=== PATIENT | female | born 1955 | race Hispanic/Latino ===

== ENCOUNTER 2016-09-10 18:47 | Inpatient (IN) | payer MEDICAID ==
[~2016-09-10] VITALS: Ht 160 cm; Wt 115.9 kg
[~2016-09-10 18:47] MED LIST: FLUO20TA28 PO; FURO-129 PO; INSU100V7 SUBQ; OMEP10CA4 PO; OXYC-474 PO; SPIR100T3 PO
[2016-09-10 19:10] VITALS: BP 169/63; PULSE 76; RESP 20; O2SAT 100
[2016-09-10 20:03] LABS: BASOPHILS % (AUTO) 0.2 % (0-3); EOSINOPHILS % (AUTO) 9.3 % (0-5); MONOCYTES % (AUTO) 7.6 % (4-12); Mean Corpuscular Hemoglobin 30.1 pg (27.0-35.0); Mean Corpuscular Volume 85.9 fL (81-100); NEUTROPHILS % (AUTO) 56.5 % (40-74); Platelet Count 62 bil/L (150-400)
[2016-09-10 20:41] LABS: TROPONIN T 0.068 ug/L (0.0-0.011)
--- NOTE | 2016-09-10 20:55 | ED.REPORT ---
HPI-Chest Pain 40 and Over Date of Service Sep 10, 2016 ED Provider: Bryce Tsai MD Pt is a 61 y/o Fijian speaking female w/ a hx of Hep C, liver cirrhosis, ID2TDM , HTN, presenting to the ED c/o gradually worsening SOB for 1 month. She was diagnosed with cirrhosis 1 year ago and her ascites is being treated with diuretics but she believes she is becoming increasingly distended despite treatment. She c/o associated diffuse abdominal pain onset this morning, intermittent chills. She denies chest pain, fever, N/V/D, confusion. She denies history of GA. She was told during her previous admit at [facility] that her ascites may have been affecting her heart and that her platelets were low. She has never had a paracentesis performed before. There is a scheduled appointment for an endoscopy later this month. Nursing Notes Stated Complaint: FEER,BODY SWOLLEN Chief Complaint: General Complaint Nursing Notes Reviewed: Yes Allergies: Coded Allergies: No Known Allergies (Verified Allergy, Unknown, 09/10/16) Scheduled Fluoxetine (Fluoxetine) 20 Mg Tablet 20 MG PO DAILY Furosemide (Lasix) 20 Mg Tablet 40 MG PO MORNING Take 2 of your 20 mg tablets every morning. Insulin Glargine (Lantus U100 Insulin Vial) 100 Unit/Ml Vial 50 UNIT SUBQ BID Omeprazole (Omeprazole) 10 Mg Capsule.dr 10 MG PO MORNING Spironolactone (Spironolactone) 100 Mg Tablet 50 MG PO DAILY Cut your 100 mg pills in half. Take just half a pill a day. Scheduled PRN Oxycodone (Roxicodone) 5 Mg Tablet 5 MG PO DAILY PRN PRN Severe pain General Time Seen by MD: 20:54 Chief Complaint Shortness of breath Hx Obtained From: Patient, Slurry Man (Granddaughter) Arrived By: Walk-in Sudden in Onset?: No Onset Occurred: More than a week ago... 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 Portal hypertension with leg edema and Ascites c. Hypervolemic hypotonic hyponatremia secondary to cirrhosis Insulin dependent type 2 diabetes Hypertension GERD Past Surgical History None reported Smoking History Never Smoker Social History Lives with family Alcohol Use: Denies alcohol use Drug Use: Denies drug use Other Social History: Good social support, Local resident Ambulatory Status Independent Review of Systems Review of Systems Note: +ascites Constitutional: Reports: Chills, Denies: Fever Respiratory: Reports: Shortness of breath Cardiovascular: Denies: Chest pain GI: Reports: Abdominal pain, Denies: Diarrhea, Nausea, Vomiting Neurologic: Denies: Confusion Complete sys rev & neg: except as marked. Physical Exam Initial Vital Signs Vital Signs (First) Date Time Temp Pulse Resp B/P Pulse Ox O2 Delivery O2 Flow Rate FiO2 09/10/16 19:10 36.6 76 20 169/63 100 Room Air Initial VS: Reviewed, Vital signs normal Head / Eyes: Atraumatic, Normocephalic, PERRL ENT: Mucous membranes moist, Conjunctiva normal, No scleral icterus Neck: Supple, Full range of motion Skin: Warm, Dry, No cyanosis Neurologic: Alert, Oriented, Nonfocal Psychiatric: Mood/affect normal, Behavior normal, Normal thought content General/Constitutional: Awake, Alert, Cooperative, Not toxic appearing Distress / Hydration: Positive: Distress mild Abdomen: Atraumatic, Soft Tenderness/Guarding/Rebound: Positive: Tender diffuse (mild, worse in RUQ) Bowel Sounds / Distention: Positive: Distention moderate Interpretation & Diagnostics Lab Results Interpretation Result Diagram: 09/11/16 0612 09/11/16 0612 Test 09/10/16 19:55 Lipase 48U/L (13-60) Hold Mcdonough Top Tube Received (Received) Lab Results Interpretation: Pancytopenia, mild kidney injury ECG Interpretation ECG Interpretation: Sinus rhythm rate 76 LAFB Time: 22:00 Interpreted by: ED physician Normal ECG Interpretation: No acute ischemic changes Re-Eval/Medical Decision Med Decision/Clinical Course 61-year-old female with a history of chronic renal failure and ascites presents with worsening abdominal distention and abdominal pain. She has been somewhat short of breath. She was found to be pancytopenic including a platelet count 62 ,000. INR was within normal limits. Her troponin was elevated without EKG changes. Her case was discussed with Dr. Dominguez and she will be admitted to the hospitalist service. She will cover her with antibiotics for SBP and consider tapping later in the day under ultrasound guidance. Serial troponins and EKGs. She was not placed on heparin due to her thrombocytopenia. Time of Eval: 21:53 Re-Evaluation/Progress Note: Pt rechecked. Condition stable. Pt informed of need for admission. Pt understands and agrees with plan for admission. All questions addressed. Consultation : Referral / Consult Name: Kenya Dominguez DO Consulted With: Hospitalist Call Returned at: 22:38 Mill Machinist: Will see patient, Agrees with eval, Agrees with plan, Accepts admit Counseled Regarding: Diagnosis, Lab results, Need for admission Discharge & Departure Primary Impression: Ascites Ascites type: other type Qualified Code: R18.8 - Other ascites Additional Impression: Elevated troponin Disposition: ADMITTED TO HOSPITAL Discharge Condition All VS Reviewed: Yes Condition: Stable Referrals: ANDREA BOYD PA-C (PCP) Scribe Attestation Portions of this note were transcribed by Emmanuel Zavala. I, Dr. Tsai personally performed the history, physical exam and medical decision-making; I reviewed and confirmed the accuracy of the information in the transcribed note. Signed by Urszula Sadler, 09/10/16 - [id number] copies to: ANDREA BOYD PA-C, Howard L MD Sep 10, 2016 20:55 EMMANUEL ZAVALA Sep 10, 2016 21:15 (0.57-1.00) Estimat Glomerular Filtration Rate 53mL/min (>59) Glucose Level 354mg/dL (60-99) Calcium Level 8.2mg/dL (8.5-10.1) Magnesium Level 2.0mg/dL (1.6-2.6) Total Bilirubin 1.5mg/dL (0.0-1.2) Aspartate Amino Transf (AST/SGOT) 59U/L (0-50) Alanine Aminotransferase (ALT/SGPT) 46U/L (0-32) Alkaline Phosphatase 298U/L (25-165) Troponin T 0.068ug/L (0.0-0.011) Total Protein 5.6g/dL (6.4-8.4) Albumin 2.6g/dL (3.4-5.0) Hold Mcdonough Top Tube Received (Received) ECG Interpretation ECG Interpretation: Sinus rhythm rate 76 LAFB Time: 22:00 Interpreted by: ED physician Normal ECG Interpretation: No acute ischemic changes Re-Eval/Medical Decision Time of Eval: 21:53 Re-Evaluation/Progress Note: Pt rechecked. Condition stable. Pt informed of need for admission. Pt understands and agrees with plan for admission. All questions addressed. Consultation : Referral / Consult Name: Kenya Dominguez DO Consulted With: Hospitalist Call Returned at: 22:38 Mill Machinist: Will see patient, Agrees with eval, Agrees with plan, Accepts admit Counseled Regarding: Diagnosis, Lab results, Need for admission Discharge & Departure Primary Impression: Ascites Ascites type: other type Qualified Code: R18.8 - Other ascites Additional Impression: Elevated troponin Disposition: ADMITTED TO HOSPITAL Discharge Condition All VS Reviewed: Yes Condition: Stable Referrals: ANDREA BOYD PA-C (PCP) Scribe Attestation Portions of this note were transcribed by Emmanuel Zavala. I, Dr. Tsai personally performed the history, physical exam and medical decision-making; I reviewed and confirmed the accuracy of the information in the transcribed note. Signed by Urszula Sadler, 09/10/16 - [id number] copies to: ANDREA BOYD PA-C, Howard L MD Sep 10, 2016 20:55 EMMANUEL ZAVALA Sep 10, 2016 21:15
[2016-09-10 21:55] VITALS: BP 155/53; PULSE 76; RESP 18; O2SAT 96
[2016-09-10] MEDS ORDERED: Polyethylene Glycol (PEG) 17 Gm Powder PO PRN (22:40)
[2016-09-10] MEDS ORDERED: Alum-Mag Hydrox-Simeth 30 mL Suspension PO PRN (22:40)
[2016-09-10] MEDS ORDERED: Ondansetron 2 mg/mL 2 mL Inj IVPUSH PRN (22:40)
[2016-09-10] MEDS ORDERED: cefTRIAXone Inj 2 GM in IV Premix 1 EACH IV ONE (23:05)
[2016-09-10 23:20] LABS: INR 1.02 ratio
[2016-09-11] VITALS (8 sets, daily range): BP systolic 148–171; BP diastolic 42–78; PULSE 73–77; RESP 17–22; O2SAT 95–99
[2016-09-11] MEDS ORDERED: HYDROmorphone 0.5 mg/0.5 mL iSecure Syringe IVPUSH PRN (00:35)
[2016-09-11] MEDS ORDERED: Heparin 5,000 Unit/mL Inj SUBQ SCH (01:00)
[2016-09-11] MEDS ORDERED: Glucose 40% Oral Gel 15 Gm Tube PO PRN (01:00)
--- NOTE | 2016-09-11 01:07 | PCM.HPMED ---
Subjective Date of Service Sep 10, 2016 Primary Provider: Admitting Physician: Kenya Dominguez DO Primary Care Physician: Ngozi Burk Pa-C Attending Physician: Kenya Dominguez DO Chief Complaint: abdominal bloating History of Present Illness: Pt is a 61 y/o Guyanese speaking female w/ a hx of Hep C and subsequent liver cirrhosis, HTN, and DM2 on insulin, presenting to the ED c/o gradually worsening SOB and increasing abdominal girth for 1 month. She was diagnosed with cirrhosis 1 year ago and her ascites is normally treated with diuretics, but in the past month she is having progressive peripheral edema and increasing abdominal girth. She also reports diffuse abdominal pain and intermittent bouts of fever/chills throughout the past month. She denies chest pain, fever, N/V/D, or hematochezia. She was told during her previous admit at [facility] that her ascites may have been affecting her heart and that her platelets were low, but has never had a paracentesis performed before. There is a scheduled appointment with her ceramic tile installer at for an endoscopy later this month. She reports she has not taken her Insulin yet today. Review of Systems: 12 point review of systems is negative except as in HPI. Allergies Coded Allergies: No Known Allergies (Verified Allergy, Unknown, 09/10/16) Home Medications Fluoxetine (Fluoxetine) 20 Mg Tablet 20 MG PO DAILY Furosemide (Lasix) 20 Mg Tablet 40 MG PO MORNING Take 2 of your 20 mg tablets every morning. Insulin Glargine (Lantus U100 Insulin Vial) 100 Unit/Ml Vial 50 UNIT SUBQ BID Omeprazole (Omeprazole) 10 Mg Capsule.dr 10 MG PO MORNING Spironolactone (Spironolactone) 100 Mg Tablet (50 MG PO DAILY) Cut your 100 mg pills in half. Take just half a pill a day. 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 Social History Hx Alcohol Use: No Hx Substance Use: No Hx Tobacco Use: No Smoking Status: Never Smoker Living Arrangement: with Family Exam Vital Signs Vital Sign - Last Date Time Temp Pulse Resp B/P Pulse Ox O2 Delivery O2 Flow Rate FiO2 09/10/16 21:55 76 18 155/53 96 Room Air 09/10/16 19:10 36.6 Exam General - Morbidly obese female lying in bed, holding her abdomen in mild distress. HEENT - Anicteric sclera, EOMI, PERRLA. Membranes pink and moist. Neck - Supple, full ROM without tenderness. JVD present. Cardiac - RRR, no m/r/g. Pulses intact. Lungs - CTAB with decreased breath sounds throughout, no w/r/r Abd - Obese, firm, distended, diffusely tender. mild guarding. No rebound noted , +BS. Organomegaly not assessed due to pain and size of abdomen. Extremities - Bilateral LE edema, no cyanosis or clubbing. Neurovascularly intact. Neuro - A&Ox3. CN 2-12 intact. Muscle strength 5/5 in all extremities, sensation intact. Psych - Appropriate mood, affect, and responses. Patient is anxious about possible fluid drainage procedure. Skin - Warm, dry. Large ecchymosis on her right dorsal forearm. Lab and Diagnostics Result Diagram: 09/10/16195409/10/161954 12-lead ECG Sinus rhythm rate 76 LAFB Assessment & Plan Ms. Cosme is a 61 y/o Guyanese speaking female with a history of Hep C, liver cirrhosis, HTN, and DM2 on insulin, presenting to the ED c/o gradually worsening SOB, intermittent fevers and chills, with increasing abdominal girth for 1 month. Her presentation is suspicious for Bacterial Peritonitis, so she is admitted for treatment. #Suspected Spontaneous Bacterial Peritonitis, POA With patient's presentation and history, SBP is very suspicious. Will continue the IV Ceftriaxone 2 grams Q24h that was began in the ED on 09/11. CT abd w/o contrast pending Consult GI in the AM #Cirrhosis with Ascites secondary to Hep C, POA Likely the source of her anemia and thrombocytopenia. Currently being followed at Her AST, ALT, Tbili, and Alk Phos are all mildly elevated, but is per her baseline and is likely due to this disease process Continue home spironolactone 50mg daily Will use IV Lasix 40 mg BID to increase diuresis in the short term. Transition to oral Lasix when appropriately dry Add Potassium supplement if K decreases. Avoid Hepatotoxic agents #Elevated Creatinine, POA Patient has had similarly elevated Cr in the past few hospital visits. Likely is CKD from Hepatorenal syndrome. Cr 1.43 on admit Avoid nephrotoxic agents. Consider nephrology consultation if worsens. #Elevated Troponin, POA Trop of 0.068 on admit, Likely due to her elevated Cr EKG showed NSR Will trend for evaluation #Type 2 Diabetes Mellitus, Insulin dependent, Uncontrolled, POA Patient has a blood sugar of 354 in the ED HgbA1c pending, last A1c in 05/08 was 8.7 Initiated Lispro high dose correctional scale with Lantus 50 units BID per home regimen #Hypertension, POA Chronic, Stable #GERD, POA Continue home omeprazole 10mg Bowel Regimen PRN Dispo: Due to patient's medical complexity and decompensation, she will require at least 2 nights for evaluation and treatment. Pain Evaluation: Adequate Pain Control VTE Prophylaxis: Sub-Q Heparin (Unfractionated) (managed per Pharmacy) Resuscitation Status: CPR: Attempt Resuscitation Attending Statement The patient was seen and examined together with house staff on 09/11/2016 and I agree with the history, exam and plan as outlined in the note above. Derrick Rios DO Sep 11, 2016 00:28 Kenya Dominguez DO Sep 11, 2016 07:04
[2016-09-11] MEDS: Furosemide 10 mg/mL 4 mL Inj IVPUSH SCH ×3 (01:45→21:40)
--- NOTE | 2016-09-11 05:25 | NUR ---
Admit Admit done in ED and patient transferred to 1030 via bed. Able to ambulate with SBA. RA w/o SOB @ rest with HOB elevated but reports SOB while laying flat or with activity. Denies CP or discomfort. Generalized edema throughout. LAC IV SL. Tolerating PO intake without difficulties. Toileting per bathroom without any noted issues. Oriented to call light use with return demonstration. Personal belongings at bedside per patient request. Report given to receiving RN.
--- NOTE | 2016-09-11 05:56 | NUR ---
Arrival on [facility] Pt arrived ob [facility] around 0315, A&O, denies any pain just pressure from the ascites. Pt reports SOB and is unable to lie flat. Pt oriented to room and amenities.
[2016-09-11 06:35] LABS: BASOPHILS % (AUTO) 0.2 % (0-3); EOSINOPHILS % (AUTO) 8.8 % (0-5); Mean Corpuscular Hemoglobin 29.7 pg (27.0-35.0); Mean Corpuscular Volume 85.7 fL (81-100); NEUTROPHILS % (AUTO) 53.3 % (40-74); Platelet Count 55 bil/L (150-400)
[2016-09-11 06:47] LABS: INR 1.06 ratio
[2016-09-11 07:17] LABS: Magnesium 1.9 mg/dL (1.6-2.6)
[2016-09-11 07:51] LABS: TROPONIN T 0.09 ug/L (0.0-0.011)
[2016-09-11] MEDS ORDERED: FUR20 PO (08:30)
[2016-09-11] MEDS: Pantoprazole 40 mg ER24 Tablet PO SCH (10:29)
[2016-09-11] MEDS: Insulin LISPRO 300 Unit/3 mL Inj SUBQ SCH ×4 (10:30→22:00)
[2016-09-11] MEDS: Insulin GLARgine 100 Unit/mL Syringe SUBQ SCH ×2 (10:30→22:07)
[2016-09-11] MEDS ORDERED: SPIR50TA2 PO (13:34)
[2016-09-11] MEDS ORDERED: FRSM80T PO (13:34)
--- NOTE | 2016-09-11 14:27 | DRSVH ---
PROCEDURE: CT ABDOMEN AND PELVIS WITHOUT CONTRAST ([id number]) INDICATIONS: abd pain, ascites TECHNIQUE: After the administration of oral contrast, 5 mm thick sections acquired from the diaphragms to the sy mphysis. 5 mm coronal and sagittal reformats were performed. For radiation dose reduction, the foll owing was used: automated exposure control, adjustment of mA and/or kV according to patient size. COMPARISON: [facility], CT, CT ABD PELVIS W CON, 10/23/2015, 23:40. FINDINGS: Image quality: Excellent. ABDOMEN: Lung bases: Mild right pleural effusion. Heart size is normal. Solid organs: Liver is cirrhotic. The spleen is enlarged. Gallbladder has been removed. Pancreas is normal in size. No adrenal nodules. Both kidneys are normal in size, without hydronephrosis or n ephrolithiasis. Peritoneum and bowel: Bowel loops demonstrate normal wall thickness and caliber. No air. Nodes and vessels: No retroperitoneal or mesenteric adenopathy by size criteria. Aorta and inferior vena cava are normal in size. Calcific splenic artery aneurysm, unchanged. Prominent portal venous collaterals. Miscellaneous: No ventral hernias. There is mild perihepatic and perisplenic fluid. PELVIS: Genitourinary: Bladder wall demonstrates mild anterior bladder wall thickening. Miscellaneous: No inguinal hernias or adenopathy. Mild dependent pelvic fluid. Bones: No suspicious bony lesions. No vertebral body compression fractures. IMPRESSION: 1. Mild right pleural effusion. 2. Cirrhosis with portal venous hypertension with varices. 3. Mild abdominal or pelvic fluid. Dictated by: Nicole Forbes M.D. on 09/11/2016 at 14:25 Approved by: Nicole Forbes M.D. on 09/11/2016 at 14:25
--- NOTE | 2016-09-11 18:48 | PCM.PNMED ---
Subjective Date of Service Sep 11, 2016 Subjective Patient was examined at bedside today. Patient denies any chest pain, shortness of breath, nausea, vomiting. Patient complains of diarrhea and abdominal pain. Exam Vital Signs Vital Sign - Last Date Time Temp Pulse Resp B/P Pulse Ox O2 Delivery O2 Flow Rate FiO2 09/11/16 16:35 157/72 09/11/16 15:51 36.7 74 17 98 Room Air Intake and Output 09/10/16 09/10/16 09/11/16 Cumulative From/Thru 15:00 23:00 07:00 09/10/16 19:10 - 09/11/16 06:58 Intake Total 200 ml 200 ml Balance 200 ml 200 ml Intake Oral 200 ml 200 ml # Voids 1 1 # Bowel Movements 0 0 Exam Physical Exam: GEN: Patient was awake, alert, responding appropriately to questions HEENT: PERRLA, EOMI, Neck soft supple, trachea midline, nomocephalic/atraumatic CV: +S1/S2, RRR, no murmurs auscultated Respiratory: CTAB, no wheezes, rales, rhonchi GI: +bowel sounds x4, firm, distended mild tenderness to palpation especially in the lower quadrants EXT: +2 pitting edema to the knees Neuro: CN II-XII grossly intact Psych: mood and affect were appropriate IVs and Medications Medications Reviewed: Medications were reviewed in detail Medications Current Medications Al Hydrox/Mg Hydrox/Simethicone 30 ml Q6H PRN PO; Start 09/10/16 at 22:40 Ondansetron HCl 4 to 8 mg Q4H PRN IVPUSH; Start 09/10/16 at 22:40 Senna 17.2 mg BID PRN PO; Start 09/10/16 at 22:40 Polyethylene Glycol 17 gm DAILY PRN PO; Start 09/10/16 at 22:40 Heparin Sodium (Porcine) 7,500 unit Q12H SUBQ Last administered on 09/11/16t 01: 45; Admin Dose 7,500 UNIT; Start 09/11/16 at 01:00; Stop 09/11/16 at 14:26; Status DC Temazepam 15 mg 15 mg HS PRN PO; Start 09/11/16 at 00:30; Stop 09/11/16 at 07: 06; Status DC Ceftriaxone Sodium/Dextrose/ Premix 50 ml @ 100 mls/hr Q24 IV; Start 09/11/16 at 23:00 Fluoxetine HCl 20 mg DAILY PO; Start 09/11/16 at 08:30 Pantoprazole 40 mg 0630 PO Last administered on 09/11/16 10:29; Admin Dose 40 MG; Start 09/11/16 at 06:30 Spironolactone 50 mg DAILY PO Last administered on 09/11/16 12:18; Admin Dose 50 MG; Start 09/11/16 at 08:30 Hydromorphone HCl 0.5 mg Q4H PRN IVPUSH; Start 09/11/16 at 00:35 Insulin Glargine 50 unit BID@08,22 SUBQ Last administered on 09/11/16 10:30; Admin Dose 50 UNIT; Start 09/11/16 at 08:00 Insulin Human Lispro Nutritional Dose to be given pr... [facility] SUBQ Last administered on 09/11/16 13:43; Admin Dose 4 UNIT; Start 09/11/16 at 08:00 Furosemide 40 mg BID IVPUSH Last administered on 09/11/16 12:18; Admin Dose 40 MG; Start 09/11/16 at 01:00 Lab and Diagnostics Result Diagram: 09/11/16 1325 09/11/16 0612 X-Rays, CTs and MRIs PROCEDURE: CT ABDOMEN AND PELVIS WITHOUT CONTRAST ([id number]) INDICATIONS: abd pain, ascites TECHNIQUE: After the administration of oral contrast, 5 mm thick sections acquired from the diaphragms to the symphysis. 5 mm coronal and sagittal reformats were performed. For radiation dose reduction, the following was used: automated exposure control, adjustment of mA and/or kV according to patient size. COMPARISON: [facility], CT, CT ABD PELVIS W CON, 10/23/2015, 23:40. FINDINGS: Image quality: Excellent. ABDOMEN: Lung bases: Mild right pleural effusion. Heart size is normal. Solid organs: Liver is cirrhotic. The spleen is enlarged. Gallbladder has been removed. Pancreas is normal in size. No adrenal nodules. Both kidneys are normal in size, without hydronephrosis or nephrolithiasis. Peritoneum and bowel: Bowel loops demonstrate normal wall thickness and caliber. No air. Nodes and vessels: No retroperitoneal or mesenteric adenopathy by size criteria. Aorta and inferior vena cava are normal in size. Calcific splenic artery aneurysm, unchanged. Prominent portal venous collaterals. Miscellaneous: No ventral hernias. There is mild perihepatic and perisplenic fluid. PELVIS: Genitourinary: Bladder wall demonstrates mild anterior bladder wall thickening. Miscellaneous: No inguinal hernias or adenopathy. Mild dependent pelvic fluid. Bones: No suspicious bony lesions. No vertebral body compression fractures. IMPRESSION: 1. Mild right pleural effusion. 2. Cirrhosis with portal venous hypertension with varices. 3. Mild abdominal or pelvic fluid. Dictated by: Nicole Forbes M.D. on 09/11/2016 at 14:25 Approved by: Nicole Forbes M.D. on 09/11/2016 at 14:25 12-lead ECG Sinus rhythm rate 76 LAFB Assessment & Plan Ms. Cosme is a 61 y/o [place] Island[place] speaking female with a history of Hep C, liver cirrhosis, HTN, and DM2 on insulin, presenting to the ED c/o gradually worsening SOB, intermittent fevers and chills, with increasing abdominal girth for 1 month. Her presentation is suspicious for Bacterial Peritonitis, so she is admitted for treatment. Suspected Spontaneous Bacterial Peritonitis, POA With patient's presentation and history, SBP is very suspicious. -- Continue the IV Ceftriaxone 2 grams Q24h that was began in the ED on 09/11. --CT abd w/o contrast: Mild right pleural effusion, Cirrhosis with portal venous hypertension with varices, Mild abdominal or pelvic fluid. --GI consulted Diarrhea -- Contact precautions -- Send out stool for C. difficile Cirrhosis with Ascites secondary to Hep C, POA Likely the source of her anemia and thrombocytopenia. Currently being followed at Her AST, ALT, Tbili, and Alk Phos are all mildly elevated, but is per her baseline and is likely due to this disease process Continue home spironolactone 50mg daily Will use IV Lasix 40 mg BID to increase diuresis in the short term. Transition to oral Lasix when appropriately dry Add Potassium supplement if K decreases. Avoid Hepatotoxic agents Elevated Creatinine, POA --Patient has had similarly elevated Cr in the past few hospital visits. Likely is CKD from Hepatorenal syndrome. --Cr 1.43 on admit, improved today 1.36 --Avoid nephrotoxic agents. Consider nephrology consultation if worsens. Elevated Troponin, POA --Trop of 0.068 on admit, Likely due to her elevated Cr --EKG showed NSR --Will trend for evaluation Type 2 Diabetes Mellitus, Insulin dependent, Uncontrolled, POA Patient has a blood sugar of 354 in the ED HgbA1c pending, last A1c in 05/08 was 8.7 Initiated Lispro high dose correctional scale with Lantus 50 units BID per home regimen Hypertension Chronic, Stable GERD Continue home omeprazole 10mg Bowel Regimen PRN Dispo: Patient states that she feels that the ascites is lessening however it still very significant. We will consider recommendations from GI. We will continue to monitor the patient's troponins and follow-up on possible C. difficile. VTE Prophylaxis: Sub-Q Heparin (Unfractionated) (managed per Pharmacy) Resuscitation Status: CPR: Attempt Resuscitation Mayra Glynn DO Sep 11, 2016 18:48
--- NOTE | 2016-09-11 20:04 | NUR ---
diarrhea Pt denies pain this shift. Encouraging pt to elevate LE on pillows to help decrease edema, also has SCDs, receiving IV lasix and po spironolactone today. Pt this afternoon tells RN that she has had 4 loose stools today, only one loose brown stool visualized by RN. Pt states she has had diarrhea for 5 days at home as well. MD notified, orders to send stool sample for r/o c.diff. Contact enteric isolation placed and hat placed in toilet, explained to pt about update of plan of care via production support analyst and did teaching with family in room to wash hands with soap and water and wear a gown until r/o for c.diff, pt and family agreeable to plan of care and verbalized understanding. Call light in reach. Bed alarm for safety. Care continues.
[2016-09-11] MEDS ORDERED: 0.9% Sodium Chloride 250 ML ONE (22:18)
[2016-09-11] MEDS ORDERED: cefTRIAXone Inj 2,000 MG in IV Premix 1 EACH IV SCH (23:00)
[2016-09-12] VITALS (9 sets, daily range): BP systolic 144–179; BP diastolic 65–79; PULSE 70–79; RESP 17–21; O2SAT 97–100
--- NOTE | 2016-09-12 03:22 | NUR ---
DIARRHEA/VOIDING: Pt. was given 40 mg of IV Lasix at HS, has been up several times tonight to void. Still having small loose stools with each void. Sent sample to lab for C-diff studies. Has generalized edema, lower extremities and both feet very puffy. Keeping both legs elevated on pillows and foot of the bed is also elevated. Pt. gets SOB on exertion, unable to lay flat in bed. RA, saturation in the high 90s. Denies any pain. Using the [facility] [place] tonight due to frequent voids and stools. A & O, vss. On going care.
[2016-09-12] MEDS: Pantoprazole 40 mg ER24 Tablet PO SCH (06:37)
[2016-09-12] MEDS: Insulin LISPRO 300 Unit/3 mL Inj SUBQ SCH ×4 (07:09→22:00)
[2016-09-12 08:04] LABS: Mean Corpuscular Hemoglobin 29.5 pg (27.0-35.0); Mean Corpuscular Volume 86.5 fL (81-100)
[2016-09-12 08:46] LABS: TROPONIN T 0.094 ug/L (0.0-0.011)
[2016-09-12] MEDS: Insulin GLARgine 100 Unit/mL Syringe SUBQ SCH ×2 (09:09→21:44)
[2016-09-12] MEDS: Furosemide 10 mg/mL 4 mL Inj IVPUSH SCH ×2 (09:09→21:26)
--- NOTE | 2016-09-12 09:27 | NUR ---
Evaluation completed. Please go to "Notes" then click on "Assessments and Notes" (bottom left corner of screen). Then select appropriate discipline tab on top of screen.
[2016-09-12] MEDS: cefTRIAXone Inj 2,000 MG in Dextrose 5% Minibag Plus 50 ML IV SCH (11:31)
--- NOTE | 2016-09-12 16:11 | PCM.PNMED ---
Subjective Date of Service Sep 12, 2016 Subjective Patient was examined at bedside today. Patient denies any chest pain, shortness of breath, nausea, vomiting, diarrhea. Patient states that her abdominal pain has improved from yesterday and denies any pain currently. Patient states that she is still having abdominal swelling and lower extremity swelling which she feels only minimally improved. Exam Vital Signs Vital Sign - Last Date Time Temp Pulse Resp B/P Pulse Ox O2 Delivery O2 Flow Rate FiO2 09/12/16 10:43 36.7 75 18 149/70 98 Room Air Intake and Output 09/11/16 09/11/16 09/12/16 Cumulative From/Thru 14:59 22:59 06:59 09/10/16 19:10 - 09/12/16 06:43 Intake Total 900 ml 660 ml 1760 ml Output Total 900 ml 900 ml Balance 900 ml -240 ml 860 ml Intake Oral 900 ml 600 ml 1700 ml IV Total 60 ml 60 ml Output Urine Total 900 ml 900 ml # Voids 3 5 9 # Bowel Movements 4 3 7 Exam Physical Exam: GEN: Patient was awake, alert, responding appropriately to questions HEENT: PERRLA, EOMI, Neck soft supple, trachea midline, nomocephalic/atraumatic CV: +S1/S2, RRR, no murmurs auscultated Respiratory: CTAB, no wheezes, rales, rhonchi GI: +bowel sounds x4, compressible, non-TTP, positive abdominal distention EXT: no c/c +2 pitting edema in the lower extremities bilaterally Neuro: CN II-XII grossly intact Psych: mood and affect were appropriate IVs and Medications Medications Reviewed: Medications were reviewed in detail Medications Current Medications Al Hydrox/Mg Hydrox/Simethicone 30 ml Q6H PRN PO; Start 09/10/16 at 22:40 Ondansetron HCl 4 to 8 mg Q4H PRN IVPUSH; Start 09/10/16 at 22:40 Senna 17.2 mg BID PRN PO; Start 09/10/16 at 22:40 Polyethylene Glycol 17 gm DAILY PRN PO; Start 09/10/16 at 22:40 Heparin Sodium (Porcine) 7,500 unit Q12H SUBQ Last administered on 09/11/16t 01: 45; Admin Dose 7,500 UNIT; Start 09/11/16 at 01:00; Stop 09/11/16 at 14:26; Status DC Temazepam 15 mg 15 mg HS PRN PO; Start 09/11/16 at 00:30; Stop 09/11/16 at 07: 06; Status DC Ceftriaxone Sodium/Dextrose/ Premix 50 ml @ 100 mls/hr Q24 IV; Start 09/11/16 at 23:00; Stop 09/11/16 at 23:02; Status DC Fluoxetine HCl 20 mg DAILY PO Last administered on 09/12/16 09:09; Admin Dose 20 MG; Start 09/11/16 at 08:30 Pantoprazole 40 mg 0630 PO Last administered on 09/12/16 06:37; Admin Dose 40 MG; Start 09/11/16 at 06:30 Spironolactone 50 mg DAILY PO Last administered on 09/12/16 09:09; Admin Dose 50 MG; Start 09/11/16 at 08:30 Hydromorphone HCl 0.5 mg Q4H PRN IVPUSH; Start 09/11/16 at 00:35 Insulin Glargine 50 unit BID@08,22 SUBQ Last administered on 09/12/16 09:09; Admin Dose 50 UNIT; Start 09/11/16 at 08:00 Insulin Human Lispro Nutritional Dose to be given pr... [facility] SUBQ Last administered on 09/12/16 12:03; Admin Dose 2 UNIT; Start 09/11/16 at 08:00 Furosemide 40 mg 40 mg BID IVPUSH Last administered on 09/12/16 09:09; Admin Dose 40 MG; Start 09/11/16 at 01:00 Ceftriaxone Sodium/Dextrose/ Water 50 ml @ 100 mls/hr Q24 IV Last administered on 09/12/16 11:31; Admin Dose 100 MLS/HR; Start 09/12/16 at 08:30 Lab and Diagnostics Result Diagram: 09/12/1640 09/12/16 0740 X-Rays, CTs and MRIs PROCEDURE: CT ABDOMEN AND PELVIS WITHOUT CONTRAST ([id number]) INDICATIONS: abd pain, ascites TECHNIQUE: After the administration of oral contrast, 5 mm thick sections acquired from the diaphragms to the symphysis. 5 mm coronal and sagittal reformats were performed. For radiation dose reduction, the following was used: automated exposure control, adjustment of mA and/or kV according to patient size. COMPARISON: [facility], CT, CT ABD PELVIS W CON, 10/23/2015, 23:40. FINDINGS: Image quality: Excellent. ABDOMEN: Lung bases: Mild right pleural effusion. Heart size is normal. Solid organs: Liver is cirrhotic. The spleen is enlarged. Gallbladder has been removed. Pancreas is normal in size. No adrenal nodules. Both kidneys are normal in size, without hydronephrosis or nephrolithiasis. Peritoneum and bowel: Bowel loops demonstrate normal wall thickness and caliber. No air. Nodes and vessels: No retroperitoneal or mesenteric adenopathy by size criteria. Aorta and inferior vena cava are normal in size. Calcific splenic artery aneurysm, unchanged. Prominent portal venous collaterals. Miscellaneous: No ventral hernias. There is mild perihepatic and perisplenic fluid. PELVIS: Genitourinary: Bladder wall demonstrates mild anterior bladder wall thickening. Miscellaneous: No inguinal hernias or adenopathy. Mild dependent pelvic fluid. Bones: No suspicious bony lesions. No vertebral body compression fractures. IMPRESSION: 1. Mild right pleural effusion. 2. Cirrhosis with portal venous hypertension with varices. 3. Mild abdominal or pelvic fluid. Dictated by: Nicole Forbes M.D. on 09/11/2016 at 14:25 Approved by: Nicole Forbes M.D. on 09/11/2016 at 14:25 12-lead ECG Sinus rhythm rate 76 LAFB Assessment & Plan Ms. Cosme is a 61 y/o Maori speaking female with a history of Hep C, liver cirrhosis, HTN, and DM2 on insulin, presenting to the ED c/o gradually worsening SOB, intermittent fevers and chills, with increasing abdominal girth for 1 month. Her presentation is suspicious for Bacterial Peritonitis, so she is admitted for treatment. Suspected Spontaneous Bacterial Peritonitis With patient's presentation and history, SBP is very suspicious. -- Continue the IV Ceftriaxone 2 grams Q24h that was began in the ED on 09/11. --CT abd w/o contrast: Mild right pleural effusion, Cirrhosis with portal venous hypertension with varices, Mild abdominal or pelvic fluid. -- Consult GI and would appreciate their recommendations Diarrhea -- Discontinue Contact precautions -- C. difficile culture negative -- Encourage high-fiber diet Cirrhosis with Ascites secondary to Hep C Likely the source of her anemia and thrombocytopenia. Currently being followed at Her AST, ALT, Tbili, and Alk Phos are all mildly elevated, but is per her baseline and is likely due to this disease process Continue home spironolactone 50mg daily --Will use IV Lasix 40 mg BID to increase diuresis in the short term. Transition to oral Lasix when appropriately dry --Add Potassium supplement if K decreases. --Avoid Hepatotoxic agents Elevated Creatinine --Patient has had similarly elevated Cr in the past few hospital visits. Likely is CKD from Hepatorenal syndrome. --Cr 1.43 on admit, improved today 1.36 --Avoid nephrotoxic agents. Consider nephrology consultation if worsens. Elevated Troponin --Trop of 0.068 on admit, Likely due to her elevated Cr, -- Subsequent troponin 0.090 on 09/11/2016 and 0.094 on 09/12/2016 most likely troponin leak --EKG on admission showed NSR --Will trend for evaluation -- We will continue to monitor on telemetry Type 2 Diabetes Mellitus, Insulin dependent, Uncontrolled, POA --Patient has a blood sugar of 354 in the ED --HgbA1c 6.4, last A1c in 05/08 was 8.7 -- continue Lispro high dose correctional scale with Lantus 50 units BID per home regimen Hypertension --Chronic, Stable GERD --Continue home omeprazole 10mg Bowel Regimen PRN Dispo: Patient states that she is feeling improved however she denies any changes in the edema. Patient does have a endoscopy scheduled on September 21 with her liquefaction supervisor. Patient does have a negative balance of -240mls for I's and O's. We will continue to use Lasix IV however will need to continue to watch her kidneys as her creatinine may be worsening secondary to Lasix usage. We will continue to monitor the patient in except any recommendations from GI. VTE Prophylaxis: Sub-Q Heparin (Unfractionated) (managed per Pharmacy) VTE Mechanical Devices: Intermittant Pneumatic CD Resuscitation Status: CPR: Attempt Resuscitation Mayra Glynn DO Sep 12, 2016 16:11
--- NOTE | 2016-09-12 18:31 | NUR ---
Ascites P: Abdomen continues to be ascitic, causing SOB, and decreased appetite. I: Lasix administered E: Improved SOB, able to lay flat and has increased activity in her room. Continues to complain of pressure and edema in upper abdomen.
[2016-09-12 20:07] LABS: APPEARANCE,URINE CLEAR (CLEAR,HAZY); COLOR,URINE YELLOW (YELLOW); OCCULT BLOOD,URINE MODERATE (NEGATIVE); UROBILINOGEN,URINE NORMAL (NORMAL)
[2016-09-13] VITALS (8 sets, daily range): BP systolic 123–148; BP diastolic 64–80; PULSE 69–75; RESP 18–21; O2SAT 97–99
--- NOTE | 2016-09-13 03:46 | NUR ---
ACTIVITY: Has been up to the bathroom mostly independently tonight. Reported one diarrhea tonight, then a while later she went back to the bathroom and had large incontinent stool pt. couldn't make it to the toilet and was feeling very embarrassed. Pt. has questions regarding her condition, asking why Am I so swollen?. My stomach is better but is still swollen. Why do I have diarrhea? When Am I going to be discharge home? Can the Doctor explain what's going on with me?. Pt. is A & O with VSS. Cont. to monitor.
[2016-09-13] MEDS: Pantoprazole 40 mg ER24 Tablet PO SCH (06:56)
[2016-09-13] MEDS: Insulin LISPRO 300 Unit/3 mL Inj SUBQ SCH ×4 (07:58→22:00)
[2016-09-13] MEDS: Insulin GLARgine 100 Unit/mL Syringe SUBQ SCH ×2 (08:05→21:33)
[2016-09-13] MEDS: cefTRIAXone Inj 2,000 MG in Dextrose 5% Minibag Plus 50 ML IV SCH (08:05)
[2016-09-13] MEDS: Furosemide 10 mg/mL 4 mL Inj IVPUSH SCH ×2 (08:06→21:31)
[2016-09-13 08:08] LABS: Mean Corpuscular Hemoglobin 29.9 pg (27.0-35.0); Mean Corpuscular Volume 86.4 fL (81-100)
--- NOTE | 2016-09-13 13:51 | PCM.PNMED ---
Subjective Date of Service Sep 13, 2016 Subjective Patient was examined at bedside today. Patient denies any chest pain, shortness of breath, nausea, vomiting, diarrhea. Patient states that her abdominal pain significantly improved. Still complains of some distention and lower extremity edema Exam Vital Signs Vital Sign - Last Date Time Temp Pulse Resp B/P Pulse Ox O2 Delivery O2 Flow Rate FiO2 09/13/16 11:02 36.8 73 21 123/64 99 Room Air Intake and Output 09/12/16 09/12/16 09/13/16 Cumulative From/Thru 15:00 23:00 07:00 09/10/16 19:10 - 09/13/16 05:00 Intake Total 1000 ml 0 ml 2760 ml Output Total 900 ml Balance 1000 ml 0 ml 1860 ml Intake Oral 1000 ml 2700 ml IV Total 0 ml 60 ml Output Urine Total 900 ml # Voids 4 13 # Bowel Movements 2 9 Exam Physical Exam: GEN: Patient was awake, alert, responding appropriately to questions HEENT: PERRLA, EOMI, Neck soft supple, trachea midline, nomocephalic/atraumatic CV: +S1/S2, RRR, no murmurs auscultated Respiratory: CTAB, no wheezes, rales, rhonchi GI: +bowel sounds x4, compressible, mild TTP in the predominantly in the lower quadrants, positive abdominal distention EXT: no c/c +2 pitting edema in the lower extremities bilaterally Neuro: CN II-XII grossly intact Psych: mood and affect were appropriate IVs and Medications Medications Reviewed: Medications were reviewed in detail Medications Current Medications Ceftriaxone Sodium/Dextrose 2000 mg/Premix 50 ml @ 100 mls/hr Q24 IV; Start at 23:00; Stop 09/11/16 at 23:02; Status DC Ceftriaxone Sodium/Dextrose/ Water 50 ml @ 100 mls/hr Q24 IV Last administered on 09/13/16t 08:05; Admin Dose 100 MLS/HR; Start 09/12/16 at 08:30 Lab and Diagnostics Result Diagram: 09/13/16 0742 09/13/16 0742 X-Rays, CTs and MRIs PROCEDURE: CT ABDOMEN AND PELVIS WITHOUT CONTRAST ([id number]) INDICATIONS: abd pain, ascites TECHNIQUE: After the administration of oral contrast, 5 mm thick sections acquired from the diaphragms to the symphysis. 5 mm coronal and sagittal reformats were performed. For radiation dose reduction, the following was used: automated exposure control, adjustment of mA and/or kV according to patient size. COMPARISON: [facility], CT, CT ABD PELVIS W CON, 10/23/2015, 23:40. FINDINGS: Image quality: Excellent. ABDOMEN: Lung bases: Mild right pleural effusion. Heart size is normal. Solid organs: Liver is cirrhotic. The spleen is enlarged. Gallbladder has been removed. Pancreas is normal in size. No adrenal nodules. Both kidneys are normal in size, without hydronephrosis or nephrolithiasis. Peritoneum and bowel: Bowel loops demonstrate normal wall thickness and caliber. No air. Nodes and vessels: No retroperitoneal or mesenteric adenopathy by size criteria. Aorta and inferior vena cava are normal in size. Calcific splenic artery aneurysm, unchanged. Prominent portal venous collaterals. Miscellaneous: No ventral hernias. There is mild perihepatic and perisplenic fluid. PELVIS: Genitourinary: Bladder wall demonstrates mild anterior bladder wall thickening. Miscellaneous: No inguinal hernias or adenopathy. Mild dependent pelvic fluid. Bones: No suspicious bony lesions. No vertebral body compression fractures. IMPRESSION: 1. Mild right pleural effusion. 2. Cirrhosis with portal venous hypertension with varices. 3. Mild abdominal or pelvic fluid. Dictated by: Nicole Forbes M.D. on 09/11/2016 at 14:25 Approved by: Nicole Forbes M.D. on 09/11/2016 at 14:25 12-lead ECG Sinus rhythm rate 76 LAFB Assessment & Plan Ms. Cosme is a 61 y/o Tongan speaking female with a history of Hep C, liver cirrhosis, HTN, and DM2 on insulin, presenting to the ED c/o gradually worsening SOB, intermittent fevers and chills, with increasing abdominal girth for 1 month. Her presentation is suspicious for Bacterial Peritonitis, so she is admitted for treatment. Suspected Spontaneous Bacterial Peritonitis With patient's presentation and history, SBP is very suspicious. -- Continue the IV Ceftriaxone 2 grams Q24h that was began in the ED on 09/11. --CT abd w/o contrast: Mild right pleural effusion, Cirrhosis with portal venous hypertension with varices, Mild abdominal or pelvic fluid. -- Consult GI and would appreciate their recommendations Diarrhea -- Discontinue Contact precautions -- C. difficile culture negative -- Encourage high-fiber diet Other sources of infection -- UA negative -- Blood cultures negative 2 days -- We will continue to monitor Cirrhosis with Ascites secondary to Hep C Likely the source of her anemia and thrombocytopenia. Currently being followed at Her AST, ALT, Tbili, and Alk Phos are all mildly elevated, but is per her baseline and is likely due to this disease process Continue home spironolactone 50mg daily --Will use IV Lasix 40 mg BID to increase diuresis in the short term. Transition to oral Lasix when appropriately dry --Add Potassium supplement if K decreases. --Avoid Hepatotoxic agents Elevated Creatinine --Patient has had similarly elevated Cr in the past few hospital visits. Likely is CKD from Hepatorenal syndrome. --Cr 1.43 on admit, improved today 1.36 --Avoid nephrotoxic agents. Consider nephrology consultation if worsens. Elevated Troponin --Trop of 0.068 on admit, Likely due to her elevated Cr, -- Subsequent troponin 0.090 on 09/11/2016 and 0.094 on 09/12/2016 most likely troponin leak --EKG on admission showed NSR -- BNP pending --Will trend for evaluation -- We will continue to monitor on telemetry Type 2 Diabetes Mellitus, Insulin dependent, Uncontrolled, POA --Patient has a blood sugar of 354 in the ED --HgbA1c 6.4, last A1c in 05/08 was 8.7 -- continue Lispro high dose correctional scale with Lantus 50 units BID per home regimen Hypertension --Chronic, Stable GERD --Continue home omeprazole 10mg Bowel Regimen PRN Disposition: After discussing with GI for further workup of the patient's abdominal pain a UA was performed as it may be possible involvement. Patient 's UA was negative. Troponins have been trended and while elevated, it seems that this is potentially a troponin leak secondary to the patient's current disease process. A BNP has been ordered and if positive will consider doing an echocardiogram and consider consulting cardiology. Most likely this episode is secondary to volume overload. The patient states that the IV doses of Lasix seems to have helped her edema significantly. If patient remains stable we will consider discharging the patient for further workup as the patient is scheduled for an upper GI endoscopy on September 21. Dispo: Patient states that she is feeling improved however she denies any changes in the edema. Patient does have a endoscopy scheduled on September 21 with her client technologies analyst. Patient does have a negative balance of -240mls for I's and O's. We will continue to use Lasix IV however will need to continue to watch her kidneys as her creatinine may be worsening secondary to Lasix usage. We will continue to monitor the patient in except any recommendations from GI. VTE Prophylaxis: Sub-Q Heparin (Unfractionated) (managed per Pharmacy) VTE Mechanical Devices: Intermittant Pneumatic CD Resuscitation Status: CPR: Attempt Resuscitation Mayra Glynn DO Sep 13, 2016 13:51
--- NOTE | 2016-09-13 16:29 | NUR ---
Social Work Note: Screen Note Data& Assessment: EMR reviewed.Patient is a 61 y/o Hebrew speaking female admitted on 09/10/2016 for Ascites and Elevated Troponin . Pt is self pay and sees Ngozi Burk PA-C for primary care needs. Pt lives in [place] and is independent at baseline. Pt is currently SBA in her room. No discharge needs identified at this time. SW to continue to follow if any needs arise. Plan: Anticipated discharge home via POV when medically ready. No discharge needs identified at this time. SW to continue to follow if any needs arise. Juju Black, BEN, ACM
--- NOTE | 2016-09-13 19:24 | NUR ---
GI P: Pt continues to have diarrhea and reports she feels like she "still needs to go" when she is laying down. Discomfort is primarily in upper abdomen. I: Dr. Vegas consulted today. EGD records obtained from . C-diff results negative. E: Will continue to monitor for signs of dehydration or electrolyte imbalances. Pt is currently comfortable and understanding of plan for tomorrow.
--- NOTE | 2016-09-13 22:42 | CONS ---
[address] [address] CONSULTATION REPORT PATIENT: NILESH SPRINGER : 1955 MR#: [id number] ADMIT: 09/10/2016 JOB ID: [id number] DATE OF SERVICE: 09/13/2016 REQUESTING PROVIDER: Mayra Glynn DO REASON FOR CONSULTATION: Lower abdominal pain. HISTORY OF PRESENT ILLNESS: This is a 61-year-old female with hepatitis C and probably nonalcoholic fatty liver disease associated cirrhosis who has been experiencing challenges with lower extremity edema going on about a year now treated with diuretic therapy. In the last month or so she has had increasing abdominal discomfort which was in essence characterized by bloating and increased girth and mostly upper abdominal discomfort. This radiates to some degree to the back and is worse with food. Her lipase on admission was normal. REVIEW OF SYSTEMS: The patient when she originally checked in the emergency department had been complaining of increasing shortness of breath and had been made aware of some unknown cardiac condition that was diagnosed down in [place]. She has positive troponins here during this admission but initial EKG findings were underwhelming. She is not complaining of any chest pain or shortness of breath at present. She apparently has had some intermittent fevers and chills. The patient does have a tendency to frequent loose bowel movements. This is in essence in response to anything that she eats. The patient was commenced on ceftriaxone at admission over concerns that she might have SBP. Remainder of her review is as per HPI. ALLERGIES: No known drug allergies. MEDICATIONS: 1. Spironolactone 50 mg per day. 2. Furosemide 80 mg per day. 3. Glargine insulin. 4. Fluoxetine. 5. Omeprazole. 6. Oxycodone. PAST MEDICAL HISTORY: Hepatitis C, cirrhosis, varices, ascites, thrombocytopenia, reflux, diabetes, hypertension, prior cholecystectomy. FAMILY HISTORY: Noncontributory. SOCIAL HISTORY: No habits at present. PHYSICAL EXAMINATION: The vital signs are stable. Temperature 36.6, pulse 69, breathing 18, blood pressure 139/73, pulse ox 99% on room air. The patient was overweight with a moderate amount of stored abdominal adipose. The skin was otherwise warm and dry. Lungs clear bilaterally. Heart regular. There was evidence of edema bilaterally in the lower extremities. The patient had a mildly distended abdomen but not classic for full or tense ascites. There was mild discomfort in the epigastric region. No guarding apparent. The patient was alert, oriented, appropriate, conversational. I had to use the Modlarblister rust eradicator for the encounter. LABORATORY DATA: Bilirubin is 0.9. Creatinine is 1.36. INR was 1.02 on admission. Platelets are low at 59, anemic. Hemoglobin 8.8, hematocrit 25.4, white count is 4.4. Negative urinalysis, no sign of infection. Sodium 139, potassium 4.4, chloride 107, bicarb 20, BUN 33, glucose 109, calcium 8.1, AST 62, ALT 43, alk phos 234, troponins were all positive, albumin is 2.4, protein is 5.0, lipase on admission was normal at 48, procalcitonin level was negative. C. diff was negative. Blood cultures negative x2 days. IMAGING: CT of the abdomen and pelvis without IV contrast was reviewed. There was a mild right pleural effusion. The patient had evidence of cirrhosis with portal hypertension and varices. She had mild abdominal or pelvic fluid. There did not appear to be anything substantial. Nothing significant enough to be able to safely get a needle on for further diagnostics. I have personally reviewed the study and could not really find the bile duct. No suggestion of any biliary distention. I did not see any pancreatic masses. The patient is status post cholecystectomy. ASSESSMENT AND RECOMMENDATIONS: This is a 61-year-old female with diabetes, obesity, hepatitis C and established decompensated cirrhosis. She has presented with increasing shortness of breath and thought that it may be ascites refractory to her diuretic therapy. However, she does not have a significant amount of ascites. She does have positive troponins and an elevated BNP. Her upper abdominal pain would normally in this scenario give me significant cause for concern, but the patient's pain seems to be worsened by oral intake which would suggest it is not cardiac in nature. I have requested records from [place] to see what diagnosis they have made from a cardiac standpoint, and I understand an echo has been ordered in light of the elevated BNP and the elevated troponins. The liver test abnormalities are likely a function of her hepatitis C. She has a normal lipase and there is no suggestion of biliary obstruction at least by way of CT. Certainly, if we do not find any answers, the patient may need to be considered for an MRCP examination. In the meantime, I would recommend she continue a 2 g sodium diet and the diuretic therapy (she is on an unusual dose at present. Typically, we like to see 40 mg of Lasix for every 100 mg of spironolactone). I have requested EGD from the [facility] from apparently six months ago. Will look at all of these records and consider her for an early repeat upper endoscopy (as was originally planned to happen next month down at the ). At present I do not see an indication for the ceftriaxone. This can be discontinued. She is on a PPI which is just fine for now. MTDD
--- NOTE | 2016-09-14 05:38 | NUR ---
DIARRHEA: pt. states has been having diarrhea tonight at least 6 times. Up independently to the bathroom. Family members in for support. A & O, vss. On going care.
[2016-09-14 05:47] VITALS: BP 113/61; PULSE 66; RESP 16; O2SAT 99
[2016-09-14] MEDS: Pantoprazole 40 mg ER24 Tablet PO SCH (06:09)
[2016-09-14 06:36] LABS: Mean Corpuscular Hemoglobin 29.2 pg (27.0-35.0); Mean Corpuscular Volume 87.2 fL (81-100)
[2016-09-14] MEDS: Insulin LISPRO 300 Unit/3 mL Inj SUBQ SCH ×4 (07:40→20:56)
[2016-09-14] MEDS: Furosemide 10 mg/mL 4 mL Inj IVPUSH SCH ×2 (08:36→20:58)
[2016-09-14] MEDS: Insulin GLARgine 100 Unit/mL Syringe SUBQ SCH ×2 (08:36→20:58)
[2016-09-14] MEDS: cefTRIAXone Inj 2,000 MG in Dextrose 5% Minibag Plus 50 ML IV SCH (08:41)
[2016-09-14 10:04] VITALS: BP 116/69; PULSE 72; RESP 18; O2SAT 98
[2016-09-14 10:26] VITALS: PULSE 62
--- NOTE | 2016-09-14 13:59 | NUR ---
NUTRITION ASSESSMENT: ASSESS: 61 YO female admitted for ascites and elevated troponin. Pt is eating 25-100% of meals with a po intake avg. of 66% x 4 days. PMHx: Hep C, liver cirrhosis, HTN, DM type 2, GERD. LABS: Reviewed. BUN 34, Cr 1.36, Glu 125, Alb 2.2. MEDS: Reviewed. Lasix, spironolactone, insulin. GI: BM x 5 (09/12) Pt also reported diarrhea over night to RN. CURRENT WT: 116.5 kg. UBW 100 kg. (pt with increasing ascites) DIET: Diabetic. PO intake 25-100%, PO avg x 4 days 66%. EST. NEEDS (BMI, Liver Disease): 7009-5189 kcals (22-25 kcals/kg UBW), 80-105 g protein (1.5-2.0 g/kg IBW) NUTRITION DIAGNOSIS: 1.) Increased nutrient needs related to increased demand for nutrients for disease process as evidenced by chronic liver cirrhosis/hep C. NUTRITION INTERVENTION: 1.) Will add ensure BID to encourage adequate kcals/protein intake. MONITOR / EVAL: PO intake, labs, nutritional status. Follow per moderate nutritional risk guidelines. Addendum: 09/14/16 at [address] Will add glucerna BID rather than ensure as pt is on a diabetic diet.
--- NOTE | 2016-09-14 14:13 | PCM.PNMED ---
Subjective Date of Service Sep 14, 2016 Subjective Patient reports feeling bloated, with some bilateral upper quadrant abdominal pain and nausea, but she reports she feels better than yesterday. She reports several bouts of diarrhea overnight. She denies fevers, chills, dyspnea, coughing, wheezing. Exam Vital Signs Vital Sign - Last Date Time Temp Pulse Resp B/P Pulse Ox O2 Delivery O2 Flow Rate FiO2 09/14/16 10:26 62 09/14/16 10:04 36.7 18 116/69 98 Room Air Intake and Output 09/13/16 09/13/16 09/14/16 Cumulative From/Thru 14:59 22:59 06:59 09/10/16 19:10 - 09/14/16 05:51 Intake Total 800 ml 0 ml 3560 ml Output Total 4 ml 904 ml Balance 796 ml 0 ml 2656 ml Intake Oral 800 ml 3500 ml IV Total 0 ml 60 ml Output Urine Total 900 ml Urine/Stool Mix 4 ml 4 ml # Voids 13 # Bowel Movements 9 Exam General: Alert, Oriented, Cooperative, No Acute Distress Head: Normocephalic, atraumatic. External ears normal. Eyes: PERRLA, EOMI. Anicteric sclerae. Mouth: Mouth Normal, Mucous Membranes Moist/[place] Chest & Lungs: Bilateral mild crackles at bases Cardiovascular: Regular Rate/Rhythm, Normal S1, Normal S2, No Murmurs/Rubs/ Gallops Abdomen: Mild tenderness LUQ/RUQ, Non-distended, Obese, No masses, Decreased bowel tones, Soft Musculoskeletal: Normal Range of Motion Extremities: Bilateral lower extremity edema Neurological: Grossly Neurologically Intact, Normal Speech Lab and Diagnostics Result Diagram: 09/14/16 0555 09/14/16 0555 X-Rays, CTs and MRIs PROCEDURE: CT ABDOMEN AND PELVIS WITHOUT CONTRAST ([id number]) INDICATIONS: abd pain, ascites TECHNIQUE: After the administration of oral contrast, 5 mm thick sections acquired from the diaphragms to the symphysis. 5 mm coronal and sagittal reformats were performed. For radiation dose reduction, the following was used: automated exposure control, adjustment of mA and/or kV according to patient size. COMPARISON: [facility], CT, CT ABD PELVIS W CON, 10/23/2015, 23:40. FINDINGS: Image quality: Excellent. ABDOMEN: Lung bases: Mild right pleural effusion. Heart size is normal. Solid organs: Liver is cirrhotic. The spleen is enlarged. Gallbladder has been removed. Pancreas is normal in size. No adrenal nodules. Both kidneys are normal in size, without hydronephrosis or nephrolithiasis. Peritoneum and bowel: Bowel loops demonstrate normal wall thickness and caliber. No air. Nodes and vessels: No retroperitoneal or mesenteric adenopathy by size criteria. Aorta and inferior vena cava are normal in size. Calcific splenic artery aneurysm, unchanged. Prominent portal venous collaterals. Miscellaneous: No ventral hernias. There is mild perihepatic and perisplenic fluid. PELVIS: Genitourinary: Bladder wall demonstrates mild anterior bladder wall thickening. Miscellaneous: No inguinal hernias or adenopathy. Mild dependent pelvic fluid. Bones: No suspicious bony lesions. No vertebral body compression fractures. IMPRESSION: 1. Mild right pleural effusion. 2. Cirrhosis with portal venous hypertension with varices. 3. Mild abdominal or pelvic fluid. Dictated by: Nicole Forbes M.D. on 09/11/2016 at 14:25 Approved by: Nicole Forbes M.D. on 09/11/2016 at 14:25 12-lead ECG Sinus rhythm rate 76 LAFB Assessment & Plan Ms. Cosme is a 61 y/o Peruvian speaking female with a history of Hep C, liver cirrhosis, HTN, and DM2 on insulin who presented with gradually worsening SOB, intermittent fevers and chills, with increasing abdominal girth for 1 month. Abdominal discomfort, acute. - Pt presented with increasing abdominal girth and upper bilateral abdominal discomfort. Improving at this time. CT abd/pelvis showed cirrhosis with portal venous hypertension with varices, with mild perihepatic and perisplenic fluid. Pt has no fever or leukocytosis, procalcitonin was low, and there is minimal to no ascites, so spontaneous bacterial peritonitis is unlikely. There was originally concern for atypical presentation for [place] with elevated troponins, but EKG was negative and troponins appear stable. Echocardiogram pending. - Echocardiogram pending - Will schedule upper and lower endoscopy tomorrow - Clear fluids today, NPO after 9 AM tomorrow. Start Golyely. - Consider MRCP if further workup is negative. - Continue Pantoprazole 40 mg daily Shortness of breath, acute. - Unlikely due to ascites as she does not have a significant amount of ascites. Given her positive troponins, elevated BNP, and upper abdominal discomfort, there may be a cardiac component to her symptoms. However her pain is worsened by oral intake, which makes this less likely. - Echocardiogram pending Diarrhea - Pt has been having multiple episodes of diarrhea daily. C. diff negative. Considering her history, the combination of portal hypertension from the cirrhosis and chronic inflammation from hepatitis C, a mesenteric vein thrombosis may be a possible cause of her diarrhea. 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 T bili was 1.5 on admission but now normalized. LFTs and alk phos are elevated chronically. - Encourage high-fiber diet - Will be proceeding with colonoscopy Cirrhosis with Ascites secondary to Hep C Likely the source of her pancytopenia. Currently being followed at [facility]. Last EGD was 12/30/15 which found mild portal gastropathy and multiple large Grade II varices in distal third of esophagus; 4 ligation bands were applied and pt was told to follow up for repeat EGD in 4 weeks. However, she has not followed up since then. Her AST, ALT, Tbili, and Alk Phos are all mildly elevated, but is her baseline, likely secondary to Hep C. - Continue diuretic therapy. Typically, we like to see 40 mg of Lasix for every 100 mg of spironolactone - Recommend she continue a 2 g sodium diet - Avoid hepatotoxic agents VTE Prophylaxis: Sub-Q Heparin (Unfractionated) (managed per Pharmacy) VTE Mechanical Devices: Intermittant Pneumatic CD Resuscitation Status: CPR: Attempt Resuscitation Attending Statement Patient seen and examined. Agree with assessment and plan as described by Dr Nevarez. Patient stable. No clear explanation for upper abd pain after eating. Has hx of varices and banding. Diarrhea continues. Prior cholectystectomy. Wonder about the possibilty of a choleretic diarrhea. EGD/ colon with anesthesia support for tomorrow afternoon. Elliott Nevarez Sep 14, 2016 14:13 Man Vegas MD Sep 14, 2016 22:08
[2016-09-14] MEDS ORDERED: PEG/Electrolytes 4,000 mL Solution PO ONE (14:15)
--- NOTE | 2016-09-14 15:21 | DRSVH ---
[facility] [address] [place] [address] Echocardiogram Report Name: NILESH SPRINGER Study Date: 09/14/2016 Height: 63 in Hospital Exam Location: [facility] Weight: 257 lb Gender: Female BSA: 2.2 m2 : 1955 Age: 61 yrs BP: 113/61 mmHg Reason For Study: Elevated Troponin and BNP Ordering Physician: Performed By: Carlota Tillman Referring Physician: Edith Burk Interpretation Summary 1. Normal left ventricular size, wall thickness and systolic function with an estimated EF of 60-65% 2. Normal right ventricular size and systolic function. The estimated RVSP is 47 mm Hg. 3. Although not all valves were optimally visualized, there is no evidence for significant valvular pathology There is no old study for comparison Procedure: A two-dimensional transthoracic echocardiogram with color flow and Doppler was performed. The study quality was technically adequate. There is no prior echocardiogram noted for this patient. The patient was in normal sinus rhythm during the exam. Left Ventricle: The left ventricle is normal in size. There is normal left ventricular wall thickness. Mildly elevated outflow tract velocities. The ejection fraction is estimated to be 60-65%. No obvious wall motion abnormalities. Assessment of diastolic parameters suggests a pseudonormalization pattern, consistent with elevated filling pressures. Right Ventricle: The right ventricle is normal in size and function. Atria: Both atria are normal in size. No obvious color doppler evidence for an ASD. Mitral Valve: The mitral valve is normal in structure and function. There is mild mitral regurgitation. Aortic Valve: The aortic valve is not well visualized. The aortic valve is grossly normal. In the views where the valve is visualized, it appears to open well. No aortic regurgitation is present. Tricuspid Valve: The tricuspid valve is not well visualized, but is grossly normal. There is mild tricuspid regurgitation. The right ventricular systolic pressure is estimated at 47 mmHg assuming a right atrial pressure of 8 mm Hg. Pulmonic Valve: The pulmonic valve is not well visualized. There is a trace or physiologic amount of pulmonic regurgitation. Great Vessels: The aortic root is normal size. The ascending aorta is normal in size. The aortic arch is normal in size. The IVC is of normal diameter and collapses less than 50% with a sniff. This suggests a right atrial pressure of 8 mm Hg. Pericardium/ Pleura There is no pericardial effusion. MMode/2D Measurements & Calculations LVIDd: 5.1 cm RA long axis LVOT diam: 2.2 cm LVIDs: 3.9 cm LA A2 area: 18.5 cm AoV Opening FS: 23.5 % LA A4 area: 22.6 cm RA area EPSS: 0.66 cm LA length (vol) Ao root diam IVSd: 0.87 cm : 17.5 cm LVPWd: 0.93 cm LA vol: 58.3 ml RA vol asc Aorta Diam LA vol index : 47.8 ml RA Ao Arch Diam (Prox : 22.2 mm2 Trans): 2.7 cm IVC diam: 2.3 cm LV bonds. diameter/BSA LV sys. diameter/BSA RVD1 (basal) (cm/m^2): 2.4 (cm/m^2): 1.8 Doppler Measurements & Calculations Ao V2 max MV E max joe MV E/A: 1.3 TR max joe : 166.5 cm/sec : 139.4 cm/sec Med Peak E' Joe : 312.8 cm/sec Ao max PG MV A max joe TR max PG : 11.1 mmHg : 105.1 cm/sec E/E' med: 18.5 : 39.1 mmHg Ao mean PG MV P1/2t: 90.4 msec Lat Peak E' Joe PA V2 max : 112.5 cm/sec LVOT Max Joe MVA(VTI): 2.7 cm2 E/E' lat: 15.6 PA mean PG : 124.8 cm/sec E/e' average: 17.0 Pulm A Revs Dur PA Accel Time ARIELLA(I,D): 2.7 cm : 0.18 sec sev ratio MV A dur: 0.14 sec MV V2 mean MV P1/2t max joe Ao V2 mean LV V1 max PG : 86.7 cm/sec : 116.3 cm/sec MV mean PG MVA(P1/2t): 2.4 cm2 Ao V2 VTI: 42.6 cm LV V1 VTI ARIELLA(V,D): 2.8 cm2 : 30.7 cm MV V2 VTI MV dec time : 0.30 sec PA V2 mean ARIELLA indexed to BSA Pulm A Revs Dur - MV A : 80.0 cm/sec (cm^2/m^2): 1.3 Dur: -0.02 msec Reading Physician:12:11 PM
[2016-09-14 15:39] VITALS: BP 152/72; PULSE 73; RESP 18; O2SAT 100
--- NOTE | 2016-09-14 19:34 | PCM.PNMED ---
Subjective Date of Service Sep 14, 2016 Subjective Patient was seen and examined today. The patient now reports that her abdominal pain is in the epigastric and upper quadrant areas. Patient states that the pain in the lower quadrants which was her main source of pain has improved significantly. The patient states that her edema seems to be improving however she states that her pain is worse with eating. Patient denies any chest pain, shortness of breath, vomiting Exam Vital Signs Vital Sign - Last Date Time Temp Pulse Resp B/P Pulse Ox O2 Delivery O2 Flow Rate FiO2 09/14/16 15:39 36.5 73 18 152/72 100 Room Air Intake and Output 09/13/16 09/13/16 09/14/16 Cumulative From/Thru 15:00 23:00 07:00 09/10/16 19:10 - 09/14/16 05:51 Intake Total 800 ml 0 ml 3560 ml Output Total 4 ml 904 ml Balance 796 ml 0 ml 2656 ml Intake Oral 800 ml 3500 ml IV Total 0 ml 60 ml Output Urine Total 900 ml Urine/Stool Mix 4 ml 4 ml # Voids 13 # Bowel Movements 9 Exam Physical Exam: GEN: Patient was awake, alert, responding appropriately to questions HEENT: PERRLA, EOMI, Neck soft supple, trachea midline, nomocephalic/atraumatic CV: +S1/S2, RRR, no murmurs auscultated Respiratory: CTAB, no wheezes, rales, rhonchi GI: +bowel sounds x4, compressible, mild TTP in the predominantly in the upper quadrants, positive abdominal distention EXT: no c/c +2 pitting edema in the lower extremities bilaterally, improving Neuro: CN II-XII grossly intact Psych: mood and affect were appropriate IVs and Medications Medications Reviewed: Medications were reviewed in detail Lab and Diagnostics Result Diagram: 09/14/1655409/14/16554 X-Rays, CTs and MRIs PROCEDURE: CT ABDOMEN AND PELVIS WITHOUT CONTRAST ([id number]) INDICATIONS: abd pain, ascites TECHNIQUE: After the administration of oral contrast, 5 mm thick sections acquired from the diaphragms to the symphysis. 5 mm coronal and sagittal reformats were performed. For radiation dose reduction, the following was used: automated exposure control, adjustment of mA and/or kV according to patient size. COMPARISON: [facility], CT, CT ABD PELVIS W CON, 10/23/2015, 23:40. FINDINGS: Image quality: Excellent. ABDOMEN: Lung bases: Mild right pleural effusion. Heart size is normal. Solid organs: Liver is cirrhotic. The spleen is enlarged. Gallbladder has been removed. Pancreas is normal in size. No adrenal nodules. Both kidneys are normal in size, without hydronephrosis or nephrolithiasis. Peritoneum and bowel: Bowel loops demonstrate normal wall thickness and caliber. No air. Nodes and vessels: No retroperitoneal or mesenteric adenopathy by size criteria. Aorta and inferior vena cava are normal in size. Calcific splenic artery aneurysm, unchanged. Prominent portal venous collaterals. Miscellaneous: No ventral hernias. There is mild perihepatic and perisplenic fluid. PELVIS: Genitourinary: Bladder wall demonstrates mild anterior bladder wall thickening. Miscellaneous: No inguinal hernias or adenopathy. Mild dependent pelvic fluid. Bones: No suspicious bony lesions. No vertebral body compression fractures. IMPRESSION: 1. Mild right pleural effusion. 2. Cirrhosis with portal venous hypertension with varices. 3. Mild abdominal or pelvic fluid. Dictated by: Nicole Forbes M.D. on 09/11/2016 at 14:25 Approved by: Nicole Forbes M.D. on 09/11/2016 at 14:25 12-lead ECG Sinus rhythm rate 76 LAFB Cardiac Echo Impressions Interpretation Summary 1. Normal left ventricular size, wall thickness and systolic function with an estimated EF of 60-65% 2. Normal right ventricular size and systolic function. The estimated RVSP is 47 mm Hg. 3. Although not all valves were optimally visualized, there is no evidence for significant valvular pathology There is no old study for comparison Procedure: A two-dimensional transthoracic echocardiogram with color flow and Doppler was performed. The study quality was technically adequate. There is no prior echocardiogram noted for this patient. The patient was in normal sinus rhythm during the exam. Left Ventricle: The left ventricle is normal in size. There is normal left ventricular wall thickness. Mildly elevated outflow tract velocities. The ejection fraction is estimated to be 60-65%. No obvious wall motion abnormalities. Assessment of diastolic parameters suggests a pseudonormalization pattern, consistent with elevated filling pressures. Right Ventricle: The right ventricle is normal in size and function. Atria: Both atria are normal in size. No obvious color doppler evidence for an ASD. Mitral Valve: The mitral valve is normal in structure and function. There is mild mitral regurgitation. Aortic Valve: The aortic valve is not well visualized. The aortic valve is grossly normal. In the views where the valve is visualized, it appears to open well. No aortic regurgitation is present. Tricuspid Valve: The tricuspid valve is not well visualized, but is grossly normal. There is mild tricuspid regurgitation. The right ventricular systolic pressure is estimated at 47 mmHg assuming a right atrial pressure of 8 mm Hg. Pulmonic Valve: The pulmonic valve is not well visualized. There is a trace or physiologic amount of pulmonic regurgitation. Great Vessels: The aortic root is normal size. The ascending aorta is normal in size. The aortic arch is normal in size. The IVC is of normal diameter and collapses less than 50% with a sniff. This suggests a right atrial pressure of 8 mm Hg. Pericardium/ Pleura There is no pericardial effusion. MMode/2D Measurements & Calculations LVIDd: 5.1 cm RA long axis LVOT diam: 2.2 cm LVIDs: 3.9 cm LA A2 area: 18.5 cm AoV Opening FS: 23.5 % LA A4 area: 22.6 cm RA area EPSS: 0.66 cm LA length (vol) Ao root diam IVSd: 0.87 cm : 17.5 cm LVPWd: 0.93 cm LA vol: 58.3 ml RA vol asc Aorta Diam LA vol index : 47.8 ml RA Ao Arch Diam (Prox : 22.2 mm2 Trans): 2.7 cm IVC diam: 2.3 cm LV bonds. diameter/BSA LV sys. diameter/BSA RVD1 (basal) (cm/m^2): 2.4 (cm/m^2): 1.8 Doppler Measurements & Calculations Ao V2 max MV E max joe MV E/A: 1.3 TR max joe : 166.5 cm/sec : 139.4 cm/sec Med Peak E' Joe : 312.8 cm/sec Ao max PG MV A max joe TR max PG : 11.1 mmHg : 105.1 cm/sec E/E' med: 18.5 : 39.1 mmHg Ao mean PG MV P1/2t: 90.4 msec Lat Peak E' Joe PA V2 max : 112.5 cm/sec LVOT Max Joe MVA(VTI): 2.7 cm2 E/E' lat: 15.6 PA mean PG : 124.8 cm/sec E/e' average: 17.0 Pulm A Revs Dur PA Accel Time ARIELLA(I,D): 2.7 cm : 0.18 sec sev ratio MV A dur: 0.14 sec MV V2 mean MV P1/2t max joe Ao V2 mean LV V1 max PG : 86.7 cm/sec : 116.3 cm/sec MV mean PG MVA(P1/2t): 2.4 cm2 Ao V2 VTI: 42.6 cm LV V1 VTI ARIELLA(V,D): 2.8 cm2 : 30.7 cm MV V2 VTI MV dec time : 0.30 sec PA V2 mean ARIELLA indexed to BSA Pulm A Revs Dur - MV A : 80.0 cm/sec (cm^2/m^2): 1.3 Dur: -0.02 msec Reading Physician:12:11 PM Assessment & Plan Ms. RatliffgaMane is a 61 y/o Thai speaking female with a history of Hep C, liver cirrhosis, HTN, and DM2 on insulin, presenting to the ED c/o gradually worsening SOB, intermittent fevers and chills, with increasing abdominal girth for 1 month. Her presentation is suspicious for Bacterial Peritonitis, so she is admitted for treatment. Suspected Spontaneous Bacterial Peritonitis With patient's presentation and history, SBP is very suspicious. -- Continue the IV Ceftriaxone 2 grams Q24h that was began in the ED on 09/11. --CT abd w/o contrast: Mild right pleural effusion, Cirrhosis with portal venous hypertension with varices, Mild abdominal or pelvic fluid. -- GI following Diarrhea -- Discontinue Contact precautions -- C. difficile culture negative -- Encourage high-fiber diet Other sources of infection -- UA negative -- Blood cultures negative 2 days -- We will continue to monitor Cirrhosis with Ascites secondary to Hep C Likely the source of her anemia and thrombocytopenia. Currently being followed at Her AST, ALT, Tbili, and Alk Phos are all mildly elevated, but is per her baseline and is likely due to this disease process Continue home spironolactone 50mg daily --Will use IV Lasix 40 mg BID to increase diuresis in the short term. Transition to oral Lasix when appropriately dry --Add Potassium supplement if K decreases. --Avoid Hepatotoxic agents Elevated Creatinine --Patient has had similarly elevated Cr in the past few hospital visits. Likely is CKD from Hepatorenal syndrome. --Cr 1.43 on admit, improved today 1.36 --Avoid nephrotoxic agents. Consider nephrology consultation if worsens. Elevated Troponin --Trop of 0.068 on admit, Likely due to her elevated Cr, -- Subsequent troponin 0.090 on 09/11/2016 and 0.094 on 09/12/2016 most likely troponin leak --EKG on admission showed NSR -- BNP pending --Will trend for evaluation -- We will continue to monitor on telemetry -- Echo shows normal EF of 60-65% no signs of valvular pathology Type 2 Diabetes Mellitus, Insulin dependent, Uncontrolled, POA --Patient has a blood sugar of 354 in the ED --HgbA1c 6.4, last A1c in 05/08 was 8.7 -- continue Lispro high dose correctional scale with Lantus 50 units BID per home regimen Hypertension --Chronic, Stable GERD --Continue home omeprazole 10mg Bowel Regimen PRN Disposition: Patient continues to have epigastric pain. GI has been consulted and are recommending a endoscopy tomorrow. The patient had an echo which did not show any valvular pathology. The patient does seem to be improving with the usage of Lasix daily IV. We will continue to monitor the patient and have further information after endoscopy. VTE Prophylaxis: Sub-Q Heparin (Unfractionated) (managed per Pharmacy) VTE Mechanical Devices: Intermittant Pneumatic CD Resuscitation Status: CPR: Attempt Resuscitation Mayra Glynn DO Sep 14, 2016 19:34
--- NOTE | 2016-09-14 19:52 | NUR ---
Abdominal distention. P: Pt had decreased diarrhea on day shift but worsening abdominal distention and discomfort. I: Plan for colonoscopy in the morning. Bulk Plant Supervisor used to explain procedure and prep. Pt understanding. E: Echo results negative this morning. Plan to move forward with colonoscopy 09/15. Colyte prep started.
[2016-09-14 20:00] VITALS: PULSE 69
[2016-09-14 21:32] VITALS: BP 164/77; PULSE 73; RESP 18; O2SAT 95
[2016-09-15] VITALS (9 sets, daily range): BP systolic 119–177; BP diastolic 57–83; PULSE 67–79; RESP 14–18; O2SAT 97–100
--- NOTE | 2016-09-15 04:20 | NUR ---
Golyte prep Pt finished 2L of Golyte prep at midnight and will start the next 2L at 0600. Pt reporting BMs are near clear in color. Pt is on clear liquids. Denies pain/nausea. Pt is SL and on RA, denies sob at rest. Pt has been up indep to BR. Family helping in room.
[2016-09-15 06:49] LABS: Mean Corpuscular Hemoglobin 29.3 pg (27.0-35.0); Mean Corpuscular Volume 86.5 fL (81-100)
[2016-09-15 07:54] LABS: TROPONIN T 0.104 ug/L (0.0-0.011)
[2016-09-15] MEDS: Insulin GLARgine 100 Unit/mL Syringe SUBQ SCH ×2 (08:00→22:56)
[2016-09-15] MEDS: Insulin LISPRO 300 Unit/3 mL Inj SUBQ SCH ×4 (08:00→22:00)
[2016-09-15] MEDS: cefTRIAXone Inj 2,000 MG in Dextrose 5% Minibag Plus 50 ML IV SCH (08:03)
[2016-09-15] MEDS: Pantoprazole 40 mg ER24 Tablet PO SCH (08:03)
[2016-09-15] MEDS: Furosemide 10 mg/mL 4 mL Inj IVPUSH SCH ×3 (08:03→22:53)
--- NOTE | 2016-09-15 08:31 | NUR ---
Blood sugar/Troponin/Elevated SBP. Blood sugar 100 this AM. Doctor at bed side. held lantus patient strict NPO at 0900AM r/t Colonoscopy. Doctor aware. Lab called r/t Troponin lab results. Doctor aware. Elevated Blood pressure and patient received Scheduled Bp medications as ordered, Doctor aware and at bed side.
[2016-09-15] MEDS ORDERED: Propofol 10,000 mCg/mL 20 mL Inj ONE (11:59)
[2016-09-15] MEDS ORDERED: Lidocaine PF 1% 30 mL Inj ONE (11:59)
--- NOTE | 2016-09-15 12:32 | NUR ---
To Endo patient left OSC [id number] to endo lab. report given to nurse. Ar sugar 108
[2016-09-15] MEDS ORDERED: Lactated Ringer's 1,000 ML IV SCH ×2 (12:46→13:00)
[2016-09-15] MEDS ORDERED: MetoCLOpramide 5 mg/mL 2 mL Inj IVPUSH PRN (12:50)
[2016-09-15] MEDS ORDERED: Ondansetron 2 mg/mL 2 mL Inj IVPUSH PRN (12:50)
--- NOTE | 2016-09-15 13:00 | PCM.HPANE ---
Patient Data Date of Service: Sep 15, 2016 Surgeon Admitting Provider:Kenya Dominguez DO Attending Provider:Kenya Dominguez DO Primary Care Physician:Ngozi Burk Pa-C Other Provider: Reason for Visit Acites, Elevated Troponin, Diarrhea, Abd Pain ACITES, ELEVATED TROPONIN Ht/WT & BMI Height (Feet): 5 Height (Inches): 3.00 Weight (Kilograms): 116.500 Body Mass Index 45.47 Allergies Coded Allergies: No Known Allergies (Verified Allergy, Unknown, 09/10/16) Past Anesthesia History Anesthesia History: Positive for:: Anesthesia Reactions (Anxious when recovered from anesthesia) Diabetes History Hx Diabetes?: Yes (On Lantus) Current Bedside Blood Glucose: 108 MRSA MRSA: No Medications Reported Medications Spironolactone 50 Mg [id number] Mg PO DAILY 09/11/16 Furosemide 80 Mg Tab80 Mg PO DAILY 09/11/16 Insulin Glargine (Lantus U100 Insulin Vial)100 Unit/Ml Vial50 Unit SUBQ BID 01/27/15 Discontinued Reported Medications Furosemide 20 Mg Tab20 Mg PO DAILY 09/11/16 Omeprazole 10 Mg Capsule.dr10 Mg PO MORNING 05/19/16 Fluoxetine 20 Mg Wkjwxs81 Mg PO DAILY 05/19/16 Oxycodone (Roxicodone)5 Mg Tablet5 Mg PO DAILY PRN Severe pain 05/19/16 Discontinued Scripts Furosemide (Lasix)20 Mg Wztfqw63 Mg PO MORNING #30 TABLET Take 2 of your 20 mg tablets every morning. Prov:Pradeep Valdes MD 05/23/16 Spironolactone 100 Mg Aotgsi29 Mg PO DAILY #30 TABLET Cut your 100 mg pills in half. Take just half a pill a day. Prov:Pradeep Valdes MD 05/23/16 History History of ENT Problems?: Yes HEENT History: Positive for:: Cataracts Denies:: Dysphagia Sinus Problem Hx of Heart Problems?: Yes Cardiovascular History: Positive for:: Edema (Always, on Lasix) Heart Murmur Hypertension Denies:: Cardiac Surgery Chest Pain Congestive Heart Failure Irregular Heartbeat Pacemaker Thrombophlebitis Hx of Respiratory Problem?: Yes Respiratory History: Positive for:: Pneumonia Denies:: Asthma COPD Chest Surgery Dyspnea Emphysema Hemoptysis Tuberculosis Hx Neurologic Problems?: Yes Neurological History: Positive for:: Dizziness Headaches Denies:: Alzheimer's Disease CVA Dementia Parkinson's Disease Seizures Hx of GI Problems?: Yes Gastrointestinal History: Positive for:: Diverticulitis Gastroesphageal Reflux Heartburn Hepatitis (Hepatitis C according to her doctor) Rectal Bleeding (07/2014) Denies:: Gastrointestinal Bleeding Hiatal Hernia Hx of Problems?: Yes Genitourinary History: Positive for:: Urinary Tract Infection (Frequent) Denies:: HX of Hemodialysis Kidney Stones HX of Peritoneal Dialysis: No Female Hx: Denies:: Currently Endometriosis Pelvic Inflammatory Problems with Breasts? Hx Musculoskeletal Problems?: Yes Musculoskeletal History: Positive for:: Back Injury Denies:: Joint Replacement Musculoskeletal Trauma Hx of Psycho/Social Problems?: Yes Psycho Social History: Positive for:: Anxiety Hx Depression Denies:: Bipolar Disorder Suicide Attempt Hx Surgeries?: Yes (Cholecystectomy) Hx Any Other Health Problems?: Yes Other History: Positive for:: Hospitalization (Pneumonia) Denies:: Cancer Thyroid Disease History Blood Transfusions: Positive for:: Accept Blood Products? Denies:: Blood Transfuse Reaction Blood Transfusions Hx Diabetes: Yes (On Lantus)Bedside Blood Glucose: 108 Hx Alcohol Use: NoHx Substance Use: No Smoking Status: Never Smoker Have You Smoked inLast 12 mo: No Stop/Bang Treated for Sleep Apnea?: No Do You Have a CPAP Machine?: No S-Snoring: Do You Snore Loudly: No T-Tired: feel tired, fatigued: Yes O-Obsered: Observed not breath: No P-Blood Pressure: treated: No B- Body Mass Index > 35 kg/m2: Yes A- Age over 50: Yes N- Neck Large Circumference: Yes G- Gender Male: No KIMBERLEE Total Score: 4 KIMBERLEE Risk Assessment: High Risk, =/>3 Yes KIMBERLEE Category 2: Yes Risk Assessment Category Category 1A: Patient has history of documented sleep apnea, and HAS NOT received any narcotic, sedative or anesthesia administration during this stay. Category 1B: Patient has history of documented sleep apnea, and HAS received any narcotic , sedative or anesthesia administration during this stay Category 2: Patient has SUSPECTED Obstructive Sleep Apnea, and HAS received any narcotic , sedative or anesthesia administration during this stay. Category 3: Patient has SUSPECTED Obstructive Sleep Apnea and HAS NOT received narcotic, sedative or anesthesia administration during this stay. Category 4: Outpatient in Procedural Areas with known sleep apnea or who screen positive for High Risk via the STOP/BANG questionnaire. Exam Exam Vital Signs Vital Signs Date Time Temp Pulse Resp B/P Pulse Ox O2 Delivery O2 Flow Rate FiO2 09/15/16 07:30 36.7 79 15 177/83 99 Room Air 09/15/16 04:55 36.7 70 16 136/68 99 Room Air General Appearance: Alert, Oriented X3, Cooperative HEENT/AIRWAY: MP 3, Neck Movement (OK), Mouth Opening (Wide, large tonue) Lungs: Clear to Auscultation, Normal Air Movement Heart: Regular Rate/Rhythm, Normal S1, Normal S2 Meds/Labs/Diagnostics Admission Meds Current Medications Polyethylene Glycol/ Electrolytes (Colyte) 4,000 ml ONCE ONCE PO Last administered on 09/14/16t 16:27; Start 09/14/16 at 14:15; Stop 09/14/16 at 14:35 ; Status DC Bedside Blood Glucose: 108 Labs Test 09/10/16 19:55 09/11/16 01:06 09/11/16 01:13 09/11/16 06:12 Lipase 48U/L (13-60) Procalcitonin < 0.05ng/mL (See Comment) Hold Mcdonough Top Tube Received (Received) Lactic Acid Level 1.1mmol/L (0.4-2.0) Hemoglobin A1c 6.4% (4.8-5.6) Neutrophils (%) (Auto) 53.3% (40-74) Lymphocytes (%) (Auto) 28.5% (14-46) Monocytes (%) (Auto) 9.0% (4-12) Eosinophils (%) (Auto) 8.8% (0-5) Basophils (%) (Auto) 0.2% (0-3) Prothrombin Time 11.4sec (8.1-12.5) Prothromb Time International Ratio 1.06ratio Magnesium Level 1.9mg/dL (1.6-2.6) Test 09/12/16 18:35 09/13/16 14:23 09/15/16 06:00 Urine Color Yellow (YELLOW) Urine Appearance Clear (CLEAR,HAZY) Urine pH 6.0 (5.0-8.0) Urine Specific Coral 1.010 (1.003-1.035) Urine Protein 30mg/dL (NEG,TRACE) Urine Glucose (UA) Negativemg/dL (NEGATIVE) Urine Ketones Negativemg/dL (NEGATIVE) Urine Occult Blood Moderate (NEGATIVE) Urine Nitrite Negative (NEGATIVE) Urine Bilirubin Negative (NEGATIVE) Urine Urobilinogen Normalmg/dL (NORMAL) Urine Leukocyte Esterase Negative (NEGATIVE) Urine RBC 0-2/hpf (0-2) Urine WBC 0-5/hpf (0-5) Urine Epithelial Cells Few/hpf (NONE-MOD) Urine Crystals None seen (NONE SEEN) Urine Bacteria Few/hpf (NONE-FEW) Urine Hyaline Casts Rare/lpf (NONE) Urine Granular Casts None seen (NONE SEEN) Urine Waxy Casts None seen (NONE SEEN) Urine Red Blood Cell Casts None seen (NONE SEEN) Urine White Blood Cell Casts None seen (NONE SEEN) Urine Mucus None seen (None Seen) Urine Trichomonas None seen (NONE SEEN) Urine Yeast None (NONE SEEN) Urinalysis Comment None Urine Culture Reflexed Not indicated Pro-B-Type Natriuretic Peptide 388.2pg/mL (0-287) White Blood Count 3.5th/mm3 (3.8-10.1) Red Blood Count 2.97mil/mm3 (3.90-5.20) Hemoglobin 8.7g/dL (12.0-15.6) Hematocrit 25.7% (35.0-46.0) Mean Corpuscular Volume 86.5fL (81-100) Mean Corpuscular Hemoglobin 29.3pg (27.0-35.0) Mean Corpuscular Hemoglobin Concent 33.9% (32.0-37.0) Red Cell Distribution Width 13.8% (12.3-15.4) Platelet Count 64bil/L (150-400) Sodium Level 139mEq/L (134-144) Potassium Level 4.4mEq/L (3.5-5.2) Chloride Level 107mEq/L (97-108) Carbon Dioxide Level 21mmol/L (18-29) Blood Urea Nitrogen 32mg/dL (8-27) Creatinine 1.24mg/dL (0.57-1.00) Estimat Glomerular Filtration Rate 63mL/min (>59) Glucose Level 107mg/dL (60-99) Calcium Level 7.9mg/dL (8.5-10.1) Total Bilirubin 0.8mg/dL (0.0-1.2) Aspartate Amino Transf (AST/SGOT) 74U/L (0-50) Alanine Aminotransferase (ALT/SGPT) 47U/L (0-32) Alkaline Phosphatase 232U/L (25-165) Troponin T 0.104ug/L (0.0-0.011) Total Protein 4.9g/dL (6.4-8.4) Albumin 2.4g/dL (3.4-5.0) Plan Impression Patient chart reviewed, patient interviewed and anesthestic plan with risks, benefits, and alternatives discussed, and informed consent obtained. NPO Status: clears > 3 hours, prep prior to that ASA Physical Status: ASA3 Severe Disease Anesthetic Plan: MAC Bene/Risks/Altern/Consents: Yes HP Complete Prior to Induction: Yes Perfecto Hendrix MD Sep 15, 2016 12:46
[2016-09-15] MEDS: Lactated Ringer's 1,000 ML IV ONE ×2 (13:10→13:54)
--- NOTE | 2016-09-15 14:07 | PCM.ANEP1 ---
Post Anesthesia Phase 1 PACU Phase 1 Assessment Date of Service: Sep 15, 2016 Vital Signs Vital Signs Date Time Temp Pulse Resp B/P Pulse Ox O2 Delivery O2 Flow Rate FiO2 09/15/16 14:01 67 125/57 100 Room Air 09/15/16 12:48 36.5 76 16 167/67 98 Room Air 09/15/16 07:30 36.7 79 15 177/83 99 Room Air Anesthetic Administered: MAC Level of Alertness: Sleepy, easy to arouse RAINEY's with Equal Strength: Yes Pain: No Nausea or Vomiting: No Oxygen Delivery: Room Air Lungs: Normal Air Movement Perfecto Hendrix MD Sep 15, 2016 14:07
--- NOTE | 2016-09-15 14:37 | NUR ---
Back from Endo patient is back from Endo 1440.bag machine helper at bed side. Report received from Endo. patient denies pain or discomfort. per bag machine helper patient states," i feel weak and want to rest." will continue to monitor.
--- NOTE | 2016-09-15 14:58 | ENDO ---
[address] [address] ENDOSCOPY PROCEDURE PATIENT: NILESH SPRINGER : 1955 MR#: [id number] ADMIT: 09/10/2016 JOB ID: [id number] DATE: 09/15/2016 PROCEDURE: Esophagogastroduodenoscopy and colonoscopy. INDICATIONS: This is a 61-year-old female with cirrhosis who is experiencing epigastric discomfort, a little better for whatever reason spontaneously today. She has also been having some diarrhea. EGD and colonoscopy are thus pursued. EQUIPMENT: GIF H 180 J and a PCF H 180 AL. SEDATION: Monitored anesthesia as provided by Perfecto Hendrix MD. COMPLICATIONS: None identified. PROCEDURE INFORMATION: After the risks and benefits were explained, written and verbal informed consent was obtained. The patient was brought into the endoscopy suite and placed into the left lateral decubitus position. Sedation was achieved as above. The scope was introduced into the mouth through the bite block and advanced to the second portion of the duodenum. The scope was slowly withdrawn to carefully examine the mucosa for any defects or lesions. Retroflexed views were accomplished in the stomach, the stomach was decompressed, and the scope removed from the patient, who tolerated the procedure well. The patient was then turned around. A digital rectal examination accomplished. Apart from some mild internal hemorrhoids, no other significant pathology was appreciated. The scope was introduced into the rectum and advanced under direct visualization to the level of the cecum, as identified by the appendiceal orifice and ileocecal valve. The scope was slowly withdrawn to carefully examine the mucosa for any defects or lesions. Multiple direct views were made through the dentate line for exclusion of pathology. The colon was decompressed and the scope removed from the patient, who tolerated the procedure well. FINDINGS: 1. Duodenum: No mucosal pathology identified from the bulb through to the second portion. 2. Stomach: The patient had a diffuse portal hypertensive gastropathy. No ulcers. No mass lesions. No outlet obstruction. Retroflexed views of the LES did not reveal any suggestion of gastric varices. 3. Esophagus: The patient had evidence of grade 2 distal esophageal varices without stigmata of any recent bleeding and no high-risk areas that suggested need for further banding. 4. Colon: The patient had no mass lesions. No significant polyps identified throughout. There were some scattered diverticula in the left colon. Interestingly the patient had an obviously edematous appearing mucosa all throughout the colon. No biopsies were acquired in that the patient's platelets were running in the low 60s. There was some scant amount of fresh blood associated with a diverticulum in the proximal left colon around 45 cm from the anal verge. ENDOSCOPIC DIAGNOSES: 1. Portal hypertensive gastropathy. 2. Grade 2 distal esophageal varices without stigmata or high risk morphology. 3. Mild colonic diverticulosis. 4. Mild hemorrhoids. 5. Diffuse colonic edema. RECOMMENDATIONS: 1. Continue 2 g sodium diet. 2. I suspect the edema in the colon to be related to underlying portal hypertension. For the diarrhea, the patient may benefit from more regular Imodium use.
--- NOTE | 2016-09-15 15:25 | PCM.ANEP2 ---
Post Anesthesia Evaluation ASA/CMS Post Anesthesia Date of Service: Sep 15, 2016 VS in Patient's Normal Range?: Yes Resp Stable; Airway Patent?: Yes CV Function & Hydration Stable: Yes Mental Status Recovered?: Yes Pain control Satisfactory?: Yes N/V Control Satisfactory?: Yes Perfecto Hendrix MD Sep 15, 2016 15:25
--- NOTE | 2016-09-15 17:56 | PCM.PNMED ---
Subjective Date of Service Sep 15, 2016 Subjective Patient was examined at bedside today. Patient denies any chest pain, shortness of breath, nausea, vomiting. Exam Vital Signs Vital Sign - Last Date Time Temp Pulse Resp B/P Pulse Ox O2 Delivery O2 Flow Rate FiO2 09/15/16 15:06 36.5 75 18 132/68 99 Room Air Intake and Output 09/14/16 09/14/16 09/15/16 Cumulative From/Thru 15:00 23:00 07:00 09/10/16 19:10 - 09/15/16 05:03 Intake Total 600 ml 668 ml 4828 ml Output Total 550 ml 300 ml 1754 ml Balance 50 ml 368 ml 3074 ml Intake Oral 600 ml 668 ml 4768 ml IV Total 60 ml Output Urine Total 550 ml 300 ml 1750 ml Urine/Stool Mix 4 ml # Voids 2 15 # Bowel Movements 1 10 Exam Physical Exam: GEN: Patient was awake, alert, responding appropriately to questions HEENT: PERRLA, EOMI, Neck soft supple, trachea midline, nomocephalic/atraumatic CV: +S1/S2, RRR, no murmurs auscultated Respiratory: CTAB, no wheezes, rales, rhonchi GI: +bowel sounds x4, soft, compressible, distended, mild tenderness to palpation EXT: no c/c +2 pitting edema improved from yesterday Neuro: CN II-XII grossly intact Psych: mood and affect were appropriate IVs and Medications Medications Reviewed: Medications were reviewed in detail Medications Current Medications Lactated Ringer's 1,000 ml @ 120 mls/hr Q8H20M IV; Start 09/15/16 at 12:46; Stop 09/15/16 at 20:45 Metoclopramide HCl 10 mg Q10MIN PRN IVPUSH; Start 09/15/16 at 12:50 Ondansetron HCl 4-8 mg IV every 4 hours ... Q4H PRN IVPUSH; Start 09/15/16 at 12:50 Lactated Ringer's 1,000 ml @ 120 mls/hr Q8H20M IV; Start 09/15/16 at 13:00; Stop 09/15/16 at 20:59 Loperamide HCl 2 mg DAILY PO Last administered on 09/15/16t 17:03; Admin Dose 2 MG; Start 09/15/16 at 14:57 Lab and Diagnostics Result Diagram: 09/15/16 0600 09/15/16 0600 X-Rays, CTs and MRIs PROCEDURE: CT ABDOMEN AND PELVIS WITHOUT CONTRAST ([id number]) INDICATIONS: abd pain, ascites TECHNIQUE: After the administration of oral contrast, 5 mm thick sections acquired from the diaphragms to the symphysis. 5 mm coronal and sagittal reformats were performed. For radiation dose reduction, the following was used: automated exposure control, adjustment of mA and/or kV according to patient size. COMPARISON: [facility], CT, CT ABD PELVIS W CON, 10/23/2015, 23:40. FINDINGS: Image quality: Excellent. ABDOMEN: Lung bases: Mild right pleural effusion. Heart size is normal. Solid organs: Liver is cirrhotic. The spleen is enlarged. Gallbladder has been removed. Pancreas is normal in size. No adrenal nodules. Both kidneys are normal in size, without hydronephrosis or nephrolithiasis. Peritoneum and bowel: Bowel loops demonstrate normal wall thickness and caliber. No air. Nodes and vessels: No retroperitoneal or mesenteric adenopathy by size criteria. Aorta and inferior vena cava are normal in size. Calcific splenic artery aneurysm, unchanged. Prominent portal venous collaterals. Miscellaneous: No ventral hernias. There is mild perihepatic and perisplenic fluid. PELVIS: Genitourinary: Bladder wall demonstrates mild anterior bladder wall thickening. Miscellaneous: No inguinal hernias or adenopathy. Mild dependent pelvic fluid. Bones: No suspicious bony lesions. No vertebral body compression fractures. IMPRESSION: 1. Mild right pleural effusion. 2. Cirrhosis with portal venous hypertension with varices. 3. Mild abdominal or pelvic fluid. Dictated by: Nicole Forbes M.D. on 09/11/2016 at 14:25 Approved by: Nicole Forbes M.D. on 09/11/2016 at 14:25 12-lead ECG Sinus rhythm rate 76 LAFB Cardiac Echo Impressions Interpretation Summary 1. Normal left ventricular size, wall thickness and systolic function with an estimated EF of 60-65% 2. Normal right ventricular size and systolic function. The estimated RVSP is 47 mm Hg. 3. Although not all valves were optimally visualized, there is no evidence for significant valvular pathology There is no old study for comparison Procedure: A two-dimensional transthoracic echocardiogram with color flow and Doppler was performed. The study quality was technically adequate. There is no prior echocardiogram noted for this patient. The patient was in normal sinus rhythm during the exam. Left Ventricle: The left ventricle is normal in size. There is normal left ventricular wall thickness. Mildly elevated outflow tract velocities. The ejection fraction is estimated to be 60-65%. No obvious wall motion abnormalities. Assessment of diastolic parameters suggests a pseudonormalization pattern, consistent with elevated filling pressures. Right Ventricle: The right ventricle is normal in size and function. Atria: Both atria are normal in size. No obvious color doppler evidence for an ASD. Mitral Valve: The mitral valve is normal in structure and function. There is mild mitral regurgitation. Aortic Valve: The aortic valve is not well visualized. The aortic valve is grossly normal. In the views where the valve is visualized, it appears to open well. No aortic regurgitation is present. Tricuspid Valve: The tricuspid valve is not well visualized, but is grossly normal. There is mild tricuspid regurgitation. The right ventricular systolic pressure is estimated at 47 mmHg assuming a right atrial pressure of 8 mm Hg. Pulmonic Valve: The pulmonic valve is not well visualized. There is a trace or physiologic amount of pulmonic regurgitation. Great Vessels: The aortic root is normal size. The ascending aorta is normal in size. The aortic arch is normal in size. The IVC is of normal diameter and collapses less than 50% with a sniff. This suggests a right atrial pressure of 8 mm Hg. Pericardium/ Pleura There is no pericardial effusion. MMode/2D Measurements & Calculations LVIDd: 5.1 cm RA long axis LVOT diam: 2.2 cm LVIDs: 3.9 cm LA A2 area: 18.5 cm AoV Opening FS: 23.5 % LA A4 area: 22.6 cm RA area EPSS: 0.66 cm LA length (vol) Ao root diam IVSd: 0.87 cm : 17.5 cm LVPWd: 0.93 cm LA vol: 58.3 ml RA vol asc Aorta Diam LA vol index : 47.8 ml RA Ao Arch Diam (Prox : 22.2 mm2 Trans): 2.7 cm IVC diam: 2.3 cm LV bonds. diameter/BSA LV sys. diameter/BSA RVD1 (basal) (cm/m^2): 2.4 (cm/m^2): 1.8 Doppler Measurements & Calculations Ao V2 max MV E max joe MV E/A: 1.3 TR max joe : 166.5 cm/sec : 139.4 cm/sec Med Peak E' Joe : 312.8 cm/sec Ao max PG MV A max joe TR max PG : 11.1 mmHg : 105.1 cm/sec E/E' med: 18.5 : 39.1 mmHg Ao mean PG MV P1/2t: 90.4 msec Lat Peak E' Joe PA V2 max : 112.5 cm/sec LVOT Max Joe MVA(VTI): 2.7 cm2 E/E' lat: 15.6 PA mean PG : 124.8 cm/sec E/e' average: 17.0 Pulm A Revs Dur PA Accel Time ARIELLA(I,D): 2.7 cm : 0.18 sec sev ratio MV A dur: 0.14 sec MV V2 mean MV P1/2t max joe Ao V2 mean LV V1 max PG : 86.7 cm/sec : 116.3 cm/sec MV mean PG MVA(P1/2t): 2.4 cm2 Ao V2 VTI: 42.6 cm LV V1 VTI ARIELLA(V,D): 2.8 cm2 : 30.7 cm MV V2 VTI MV dec time : 0.30 sec PA V2 mean ARIELLA indexed to BSA Pulm A Revs Dur - MV A : 80.0 cm/sec (cm^2/m^2): 1.3 Dur: -0.02 msec Reading Physician:12:11 PM Assessment & Plan Ms. Cosme is a 61 y/o Malay speaking female with a history of Hep C, liver cirrhosis, HTN, and DM2 on insulin, presenting to the ED c/o gradually worsening SOB, intermittent fevers and chills, with increasing abdominal girth for 1 month. Her presentation is suspicious for Bacterial Peritonitis, so she is admitted for treatment. Suspected Spontaneous Bacterial Peritonitis With patient's presentation and history, SBP is very suspicious. -- Continue the IV Ceftriaxone 2 grams Q24h that was began in the ED on 09/11. --CT abd w/o contrast: Mild right pleural effusion, Cirrhosis with portal venous hypertension with varices, Mild abdominal or pelvic fluid. -- GI following Diarrhea -- Discontinue Contact precautions -- C. difficile culture negative -- Encourage high-fiber diet Other sources of infection -- UA negative -- Blood cultures negative 2 days -- We will continue to monitor Cirrhosis with Ascites secondary to Hep C Likely the source of her anemia and thrombocytopenia. Currently being followed at Her AST, ALT, Tbili, and Alk Phos are all mildly elevated, but is per her baseline and is likely due to this disease process Continue home spironolactone 50mg daily --Will use IV Lasix 40 mg BID to increase diuresis in the short term. Transition to oral Lasix when appropriately dry --Add Potassium supplement if K decreases. --Avoid Hepatotoxic agents Elevated Creatinine --Patient has had similarly elevated Cr in the past few hospital visits. Likely is CKD from Hepatorenal syndrome. --Cr 1.43 on admit, improved today 1.36 --Avoid nephrotoxic agents. Consider nephrology consultation if worsens. Elevated Troponin --Trop of 0.068 on admit, Likely due to her elevated Cr, -- Subsequent troponin 0.090 on 09/11/2016 and 0.094 on 09/12/2016 most likely troponin leak --EKG on admission showed NSR -- BNP 388.2 --Will trend for evaluation -- We will continue to monitor on telemetry -- Echo shows normal EF of 60-65% no signs of valvular pathology Type 2 Diabetes Mellitus, Insulin dependent, Uncontrolled, POA --Patient has a blood sugar of 354 in the ED --HgbA1c 6.4, last A1c in 05/08 was 8.7 -- continue Lispro high dose correctional scale with Lantus 50 units BID per home regimen Hypertension --Chronic, Stable GERD --Continue home omeprazole 10mg Bowel Regimen PRN Disposition: The patient presented with a complaint of edema and increased swelling of the legs and abdomen. Patient does have a history of hepatitis C and is currently being followed at the [facility]. The patient was started on IV lasix and seemed to respond well to this as the patient stated that she had a decrease in her swelling and felt that the pain was subsiding from her lower extremities as well as her abdomen. GI was consulted and an endoscopy was scheduled for today results are pending. The patient had an elevated creatinine of 1.43 on admission and after treatment her creatinine started to trend down and today the creatinine is 1.24. Sources of infection were explored patient's blood cultures were negative. Patient has a history of chronic diarrhea and stool cultures were also negative for C. difficile. Upon admission the patient did have an elevated troponin which was most likely secondary to the elevated creatinine and thought that this might be a troponin leak. The patient's troponins were trended and it was noticed that she had a mild elevation in troponins from 0.06 - 0.104. An echo was performed showing no valvular abnormalities and her EF was 60-65%. At this time the patient has been clinically stable and not complaining of any chest pain. Her EKG on admission was noted to be similar to previous EKG. The patient's echo shows no wall abnormalities and it is less likely that the patient's elevated troponin is from a coronary event but most likely due to her hepatitis with ascites. At this time a stress test is not indicated however once the patient recovers she may get an outpatient stress test but can discuss this further with her primary care provider. This was discussed with from cardiology who also agrees with this plan. Patient is currently stable and may be discharged home tomorrow pending recommendations from GI.. VTE Prophylaxis: Sub-Q Heparin (Unfractionated) (managed per Pharmacy) VTE Mechanical Devices: Intermittant Pneumatic CD Resuscitation Status: CPR: Attempt Resuscitation Mayra Glynn DO Sep 15, 2016 17:56
[2016-09-16 05:14] VITALS: BP 113/70; PULSE 66; RESP 16; O2SAT 97
[2016-09-16] MEDS: Pantoprazole 40 mg ER24 Tablet PO SCH (06:12)
[2016-09-16] MEDS: Insulin LISPRO 300 Unit/3 mL Inj SUBQ SCH ×4 (08:00→21:50)
[2016-09-16 09:26] LABS: BASOPHILS % (AUTO) 0.8 % (0-3); EOSINOPHILS % (AUTO) 9.4 % (0-5); MONOCYTES % (AUTO) 7.1 % (4-12); Mean Corpuscular Hemoglobin 29.6 pg (27.0-35.0); Mean Corpuscular Volume 84.9 fL (81-100); NEUTROPHILS % (AUTO) 53.4 % (40-74); Platelet Count 68 bil/L (150-400)
[2016-09-16 09:48] LABS: Magnesium 1.7 mg/dL (1.6-2.6)
[2016-09-16] MEDS: Furosemide 10 mg/mL 4 mL Inj IVPUSH SCH ×2 (10:41→22:02)
[2016-09-16] MEDS: Insulin GLARgine 100 Unit/mL Syringe SUBQ SCH ×2 (10:42→22:02)
[2016-09-16] MEDS: cefTRIAXone Inj 2,000 MG in Dextrose 5% Minibag Plus 50 ML IV SCH (10:45)
--- NOTE | 2016-09-16 11:47 | PCM.PNMED ---
Subjective Date of Service Sep 16, 2016 Subjective Patient appears more comfortable today. She reports mild abdominal pain, improved from yesterday. No nausea, vomiting or diarrhea. Exam Vital Signs Vital Sign - Last Date Time Temp Pulse Resp B/P Pulse Ox O2 Delivery O2 Flow Rate FiO2 09/16/16 05:14 37.2 66 16 113/70 97 Room Air Intake and Output 09/15/16 09/15/16 09/16/16 Cumulative From/Thru 15:00 23:00 07:00 09/10/16 19:10 - 09/16/16 06:24 Intake Total 100 ml 1250 ml 200 ml 6378 ml Output Total 1754 ml Balance 100 ml 1250 ml 200 ml 4624 ml Intake Oral 1200 ml 200 ml 6168 ml IV Total 100 ml 50 ml 0 ml 210 ml Output Urine Total 1750 ml Urine/Stool Mix 4 ml # Voids 6 2 23 # Bowel Movements 10 Exam General: Alert, Oriented, Cooperative, No Acute Distress Head: Normocephalic, atraumatic. External ears normal. Eyes: PERRLA, EOMI. Anicteric sclerae. Mouth: Mouth Normal, Mucous Membranes Moist/[place] Chest & Lungs: Clear to auscultation bilaterally Cardiovascular: Regular Rate/Rhythm, Normal S1, Normal S2, No Murmurs/Rubs/ Gallops Abdomen: Mild tenderness right upper/lower abdomen, Non-distended, Obese, No masses, Decreased bowel tones, Soft Musculoskeletal: Normal Range of Motion Extremities: Bilateral lower extremity edema Neurological: Grossly Neurologically Intact, Normal Speech Lab and Diagnostics Result Diagram: 09/16/1691109/16/16 09 X-Rays, CTs and MRIs PROCEDURE: CT ABDOMEN AND PELVIS WITHOUT CONTRAST ([id number]) INDICATIONS: abd pain, ascites 1. Mild right pleural effusion. 2. Cirrhosis with portal venous hypertension with varices. 3. Mild abdominal or pelvic fluid. 12-lead ECG Sinus rhythm rate 76 LAFB Cardiac Echo Impressions Interpretation Summary 1. Normal left ventricular size, wall thickness and systolic function with an estimated EF of 60-65% 2. Normal right ventricular size and systolic function. The estimated RVSP is 47 mm Hg. 3. Although not all valves were optimally visualized, there is no evidence for significant valvular pathology There is no old study for comparison Assessment & Plan Ms. Cosme is a 61 y/o [place]ian speaking female with a history of Hep C, liver cirrhosis, HTN, and DM2 on insulin who presented with gradually worsening SOB, intermittent fevers and chills, with increasing abdominal girth for 1 month. Acute abdominal discomfort and diarrhea. Improving. - Pt presented with increasing abdominal girth and upper bilateral abdominal discomfort. Pt has been having multiple episodes of diarrhea daily. C. diff negative. Improving at this time. CT abd/pelvis showed cirrhosis with portal venous hypertension with varices, with mild perihepatic and perisplenic fluid. Infectious cause is unlikely. There was originally concern for atypical presentation for HI with elevated troponins, but EKG was negative and troponins appear stable. EGD showed portal hypertensive gastropathy, with grade 2 distal esophageal varices, which appear stable. Colonoscopy showed mild diverticulosis , mild hemorrhoids and diffuse colonic edema. The colonic edema is likely related to underlying portal hypertension and is likely the cause for the diarrhea and possibly the abdominal discomfort. Treatment of the diarrhea with PRN Imodium and regular fiber supplements may help her symptoms. - Continue Pantoprazole 40 mg daily - Encourage high-fiber diet - 2 tbsp ground flaxseed in 8 oz water. - She may benefit from PRN Imodium use. Cirrhosis with Ascites secondary to Hep C Likely the source of her pancytopenia. Currently being followed at [facility]. Last EGD was 12/30/15 which found mild portal gastropathy and multiple large Grade II varices in distal third of esophagus; 4 ligation bands were applied and pt was told to follow up for repeat EGD in 4 weeks. However, she has not followed up since then. Her AST, ALT, Tbili, and Alk Phos are all mildly elevated, but is her baseline, likely secondary to Hep C. - Continue diuretic therapy. Typically, we like to see 40 mg of Lasix for every 100 mg of spironolactone - Recommend she continue a 2 g sodium diet - Avoid hepatotoxic agents VTE Prophylaxis: Sub-Q Heparin (Unfractionated) (managed per Pharmacy) VTE Mechanical Devices: Intermittant Pneumatic CD Resuscitation Status: CPR: Attempt Resuscitation Attending Statement Patient seen and examined. Agree with assessment and plan as described by Dr Nevarez. Overall, improved. Had some imodium this morning. No bm today. No significant upper abdominal discomfort. Perhaps better with a little diuresis. From a GI standpoint, should be allowed d/c home with 2 gram sodium diet and current level of diuresis. I do not feel she needs another endoscopy and could probably cancel [facility] I would recommend surveillance EGD in 1 year. Elliott Nevarez Sep 16, 2016 11:47 Man [place] MD Sep 16, 2016 21:37
--- NOTE | 2016-09-16 15:39 | NUR ---
Social Work Continued Discharge Planning: SW spoke to patient and grandchildren at bedside to discuss discharge plan. Patient grandchildren verified information. Patient states plans to return home with daughter Selina, who to provide support and care. Patient [facility] Medicaid pending at this time. SW also contacted and left message for patient daughter Selina to provide AD paperwork. Per report in rounds white count increasing and labs ordered. Cardiology consulted. SW will continue to follow for further discharge needs pending clinical course. SW to follow. PLAN: Home with daughter pending clinical course. Medicaid pending. SW to follow for discharge needs/medications at discharge as patient is self pay. Alirio PALACIOS
--- NOTE | 2016-09-16 16:18 | DRSVH ---
PROCEDURE: X-RAY CHEST, TWO VIEWS ([id number]) INDICATIONS: Follow up for pleural effusion TECHNIQUE: 2 views of the chest were acquired. COMPARISON: [facility], CR, CHEST 1VW, 01/26/2015, 22:40. [facility], CR, CH EST 2VW, 01/26/2015, 20:52. FINDINGS: Surgical changes and devices: None. Lungs and pleura: No pleural effusions or pneumothorax. Lungs are edematous. Mediastinum: Mediastinal contours are normal. Heart size is mildly enlarged, globally. Bones and chest wall: No suspicious bony abnormalities. Soft tissues appear unremarkable. IMPRESSION: No pleural effusion found bilaterally. Chronic CHF pattern with global mild cardiomegaly . Dictated by: Henry Mansfield M.D. on 09/16/2016 at 16:16 Approved by: Henry Mansfield M.D. on 09/16/2016 at 16:16
[2016-09-16 16:31] VITALS: BP 142/70; PULSE 63; RESP 16; O2SAT 100
[2016-09-16 20:21] VITALS: BP 133/68; PULSE 65; RESP 16; O2SAT 99
--- NOTE | 2016-09-16 22:48 | PCM.PNMED ---
Subjective Date of Service Sep 16, 2016 Subjective The patient continues to complain of leg edema and abdominal distention. However, she admits that her abdomen is much softer than it was when she was admitted. She has no other new complaints. She was seen with her granddaughters are fluent in both Surin[place]e and Greek and acted as interpreters. Exam Vital Signs Vital Sign - Last Date Time Temp Pulse Resp B/P Pulse Ox O2 Delivery O2 Flow Rate FiO2 09/16/16 20:21 36.5 65 16 133/68 99 Room Air Intake and Output 09/15/16 09/15/16 09/16/16 Cumulative From/Thru 15:00 23:00 07:00 09/10/16 19:10 - 09/16/16 06:24 Intake Total 100 ml 1250 ml 200 ml 6378 ml Output Total 1754 ml Balance 100 ml 1250 ml 200 ml 4624 ml Intake Oral 1200 ml 200 ml 6168 ml IV Total 100 ml 50 ml 0 ml 210 ml Output Urine Total 1750 ml Urine/Stool Mix 4 ml # Voids 6 2 23 # Bowel Movements 10 Exam General: The patient is in no apparent distress HEENT: Head is atraumatic normocephalic. Eyes: Pupils are equally round and reactive to light and accommodation. Extraocular muscles are intact. Sclera are white anicteric. Subconjunctival mucosa is pink. Ears and nose are unremarkable. Oropharynx: There is no mucosal lesions, there is no thrush, there is no pharyngitis. Neck: Is supple, there are no nodes, or masses, or tenderness. Chest: Is clear to auscultation and percussion. There are no rales, rhonchi, wheezes or rubs. Heart: Rate, rhythm is regular. There is no murmur, rub or gallop. Abdomen: Good bowel sounds are present. Abdomen is soft, nontender, no organomegaly or masses were appreciated. Extremities: Are symmetrical and well perfused. There is no edema, there is no cellulitis, no rash. Neurologic: There are no focal neurological deficits. Cranial nerves II through XII are intact. There are no sensory or motor deficits. Psychiatric: Patients mood is calm and shows no sign of agitation. Genital: Deferred Rectal: Deferred Lab and Diagnostics Result Diagram: 09/16/1691109/16/16911 Microbiology Name: NILESH SPRINGER Age/Sex: 61/F Attend Dr: Kenya Dominguez Acct: [id number] Unit: [id number] Status: ADM [place] [facility] [place]09[place] Disch: Specimen: [id number] Collected: 09/12/16 Status: COMP Req#: [id number] Received: 09/12/16 Source: STOOL Sp Desc : Subm Dr: Mayra Glynn DO Ordered: C DIFF DNA PCR Comments: Collected by Nurse/Unit? Y/N Y Procedure Result Verified Site Microbiology VANDA PAINTING PCR STOOL Final 09/12/16-122 CDIF DNA BY PCR NEGATIVE REFERENCE INTERVAL NEGATIVE Name: ALONSO SPRINGERPE Age/Sex: 61/F Attend Dr: Kenya Dominguez Acct: [id number] Unit: [id number] Status: ADM IN [place] [facility] [place] Re09/10/16 Disch: Specimen: [id number] Collected: 09/14/16 Status: CATRINA Req#: [id number] Received: 09/14/16 Source: STOOL Sp Desc : Subm Dr: Mayra Glynn DO Ordered: WFOBT Comments: Collected by Nurse/Unit? Y/N Y Procedure Result Verified Site Microbiology VANDA OCCULT BLOOD IMMUNOCHEM Final 09/14/16 OCCULT BLD IMMUNOCHEMICAL NEGATIVE REFERENCE INTERVAL NEGATIVE Name: EMCHUCKBEVERLY,NILESH Age/Sex: 61/F Attend Dr: Kenya Dominguez Acct: [id number] Unit: [id number] Status: ADM IN [place] [facility] [place]-1 Re09/10/16 Disch: Specimen: [id number] Collected: 09/10/16 Status: COMP Req#: [id number] Received: 09/11/16 Source: BLOOD Sp Desc : AA Megan Dr: Bryce Tsai MD Ordered: GERARDO Comments: Collected by Nurse/Unit? Y/N N Comment: please add on Procedure Result Verified Site Microbiology VANDA CULTURE BLOOD Final 09/16/16-743 NO GROWTH AFTER 5 DAYS X-Rays, CTs and MRIs PROCEDURE: CT ABDOMEN AND PELVIS WITHOUT CONTRAST ([id number]) INDICATIONS: abd pain, ascites 1. Mild right pleural effusion. 2. Cirrhosis with portal venous hypertension with varices. 3. Mild abdominal or pelvic fluid. 12-lead ECG Sinus rhythm rate 76 LAFB Cardiac Echo Impressions Interpretation Summary 1. Normal left ventricular size, wall thickness and systolic function with an estimated EF of 60-65% 2. Normal right ventricular size and systolic function. The estimated RVSP is 47 mm Hg. 3. Although not all valves were optimally visualized, there is no evidence for significant valvular pathology There is no old study for comparison Assessment & Plan Ms. Cosme is a 61 y/o Greek speaking female with a history of Hep C, liver cirrhosis, HTN, and DM2 on insulin, presenting to the ED c/o gradually worsening SOB, intermittent fevers and chills, with increasing abdominal girth for 1 month. Her presentation is suspicious for Bacterial Peritonitis, so she is admitted for treatment. Suspected Spontaneous Bacterial Peritonitis With patient's presentation and history, SBP is very suspicious. -- Continue the IV Ceftriaxone 2 grams Q24h that was began in the ED on 09/11. --CT abd w/o contrast: Mild right pleural effusion, Cirrhosis with portal venous hypertension with varices, Mild abdominal or pelvic fluid. -- GI following Diarrhea -- Discontinue Contact precautions -- C. difficile culture negative -- Encourage high-fiber diet Other sources of infection -- UA negative -- Blood cultures negative 2 days -- We will continue to monitor Cirrhosis with Ascites secondary to Hep C --Likely the source of her anemia and thrombocytopenia. Currently being followed at --Her AST, ALT, Tbili, and Alk Phos are all mildly elevated, but is per her baseline and is likely due to this disease process --Continue home spironolactone 50mg daily --Will use IV Lasix 40 mg BID to increase diuresis in the short term. Transition to oral Lasix when appropriately dry --Add Potassium supplement if K decreases. --Avoid Hepatotoxic agents Elevated Creatinine --Patient has had similarly elevated Cr in the past few hospital visits. Likely is CKD from Hepatorenal syndrome. --Cr 1.43 on admit, improved today 1.28 --Avoid nephrotoxic agents. Consider nephrology consultation if worsens. Elevated Troponin --Trop of 0.068 on admit, Likely due to her elevated Cr, -- Subsequent troponin 0.090 on 09/11/2016 and 0.094 on 09/12/2016 most likely troponin leak --EKG on admission showed NSR -- BNP 388.2 --Will trend for evaluation -- We will continue to monitor on telemetry -- Echo shows normal EF of 60-65% no signs of valvular pathology Type 2 Diabetes Mellitus, Insulin dependent, Uncontrolled, POA --Patient has a blood sugar of 354 in the ED --HgbA1c 6.4, last A1c in 05/08 was 8.7 -- continue Lispro high dose correctional scale with Lantus 50 units BID per home regimen Hypertension --Chronic, Stable GERD --Continue home omeprazole 10mg Bowel Regimen PRN Disposition: The patient presented with a complaint of edema and increased swelling of the legs and abdomen. Patient does have a history of hepatitis C and is currently being followed at the [facility]. The patient was started on IV lasix and seemed to respond well to this as the patient stated that she had a decrease in her swelling and felt that the pain was subsiding from her lower extremities as well as her abdomen. GI was consulted and an endoscopy was performed yesterday and showed the following findings: ENDOSCOPIC DIAGNOSES: 1. Portal hypertensive gastropathy. 2. Grade 2 distal esophageal varices without stigmata or high risk morphology. 3. Mild colonic diverticulosis. 4. Mild hemorrhoids. 5. Diffuse colonic edema. The patient had an elevated creatinine of 1.43 on admission and after treatment her creatinine started to trend down and today the creatinine is 1.24. Sources of infection were explored patient's blood cultures were negative. Patient has a history of chronic diarrhea and stool cultures were also negative for C. difficile. Upon admission the patient did have an elevated troponin which was most likely secondary to the elevated creatinine and thought that this might be a troponin leak. The patient's troponins were trended and it was noticed that she had a mild elevation in troponins from 0.06 - 0.104. An echo was performed showing no valvular abnormalities and her EF was 60-65%. At this time the patient has been clinically stable and not complaining of any chest pain. Her EKG on admission was noted to be similar to previous EKG. The patient's echo shows no wall abnormalities and it is less likely that the patient's elevated troponin is from a coronary event but most likely due to her hepatitis with ascites. At this time a stress test is not indicated however once the patient recovers she may get an outpatient stress test but can discuss this further with her primary care provider. This was discussed with from cardiology who also agrees with this plan. We will continue to diurese the patient with IV Lasix and oral spironolactone as tolerated for the next 24-48 hours and thereafter continue with oral diuretics after discharge. VTE Prophylaxis: Sub-Q Heparin (Unfractionated) (managed per Pharmacy) VTE Mechanical Devices: Intermittant Pneumatic CD Resuscitation Status: CPR: Attempt Resuscitation Budd LakeLiban MD Sep 16, 2016 22:48
[2016-09-17 04:19] VITALS: BP 114/50; PULSE 69; RESP 18; O2SAT 100
[2016-09-17] MEDS: Pantoprazole 40 mg ER24 Tablet PO SCH (05:57)
[2016-09-17 07:17] LABS: BASOPHILS % (AUTO) 0.6 % (0-3); EOSINOPHILS % (AUTO) 7.8 % (0-5); MONOCYTES % (AUTO) 8.4 % (4-12); Mean Corpuscular Hemoglobin 29.6 pg (27.0-35.0); Mean Corpuscular Volume 87.6 fL (81-100); NEUTROPHILS % (AUTO) 51.9 % (40-74); Platelet Count 52 bil/L (150-400)
[2016-09-17 07:44] LABS: Magnesium 1.7 mg/dL (1.6-2.6)
[2016-09-17] MEDS: Insulin GLARgine 100 Unit/mL Syringe SUBQ SCH ×2 (08:00→21:28)
[2016-09-17] MEDS: Insulin LISPRO 300 Unit/3 mL Inj SUBQ SCH ×4 (08:00→21:24)
[2016-09-17] MEDS: Furosemide 10 mg/mL 4 mL Inj IVPUSH SCH ×2 (08:11→21:27)
[2016-09-17] MEDS: cefTRIAXone Inj 2,000 MG in Dextrose 5% Minibag Plus 50 ML IV SCH (08:12)
[2016-09-17 13:52] VITALS: BP 137/77; PULSE 63; RESP 16; O2SAT 99
--- NOTE | 2016-09-17 14:06 | NUR ---
NUTRITION FOLLOW-UP: ASSESS: 61 YO female admitted for ascites and elevated troponin. There is concern for Spontaneous Bacterial Peritonitis. GI is following. Pt is eating ~50% of her meals on Diabetic/HH diet. Her appetite is likely decreased due to ascites. Her edema is improving and her abdomen is less distended. PMHx: Hep C, liver cirrhosis, HTN, DM type 2, GERD. LABS: Reviewed. Bun 35, [place] Miller 1.41, Glu 101, Ca 7.6, AST 57, ALT 39, Alk phos 202, Alb 2.2 MEDS: Reviewed. Lasix, spironolactone, insulin. GI: BM x 1 09/14- C. Diff negative CURRENT WT: 116.6 kg, BMI 45.5kg, admit wt 116.4kg, IBW: 52.3kg, UBW 100 kg. (pt wt increasing d/t ascites) DIET: Diabetic. PO intake 50% EST. NEEDS (BMI, Liver Disease): 7743-0067 kcals (22-25 kcals/kg UBW), 80-105 g protein (1.5-2.0 g/kg IBW) NUTRITION DIAGNOSIS: 1.) Increased nutrient needs related to increased demand for nutrients for disease process as evidenced by chronic liver cirrhosis/hep C.--PERSISTS NUTRITION INTERVENTION: 1.) Continue Glucerna BID MONITOR / EVAL: PO intake, labs, nutritional status. Follow per moderate nutritional risk guidelines.
--- NOTE | 2016-09-17 16:03 | NUR ---
Shift: Pt denies pain, dyspnea, nausea or vomiting. Up ad carmen in room/abraham, no gait instability noted. Blood sugar low this AM, Dayanna bryan MD aware. Pt reports that her abd feels less tight, reports increased swelling to lower extremities. Care ongoing.
[2016-09-17 19:57] VITALS: BP 155/68; PULSE 68; RESP 16; O2SAT 100
--- NOTE | 2016-09-17 23:29 | PCM.PNMED ---
Subjective Date of Service Sep 17, 2016 Subjective The patient was seen with an general education instructor. She states that her leg edema has slightly improved and her abdomen is slightly softer. She still has a very poor appetite. She was encouraged to drink at least 3 Glucerna cans per day. She states that she will try to do this. Exam Vital Signs Vital Sign - Last Date Time Temp Pulse Resp B/P Pulse Ox O2 Delivery O2 Flow Rate FiO2 09/17/16 19:57 36.3 68 16 155/68 100 Room Air Intake and Output 09/16/16 09/16/16 09/17/16 Cumulative From/Thru 15:00 23:00 07:00 09/10/16 19:10 - 09/17/16 05:42 Intake Total 650 ml 250 ml 7278 ml Output Total 1600 ml 350 ml 3704 ml Balance -950 ml -100 ml 3574 ml Intake Oral 600 ml 250 ml 7018 ml IV Total 50 ml 260 ml Output Urine Total 1600 ml 350 ml 3700 ml Urine/Stool Mix 4 ml # Voids 23 # Bowel Movements 0 10 Exam General: The patient is in no apparent distress HEENT: Head is atraumatic normocephalic. Eyes: Pupils are equally round and reactive to light and accommodation. Extraocular muscles are intact. Sclera are white anicteric. Subconjunctival mucosa is pink. Ears and nose are unremarkable. Oropharynx: There is no mucosal lesions, there is no thrush, there is no pharyngitis. Neck: Is supple, there are no nodes, or masses, or tenderness. Chest: Is clear to auscultation and percussion. There are no rales, rhonchi, wheezes or rubs. Heart: Rate, rhythm is regular. There is no murmur, rub or gallop. Abdomen: Good bowel sounds are present. Abdomen is distended and firm. However , the abdomen is softer, nontender, no organomegaly or masses could be appreciated. Extremities: Are symmetrical and well perfused. There is no edema, there is no cellulitis, no rash. Neurologic: There are no focal neurological deficits. Cranial nerves II through XII are intact. There are no sensory or motor deficits. Psychiatric: Patients mood is calm and shows no sign of agitation. Genital: Deferred Rectal: Deferred Lab and Diagnostics Result Diagram: 09/17/16 0650 09/17/16 0650 Microbiology Name: NILESH SPRINGER Age/Sex: 61/F Attend Dr: Kenya Dominguez Acct: [id number] Unit: [id number] Status: ADM Flor Location: [facility] [place] 1030-1 Re09/10/16 Disch: Specimen: [id number] Collected: 09/12/16 Status: COMP Req#: [id number] Received: 09/12/16 Source: STOOL Sp Desc : Subm Dr: Mayra Glynn DO Ordered: C DIFF DNA PCR Comments: Collected by Nurse/Unit? Y/N Y Procedure Result Verified Site Microbiology VANDA Carbajal DIF PCR STOOL Final 09/12/16 CDIF DNA BY PCR NEGATIVE REFERENCE INTERVAL NEGATIVE Name: NILESH SPRINGER Age/Sex: 61/F Attend Dr: Kenya Dominguez Acct: [id number] Unit: [id number] Status: ADM IN Location: [facility] [place] 1030-1 Re09/10/16 Disch: Specimen: [id number] Collected: 09/14/16 Status: COMP Req#: [id number] Received: 09/14/16 Source: STOOL Sp Desc : Megan Dr: Mayra Glynn DO Ordered: WFOBT Comments: Collected by Nurse/Unit? Y/N Y Procedure Result Verified Site Microbiology VANDA OCCULT BLOOD IMMUNOCHEM Final 09/14/16 OCCULT BLD IMMUNOCHEMICAL NEGATIVE REFERENCE INTERVAL NEGATIVE Name: NILESH SPRINGER Age/Sex: 61/F Attend Dr: Kenya Dominguez Acct: [id number] Unit: [id number] Status: ADM IN Location: [facility] [place] 1030-1 Re09/10/16 Disch: Specimen: [id number] Collected: 09/10/16 Status: COMP Req#: [id number] Received: 09/11/16 Source: BLOOD Sp Desc : AA Megan Dr: Bryce Tsai MD Ordered: GERARDO Comments: Collected by Nurse/Unit? Y/N N Comment: please add on Procedure Result Verified Site Microbiology VANDA CULTURE BLOOD Final 09/16/16-743 NO GROWTH AFTER 5 DAYS X-Rays, CTs and MRIs PROCEDURE: CT ABDOMEN AND PELVIS WITHOUT CONTRAST ([id number]) INDICATIONS: abd pain, ascites 1. Mild right pleural effusion. 2. Cirrhosis with portal venous hypertension with varices. 3. Mild abdominal or pelvic fluid. 12-lead ECG Sinus rhythm rate 76 LAFB Cardiac Echo Impressions Interpretation Summary 1. Normal left ventricular size, wall thickness and systolic function with an estimated EF of 60-65% 2. Normal right ventricular size and systolic function. The estimated RVSP is 47 mm Hg. 3. Although not all valves were optimally visualized, there is no evidence for significant valvular pathology There is no old study for comparison Assessment & Plan Ms. Cosme is a 61 y/o Tanz[place] speaking female with a history of Hep C, liver cirrhosis, HTN, and DM2 on insulin, presenting to the ED c/o gradually worsening SOB, intermittent fevers and chills, with increasing abdominal girth for 1 month. Her presentation is suspicious for Bacterial Peritonitis, so she is admitted for treatment. Suspected Spontaneous Bacterial Peritonitis With patient's presentation and history, SBP is very suspicious. -- Continue the IV Ceftriaxone 2 grams Q24h that was began in the ED on 09/11. This would be day #7 --CT abd w/o contrast: Mild right pleural effusion, Cirrhosis with portal venous hypertension with varices, Mild abdominal or pelvic fluid. -- GI following Diarrhea -- Discontinue Contact precautions -- C. difficile culture negative -- Encourage high-fiber diet Other sources of infection -- UA negative -- Blood cultures negative 2 days -- We will continue to monitor Cirrhosis with Ascites secondary to Hep C --Likely the source of her anemia and thrombocytopenia. Currently being followed at --Her AST, ALT, Tbili, and Alk Phos are all mildly elevated, but is per her baseline and is likely due to this disease process --Continue home spironolactone 50mg daily --Will use IV Lasix 40 mg BID to increase diuresis in the short term. Transition to oral Lasix when appropriately dry --Add Potassium supplement if K decreases. --Avoid Hepatotoxic agents Elevated Creatinine --Patient has had similarly elevated Cr in the past few hospital visits. Likely is CKD from Hepatorenal syndrome. --Cr 1.43 on admit, improved today 1.28 --Avoid nephrotoxic agents. Consider nephrology consultation if worsens. Elevated Troponin --Trop of 0.068 on admit, Likely due to her elevated Cr, -- Subsequent troponin 0.090 on 09/11/2016 and 0.094 on 09/12/2016 most likely troponin leak --EKG on admission showed NSR -- BNP was 388.2, we will repeat in a.m. --Will trend for evaluation of anasarca -- We will continue to monitor on telemetry -- Echo shows normal EF of 60-65% no signs of valvular pathology Type 2 Diabetes Mellitus, Insulin dependent, Uncontrolled, POA --Patient has a blood sugar of 354 in the ED --HgbA1c 6.4, last A1c in 05/08 was 8.7 -- continue Lispro high dose correctional scale with Lantus 50 units BID per home regimen Hypertension --Chronic, Stable GERD --Continue home omeprazole 10mg Bowel Regimen PRN Disposition: The patient presented with a complaint of edema and increased swelling of the legs and abdomen. Patient does have a history of hepatitis C and is currently being followed at the [facility]. The patient was started on IV lasix and seemed to respond well to this as the patient stated that she had a decrease in her swelling and felt that the pain was subsiding from her lower extremities as well as her abdomen. GI was consulted and an endoscopy was performed yesterday and showed the following findings: ENDOSCOPIC DIAGNOSES: 1. Portal hypertensive gastropathy. 2. Grade 2 distal esophageal varices without stigmata or high risk morphology. 3. Mild colonic diverticulosis. 4. Mild hemorrhoids. 5. Diffuse colonic edema. The patient had an elevated creatinine of 1.43 on admission and after treatment her creatinine started to trend down and today the creatinine is 1.24. Sources of infection were explored patient's blood cultures were negative. Patient has a history of chronic diarrhea and stool cultures were also negative for C. difficile. Upon admission the patient did have an elevated troponin which was most likely secondary to the elevated creatinine and thought that this might be a troponin leak. The patient's troponins were trended and it was noticed that she had a mild elevation in troponins from 0.06 - 0.104. An echo was performed showing no valvular abnormalities and her EF was 60-65%. At this time the patient has been clinically stable and not complaining of any chest pain. Her EKG on admission was noted to be similar to previous EKG. The patient's echo shows no wall abnormalities and it is less likely that the patient's elevated troponin is from a coronary event but most likely due to her hepatitis with ascites. At this time a stress test is not indicated however once the patient recovers she may get an outpatient stress test but can discuss this further with her primary care provider. This was discussed with from cardiology who also agrees with this plan. We will continue to diurese the patient with IV Lasix and oral spironolactone as tolerated for the next 24-48 hours and thereafter continue with oral diuretics after discharge. Pain Evaluation: Adequate Pain Control VTE Prophylaxis: Sub-Q Heparin (Unfractionated) (managed per Pharmacy) VTE Mechanical Devices: Intermittant Pneumatic CD Resuscitation Status: CPR: Attempt Resuscitation Liban Panchal MD Sep 17, 2016 23:29
[2016-09-18] MEDS: Pantoprazole 40 mg ER24 Tablet PO SCH (05:13)
[2016-09-18 05:14] VITALS: BP 146/67; PULSE 65; RESP 18; O2SAT 99
--- NOTE | 2016-09-18 06:30 | NUR ---
Activity Patient up independently in room w/o issue. Gait steady. Denies lightheadedness/dizziness. No c/o pain or discomfort.
[2016-09-18 06:45] LABS: BASOPHILS % (AUTO) 0.5 % (0-3); EOSINOPHILS % (AUTO) 7.9 % (0-5); MONOCYTES % (AUTO) 6.9 % (4-12); Mean Corpuscular Hemoglobin 29.5 pg (27.0-35.0); Mean Corpuscular Volume 87.1 fL (81-100); NEUTROPHILS % (AUTO) 56.5 % (40-74); Platelet Count 67 bil/L (150-400)
[2016-09-18 07:21] LABS: Magnesium 1.7 mg/dL (1.6-2.6); Phosphorus 4.1 mg/dL (2.5-4.9)
[2016-09-18 07:49] LABS: TROPONIN T 0.114 ug/L (0.0-0.011)
[2016-09-18] MEDS: Insulin LISPRO 300 Unit/3 mL Inj SUBQ SCH ×4 (08:00→22:00)
[2016-09-18] MEDS: Furosemide 10 mg/mL 4 mL Inj IVPUSH SCH ×2 (10:21→19:55)
[2016-09-18] MEDS: cefTRIAXone Inj 2,000 MG in Dextrose 5% Minibag Plus 50 ML IV SCH (10:21)
[2016-09-18] MEDS: Insulin GLARgine 100 Unit/mL Syringe SUBQ SCH ×2 (10:37→22:35)
--- NOTE | 2016-09-18 12:56 | NUR ---
Social Work Readiness for Discharge: Plan remains as home with support and care from daughter Selina, . Patient independent with needs and ambulating in the hallways. Therapy assessed and recommending home. Patient is [facility] Medicaid pending and [facility] following. SW contacted [facility] and left voice mail message regarding possible discharge today to ensure follow up with Medicaid. SW to follow to reviewed medications at discharge. PLAN: Home with daughter and family support. [facility] Medicaid. SW to follow Alirio PALACIOS
[2016-09-18 13:41] VITALS: BP 146/76; PULSE 68; RESP 20; O2SAT 99
[2016-09-18 19:48] VITALS: BP 155/74; PULSE 68; RESP 16; O2SAT 99
--- NOTE | 2016-09-18 20:04 | NUR ---
Pain Patient complained of some back pain when ambulating but declined need for pain med. pt also slightly sob with exertion . Pt hoping to be discharged home soon. Diarrhea has resolved , lab values troponin continues to be elevated Dr is aware.
--- NOTE | 2016-09-19 | PCM.PNMED ---
Subjective Date of Service Sep 18, 2016 Subjective Patient complains of severe epigastric abdominal pain today. Otherwise she has no new complaints. Exam Vital Signs Vital Sign - Last Date Time Temp Pulse Resp B/P Pulse Ox O2 Delivery O2 Flow Rate FiO2 09/18/16 19:48 36.8 68 16 155/74 99 Room Air Intake and Output 09/17/16 09/17/16 09/18/16 Cumulative From/Thru 15:00 23:00 07:00 09/10/16 19:10 - 09/18/16 06:07 Intake Total 457 ml 337 ml 8072 ml Output Total 600 ml 400 ml 4704 ml Balance -143 ml -63 ml 3368 ml Intake Oral 457 ml 337 ml 7812 ml IV Total 260 ml Output Urine Total 600 ml 400 ml 4700 ml Urine/Stool Mix 4 ml # Voids 23 # Bowel Movements 1 0 11 Exam General: The patient is in no apparent distress HEENT: Head is atraumatic normocephalic. Eyes: Pupils are equally round and reactive to light and accommodation. Extraocular muscles are intact. Sclera are white anicteric. Subconjunctival mucosa is pink. Ears and nose are unremarkable. Oropharynx: There is no mucosal lesions, there is no thrush, there is no pharyngitis. Neck: Is supple, there are no nodes, or masses, or tenderness. Chest: Is clear to auscultation and percussion. There are no rales, rhonchi, wheezes or rubs. Heart: Rate, rhythm is regular. There is no murmur, rub or gallop. Abdomen: Good bowel sounds are present. Abdomen is distended and firm. However , the abdomen is tender in the epigastric and upper quadrant area. There is no guarding, no rebound tenderness. There is no organomegaly or masses could be appreciated. Extremities: Are symmetrical and well perfused. There is no edema, there is no cellulitis, no rash. Neurologic: There are no focal neurological deficits. Cranial nerves II through XII are intact. There are no sensory or motor deficits. Psychiatric: Patients mood is calm and shows no sign of agitation. Genital: Deferred Rectal: Deferred Lab and Diagnostics Result Diagram: 09/18/16 0610 09/18/16 0610 Microbiology Name: NILESH SPRINGER Age/Sex: 61/F Attend Dr: Kenya Dominguez Acct: [id number] Unit: [id number] Status: ADM Flor Location: [facility] [place] 1030-1 Re09/10/16 Disch: Specimen: [id number] Collected: 09/12/16 Status: COMP Req#: [id number] Received: 09/12/16 Source: STOOL Sp Desc : Subm Dr: Mayra Glynn DO Ordered: C AYO DNA PCR Comments: Collected by Nurse/Unit? Y/N Y Procedure Result Verified Site Microbiology VANDA C DIF PCR STOOL Final 09/12/16-1227 CDIF DNA BY PCR NEGATIVE REFERENCE INTERVAL NEGATIVE Name: NILESH SPRINGER Age/Sex: 61/F Attend Dr: Kenya Dominguez Acct: [id number] Unit: [id number] Status: ADM IN Location: [facility] [place] 1030-1 Re09/10/16 Disch: Specimen: [id number] Collected: 09/14/16 Status: COMP Req#: [id number] Received: 09/14/16 Source: STOOL Sp Desc : Subm Dr: Mayra Glynn DO Ordered: WFOBT Comments: Collected by Nurse/Unit? Y/N Y Procedure Result Verified Site Microbiology VANDA OCCULT BLOOD IMMUNOCHEM Final 09/14/16 OCCULT BLD IMMUNOCHEMICAL NEGATIVE REFERENCE INTERVAL NEGATIVE Name: NILESH SPRINGER Age/Sex: 61/F Attend Dr: Kenya Dominguez Acct: [id number] Unit: [id number] Status: ADM IN Location: [facility] [place] 1030-1 Re09/10/16 Disch: Specimen: [id number] Collected: 09/10/16 Status: COMP Req#: [id number] Received: 09/11/16 Source: BLOOD Sp Desc : ANTOINETTE Guzman Dr: Bryce Tsai MD Ordered: GERARDO Comments: Collected by Nurse/Unit? Y/N N Comment: please add on Procedure Result Verified Site Microbiology VANDA CULTURE BLOOD Final 09/16/16-44 NO GROWTH AFTER 5 DAYS X-Rays, CTs and MRIs PROCEDURE: CT ABDOMEN AND PELVIS WITHOUT CONTRAST ([id number]) INDICATIONS: abd pain, ascites 1. Mild right pleural effusion. 2. Cirrhosis with portal venous hypertension with varices. 3. Mild abdominal or pelvic fluid. 12-lead ECG Sinus rhythm rate 76 LAFB Cardiac Echo Impressions Interpretation Summary 1. Normal left ventricular size, wall thickness and systolic function with an estimated EF of 60-65% 2. Normal right ventricular size and systolic function. The estimated RVSP is 47 mm Hg. 3. Although not all valves were optimally visualized, there is no evidence for significant valvular pathology There is no old study for comparison Assessment & Plan Ms. Cosme is a 61 y/o Mold[place] speaking female with a history of Hep C, liver cirrhosis, HTN, and DM2 on insulin, presenting to the ED c/o gradually worsening SOB, intermittent fevers and chills, with increasing abdominal girth for 1 month. Her presentation is suspicious for Bacterial Peritonitis, so she is admitted for treatment. Suspected Spontaneous Bacterial Peritonitis With patient's presentation and history, SBP is very suspicious. -- Continue the IV Ceftriaxone 2 grams Q24h that was began in the ED on 09/11. This would be day # --CT abd w/o contrast: Mild right pleural effusion, Cirrhosis with portal venous hypertension with varices, Mild abdominal or pelvic fluid. -- GI following -- Patient has increased abdominal pain today. -Secondary to abdominal gas -Rule out secondary to peptic ulcer disease -Rule out secondary to pancreatitis -Secondary to spontaneous bacterial peritonitis resistant to Rocephin Order Gas-X and if abdominal pain persists we will check CT scan of the abdomen in a.m. We will also check serum lipase in a.m. Diarrhea -- Discontinue Contact precautions -- C. difficile culture negative -- Encourage high-fiber diet Other sources of infection -- UA negative -- Blood cultures negative 2 days -- We will continue to monitor Cirrhosis with Ascites secondary to Hep C --Likely the source of her anemia and thrombocytopenia. Currently being followed at --Her AST, ALT, Tbili, and Alk Phos are all mildly elevated, but is per her baseline and is likely due to this disease process --Continue home spironolactone 50mg daily --Will use IV Lasix 40 mg BID to increase diuresis in the short term. Transition to oral Lasix when appropriately dry --Add Potassium supplement if K decreases. --Avoid Hepatotoxic agents Elevated Creatinine --Patient has had similarly elevated Cr in the past few hospital visits. Likely is CKD from Hepatorenal syndrome. --Cr 1.43 on admit, improved today 1.28 --Avoid nephrotoxic agents. Consider nephrology consultation if worsens. Elevated Troponin --Trop of 0.068 on admit, Likely due to her elevated Cr, -- Subsequent troponin 0.090 on 09/11/2016 and 0.094 on 09/12/2016 most likely troponin leak --EKG on admission showed NSR -- BNP was 388.2, we will repeat in a.m. --Will trend for evaluation of anasarca -- We will continue to monitor on telemetry -- Echo shows normal EF of 60-65% no signs of valvular pathology Type 2 Diabetes Mellitus, Insulin dependent, Uncontrolled, POA --Patient has a blood sugar of 354 in the ED --HgbA1c 6.4, last A1c in 05/08 was 8.7 -- continue Lispro high dose correctional scale with Lantus 50 units BID per home regimen Hypertension --Chronic, Stable GERD --Continue home omeprazole 10mg Bowel Regimen PRN Disposition: The patient presented with a complaint of edema and increased swelling of the legs and abdomen. Patient does have a history of hepatitis C and is currently being followed at the [facility]. The patient was started on IV lasix and seemed to respond well to this as the patient stated that she had a decrease in her swelling and felt that the pain was subsiding from her lower extremities as well as her abdomen. GI was consulted and an endoscopy was performed yesterday and showed the following findings: ENDOSCOPIC DIAGNOSES: 1. Portal hypertensive gastropathy. 2. Grade 2 distal esophageal varices without stigmata or high risk morphology. 3. Mild colonic diverticulosis. 4. Mild hemorrhoids. 5. Diffuse colonic edema. The patient had an elevated creatinine of 1.43 on admission and after treatment her creatinine started to trend down and today the creatinine is 1.24. Sources of infection were explored patient's blood cultures were negative. Patient has a history of chronic diarrhea and stool cultures were also negative for C. difficile. Upon admission the patient did have an elevated troponin which was most likely secondary to the elevated creatinine and thought that this might be a troponin leak. The patient's troponins were trended and it was noticed that she had a mild elevation in troponins from 0.06 - 0.104. An echo was performed showing no valvular abnormalities and her EF was 60-65%. At this time the patient has been clinically stable and not complaining of any chest pain. Her EKG on admission was noted to be similar to previous EKG. The patient's echo shows no wall abnormalities and it is less likely that the patient's elevated troponin is from a coronary event but most likely due to her hepatitis with ascites. At this time a stress test is not indicated however once the patient recovers she may get an outpatient stress test but can discuss this further with her primary care provider. This was discussed with from cardiology who also agrees with this plan. We will continue to diurese the patient with IV Lasix and oral spironolactone as tolerated for the next 24-48 hours and thereafter continue with oral diuretics after discharge. Pain Evaluation: Adequate Pain Control VTE Prophylaxis: Sub-Q Heparin (Unfractionated) (managed per Pharmacy) VTE Mechanical Devices: Intermittant Pneumatic CD Resuscitation Status: CPR: Attempt Resuscitation Liban Panchal MD Sep 19, 2016 00:00
[2016-09-19 04:50] VITALS: BP 146/69; PULSE 71; RESP 16; O2SAT 98
--- NOTE | 2016-09-19 05:06 | NUR ---
pain / GI Rates abdominal pain at a 2 after simethicone given. Ambulates independently in room. Denies nausea, has rested quietly overnight.
[2016-09-19] MEDS: Pantoprazole 40 mg ER24 Tablet PO SCH (07:57)
[2016-09-19] MEDS: Insulin LISPRO 300 Unit/3 mL Inj SUBQ SCH ×4 (08:00→21:50)
[2016-09-19] MEDS: cefTRIAXone Inj 2,000 MG in Dextrose 5% Minibag Plus 50 ML IV SCH (08:24)
[2016-09-19] MEDS: Insulin GLARgine 100 Unit/mL Syringe SUBQ SCH ×2 (09:00→22:30)
[2016-09-19] MEDS: Furosemide 10 mg/mL 4 mL Inj IVPUSH SCH ×2 (09:11→20:22)
[2016-09-19 10:08] LABS: BASOPHILS % (AUTO) 0.4 % (0-3); EOSINOPHILS % (AUTO) 8.2 % (0-5); MONOCYTES % (AUTO) 7.1 % (4-12); Mean Corpuscular Hemoglobin 29.8 pg (27.0-35.0); Mean Corpuscular Volume 86.1 fL (81-100); NEUTROPHILS % (AUTO) 52.8 % (40-74); Platelet Count 77 bil/L (150-400)
[2016-09-19 10:39] LABS: Magnesium 1.8 mg/dL (1.6-2.6)
[2016-09-19 14:40] VITALS: BP 152/60; PULSE 69; RESP 16; O2SAT 99
--- NOTE | 2016-09-19 15:51 | NUR ---
Ascites / Edema / Diarrhea Pt's abdomen and lower extremities remain swollen; pt and family are concerned about this. Pt denies pain, however. Hospitalist explained to pt that the edema will not go away due to pt's liver disease. Physician suggested pt follow up with a liver specialist at . Pt's daughter stated that pt goes to a liver clinic at [facility]. Physician encouraged pt to continue attending that clinic. Pt reported having 3 or 4 loose BMs today. Hospitalist wanted pt to be checked for C. diff before she is discharged. Asked pt to left staff know when she has another BM. Specimen collection hat in place. Care continues.
[2016-09-19 21:50] VITALS: BP 135/72; PULSE 70; RESP 18; O2SAT 99
--- NOTE | 2016-09-20 00:05 | PCM.PNMED ---
Subjective Date of Service Sep 19, 2016 Subjective Patient was seen with her daughter at bedside who acted as an second cutter. Patient's abdominal pain has markedly improved, however she now complains of diarrhea. She has no other new complaints. Exam Vital Signs Vital Sign - Last Date Time Temp Pulse Resp B/P Pulse Ox O2 Delivery O2 Flow Rate FiO2 09/19/16 14:40 36.8 69 16 152/60 99 Room Air Intake and Output 09/18/16 09/18/16 09/19/16 Cumulative From/Thru 15:00 23:00 07:00 09/10/16 19:10 - 09/19/16 06:19 Intake Total 640 ml 537 ml 9249 ml Output Total 600 ml 500 ml 5804 ml Balance 40 ml 37 ml 3445 ml Intake Oral 640 ml 537 ml 8989 ml IV Total 260 ml Output Urine Total 600 ml 500 ml 5800 ml Urine/Stool Mix 4 ml # Voids 23 # Bowel Movements 0 11 Exam General: The patient is in no apparent distress HEENT: Head is atraumatic normocephalic. Eyes: Pupils are equally round and reactive to light and accommodation. Extraocular muscles are intact. Sclera are white anicteric. Subconjunctival mucosa is pink. Ears and nose are unremarkable. Oropharynx: There is no mucosal lesions, there is no thrush, there is no pharyngitis. Neck: Is supple, there are no nodes, or masses, or tenderness. Chest: Is clear to auscultation and percussion. There are no rales, rhonchi, wheezes or rubs. Heart: Rate, rhythm is regular. There is no murmur, rub or gallop. Abdomen: Good bowel sounds are present. Abdomen is distended. however, the abdomen is softer and much less tender today. Intact there is no tenderness at all on palpation today. There is no guarding, no rebound tenderness. No organomegaly or masses could be appreciated. Extremities: Are symmetrical and well perfused. There is no edema, there is no cellulitis, no rash. Neurologic: There are no focal neurological deficits. Cranial nerves II through XII are intact. There are no sensory or motor deficits. Psychiatric: Patients mood is calm and shows no sign of agitation. Genital: Deferred Rectal: Deferred Lab and Diagnostics Result Diagram: 09/19/16 0950 09/19/16 0950 Microbiology Name: NILESH SPRINGER Age/Sex: 61/F Attend Dr: Kenya Dominguez Acct: [id number] Unit: [id number] Status: ADM Flor Location: [facility] 1030-1 Re09/10/16 Disch: Specimen: [id number] Collected: 09/12/16 Status: COMP Req#: [id number] Received: 09/12/16 Source: STOOL Sp Desc : Subm Dr: Mayra Glynn DO Ordered: C AYO DNA PCR Comments: Collected by Nurse/Unit? Y/N Y Procedure Result Verified Site Microbiology VANDA Carbajal DIF PCR STOOL Final 09/12/16122 CDIF DNA BY PCR NEGATIVE REFERENCE INTERVAL NEGATIVE Name: NILESH SPRINGER Age/Sex: 61/F Attend Dr: Kenya Dominguez Acct: [id number] Unit: [id number] Status: ADM IN Location: [facility] 1030-1 Re09/10/16 Disch: Specimen: [id number] Collected: 09/14/16 Status: COMP Req#: [id number] Received: 09/14/16 Source: STOOL Sp Desc : Megan Dr: Mayra Glynn DO Ordered: WFOBT Comments: Collected by Nurse/Unit? Y/N Y Procedure Result Verified Site Microbiology VANDA OCCULT BLOOD IMMUNOCHEM Final 09/14/16 OCCULT BLD IMMUNOCHEMICAL NEGATIVE REFERENCE INTERVAL NEGATIVE Name: NILESH SPRINGER Age/Sex: 61/F Attend Dr: Kenya Dominguez Acct: [id number] Unit: [id number] Status: ADM IN Location: [facility] 1030-1 Re09/10/16 Disch: Specimen: [id number] Collected: 09/10/16 Status: COMP Req#: [id number] Received: 09/11/16 Source: BLOOD Sp Desc : AA Megan Dr: Bryce Tsai MD Ordered: GERARDO Comments: Collected by Nurse/Unit? Y/N N Comment: please add on Procedure Result Verified Site Microbiology VANDA CULTURE BLOOD Final 09/16/16-743 NO GROWTH AFTER 5 DAYS X-Rays, CTs and MRIs PROCEDURE: CT ABDOMEN AND PELVIS WITHOUT CONTRAST ([id number]) INDICATIONS: abd pain, ascites 1. Mild right pleural effusion. 2. Cirrhosis with portal venous hypertension with varices. 3. Mild abdominal or pelvic fluid. 12-lead ECG Sinus rhythm rate 76 LAFB Cardiac Echo Impressions Interpretation Summary 1. Normal left ventricular size, wall thickness and systolic function with an estimated EF of 60-65% 2. Normal right ventricular size and systolic function. The estimated RVSP is 47 mm Hg. 3. Although not all valves were optimally visualized, there is no evidence for significant valvular pathology There is no old study for comparison Assessment & Plan Ms. Cosme is a 61 y/o Tajik speaking female with a history of Hep C, liver cirrhosis, HTN, and DM2 on insulin, presenting to the ED c/o gradually worsening SOB, intermittent fevers and chills, with increasing abdominal girth for 1 month. Her presentation is suspicious for Bacterial Peritonitis, so she is admitted for treatment. Suspected Spontaneous Bacterial Peritonitis With patient's presentation and history, SBP is very suspicious. -- Continue the IV Ceftriaxone 2 grams Q24h that was began in the ED on 09/11. This would be day #9 of 10 --CT abd w/o contrast: Mild right pleural effusion, Cirrhosis with portal venous hypertension with varices, Mild abdominal or pelvic fluid. -- GI following -- Patient had increased abdominal pain which has resolved today. I suspect this was secondary to abdominal gas -Secondary to abdominal gas -Doubt secondary to peptic ulcer disease -There is no evidence that this is secondary to pancreatitis as the serum lipase was normal -Secondary to spontaneous bacterial peritonitis resistant to Rocephin, however this is unlikely as patient is completing treatment and pain has resolved on simethicone. -Continue Gas-X and if abdominal pain persists we will check CT scan of the abdomen in a.m. Diarrhea -- We will repeat stool for PCR DNA panel -- Discontinue Contact precautions -- C. difficile culture negative -- Encourage high-fiber diet Other sources of infection -- UA negative -- Blood cultures negative 2 days -- We will continue to monitor Cirrhosis with Ascites secondary to Hep C --Likely the source of her anemia and thrombocytopenia. Currently being followed at --Her AST, ALT, Tbili, and Alk Phos are all mildly elevated, but is per her baseline and is likely due to this disease process --Continue home spironolactone 50mg daily --Will use IV Lasix 40 mg BID to increase diuresis in the short term. Transition to oral Lasix when appropriately dry --Add Potassium supplement if K decreases. --Avoid Hepatotoxic agents Elevated Creatinine --Patient has had similarly elevated Cr in the past few hospital visits. Likely is CKD from Hepatorenal syndrome. --Cr 1.43 on admit, improved today 1.28 --Avoid nephrotoxic agents. Consider nephrology consultation if worsens. Elevated Troponin --Trop of 0.068 on admit, Likely due to her elevated Cr, -- Subsequent troponin 0.090 on 09/11/2016 and 0.094 on 09/12/2016 most likely troponin leak --EKG on admission showed NSR -- BNP was 388.2, we will repeat in a.m. --Will trend for evaluation of anasarca -- We will continue to monitor on telemetry -- Echo shows normal EF of 60-65% no signs of valvular pathology Type 2 Diabetes Mellitus, Insulin dependent, Uncontrolled, POA --Patient has a blood sugar of 354 in the ED --HgbA1c 6.4, last A1c in 05/08 was 8.7 -- continue Lispro high dose correctional scale with Lantus 50 units BID per home regimen Hypertension --Chronic, Stable GERD --Continue home omeprazole 10mg Bowel Regimen PRN Disposition: The patient presented with a complaint of edema and increased swelling of the legs and abdomen. Patient does have a history of hepatitis C and is currently being followed at [facility]. The patient was started on IV lasix and seemed to respond well to this as the patient stated that she had a decrease in her swelling and felt that the pain was subsiding from her lower extremities as well as her abdomen. GI was consulted and an endoscopy was performed yesterday and showed the following findings: ENDOSCOPIC DIAGNOSES: 1. Portal hypertensive gastropathy. 2. Grade 2 distal esophageal varices without stigmata or high risk morphology. 3. Mild colonic diverticulosis. 4. Mild hemorrhoids. 5. Diffuse colonic edema. The patient had an elevated creatinine of 1.43 on admission and after treatment her creatinine started to trend down and today the creatinine is 1.24. Sources of infection were explored patient's blood cultures were negative. Patient has a history of chronic diarrhea and stool cultures were also negative for C. difficile. Upon admission the patient did have an elevated troponin which was most likely secondary to the elevated creatinine and thought that this might be a troponin leak. The patient's troponins were trended and it was noticed that she had a mild elevation in troponins from 0.06 - 0.104. An echo was performed showing no valvular abnormalities and her EF was 60-65%. At this time the patient has been clinically stable and not complaining of any chest pain. Her EKG on admission was noted to be similar to previous EKG. The patient's echo shows no wall abnormalities and it is less likely that the patient's elevated troponin is from a coronary event but most likely due to her hepatitis with ascites. At this time a stress test is not indicated however once the patient recovers she may get an outpatient stress test but can discuss this further with her primary care provider. This was discussed with from cardiology who also agrees with this plan. We will continue to diurese the patient with IV Lasix and oral spironolactone as tolerated for the next 24-48 hours and thereafter continue with oral diuretics after discharge. Pain Evaluation: Adequate Pain Control VTE Prophylaxis: Sub-Q Heparin (Unfractionated) (managed per Pharmacy) VTE Mechanical Devices: Intermittant Pneumatic CD Resuscitation Status: CPR: Attempt Resuscitation AbdulkadirLiban MD Sep 20, 2016 00:05
[2016-09-20 05:30] LABS: BASOPHILS % (AUTO) 0.3 % (0-3); MONOCYTES % (AUTO) 7.6 % (4-12); Mean Corpuscular Hemoglobin 29.5 pg (27.0-35.0); Mean Corpuscular Volume 86.7 fL (81-100); NEUTROPHILS % (AUTO) 57.1 % (40-74); Platelet Count 60 bil/L (150-400)
[2016-09-20 05:53] LABS: Magnesium 1.8 mg/dL (1.6-2.6)
[2016-09-20 06:03] LABS: ERYTHROCYTE SEDIMENTATION RATE 34 mm/hr (0-40)
[2016-09-20 06:25] VITALS: BP 118/68; PULSE 70; RESP 16; O2SAT 98
--- NOTE | 2016-09-20 07:49 | NUR ---
no acute changes overnight Denies abd pain. Up independently in room.
[2016-09-20] MEDS: Insulin LISPRO 300 Unit/3 mL Inj SUBQ SCH ×2 (08:00→12:14)
[2016-09-20] MEDS ORDERED: 0.9% Sodium Chloride 250 ML ONE (08:29)
[2016-09-20] MEDS: Pantoprazole 40 mg ER24 Tablet PO SCH (08:50)
[2016-09-20] MEDS: Insulin GLARgine 100 Unit/mL Syringe SUBQ SCH (08:51)
[2016-09-20] MEDS: cefTRIAXone Inj 2,000 MG in Dextrose 5% Minibag Plus 50 ML IV SCH (08:51)
[2016-09-20] MEDS: Furosemide 10 mg/mL 4 mL Inj IVPUSH SCH (08:52)
[2016-09-20 11:56] VITALS: BP 147/73; PULSE 68; RESP 16; O2SAT 98
--- NOTE | 2016-09-20 12:45 | PCM.DIMED ---
Discharge Instructions Date of Service Sep 20, 2016 Dates of Hospitalization Sep 10, 2016 at 22:54 Diet Heart Healthy Activity No restrictions (May increase activity gradually as tolerated) Call your provider Fever or Chills, Shortness of breath, Bleeding, Chest pain, Vomitting, Excessive diarrhea, Weakness (unilateral), Other Patient Instructions Follow-up Provider: ANDREA BOYD PA-C Follow-up with PCP in: 1 week Provider: Man Vegas MD Follow-up in: 2 weeks Attending's Statement Follow up with the [facility] as previously scheduled Liban Panchal MD Sep 20, 2016 12:45
[2016-09-20] MEDS ORDERED: FLUO20CA25 PO (12:50)
--- NOTE | 2016-09-20 15:21 | NUR ---
Discharge Pt d/c'd home at approx 1515. Reviewed d/c instructions w/ patient and her family. Answered all questions. RX to be picked up at pharmacy. IV d/c'd intact. Pt denied offer of w/c to son's POV. Left w/ all belongings.
--- NOTE | 2016-09-28 13:06 | PCM.DC.MED ---
Discharge Summary Date of Service Sep 20, 2016 Dates of Hospitalization Date of Hospital Admission Sep 10, 2016 at 22:54 Date of Discharge: Sep 20, 2016 Providers: Admitting Physician: Kenya Dominguez DO Primary Care Physician: Andrea Boyd Pa-C Attending Physician: Kenya Dominguez DO Diagnosis at Time of Discharge Diagnosis at Time of Discharge End Stage Liver Disease with Anasarca Consultations Gastroenterology Procedures XRay, CTs & MRIs PROCEDURE: CT ABDOMEN AND PELVIS WITHOUT CONTRAST ([id number]) INDICATIONS: abd pain, ascites 1. Mild right pleural effusion. 2. Cirrhosis with portal venous hypertension with varices. 3. Mild abdominal or pelvic fluid. ECG 12 Lead Sinus rhythm rate 76 LAFB Cardiac Echo Impression Interpretation Summary 1. Normal left ventricular size, wall thickness and systolic function with an estimated EF of 60-65% 2. Normal right ventricular size and systolic function. The estimated RVSP is 47 mm Hg. 3. Although not all valves were optimally visualized, there is no evidence for significant valvular pathology There is no old study for comparison Brief History Pt is a 61 y/o Fijian speaking female w/ a hx of Hep C and subsequent liver cirrhosis, HTN, and DM2 on insulin, presenting to the ED c/o gradually worsening SOB and increasing abdominal girth for 1 month. She was diagnosed with cirrhosis 1 year ago and her ascites is normally treated with diuretics, but in the past month she is having progressive peripheral edema and increasing abdominal girth. She also reports diffuse abdominal pain and intermittent bouts of fever/chills throughout the past month. She denies chest pain, fever, N/V/D, or hematochezia. She was told during her previous admit at [facility] that her ascites may have been affecting her heart and that her platelets were low, but has never had a paracentesis performed before. There is a scheduled appointment with her clinical nursing professor at for an endoscopy later this month. She reports she has not taken her Insulin yet today. The patient was admitted to the hospitalist service for further evaluation and treatment. Hospital Course Ms. Cosme is a 61 y/o Fijian speaking female with a history of Hep C, liver cirrhosis, HTN, and DM2 on insulin, presenting to the ED c/o gradually worsening SOB, intermittent fevers and chills, with increasing abdominal girth for 1 month. Her presentation is suspicious for Bacterial Peritonitis, so she is admitted for treatment. Suspected Spontaneous Bacterial Peritonitis With patient's presentation and history, SBP is very suspicious. -- Continue the IV Ceftriaxone 2 grams Q24h that was began in the ED on 09/11. This would be day #9 of 10 --CT abd w/o contrast: Mild right pleural effusion, Cirrhosis with portal venous hypertension with varices, Mild abdominal or pelvic fluid. -- GI following -- Patient had increased abdominal pain which has resolved today. I suspect this was secondary to abdominal gas -Secondary to abdominal gas -Doubt secondary to peptic ulcer disease -There is no evidence that this is secondary to pancreatitis as the serum lipase was normal -Secondary to spontaneous bacterial peritonitis resistant to Rocephin, however this is unlikely as patient is completing treatment and pain has resolved on simethicone. -Continue Gas-X and if abdominal pain persists we will check CT scan of the abdomen in a.m. Diarrhea -- We will repeat stool for PCR DNA panel -- Discontinue Contact precautions -- C. difficile culture negative -- Encourage high-fiber diet Other sources of infection -- UA negative -- Blood cultures negative 2 days -- We will continue to monitor Cirrhosis with Ascites secondary to Hep C --Likely the source of her anemia and thrombocytopenia. Currently being followed at --Her AST, ALT, Tbili, and Alk Phos are all mildly elevated, but is per her baseline and is likely due to this disease process --Continue home spironolactone 50mg daily --Will use IV Lasix 40 mg BID to increase diuresis in the short term. Transition to oral Lasix when appropriately dry --Add Potassium supplement if K decreases. --Avoid Hepatotoxic agents Elevated Creatinine --Patient has had similarly elevated Cr in the past few hospital visits. Likely is CKD from Hepatorenal syndrome. --Cr 1.43 on admit, improved today 1.28 --Avoid nephrotoxic agents. Consider nephrology consultation if worsens. Elevated Troponin --Trop of 0.068 on admit, Likely due to her elevated Cr, -- Subsequent troponin 0.090 on 09/11/2016 and 0.094 on 09/12/2016 most likely troponin leak --EKG on admission showed NSR -- BNP was 388.2, we will repeat in a.m. --Will trend for evaluation of anasarca -- We will continue to monitor on telemetry -- Echo shows normal EF of 60-65% no signs of valvular pathology Type 2 Diabetes Mellitus, Insulin dependent, Uncontrolled, POA --Patient has a blood sugar of 354 in the ED --HgbA1c 6.4, last A1c in 05/08 was 8.7 -- continue Lispro high dose correctional scale with Lantus 50 units BID per home regimen Hypertension --Chronic, Stable GERD --Continue home omeprazole 10mg Bowel Regimen PRN Disposition: The patient presented with a complaint of edema and increased swelling of the legs and abdomen. Patient does have a history of hepatitis C and is currently being followed at [facility]. The patient was started on IV lasix and seemed to respond well to this as the patient stated that she had a decrease in her swelling and felt that the pain was subsiding from her lower extremities as well as her abdomen. GI was consulted and an endoscopy was performed yesterday and showed the following findings: ENDOSCOPIC DIAGNOSES: 1. Portal hypertensive gastropathy. 2. Grade 2 distal esophageal varices without stigmata or high risk morphology. 3. Mild colonic diverticulosis. 4. Mild hemorrhoids. 5. Diffuse colonic edema. The patient had an elevated creatinine of 1.43 on admission and after treatment her creatinine started to trend down and today the creatinine is 1.24. Sources of infection were explored patient's blood cultures were negative. Patient has a history of chronic diarrhea and stool cultures were also negative for C. difficile. Upon admission the patient did have an elevated troponin which was most likely secondary to the elevated creatinine and thought that this might be a troponin leak. The patient's troponins were trended and it was noticed that she had a mild elevation in troponins from 0.06 - 0.104. An echo was performed showing no valvular abnormalities and her EF was 60-65%. At this time the patient has been clinically stable and not complaining of any chest pain. Her EKG on admission was noted to be similar to previous EKG. The patient's echo shows no wall abnormalities and it is less likely that the patient's elevated troponin is from a coronary event but most likely due to her hepatitis with ascites. At this time a stress test is not indicated however once the patient recovers she may get an outpatient stress test but can discuss this further with her primary care provider. This was discussed with from cardiology who also agrees with this plan. We will continue to diurese the patient with IV Lasix and oral spironolactone as tolerated. The Lasix was changed to PO and the patient was ready to be discharged today. Exam Exam General: The patient is in no apparent distress HEENT: Head is atraumatic normocephalic. Eyes: Pupils are equally round and reactive to light and accommodation. Extraocular muscles are intact. Sclera are white anicteric. Subconjunctival mucosa is pink. Ears and nose are unremarkable. Oropharynx: There is no mucosal lesions, there is no thrush, there is no pharyngitis. Neck: Is supple, there are no nodes, or masses, or tenderness. Chest: Is clear to auscultation and percussion. There are no rales, rhonchi, wheezes or rubs. Heart: Rate, rhythm is regular. There is no murmur, rub or gallop. Abdomen: Good bowel sounds are present. Abdomen is distended. however, the abdomen is softer and much less tender today. Intact there is no tenderness at all on palpation today. There is no guarding, no rebound tenderness. No organomegaly or masses could be appreciated. Extremities: Are symmetrical and well perfused. There is no edema, there is no cellulitis, no rash. Neurologic: There are no focal neurological deficits. Cranial nerves II through XII are intact. There are no sensory or motor deficits. Psychiatric: Patients mood is calm and shows no sign of agitation. She is anxious to go home. Genital: Deferred Rectal: Deferred Test 09/10/16 19:55 09/11/16 01:06 09/11/16 01:13 09/11/16 06:12 Hold Mcdonough Top Tube Received (Received) Lactic Acid Level 1.1mmol/L (0.4-2.0) Hemoglobin A1c 6.4% (4.8-5.6) Prothrombin Time 11.4sec (8.1-12.5) Prothromb Time International Ratio 1.06ratio Test 09/12/16 18:35 09/18/16 06:10 09/19/16 09:50 09/20/16 05:12 Urine Color Yellow (YELLOW) Urine Appearance Clear (CLEAR,HAZY) Urine pH 6.0 (5.0-8.0) Urine Specific [place] 1.010 (1.003-1.035) Urine Protein 30mg/dL (NEG,TRACE) Urine Glucose (UA) Negativemg/dL (NEGATIVE) Urine Ketones Negativemg/dL (NEGATIVE) Urine Occult Blood Moderate (NEGATIVE) Urine Nitrite Negative (NEGATIVE) Urine Bilirubin Negative (NEGATIVE) Urine Urobilinogen Normalmg/dL (NORMAL) Urine Leukocyte Esterase Negative (NEGATIVE) Urine RBC 0-2/hpf (0-2) Urine WBC 0-5/hpf (0-5) Urine Epithelial Cells Few/hpf (NONE-MOD) Urine Crystals None seen (NONE SEEN) Urine Bacteria Few/hpf (NONE-FEW) Urine Hyaline Casts Rare/lpf (NONE) Urine Granular Casts None seen (NONE SEEN) Urine Waxy Casts None seen (NONE SEEN) Urine Red Blood Cell Casts None seen (NONE SEEN) Urine White Blood Cell Casts None seen (NONE SEEN) Urine Mucus None seen (None Seen) Urine Trichomonas None seen (NONE SEEN) Urine Yeast None (NONE SEEN) Urinalysis Comment None Urine Culture Reflexed Not indicated Phosphorus Level 4.1mg/dL (2.5-4.9) Pro-B-Type Natriuretic Peptide 364.8pg/mL (0-287) Procalcitonin 0.06ng/mL (See Comment) Troponin T 0.122ug/L (0.0-0.011) White Blood Count 3.8th/mm3 (3.8-10.1) Red Blood Count 2.85mil/mm3 (3.90-5.20) Hemoglobin 8.4g/dL (12.0-15.6) Hematocrit 24.7% (35.0-46.0) Mean Corpuscular Volume 86.7fL (81-100) Mean Corpuscular Hemoglobin 29.5pg (27.0-35.0) Mean Corpuscular Hemoglobin Concent 34.0% (32.0-37.0) Red Cell Distribution Width 13.6% (12.3-15.4) Platelet Count 60bil/L (150-400) Neutrophils (%) (Auto) 57.1% (40-74) Lymphocytes (%) (Auto) 27.7% (14-46) Monocytes (%) (Auto) 7.6% (4-12) Eosinophils (%) (Auto) 7.0% (0-5) Basophils (%) (Auto) 0.3% (0-3) Erythrocyte Sedimentation Rate 34mm/hr (0-40) Sodium Level 138mEq/L (134-144) Potassium Level 4.8mEq/L (3.5-5.2) Chloride Level 107mEq/L (97-108) Carbon Dioxide Level 22mmol/L (18-29) Blood Urea Nitrogen 40mg/dL (8-27) Creatinine 1.32mg/dL (0.57-1.00) Estimat Glomerular Filtration Rate 58mL/min (>59) Glucose Level 103mg/dL (60-99) Calcium Level 8.1mg/dL (8.5-10.1) Magnesium Level 1.8mg/dL (1.6-2.6) Total Bilirubin 0.7mg/dL (0.0-1.2) Aspartate Amino Transf (AST/SGOT) 52U/L (0-50) Alanine Aminotransferase (ALT/SGPT) 35U/L (0-32) Alkaline Phosphatase 208U/L (25-165) Ammonia 144ug/dL (18-53) Total Protein 4.6g/dL (6.4-8.4) Albumin 2.3g/dL (3.4-5.0) Triglycerides Level 68mg/dL (0-149) Cholesterol Level 145mg/dL (100-199) LDL Cholesterol, Calculated 79.400mg/dL (0-99) VLDL Cholesterol 13.600mg/dL HDL Cholesterol 52mg/dL (>39) Cholesterol/HDL Ratio 2.79 (0.0-4.4) Lipase 58U/L (13-60) Microbiology Results Name: NILESH SPRINGER Age/Sex: 61/F Attend Dr: Kenya Dominguez Acct: [id number] Unit: [id number] Status: ADM Flor Location: [facility] [place] 1030-1 Re09/10/16 Disch: Specimen: [id number] Collected: 09/12/16 Status: COMP Req#: [id number] Received: 09/12/16 Source: STOOL Sp Desc : Subm Dr: Mayra Glynn DO Ordered: Solomon ROLLINS DNA PCR Comments: Collected by Nurse/Unit? Y/N Y Procedure Result Verified Site Microbiology VANDA C DIF PCR STOOL Final 09/12/16 CDIF DNA BY PCR NEGATIVE REFERENCE INTERVAL NEGATIVE Name: NILESH SPRINGER Age/Sex: 61/F Attend Dr: Kenya Dominguez Acct: [id number] Unit: [id number] Status: ADM IN Location: [facility] [place] 1030-1 Re09/10/16 Disch: Specimen: [id number] Collected: 09/14/16 Status: COMP Req#: [id number] Received: 09/14/16 Source: STOOL Sp Desc : Subm Dr: Mayra Glynn DO Ordered: WFOBT Comments: Collected by Nurse/Unit? Y/N Y Procedure Result Verified Site Microbiology VANDA OCCULT BLOOD IMMUNOCHEM Final 09/14/16 OCCULT BLD IMMUNOCHEMICAL NEGATIVE REFERENCE INTERVAL NEGATIVE Name: NILESH SPRINGER Age/Sex: 61/F Attend Dr: Kenya Dominguez Acct: [id number] Unit: [id number] Status: ADM IN Location: [facility] [place] 1030-1 Re09/10/16 Disch: Specimen: [id number] Collected: 09/10/16 Status: COMP Req#: [id number] Received: 09/11/16 Source: BLOOD Sp Desc : ANTOINETTE Guzman Dr: Bryce Tsai MD Ordered: GERARDO Comments: Collected by Nurse/Unit? Y/N N Comment: please add on Procedure Result Verified Site Microbiology VANDA CULTURE BLOOD Final 09/16/16 NO GROWTH AFTER 5 DAYS Discharge Medications Discharge Medications Fluoxetine (Fluoxetine) 20 Mg Capsule 20 MG PO DAILY Prescribed by: JOHN PANCHAL MD Furosemide (Furosemide) 80 Mg Tab 80 MG PO DAILY (Reported) Insulin Glargine (Lantus U100 Insulin Vial) 100 Unit/Ml Vial 50 UNIT SUBQ BID ( Reported) Spironolactone (Spironolactone) 50 Mg Tablet 50 MG PO DAILY (Reported) Followup Plan Disposition: The patient was discharged home with her family. Discharge Diet: Heart Healthy Discharge Activity: No restrictions (May increase activity gradually as tolerated) Follow-up Provider: ANDREA BOYD PA-C Follow-up with PCP in: 1 week Provider: Man Vegas MD Follow-up in: 2 weeks Time spent The time taken to discharge this patient was over 30 minutes, over half of which was involved in counseling and coordination of care. Liban Panchal MD Sep 28, 2016 13:06
== END 2016-09-20 15:00 | disposition home or self-care (01) | DRG 372 ==
LOC: SED 18:47 → OFED 22:54 → INTOOBSV 22:54 → OBSVTOIN 22:54 → OSC 09-11
PROVIDERS: ADMIT Internal Medicine; ATTEND Internal Medicine
PROC: 0DJ68ZZ Inspection of Stomach, Via Natural or Artificial Opening Endoscopic (ICD-10-PCS; principal; 2016-09-15 12:45)
PROC: 0DJD8ZZ Inspection of Lower Intestinal Tract, Via Natural or Artificial Opening Endoscopic (ICD-10-PCS; 2016-09-15 12:45)
DX: K65.2 Spontaneous bacterial peritonitis (principal); K76.6 Portal hypertension; I85.00 Esophageal varices without bleeding; J90 Pleural effusion, not elsewhere classified; Z79.4 Long term (current) use of insulin; B18.2 Chronic viral hepatitis C; K74.60 Unspecified cirrhosis of liver; B19.20 Unspecified viral hepatitis C without hepatic coma; E11.65 Type 2 diabetes mellitus with hyperglycemia; N18.9 Chronic kidney disease, unspecified; I12.9 Hypertensive chronic kidney disease with stage 1 through stage 4 chronic kidney disease, or unspecified chronic kidney disease; K21.9 Gastro-esophageal reflux disease without esophagitis; R19.7 Diarrhea, unspecified; K76.0 Fatty (change of) liver, not elsewhere classified

== ENCOUNTER 2016-11-09 21:16 | Inpatient (IN) | payer MEDICAID ==
[~2016-11-09] VITALS: Ht 165.1 cm; Wt 110.9 kg
[~2016-11-09 21:16] MED LIST changes: +FLUO20CA25 PO; -FLUO20TA28 PO; +FRSM80T PO; -FURO-129 PO; -OMEP10CA4 PO; -OXYC-474 PO; -SPIR100T3 PO; +SPIR50TA2 PO
[2016-11-09 21:28] VITALS: BP 182/82; PULSE 74; RESP 22; O2SAT 100
--- NOTE | 2016-11-09 22:54 | ED.REPORT ---
HPI-Abd Pain F 40 and Over Date of Service Nov 09, 2016 ED Provider: Bryce Tsai MD A 61 year old female with a medical history including end stage liver disease with anasarca, hepatitis C, diabetes, and hypertension presents to the ED with worsening generalized edema onset a couple of days ago. Associated symptoms include shortness of breath, abdominal pain, reduced urination, and chills. The patient denies other symptoms. She was seen at [facility] five days ago for a scheduled paracentesis but this was deemed unnecessary at that time. The patient takes a diuretic regularly. Nursing Notes Stated Complaint: BODY SWELLING, CHEST PAIN Chief Complaint: General Complaint Nursing Notes Reviewed: Yes Allergies: Coded Allergies: No Known Allergies (Verified Allergy, Unknown, 11/09/16) Scheduled Fluoxetine (Fluoxetine) 20 Mg Capsule 20 MG PO DAILY Furosemide (Furosemide) 40 Mg Tablet 40 MG PO DAILY Insulin Glargine (Lantus U100 Insulin Vial) 100 Unit/Ml Vial 50 UNIT SUBQ BID Propranolol HCl (Propranolol HCl) 10 Mg Tablet 10 MG PO DAILY Spironolactone (Spironolactone) 50 Mg Tablet 50 MG PO DAILY Spironolactone (Spironolactone) 100 Mg Tablet 100 MG PO DAILY General Time Seen by MD: 22:33 Chief Complaint Other (Generalized edema) Hx Obtained From: Patient Arrived By: Walk-in Sudden in Onset?: No Onset Occurred: 3 days ago ("A couple") Symptom Duration: Since onset Progression since Onset: Gradually worsening Location: : Diffuse (Abdominal and chest) Quality: Painful Severity: Current: Moderate Severity: Maximum: Moderate Associated with: Reports: Chest pain, Shortness of breath, Denies: Fever Pertinent Negative: Relieved by nothing Context Related History: Reports: Abdominal surgery Recent Healthcare: Recent doctor visit Past Medical History Past Medical History Notes: Followed by liver specialist [facility]: KAYKAY Melendez PCP: Ngozi Burk, [facility] Past Medical History - Hepatitis C uncertain means of acquisition - 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 Portal hypertension with leg edema and ascites c. Hypervolemic hypotonic hyponatremia secondary to cirrhosis Insulin dependent type 2 diabetes Hypertension GERD End Stage Liver Disease with Anasarca Past Surgical History Reports: Cholecystectomy Family History Negative for heart, liver issues Smoking History Never Smoker Social History Lives with family Alcohol Use: Denies alcohol use Drug Use: Denies drug use Other Social History: Good social support, Local resident Ambulatory Status Independent Review of Systems + Generalized edema Constitutional: Reports: Chills Respiratory: Reports: Shortness of breath, Denies: Non-productive cough GI: Reports: Abdominal pain, Denies: Diarrhea, Vomiting Female: Reports: Urination decreased Complete sys rev & neg: except as marked. Physical Exam Vital Signs Vital Signs (First) Date Time Temp Pulse Resp B/P Pulse Ox O2 Delivery O2 Flow Rate FiO2 11/09/16 21:28 36.5 74 22 182/82 100 Room Air Initial VS: Reviewed Head / Eyes: Atraumatic, Normocephalic ENT: Conjunctiva normal, No scleral icterus Neck: Supple, Full range of motion Skin: Warm, Dry, No cyanosis Neurologic: Alert, Oriented, Nonfocal Psychiatric: Mood/affect normal, Behavior normal, Normal thought content General/Constitutional: Awake, Alert, No acute distress Obese Anasarca present Respiratory / Chest: Breath sounds NL, Breath sounds = bilat, No respiratory distress Cardiovascular: Regular rhythm, Heart sounds NL Heart Rate / Rhythm: Positive: Tachycardia Lower Ext Edema: Positive: Bilateral 3+, Pitting Abdomen: Soft Tenderness/Guarding/Rebound: Positive: Tender diffuse Interpretation & Diagnostics Lab Results Interpretation Result Diagram: 11/09/16 2150 11/10/16 0440 Test 11/09/16 21:50 11/09/16 22:51 11/10/16 01:21 White Blood Count 6.1th/mm3 (3.8-10.1) Red Blood Count 3.56mil/mm3 (3.90-5.20) Hemoglobin 10.4g/dL (12.0-15.6) Hematocrit 29.6% (35.0-46.0) Mean Corpuscular Volume 83.1fL (81-100) Mean Corpuscular Hemoglobin 29.2pg (27.0-35.0) Mean Corpuscular Hemoglobin Concent 35.1% (32.0-37.0) Red Cell Distribution Width 15.3% (12.3-15.4) Platelet Count 97bil/L (150-400) Neutrophils (%) (Auto) 64.9% (40-74) Lymphocytes (%) (Auto) 21.3% (14-46) Monocytes (%) (Auto) 7.7% (4-12) Eosinophils (%) (Auto) 5.6% (0-5) Basophils (%) (Auto) 0.3% (0-3) Hold Purple Top Tube Received (Received) Hold Blue Top Tube Received (Received) Lactic Acid Level 1.3mmol/L (0.4-2.0) Magnesium Level 2.2mg/dL (1.6-2.6) Lipase 54U/L (13-60) Hold [place] Top Tube Received (Received) Prothrombin Time 11.1sec (8.1-12.5) Prothromb Time International Ratio 1.04ratio Urine Color Yellow (YELLOW) Urine Appearance Clear (CLEAR,HAZY) Urine pH 6.0 (5.0-8.0) Urine Specific Mineral 1.020 (1.003-1.035) Urine Protein 100mg/dL (NEG,TRACE) Urine Glucose (UA) Negativemg/dL (NEGATIVE) Urine Ketones Negativemg/dL (NEGATIVE) Urine Occult Blood Large (NEGATIVE) Urine Nitrite Negative (NEGATIVE) Urine Bilirubin Negative (NEGATIVE) Urine Urobilinogen Normalmg/dL (NORMAL) Urine Leukocyte Esterase Negative (NEGATIVE) Urine RBC 11-50/hpf (0-2) Urine WBC 0-5/hpf (0-5) Urine Epithelial Cells Occasional/hpf (NONE-MOD) Urine Crystals None seen (NONE SEEN) Urine Bacteria Few/hpf (NONE-FEW) Urine Hyaline Casts None/lpf (NONE) Urine Granular Casts None seen (NONE SEEN) Urine Waxy Casts None seen (NONE SEEN) Urine Red Blood Cell Casts None seen (NONE SEEN) Urine White Blood Cell Casts None seen (NONE SEEN) Urine Mucus None seen (None Seen) Urine Trichomonas None seen (NONE SEEN) Urine Yeast None (NONE SEEN) Urinalysis Comment Amorphous sediment Urine Culture Reflexed Not indicated Lab Results Interpretation: Chronic anemia, hyperkalemia, chronic kidney disease, elevated ammonia, abnormal liver tests. ECG Interpretation ECG Interpretation: Sinus rhythm rate 72 Left anterior fascicular block Low voltage, precordial leads Time: 22:34 Interpreted by: ED physician X-Ray Chest Interpretation Chest Xray Interpretation: Enlarged heart Prominent vascularity View: Portable, 1 view Interpretation / Wet Read by: Wet read ED physician CT Abd / Pelvis Interpretation CONCLUSION: Advanced cirrhotic liver changes, with mild ascites, mild splenomegaly, and anasarca. Status post cholecystectomy. No small bowel obstruction. Appendix not identified. Small pleural effusions with adjacent areas of atelectasis. Transmitted to ED by Bill Boston M.D. at 11/10/2016 - 4:07:30 AM PDT Study type: Abdominal CT no contrast Interpretation / Wet Read by: Interpret - Radiologist Re-Eval/Medical Decision Med Decision/Clinical Course 61-year-old female with anasarca related to chronic liver failure and CHF. She was started on diuresis. She will be admitted for further evaluation and likely ultrasound guided paracentesis. Source of Hx: Old records Re-Evaluation/Progress : Time of Eval: 03:26 Patient Status: Condition improved, Pain improved Re-Evaluation/Progress Note: Discussed with patient x-ray and lab results, diagnosis, and plan for admit. Patient agrees with plan for care and all questions were addressed. Consultation : Referral / Consult Name: Kenya Dominguez DO Consulted With: Hospitalist Call Returned at: 03:14 [place]: Agrees with eval, Agrees with plan, Accepts admit Counseled Regarding: Diagnosis, Lab results, Need for admission Discharge & Departure Primary Impression: Anasarca Additional Impressions: Hyperkalemia Liver failure Liver failure chronicity: chronic Hepatic coma status: without hepatic coma Qualified Code: K72.10 - Chronic hepatic failure without coma Hepatic encephalopathy Disposition: ADMITTED TO HOSPITAL Discharge Condition All VS Reviewed: Yes Condition: Improved Referrals: OTHER,PHYSICIAN (PCP) Scribe Attestation Portions of this note were transcribed by Marlen Cano. I, Dr. Tsai, personally performed the history, physical exam, and medical decision-making; I reviewed and confirmed the accuracy of the information in the transcribed note. Signed by: Urszula Pandya, 11/10/2016, 04:50 Bryce Tsai MD Nov 09, 2016 22:54 MARLEN CANO Nov 09, 2016 23:03 (NONE SEEN) Urine Yeast None (NONE SEEN) Urinalysis Comment Amorphous sediment Urine Culture Reflexed Not indicated ECG Interpretation ECG Interpretation: Sinus rhythm rate 72 Left anterior fascicular block Low voltage, precordial leads Time: 22:34 Interpreted by: ED physician X-Ray Chest Interpretation Chest Xray Interpretation: Enlarged heart Prominent vascularity View: Portable, 1 view Interpretation / Wet Read by: Wet read ED physician CT Abd / Pelvis Interpretation CONCLUSION: Advanced cirrhotic liver changes, with mild ascites, mild splenomegaly, and anasarca. Status post cholecystectomy. No small bowel obstruction. Appendix not identified. Small pleural effusions with adjacent areas of atelectasis. Transmitted to ED by Bill Boston M.D. at 11/10/2016 - 4:07:30 AM PDT Study type: Abdominal CT no contrast Interpretation / Wet Read by: Interpret - Radiologist Re-Eval/Medical Decision Source of Hx: Old records Re-Evaluation/Progress : Time of Eval: 03:26 Patient Status: Condition improved, Pain improved Re-Evaluation/Progress Note: Discussed with patient x-ray and lab results, diagnosis, and plan for admit. Patient agrees with plan for care and all questions were addressed. Consultation : Referral / Consult Name: Kenya Dominguez DO Consulted With: Hospitalist Call Returned at: 03:14 [place]: Agrees with eval, Agrees with plan, Accepts admit Counseled Regarding: Diagnosis, Lab results, Need for admission Discharge & Departure Primary Impression: Anasarca Additional Impressions: Hyperkalemia Liver failure Liver failure chronicity: chronic Hepatic coma status: without hepatic coma Qualified Code: K72.10 - Chronic hepatic failure without coma Hepatic encephalopathy Disposition: ADMITTED TO HOSPITAL Discharge Condition All VS Reviewed: Yes Condition: Improved Referrals: OTHER,PHYSICIAN (PCP) Scribe Attestation Portions of this note were transcribed by Marlen Cano. I, Dr. Tsai, personally performed the history, physical exam, and medical decision-making; I reviewed and confirmed the accuracy of the information in the transcribed note. Signed by: Urszula Pandya, 11/10/2016, 04:50 Bryce Tsai MD Nov 09, 2016 22:54 MARLEN CANO Nov 09, 2016 23:03
[2016-11-09 23:26] LABS: INR 1.04 ratio
[2016-11-09 23:26] LABS: BASOPHILS % (AUTO) 0.3 % (0-3); EOSINOPHILS % (AUTO) 5.6 % (0-5); MONOCYTES % (AUTO) 7.7 % (4-12); Mean Corpuscular Hemoglobin 29.2 pg (27.0-35.0); Mean Corpuscular Volume 83.1 fL (81-100); NEUTROPHILS % (AUTO) 64.9 % (40-74); Platelet Count 97 bil/L (150-400)
[2016-11-09 23:32] LABS: Magnesium 2.2 mg/dL (1.6-2.6)
[2016-11-10] VITALS (12 sets, daily range): BP systolic 136–180; BP diastolic 60–76; PULSE 63–78; RESP 16–19; O2SAT 92–100
[2016-11-10] MEDS ORDERED: Furosemide 10 mg/mL 10 mL Inj IVPUSH ONE (00:35)
[2016-11-10 01:58] LABS: APPEARANCE,URINE CLEAR (CLEAR,HAZY); COLOR,URINE YELLOW (YELLOW); OCCULT BLOOD,URINE LARGE (NEGATIVE); UROBILINOGEN,URINE NORMAL (NORMAL)
[2016-11-10] MEDS ORDERED: Alum-Mag Hydrox-Simeth 30 mL Suspension PO PRN (03:25)
[2016-11-10] MEDS ORDERED: Polyethylene Glycol (PEG) 17 Gm Powder PO PRN (03:25)
[2016-11-10] MEDS ORDERED: Ondansetron 2 mg/mL 2 mL Inj IVPUSH PRN (03:25)
[2016-11-10] MEDS ORDERED: Furosemide 10 mg/mL 4 mL Inj IVPUSH ONE (04:20)
--- NOTE | 2016-11-10 04:26 | PCM.HPMED ---
Subjective Date of Service Nov 10, 2016 Primary Provider: Admitting Physician: Kenya Dominguez DO Primary Care Physician: Other,Physician Attending Physician: Kenya Dominguez DO Chief Complaint: Abdominal Pain History of Present Illness: Patient is a 61 y.o. Citizen Of [place] speaking only F with past medical history of end stage liver disease with anasarca taking spironolactone and lasix, Hep C, DM II insulin dependent, HTN. She present to ED with worsening generalized edema, anasarca, worsening abdominal pain over the past two days. Patient described diffuse abdominal pain worse with movement associated with reduced urination with increased urgency, shortness of breath, chest pain, fever, chills. Patient denies headache, change in vision, syncope, dysuria. Patient was seen at [facility] 5 days ago was scheduled for a paracentesis that was not determined to be necessary. In the ED patient given 80 mg lasix and had output of 550cc urine. Review of Systems: Comprehensive review of systems conducted and was negative except for the pertinent positives listed above. Allergies Coded Allergies: No Known Allergies (Verified Allergy, Unknown, 11/09/16) Home Medications Fluoxetine (Fluoxetine) 20 Mg Capsule 20 MG PO DAILY Furosemide (Furosemide) 80 Mg Tab 80 MG PO DAILY Insulin Glargine (Lantus U100 Insulin Vial) 100 Unit/Ml Vial 50 UNIT SUBQ BID Spironolactone (Spironolactone) 50 Mg Tablet 50 MG PO DAILY PMH End stage liver disease with anasarca Hepatitis C Thrombocytopenia- due to liver failure Hypervolemic hypotonic hyponatremia due to liver failure Hepatorenal syndrome Insulin dependent type II DM HTN GERD Followed by liver specialist [facility]: KAYKAY Melendez PCP: Ngozi Burk [facility] Surgical History Cholecystectomy Family History No history of Liver disease No history of CAD Social History Hx Alcohol Use: No Hx Substance Use: No Hx Tobacco Use: No Smoking Status: Never Smoker Exam Vital Signs Vital Sign - Last Date Time Temp Pulse Resp B/P Pulse Ox O2 Delivery O2 Flow Rate FiO2 11/10/16 04:16 36.9 74 18 180/76 99 Room Air Exam General: Alert, Oriented X3, Cooperative, No Acute Distress, Morbid Obesity Head: Normocephalic, atraumatic. External ears normal. Eyes: PERRLA, EOMI. Anicteric sclerae. Mouth: Mouth Normal, Mucous Membranes Dry/Healy Neck: Neck supple with full range of motion. No tenderness of spinous process Chest & Lungs: Increased AP diameter, deminished breath sounds as lung bases, poor air movement, Clear to auscultation bilaterally with no crackles, wheezes, or rhonchi. Cardiovascular: Regular Rate/Rhythm, Normal S1, Normal S2, No Murmurs/Rubs/ Gallops Abdomen: Diffusely tender, Anasarca to umbilicus, No masses, Normoactive bowel tones, Soft Musculoskeletal: Normal Range of Motion Extremities: No cyanosis/clubbing/edema bilaterally, peripheral pulses intact bilaterally Neurological: Grossly Neurologically Intact, Normal Speech, Strength Normal 4/ 4 ext, Sensation Intact, Reflexes Normal Psych: Normal mood and affect, no signs of encephalopathy Lab and Diagnostics Result Diagram: 11/09/16214911/09/162149 X-Rays, CTs and MRIs Chest x-Ray Cardiomegaly Cephalization of flow Poor inspiratory film Quality limited by body habitus 12-lead ECG Sinus rhythm rate 72 Left anterior fascicular block Low voltage, precordial leads No signs of ischemia Assessment & Plan Patient is a 61 y.o. Citizen Of [place] speaking only F with past medical history of end stage liver disease with anasarca taking spironolactone and lasix, Hep C, DM II insulin dependent, HTN. She present to ED with worsening generalized edema, anasarca, worsening abdominal pain over the past two days. Patient admitted for abdominal pain in the setting of worsening anasarca and generalized edema. In ED patient given 80 mg Lasix with 550cc urine output. 1. Abdominal Pain, acute - Due to worsening anasarca secondary to end stage liver failure and acute on chronic kidney disease - Patient discharge from hospital August 2016 for worsening edema and suspected SBP, no leukocytosis on admission, lactic acid negative - Continue aggressive diuresis - Measure abdominal pressure - Procalcitonin ordered to r/o underlying bacterial process 2. Hyperkalemia, acute - Patient has history of chronic elevation of potassium secondary to chronic kidney disease, DM II - Continue to diurese as above - Monitor BMP Q4 - Restart insulin dosing per weight 3. Endstage liver disease with Cirrhosis with Ascites secondary to Hep C -Likely the source of her anemia and thrombocytopenia. Currently being followed at recently seen for paracentesis that was not determined to be necessary - Chronic elevation in AST, ALT, Tbili, and Alk Phos, and ammonia - At admission ammonia 209, AST 84 ALT 50 Alk phos 268 -Continue home spironolactone 50mg daily -Will use one dose of IV Lasix 40 mg BID to increase diuresis in the short term. - Continue with IV Lasix 80 mg BID tomorrow and transition to oral Lasix with improvement in generalized edema and anasarca -Monitor serum potassium as above BMP Q4 -Avoid Hepatotoxic medications 4. Chest pain - Chest pain on admission, no ischemic changes on EKG, chest pain currently resolved - Trend Troponin Q6, patient has chronic elevation in troponin range .06-.12 - Repeat CMP - Repeat EKG if chest pain reoccurs 5. Hyponatremia, chronic - hypoervolemic hypotonic hyponatremia due to endstage liver disease with cirrhosis - Repeat CMP - Continue to monitor with serum potassium as above 6.Elevated Creatinine, chronic - Patient's base line Cr. 1.3-1.4 Likely is CKD from Hepatorenal syndrome. --Cr 1.26 on admission to ED - Avoid nephrotoxic agents. -Continue to monitor with serum potassium as above -Consider nephrology consultation if worsens. 7. Type II DM, uncontrolled on admission - Blood glucose on admission 250 - Dose Insulin by weight, patient's home dose Lantus 50 units BID - Give 10 units NPH now - Start HS Lantus this evening 30 units - Start high dose correctional insulin - A1C ordered Chronic Conditions Hypertension - Continue Diuresis as above GERD -Continue home omeprazole 10mg Bowel Regimen PRN CODE STATUS FULL CODE DVT prophylaxis: SQ heparin Patient is admitted under inpatient status with expected length of stay greater than 2 midnights due to severity of presenting symptoms, risk of adverse event, and complexity of treatment plan. Pain Evaluation: Adequate Pain Control VTE Prophylaxis: Sub-Q Heparin (Unfractionated) Resuscitation Status: CPR: Attempt Resuscitation Attending Statement The patient was seen and examined together with house staff on 11/10/16 and I agree with the history, exam and plan as outlined in the note above. BRENT FOY DO Nov 10, 2016 04:26 Kenya Dominguez DO Nov 28, 2016 21:51
[2016-11-10] MEDS ORDERED: Glucose 40% Oral Gel 15 Gm Tube PO PRN (05:05)
[2016-11-10] MEDS ORDERED: Insulin Human NPH 100 Unit/mL 3 mL Inj SUBQ ONE (05:05)
[2016-11-10] MEDS ORDERED: PROP10TA8 PO (05:22)
[2016-11-10] MEDS ORDERED: SPIR100T3 PO (05:22)
[2016-11-10] MEDS ORDERED: FURO40TA4 PO (05:22)
--- NOTE | 2016-11-10 05:56 | NUR ---
Admit Admitted pt from ED to [facility], room 3015. Denies chest pain, having mild sob, denies n/v. Complains of abdominal discomfort due to urge of urination. Pt has an elevated BP, Lasix 40mg administered. CCU nurse measure IAP, with a result of 14-15. MD Dr. Medrano is aware, and no further orders. Will continue to monitor.
[2016-11-10] MEDS: Insulin LISPRO 300 Unit/3 mL Inj SUBQ SCH ×4 (08:14→21:47)
[2016-11-10] MEDS ORDERED: Furosemide 10 mg/mL 10 mL Inj IVPUSH SCH (08:30)
[2016-11-10 09:09] LABS: BASOPHILS % (AUTO) 0.4 % (0-3); EOSINOPHILS % (AUTO) 5.3 % (0-5); Mean Corpuscular Hemoglobin 29.3 pg (27.0-35.0); Mean Corpuscular Volume 83.7 fL (81-100); NEUTROPHILS % (AUTO) 60.6 % (40-74); Platelet Count 82 bil/L (150-400)
--- NOTE | 2016-11-10 09:10 | DRSVH ---
PROCEDURE: X-RAY CHEST ONE VIEW ([id number]) INDICATIONS: history CHF, dyspnea TECHNIQUE: One view of the chest was acquired. COMPARISON: [facility], CR, XR CHEST 2VW, 09/16/2016, 9:26. FINDINGS: Surgical changes and devices: None. Lungs and pleura: No pleural effusions or pneumothorax. Interstitial densities present bilaterally with no significant change. Mediastinum: Mediastinal contours appear normal. Heart size is enlarged. Bones and chest wall: No suspicious bony lesions. Overlying soft tissues appear unremarkable. IMPRESSION: Cardiomegaly and mild edema similar to prior examinations which may be chronic. Correlat e clinically. Dictated by: Efren White RRA Interpreted: Henry Mansfield MD on 11/10/2016 at 9:04 Transcribed by: ERLINDA on 11/10/2016 at 9:10 Approved by: Henry Mansfield M.D. on 11/10/2016 at 17:06
--- NOTE | 2016-11-10 09:15 | DRSVH ---
PROCEDURE: CT ABDOMEN AND PELVIS WITHOUT CONTRAST ([id number]) INDICATIONS: ascites, abd pain TECHNIQUE: Noncontrast 5 mm thick sections acquired from the diaphragms to the symphysis. 5 mm coronal and sagi ttal reformats were then performed. For radiation dose reduction, the following was used: automated exposure control, adjustment of mA and/or kV according to patient size. COMPARISON: [facility], CT, CT ABD PELVIS WO CON, 09/11/2016, 9:42. FINDINGS: Image quality: Breathing motion artifact limits evaluation. ABDOMEN: Lung bases: There is a small right and a trace left pleural effusion. Solid organs: Liver is grossly normal in size. The spleen measures 13.7 cm in length. Gallbladder is surgically absent. Pancreas is normal in contours. No adrenal nodules. Kidneys are normal in size , without hydronephrosis or nephrolithiasis. Peritoneum and bowel: Unenhanced bowel loops demonstrate normal wall thickness and caliber. The appe ndix is nonvisualized. Nodes and vessels: No retroperitoneal or mesenteric adenopathy by size criteria. Aorta and inferior vena cava are normal in caliber. Mild, scattered atheromatous calcifications are present throughout the abdominal aorta. Miscellaneous: No ventral hernias. PELVIS: Genitourinary: Bladder is decompressed and a Maya catheter is present. A moderate amount of gas is present within the nondependent bladder, likely secondary to catheterization. The uterus is grossly u nremarkable. There are bilateral tubal ligation clips. Miscellaneous: No inguinal hernias or adenopathy. There is diffuse soft tissue anasarca. Bones: No suspicious bony lesions. No vertebral body compression fractures. IMPRESSION: 1. Limited study due to breathing motion artifact. 2. No acute intra-abdominal findings. Of note, the appendix is not visualized. 3. Small pleural effusions, ascites, and anasarca consistent with fluid overload. 3. Splenomegaly suggesting portal hypertension. Note: The preliminary [facility] interpretation and the final report are concordant. Dictated by: Anusha Beaulieu M.D. on 11/10/2016 at 9:07 Approved by: Anusha Beaulieu M.D. on 11/10/2016 at 9:14
[2016-11-10] MEDS ORDERED: 0.9% Sodium Chloride 100 ML ONE (09:49)
--- NOTE | 2016-11-10 14:43 | NUR ---
Social Work note - Initial assessment Shania Field is a 61 yr old who was admitted for Anasarca/hyperkalemia, Liver failure. EMR reviewed: Pt has no insurance - UTILITIES OPERATOR called and left RCA a message to explore insurance. Pt's PCP is Ngozi Hidalgo. Readmit score not available. UTILITIES OPERATOR met with pt - introduced d/c planning and explained SW role. Pt is lithuanian speaking - UTILITIES OPERATOR used senior buyer planner. Pt lives at home in [place] with her daughter. She is independent at baseline - no DME. Does not drive - family helps with transport. Pt states she is connected with [facility] clinic for her liver failure. Pt denies any needs, plans to go home at d/c with support from family. Pt does not have DPOA - UTILITIES OPERATOR provided paperwork for DPOA and pt states she will fill it out with family. UTILITIES OPERATOR will follow if needs arise. Plan: Home with family in [facility]. KETURAH Abdi
--- NOTE | 2016-11-10 18:37 | PCM.PNMED ---
Subjective Date of Service Nov 10, 2016 Subjective Patient is uncomfortable due to diffuse anasarca. She was seen with the snaker tractor driver from the hospital she was lying supine in bed with head barely elevated. Most of her discomfort was in her abdominal area. She had no nausea no vomiting no diarrhea. Exam Vital Signs Vital Sign - Last Date Time Temp Pulse Resp B/P Pulse Ox O2 Delivery O2 Flow Rate FiO2 11/10/16 17:33 36.8 77 18 175/70 97 Room Air Intake and Output 11/09/16 11/09/16 11/10/16 Cumulative From/Thru 15:00 23:00 07:00 11/09/16 21:28 - 11/10/16 05:46 Intake Total 0 ml 0 ml Output Total 950 ml 950 ml Balance -950 ml -950 ml Intake Oral 0 ml 0 ml Output Urine Total 950 ml 950 ml # Bowel Movements 0 0 Exam General: Patient is lying supine in bed with head slightly elevated she appears uncomfortable due to her anasarca. HEENT: Head is atraumatic and normocephalic. Eyes: Pupils are equally round and reactive to light and accommodation. Extraocular muscles are intact. Sclera are white, anicteric. Subconjunctival mucosa is pink. Ears and nose are unremarkable. Oropharynx: There is no mucosal lesions, there is no thrush, there is no pharyngitis. Neck: Is supple, there are no nodes, or masses or tenderness. Chest: Is clear to auscultation and percussion. There are no rales, rhonchi, wheezes or rubs. Heart: Rate, rhythm is regular. There is no murmur, rub or gallop. Abdomen: Good bowel sounds are present. Abdomen is soft, nontender, no organomegaly or masses were appreciated. Extremities: Are symmetrical and well perfused. There is no edema, there is no cellulitis, no rash. Neurologic: There are no focal neurological deficits. Cranial nerves II through XII are intact. There are no sensory or motor deficits. Psychiatric: Patients mood is calm and shows no sign of agitation. Genital: Deferred Rectal: Deferred Lab and Diagnostics Result Diagram: 11/10/16 0855 11/10/16 1557 X-Rays, CTs and MRIs PROCEDURE: X-RAY CHEST ONE VIEW ([id number]) INDICATIONS: history CHF, dyspnea TECHNIQUE: One view of the chest was acquired. COMPARISON: [facility], CR, XR CHEST 2VW, 09/16/2016, 9:26. FINDINGS: Surgical changes and devices: None. Lungs and pleura: No pleural effusions or pneumothorax. Interstitial densities present bilaterally with no significant change. Mediastinum: Mediastinal contours appear normal. Heart size is enlarged. Bones and chest wall: No suspicious bony lesions. Overlying soft tissues appear unremarkable. IMPRESSION: Cardiomegaly and mild edema similar to prior examinations which may be chronic. Correlate clinically. Dictated by: Efren White RRA Interpreted: Henry Mansfield MD on 11/10/2016 at 9: 04 Transcribed by: ERLINDA on 11/10/2016 at 9:10 Approved by: Henry Mansfield M.D. on 11/10/2016 at 17:06 12-lead ECG Sinus rhythm rate 72 Left anterior fascicular block Low voltage, precordial leads No signs of ischemia Assessment & Plan Patient is a 61 y.o. [place] Zealander speaking only female with past medical history of end stage liver disease with anasarca taking spironolactone and lasix, Hep C, DM II insulin dependent, HTN. She presented to the [facility] ED with worsening generalized edema, anasarca, worsening abdominal pain over the past two days. Patient was admitted for abdominal pain in the setting of worsening anasarca and generalized edema. In ED patient given 80 mg Lasix with 550cc urine output. 1. Abdominal Pain, acute - Due to worsening anasarca secondary to end stage liver failure and acute on chronic kidney disease - Patient was discharged from [facility] August 2016 after an admission for worsening edema and suspected SBP. There was no leukocytosis on admission, lactic acid negative. - Continue aggressive diuresis with Lasix 80 mg IV every 12 hours - Measure abdominal pressure - Procalcitonin ordered to r/o underlying bacterial process. 2. Hyperkalemia, acute improved today with aggressive diuresis - Patient has history of chronic elevation of potassium secondary to chronic kidney disease, DM II - Continue to diurese as above - Monitor BMP Q4 - Restart insulin dosing per weight 3. Endstage liver disease with Cirrhosis with Ascites secondary to Hep C -Likely the source of her anemia and thrombocytopenia. Currently being followed at recently seen for paracentesis that was not determined to be necessary. - Chronic elevation in AST, ALT, Tbili, and Alk Phos, and ammonia - At admission ammonia 209, AST 84 ALT 50 Alk phos 268 -Continue home spironolactone 50mg daily -Will use one dose of IV Lasix 40 mg BID to increase diuresis in the short term. - Continue with IV Lasix 80 mg BID tomorrow and transition to oral Lasix with improvement in generalized edema and anasarca -Monitor serum potassium as above BMP Q4 -Avoid Hepatotoxic medications 4. Chest pain - Chest pain on admission, no ischemic changes on EKG, chest pain currently resolved - Trend Troponin Q6, patient has chronic elevation in troponin range .06-.12 - Repeat CMP - Repeat EKG if chest pain reoccurs 5. Hyponatremia, chronic - hypoervolemic hypotonic hyponatremia due to endstage liver disease with cirrhosis - Repeat CMP - Continue to monitor with serum potassium as above 6.Elevated Creatinine, chronic - Patient's base line Cr. 1.3-1.4 Likely is CKD from Hepatorenal syndrome. --Cr 1.26 on admission to ED - Avoid nephrotoxic agents. -Continue to monitor with serum potassium as above -Consider nephrology consultation if worsens. 7. Type II DM, uncontrolled on admission - Blood glucose on admission 250 - Dose Insulin by weight, patient's home dose Lantus 50 units BID - Give 10 units NPH now - Start HS Lantus this evening 30 units - Start high dose correctional insulin - A1C ordered Chronic Conditions Hypertension - Continue Diuresis as above GERD -Continue home omeprazole 10mg Bowel Regimen PRN CODE STATUS FULL CODE DVT prophylaxis: SQ heparin Disposition: Patient is likely to be her several days for the management of the above acute conditions. Pain Evaluation: Adequate Pain Control GI Prophylaxis: Proton Pump Inhibitor VTE Prophylaxis: Sub-Q Heparin (Unfractionated) Resuscitation Status: CPR: Attempt Resuscitation AbdulkadirLiban MD Nov 10, 2016 18:37
[2016-11-10 19:17] LABS: APPEARANCE,URINE SLIGHTLY CLOUDY (CLEAR,HAZY); COLOR,URINE DARK YELLOW (YELLOW); OCCULT BLOOD,URINE LARGE (NEGATIVE); UROBILINOGEN,URINE 2 mg/dL (NORMAL)
[2016-11-10] MEDS ORDERED: Heparin 5,000 Unit/mL Inj SUBQ SCH (20:30)
[2016-11-10] MEDS: Furosemide 10 mg/mL 4 mL Inj IVPUSH SCH (21:41)
[2016-11-10] MEDS: Insulin GLARgine 100 Unit/mL Syringe SUBQ SCH (21:47)
[2016-11-11 00:46] VITALS: BP 167/79; PULSE 72; RESP 20; O2SAT 98
[2016-11-11 05:35] VITALS: BP 158/81; PULSE 68; RESP 18; O2SAT 99
--- NOTE | 2016-11-11 05:52 | NUR ---
Uneventful Night: Pt had an uneventful night, no c/o pain, chest pain or SOB. Pt slept most of the night, pleasant and cooperative with care. Family used as frit burner during initial assessment for basic needs.
[2016-11-11 06:36] LABS: BASOPHILS % (AUTO) 0.2 % (0-3); EOSINOPHILS % (AUTO) 5.2 % (0-5); MONOCYTES % (AUTO) 9.8 % (4-12); Mean Corpuscular Hemoglobin 28.7 pg (27.0-35.0); Mean Corpuscular Volume 85.1 fL (81-100); NEUTROPHILS % (AUTO) 59.4 % (40-74); Platelet Count 64 bil/L (150-400)
[2016-11-11 07:59] LABS: Magnesium 1.9 mg/dL (1.6-2.6); Phosphorus 4.6 mg/dL (2.5-4.9)
[2016-11-11] MEDS: Insulin LISPRO 300 Unit/3 mL Inj SUBQ SCH ×4 (08:00→20:58)
[2016-11-11 09:05] VITALS: BP 178/76; PULSE 70; RESP 20; O2SAT 96
[2016-11-11] MEDS: Pantoprazole 40 mg ER24 Tablet PO SCH (09:35)
[2016-11-11] MEDS: Furosemide 10 mg/mL 4 mL Inj IVPUSH SCH (09:35)
[2016-11-11 11:06] VITALS: PULSE 69
--- NOTE | 2016-11-11 12:35 | DRSVH ---
[facility] [address] [place] [address] Echocardiogram Report Name: NILESH SPRINGER Study Date: 11/11/2016 Height: 65 in Hospital Exam Location: [facility] Weight: 254 lb Gender: Female BSA: 2.2 m2 : 1955 Age: 61 yrs BP: 158/81 mmHg Reason For Study: Anasarca Ordering Physician: Performed By: May Vu Interpretation Summary Technically difficult study. Normal left ventricle size with ejection fraction 60-65%. No obvious focal wall motion abnormalities. Assessment of diastolic parameters suggests a pseudonormalization pattern, consistent with elevated filling pressures. Right ventricular systolic pressure is estimated to be 40 mmHg plus the clinically estimated CVP which cannot be estimated on this exam. Moderate pulmonary hypertension. Comparison is made with the echocardiogram of 09-14-16, there has been no significant change. Procedure: A two-dimensional transthoracic echocardiogram with color flow and Doppler was performed. The study quality was technically difficult. Comparison is made with the echocardiogram of 09-14-16. The patient was in normal sinus rhythm during the exam. Left Ventricle: The left ventricle is normal in size. Left ventricular wall thickness is normal. The ejection fraction is estimated to be 60-65%. There are no obvious focal wall motion abnormalities noted but poor endocardial definition reduces the sensitivity for the detection of such. Assessment of diastolic parameters suggests a pseudonormalization pattern, consistent with elevated filling pressures. Right Ventricle: The right ventricle is normal in size, thickness and function. There has been no significant change since the previous study. Atria: Both atria are normal in size. Mitral Valve: The mitral valve is normal in structure and function. There has been no significant change since the previous study. There is trace mitral regurgitation. Aortic Valve: The aortic valve opens well. There has been no significant change since the previous study. No aortic regurgitation is present. Tricuspid Valve: The tricuspid valve is normal in structure and function. There is trace tricuspid regurgitation. Right ventricular systolic pressure is estimated to be 40 mmHg plus the clinically estimated CVP which cannot be estimated on this exam. There is moderate pulmonary hypertension. Pulmonic Valve: The pulmonic valve is not well visualized. Great Vessels: The aortic root is normal size. The inferior vena cava was not visualized. Pericardium/ Pleura There is no pericardial effusion. There is no pleural effusion. MMode/2D Measurements & Calculations LVIDd: 4.7 cm LA dimension: 3.9 cm RA long axis Ao root diam LVIDs: 3.1 cm FS: 33.6 % LA A2 area: 22.6 cm RA area Aortic Jxn IVSd: 0.93 cm LA A4 area: 23.9 cm : 3.0 cm LVPWd: 1.0 cm LA length (vol): 5.5 cm : 20.8 cm LA vol: 82.9 ml RA vol: 64.2 ml LA vol index RA : 29.3 mm/ : 37.8 ml/m2 RVDd major : 5.2 cm LV bonds. diameter/BSA LV sys. diameter/BSA RVD1 (basal) RVD2 (mid) (cm/m^2): 2.2 (cm/m^2): 1.4 : 3.3 cm Doppler Measurements & Calculations Ao V2 max MV E max joe MV E/A: 1.2 TR max joe : 177.2 cm/sec : 129.0 cm/sec Med Peak E' Joe : 314.1 cm/sec Ao max PG MV A max joe TR max PG : 12.6 mmHg : 111.6 cm/sec E/E' med: 21.6 : 39.5 mmHg Ao mean PG MV P1/2t: 70.3 msec Lat Peak E' Joe : 6.6 mmHg E/E' lat: 15.9 E/e' average: 18.8 MV A dur: 0.13 sec MV dec time MV P1/2t max joe Ao V2 mean : 0.23 sec : 120.4 cm/sec MVA(P1/2t): 3.1 cm2 Ao V2 VTI: 46.1 cm Electronically signed by: Mayur Gao on Reading Physician:11/11/2016 12:34 PM
--- NOTE | 2016-11-11 13:41 | NUR ---
NUTRITION ASSESSMENT: ASSESS: 61 YO female admitted for anasarca, hyperkalemia, and ESLD. Pt is eating 0-25% of meals. PMHx: Hep C, liver cirrhosis, HTN, DM type 2, GERD, ESLD and acute on chronic kidney disease. LABS: Reviewed. BUN 38, Cr 1.52, Glu 118, Ca 8.2, AST 58, ALT 37, Alk Phos 188, ALB 2.3, Ammonia 129 (11/10) MEDS: Reviewed. Lasix, spironolactone, insulin. GI: BM x 2 (11/11) CURRENT WT: 115.3 kg. (pt with anasarca so likely not a dry weight) UBW 100 kg. DIET: Diabetic. PO intake 0-25%. EST. NEEDS (BMI, Liver Disease): 0444-4009 kcals (22-25 kcals/kg UBW), 80-120 g protein (0.8-1.2 g/kg UBW) NUTRITION DIAGNOSIS: 1.) Increased nutrient needs related to increased demand for nutrients for disease process as evidenced by chronic end stage liver disease with cirrhosis and hep C. NUTRITION INTERVENTION: 1.) Will add Glucerna BID to encourage adequate kcals/protein intake. MONITOR / EVAL: PO intake, labs, nutritional status. Follow per moderate nutritional risk guidelines.
[2016-11-11] MEDS ORDERED: Albumin 25% 25 GM in IV Premix 1 EACH IV ONE ×2 (17:20→18:45)
[2016-11-11 17:33] VITALS: BP 167/66; PULSE 70; RESP 18; O2SAT 98
--- NOTE | 2016-11-11 18:13 | NUR ---
improved pain/resp status patient reports improvement with her abdominal pain. denies pain throughout shift. reports improvement with her breathing, denies SOB at rest. up to BSC with SBA today. still has 2-3 plus pitting edema in bilateral LE. continue to monitor pain/breathing status.
--- NOTE | 2016-11-11 19:34 | CONS ---
[address] [address] CONSULTATION REPORT PATIENT: NILESH SPRINGER : 1955 MR#: [id number] ADMIT: 11/10/2016 JOB ID: [id number] DATE OF SERVICE: 11/11/2016 REQUESTING PHYSICIAN: Liban Panhcal MD REASON FOR CONSULTATION: Management of abnormal kidney function. CHIEF COMPLAINT: Abdominal pain. PRESENT ILLNESS: This is a 61-year-old, lady with significant past medical history of chronic hepatitis C infection, liver cirrhosis, type 2 diabetes, hypertension, who presented to the hospital with a complaint of worsening lower extremity swelling and abdominal girth. The patient has had chronic lower extremity swelling fluid retention for at least two years. The patient has been on Lasix and Aldactone. However, the symptoms have gotten worse over the past one week. She became more short of breath and fatigued. She reported decreased urine output. According to the patient, she is not aware of having any kidney disease. According to our record, her serum creatinine has ranged between 1.2-1.4. She does have history of longstanding type 2 diabetes and hypertension which has been diagnosed for at least 10 years also. Her initial serum creatinine was 1.26, potassium of 5.7. She received IV Lasix 80 mg twice a day. Her current BMP showed a sodium of 136, potassium of 5.0, chloride 103, bicarb of 19, BUN of 38, creatinine of 1.52. Her blood pressure has been stable throughout the hospitalization. No evidence of hypotension and, matter of fact, she has been hypertensive. She has not received any IV contrast over the past 48 hours. The patient denied history of NSAID use. The patient has no history of kidney stones or vasculitis. She has history of diabetic retinopathy. PAST MEDICAL HISTORY: 1. Chronic hepatitis C. 2. Chronic liver cirrhosis. 3. Anasarca. 4. Ascites. 5. Portal hypertension. 6. Type 2 diabetes, insulin dependent. 7. Diabetic retinopathy status post laser treatment. 8. Hypertension. 9. GERD. PAST SURGICAL HISTORY: Status post cholecystectomy. FAMILY HISTORY: No kidney disease in the family. SOCIAL HISTORY: Denies current use of alcohol, tobacco, or illicit drugs. ALLERGIES: No known drug allergies. REVIEW OF SYSTEMS: A 14-point review of systems was performed. PHYSICAL EXAM: Vitals: Temperature 36.9, pulse 70, respiratory 20, blood pressure 178/76, O2 sat 98% on room air. General appearance: Awake, alert, oriented x3. In no acute distress. Obese. HEENT: No pallor. No jaundice. No JVD. No lymphadenopathy. No thyroid enlargement. Atraumatic, moist mucous membranes. Heart: Regular rhythm. Normal S1, S2. No murmurs, rubs, or gallops. Lungs: Decreased breath sound at bases. No wheezing. No rhonchi. Abdomen: Soft. Moderate distention. Diffuse tenderness. No guarding. No rigidity. No hepatosplenomegaly. Extremities: 2+ edema on the lower extremities. LABORATORY: Sodium 136, potassium 5.0, chloride 103, bicarb 19, BUN 38, creatinine 1.52, glucose 118, calcium 8.2, phosphorus 4.6, magnesium 1.9, total bilirubin 1.8, alkaline phos 188, ProBNP 791, troponin 0.14, TSH 26.65. WBCs 5.2, hemoglobin 8.3, INR 1.04. UA specific gravity 1.015, pH 6.0, 100 protein, packed RBCs, 6-10 WBCs, urine creatinine 136, urine sodium 34. ASSESSMENT: 1. Acute kidney injury on chronic kidney disease. She came in with a serum creatinine of 1.26. Current number is 1.52. Per our record, over the past six months also her kidney function has ranged between 1.2-1.4. She does have significant past medical history of type 2 diabetes with retinopathy and hypertension. Her UA showed microscopic hematuria, pyuria and proteinuria with a urine protein and creatinine ratio of 1.4 g/g. I do not think that hepatorenal syndrome plays a major role in her kidney dysfunction at the moment. I will focus and investigate for secondary glomerulonephritis. I will send serologies including ZHENG, ANCA, complement 3, complement 4, cryoglobulin and anti-GBM, HIV and hepatitis B surface antigen. I will continue only supportive treatment for now. Will continue Lasix 80 mg q.12 h. Will add one dose of metolazone 5 mg x1 for a synergistic effect with loop diuretics. 2. Anasarca, likely multifactorial, including from liver failure, renal insufficiency, and possible diastolic heart failure. 3. Hyperkalemia with metabolic acidosis. Rule out RTA type 4. 4. Hypothyroid. 5. Chronic hepatitis C infection. 6. Liver cirrhosis. 7. Type 2 diabetes. 8. Hypertension. Thank you for the consultation. We will monitor along with you. TROYD
--- NOTE | 2016-11-11 20:24 | PCM.PNMED ---
Subjective Date of Service Nov 11, 2016 Subjective She has more comfortable today and is no longer having any pain. He still complains of significant swelling. She no longer has chest discomfort and her shortness of breath has improved. Exam Vital Signs Vital Sign - Last Date Time Temp Pulse Resp B/P Pulse Ox O2 Delivery O2 Flow Rate FiO2 11/11/16 17:33 36.7 70 18 167/66 98 Room Air Intake and Output 11/10/16 11/10/16 11/11/16 Cumulative From/Thru 15:00 23:00 07:00 11/09/16 21:28 - 11/11/16 06:38 Intake Total 472 ml 300 ml 772 ml Output Total 3050 ml 1900 ml 5900 ml Balance -2578 ml -1600 ml -5128 ml Intake Oral 472 ml 300 ml 772 ml Output Urine Total 3050 ml 1900 ml 5900 ml # Bowel Movements 2 2 4 Exam General: Patient is lying supine in bed with head elevated. She appears much more comfortable comfortable today. HEENT: Head is atraumatic and normocephalic. Eyes: Pupils are equally round and reactive to light and accommodation. Extraocular muscles are intact. Sclera are white, anicteric. Subconjunctival mucosa is pink. Ears and nose are unremarkable. Oropharynx: There is no mucosal lesions, there is no thrush, there is no pharyngitis. Neck: Is supple, there are no nodes, or masses or tenderness. Chest: Is clearer to auscultation and percussion. There are no improved rales. There are no rhonchi, wheezes or rubs. Heart: Rate, rhythm is regular. There is no murmur, rub or gallop. Abdomen: Good bowel sounds are present. Abdomen is obese, soft, nontender, no organomegaly or masses were appreciated. There is some fluid wave shift and significant amount of subcutaneous edema which has improved today. Extremities: Are symmetrical and well perfused. There is less edema, there is no cellulitis, no rash. Neurologic: There are no focal neurological deficits. Cranial nerves II through XII are intact. There are no sensory or motor deficits. Psychiatric: Patients mood is calm and shows no sign of agitation. Genital: Deferred Rectal: Deferred Lab and Diagnostics Result Diagram: 11/11/1661911/11/16619 Microbiology Name: EMCHUCKBEVERLYDAVIDNILESH Age/Sex: 61/F Attend Dr: Kenya Dominguez Acct: [id number] Unit: [id number] Status: AD[place] [facility] [place] Re11/10/16 Disch: Specimen: [id number] Collected: 11/10/16 Status: COMP Req#: [id number] Received: 11/11/16141 Source: STOOL Sp Desc : Subm Dr: Liban Panchal MD Ordered: WFOBT Comments: Collected by Nurse/Unit? Y/N Y Procedure Result Verified Site Microbiology VANDA OCCULT BLOOD IMMUNOCHEM Final 11/11/16-1431 OCCULT BLD IMMUNOCHEMICAL NEGATIVE REFERENCE INTERVAL NEGATIVE X-Rays, CTs and MRIs PROCEDURE: X-RAY CHEST ONE VIEW ([id number]) INDICATIONS: history CHF, dyspnea TECHNIQUE: One view of the chest was acquired. COMPARISON: [facility], CR, XR CHEST 2VW, 09/16/2016, 9:26. FINDINGS: Surgical changes and devices: None. Lungs and pleura: No pleural effusions or pneumothorax. Interstitial densities present bilaterally with no significant change. Mediastinum: Mediastinal contours appear normal. Heart size is enlarged. Bones and chest wall: No suspicious bony lesions. Overlying soft tissues appear unremarkable. IMPRESSION: Cardiomegaly and mild edema similar to prior examinations which may be chronic. Correlate clinically. Dictated by: Efren White RRA Interpreted: Henry Mansfield MD on 11/10/2016 at 9: 04 Transcribed by: ERLINDA on 11/10/2016 at 9:10 Approved by: Henry Mansfield M.D. on 11/10/2016 at 17:06 12-lead ECG Sinus rhythm rate 72 Left anterior fascicular block Low voltage, precordial leads No signs of ischemia Cardiac Echo Impressions Echocardiogram Report Name: NILESH SPRINGER Study Date: 11/11/2016 Height: 65 in Hospital Exam Location: [facility] Weight: 254 lb Gender: Female BSA: 2.2 m2 : 1955 Age: 61 yrs BP: 158/81 mmHg Reason For Study: Anasarca Ordering Physician: Performed By: May Vu Interpretation Summary Technically difficult study. Normal left ventricle size with ejection fraction 60-65%. No obvious focal wall motion abnormalities. Assessment of diastolic parameters suggests a pseudonormalization pattern, consistent with elevated filling pressures. Right ventricular systolic pressure is estimated to be 40 mmHg plus the clinically estimated CVP which cannot be estimated on this exam. Moderate pulmonary hypertension. Comparison is made with the echocardiogram of 09-14-16, there has been no significant change. Assessment & Plan Patient is a 61 y.o. Czech speaking only female with past medical history of end stage liver disease with anasarca taking spironolactone and lasix, Hep C, DM II insulin dependent, HTN. She presented to the [facility] ED with worsening generalized edema, anasarca, worsening abdominal pain over the past two days. Patient was admitted for abdominal pain in the setting of worsening anasarca and generalized edema. In ED patient given 80 mg Lasix with 550cc urine output. 1. Abdominal Pain, acute - Due to worsening anasarca secondary to end stage liver failure and acute on chronic kidney disease - Patient was discharged from [facility] August 2016 after an admission for worsening edema and suspected SBP. There was no leukocytosis on admission, lactic acid negative. - Continue aggressive diuresis with Lasix 80 mg IV every 12 hours - Procalcitonin ordered to r/o underlying bacterial process. 2. Hyperkalemia, acute, improving with aggressive diuresis - Patient has history of chronic elevation of potassium secondary to chronic kidney disease, DM II - Continue to diurese as above - Monitor BMP - Restart insulin dosing per weight 3. Endstage liver disease with Cirrhosis with Ascites secondary to Hep C -Likely the source of her anemia and thrombocytopenia. Currently being followed at recently seen for paracentesis that was not determined to be necessary. - Chronic elevation in AST, ALT, Tbili, and Alk Phos, and ammonia - At admission ammonia 209, AST 84 ALT 50 Alk phos 268 -Continue home spironolactone 50mg daily -Will continue IV Lasix 40 mg BID to increase diuresis in the short term. - Continue with IV Lasix 80 mg BID tomorrow and transition to oral Lasix with improvement in generalized edema and anasarca -Monitor serum potassium as above BMP Q4 -Avoid Hepatotoxic medications 4. Chest pain - Chest pain on admission, no ischemic changes on EKG, chest pain currently resolved - Trend Troponin Q6, patient has chronic elevation in troponin range .06-.12 - Repeat CMP - Repeat EKG if chest pain reoccurs 5. Hyponatremia, chronic - hypoervolemic hypotonic hyponatremia due to endstage liver disease with cirrhosis - Repeat CMP - Continue to monitor with serum potassium as above 6.Elevated Creatinine, chronic - Patient's base line Cr. 1.3-1.4 Likely is CKD from Hepatorenal syndrome. --Cr 1.26 on admission to ED - Avoid nephrotoxic agents. -Continue to monitor with serum potassium as above -Consider nephrology consultation if worsens. 7. Type II DM, uncontrolled on admission - Blood glucose on admission 250 - Dose Insulin by weight, patient's home dose Lantus 50 units BID - Give 10 units NPH now - Start HS Lantus this evening 30 units - Start high dose correctional insulin - A1C ordered Chronic Conditions Hypertension - Continue Diuresis as above GERD -Continue home omeprazole 10mg Bowel Regimen PRN CODE STATUS FULL CODE DVT prophylaxis: SQ heparin Disposition: Patient is likely to be her several days for the management of the above acute conditions. Pain Evaluation: Adequate Pain Control GI Prophylaxis: Proton Pump Inhibitor VTE Prophylaxis: Sub-Q Heparin (Unfractionated) Resuscitation Status: CPR: Attempt Resuscitation Liban Panchal MD Nov 11, 2016 20:24
[2016-11-11] MEDS ORDERED: Furosemide 10 mg/mL 10 mL Inj IVPUSH SCH (20:30)
[2016-11-11 20:44] VITALS: BP 166/73; PULSE 72; RESP 18; O2SAT 98
[2016-11-11] MEDS: Insulin GLARgine 100 Unit/mL Syringe SUBQ SCH (20:57)
[2016-11-12] VITALS (13 sets, daily range): BP systolic 128–157; BP diastolic 62–78; PULSE 54–71; RESP 16–18; O2SAT 96–99
--- NOTE | 2016-11-12 05:40 | NUR ---
Uneventful Night Pt denies any pain/N/V/fever/chills,breathing comfortably at rest, but SOB with activities. Abdomen "bloating" (but "not pain") since worse edema days ago. Obesity,decreased lung sounds, some crackles at posterior LLs. Tele: [id number] 50s,distant S1 S2. Abdomen distended, soft,mild tenderness at mid quadrant, BT slightly hypoactive. Had 4 large loose greenish-brown stool yesterday per family report, no BM overnight. Slightly jaundice at sclera. Generalized edema at lower extremities (2-3+pitting),arms trace and face. Maya put out dark tea colored urine about 1600ml. VSS. Alert and orientedx3, sleeping comfortably most of night. Frisian speaking,family help with interpreting.
[2016-11-12 06:34] LABS: BASOPHILS % (AUTO) 0 % (0-3); EOSINOPHILS % (AUTO) 4.5 % (0-5); MONOCYTES % (AUTO) 9.9 % (4-12); Mean Corpuscular Hemoglobin 29.1 pg (27.0-35.0); Mean Corpuscular Volume 86.1 fL (81-100); NEUTROPHILS % (AUTO) 59.6 % (40-74); Platelet Count 44 bil/L (150-400)
--- NOTE | 2016-11-12 06:35 | NUR ---
Maya Maya placed at ER on 11/10/2016 per documentation considering for acute measuring urine output, report will be given to day shift RN and pink communication sheet filled out to remind day hospitalist to reassess the need of Maya.
[2016-11-12 06:50] LABS: Magnesium 1.8 mg/dL (1.6-2.6)
[2016-11-12] MEDS ORDERED: Furosemide 10 mg/mL 4 mL Inj IV ONE ×2 (08:30)
[2016-11-12] MEDS ORDERED: Furosemide 10 mg/mL 4 mL Inj IVPUSH SCH (08:30)
[2016-11-12 08:59] LABS: Unsaturated Iron Binding 164.4 ug/dL
[2016-11-12] MEDS: Pantoprazole 40 mg ER24 Tablet PO SCH (09:08)
[2016-11-12] MEDS: Insulin LISPRO 300 Unit/3 mL Inj SUBQ SCH ×4 (09:10→21:48)
--- NOTE | 2016-11-12 09:23 | NUR ---
AM translation/SOB AM translation provided in person by translator and interpreter. Education provided re meds, reassurance regarding SOB. Pt informed of possibly transfusion, is willing to receive units. Pt states to be feeling better from yesterday, states she feels that it's easier to breathe. Bed in low position, upper rails up, call light in reach. Will continue to monitor.
[2016-11-12] MEDS ORDERED: Darbepoetin Alfa 60 mCg/0.3 mL Inj SUBQ ONE (11:05)
--- NOTE | 2016-11-12 11:13 | PCM.PNNEPH ---
Subjective Date of Service Nov 12, 2016 Subjective She is Kiswahili-speaking only. History obtained via cotton broker. She reported that she is breathing better but feeling anxious. Abdominal distention and lower extremity has improved. Blood-tinged urine noted today. Her blood pressure has improved with PO carvedilol. Exam Vital Signs Vital Sign - Last Date Time Temp Pulse Resp B/P Pulse Ox O2 Delivery O2 Flow Rate FiO2 11/12/16 09:21 37.2 58 16 133/68 98 Room Air Intake and Output 11/11/16 11/11/16 11/12/16 Cumulative From/Thru 15:00 23:00 07:00 11/09/16 21:28 - 11/11/16 20:40 Intake Total 1034 ml 1806 ml Output Total 1850 ml 7750 ml Balance -816 ml -5944 ml Intake Oral 950 ml 1722 ml IV Total 84 ml 84 ml Output Urine Total 1850 ml 7750 ml # Bowel Movements 2 6 Exam General appearance: Awake, alert, oriented x3. In no acute distress. Obese. HEENT: No pallor. No jaundice. No JVD. No lymphadenopathy. No thyroid enlargement. Atraumatic, moist mucous membranes. Heart: Regular rhythm. Normal S1, S2. No murmurs, rubs, or gallops. Lungs: Decreased breath sound at bases. No wheezing. No rhonchi. Abdomen: Soft. Moderate distention. no tender. No guarding. No rigidity. No hepatosplenomegaly. Extremities: 1+ edema on the lower extremities. Lab and Diagnostics Result Diagram: 11/12/1661511/12/16615 Microbiology Name: NILESH SPRINGER Age/Sex: 61/F Attend Dr: Kenya Dominguez Acct: [id number] Unit: [id number] Status: [place] [facility] [place] Re11/10/[place] Disch: Specimen: [id number] Collected: 11/10/16 Status: COMP Req#: [id number] Received: 11/11/16 Source: STOOL Sp Desc : Subm Dr: Liban Panchal MD Ordered: WFOBT Comments: Collected by Nurse/Unit? Y/N Y Procedure Result Verified Site Microbiology VANDA OCCULT BLOOD IMMUNOCHEM Final 11/11/16 OCCULT BLD IMMUNOCHEMICAL NEGATIVE REFERENCE INTERVAL NEGATIVE X-Rays, CTs and MRIs PROCEDURE: X-RAY CHEST ONE VIEW ([id number]) INDICATIONS: history CHF, dyspnea TECHNIQUE: One view of the chest was acquired. COMPARISON: [facility], CR, XR CHEST 2VW, 09/16/2016, 9:26. FINDINGS: Surgical changes and devices: None. Lungs and pleura: No pleural effusions or pneumothorax. Interstitial densities present bilaterally with no significant change. Mediastinum: Mediastinal contours appear normal. Heart size is enlarged. Bones and chest wall: No suspicious bony lesions. Overlying soft tissues appear unremarkable. IMPRESSION: Cardiomegaly and mild edema similar to prior examinations which may be chronic. Correlate clinically. Dictated by: Efren White RRA Interpreted: Henry Mansfield MD on 11/10/2016 at 9: 04 Transcribed by: ERLINDA on 11/10/2016 at 9:10 Approved by: Henry Mansfield M.D. on 11/10/2016 at 17:06 12-lead ECG Sinus rhythm rate 72 Left anterior fascicular block Low voltage, precordial leads No signs of ischemia Cardiac Echo Impressions Echocardiogram Report Name: NILESH SPRINGER Study Date: 11/11/2016 Height: 65 in Hospital Exam Location: [facility] Weight: 254 lb Gender: Female BSA: 2.2 m2 : 1955 Age: 61 yrs BP: 158/81 mmHg Reason For Study: Anasarca Ordering Physician: Performed By: May Vu Interpretation Summary Technically difficult study. Normal left ventricle size with ejection fraction 60-65%. No obvious focal wall motion abnormalities. Assessment of diastolic parameters suggests a pseudonormalization pattern, consistent with elevated filling pressures. Right ventricular systolic pressure is estimated to be 40 mmHg plus the clinically estimated CVP which cannot be estimated on this exam. Moderate pulmonary hypertension. Comparison is made with the echocardiogram of 09-14-16, there has been no significant change. Plan Impression 1. Acute kidney injury on chronic kidney disease, stage 3. - Doubt hepatorenal syndrome. - The etiology of CARITO likely due to acute tubular necrosis, also need to rule out secondary glomerulonephritis. - Etiology of chronic kidney disease likely due to diabetic nephropathy and hypertensive nephrosclerosis. - Gross hematuria noted likely due to irritation from the Maya catheter with underlying disease of thrombocytopenia. 2. Anasarca, likely multifactorial, including from liver failure, renal insufficiency,and possible diastolic heart failure. 3. Hyperkalemia with metabolic acidosis. Rule out RTA type 4. 4. Moderate pulmonary hypertension. 4. Hypothyroidism. 5. Chronic hepatitis C infection. 6. Liver cirrhosis. 7. Type 2 diabetes complicated by diabetic retinopathy. 8. Hypertension with hypertensive nephrosclerosis. 9. Worsening anemia and thrombocytopenia. Plan Agreed with the primary team to transfuse 2 units of blood. We will give patient 1 dose of Aranesp 60 g subcutaneous injection. Continue IV Lasix 80 mg twice a day. Start Synthroid 50 g by mouth daily. Continue Coreg 12.5 mg twice a day. Discontinue Maya catheter. Teresita Kamara MD Nov 12, 2016 11:13
[2016-11-12] MEDS: Nystatin 100,000 Unit/Gm 15 Gm Powder TOPICAL SCH ×3 (11:47→21:48)
--- NOTE | 2016-11-12 12:26 | NUR ---
15min post RBC start 15min after starting 1st Unit of RBC. Pt denies discomfort. States "I'm good" Will continue to monitor. Addendum: 11/12/16 at 1228 by VIANNEY BANKS RN Amended: Links added.
--- NOTE | 2016-11-12 14:22 | NUR ---
2nd Unit RBC started at 1420. VS taken just prior. 2nd Unit verified with Myles Gurrola RN. Will continue to monitor.
--- NOTE | 2016-11-12 16:28 | NUR ---
Completion of 2U PRBCs Both units completed at 1615. Pt tolerated it well. IV lasix given in between Units. VSS. Will continue to monitor.
--- NOTE | 2016-11-12 17:29 | NUR ---
José Luis/azalia Pitts. Addendum: 11/12/16 at 2221 by PATO DU RN Patient voided at 2200, 250 ml.
[2016-11-12] MEDS: Ondansetron 2 mg/mL 2 mL Inj IVPUSH PRN (18:10)
[2016-11-12] MEDS: Furosemide 10 mg/mL 4 mL Inj IVPUSH SCH (18:12)
[2016-11-12] MEDS: Insulin GLARgine 100 Unit/mL Syringe SUBQ SCH (21:48)
--- NOTE | 2016-11-12 23:36 | PCM.PNMED ---
Subjective Date of Service Nov 12, 2016 Subjective Patient is feeling a little bit better today. She is still very weak and swollen. She has no other new complaints. Patient was seen after her blood transfusion and she felt better except she still felt a little bit of dizziness. Exam Vital Signs Vital Sign - Last Date Time Temp Pulse Resp B/P Pulse Ox O2 Delivery O2 Flow Rate FiO2 11/12/16 21:43 36.6 54 16 134/64 97 Room Air Intake and Output 11/11/16 11/11/16 11/12/16 Cumulative From/Thru 15:00 23:00 07:00 11/09/16 21:28 - 11/11/16 20:40 Intake Total 1034 ml 1806 ml Output Total 1850 ml 7750 ml Balance -816 ml -5944 ml Intake Oral 950 ml 1722 ml IV Total 84 ml 84 ml Output Urine Total 1850 ml 7750 ml # Bowel Movements 2 6 Exam General: Patient is lying supine in bed with head elevated. She appears more again comfortable today. HEENT: Head is atraumatic and normocephalic. Eyes: Pupils are equally round and reactive to light and accommodation. Extraocular muscles are intact. Sclera are white, anicteric. Subconjunctival mucosa is pink. Ears and nose are unremarkable. Oropharynx: There is no mucosal lesions, there is no thrush, there is no pharyngitis. Neck: Is supple, there are no nodes, or masses or tenderness. Chest: Is clearer to auscultation and percussion. There are no improved rales. There are no rhonchi, wheezes or rubs. Heart: Rate, rhythm is regular. There is no murmur, rub or gallop. Abdomen: Good bowel sounds are present. Abdomen is obese, soft, nontender, no organomegaly or masses were appreciated. There is some fluid wave shift and significant amount of subcutaneous edema which has improved today. Extremities: Are symmetrical and well perfused. There is less edema, there is no cellulitis, no rash. Neurologic: There are no focal neurological deficits. Cranial nerves II through XII are intact. There are no sensory or motor deficits. Psychiatric: Patients mood is calm and shows no sign of agitation. Genital: Deferred Rectal: Deferred Lab and Diagnostics Result Diagram: 11/12/1661511/12/16615 Microbiology Name: EMSheldonALONSO BEVERLYPE Age/Sex: 61/F Attend Dr: Kenya Dominguez Acct: [id number] Unit: [id number] Status: ADM IN Location: [facility] [place] 3015-1 Re11/10/16 Disch: Specimen: [id number] Collected: 11/10/16 Status: COMP Req#: [id number] Received: 11/11/16 Source: STOOL Sp Desc : Subm Dr: Liban Panchal MD Ordered: WFOBT Comments: Collected by Nurse/Unit? Y/N Y Procedure Result Verified Site Microbiology VANDA OCCULT BLOOD IMMUNOCHEM Final 11/11/16-1431 OCCULT BLD IMMUNOCHEMICAL NEGATIVE REFERENCE INTERVAL NEGATIVE X-Rays, CTs and MRIs PROCEDURE: X-RAY CHEST ONE VIEW ([id number]) INDICATIONS: history CHF, dyspnea TECHNIQUE: One view of the chest was acquired. COMPARISON: [facility], CR, XR CHEST 2VW, 09/16/2016, 9:26. FINDINGS: Surgical changes and devices: None. Lungs and pleura: No pleural effusions or pneumothorax. Interstitial densities present bilaterally with no significant change. Mediastinum: Mediastinal contours appear normal. Heart size is enlarged. Bones and chest wall: No suspicious bony lesions. Overlying soft tissues appear unremarkable. IMPRESSION: Cardiomegaly and mild edema similar to prior examinations which may be chronic. Correlate clinically. Dictated by: Efren White RRA Interpreted: Henry Mansfield MD on 11/10/2016 at 9: 04 Transcribed by: ERLINDA on 11/10/2016 at 9:10 Approved by: Henry Mansfield M.D. on 11/10/2016 at 17:06 12-lead ECG Sinus rhythm rate 72 Left anterior fascicular block Low voltage, precordial leads No signs of ischemia Cardiac Echo Impressions Echocardiogram Report Name: NILESH SPRINGER Study Date: 11/11/2016 Height: 65 in Hospital Exam Location: [facility] Weight: 254 lb Gender: Female BSA: 2.2 m2 : 1955 Age: 61 yrs BP: 158/81 mmHg Reason For Study: Anasarca Ordering Physician: Performed By: May Vu Interpretation Summary Technically difficult study. Normal left ventricle size with ejection fraction 60-65%. No obvious focal wall motion abnormalities. Assessment of diastolic parameters suggests a pseudonormalization pattern, consistent with elevated filling pressures. Right ventricular systolic pressure is estimated to be 40 mmHg plus the clinically estimated CVP which cannot be estimated on this exam. Moderate pulmonary hypertension. Comparison is made with the echocardiogram of 09-14-16, there has been no significant change. Assessment & Plan Patient is a 61 y.o. Italian speaking only female with past medical history of end stage liver disease with anasarca taking spironolactone and lasix, Hep C, DM II insulin dependent, HTN. She presented to the [facility] ED with worsening generalized edema, anasarca, worsening abdominal pain over the past two days. Patient was admitted for abdominal pain in the setting of worsening anasarca and generalized edema. In ED patient given 80 mg Lasix with 550cc urine output. 1. Abdominal Pain, acute, improved - Due to worsening anasarca secondary to end stage liver failure and acute on chronic kidney disease - Patient was discharged from [facility] August 2016 after an admission for worsening edema and suspected SBP. There was no leukocytosis on admission, lactic acid negative. - Continue aggressive diuresis with Lasix 80 mg IV every 12 hours - Procalcitonin ordered to r/o underlying bacterial process. 2. Hyperkalemia, acute, improving with aggressive diuresis - Patient has history of chronic elevation of potassium secondary to chronic kidney disease, DM II - Continue to diurese as above - Monitor BMP - Restart insulin dosing per weight 3. Endstage liver disease with Cirrhosis with Ascites secondary to Hep C -Likely the source of her anemia and thrombocytopenia. Currently being followed at recently seen for paracentesis that was not determined to be necessary. - Chronic elevation in AST, ALT, Tbili, and Alk Phos, and ammonia - At admission ammonia 209, AST 84 ALT 50 Alk phos 268 -Continue home spironolactone 50mg daily -Will continue IV Lasix 40 mg BID to increase diuresis in the short term. - Continue with IV Lasix 80 mg BID tomorrow and transition to oral Lasix with improvement in generalized edema and anasarca -Monitor serum potassium as above BMP Q4 -Avoid Hepatotoxic medications 4. Chest pain - Chest pain on admission, no ischemic changes on EKG, chest pain currently resolved - Trend Troponin Q6, patient has chronic elevation in troponin range .06-.12 - Repeat CMP - Repeat EKG if chest pain reoccurs 5. Hyponatremia, chronic - hypoervolemic hypotonic hyponatremia due to endstage liver disease with cirrhosis - Repeat CMP - Continue to monitor with serum potassium as above 6.Elevated Creatinine, chronic - Patient's base line Cr. 1.3-1.4 Likely is CKD from Hepatorenal syndrome. --Cr 1.6 today - Avoid nephrotoxic agents. -Continue to monitor with serum potassium as above -Initiate doctor Camden of nephrology and her consultation and will follow her recommendations. 7. Type II DM, uncontrolled on admission - Blood glucose on admission 250 - Dose Insulin by weight, patient's home dose Lantus 50 units BID - Give 10 units NPH now - Start HS Lantus this evening 30 units - Start high dose correctional insulin - A1C ordered 8. Hypothyroidism - Agree with starting levothyroxine 50 g by mouth daily 9. Anemia likely due to chronic renal disease. - We will transfuse 2 units of packed red blood cells and give Lasix after each unit this should help with patient's anasarca and her overall condition - Aranesp ordered by Dr. Hannah Chronic Conditions Hypertension - Continue Diuresis as above GERD -Continue home omeprazole 10mg Bowel Regimen PRN CODE STATUS FULL CODE DVT prophylaxis: SQ heparin Disposition: Patient is likely to be her several days for the management of the above acute conditions. Dr. Stinson to follow in a.m. Pain Evaluation: Adequate Pain Control GI Prophylaxis: Proton Pump Inhibitor VTE Prophylaxis: Sub-Q Heparin (Unfractionated) VTE Mechanical Devices: Intermittant Pneumatic CD Resuscitation Status: CPR: Attempt Resuscitation Liban Panchal MD Nov 12, 2016 23:36
[2016-11-13] VITALS (8 sets, daily range): BP systolic 117–147; BP diastolic 57–73; PULSE 52–58; RESP 16–18; O2SAT 95–98
[2016-11-13 01:14] LABS: Vitamin D, 25-Hydroxy 14.1 ng/mL (30.0-100.0)
--- NOTE | 2016-11-13 03:56 | NUR ---
Uneventful night Patient denied pain with assessments. Reported feeling light-headed (through family's interpretation), but was steady on feet when she got up to the commode. Vital signs stable. Intentional rounding in place. Family in room overnight.
[2016-11-13 06:49] LABS: Magnesium 1.8 mg/dL (1.6-2.6)
[2016-11-13] MEDS: Furosemide 10 mg/mL 4 mL Inj IVPUSH SCH (07:55)
[2016-11-13] MEDS: Pantoprazole 40 mg ER24 Tablet PO SCH (07:59)
[2016-11-13] MEDS: Insulin LISPRO 300 Unit/3 mL Inj SUBQ SCH ×4 (08:00→20:42)
[2016-11-13] MEDS: Nystatin 100,000 Unit/Gm 15 Gm Powder TOPICAL SCH ×3 (08:00→20:42)
[2016-11-13 08:13] LABS: BASOPHILS % (AUTO) 0.2 % (0-3); EOSINOPHILS % (AUTO) 6.3 % (0-5); MONOCYTES % (AUTO) 7.3 % (4-12); Mean Corpuscular Hemoglobin 28.8 pg (27.0-35.0); Mean Corpuscular Volume 84.7 fL (81-100); NEUTROPHILS % (AUTO) 61.9 % (40-74); Platelet Count 49 bil/L (150-400)
--- NOTE | 2016-11-13 09:23 | PCM.PNMED ---
Subjective Date of Service Nov 13, 2016 Subjective - Pt seen and examined this morning. - History obtained with the help of bi consultant. - She states that she is doing better than yesterday. c/o mild abdominal pain. - She is still swollen and has generalized weakness. Exam Vital Signs Vital Sign - Last Date Time Temp Pulse Resp B/P Pulse Ox O2 Delivery O2 Flow Rate FiO2 11/13/16 08:00 36.8 52 18 117/73 98 Room Air Intake and Output 11/12/16 11/12/16 11/13/16 Cumulative From/Thru 15:00 23:00 07:00 11/09/16 21:28 - 11/13/16 06:52 Intake Total 300 ml 1004 ml 325 ml 3435 ml Output Total 1600 ml 1615 ml 200 ml 60368 ml Balance -1300 ml -611 ml 125 ml -7730 ml Intake Oral 300 ml 480 ml 325 ml 2827 ml IV Total 524 ml 608 ml Output Urine Total 1600 ml 1615 ml 200 ml 40925 ml # Bowel Movements 2 8 Exam General: Patient is lying supine in bed with head elevated. She appears more again comfortable today. HEENT: Head is atraumatic and normocephalic. Eyes: Pupils are equally round and reactive to light and accommodation. Extraocular muscles are intact. Sclera are white, anicteric. Subconjunctival mucosa is pink. Ears and nose are unremarkable. Oropharynx: There is no mucosal lesions, there is no thrush, there is no pharyngitis. Neck: Is supple, there are no nodes, or masses or tenderness. Chest: Is clearer to auscultation and percussion. There are no improved rales. There are no rhonchi, wheezes or rubs. Heart: Rate, rhythm is regular. There is no murmur, rub or gallop. Abdomen: Good bowel sounds are present. Abdomen is obese, soft, nontender, no organomegaly or masses were appreciated. There is some fluid wave shift and significant amount of subcutaneous edema which has improved today. Extremities: Are symmetrical and well perfused. + 2 pedal edema. Neurologic: There are no focal neurological deficits. Cranial nerves II through XII are intact. There are no sensory or motor deficits. Lab and Diagnostics Result Diagram: 11/13/1661111/13/16611 Microbiology Name: NILESH SPRINGER Age/Sex: 61/F Attend Dr: Kenya Dominguez Acct: [id number] Unit: [id number] Status: ADM IN Location: [facility] [place] 3015-1 Re11/10/16 Disch: Specimen: [id number] Collected: 11/10/16 Status: COMP Req#: [id number] Received: 11/11/16 Source: STOOL Sp Desc : Subm Dr: Liban Panchal MD Ordered: WFOBT Comments: Collected by Nurse/Unit? Y/N Y Procedure Result Verified Site Microbiology VANDA OCCULT BLOOD IMMUNOCHEM Final 11/11/16-1431 OCCULT BLD IMMUNOCHEMICAL NEGATIVE REFERENCE INTERVAL NEGATIVE X-Rays, CTs and MRIs PROCEDURE: X-RAY CHEST ONE VIEW ([id number]) INDICATIONS: history CHF, dyspnea TECHNIQUE: One view of the chest was acquired. COMPARISON: [facility], CR, XR CHEST 2VW, 09/16/2016, 9:26. FINDINGS: Surgical changes and devices: None. Lungs and pleura: No pleural effusions or pneumothorax. Interstitial densities present bilaterally with no significant change. Mediastinum: Mediastinal contours appear normal. Heart size is enlarged. Bones and chest wall: No suspicious bony lesions. Overlying soft tissues appear unremarkable. IMPRESSION: Cardiomegaly and mild edema similar to prior examinations which may be chronic. Correlate clinically. Dictated by: Efren White RRA Interpreted: Henry Mansfield MD on 11/10/2016 at 9: 04 Transcribed by: ERLINDA on 11/10/2016 at 9:10 Approved by: Henry Mansfield M.D. on 11/10/2016 at 17:06 12-lead ECG Sinus rhythm rate 72 Left anterior fascicular block Low voltage, precordial leads No signs of ischemia Cardiac Echo Impressions Echocardiogram Report Name: NILESH SPRINGER Study Date: 11/11/2016 Height: 65 in Hospital Exam Location: [facility] Weight: 254 lb Gender: Female BSA: 2.2 m2 : 1955 Age: 61 yrs BP: 158/81 mmHg Reason For Study: Anasarca Ordering Physician: Performed By: May Vu Interpretation Summary Technically difficult study. Normal left ventricle size with ejection fraction 60-65%. No obvious focal wall motion abnormalities. Assessment of diastolic parameters suggests a pseudonormalization pattern, consistent with elevated filling pressures. Right ventricular systolic pressure is estimated to be 40 mmHg plus the clinically estimated CVP which cannot be estimated on this exam. Moderate pulmonary hypertension. Comparison is made with the echocardiogram of 09-14-16, there has been no significant change. Assessment & Plan Patient is a 61 y.o. Guinean speaking only female with past medical history of end stage liver disease with anasarca taking spironolactone and lasix, Hep C, DM II insulin dependent, HTN. She presented to the [facility] ED with worsening generalized edema, anasarca, worsening abdominal pain over the past two days. Patient was admitted for abdominal pain in the setting of worsening anasarca and generalized edema. In ED patient given 80 mg Lasix with 550cc urine output. 1. Abdominal Pain, acute, improved - Due to worsening anasarca secondary to end stage liver failure and acute on chronic kidney disease - Patient was discharged from [facility] August 2016 after an admission for worsening edema and suspected SBP. There was no leukocytosis on admission, lactic acid negative. - Continue aggressive diuresis with Lasix 80 mg IV every 12 hours - Procalcitonin ordered to r/o underlying bacterial process. 2. Hyperkalemia, acute, improving with aggressive diuresis - K today: 4.5 - Patient has history of chronic elevation of potassium secondary to chronic kidney disease, DM II - Continue to diurese as above - Restart insulin dosing per weight 3. Endstage liver disease with Cirrhosis with Ascites secondary to Hep C - Likely the source of her anemia and thrombocytopenia. Currently being followed at recently seen for paracentesis that was not determined to be necessary. - Chronic elevation in AST, ALT, Tbili, and Alk Phos, and ammonia - At admission ammonia 209, AST 84 ALT 50 Alk phos 268 -Continue home spironolactone 50mg daily - Continue with IV Lasix 80 mg BID and decrease to 60 bid tomorrow -Monitor serum potassium as above BMP Q4 -Avoid Hepatotoxic medications 4. Chest pain - Chest pain on admission, no ischemic changes on EKG, chest pain currently resolved 5. Hyponatremia, chronic - Na is now stable - hypoervolemic hypotonic hyponatremia due to endstage liver disease with cirrhosis - Repeat CMP - Continue to monitor with serum potassium as above 6.Elevated Creatinine, chronic - Patient's base line Cr. 1.3-1.4 Likely is CKD from Hepatorenal syndrome. --Cr 1.96 today - Avoid nephrotoxic agents. -Continue to monitor with serum potassium as above -Initiate doctor Camden of nephrology and her consultation and will follow her recommendations. 7. Type II DM, uncontrolled on admission - Blood glucose on admission 250 - Dose Insulin by weight, patient's home dose Lantus 50 units BID - Give 10 units NPH now - Start HS Lantus this evening 30 units - Start high dose correctional insulin 8. Hypothyroidism - Agree with starting levothyroxine 50 g by mouth daily 9. Anemia likely due to chronic renal disease. - We will transfuse 2 units of packed red blood cells and give Lasix after each unit this should help with patient's anasarca and her overall condition - Aranesp ordered by Dr. Hannah Chronic Conditions Hypertension - Continue Diuresis as above GERD -Continue home omeprazole 10mg Bowel Regimen PRN CODE STATUS FULL CODE DVT prophylaxis: SQ heparin Disposition: Patient is likely to be her several days for the management of the above acute conditions. GI Prophylaxis: Proton Pump Inhibitor VTE Prophylaxis: Sub-Q Heparin (Unfractionated) VTE Mechanical Devices: Intermittant Pneumatic CD Resuscitation Status: CPR: Attempt Resuscitation Arash Stinson MD Nov 13, 2016 09:23
[2016-11-13] MEDS ORDERED: Albumin 25% 25 GM in IV Premix 1 EACH IV ONE (11:25)
--- NOTE | 2016-11-13 11:38 | PCM.PNNEPH ---
Subjective Date of Service Nov 13, 2016 Subjective Patient is doing about the same. Blood pressure has been stable. Serum BUN and creatinine continue to rise while being on IV loop diuretics. Exam Vital Signs Vital Sign - Last Date Time Temp Pulse Resp B/P Pulse Ox O2 Delivery O2 Flow Rate FiO2 11/13/16 09:35 36.6 52 16 122/60 95 Room Air Intake and Output 11/12/16 11/12/16 11/13/16 Cumulative From/Thru 15:00 23:00 07:00 11/09/16 21:28 - 11/13/16 06:52 Intake Total 300 ml 1004 ml 325 ml 3435 ml Output Total 1600 ml 1615 ml 200 ml 71024 ml Balance -1300 ml -611 ml 125 ml -7730 ml Intake Oral 300 ml 480 ml 325 ml 2827 ml IV Total 524 ml 608 ml Output Urine Total 1600 ml 1615 ml 200 ml 95193 ml # Bowel Movements 2 8 Exam General appearance: Awake, alert, oriented x3. In no acute distress. Obese. HEENT: No pallor. No jaundice. No JVD. No lymphadenopathy. No thyroid enlargement. Atraumatic, moist mucous membranes. Heart: Regular rhythm. Normal S1, S2. No murmurs, rubs, or gallops. Lungs: Decreased breath sound at bases. No wheezing. No rhonchi. Abdomen: Soft. Moderate distention. no tender. No guarding. No rigidity. No hepatosplenomegaly. Extremities: 1+ edema on the lower extremities. Lab and Diagnostics Result Diagram: 11/13/1661111/13/16611 Microbiology Name: NILESH SPRINGER Age/Sex: 61/F Attend Dr: Kenya Dominguez Acct: [id number] Unit: [id number] Status: ADM IN [place] [facility] [place] 3015-1 Re11/10/16 Disch: Specimen: [id number] Collected: 11/10/16 Status: COMP Req#: [id number] Received: 11/11/16 Source: STOOL Sp Desc : Subm Dr: Liban Panchal MD Ordered: WFOBT Comments: Collected by Nurse/Unit? Y/N Y Procedure Result Verified Site Microbiology VANDA OCCULT BLOOD IMMUNOCHEM Final 11/11/16-1430 OCCULT BLD IMMUNOCHEMICAL NEGATIVE REFERENCE INTERVAL NEGATIVE X-Rays, CTs and MRIs PROCEDURE: X-RAY CHEST ONE VIEW ([id number]) INDICATIONS: history CHF, dyspnea TECHNIQUE: One view of the chest was acquired. COMPARISON: [facility], CR, XR CHEST 2VW, 09/16/2016, 9:26. FINDINGS: Surgical changes and devices: None. Lungs and pleura: No pleural effusions or pneumothorax. Interstitial densities present bilaterally with no significant change. Mediastinum: Mediastinal contours appear normal. Heart size is enlarged. Bones and chest wall: No suspicious bony lesions. Overlying soft tissues appear unremarkable. IMPRESSION: Cardiomegaly and mild edema similar to prior examinations which may be chronic. Correlate clinically. Dictated by: Efren White RRA Interpreted: Henry Mansfield MD on 11/10/2016 at 9: 04 Transcribed by: ERLINDA on 11/10/2016 at 9:10 Approved by: Henry Mansfield M.D. on 11/10/2016 at 17:06 12-lead ECG Sinus rhythm rate 72 Left anterior fascicular block Low voltage, precordial leads No signs of ischemia Cardiac Echo Impressions Echocardiogram Report Name: NILESH SPRINGER Study Date: 11/11/2016 Height: 65 in Hospital Exam Location: [facility] Weight: 254 lb Gender: Female BSA: 2.2 m2 : 1955 Age: 61 yrs BP: 158/81 mmHg Reason For Study: Arielle Ordering Physician: Performed By: May Vu Interpretation Summary Technically difficult study. Normal left ventricle size with ejection fraction 60-65%. No obvious focal wall motion abnormalities. Assessment of diastolic parameters suggests a pseudonormalization pattern, consistent with elevated filling pressures. Right ventricular systolic pressure is estimated to be 40 mmHg plus the clinically estimated CVP which cannot be estimated on this exam. Moderate pulmonary hypertension. Comparison is made with the echocardiogram of 09-14-16, there has been no significant change. Plan Impression 1. Acute kidney injury on chronic kidney disease, stage 3. - Doubt hepatorenal syndrome. - Worsening kidney function with IV loop diuretics. Concerned of low effective circulating volume in the setting of increased total body water. - The etiology of CARITO likely due to acute tubular necrosis, also need to rule out secondary glomerulonephritis. - Etiology of chronic kidney disease likely due to diabetic nephropathy and hypertensive nephrosclerosis. - So far she has low complement 3 and 4 which could be due to liver cirrhosis and/or glomerulonephritis, will order CH50 to confirm. 2. Anasarca, likely multifactorial, including from liver failure, renal insufficiency,and possible diastolic heart failure. 3. Hyperkalemia with metabolic acidosis. Rule out RTA type 4. 4. Moderate pulmonary hypertension. 4. Hypothyroidism. 5. Chronic hepatitis C infection. 6. Liver cirrhosis. 7. Type 2 diabetes complicated by diabetic retinopathy. 8. Hypertension with hypertensive nephrosclerosis. 9. Worsening anemia and thrombocytopenia. Plan hold IV lasix for now. I will repeat UA and microscopic examination of urine will be performed by me. We will give her IV albumin 25% 100 ml 1. Pending serologies. CH50 ordered. Teresita Kamara MD Nov 13, 2016 11:38
[2016-11-13] MEDS ORDERED: 0.9% Sodium Chloride 100 ML ONE (12:13)
--- NOTE | 2016-11-13 13:19 | NUR ---
NUTRITION FOLLOW-UP: ASSESS: 61 YO female admitted for anasarca, hyperkalemia, ESLD, and acute on chronic stage III kidney disease. Per MD, BUN/Cr continue to rise due to pt receiving IV diuretics and wt is trending downward due to diuresis. Pt po intake is improving with pt eating 100% of breakfast today. PMHx: Hep C, liver cirrhosis, HTN, DM type 2, GERD, ESLD and acute on chronic kidney disease. LABS: Reviewed. BUN 49, Cr 1.96, Glu 226, ALT 33, Alk Phos 202, ALB 2.5. MEDS: Reviewed. Lasix, spironolactone, insulin. GI: BM x 2 (11/12) CURRENT WT: 113.1 kg. (pt with anasarca so likely not a dry weight) UBW 100 kg. DIET: Diabetic. PO intake 25-100%, improving. EST. NEEDS (BMI, Liver Disease): 5402-8970 kcals (22-25 kcals/kg UBW), 80-120 g protein (0.8-1.2 g/kg UBW) NUTRITION DIAGNOSIS: 1.) Increased nutrient needs related to increased demand for nutrients for disease process as evidenced by chronic end stage liver disease with cirrhosis and hep C--PERSISTS. NUTRITION INTERVENTION: 1.) Continue to send Glucerna BID to encourage adequate kcals/protein intake. MONITOR / EVAL: PO intake, labs, nutritional status. Follow per moderate nutritional risk guidelines.
[2016-11-13] MEDS ORDERED: Furosemide 10 mg/mL 4 mL Inj IVPUSH SCH (18:00)
--- NOTE | 2016-11-13 18:57 | NUR ---
Dizzy pt c/o dizzyness. ambulates slowly with 1PA and FWW. steady on feet. VSS. aware. IV lasix given in AM only, PM dose was d/c
[2016-11-13] MEDS: Insulin GLARgine 100 Unit/mL Syringe SUBQ SCH (20:41)
[2016-11-14] VITALS (8 sets, daily range): BP systolic 131–155; BP diastolic 55–69; PULSE 51–59; RESP 18–20; O2SAT 97–99
[2016-11-14 06:20] LABS: Magnesium 1.9 mg/dL (1.6-2.6)
[2016-11-14] MEDS: Pantoprazole 40 mg ER24 Tablet PO SCH (08:13)
[2016-11-14] MEDS: Insulin LISPRO 300 Unit/3 mL Inj SUBQ SCH ×4 (08:15→20:39)
[2016-11-14] MEDS: Nystatin 100,000 Unit/Gm 15 Gm Powder TOPICAL SCH ×3 (08:15→20:40)
[2016-11-14] MEDS ORDERED: Furosemide 10 mg/mL 4 mL Inj IVPUSH SCH (08:30)
[2016-11-14] MEDS: Ondansetron 2 mg/mL 2 mL Inj IVPUSH PRN (08:52)
--- NOTE | 2016-11-14 09:34 | PCM.PNMED ---
Subjective Date of Service Nov 14, 2016 Subjective - Pt seen and examined this morning. - She states that she is doing better than yesterday. c/o mild abdominal pain which is better than yesterday. - Denies any chest pain, shortness of breath. Exam Vital Signs Vital Sign - Last Date Time Temp Pulse Resp B/P Pulse Ox O2 Delivery O2 Flow Rate FiO2 11/14/16 05:59 51 11/14/16 05:06 37.0 20 155/64 99 Room Air Intake and Output 11/13/16 11/13/16 11/14/16 Cumulative From/Thru 15:00 23:00 07:00 11/09/16 21:28 - 11/14/16 06:05 Intake Total 109 ml 556 ml 400 ml 4500 ml Output Total 550 ml 350 ml 96700 ml Balance 109 ml 6 ml 50 ml -7565 ml Intake Oral 556 ml 400 ml 3783 ml IV Total 109 ml 717 ml Output Urine Total 550 ml 350 ml 99868 ml # Bowel Movements 0 8 Exam General: Pt is sitting in chair. Appears more comfortable than yesterday. HEENT: Head is atraumatic and normocephalic. Eyes: Pupils are equally round and reactive to light and accommodation. Extraocular muscles are intact. Sclera are white, anicteric. Subconjunctival mucosa is pink. Ears and nose are unremarkable. Oropharynx: There is no mucosal lesions, there is no thrush, there is no pharyngitis. Neck: Is supple, there are no nodes, or masses or tenderness. Chest: Is clearer to auscultation and percussion. There are no improved rales. There are no rhonchi, wheezes or rubs. Heart: Rate, rhythm is regular. There is no murmur, rub or gallop. Abdomen: Good bowel sounds are present. Abdomen is obese, soft, nontender, no organomegaly or masses were appreciated. There is some fluid wave shift and significant amount of subcutaneous edema which has improved today. Extremities: Are symmetrical and well perfused. + 2 pedal edema. Neurologic: There are no focal neurological deficits. Cranial nerves II through XII are intact. There are no sensory or motor deficits. IVs and Medications Medications Reviewed: Medications were reviewed in detail Lab and Diagnostics Result Diagram: 11/13/16 0612 11/14/16 0517 Microbiology Name: NILESH SPRINGER Age/Sex: 61/F Attend Dr: Kenya Dominguez Acct: [id number] Unit: [id number] Status: ADM IN Location: [facility] [place] 3015-1 Re11/10/16 Disch: Specimen: [id number] Collected: 11/10/16-1909 Status: COMP Req#: [id number] Received: 11/11/16141 Source: STOOL Sp Desc : Subm Dr: Liban Panchal MD Ordered: WFOBT Comments: Collected by Nurse/Unit? Y/N Y Procedure Result Verified Site Microbiology VANDA OCCULT BLOOD IMMUNOCHEM Final 11/11/16-1431 OCCULT BLD IMMUNOCHEMICAL NEGATIVE REFERENCE INTERVAL NEGATIVE X-Rays, CTs and MRIs PROCEDURE: X-RAY CHEST ONE VIEW ([id number]) INDICATIONS: history CHF, dyspnea TECHNIQUE: One view of the chest was acquired. COMPARISON: [facility], CR, XR CHEST 2VW, 09/16/2016, 9:26. FINDINGS: Surgical changes and devices: None. Lungs and pleura: No pleural effusions or pneumothorax. Interstitial densities present bilaterally with no significant change. Mediastinum: Mediastinal contours appear normal. Heart size is enlarged. Bones and chest wall: No suspicious bony lesions. Overlying soft tissues appear unremarkable. IMPRESSION: Cardiomegaly and mild edema similar to prior examinations which may be chronic. Correlate clinically. Dictated by: Efren White RRA Interpreted: Henry Mansfield MD on 11/10/2016 at 9: 04 Transcribed by: ERLINDA on 11/10/2016 at 9:10 Approved by: Henry Mansfield M.D. on 11/10/2016 at 17:06 12-lead ECG Sinus rhythm rate 72 Left anterior fascicular block Low voltage, precordial leads No signs of ischemia Cardiac Echo Impressions Echocardiogram Report Name: NILESH SPRINGER Study Date: 11/11/2016 Height: 65 in Hospital Exam Location: [facility] Weight: 254 lb Gender: Female BSA: 2.2 m2 : 1955 Age: 61 yrs BP: 158/81 mmHg Reason For Study: Anasarca Ordering Physician: Performed By: May Vu Interpretation Summary Technically difficult study. Normal left ventricle size with ejection fraction 60-65%. No obvious focal wall motion abnormalities. Assessment of diastolic parameters suggests a pseudonormalization pattern, consistent with elevated filling pressures. Right ventricular systolic pressure is estimated to be 40 mmHg plus the clinically estimated CVP which cannot be estimated on this exam. Moderate pulmonary hypertension. Comparison is made with the echocardiogram of 09-14-16, there has been no significant change. Assessment & Plan Patient is a 61 y.o. Singaporean speaking only female with past medical history of end stage liver disease with anasarca taking spironolactone and lasix, Hep C, DM II insulin dependent, HTN. She presented to the [facility] ED with worsening generalized edema, anasarca, worsening abdominal pain over the past two days. Patient was admitted for abdominal pain in the setting of worsening anasarca and generalized edema. In ED patient given 80 mg Lasix with 550cc urine output. 1. Abdominal Pain, acute, improved - Due to worsening anasarca secondary to end stage liver failure and acute on chronic kidney disease - Patient was discharged from [facility] August 2016 after an admission for worsening edema and suspected SBP. There was no leukocytosis on admission, lactic acid negative. - Lasix on hold bu Research Environmental Engineer. - Procalcitonin ordered to r/o underlying bacterial process. 2. Hyperkalemia, acute, improving with aggressive diuresis - K today: 4.5 - Patient has history of chronic elevation of potassium secondary to chronic kidney disease, DM II - Restart insulin dosing per weight 3. Endstage liver disease with Cirrhosis with Ascites secondary to Hep C - Likely the source of her anemia and thrombocytopenia. Currently being followed at recently seen for paracentesis that was not determined to be necessary. - Chronic elevation in AST, ALT, Tbili, and Alk Phos, and ammonia - At admission ammonia 209, AST 84 ALT 50 Alk phos 268 - Lasix on hold as per Research Environmental Engineer due to worsening creatinine. -Monitor serum potassium as above BMP Q4 -Avoid Hepatotoxic medications 4. Chest pain - Chest pain on admission, no ischemic changes on EKG, chest pain currently resolved 5. Hyponatremia, chronic - Na is now stable - hypoervolemic hypotonic hyponatremia due to endstage liver disease with cirrhosis - Repeat CMP - Continue to monitor with serum potassium as above 6.Elevated Creatinine, chronic - Patient's base line Cr. 1.3-1.4 Likely is CKD from Hepatorenal syndrome. -Cr trending up 2.13 <-- 1.96 - Avoid nephrotoxic agents. -Continue to monitor with serum potassium as above -Initiate doctor [place] of nephrology and her consultation and will follow her recommendations. 7. Type II DM, uncontrolled on admission - Blood glucose on admission 250 - Dose Insulin by weight, patient's home dose Lantus 50 units BID - Give 10 units NPH now - Start HS Lantus this evening 30 units - Start high dose correctional insulin 8. Hypothyroidism - Agree with starting levothyroxine 50 g by mouth daily 9. Anemia likely due to chronic renal disease. - We will transfuse 2 units of packed red blood cells and give Lasix after each unit this should help with patient's anasarca and her overall condition - Aranesp ordered by Dr. Hannah Chronic Conditions Hypertension - Continue Diuresis as above GERD -Continue home omeprazole 10mg Bowel Regimen PRN CODE STATUS FULL CODE DVT prophylaxis: SQ heparin Disposition: Patient is likely to be her several days for the management of the above acute conditions. GI Prophylaxis: Proton Pump Inhibitor VTE Prophylaxis: Sub-Q Heparin (Unfractionated) VTE Mechanical Devices: Intermittant Pneumatic CD Resuscitation Status: CPR: Attempt Resuscitation Arash Stinson MD Nov 14, 2016 09:34
--- NOTE | 2016-11-14 11:54 | NUR ---
Social Work-readiness d/c planning: Data:EMR reviewed. Pt is on day 4 of hospitalization for anasarca per H&P. Pt is not medically stable anticipate 1-2 more days. Pt resides at home with her daughter in [place] and will return there at discharge. Per RN notes, pt has been up independent in her room. Pt's family to provide transports home. No anticipated discharge needs. SW will continue to follow if needs arise. Assessment:Pt who is independent at baseline. Plan:Pt to discharge home when medically stable via POV. No anticipated discharge needs. SW will continue to follow if needs arise. SUZANNE Sofia
[2016-11-14] MEDS ORDERED: Ergocalciferol (Vit D2) 50,000 Unit Capsule PO SCH (12:50)
--- NOTE | 2016-11-14 12:58 | PCM.PNNEPH ---
Subjective Date of Service Nov 14, 2016 Subjective Patient complains of being nauseated. She has no chest pain or shortness of breath. Lower extremity swelling somewhat improved. Her serum creatinine continued to rise gradually, 2.16. Urinalysis performed by renal service to showed microscopic hematuria 30-50 RBCs , no dysmorphic RBCs identified. 5-10 WBCs, many epithelials, few bacteria, granular casts noted but rare. Exam Vital Signs Vital Sign - Last Date Time Temp Pulse Resp B/P Pulse Ox O2 Delivery O2 Flow Rate FiO2 11/14/16 09:38 37.3 54 18 142/58 97 Room Air Intake and Output 11/13/16 11/13/16 11/14/16 Cumulative From/Thru 15:00 23:00 07:00 11/09/16 21:28 - 11/14/16 06:05 Intake Total 109 ml 556 ml 400 ml 4500 ml Output Total 550 ml 350 ml 75999 ml Balance 109 ml 6 ml 50 ml -7565 ml Intake Oral 556 ml 400 ml 3783 ml IV Total 109 ml 717 ml Output Urine Total 550 ml 350 ml 26106 ml # Bowel Movements 0 8 Exam General appearance: Awake, alert, oriented x3. In no acute distress. Obese. HEENT: No pallor. No jaundice. No JVD. No lymphadenopathy. No thyroid enlargement. Atraumatic, moist mucous membranes. Heart: Regular rhythm. Normal S1, S2. No murmurs, rubs, or gallops. Lungs: Decreased breath sound at bases. No wheezing. No rhonchi. Abdomen: Soft. Moderate distention. no tender. No guarding. No rigidity. No hepatosplenomegaly. Extremities: 1+ edema on the lower extremities. Lab and Diagnostics Result Diagram: 11/13/1661111/14/16 0517 Microbiology Name: NILESH SPRINGER Age/Sex: 61/F Attend Dr: Kenya Dominguez Acct: [id number] Unit: [id number] Status: ADM IN Location: [facility] [place] 3015-1 Re11/10/16 Disch: Specimen: [id number] Collected: 11/10/16 Status: COMP Req#: [id number] Received: 11/11/16 Source: STOOL Sp Desc : Subm Dr: Liban Panchal MD Ordered: WFOBT Comments: Collected by Nurse/Unit? Y/N Y Procedure Result Verified Site Microbiology VANDA OCCULT BLOOD IMMUNOCHEM Final 11/11/16-143 OCCULT BLD IMMUNOCHEMICAL NEGATIVE REFERENCE INTERVAL NEGATIVE X-Rays, CTs and MRIs PROCEDURE: X-RAY CHEST ONE VIEW ([id number]) INDICATIONS: history CHF, dyspnea TECHNIQUE: One view of the chest was acquired. COMPARISON: [facility], CR, XR CHEST 2VW, 09/16/2016, 9:26. FINDINGS: Surgical changes and devices: None. Lungs and pleura: No pleural effusions or pneumothorax. Interstitial densities present bilaterally with no significant change. Mediastinum: Mediastinal contours appear normal. Heart size is enlarged. Bones and chest wall: No suspicious bony lesions. Overlying soft tissues appear unremarkable. IMPRESSION: Cardiomegaly and mild edema similar to prior examinations which may be chronic. Correlate clinically. Dictated by: Efren White RRA Interpreted: Henry Mansfield MD on 11/10/2016 at 9: 04 Transcribed by: ERLINDA on 11/10/2016 at 9:10 Approved by: Henry Manfsield M.D. on 11/10/2016 at 17:06 12-lead ECG Sinus rhythm rate 72 Left anterior fascicular block Low voltage, precordial leads No signs of ischemia Cardiac Echo Impressions Echocardiogram Report Name: NILESH SPRINGER Study Date: 11/11/2016 Height: 65 in Hospital Exam Location: [facility] Weight: 254 lb Gender: Female BSA: 2.2 m2 : 1955 Age: 61 yrs BP: 158/81 mmHg Reason For Study: Anasarca Ordering Physician: Performed By: May Vu Interpretation Summary Technically difficult study. Normal left ventricle size with ejection fraction 60-65%. No obvious focal wall motion abnormalities. Assessment of diastolic parameters suggests a pseudonormalization pattern, consistent with elevated filling pressures. Right ventricular systolic pressure is estimated to be 40 mmHg plus the clinically estimated CVP which cannot be estimated on this exam. Moderate pulmonary hypertension. Comparison is made with the echocardiogram of 09-14-16, there has been no significant change. Plan Impression 1. Acute kidney injury on chronic kidney disease, stage 3. - Worsening kidney function with IV loop diuretics. Concerned of low effective circulating volume in the setting of increased total body water. - Urinalysis performed by renal service to showed microscopic hematuria 30-50 RBCs, no dysmorphic RBCs identified. 5-10 WBCs, many epithelials, few bacteria, granular casts noted but rare. - The etiology of CARITO likely due to acute tubular necrosis/overdiuresis, also need to rule out secondary glomerulonephritis. - doubt HRS. - So far she has low complement 3 and 4 which could be due to liver cirrhosis and/or glomerulonephritis, CH50 level -pending. 2. Anasarca, likely multifactorial, including from liver failure, renal insufficiency,and possible diastolic heart failure. 3. Chronic kidney disease likely due to diabetic nephropathy and hypertensive nephrosclerosis. 4. Hyperkalemia with metabolic acidosis. Rule out RTA type 4. 5. Moderate pulmonary hypertension. 6. Hypothyroidism. 7. Bradycardia likely due to beta -vincent. 8. Chronic hepatitis C infection/cirrhosis. 9. Type 2 diabetes complicated by diabetic retinopathy. 10. Hypertension with hypertensive nephrosclerosis. 11. Anemia and chronic disease status post blood transfusion and Aranesp injection. 12. Thrombocytopenia. Plan: Hold IV lasix, IVF, allow her body to equilibrate. d/c coreg given bradycardia. add norvasc 5 mg daily, continue to monitor LE edema. check AM cortisol level. Pending serologies. CH50 ordered. Teresita Kamara MD Nov 14, 2016 12:58 Teresita Kamara MD Nov 14, 2016 12:58
--- NOTE | 2016-11-14 18:02 | NUR ---
Nausea/activity Pt c/o nausea earlier this shift, PRN anti-emetic given via IV with effective results. Pt has been alternating between reclining in bed and sitting in chair at bedside. Blood sugars: 157, 182, & 226. Currently resting comfortably in bed, call light in reach.
[2016-11-14] MEDS: Insulin GLARgine 100 Unit/mL Syringe SUBQ SCH (20:39)
[2016-11-15] VITALS (10 sets, daily range): BP systolic 148–182; BP diastolic 53–76; PULSE 58–75; RESP 18–20; O2SAT 96–99
[2016-11-15] MEDS: Ondansetron 2 mg/mL 2 mL Inj IVPUSH PRN (06:12)
[2016-11-15 07:33] LABS: BASOPHILS % (AUTO) 0.4 % (0-3); EOSINOPHILS % (AUTO) 6.5 % (0-5); MONOCYTES % (AUTO) 9.9 % (4-12); Mean Corpuscular Hemoglobin 29.1 pg (27.0-35.0); Mean Corpuscular Volume 83.2 fL (81-100); NEUTROPHILS % (AUTO) 61.8 % (40-74); Platelet Count 56 bil/L (150-400)
[2016-11-15 07:51] LABS: Magnesium 1.8 mg/dL (1.6-2.6)
[2016-11-15] MEDS ORDERED: Lactulose 20 Gm/30 mL 30 mL Syrup PO STA ×2 (10:17→12:11)
--- NOTE | 2016-11-15 10:21 | NUR ---
Change in mentation Pt noted to be more confused this morning. When asked questions or to lift arm/squeeze hand, pt will just look at person speaking and not respond. Family at bedside and speaking to pt and getting no response. Pt alert, making eye contact and appears to be in no distress. However, she is not talking nor following directions. on unit and in to assess pt. Ammonia level ordered stat as well as Lactulose. Discussed plan with family who verbalize understanding and agree. Addendum: 11/15/16 at 1149 by HECTOR VAZQUEZ RN Ammonia level came back at 278. cookpaged. Pt did take first dose of Lactulose PO without issue.
[2016-11-15] MEDS: Insulin LISPRO 300 Unit/3 mL Inj SUBQ SCH ×4 (10:47→22:00)
[2016-11-15] MEDS: Nystatin 100,000 Unit/Gm 15 Gm Powder TOPICAL SCH ×3 (10:48→22:20)
[2016-11-15] MEDS: Pantoprazole 40 mg ER24 Tablet PO SCH (10:48)
[2016-11-15] MEDS ORDERED: 0.9% Sodium Chloride 1,000 ML IV SCH ×2 (10:55→11:55)
--- NOTE | 2016-11-15 10:59 | PCM.PNMED ---
Subjective Date of Service Nov 15, 2016 Subjective - Pt seen and examined this morning. She is Alert, awake, but appears more confused this morning. Not following commands - Will check ammonia and start on lactulose. Exam Vital Signs Vital Sign - Last Date Time Temp Pulse Resp B/P Pulse Ox O2 Delivery O2 Flow Rate FiO2 11/15/16 10:12 37.1 61 18 169/76 98 Room Air Intake and Output 11/14/16 11/14/16 11/15/16 Cumulative From/Thru 15:00 23:00 07:00 11/09/16 21:28 - 11/15/16 06:29 Intake Total 958 ml 200 ml 5658 ml Output Total 500 ml 250 ml 31506 ml Balance 458 ml -50 ml -7157 ml Intake Oral 958 ml 200 ml 4941 ml IV Total 717 ml Output Urine Total 400 ml 250 ml 50727 ml Emesis 100 ml 100 ml # Bowel Movements 8 Exam General: She appears more confused this morning. Not following commands HEENT: Head is atraumatic and normocephalic. Eyes: Pupils are equally round and reactive to light and accommodation. Extraocular muscles are intact. Sclera are white, anicteric. Subconjunctival mucosa is pink. Ears and nose are unremarkable. Oropharynx: There is no mucosal lesions, there is no thrush, there is no pharyngitis. Neck: Is supple, there are no nodes, or masses or tenderness. Chest: Is clearer to auscultation and percussion. There are no improved rales. There are no rhonchi, wheezes or rubs. Heart: Rate, rhythm is regular. There is no murmur, rub or gallop. Abdomen: Good bowel sounds are present. Abdomen is obese, soft, nontender, no organomegaly or masses were appreciated. There is some fluid wave shift and significant amount of subcutaneous edema which has improved today. Extremities: Are symmetrical and well perfused. + 2 pedal edema. Neurologic: There are no focal neurological deficits. Cranial nerves II through XII are intact. There are no sensory or motor deficits. IVs and Medications Medications Reviewed: Medications were reviewed in detail Lab and Diagnostics Result Diagram: 11/15/1630 11/15/1630 Microbiology Name: NILESH SPRINGER Age/Sex: 61/F Attend Dr: Kenya Dominguez Acct: [id number] Unit: [id number] Status: ADM IN Location: [facility] 3015-1 Re11/10/16 Disch: Specimen: [id number] Collected: 11/10/16 Status: COMP Req#: [id number] Received: 11/11/16 Source: STOOL Sp Desc : Subm Dr: Liban Panchal MD Ordered: WFOBT Comments: Collected by Nurse/Unit? Y/N Y Procedure Result Verified Site Microbiology VANDA OCCULT BLOOD IMMUNOCHEM Final 11/11/16-1431 OCCULT BLD IMMUNOCHEMICAL NEGATIVE REFERENCE INTERVAL NEGATIVE X-Rays, CTs and MRIs PROCEDURE: X-RAY CHEST ONE VIEW ([id number]) INDICATIONS: history CHF, dyspnea TECHNIQUE: One view of the chest was acquired. COMPARISON: [facility], CR, XR CHEST 2VW, 09/16/2016, 9:26. FINDINGS: Surgical changes and devices: None. Lungs and pleura: No pleural effusions or pneumothorax. Interstitial densities present bilaterally with no significant change. Mediastinum: Mediastinal contours appear normal. Heart size is enlarged. Bones and chest wall: No suspicious bony lesions. Overlying soft tissues appear unremarkable. IMPRESSION: Cardiomegaly and mild edema similar to prior examinations which may be chronic. Correlate clinically. Dictated by: Efren White RRA Interpreted: Henry Mansfield MD on 11/10/2016 at 9: 04 Transcribed by: ERLINDA on 11/10/2016 at 9:10 Approved by: Henry Mansfield M.D. on 11/10/2016 at 17:06 12-lead ECG Sinus rhythm rate 72 Left anterior fascicular block Low voltage, precordial leads No signs of ischemia Cardiac Echo Impressions Echocardiogram Report Name: NILESH SPRINGER Study Date: 11/11/2016 Height: 65 in Hospital Exam Location: [facility] Weight: 254 lb Gender: Female BSA: 2.2 m2 : 1955 Age: 61 yrs BP: 158/81 mmHg Reason For Study: Anasarca Ordering Physician: Performed By: May Vu Interpretation Summary Technically difficult study. Normal left ventricle size with ejection fraction 60-65%. No obvious focal wall motion abnormalities. Assessment of diastolic parameters suggests a pseudonormalization pattern, consistent with elevated filling pressures. Right ventricular systolic pressure is estimated to be 40 mmHg plus the clinically estimated CVP which cannot be estimated on this exam. Moderate pulmonary hypertension. Comparison is made with the echocardiogram of 09-14-16, there has been no significant change. Assessment & Plan Patient is a 61 y.o. Montenegrin speaking only female with past medical history of end stage liver disease with anasarca taking spironolactone and lasix, Hep C, DM II insulin dependent, HTN. She presented to the [facility] ED with worsening generalized edema, anasarca, worsening abdominal pain over the past two days. Patient was admitted for abdominal pain in the setting of worsening anasarca and generalized edema. In ED patient given 80 mg Lasix with 550cc urine output. Abdominal Pain, acute, improved - Due to worsening anasarca secondary to end stage liver failure and acute on chronic kidney disease - Patient was discharged from [facility] August 2016 after an admission for worsening edema and suspected SBP. There was no leukocytosis on admission, lactic acid negative. - Lasix on hold bu Compressor Repairer. Endstage liver disease with Cirrhosis with Ascites secondary to Hep C - Likely the source of her anemia and thrombocytopenia. Currently being followed at recently seen for paracentesis that was not determined to be necessary. - Chronic elevation in AST, ALT, Tbili, and Alk Phos, and ammonia - At admission ammonia 209, AST 84 ALT 50 Alk phos 268 - Lasix on hold as per Compressor Repairer due to worsening creatinine. - Monitor serum potassium as above BMP Q4 - Avoid Hepatotoxic medications - More confused this morning. Will check ammonia and start on lactulose. Hyponatremia, chronic - Na decreased to 130 form 135 - hypoervolemic hypotonic hyponatremia due to endstage liver disease with cirrhosis Elevated Creatinine, chronic - Patient's base line Cr. 1.3-1.4 Likely is CKD from Hepatorenal syndrome. - Cr slightly down today: 2.09 <-- 2.13 - Avoid nephrotoxic agents. - Continue to monitor with serum potassium as above Type II DM, uncontrolled on admission - Blood glucose on admission 250 - Dose Insulin by weight, patient's home dose Lantus 50 units BID - Give 10 units NPH now - Start HS Lantus this evening 30 units - Start high dose correctional insulin Hypothyroidism - on levothyroxine 50 g by mouth daily Anemia likely due to chronic renal disease. - s/p 2 units of packed red blood cells - appropriate response. Chronic Conditions Hypertension - Continue Diuresis as above GERD -Continue home omeprazole 10mg Bowel Regimen PRN CODE STATUS FULL CODE DVT prophylaxis: SQ heparin Disposition: Patient is likely to be her several days for the management of the above acute conditions. GI Prophylaxis: Proton Pump Inhibitor VTE Prophylaxis: Sub-Q Heparin (Unfractionated) VTE Mechanical Devices: Intermittant Pneumatic CD Resuscitation Status: CPR: Attempt Resuscitation Arash Stinson MD Nov 15, 2016 10:59
--- NOTE | 2016-11-15 14:02 | PCM.PNNEPH ---
Subjective Date of Service Nov 15, 2016 Subjective Patient became confused this morning. Serum ammonia is 278. Lactulose was started. Serum sodium 130, serum osm 300. Carvedilol was stopped due to bradycardia. Her serum creatinine is trending. According to the family, lower extremity swelling has gone down. Exam Vital Signs Vital Sign - Last Date Time Temp Pulse Resp B/P Pulse Ox O2 Delivery O2 Flow Rate FiO2 11/15/16 10:12 37.1 61 18 169/76 98 Room Air Intake and Output 11/14/16 11/14/16 11/15/16 Cumulative From/Thru 15:00 23:00 07:00 11/09/16 21:28 - 11/15/16 06:29 Intake Total 958 ml 200 ml 5658 ml Output Total 500 ml 250 ml 49294 ml Balance 458 ml -50 ml -7157 ml Intake Oral 958 ml 200 ml 4941 ml IV Total 717 ml Output Urine Total 400 ml 250 ml 15588 ml Emesis 100 ml 100 ml # Bowel Movements 8 Exam General appearance: Awake, confused and unable to follow commands. Obese. HEENT: No pallor. No jaundice. No JVD. No lymphadenopathy. No thyroid enlargement. Atraumatic, moist mucous membranes. Heart: Regular rhythm. Normal S1, S2. No murmurs, rubs, or gallops. Lungs: Decreased breath sound at bases. No wheezing. No rhonchi. Abdomen: Soft. Moderate distention. no tender. No guarding. No rigidity. No hepatosplenomegaly. Extremities: 1+ edema on the lower extremities. Lab and Diagnostics Result Diagram: 11/15/1662911/15/16629 Microbiology Name: RACHEALNILESH Age/Sex: 61/F Attend Dr: Kenya Dominguez Acct: [id number] Unit: [id number] Status: ADM IN Location: [facility] [place] [facility] 3015-1 Re11/10/16 Disch: Specimen: [id number] Collected: 11/10/16 Status: COMP Req#: [id number] Received: 11/11/16 Source: STOOL Sp Desc : Subm Dr: Liban Panchal MD Ordered: WFOBCaridad Comments: Collected by Nurse/Unit? Y/N Y Procedure Result Verified Site Microbiology VANDA OCCULT BLOOD IMMUNOCHEM Final 11/11/16-1430 OCCULT BLD IMMUNOCHEMICAL NEGATIVE REFERENCE INTERVAL NEGATIVE X-Rays, CTs and MRIs PROCEDURE: X-RAY CHEST ONE VIEW ([id number]) INDICATIONS: history CHF, dyspnea TECHNIQUE: One view of the chest was acquired. COMPARISON: [facility], CR, XR CHEST 2VW, 09/16/2016, 9:26. FINDINGS: Surgical changes and devices: None. Lungs and pleura: No pleural effusions or pneumothorax. Interstitial densities present bilaterally with no significant change. Mediastinum: Mediastinal contours appear normal. Heart size is enlarged. Bones and chest wall: No suspicious bony lesions. Overlying soft tissues appear unremarkable. IMPRESSION: Cardiomegaly and mild edema similar to prior examinations which may be chronic. Correlate clinically. Dictated by: Efren White RRA Interpreted: Henry Mansfield MD on 11/10/2016 at 9: 04 Transcribed by: ERLINDA on 11/10/2016 at 9:10 Approved by: Henry Mansfield M.D. on 11/10/2016 at 17:06 12-lead ECG Sinus rhythm rate 72 Left anterior fascicular block Low voltage, precordial leads No signs of ischemia Cardiac Echo Impressions Echocardiogram Report Name: NILESH SPRINGER Study Date: 11/11/2016 Height: 65 in Hospital Exam Location: [facility] Weight: 254 lb Gender: Female BSA: 2.2 m2 : 1955 Age: 61 yrs BP: 158/81 mmHg [facility] Ordering Physician: Performed By: May Vu Interpretation Summary Technically difficult study. Normal left ventricle size with ejection fraction 60-65%. No obvious focal wall motion abnormalities. Assessment of diastolic parameters suggests a pseudonormalization pattern, consistent with elevated filling pressures. Right ventricular systolic pressure is estimated to be 40 mmHg plus the clinically estimated CVP which cannot be estimated on this exam. Moderate pulmonary hypertension. Comparison is made with the echocardiogram of 09-14-16, there has been no significant change. Plan Impression 1. Acute kidney injury on chronic kidney disease, stage 3. - Worsening kidney function with IV loop diuretics. Concerned of low effective circulating volume in the setting of increased total body water. - Urinalysis performed by renal service on November 14 showed microscopic hematuria 30-50 RBCs, no dysmorphic RBCs identified. 5-10 WBCs, many epithelials , few bacteria, granular casts noted but rare. - The etiology of CARITO likely due to acute tubular necrosis/overdiuresis, also need to rule out secondary glomerulonephritis. - doubt HRS. - So far she has low complement 3 and 4 which could be due to liver cirrhosis and/or glomerulonephritis, CH50 level -pending. 2. Anasarca, likely multifactorial, including from liver failure, renal insufficiency,and possible diastolic heart failure. 3. Chronic kidney disease likely due to diabetic nephropathy and hypertensive nephrosclerosis. 4. Hyperkalemia with metabolic acidosis. Rule out RTA type 4. 5. Mental status likely due to hepatic encephalopathy. 6. Moderate pulmonary hypertension. 7. Hypothyroidism. 8. Borderline low crotisol level. 9. Bradycardia likely due to beta -vincent and hypothyroidism. 10. Chronic hepatitis C infection/cirrhosis. 11. Type 2 diabetes complicated by diabetic retinopathy. 12. Hypertension with hypertensive nephrosclerosis. 13. Anemia and chronic disease status post blood transfusion and Aranesp injection. 14. Thrombocytopenia. Plan: Hold IV lasix, IVF, allow her body to equilibrate. continue norvasc 5 mg daily, continue to monitor LE edema. reccommend ACTH stim test given borderline low cortisol level. Pending serologies. CH50 pending. Teresita Kamara MD Nov 15, 2016 14:01
[2016-11-15] MEDS: Lactulose 20 Gm/30 mL 30 mL Syrup PO SCH ×2 (16:14→20:30)
--- NOTE | 2016-11-15 16:26 | NUR ---
Mentation/lactulose/BM Pt continues with confusion, pushing at staff when attempting to give cares. Pt has been taking Lactulose PO via small doses with oral syringe, however she has now began spitting and pursing lips shut while shaking head no. Family at bedside and attempting to convince pt importance on taking medications which has been unsuccessful due to confusion. One small, soft BM this shift thus far. paged re: need for NG tube to ensure Lactulose intake and possible need for restraints due to pt pulling on IV, lines, gown and pushing staff/family away. Addendum: 11/15/16 at 1638 by HECTOR VAZQUEZ RN Order rec'd to place NG tube and place restraints.
--- NOTE | 2016-11-15 18:01 | NUR ---
NG/Lactulose/conversation with family Pt unable to tolerate NG placement and family becoming increasingly uncomfortable with pt's discomfort during procedure. Attempt stopped and discussion opened with youngest son, Dillon and dtr at bedside re: pt's wishes and what the family would like to see happen. Per family, they have never "sat down and discussed it before" and state that it is time. paged due to not tolerating NG placement and order rec'd for a Lactulose enema. stated he will also order a palliative consult.
--- NOTE | 2016-11-15 18:32 | NUR ---
Lactulose Pt's family feels she is "getting better" and states that she is recognizing family members and responding meaningfully. They are requesting that Lactulose be attempted PO before enema given.
[2016-11-15] MEDS: Insulin GLARgine 100 Unit/mL Syringe SUBQ SCH (21:01)
[2016-11-15] MEDS: Lactulose 200 GM/Bottle Enema RECTAL SCH (22:17)
--- NOTE | 2016-11-15 23:34 | NUR ---
lactulose patient refused lactulose po. given enema as documented. tolerated approximately 800ml. moderate stool 45min later. changed linens, applied calmoseptine. in brief. care ongoing. family updated to cares (at bedside)
[2016-11-16] VITALS (9 sets, daily range): BP systolic 137–172; BP diastolic 65–73; PULSE 54–68; RESP 18–20; O2SAT 96–100
[2016-11-16] MEDS: Lactulose 20 Gm/30 mL 30 mL Syrup PO SCH ×6 (00:30→20:18)
[2016-11-16] MEDS: Lactulose 200 GM/Bottle Enema RECTAL SCH ×4 (04:17→20:19)
--- NOTE | 2016-11-16 04:48 | NUR ---
confusion. - enema patient did not tolerate lactulose enema. changed brief of stool, but minimal lactulose fluid retained. patient restless. wants to get oob. unable to reorient. son at bedside. bed alarm and steve alarm on.
--- NOTE | 2016-11-16 05:11 | NUR ---
discomfort patient indicates her left elbow and shoulder are sore. moving restlessly in bed. trying to get out of bed. son at bedside. patient given supportive cares. notified dr lane of above. care ongoing. Addendum: 11/16/16 at 0529 by KYLE ARTHUR RN received order for hydromorphone 1mg ivp. plan to give and evaluate. Addendum: 11/16/16 at 0545 by KYLE ARTHUR RN hydromorphone ordered IM not iv. spoke with family (son). patient is now resting comfortably. plan to hold pain medication at this time.
[2016-11-16] MEDS: HYDROmorphone 1 mg/mL Inj IM ONE ×2 (05:32→05:57)
--- NOTE | 2016-11-16 05:47 | NUR ---
iv access patient's SL iv access leaking. removed. left message with iv therapy for replacement iv. patient is a difficult iv start.
[2016-11-16] MEDS: Insulin LISPRO 300 Unit/3 mL Inj SUBQ SCH ×4 (07:34→20:14)
[2016-11-16] MEDS: Nystatin 100,000 Unit/Gm 15 Gm Powder TOPICAL SCH ×3 (08:02→20:09)
[2016-11-16] MEDS: Pantoprazole 40 mg ER24 Tablet PO SCH (08:02)
--- NOTE | 2016-11-16 09:47 | NUR ---
LOC Patient alert and oriented this morning. Patient new her name, where she was, and was unsure of date, but new it was around October or November. Patient took all medication by mouth including Lactulose. Rectal Lactulose was held do to patient being administered orally. Patient denied pain.
--- NOTE | 2016-11-16 10:36 | PCM.PNNEPH ---
Subjective Date of Service Nov 16, 2016 Subjective The patient was seen today and her chart was reviewed. She has a history of hepatitis C in acute decompensated cirrhosis with associated acute kidney injury secondary to overdiuresis. I would suspect that there may have been a component of hepatorenal syndrome along with the acute kidney injury. This morning she is more alert and oriented. She offers no new complaints and denies any chest pain, shortness of breath, cough or wheezing. His labs showed a sodium of 136, potassium 3.8, chloride 101, bicarbonate of 19, BUN and creatinine were 46 and 1.93 respectively. Her ZHENG was negative as well as for anti-GBM. ANCA is pending, however both C3 and C4 levels are low consistent with some type of active immune process. Cryoglobulins were also pending. From 321 her protein creatinine ratio was about one and I would like to recheck that today. Exam Vital Signs Vital Sign - Last Date Time Temp Pulse Resp B/P Pulse Ox O2 Delivery O2 Flow Rate FiO2 11/16/16 09:48 37.1 68 19 172/73 96 Room Air Intake and Output 11/15/16 11/15/16 11/16/16 Cumulative From/Thru 15:00 23:00 07:00 11/09/16 21:28 - 11/16/16 06:11 Intake Total 216 ml 0 ml 5874 ml Output Total 1 ml 4 ml 60159 ml Balance 215 ml -4 ml -6946 ml Intake Oral 0 ml 0 ml 4941 ml IV Total 216 ml 933 ml Output Urine Total 91566 ml Stool Total 1 ml 4 ml 5 ml Emesis 100 ml # Voids 2 2 4 # Bowel Movements 8 Exam Patient is alert and interactive today. Her sclera are pale. Neck is supple without adenopathy, thyromegaly, or venous distention. Lungs some mild bibasilar rales.. Heart is regular and rhythmical with a soft systolic murmur. Abdomen is soft with some diminished bowel sounds and evidence of free fluid wave. Otherwise the abdomen is flaccid with some hepatosplenomegaly noted. Extremities showed some mild mild to moderate pitting edema more pronounced in the distal versus proximal lower extremities. Skin turgor is good and she has numerous ecchymosis is. Lab and Diagnostics Result Diagram: 11/15/16 0630 11/16/16 0755 Microbiology Name: NILESH SPRINGER Age/Sex: 61/F Attend Dr: Kenya Dominguez Acct: [id number] Unit: [id number] Status: ADM IN Location: [facility] [place] 3015-1 Re11/10/16 Disch: Specimen: [id number] Collected: 11/10/16 Status: COMP Req#: [id number] Received: 11/11/16 Source: STOOL Sp Desc : Subm Dr: Liban Panchal MD Ordered: WFOBT Comments: Collected by Nurse/Unit? Y/N Y Procedure Result Verified Site Microbiology VANDA OCCULT BLOOD IMMUNOCHEM Final 11/11/16-1431 OCCULT BLD IMMUNOCHEMICAL NEGATIVE REFERENCE INTERVAL NEGATIVE X-Rays, CTs and MRIs PROCEDURE: X-RAY CHEST ONE VIEW ([id number]) INDICATIONS: history CHF, dyspnea TECHNIQUE: One view of the chest was acquired. COMPARISON: [facility], CR, XR CHEST 2VW, 09/16/2016, 9:26. FINDINGS: Surgical changes and devices: None. Lungs and pleura: No pleural effusions or pneumothorax. Interstitial densities present bilaterally with no significant change. Mediastinum: Mediastinal contours appear normal. Heart size is enlarged. Bones and chest wall: No suspicious bony lesions. Overlying soft tissues appear unremarkable. IMPRESSION: Cardiomegaly and mild edema similar to prior examinations which may be chronic. Correlate clinically. Dictated by: Efren White RRA Interpreted: Henry Mansfield MD on 11/10/2016 at 9: 04 Transcribed by: ERLINDA on 11/10/2016 at 9:10 Approved by: Henry Mansfield M.D. on 11/10/2016 at 17:06 12-lead ECG Sinus rhythm rate 72 Left anterior fascicular block Low voltage, precordial leads No signs of ischemia Cardiac Echo Impressions Echocardiogram Report Name: NILESH SPRINGER Study Date: 11/11/2016 Height: 65 in Hospital Exam Location: [facility] Weight: 254 lb Gender: Female BSA: 2.2 m2 : 1955 Age: 61 yrs BP: 158/81 mmHg Reason For Study: Anasarca Ordering Physician: Performed By: May Vu Interpretation Summary Technically difficult study. Normal left ventricle size with ejection fraction 60-65%. No obvious focal wall motion abnormalities. Assessment of diastolic parameters suggests a pseudonormalization pattern, consistent with elevated filling pressures. Right ventricular systolic pressure is estimated to be 40 mmHg plus the clinically estimated CVP which cannot be estimated on this exam. Moderate pulmonary hypertension. Comparison is made with the echocardiogram of 09-14-16, there has been no significant change. Plan Impression Impression #1 acute kidney injury secondary to overdiuresis #2 hepatorenal syndrome #3 proteinuria #4 hypertension with hypertensive heart disease and hypertension nephrosclerosis with diastolic dysfunction Recommendations #1 I would like to start on low-dose of spironolactone which will probably benefit both her kidneys and her heart. #2 discontinue Protonix and the face of acute kidney injury We need to continue to follow her lab. Neymar May DO Nov 16, 2016 10:36
--- NOTE | 2016-11-16 10:42 | NUR ---
Palliative Care Palliative Care received verbal order from Dr Peres 11/16/16 to assist with goals of care. Patient is a 61 year old woman with end stage live disease with cirrhosis and ascites secondary to hep c. She was admitted 11/10/16 for care of abdominal pain in the setting of worsening anasarca and generalized edema. Patient lives with her daughter in [place]. Selina Condon (daughter) [phone] Palliative Care to follow. Sheree Black
[2016-11-16 12:08] LABS: Antiproteinase 3 (PR-3) Abs <3.5 U/mL (0.0-3.5); Perinuclear (P-ANCA) <1:20 titer (Neg:<1:20)
--- NOTE | 2016-11-16 12:58 | NUR ---
Palliative care notes [facility] D/A: Met with pt, her dtr's and sister in law who is visiting from [place]. Present also was Jovita, from [employer]. Difficult to discern pt cognitive status as she appears to be following conversation but also uses her utensils in an unusual fashion that could be associated with confusion. Discuss pt liver/kidney disease and the impact of one on the other. Family listens intently and notes that this is the first time that they have heard this information. Pt lives with dtr Beth, in [place], who can be reached at [phone]. Family agrees that best contact for information or to make arrangements is pt eldest dtr Selina who can be reached at [phone]. Family is not sure that pt had DPOA paper work but not that Selina would be in charge of this or have these papers if already completed. Family notes that there are 11 siblings total, 9 live in the [place] and 2 live outside of the country. The rest of the local family very much would like to be involved in further care decisions/hear updates. Most were unable to come today due to work obligations. Family also notes that there is a 6p conference planned today with nephrology. PC offers to meet again on 11/17/16 to go over nephrology information. Family is familiar with the concept of dialysis as pt spouse had dialysis. Dr. Wild notes to family that it is becoming very difficult to balance meds/different bodily systems and indicates that these decisions/needs will become more complicated and difficult as pt illness progresses. Pt seen by Sofia MCCRACKEN at [facility]. She is reachable at [phone], ext [phone], which gets you directly to pt nurse. Pt evidently does not have Hep C. Discuss pt insurance and note that [place] [facility] [place] awaiting approval of Medicaid application. Past notes indicate that that pt is only eligible for [facility]. It may also be possible, according to notes, that pt does not read or write in [place] or [place]. Explained to family that PC would be able to meet with them again on 11/17/16. Gave PC business cards and flyer. Dtr's intend to discuss with rest of sibs and come up with a potential meeting time. Asked them to please attempt to call this worker with meeting time by 1600 today so as to be able to put in request for manager environmental health and safety services. Family would like to meet in conference room. Pt states she is sad and says it is because of how she has felt recently and her current functional status. P: Palliative care to follow. Tracey REBOLLAR, [facility]
--- NOTE | 2016-11-16 13:55 | PCM.CONPAL ---
Date of Service Nov 16, 2016 Date of Hospital Admission: Nov 10, 2016 at 03:35 Date of Palliative Consult: Nov 16, 2016 Requesting Provider: Juan Peres Reason Palliative Care Consult: Goals of Care Discussion Hospital Unit @time of consult: Medical/Pediatric Care Palliative Care Recommendation 61-year-old female with history of cirrhosis (MELD 17, Child Nguyen B) secondary to MOSHER (NOT hepatitis C as is documented elsewhere) followed closely at [facility], admitted here with progressive abdominal discomfort, weakness and anasarca, complicated by acute renal injury associated with diuresis as well as hepatic encephalopathy. Palliative medicine consulted to assist patient and family in determination of goals of care. Per my conversation with her elastic yarn twister on 11/16/16 patient is NOT a candidate for transplant (copies of recent [facility] records are now appended to her paper chart). Patient's elastic yarn twister: Sofia MCCRACKEN/Ph.D. [facility] [address] [place] [address] option 8 (for her nurse Gisela) Summary of palliative recommendations: -Symptom management (Pain/other)- reasonably comfortable at this time with good symptom control on current prn medications per her hospitalist team. -DPOA/Advanced Directives/POLST- per family members, daughter Beth is POA but oldest daughter Selina (with whom the patient lives) is the best contact/has the most information. Apparently, no prior advanced directive or POLST completed. Palliative team plans on additional meetings with family members in the coming days to further explore goals of care, treatment wishes, etc. -Family/emotional support- excellent family support from multiple family members , though language and financial barriers pose problems. 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 Chronic Conditions Hypertension GERD Problems: End of Life Preferences Full code Goals of Care Patient states that she wants to get better, and family supports this, but some lack of understanding of her actual prognosis and options Disposition Probably home with family Resuscitation Status Resuscitation Status: CPR: Attempt Resuscitation POLST Updates/Changes Previous POLST?: No . Advanced Care Planning Address: Durable Power of Jet Dyeing Machine Tender Pain: Mild Symptom management: Nausea, Dyspnea, Pain, Delirium Pt History History of Present Illness Per admission H&P: Patient is a 61 y.o. Nauruan speaking only F with past medical history of end stage liver disease with anasarca taking spironolactone and lasix, Hep C, DM II insulin dependent, HTN. She present to ED with worsening generalized edema, anasarca, worsening abdominal pain over the past two days. Patient described diffuse abdominal pain worse with movement associated with reduced urination with increased urgency, shortness of breath, chest pain, fever, chills. Patient denies headache, change in vision, syncope, dysuria. Patient was seen at [facility] 5 days ago was scheduled for a paracentesis that was not determined to be necessary. In the ED patient given 80 mg lasix and had output of 550cc urine. With diuresis following admission, patient developed acute renal injury with rising creatinine. Diuresis was discontinued and renal functions have been improving. She has had worsening encephalopathy, responsive to lactulose. Nephrology has been consulted, and today I obtained records from [facility] regarding her care there and spoke with her elastic yarn twister (Dr. Sofia Melendez) at length (after the initial meeting with the patient and family). Contrary to documentation here, patient does NOT have a history of hepatitis C and her liver failure is presumed secondary to MOSHER (no other etiology evident following extensive evaluation at [facility]). Patient is followed closely at the [facility] Clinic at [facility] with her next scheduled appointment on 2016. Dr. Melendez noted that patient has chronically decompensated liver disease and struggles with recurrent ascites/edema. She is NOT a transplant candidate. Despite efforts by the [facility] staff to support the patient and her family, there are concerns that she often does not take her medications properly, does not follow appropriate low-sodium diet, etc. Dr. Melendez also noted that the patient chronically complains of dyspnea and for this reason is in the process of being set up for a pulmonary consultation at [facility]. Arranged for meeting with human factors engineer and I was accompanied by palliative GENERAL INTERNAL MEDICINE DOCTOR Ms. Montenegro. We spoke with the patient and 4 family members including daughters, niece and sister. Reviewed her history with family as well as events during this hospitalization. Answered questions they had. Inquired as to her documentation for things such as RUSSEL, advanced directives, etc. Ultimately, agreed to return tomorrow for further discussions with family once I had an opportunity to review her status with her subspecialists and gather further information. 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 Varying levels of understanding regarding her underlying diagnosis of liver disease and prognosis. Reportedly, different family members have different feelings regarding how aggressive her care should be. The family notes that they are meeting this evening with 1st grade teacher for further discussion Social Support: Good support from family members in the area Family expressed interest in possible assistance at home with her ongoing care, but lack of insurance/financial issues are a significant problem Living Situation: As above Palliative Performance Scale PPS Patient Status: Baseline PPS Ambulation: Mainly Sit/Lie PPS Activity: Unable to do most activity PPS Self-Care: Considerable assistance required PPS Intake: Normal or reduced PPS Conscious Level: Full or confusion Performance Scale: 50% POLST at Time of Admission Previous POLST?: No Allergy Allergies Reviewed: Yes Medications Current Medications: Current Medications Amlodipine Besylate 5 mg 5 mg DAILY PO Last administered on 11/16/16 08:02; Admin Dose 5 MG; Start 11/15/16 at 08:30 Sodium Chloride 1,000 ml @ 100 mls/hr Q10H IV; Start 11/15/16 at 10:55; Stop at 10:55; Status DC Sodium Chloride 1,000 ml @ 75 mls/hr [id number] IV Last administered on 11/15/16 12:20; Admin Dose 75 MLS/HR; Start 11/15/16 at 11:55; Stop 11/15/16 at 13:27; Status DC Lactulose 20 gm Q4 PO Last administered on 11/16/16 12:32; Admin Dose 20 GM; Start 11/15/16 at 16:30 Lactulose 200 gm Q6 RECTAL Last administered on 11/16/16 04:17; Admin Dose 200 GM; Start 11/15/16 at 20:30 Spironolactone 25 mg HS PO; Start 11/16/16 at 21:00 Scheduled Fluoxetine (Fluoxetine) 20 Mg Capsule 20 MG PO DAILY Furosemide (Furosemide) 40 Mg Tablet 40 MG PO DAILY Insulin Glargine (Lantus U100 Insulin Vial) 100 Unit/Ml Vial 50 UNIT SUBQ BID Propranolol HCl (Propranolol HCl) 10 Mg Tablet 10 MG PO DAILY Spironolactone (Spironolactone) 50 Mg Tablet 50 MG PO DAILY Spironolactone (Spironolactone) 100 Mg Tablet 100 MG PO DAILY Objective Findings Exam Vital Sign - Last Date Time Temp Pulse Resp B/P Pulse Ox O2 Delivery O2 Flow Rate FiO2 11/16/16 09:48 37.1 68 19 172/73 96 Room Air Intake and Output 11/15/16 11/15/16 11/16/16 Cumulative From/Thru 15:00 23:00 07:00 11/09/16 21:28 - 11/16/16 06:11 Intake Total 216 ml 0 ml 5874 ml Output Total 1 ml 4 ml 50228 ml Balance 215 ml -4 ml -6946 ml Intake Oral 0 ml 0 ml 4941 ml IV Total 216 ml 933 ml Output Urine Total 24683 ml Stool Total 1 ml 4 ml 5 ml Emesis 100 ml # Voids 2 2 4 # Bowel Movements 8 Objective Heavy set female sitting up in chair. At times appeared to be cognitively clear and following/participating in conversations but at other times seemed to be confused. Vital signs noted. Skin is warm and dry. Head and neck exam without acute focal findings. Lungs were clear to auscultation throughout. Heart sounds very distant and regular. Abdomen is obese, soft, without tenderness or peritoneal signs. Lower extremities with tense edema at the ankles. Neurologic nonfocal. Lab/Diagnostics Lab and Imaging results reviewed in detail in EMR. Also reviewed in detail transfer records from [facility] (now appended to her paper chart) Time spent Total time 110 minutes; >50% face to face with patient and family, providing counselling regarding plans and recommendations, and in care coordination with her medical teams, including telephone consultation with her elastic yarn twister in [place]. Overview both total time, 10 minutes counseling for advanced care planning with the patient and her family, clarifying RUSSEL issues, history of advanced directive documentation, etc. Escobar Wild MD Nov 16, 2016 13:55 Escobar Wild MD Nov 16, 2016 13:55
--- NOTE | 2016-11-16 16:31 | PCM.PNMED ---
Subjective Date of Service Nov 16, 2016 Subjective denies any new issues/complaints. does report some ongoing mid-epigastric pain Exam Vital Signs Vital Sign - Last Date Time Temp Pulse Resp B/P Pulse Ox O2 Delivery O2 Flow Rate FiO2 11/16/16 14:02 36.8 60 18 147/69 98 Room Air Intake and Output 11/15/16 11/15/16 11/16/16 Cumulative From/Thru 15:00 23:00 07:00 11/09/16 21:28 - 11/16/16 06:11 Intake Total 216 ml 0 ml 5874 ml Output Total 1 ml 4 ml 36559 ml Balance 215 ml -4 ml -6946 ml Intake Oral 0 ml 0 ml 4941 ml IV Total 216 ml 933 ml Output Urine Total 57326 ml Stool Total 1 ml 4 ml 5 ml Emesis 100 ml # Voids 2 2 4 # Bowel Movements 8 General: Alert, Cooperative, No Acute Distress Head: Normal Eyes: PERRLA, Scleral Anicteric Mouth: Mucous Membr Moist/[place] Neck: Supple Chest & Lungs: Chest Wall Normal, Clear to auscultation & percussion Cardiovascular: Regular Rate/Rhythm Abdomen: Non-tender, Distended (mild), Normoactive bowel tones, Soft Extremities: Edema (2+ pitting edema in LE bilat) Neurological: Grossly Neurologically Intact, Normal Speech IVs and Medications Medications Reviewed: Medications were reviewed in detail Lab and Diagnostics Result Diagram: 11/15/16 0630 11/16/16 0755 Microbiology Name: NILESH SPRINGER Age/Sex: 61/F Attend Dr: Kenya Dominguez Acct: [id number] Unit: [id number] Status: ADM IN Location: [facility] [place] 3015-1 Re11/10/16 Disch: Specimen: [id number] Collected: 11/10/16 Status: COMP Req#: [id number] Received: 11/11/16 Source: STOOL Sp Desc : Subm Dr: Liban Panchal MD Ordered: WFOBT Comments: Collected by Nurse/Unit? Y/N Y Procedure Result Verified Site Microbiology VANDA OCCULT BLOOD IMMUNOCHEM Final 11/11/16-1430 OCCULT BLD IMMUNOCHEMICAL NEGATIVE REFERENCE INTERVAL NEGATIVE X-Rays, CTs and MRIs PROCEDURE: X-RAY CHEST ONE VIEW ([id number]) INDICATIONS: history CHF, dyspnea TECHNIQUE: One view of the chest was acquired. COMPARISON: [facility], CR, XR CHEST 2VW, 09/16/2016, 9:26. FINDINGS: Surgical changes and devices: None. Lungs and pleura: No pleural effusions or pneumothorax. Interstitial densities present bilaterally with no significant change. Mediastinum: Mediastinal contours appear normal. Heart size is enlarged. Bones and chest wall: No suspicious bony lesions. Overlying soft tissues appear unremarkable. IMPRESSION: Cardiomegaly and mild edema similar to prior examinations which may be chronic. Correlate clinically. Dictated by: Efren White RRA Interpreted: Henry Mansfield MD on 11/10/2016 at 9: 04 Transcribed by: ERLINDA on 11/10/2016 at 9:10 Approved by: Henry Mansfield M.D. on 11/10/2016 at 17:06 12-lead ECG Sinus rhythm rate 72 Left anterior fascicular block Low voltage, precordial leads No signs of ischemia Cardiac Echo Impressions Echocardiogram Report Name: NILESH SPRINGER Study Date: 11/11/2016 Height: 65 in Hospital Exam Location: [facility] Weight: 254 lb Gender: Female BSA: 2.2 m2 : 1955 Age: 61 yrs BP: 158/81 mmHg Reason For Study: Anasarca Ordering Physician: Performed By: May Vu Interpretation Summary Technically difficult study. Normal left ventricle size with ejection fraction 60-65%. No obvious focal wall motion abnormalities. Assessment of diastolic parameters suggests a pseudonormalization pattern, consistent with elevated filling pressures. Right ventricular systolic pressure is estimated to be 40 mmHg plus the clinically estimated CVP which cannot be estimated on this exam. Moderate pulmonary hypertension. Comparison is made with the echocardiogram of 09-14-16, there has been no significant change. Assessment & Plan 61 y.o. Occitan speaking only female with past medical history of end stage liver disease with anasarca, Hep C, DM II insulin dependent, HTN. She presented to the [facility] ED with worsening generalized edema, anasarca, worsening abdominal pain over two days. Patient was admitted for abdominal pain in the setting of worsening anasarca and generalized edema. # Acute abdominal Pain, present on admission. improved - Due to worsening anasarca secondary to end stage liver failure and acute on chronic kidney disease - further diuresis per nephrology - consider GI consult in am if abdominal persist # Endstage liver disease with Cirrhosis with Ascites secondary to Hep C - Likely the source of her anemia and thrombocytopenia. Currently being followed at recently seen for paracentesis that was not determined to be necessary. - Chronic elevation in AST, ALT, Tbili, and Alk Phos, and ammonia - At admission ammonia 209 - Lasix on hold as per Nephrology - Avoid Hepatotoxic medications # Acute on chronic hepatic encephalopathy. present on admission. improving - c/w Lactulose. # Acute kidney injury secondary to overdiuresis and hepatorenal syndrome. present on admission. ongoing - appreciate nephrology consult. will f/u w/ recs - low-dose spironolactone per nephrology - f/u BMP # Acute Hyponatremia, poa. Resolved - f/u # Type II DM - c/w Lantus - c/w ISS - f/u # Hypothyroidism - on levothyroxine 50 g by mouth daily # Anemia likely due to chronic renal disease. - s/p 2 units of packed red blood cells - appropriate response. - f/u # Hypertension, chronic. poorly controlled - Continue Diuresis as above # Goals of care - appreciate palliative care consult. will f/u w/ recs Dispo: 2-4 days GI Prophylaxis: Proton Pump Inhibitor VTE Prophylaxis: Sub-Q Heparin (Unfractionated) VTE Mechanical Devices: Intermittant Pneumatic CD Resuscitation Status: CPR: Attempt Resuscitation Time spent 35 min Juan Peres Nov 16, 2016 16:31 Juan Peres Nov 16, 2016 16:31 VTE Mechanical Devices: Intermittant Pneumatic CD Resuscitation Status: CPR: Attempt Resuscitation Juan Peres Nov 16, 2016 16:31 Juan Peres Nov 16, 2016 16:31 Juan Peres Nov 16, 2016 16:31
[2016-11-16] MEDS: Insulin GLARgine 100 Unit/mL Syringe SUBQ SCH (20:14)
[2016-11-17] VITALS (8 sets, daily range): BP systolic 116–132; BP diastolic 52–78; PULSE 56–65; RESP 18–24; O2SAT 95–100
[2016-11-17] MEDS: Lactulose 20 Gm/30 mL 30 mL Syrup PO SCH ×7 (00:30→23:56)
[2016-11-17] MEDS: Lactulose 200 GM/Bottle Enema RECTAL SCH ×5 (02:30→23:56)
--- NOTE | 2016-11-17 05:08 | NUR ---
Refused Lactulose/Uneventful Night: Pt had an uneventful night, no c/o pain, chest pain or SOB. Pt refused lactulose while sleeping but states she will take it in the am with morning medications. Pt slept most of the night, family at bedside, pleasant and cooperative with care. Pt's family translating basic needs at bedside.
[2016-11-17 06:14] LABS: Mean Corpuscular Hemoglobin 29.2 pg (27.0-35.0); Mean Corpuscular Volume 85.4 fL (81-100)
[2016-11-17] MEDS: Insulin LISPRO 300 Unit/3 mL Inj SUBQ SCH ×4 (08:00→21:18)
[2016-11-17] MEDS: Nystatin 100,000 Unit/Gm 15 Gm Powder TOPICAL SCH ×3 (08:10→21:10)
--- NOTE | 2016-11-17 08:52 | NUR ---
Palliative Care note FCTM D/A: Message received this am from over night RN. She indicated that the meeting that the family had believed was scheduled for 6 pm for 11/17/16 and with nephrology, did not occur and family was disappointed. They also thought it may have been a meeting with PC. PC had explained in meeting with family earlier on 11/16/16 that PC had not scheduled such a meeting with family. Request was received to call family members Dillon at [phone] and Navin at [phone] to schedule a meeting time for today. Call to both Dillon and Navin and have scheduled a meeting for 1:00 today. Call to Video Game Script Writer services and discuss with Gail who is able to arrange for 1:00 volcanology teacher. Have left msg for [facility] PUBLIC SERVICE ADMINISTRATOR, discussed with bedside DONOR RELATIONS COORDINATOR and also alerted Dr. Wild. P: Palliative to follow as needed. Tracey REBOLLAR, [facility]
--- NOTE | 2016-11-17 09:05 | NUR ---
Social Work-readiness d/c planning: Data:EMR reviewed. Pt is on day 7 of hospitalization for anasarca per H&P. Pt is not medically stable anticipate 1-2 more days. Pt resides at home with her daughter in [place] and will return there at discharge. Per RN notes, pt has been up independent in her room. Pt's family to provide transports home. Palliative care involved and has arranged for another family team meeting today with family at 1300. No anticipated discharge needs. SW will continue to follow if needs arise. Assessment:Pt who is independent at baseline. Plan:Pt to discharge home when medically stable via POV. No anticipated discharge needs. SW will continue to follow if needs arise. SUZANNE Sofia
[2016-11-17] MEDS ORDERED: Albumin 25% 25 GM in IV Premix 1 EACH IV ONE (09:35)
--- NOTE | 2016-11-17 09:35 | PCM.PNNEPH ---
Subjective Date of Service Nov 17, 2016 Subjective Patient's renal function remains about the same. Her abdominal girth appears to be increasing and is 9/10. It is larger than it was yesterday. She denies any pain or shortness of breath. Last 24 hours she has had for 10 AM and 500 out over 200 mL was ALREADY in the first 8 hours of today. Her blood pressure is good. There is no ammonia level for today however her sodium is 137, potassium 3.6, chloride 104, bicarbonate 19, BUN and creatinine 46 and 2.0 with an albumin of 2.4. Exam Vital Signs Vital Sign - Last Date Time Temp Pulse Resp B/P Pulse Ox O2 Delivery O2 Flow Rate FiO2 11/17/16 08:49 37.1 57 24 125/56 95 Room Air Intake and Output 11/16/16 11/16/16 11/17/16 Cumulative From/Thru 15:00 23:00 07:00 11/09/16 21:28 - 11/17/16 06:07 Intake Total 410 ml 1 ml 6285 ml Output Total 503 ml 201 ml 82356 ml Balance -93 ml -200 ml -7239 ml Intake Oral 400 ml 1 ml 5342 ml IV Total 10 ml 943 ml Output Urine Total 500 ml 200 ml 99514 ml Stool Total 5 ml Emesis 100 ml Estimated Blood Loss 3 ml 1 ml 4 ml # Voids 1 5 # Bowel Movements 8 Exam HEENT examination is remarkable for some mild periorbital edema and sclera. Neck is supple without adenopathy thyromegaly or jugular venous distention. Lungs are clear to auscultation. Breath sounds are somewhat diminished. Heart is regular with a cold with a soft systolic murmur. Abdomen is distended with fluid wave noted. The abdomen is nontender. There is no evidence of hepatosplenomegaly and the liver is pulsatile. Extremities showed some mild pitting edema limited to the distal lower extremities. Lab and Diagnostics Result Diagram: 11/17/16 0555 11/17/16 0555 Microbiology Name: NILESH SPRINGER Age/Sex: 61/F Attend Dr: Kenya Dominguez Acct: [id number] Unit: [id number] Status: ADM IN Location: [facility] [place] 3015-1 Re11/10/16 Disch: Specimen: [id number] Collected: 11/10/16 Status: COMP Req#: [id number] Received: 11/11/16 Source: STOOL Sp Desc : Subm Dr: Liban Panchal MD Ordered: WFOBT Comments: Collected by Nurse/Unit? Y/N Y Procedure Result Verified Site Microbiology VANDA OCCULT BLOOD IMMUNOCHEM Final 11/11/16 OCCULT BLD IMMUNOCHEMICAL NEGATIVE REFERENCE INTERVAL NEGATIVE X-Rays, CTs and MRIs PROCEDURE: X-RAY CHEST ONE VIEW ([id number]) INDICATIONS: history CHF, dyspnea TECHNIQUE: One view of the chest was acquired. COMPARISON: [facility], CR, XR CHEST 2VW, 09/16/2016, 9:26. FINDINGS: Surgical changes and devices: None. Lungs and pleura: No pleural effusions or pneumothorax. Interstitial densities present bilaterally with no significant change. Mediastinum: Mediastinal contours appear normal. Heart size is enlarged. Bones and chest wall: No suspicious bony lesions. Overlying soft tissues appear unremarkable. IMPRESSION: Cardiomegaly and mild edema similar to prior examinations which may be chronic. Correlate clinically. Dictated by: Efren White RRA Interpreted: Henry Mansfield MD on 11/10/2016 at 9: 04 Transcribed by: ERLINDA on 11/10/2016 at 9:10 Approved by: Henry Mansfield M.D. on 11/10/2016 at 17:06 12-lead ECG Sinus rhythm rate 72 Left anterior fascicular block Low voltage, precordial leads No signs of ischemia Cardiac Echo Impressions Echocardiogram Report Name: NILESH SPRINGER Study Date: 11/11/2016 Height: 65 in Hospital Exam Location: [facility] Weight: 254 lb Gender: Female BSA: 2.2 m2 : 1955 Age: 61 yrs BP: 158/81 mmHg Reason For Study: Anasarca Ordering Physician: Performed By: May Vu Interpretation Summary Technically difficult study. Normal left ventricle size with ejection fraction 60-65%. No obvious focal wall motion abnormalities. Assessment of diastolic parameters suggests a pseudonormalization pattern, consistent with elevated filling pressures. Right ventricular systolic pressure is estimated to be 40 mmHg plus the clinically estimated CVP which cannot be estimated on this exam. Moderate pulmonary hypertension. Comparison is made with the echocardiogram of 09-14-16, there has been no significant change. Plan Impression Impression #1 decompensated cirrhosis with increasing ascites number #2 acute kidney injury secondary to #1 with hepatorenal syndrome #3 hypertension with hypertensive heart disease and hypertensive nephrosclerosis number for hepatitis C by history Recommendations #1 I will schedule a large volume paracentesis for today. Prior to this we will check PT and PTT prior to the procedure. Following the procedure I would like to give her 25 g of albumin and I would like to send the ascitic fluid for cell count, differential, and culture. Neymar May DO Nov 17, 2016 09:35
[2016-11-17 11:02] LABS: INR 1.18 ratio
--- NOTE | 2016-11-17 15:04 | PCM.PALLBR ---
Palliative Care Recommendation 61-year-old female with history of cirrhosis (MELD 17, Child Nguyen B) secondary to MOSHER (NOT hepatitis C as is documented elsewhere) followed closely at [facility], admitted here with progressive abdominal discomfort, weakness and anasarca, complicated by acute renal injury associated with diuresis as well as hepatic encephalopathy. Palliative medicine consulted to assist patient and family in determination of goals of care. Extended family conference on 11/17- see below for details. Per my conversation with her ambulatory care nurse on 11/16/16 patient is NOT a candidate for transplant (copies of recent [facility] records are now appended to her paper chart). Patient's ambulatory care nurse: Sofia MCCRACKEN/Ph.D. [facility] [address] [place] [address] option 8 (for her nurse Gisela) Summary of palliative recommendations: -Symptom management (Pain/other)- reasonably comfortable at this time with good symptom control on current prn medications per her hospitalist team. -DPOA/Advanced Directives/POLST- per family members, daughter Beth is POA but oldest daughter Selina (with whom the patient lives) is the best contact/has the most information. Apparently, no prior advanced directive or POLST completed. At this time, patient and her family remained committed to ongoing aggressive care and she remains full code. -Family/emotional support- excellent family support from multiple family members , though language and financial barriers pose problems. 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 Chronic Conditions Hypertension GERD Problems: End of Life Preferences Full code Goals of Care Patient states that she wants to get better, and family supports this. As a consequence of our lengthy meeting today, family members are focused on supporting patient compliance, but also recognize that ultimately the patient has to decide whether she wants to cooperate or not. Disposition Probably home with family Resuscitation Status Resuscitation Status: CPR: Attempt Resuscitation POLST Updates/Changes Previous POLST?: No . Pain: None Total time 95 minutes; >50% face to face with patient and family, providing counselling regarding plans and recommendations, and in care coordination with her medical teams. Open above total time, 75 minutes counseling for advanced care planning with the patient's family Palliative Brief Note Date of Service Nov 17, 2016 . Returned to reevaluate patient. Prior to visiting, reviewed her updated records in the EMR in detail. Also spoke with her hospitalist and with her bedside nurse, as well as her manager pe. Met separately with multiple family members, accompanied by palliative TOWER OPERATOR Ms. Montenegro. Patient's oldest daughter Selina as well as 3 other daughters and 2 sons present. Talked with the family for greater than 75 minutes, reviewing the patient's admission, course of care, history of liver disease, my review of her situation with her [facility] liver specialist, etc. Family members had multiple questions about her medical conditions, her treatment, her prognosis, home management issues, etc. but by the end of our conference expressed satisfaction and gratitude with the time taken and the much improved understanding they had of the patient's status. In particular, we talked about the intractable nature of her underlying liver disease and the necessity of the patient taking her medications as directed, adhering to her low sodium diet, following up appropriately with her liver specialist, and otherwise adhering as closely as possible to her medical treatment program. Talked with the family about her overall prognosis and potential longevity based on her MELD and Child Nguyen scores, though emphasized that there could be no guarantees and that all she or they could do to give her the best chance of survival would be to adhere to her program. They did inquire about transplant and I advised him that, per her liver specialist, she is not a transplant candidate, and they accepted this. Family members admitted that the patient frequently is resistant/noncompliant and I gently advised them that sometimes one cannot make people do what they do not want to do, and that they may need to begin to accept that. Escobar Wild MD Nov 17, 2016 15:04
--- NOTE | 2016-11-17 15:28 | NUR ---
Palliative care note [facility] D/A: Met with Selina BethDillon and three other children of pt. Present were Elba, teacher dramatics services, Dr. Wild and this worker. Long discussion with many question related to pt current medical status, what can be done to impact or improve her medical condition (medication adherence and diet) and some thoughts on prognosis. Explored current plan to investigate need for paracentesis. Family notes that pt has difficulties in taking her meds as written and following her low salt diet. Family expresses a desire to be more involved and stringent about pt being medication and diet compliant. Dtr Selina can be reached at [phone]. She asks about pt Medicaid application and this worker notes that it is currently in process. Case discussed with carlos Francis. Phone call to [employer] at [phone] and have left message regarding status of application. Note that application was started in Aug. Selina notes that she has not been asked to supply Medicaid with financial information for pt application. P: Palliative care to follow. SUZANNE Khoury.
--- NOTE | 2016-11-17 15:53 | NUR ---
Daily update Patient alert and oriented X3 today. Patient abdomen is quite large and has ordered US guided paracentesis. Patient remains 1 person assist with FWW to bathroom. Patient has been compliant with all ordered medications today including oral Lactulose. Rectal Lactulose was held due to patient taking medication orally. Patient denied pain. Family had a successful meeting with palliative care team. Awaiting US guided paracentesis at this point.
--- NOTE | 2016-11-17 16:09 | PCM.PNMED ---
Subjective Date of Service Nov 17, 2016 Subjective denies any new issues/complaints. does report some ongoing mid-epigastric pain Exam Vital Signs Vital Sign - Last Date Time Temp Pulse Resp B/P Pulse Ox O2 Delivery O2 Flow Rate FiO2 11/17/16 12:51 36.6 62 20 126/68 98 Room Air Intake and Output 11/16/16 11/16/16 11/17/16 Cumulative From/Thru 15:00 23:00 07:00 11/09/16 21:28 - 11/17/16 06:07 Intake Total 410 ml 1 ml 6285 ml Output Total 503 ml 201 ml 28600 ml Balance -93 ml -200 ml -7239 ml Intake Oral 400 ml 1 ml 5342 ml IV Total 10 ml 943 ml Output Urine Total 500 ml 200 ml 88882 ml Stool Total 5 ml Emesis 100 ml Estimated Blood Loss 3 ml 1 ml 4 ml # Voids 1 5 # Bowel Movements 8 Exam General: Alert, Cooperative, No Acute Distress Head: Normal Eyes: PERRLA, Scleral Anicteric Mouth: Mucous Membr Moist/[place] Neck: Supple Chest & Lungs: Chest Wall Normal, Clear to auscultation bilat Cardiovascular: Regular Rate/Rhythm Abdomen: Non-tender, Distended (mild), Normoactive bowel tones, Soft Extremities: Edema (2+ pitting edema in LE bilat) Neurological: Grossly Neurologically Intact, Normal Speech IVs and Medications Medications Reviewed: Medications were reviewed in detail Lab and Diagnostics Result Diagram: 11/17/16 0555 11/17/16 0555 Microbiology Name: NILESH SPRINGER Age/Sex: 61/F Attend Dr: Kenya Dominguez Acct: [id number] Unit: [id number] Status: ADM IN Location: [facility] [place] 3015-1 Re11/10/16 Disch: Specimen: [id number] Collected: 11/10/16 Status: COMP Req#: [id number] Received: 11/11/16 Source: STOOL Sp Desc : Subm Dr: Liban Panchal MD Ordered: WFOBT Comments: Collected by Nurse/Unit? Y/N Y Procedure Result Verified Site Microbiology VANDA OCCULT BLOOD IMMUNOCHEM Final 11/11/16 OCCULT BLD IMMUNOCHEMICAL NEGATIVE REFERENCE INTERVAL NEGATIVE X-Rays, CTs and MRIs PROCEDURE: X-RAY CHEST ONE VIEW ([id number]) INDICATIONS: history CHF, dyspnea TECHNIQUE: One view of the chest was acquired. COMPARISON: [facility], CR, XR CHEST 2VW, 09/16/2016, 9:26. FINDINGS: Surgical changes and devices: None. Lungs and pleura: No pleural effusions or pneumothorax. Interstitial densities present bilaterally with no significant change. Mediastinum: Mediastinal contours appear normal. Heart size is enlarged. Bones and chest wall: No suspicious bony lesions. Overlying soft tissues appear unremarkable. IMPRESSION: Cardiomegaly and mild edema similar to prior examinations which may be chronic. Correlate clinically. Dictated by: Efren White RRA Interpreted: Henry Mansfield MD on 11/10/2016 at 9: 04 Transcribed by: ERLINDA on 11/10/2016 at 9:10 Approved by: Henry Mansfield M.D. on 11/10/2016 at 17:06 12-lead ECG Sinus rhythm rate 72 Left anterior fascicular block Low voltage, precordial leads No signs of ischemia Cardiac Echo Impressions Echocardiogram Report Name: NILESH SPRINGER Study Date: 11/11/2016 Height: 65 in Hospital Exam Location: [facility] Weight: 254 lb Gender: Female BSA: 2.2 m2 : 1955 Age: 61 yrs BP: 158/81 mmHg [facility] Ordering Physician: Performed By: May Vu Interpretation Summary Technically difficult study. Normal left ventricle size with ejection fraction 60-65%. No obvious focal wall motion abnormalities. Assessment of diastolic parameters suggests a pseudonormalization pattern, consistent with elevated filling pressures. Right ventricular systolic pressure is estimated to be 40 mmHg plus the clinically estimated CVP which cannot be estimated on this exam. Moderate pulmonary hypertension. Comparison is made with the echocardiogram of 09-14-16, there has been no significant change. Assessment & Plan 61 y.o. Vietnamese speaking only female with past medical history of end stage liver disease with anasarca, Hep C, DM II insulin dependent, HTN. She presented to the [facility] ED with worsening generalized edema, anasarca, worsening abdominal pain over two days. Patient was admitted for abdominal pain in the setting of worsening anasarca and generalized edema. # Acute abdominal Pain, present on admission. 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 - Lasix on hold as per Nephrology - Avoid Hepatotoxic medications # Acute on chronic hepatic encephalopathy. present on admission. improving - c/w Lactulose. # Acute kidney injury secondary to overdiuresis and hepatorenal syndrome. present on admission. ongoing - appreciate nephrology consult. will f/u w/ recs - low-dose spironolactone per nephrology - f/u BMP # Acute Hyponatremia, poa. Resolved - f/u # Type II DM - c/w Lantus - c/w ISS - f/u # Hypothyroidism - on levothyroxine 50 g by mouth daily # Anemia likely due to chronic renal disease. - s/p 2 units of packed red blood cells - appropriate response. - f/u # Hypertension, chronic. poorly controlled - Continue Diuresis as above # Goals of care - appreciate palliative care consult. will f/u w/ recs Patient's missing persons investigator: Sofia MCCRACKEN/Ph.D. [facility] [address] [place] [address] option 8 (for her nurse Gisela) Dispo: 2-4 days GI Prophylaxis: Proton Pump Inhibitor VTE Prophylaxis: Sub-Q Heparin (Unfractionated) VTE Mechanical Devices: Intermittant Pneumatic CD Resuscitation Status: CPR: Attempt Resuscitation Juan Peres Nov 17, 2016 16:09
--- NOTE | 2016-11-17 19:26 | NUR ---
Call to Ultrasound This Rn called ultrasound to inquire about paracentesis order from this morning that had not been done yet. No reply. Will call back later. Per day shift report, prior RN had called several times as well with no reply.
[2016-11-17] MEDS: Insulin GLARgine 100 Unit/mL Syringe SUBQ SCH (21:18)
[2016-11-18] VITALS (7 sets, daily range): BP systolic 123–151; BP diastolic 56–74; PULSE 59–72; RESP 18–20; O2SAT 98–99
[2016-11-18 02:08] LABS: Thyroxine (T4) 3.6 ug/dL (4.5-12.0)
[2016-11-18] MEDS: Lactulose 20 Gm/30 mL 30 mL Syrup PO SCH ×6 (04:30→23:44)
[2016-11-18 07:32] LABS: Magnesium 2.2 mg/dL (1.6-2.6)
[2016-11-18] MEDS: Lactulose 200 GM/Bottle Enema RECTAL SCH ×4 (08:30→23:44)
[2016-11-18] MEDS: Insulin LISPRO 300 Unit/3 mL Inj SUBQ SCH ×4 (09:11→20:42)
[2016-11-18] MEDS: Nystatin 100,000 Unit/Gm 15 Gm Powder TOPICAL SCH ×3 (09:12→20:41)
[2016-11-18] MEDS: 0.9% Sodium Chloride 1,000 ML IV SCH ×2 (10:35→16:50)
--- NOTE | 2016-11-18 10:38 | PCM.PNNEPH ---
Subjective Date of Service Nov 18, 2016 Subjective Patient's renal function remains stable with a creatinine of 1.8. I ordered ultrasound and possible paracentesis there was minimal fluid noted in her abdomen. It is of note is her TSH is markedly elevated at 29.5. She denies any chest pain, shortness of breath, cough, wheezing, nausea or vomiting. This morning her sodium is 136, potassium 3.9, chloride 103, bicarbonate 17, BUN and creatinine 48 and 1.8 respectively. Albumin is 2.5 and TSH is 29.5 as noted above. Exam Vital Signs Vital Sign - Last Date Time Temp Pulse Resp B/P Pulse Ox O2 Delivery O2 Flow Rate FiO2 11/18/16 10:11 59 11/18/16 09:18 36.7 20 151/74 99 Room Air Intake and Output 11/17/16 11/17/16 11/18/16 Cumulative From/Thru 15:00 23:00 07:00 11/09/16 21:28 - 11/18/16 06:08 Intake Total 719 ml 100 ml 7104 ml Output Total 200 ml 225 ml 07880 ml Balance 519 ml -125 ml -6845 ml Intake Oral 709 ml 100 ml 6151 ml IV Total 10 ml 953 ml Output Urine Total 200 ml 225 ml 66662 ml Stool Total 5 ml Emesis 100 ml Estimated Blood Loss 4 ml # Voids 1 6 # Bowel Movements 2 2 12 Exam Neck is supple without adenopathy, thyromegaly, or evidence of venous distention. Lungs are clear but somewhat diminished bilaterally. Heart is regular soft systolic murmur. Abdomen is pendulous and some hepatomegaly is noted. Extremities shows generalized mild to moderate pitting lower extremity edema and both proximal distal lower leg bilaterally. Lab and Diagnostics Result Diagram: 11/17/16 0555 11/18/16 0640 Microbiology Name: NILESH SPRINGER Age/Sex: 61/F Attend Dr: Kenya Dominguez Acct: [id number] Unit: [id number] Status: ADM IN Location: [facility] [place] 3015-1 Re11/10/16 Disch: Specimen: [id number] Collected: 11/10/16 Status: COMP Req#: [id number] Received: 11/11/16 Source: STOOL Sp Desc : Subm Dr: Liban Panchal MD Ordered: WFOBT Comments: Collected by Nurse/Unit? Y/N Y Procedure Result Verified Site Microbiology VANDA OCCULT BLOOD IMMUNOCHEM Final 11/11/16 OCCULT BLD IMMUNOCHEMICAL NEGATIVE REFERENCE INTERVAL NEGATIVE X-Rays, CTs and MRIs PROCEDURE: X-RAY CHEST ONE VIEW ([id number]) INDICATIONS: history CHF, dyspnea TECHNIQUE: One view of the chest was acquired. COMPARISON: [facility], CR, XR CHEST 2VW, 09/16/2016, 9:26. FINDINGS: Surgical changes and devices: None. Lungs and pleura: No pleural effusions or pneumothorax. Interstitial densities present bilaterally with no significant change. Mediastinum: Mediastinal contours appear normal. Heart size is enlarged. Bones and chest wall: No suspicious bony lesions. Overlying soft tissues appear unremarkable. IMPRESSION: Cardiomegaly and mild edema similar to prior examinations which may be chronic. Correlate clinically. Dictated by: Efren White RR Interpreted: Henry Mansfield MD on 11/10/2016 at 9: 04 Transcribed by: ERLINDA on 11/10/2016 at 9:10 Approved by: Henry Mansfield M.D. on 11/10/2016 at 17:06 12-lead ECG Sinus rhythm rate 72 Left anterior fascicular block Low voltage, precordial leads No signs of ischemia Cardiac Echo Impressions Echocardiogram Report Name: NILESH SPRINGER Study Date: 11/11/2016 Height: 65 in Hospital Exam Location: [facility] Weight: 254 lb Gender: Female BSA: 2.2 m2 : 1955 Age: 61 yrs BP: 158/81 mmHg Reason For Study: Anasarca Ordering Physician: Performed By: May Vu Interpretation Summary Technically difficult study. Normal left ventricle size with ejection fraction 60-65%. No obvious focal wall motion abnormalities. Assessment of diastolic parameters suggests a pseudonormalization pattern, consistent with elevated filling pressures. Right ventricular systolic pressure is estimated to be 40 mmHg plus the clinically estimated CVP which cannot be estimated on this exam. Moderate pulmonary hypertension. Comparison is made with the echocardiogram of 09-14-16, there has been no significant change. Plan Impression Impression #1 acute kidney injury #2 Presley cirrhosis not hepatitis C #3 hepatorenal syndrome Recommendations #1 I would like to cautiously restart her loop diuretics. Typically continue her on the spironolactone. Neymar May DO Nov 18, 2016 10:38
[2016-11-18] MEDS: Ondansetron 2 mg/mL 2 mL Inj IVPUSH PRN ×2 (10:50)
--- NOTE | 2016-11-18 11:22 | NUR ---
Palliative Care Mailed Dr Wild's 11/17/16 note to pt's electrical tests supervisor per Dr Wild's request. Sofia MCCRACKEN/Ph.D. [facility] [address] [place] [address] option 8 (for her nurse Gisela) Sheree Black
--- NOTE | 2016-11-18 13:51 | DRSVH ---
PROCEDURE: US ABDOMEN, LIMITED ([id number]) INDICATIONS: Increasing ascites TECHNIQUE: Real-time focused scanning was performed of the abdomen, with image documentation. COMPARISON: None. FINDINGS: Trace free fluid within the right upper quadrant otherwise no ascites. IMPRESSION: Trace ascites. Dictated by: Efren MAGAÑA Interpreted: Frida Vega MD on 11/18/2016 at 13:50 Transcribed by: EDDIE on 11/18/2016 at 13:51 Approved by: Frida Vega M.D. on 11/18/2016 at 17:45
--- NOTE | 2016-11-18 14:30 | PCM.PNMED ---
Subjective Date of Service Nov 18, 2016 Subjective denies any new issues/complaints. does report some nausea Exam Vital Signs Vital Sign - Last Date Time Temp Pulse Resp B/P Pulse Ox O2 Delivery O2 Flow Rate FiO2 11/18/16 13:42 36.7 68 19 134/71 98 Room Air Intake and Output 11/17/16 11/17/16 11/18/16 Cumulative From/Thru 15:00 23:00 07:00 11/09/16 21:28 - 11/18/16 06:08 Intake Total 719 ml 100 ml 7104 ml Output Total 200 ml 225 ml 30630 ml Balance 519 ml -125 ml -6845 ml Intake Oral 709 ml 100 ml 6151 ml IV Total 10 ml 953 ml Output Urine Total 200 ml 225 ml 05485 ml Stool Total 5 ml Emesis 100 ml Estimated Blood Loss 4 ml # Voids 1 6 # Bowel Movements 2 2 12 Exam General: Alert, Cooperative, No Acute Distress Head: Normal Eyes: PERRLA, Scleral Anicteric Mouth: Mucous Membr Moist/[place] Neck: Supple Chest & Lungs: Chest Wall Normal, Clear to auscultation bilat Cardiovascular: Regular Rate/Rhythm Abdomen: Non-tender, Distended (mild), Normoactive bowel tones, Soft Extremities: Edema (1+ pitting edema in LE bilat) Neurological: Grossly Neurologically Intact, Normal Speech IVs and Medications Medications Reviewed: Medications were reviewed in detail Lab and Diagnostics Result Diagram: 11/17/16 0555 11/18/16 0640 Microbiology Name: NILESH SPRINGER Age/Sex: 61/F Attend Dr: Kenya Dominguez Acct: [id number] Unit: [id number] Status: ADM IN [place] [facility] [place]015-1 Re11/10/16 Disch: Specimen: [id number] Collected: 11/10/16 Status: COMP Req#: [id number] Received: 11/11/16 Source: STOOL Sp Desc : Subm Dr: Liban Panchal MD Ordered: WFOBT Comments: Collected by Nurse/Unit? Y/N Y Procedure Result Verified Site Microbiology VANDA OCCULT BLOOD IMMUNOCHEM Final 11/11/16 OCCULT BLD IMMUNOCHEMICAL NEGATIVE REFERENCE INTERVAL NEGATIVE X-Rays, CTs and MRIs PROCEDURE: X-RAY CHEST ONE VIEW ([id number]) INDICATIONS: history CHF, dyspnea TECHNIQUE: One view of the chest was acquired. COMPARISON: [facility], CR, XR CHEST 2VW, 09/16/2016, 9:26. FINDINGS: Surgical changes and devices: None. Lungs and pleura: No pleural effusions or pneumothorax. Interstitial densities present bilaterally with no significant change. Mediastinum: Mediastinal contours appear normal. Heart size is enlarged. Bones and chest wall: No suspicious bony lesions. Overlying soft tissues appear unremarkable. IMPRESSION: Cardiomegaly and mild edema similar to prior examinations which may be chronic. Correlate clinically. Dictated by: Efren White RRA Interpreted: Henry Mansfield MD on 11/10/2016 at 9: 04 Transcribed by: ERLINDA on 11/10/2016 at 9:10 Approved by: Henry Mansfield M.D. on 11/10/2016 at 17:06 12-lead ECG Sinus rhythm rate 72 Left anterior fascicular block Low voltage, precordial leads No signs of ischemia Cardiac Echo Impressions Echocardiogram Report Name: NILESH SPRINGER Study Date: 11/11/2016 Height: 65 in Hospital Exam [facility]: [facility] Weight: 254 lb Gender: Female BSA: 2.2 m2 : 1955 Age: 61 yrs BP: 158/81 mmHg Reason For Study: Anasarca Ordering Physician: Performed By: May Vu Interpretation Summary Technically difficult study. Normal left ventricle size with ejection fraction 60-65%. No obvious focal wall motion abnormalities. Assessment of diastolic parameters suggests a pseudonormalization pattern, consistent with elevated filling pressures. Right ventricular systolic pressure is estimated to be 40 mmHg plus the clinically estimated CVP which cannot be estimated on this exam. Moderate pulmonary hypertension. Comparison is made with the echocardiogram of 09-14-16, there has been no significant change. Assessment & Plan 61 y.o. Nauruan speaking only female with past medical history of end stage liver disease with anasarca, Hep C, DM II insulin dependent, HTN. She presented to the [facility] ED with worsening generalized edema, anasarca, worsening abdominal pain over two days. Patient was admitted for abdominal pain in the setting of worsening anasarca and generalized edema. # Acute abdominal Pain, present on admission. 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 - Avoid Hepatotoxic medications - diuresis and management as noted above # Acute on chronic hepatic encephalopathy. present on admission. resolved - c/w Lactulose. # Acute kidney injury secondary to overdiuresis and hepatorenal syndrome. present on admission. ongoing - appreciate nephrology consult. will f/u w/ recs - diuresis including spironolactone per nephrology - f/u BMP # Acute Hyponatremia, poa. Resolved - f/u # Type II DM - c/w Lantus - c/w ISS - f/u # Hypothyroidism - on levothyroxine 50 g by mouth daily # Anemia likely due to chronic renal disease. - s/p 2 units of packed red blood cells - appropriate response. - f/u # Hypertension, chronic. poorly controlled - Continue Diuresis as above # Goals of care - appreciate palliative care consult. will f/u w/ recs Patient's fly raiser lockstitch: Sofia MCCRACKEN/Ph.D. [facility] [address] [place] [address] option 8 (for her nurse Gisela) Dispo: 2-3 days GI Prophylaxis: Proton Pump Inhibitor VTE Prophylaxis: Sub-Q Heparin (Unfractionated) VTE Mechanical Devices: Intermittant Pneumatic CD Resuscitation Status: CPR: Attempt Resuscitation Time spent 35 min Juan Peres Nov 18, 2016 14:30
--- NOTE | 2016-11-18 15:21 | PCM.PALLBR ---
Palliative Care Recommendation 61-year-old female with history of cirrhosis (MELD 17, Child Nguyen B) secondary to MOSHER (NOT hepatitis C as is documented elsewhere) followed closely at [facility], admitted here with progressive abdominal discomfort, weakness and anasarca, complicated by acute renal injury associated with diuresis as well as hepatic encephalopathy. Palliative medicine consulted to assist patient and family in determination of goals of care. Extended family conference on 11/17- see below for details. Noncompliance with medications, etc. continues to be an issue. Per my conversation with her machine maintenance technician on 11/16/16 patient is NOT a candidate for transplant (copies of recent [facility] records are now appended to her paper chart). Patient's machine maintenance technician: Sofia MCCRACKEN/Ph.D. [facility] [address] [place] [address] option 8 (for her nurse Gisela) Summary of palliative recommendations: -Symptom management (Pain/other)- reasonably comfortable at this time with good symptom control on current prn medications per her hospitalist team. Strongly encouraged her and her family to see to it that she takes all medications as directed all the time- that she cannot pick and choose medicines on a daily basis depending on how she feels at any given moment. -DPOA/Advanced Directives/POLST- per family members, daughter Beth is POA but oldest daughter Selina (with whom the patient lives) is the best contact/has the most information. Apparently, no prior advanced directive or POLST completed. At this time, patient and her family remained committed to ongoing aggressive care and she remains full code. Reviewed and confirmed again on 11/18 , this time with daughter Hellen as the primary spokesperson -Family/emotional support- excellent family support from multiple family members , though language and financial barriers pose problems. 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 Chronic Conditions Hypertension GERD Problems: End of Life Preferences Full code Goals of Care Patient states that she wants to get better, and family supports this. As a consequence of our lengthy meetings on 11/17 and 11/18, family members are focused on supporting patient compliance, but also recognize that ultimately the patient has to decide whether she wants to cooperate or not. Disposition Probably home with family Resuscitation Status Resuscitation Status: CPR: Attempt Resuscitation POLST Updates/Changes Previous POLST?: No . Pain: None Symptom management: Nausea Total time 40 minutes; >50% face to face with patient and family, providing counselling regarding plans and recommendations, and in care coordination with her medical teams. Palliative Brief Note Date of Service Nov 18, 2016 . Returned to reevaluate patient. Prior to visiting, reviewed the records in the EMR in detail and spoke with her nurse. Was accompanied by patient access coordinator to assist in conversation with patient and her family. Actually, today, a different subset of the family was present, 7 relatives including one of her daughters, several granddaughters, a brother and his family who just arrived from [place]. Patient was sitting up in chair and is awake and alert and without evidence of obvious encephalopathy, this in spite of an ammonia level today of 200. (Note that she skipped multiple doses of her lactulose yesterday and earlier today, despite our lengthy conversations yesterday with her family members about the importance of compliance.) Her physical exam remained stable. Abdomen is obese but without obvious ascites. Ultrasound confirmed this- there is insufficient fluid to attempt paracentesis. Escobar Wild MD Nov 18, 2016 15:21
--- NOTE | 2016-11-18 15:24 | NUR ---
NUTRITION FOLLOW-UP: ASSESS: 61 YO female admitted for anasarca, hyperkalemia, ESLD, and acute on chronic stage III kidney disease. Pt is currently NPO for possible paracentesis today. PO intake continues to be inadequate with pt only eating 0-50% of meals x 8 days. Noted elevated ammonia today. Palliative care following. Pt with history of diet and medication non-compliance per notes. PMHx: Hep C, MOSHER liver cirrhosis, HTN, DM type 2, GERD, ESLD and acute on chronic kidney disease. LABS: Reviewed. BUN 48, Cr 1.81, Glu 169, Ca 8.2, AST 51, ALT 38, Alk phos 177, Ammonia 224, Alb 2.5. MEDS: Reviewed. Lasix, spironolactone, insulin, Lactulose. GI: BM x 2 (11/18) CURRENT WT: 110.3 kg. (pt with anasarca so likely not a dry weight) UBW 100 kg. DIET: Diabetic, 2 g NA, Glucerna at 05/24. PO intake 0-50%. EST. NEEDS (BMI, Liver Disease): 9015-2470 kcals (22-25 kcals/kg UBW), 80-120 g protein (0.8-1.2 g/kg UBW) NUTRITION DIAGNOSIS: 1.) Increased nutrient needs related to increased demand for nutrients for disease process as evidenced by chronic end stage liver disease with cirrhosis and hep C--PERSISTS. 2.) Inadequate oral intake likely related to fluctuating mental status as evidenced by po intake of 0-50% of meals x 8 days. NUTRITION INTERVENTION: 1.) Continue to send Glucerna BID to encourage adequate kcals/protein intake. MONITOR / EVAL: PO intake, labs, nutritional status, POC. Follow per high nutritional risk guidelines.
--- NOTE | 2016-11-18 18:19 | NUR ---
Activity/mentation/lactulose Pt has been alternating between laying in bed, sitting up EOB and sitting in chair at bedside. Denies any dizziness with position change. Pt has remained A&O thi shift, family feels she is behaving per baseline. She has been compliant with taking PO Lactulose all shift. Abd u/s done this morning which revealed minimal fluid in abdomen so paracentesis cancelled per smoking pipe liner. Blood sugars 130-160's this shift. Currently sitting up in chair at bedside, visiting with family. Call light in reach.
[2016-11-18] MEDS: Insulin GLARgine 100 Unit/mL Syringe SUBQ SCH (20:36)
[2016-11-19] VITALS (8 sets, daily range): BP systolic 110–151; BP diastolic 52–71; PULSE 51–67; RESP 16–20; O2SAT 98–100
[2016-11-19] MEDS: Lactulose 20 Gm/30 mL 30 mL Syrup PO SCH ×5 (04:33→20:47)
--- NOTE | 2016-11-19 07:05 | NUR ---
Incontinence Pt was incontinent of diarrhea this evening shortly after receiving lactulose. Pt was able to ambulate to with FWW and chilo care was provided.
--- NOTE | 2016-11-19 08:25 | PCM.PALLBR ---
Palliative Care Recommendation 61-year-old female with history of cirrhosis (MELD 17, Child Nguyen B) secondary to MOSHER (NOT hepatitis C as is documented elsewhere) followed closely at [facility], admitted here with progressive abdominal discomfort, weakness and anasarca, complicated by acute renal injury associated with diuresis as well as hepatic encephalopathy. Palliative medicine consulted to assist patient and family in determination of goals of care. 11/19: Dr. Lainez met with patient and daughter Jina to reinforce need for ongoing lactulose despite its unpleasant side effects. Also gave a trial dose of tramadol for pain from skin tears. Dr. Wild conducted an extended family conference on 11/17- see below for details. Noncompliance with medications, etc. continues to be an issue. Per Dr. Wild's conversation with her narrow fabric calenderer on 11/16/16, patient is NOT a candidate for transplant (copies of recent [facility] records are now appended to her paper chart). Patient's narrow fabric calenderer: Sofia MCCRACKEN/Ph.D. [facility] [address] [place] [address] option 8 (for her nurse Gisela) Summary of palliative recommendations: -Symptom management (Pain/other)- reasonably comfortable at this time with good symptom control on current prn medications per her hospitalist team. Strongly encouraged her and her family to see to it that she takes all medications as directed all the time- that she cannot pick and choose medicines on a daily basis depending on how she feels at any given moment. -DPOA/Advanced Directives/POLST- per family members, daughter Beth is POA but oldest daughter Selina (with whom the patient lives) is the best contact/has the most information. Apparently, no prior advanced directive or POLST completed. At this time, patient and her family remained committed to ongoing aggressive care and she remains full code. Reviewed and confirmed again on 11/18 , this time with daughter Hellen as the primary spokesperson -Family/emotional support- excellent family support from multiple family members , though language and financial barriers pose problems. 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 Chronic Conditions Hypertension GERD Problems: End of Life Preferences Full code Goals of Care Patient states that she wants to get better, and family supports this. As a consequence of our lengthy meetings on 11/17 and 11/18, family members are focused on supporting patient compliance, but also recognize that ultimately the patient has to decide whether she wants to cooperate or not. Disposition Probably home with family Resuscitation Status Resuscitation Status: CPR: Attempt Resuscitation POLST Updates/Changes Previous POLST?: No Total time 35 minutes; >50% face to face with patient and/or family, providing counselling regarding plans and recommendations, and in care coordination with his/her medical teams. Palliative Brief Note Date of Service Nov 19, 2016 . Patient Identification: Patient is a 61 y.o. HF, Cook Islander speaking only, with past medical history of end stage liver disease with anasarca taking spironolactone and lasix, DM II insulin dependent, HTN. She present to ED with worsening generalized edema, anasarca, worsening abdominal pain over the past two days. Patient described diffuse abdominal pain worse with movement associated with reduced urination with increased urgency, shortness of breath, chest pain, fever, chills. Patient was seen at [facility] 5 days ago for a scheduled paracentesis that was not determined to be necessary. In the ED patient given 80 mg lasix and had output of 550cc urine. Hospital Course: With diuresis following admission, patient developed acute renal injury with rising creatinine. Diuresis was discontinued and renal functions have been improving. She has had worsening encephalopathy, responsive to lactulose. Nephrology has been consulted, and Dr. Wild obtained records from [facility] regarding her care there and spoke extensively with her narrow fabric calenderer, Dr. Sofia Melendez. Contrary to documentation here, patient does NOT have a history of hepatitis C and her liver failure is presumed secondary to MOSHER (no other etiology evident following extensive evaluation at [facility]). Patient is followed closely at the [facility] Clinic at [facility] with her next scheduled appointment on 2016. Dr. Melendez noted that patient has chronically decompensated liver disease and struggles with recurrent ascites/edema. She is NOT a transplant candidate. Despite efforts by the [facility] staff to support the patient and her family, there are concerns that she often does not take her medications properly, does not follow appropriate low-sodium diet, etc. Dr. Melendez also noted that the patient chronically complains of dyspnea and is being set up for a pulmonary consultation at [facility]. 11/18, yesterday, pt compliant with taking all lactulose and was clearing up mentally per her family, at her baseline. She had an U/S and there was insufficient fluid in abdomen, so paracentesis was canceled. On evening shift she had copious amounts diarrhea. Dr. Lainez rounding on pt today. Prior to visiting, reviewed the records in the EMR in detail and spoke with her nurse. Subjective: Mrs. To was sitting up in a chair for part of the lunch time period, and just helped back to bed by her daughter Jina. Dr. Lainez enters with switch inspector Elisa. Mrs. Bhakta says that she has some pain from a scrape on her left posterior thigh, which Dr. Lainez inspects. It appears to be a skin tear and Dr. Lainez notified pt's RN to cover it with a dressing. She also offered pain medicine as Mrs. Bhakta states her left posterior elbow is tender from a scratch (covered by bandaid). Mrs. Bhakta accepts but doesn't want an opiate like morphine. We settle on a trial dose of tramadol. She complains about the diarrhea from the lactulose and Dr. Lainez reinforces counseling about how the lactulose helps preserve her mental status. Objective: She is alert, makes good eye contact. Able to speak and think clearly. HEENT: no abnormalities Heart: S1,S2, rrr Lungs: clear Abdomen: distended, nontender, no fluid wave Ext: left posterior thigh with skin tear, erythema at separation of skin, no active bleeding, no raised areas around the scratch Lef posterior elbow dressed with bandaid is tender to touch No edema Sherri Lainez MD Nov 19, 2016 08:25
[2016-11-19] MEDS: Insulin LISPRO 300 Unit/3 mL Inj SUBQ SCH ×4 (09:44→20:48)
[2016-11-19] MEDS: Lactulose 200 GM/Bottle Enema RECTAL SCH ×3 (09:45→20:30)
[2016-11-19] MEDS: Nystatin 100,000 Unit/Gm 15 Gm Powder TOPICAL SCH ×3 (09:45→20:47)
--- NOTE | 2016-11-19 13:21 | PCM.PNMED ---
Subjective Date of Service Nov 19, 2016 Subjective denies any new issues/complaints. does report some dizziness Exam Vital Signs Vital Sign - Last Date Time Temp Pulse Resp B/P Pulse Ox O2 Delivery O2 Flow Rate FiO2 11/19/16 12:57 36.7 67 20 145/67 100 Room Air Intake and Output 11/18/16 11/18/16 11/19/16 Cumulative From/Thru 15:00 23:00 07:00 11/09/16 21:28 - 11/19/16 06:58 Intake Total 400 ml 250 ml 7754 ml Output Total 1 ml 94288 ml Balance 400 ml 249 ml -6196 ml Intake Oral 400 ml 250 ml 6801 ml IV Total 953 ml Output Urine Total 55256 ml Stool Total 1 ml 6 ml Emesis 100 ml Estimated Blood Loss 4 ml # Voids 3 1 10 # Bowel Movements 3 15 Exam General: Alert, Cooperative, No Acute Distress Head: Normal Eyes: PERRLA, Scleral Anicteric Mouth: Mucous Membr Moist/Latta Neck: Supple Chest & Lungs: Chest Wall Normal, Clear to auscultation bilat Cardiovascular: Regular Rate/Rhythm Abdomen: Non-tender, Distended (mild), Normoactive bowel tones, Soft Extremities: Edema (1+ pitting edema in LE bilat) Neurological: Grossly Neurologically Intact, Normal Speech IVs and Medications Medications Reviewed: Medications were reviewed in detail Lab and Diagnostics Result Diagram: 11/17/16 0555 11/19/16 0600 Microbiology Name: NILSEH SPRINGER Age/Sex: 61/F Attend Dr: Kenya Dominguez Acct: [id number] Unit: [id number] Status: ADM IN Location: [facility] [place] 3015-1 Re11/10/16 Disch: Specimen: [id number] Collected: 11/10/16 Status: CATRINA Req#: [id number] Received: 11/11/16 Source: STOOL Sp Desc : Subm Dr: Liban Panchal MD Ordered: WFOBT Comments: Collected by Nurse/Unit? Y/N Y Procedure Result Verified Site Microbiology VANDA OCCULT BLOOD IMMUNOCHEM Final 11/11/16-6543 OCCULT BLD IMMUNOCHEMICAL NEGATIVE REFERENCE INTERVAL NEGATIVE X-Rays, CTs and MRIs Date of Service: 11/09/16 7963 PROCEDURE: X-RAY CHEST ONE VIEW ([id number]) IMPRESSION: Cardiomegaly and mild edema similar to prior examinations which may be chronic. Correlate clinically. Dictated by: Efren LEMAA Interpreted: Henry Mansfield MD on 11/10/2016 at 9: 04 Transcribed by: ERLINDA on 11/10/2016 at 9:10 Approved by: Henry Mansfield M.D. on 11/10/2016 at 17:06 Date of Service: 11/10/16 0336 PROCEDURE: CT ABDOMEN AND PELVIS WITHOUT CONTRAST ([id number]) IMPRESSION: 1. Limited study due to breathing motion artifact. 2. No acute intra-abdominal findings. Of note, the appendix is not visualized. 3. Small pleural effusions, ascites, and anasarca consistent with fluid overload. 3. Splenomegaly suggesting portal hypertension. Note: [facility] and the final report are concordant. Dictated by: Anusha Beaulieu M.D. on 11/10/2016 at 9:07 Approved by: Anusha Beaulieu M.D. on 11/10/2016 at 9:14 Cardiac Echo Impressions Date of Service: 11/11/16 0500 Echocardiogram Report Interpretation Summary Technically difficult study. Normal left ventricle size with ejection fraction 60-65%. No obvious focal wall motion abnormalities. Assessment of diastolic parameters suggests a pseudonormalization pattern, consistent with elevated filling pressures. Right ventricular systolic pressure is estimated to be 40 mmHg plus the clinically estimated CVP which cannot be estimated on this exam. Moderate pulmonary hypertension. Comparison is made with the echocardiogram of 09-14-16, there has been no significant change. Electronically signed by: Mayur Gao on Reading Physician:11/11/2016 12:34 PM Additional Diagnostics Date of Service: 11/18/16 1185 PROCEDURE: US ABDOMEN, LIMITED ([id number]) IMPRESSION: Trace ascites. Dictated by: Efren White RRA Interpreted: Frida Vega MD on 11/18/2016 at 13:50 Transcribed by: EDDIE on 11/18/2016 at 13:51 Approved by: Frida Vega M.D. on 11/18/2016 at 17:45 Assessment & Plan 61 y.o. Persian speaking only female with past medical history of end stage liver disease with anasarca, Hep C, DM II insulin dependent, HTN. She presented to the [facility] ED with worsening generalized edema, anasarca, worsening abdominal pain over two days. Patient was admitted for abdominal pain in the setting of worsening anasarca and generalized edema. # Acute abdominal Pain, present on admission. 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 - Avoid Hepatotoxic medications - diuresis and management as noted above # Acute on chronic hepatic encephalopathy. present on admission. resolved - c/w Lactulose. # Acute kidney injury secondary to overdiuresis and hepatorenal syndrome. present on admission. improving - appreciate nephrology consult. will f/u w/ recs - diuresis including spironolactone per nephrology - f/u BMP # Acute Hyponatremia, poa. Resolved - f/u # Type II DM - c/w Lantus - c/w ISS - f/u # Hypothyroidism - on levothyroxine 50 g by mouth daily # Anemia likely due to chronic renal disease. - s/p 2 units of packed red blood cells - appropriate response. - f/u # Hypertension, chronic. poorly controlled - Continue Diuresis as above # Goals of care - appreciate palliative care consult. will f/u w/ recs Patient's photogrammetric engineer: Sofia MCCRACKEN/Ph.D. [facility] [address] [place] [address] option 8 (for her nurse Gisela) Dispo: 1-2 days pending nephrology clearance GI Prophylaxis: Proton Pump Inhibitor VTE Prophylaxis: Sub-Q Heparin (Unfractionated) VTE Mechanical Devices: Intermittant Pneumatic CD Resuscitation Status: CPR: Attempt Resuscitation Time spent 30 min Juan Peres Nov 19, 2016 13:20
--- NOTE | 2016-11-19 14:31 | NUR ---
Skin tear Pt reported a skin tear to L buttock, approx 2 inches by 0.5cm. She is unsure how skin tear happened. Area cleansed and drsg applied.
--- NOTE | 2016-11-19 18:18 | NUR ---
Activity/lactulose Pt tolerating activity well, amb to BR and sitting up in chair frequently. Denies any dizziness with position change. Pt has remained A&O this shift with no indicators of confusion. She has been compliant with taking PO Lactulose all shift without issue. Currently sitting up in chair at bedside, visiting with family. Call light remains in reach.
[2016-11-19] MEDS: Insulin GLARgine 100 Unit/mL Syringe SUBQ SCH (20:47)
[2016-11-20 00:41] VITALS: BP 124/65; PULSE 61; RESP 18; O2SAT 99
[2016-11-20] MEDS: Lactulose 200 GM/Bottle Enema RECTAL SCH ×3 (01:09→14:30)
[2016-11-20] MEDS: Lactulose 20 Gm/30 mL 30 mL Syrup PO SCH ×4 (01:12→13:24)
[2016-11-20 04:11] VITALS: BP 146/49; PULSE 66; RESP 18; O2SAT 97
[2016-11-20 04:58] VITALS: PULSE 62
--- NOTE | 2016-11-20 07:10 | NUR ---
Bed mobility Pt has been up to BR several times this shift and has been turning side to side independently all night.
[2016-11-20 08:00] VITALS: PULSE 67
[2016-11-20] MEDS: Insulin LISPRO 300 Unit/3 mL Inj SUBQ SCH ×2 (08:00→11:39)
[2016-11-20] MEDS: Nystatin 100,000 Unit/Gm 15 Gm Powder TOPICAL SCH ×2 (08:52→14:30)
[2016-11-20 09:53] VITALS: BP 143/60; PULSE 69; RESP 18; O2SAT 98
--- NOTE | 2016-11-20 13:21 | PCM.PALLBR ---
Palliative Care Recommendation 61-year-old female with history of cirrhosis (MELD 17, Child Nguyen B) secondary to MOSHER (NOT hepatitis C as is documented elsewhere) followed closely at [facility], admitted here with progressive abdominal discomfort, weakness and anasarca, complicated by acute renal injury associated with diuresis as well as hepatic encephalopathy. 11/20: Palliative medicine consulted to assist patient and family in determination of goals of care: pt seen by Dr. Wild and Dr. Lainez (11/16-11/20) and family clearly wants to continue with FULL CODE after lengthy discussions ( with police inspector). Pt has begun complying with use of lactulose as inpatient, which helps her mental status considerably. The Palliative Care Team will sign off today as pt and family goals are united and clear. Thank you for consult. 11/19: Dr. Lainez met with patient and daughter Jina to reinforce need for ongoing lactulose despite its unpleasant side effects. Also gave a trial dose of tramadol for pain from skin tears. Dr. Wild conducted an extended family conference on 11/17- see below for details. Noncompliance with medications, etc. continues to be an issue. Per Dr. Wild's conversation with her assistant portfolio manager on 11/16/16, patient is NOT a candidate for transplant (copies of recent [facility] records are now appended to her paper chart). Patient's assistant portfolio manager: Sofia MCCRACKEN/Ph.D. [facility] [address] [place] [address] option 8 (for her nurse Gisela) Summary of palliative recommendations: -Symptom management (Pain/other)- reasonably comfortable at this time with good symptom control on current prn medications per her hospitalist team. Strongly encouraged her and her family to see to it that she takes all medications as directed all the time- that she cannot pick and choose medicines on a daily basis depending on how she feels at any given moment. -DPOA/Advanced Directives/POLST- per family members, daughter Beth is POA but oldest daughter Selina (with whom the patient lives) is the best contact/has the most information. Apparently, no prior advanced directive or POLST completed. At this time, patient and her family remained committed to ongoing aggressive care and she remains full code. Reviewed and confirmed again on 11/18 , this time with daughter Hellen as the primary spokesperson -Family/emotional support- excellent family support from multiple family members , though language and financial barriers pose problems. Problems: End of Life Preferences Full code Goals of Care Patient states that she wants to get better, and family supports this. As a consequence of our lengthy meetings on 11/17 and 11/18, family members are focused on supporting patient compliance, but also recognize that ultimately the patient has to decide whether she wants to cooperate or not. Disposition Probably home with family Resuscitation Status Resuscitation Status: CPR: Attempt Resuscitation POLST Updates/Changes Previous POLST?: No Total time 15 minutes; >50% face to face with patient and/or family, providing counselling regarding plans and recommendations, and in care coordination with his/her medical teams. Palliative Brief Note Date of Service Nov 20, 2016 . Patient Identification: Patient is a 61 y.o. HF, Portuguese speaking only, with past medical history of end stage liver disease with anasarca taking spironolactone and lasix, DM II insulin dependent, HTN. She present to ED with worsening generalized edema, anasarca, worsening abdominal pain over the past two days. Patient described diffuse abdominal pain worse with movement associated with reduced urination with increased urgency, shortness of breath, chest pain, fever, chills. Patient was seen at [facility] 5 days ago for a scheduled paracentesis that was not determined to be necessary. In the ED patient given 80 mg lasix and had output of 550cc urine. Hospital Course: With diuresis following admission, patient developed acute renal injury with rising creatinine. Diuresis was discontinued and renal functions have been improving. She has had worsening encephalopathy, responsive to lactulose. Nephrology has been consulted, and Dr. Wild obtained records from [facility] regarding her care there and spoke extensively with her assistant portfolio manager, Dr. Sofia Melendez. Contrary to documentation here, patient does NOT have a history of hepatitis C and her liver failure is presumed secondary to MOSHER (no other etiology evident following extensive evaluation at [facility]). Patient is followed closely at the Liver Clinic at [facility] with her next scheduled appointment on 2016. Dr. Melendez noted that patient has chronically decompensated liver disease and struggles with recurrent ascites/edema. She is NOT a transplant candidate. Despite efforts by the [facility] staff to support the patient and her family, there are concerns that she often does not take her medications properly, does not follow appropriate low-sodium diet, etc. Dr. Melendez also noted that the patient chronically complains of dyspnea and is being set up for a pulmonary consultation at [facility]. Patient has be staying awake and alert with no further signs of confusion and has been taking her po lactulose as ordered. Sherri Lainez MD Nov 20, 2016 13:21
[2016-11-20 13:51] VITALS: BP 146/69; PULSE 69; RESP 16; O2SAT 100
[2016-11-20] MEDS ORDERED: AMLO5TAB2 PO (14:35)
[2016-11-20] MEDS ORDERED: LACT10SO60 PO (14:35)
[2016-11-20] MEDS ORDERED: SPIR25TA PO (14:35)
[2016-11-20] MEDS ORDERED: TORS20TA PO (14:35)
[2016-11-20] MEDS ORDERED: LEVO50TA6 PO (14:35)
--- NOTE | 2016-11-20 14:41 | PCM.DIMED ---
Discharge Instructions Date of Service Nov 20, 2016 Dates of Hospitalization Nov 10, 2016 at 03:35 Discharge Diagnosis Discharge Diagnosis # Acute abdominal Pain, present on admission. improved - Due to worsening anasarca secondary to end stage liver failure and acute on chronic kidney disease # Endstage liver disease with Cirrhosis - secondary to MOSHER - followed at [facility] # Acute on chronic hepatic encephalopathy. present on admission. resolved # Acute kidney injury secondary to over diuresis and hepato-renal syndrome. present on admission. improved # Acute Hyponatremia, present on admission. Resolved # Type II Diabetes # Hypothyroidism # Anemia likely due to chronic renal disease. - post 2 units of packed red blood cell transfusion # Hypertension, chronic. Diet Low fat, Low Sodium, Heart Healthy, Diabetic Activity No restrictions Call your provider Fever or Chills, Shortness of breath, Bleeding, Chest pain, Vomitting Patient Instructions Seek immediate medical attention if any new or worsening signs or symptoms occur. Follow-up plan 1. Followup with primary care provider in 3-7 days 2. Followup with nephrology (Dr. May) on Wednesday11/25/16 at 10:[address] [id number] 3. Followup with your pipe roller in 1-2 weeks as previously scheduled. Sofia MCCRACKEN/Ph.D. [facility] [address] [place] [address] option 8 (for her nurse Gisela) Follow-up Provider: Neymar May Masoud Nov 20, 2016 14:41
--- NOTE | 2016-11-20 15:08 | NUR ---
Case Management: Called [facility] to ask about the best way this patient can fill her prescriptions since all she has is AEM. Left VM with request to cb at phone # provided. CPerryRNCCM
--- NOTE | 2016-11-20 15:57 | NUR ---
Social Work: Discharge Data: Pt is on day 10 of hospitalization. EMR reviewed. D/C orders are in. requested BLANKET MAKER talk with pt regarding cost of home prescriptions. UR RN looked into cost of medications, all of her medications total cost less than $40. BLANKET MAKER notified pt and family with merry go round attendant of this. No further d/c planning needs at this time. BLANKET MAKER will continue to follow if needs arise. Assessment: Pt with caregiving at baseline. Plan: Pt will d/c home via POV with family. No further d/c planning needs at this time. BLANKET MAKER will continue to follow if needs arise. SUZANNE Bartlett
--- NOTE | 2016-11-20 16:26 | PCM.DC.MED ---
Discharge Summary Date of Service Nov 20, 2016 Dates of Hospitalization Date of Hospital Admission Nov 10, 2016 at 03:35 Date of Discharge: Nov 20, 2016 Providers: Admitting Physician: Kenya Dominguez DO Primary Care Physician: Other,Physician Attending Physician: Kenya Dominguez DO Diagnosis at Time of Discharge Diagnosis at Time of Discharge # Acute abdominal Pain, present on admission. improved - Due to worsening anasarca secondary to end stage liver failure and acute on chronic kidney disease # Endstage liver disease with Cirrhosis - secondary to MOSHER - followed at [facility] # Acute on chronic hepatic encephalopathy. present on admission. resolved # Acute kidney injury secondary to over diuresis and hepato-renal syndrome. present on admission. improved # Acute Hyponatremia, present on admission. Resolved # Type II Diabetes # Hypothyroidism # Anemia likely due to chronic renal disease. - post 2 units of packed red blood cell transfusion # Hypertension, chronic. Consultations 1. Nephrology Procedures XRay, CTs & MRIs Date of Service: 11/09/16 5566 PROCEDURE: X-RAY CHEST ONE VIEW ([id number]) IMPRESSION: Cardiomegaly and mild edema similar to prior examinations which may be chronic. Correlate clinically. Dictated by: Efren White [facility] Interpreted: Henry Mansfield MD on 11/10/2016 at 9: 04 Transcribed by: ERLINDA on 11/10/2016 at 9:10 Approved by: Henry Mansfield M.D. on 11/10/2016 at 17:06 Date of Service: 11/10/16 0336 PROCEDURE: CT ABDOMEN AND PELVIS WITHOUT CONTRAST ([id number]) IMPRESSION: 1. Limited study due to breathing motion artifact. 2. No acute intra-abdominal findings. Of note, the appendix is not visualized. 3. Small pleural effusions, ascites, and anasarca consistent with fluid overload. 3. Splenomegaly suggesting portal hypertension. Note: The preliminary [facility] interpretation and the final report are concordant. Dictated by: Anusha Beaulieu M.D. on 11/10/2016 at 9:07 Approved by: Anusha Beaulieu M.D. on 11/10/2016 at 9:14 Cardiac Echo Impression Date of Service: 11/11/16 0500 Echocardiogram Report Interpretation Summary Technically difficult study. Normal left ventricle size with ejection fraction 60-65%. No obvious focal wall motion abnormalities. Assessment of diastolic parameters suggests a pseudonormalization pattern, consistent with elevated filling pressures. Right ventricular systolic pressure is estimated to be 40 mmHg plus the clinically estimated CVP which cannot be estimated on this exam. Moderate pulmonary hypertension. Comparison is made with the echocardiogram of 09-14-16, there has been no significant change. Electronically signed by: Mayur Gao on Reading Physician:11/11/2016 12:34 PM Other Diagnostics Date of Service: 11/18/16 0928 PROCEDURE: US ABDOMEN, LIMITED ([id number]) IMPRESSION: Trace ascites. Dictated by: Efren White [facility] Interpreted: Frida Vega MD on 11/18/2016 at 13:50 Transcribed by: EDDIE on 11/18/2016 at 13:51 Approved by: Frida Vega M.D. on 11/18/2016 at 17:45 Brief History Per admission H&P: Patient is a 61 y.o. Cook Islander speaking only F with past medical history of end stage liver disease with anasarca taking spironolactone and lasix, Hep C, DM II insulin dependent, HTN. She present to ED with worsening generalized edema, anasarca, worsening abdominal pain over the past two days. Patient described diffuse abdominal pain worse with movement associated with reduced urination with increased urgency, shortness of breath, chest pain, fever, chills. Patient denies headache, change in vision, syncope, dysuria. Patient was seen at [facility] 5 days ago was scheduled for a paracentesis that was not determined to be necessary. In the ED patient given 80 mg lasix and had output of 550cc urine. Hospital Course # Acute abdominal Pain, present on admission. Resolved - Due to worsening anasarca secondary to end stage liver failure and acute on chronic kidney disease - further diuresis per nephrology # Endstage liver disease with Cirrhosis with Ascites - secondary to MOSHER (NOT hepatitis C as is documented elsewhere) - followed at [facility] - Per palliative care "conversation with her milking system installer on 11/16/16 patient is NOT a candidate for transplant (copies of recent [facility] records are now appended to her paper chart)". - Avoid Hepatotoxic medications - diuresis and management as noted above # Acute on chronic hepatic encephalopathy. present on admission. resolved - c/w Lactulose. # Acute kidney injury secondary to overdiuresis and hepatorenal syndrome. present on admission. improving - appreciate nephrology consult. will f/u w/ recs - diuresis including spironolactone per nephrology - f/u as outpatient # Acute Hyponatremia, poa. Resolved - f/u # Type II DM - c/w Lantus - c/w ISS - f/u # Hypothyroidism. newly diagnosed during this hospital - started on levothyroxine 50 g by mouth daily - further f/u by PCP as outpatient # Anemia likely due to chronic renal disease. - s/p 2 units of packed red blood cells - appropriate response. - f/u # Hypertension, chronic. by day of d/c lungs CTA bilat. abdomen soft, nt, nd, +bs Exam Vital Signs (Last) Date Time Temp Pulse Resp B/P Pulse Ox O2 Delivery O2 Flow Rate FiO2 11/20/16 13:51 36.8 69 16 146/69 100 Room Air Test 11/09/16 21:50 11/10/16 01:21 11/10/16 04:40 11/10/16 18:52 Hold Purple Top Tube Received (Received) Hold Blue Top Tube Received (Received) Hemoglobin A1c 5.4% (4.8-5.6) Hold [place] Top Tube Received (Received) Urine Random Creatinine 136mg/dL (15-278) Urine Random Total Protein 195mg/dL (0-15) Urine Random Sodium 34mEq/L Total Creatine Kinase 873U/L (21-215) Hold [place] Top Tube Received (Received) Urine Color Dark yellow (YELLOW) Urine Appearance Slightly cloudy Urine pH 6.0 (5.0-8.0) Urine Specific [place] 1.015 (1.003-1.035) Urine Protein 100mg/dL (NEG,TRACE) Urine Glucose (UA) Negativemg/dL (NEGATIVE) Urine Ketones Negativemg/dL (NEGATIVE) Urine Occult Blood Large (NEGATIVE) Urine Nitrite Negative (NEGATIVE) Urine Bilirubin Negative (NEGATIVE) Urine Urobilinogen 2mg/dL (NORMAL) Urine Leukocyte Esterase Moderate (NEGATIVE) Urine RBC Packed/hpf (0-2) Urine WBC 6-10/hpf (0-5) Urine Epithelial Cells Occasional/hpf (NONE-MOD) Urine Crystals None seen (NONE SEEN) Urine Bacteria Few/hpf (NONE-FEW) Urine Hyaline Casts None/lpf (NONE) Urine Granular Casts None seen (NONE SEEN) Urine Waxy Casts None seen (NONE SEEN) Urine Red Blood Cell Casts None seen (NONE SEEN) Urine White Blood Cell Casts None seen (NONE SEEN) Urine Mucus None seen (None Seen) Urine Trichomonas None seen (NONE SEEN) Urine Yeast None (NONE SEEN) Urinalysis Comment None Urine Culture Reflexed Indicated Test 11/10/16 20:28 11/11/16 06:20 11/11/16 12:10 11/12/16 06:16 Troponin T 0.144ug/L (0.0-0.011) Lactic Acid Level 1.0mmol/L (0.4-2.0) Pro-B-Type Natriuretic Peptide 791.5pg/mL (0-287) Lipase 70U/L (13-60) Procalcitonin 0.18ng/mL (0.00-0.08) Hold Urine Received (Received) Reticulocyte Count,Calculated 5.7% (0.6-2.6) Iron Level 57ug/dL (35-150) Total Iron Binding Capacity 221ug/dL (250-450) Percent Iron Saturation 26%sat (15-50) Unsaturated Iron Binding 164.4ug/dL Erythropoietin 43.9mIU/mL (2.6-18.5) Ferritin 137ng/mL (13-150) Myeloperoxidase <9.0U/mL (0.0-9.0) Vitamin B12 Level 934pg/mL (211-946) Vitamin D 25-Hydroxy 14.1ng/mL (30.0-100.0) Folate 17.4ng/mL (>3.0) Cryoglobulin Comment (None detected) Anti-Nuclear Antibody Screen Negative (Negative) Cytoplasmic ANCA (c-ANCA) Antibody <1:20titer (Neg:<1:20) Proteinase 3 (PR3) Antibodies <3.5U/mL (0.0-3.5) Atypical p-ANCA <1:20titer (Neg:<1:20) Perinuclear ANCA (p-ANCA) Antibody <1:20titer (Neg:<1:20) Anti-Glomerular Basement Memb Ab 3units (0-20) Complement C3 65mg/dL (82-167) Complement C4 12mg/dL (14-44) Hepatitis B Surface Antigen Negative (Negative) HIV (1&2) Ag and Ab, 4th Generation Non reactive (Non Reactive) Test 11/13/16 06:12 11/14/16 05:17 11/15/16 06:30 11/17/16 05:55 Total Complement (CH50) 48U/mL (42-60) Cortisol 6.5ug/dL (.) Neutrophils (%) (Auto) 61.8% (40-74) Lymphocytes (%) (Auto) 20.3% (14-46) Monocytes (%) (Auto) 9.9% (4-12) Eosinophils (%) (Auto) 6.5% (0-5) Basophils (%) (Auto) 0.4% (0-3) Osmolality 300 (275-300) White Blood Count 5.9th/mm3 (3.8-10.1) Red Blood Count 3.49mil/mm3 (3.90-5.20) Hemoglobin 10.2g/dL (12.0-15.6) Hematocrit 29.8% (35.0-46.0) Mean Corpuscular Volume 85.4fL (81-100) Mean Corpuscular Hemoglobin 29.2pg (27.0-35.0) Mean Corpuscular Hemoglobin Concent 34.2% (32.0-37.0) Red Cell Distribution Width 15.6% (12.3-15.4) Platelet Count 57bil/L (150-400) Phosphorus Level 4.0mg/dL (2.5-4.9) Thyroid Stimulating Hormone (TSH) 29.550uIU/mL (0.450-4.500) Free Thyroxine Index 1.0 (1.2-4.9) Thyroxine (T4) 3.6ug/dL (4.5-12.0) Triiodothyronine (T3) Uptake 29% (24-39) Test 11/17/16 10:05 11/18/16 06:40 11/19/16 06:00 11/20/16 11:50 Prothrombin Time 12.7sec (8.1-12.5) Prothromb Time International Ratio 1.18ratio Activated Partial Thromboplast Time 28.8sec (22.8-33.0) Magnesium Level 2.2mg/dL (1.6-2.6) Total Bilirubin 1.7mg/dL (0.0-1.2) Aspartate Amino Transf (AST/SGOT) 50U/L (0-50) Alanine Aminotransferase (ALT/SGPT) 37U/L (0-32) Alkaline Phosphatase 153U/L (25-165) Total Protein 4.9g/dL (6.4-8.4) Albumin 2.4g/dL (3.4-5.0) Sodium Level 132mEq/L (134-144) Potassium Level 4.2mEq/L (3.5-5.2) Chloride Level 98mEq/L (97-108) Carbon Dioxide Level 18mmol/L (18-29) Blood Urea Nitrogen 42mg/dL (8-27) Creatinine 1.69mg/dL (0.57-1.00) Estimat Glomerular Filtration Rate 44mL/min (>59) Glucose Level 251mg/dL (60-99) Calcium Level 9.0mg/dL (8.5-10.1) Ammonia 148ug/dL (18-53) Microbiology Results Name: NILESH SPRINGER Age/Sex: 61/F Attend Dr: Kenya Dominguez Acct: [id number] Unit: [id number] Status: ADM IN Location: [facility] 3015-1 Re11/10/16 Disch: Specimen: [id number] Collected: 11/10/16 Status: COMP Req#: [id number] Received: 11/11/16 Source: STOOL Sp Desc : Subm Dr: Liban Panchal MD Ordered: WFOBT Comments: Collected by Nurse/Unit? Y/N Y Procedure Result Verified Site Microbiology VANDA OCCULT BLOOD IMMUNOCHEM Final 11/11/16-143 OCCULT BLD IMMUNOCHEMICAL NEGATIVE REFERENCE INTERVAL NEGATIVE Discharge Medications Discharge Medications Amlodipine (Amlodipine) 5 Mg Tablet 5 MG PO DAILY Prescribed by: JUAN BARNTLEY MD Fluoxetine (Fluoxetine) 20 Mg Capsule 20 MG PO DAILY Prescribed by: JOHN PANCHAL MD Insulin Glargine (Lantus U100 Insulin Vial) 100 Unit/Ml Vial 50 UNIT SUBQ BID ( Reported) Lactulose (Lactulose) 20 Gm/30 Ml Solution 20 GM PO DIRECTED take 2-6 times daily with goal of 2-3 bowel movements per day. Prescribed by: JUAN BRANTLEY MD Levothyroxine (Levothyroxine) 50 Mcg Tablet 50 MCG PO DAILY Prescribed by: JUAN BRANTLEY MD Spironolactone (Aldactone) 25 Mg Tablet 25 MG PO HS Prescribed by: JUAN BRANTLEY MD Torsemide (Demadex) 20 Mg Tablet 20 MG PO DAILY Prescribed by: JUAN BRANTLEY MD Followup Plan Disposition: Home Follow-up plan 1. Followup with primary care provider in 3-7 days 2. Followup with nephrology (Dr. May) on Wednesday11/25/16 at 10:[address] [id number] 3. Followup with your wood preparation supervisor in 1-2 weeks as previously scheduled. Sofia MCCRACKEN/Ph.D. [facility] [address] [place] [address] option 8 (for her nurse Gisela) Discharge Diet: Low fat, Low Sodium, Heart Healthy, Diabetic Discharge Activity: No restrictions Patient Instructions Seek immediate medical attention if any new or worsening signs or symptoms occur. Follow-up Provider: Neymar May DO Time spent 40 min copies to: Neymar May DO Juan Brantley Nov 20, 2016 16:26
--- NOTE | 2016-11-20 17:34 | NUR ---
Discharge Pt discharged with family to home via private vehicle. Pt verbalized understanding of discharge and new Rx via death surveys coder. Pt alert and oriented, IV catheter removed intact. Pt left via wheelchair with personal belongings.
== END 2016-11-20 16:30 | disposition home or self-care (01) | DRG 441 ==
LOC: SED 21:16 → MPC 11-10 03:35
PROVIDERS: ADMIT Internal Medicine; ATTEND Internal Medicine
PROC: 30233N1 Transfusion of Nonautologous Red Blood Cells into Peripheral Vein, Percutaneous Approach (ICD-10-PCS; principal; 2016-11-12)
DX: K72.90 Hepatic failure, unspecified without coma (principal); N17.0 Acute kidney failure with tubular necrosis; E87.2 Acidosis; R18.8 Other ascites; E87.1 Hypo-osmolality and hyponatremia; E11.65 Type 2 diabetes mellitus with hyperglycemia; E11.21 Type 2 diabetes mellitus with diabetic nephropathy; E87.5 Hyperkalemia; R07.9 Chest pain, unspecified; Z79.4 Long term (current) use of insulin; I12.9 Hypertensive chronic kidney disease with stage 1 through stage 4 chronic kidney disease, or unspecified chronic kidney disease; N18.9 Chronic kidney disease, unspecified; K21.9 Gastro-esophageal reflux disease without esophagitis; E03.9 Hypothyroidism, unspecified; K74.69 Other cirrhosis of liver; I27.2 Other secondary pulmonary hypertension; E11.319 Type 2 diabetes mellitus with unspecified diabetic retinopathy without macular edema; D69.6 Thrombocytopenia, unspecified; R10.9 Unspecified abdominal pain

== ENCOUNTER 2017-01-31 10:42 | Emergency (ER) | payer SELFPAY ==
[~2017-01-31] VITALS: Ht 165.1 cm; Wt 100.0 kg
[~2017-01-31 10:42] MED LIST changes: +AMLO5TAB2 PO; -FRSM80T PO; +LACT10SO60 PO; +LEVO50TA6 PO; +SPIR25TA PO; -SPIR50TA2 PO; +TORS20TA PO
[2017-01-31 10:50] VITALS: BP 130/67; PULSE 75; RESP 20; O2SAT 100
--- NOTE | 2017-01-31 11:13 | ED.REPORT ---
HPI-Extremity Problem Upper Date of Service Jan 31, 2017 ED Provider: April Guzman History of Present Illness: 62-year-old [place] Citizen-speaking female here for left shoulder and rib pain. She fell on Wednesday, January 25. She tripped over a garden hose. Landed on her lateral left shoulder and her left ribs. She has had decreased range of motion and pain in these areas since then. Denies numbness and tingling. No previous injuries. She is having pain with taking a deep breath. She has many chronic abdominal issues including ascites and hepatitis. She saw her specialist in [place] on week ago. All is stable and there is no new issues with her chronic issues. She is here today for left shoulder and left rib pain. She has also had diarrhea for 15 days goes 6 or 7 times a day. She has seen her doctor for this and is being treated for this in the outpatient setting. Nursing Notes Stated Complaint: FELL AND IN PAIN Chief Complaint: General Complaint Nursing Notes Reviewed: Yes Allergies: Coded Allergies: No Known Allergies (Verified Allergy, Unknown, 11/09/16) Scheduled Amlodipine (Amlodipine) 5 Mg Tablet 5 MG PO DAILY Fluoxetine (Fluoxetine) 20 Mg Capsule 20 MG PO DAILY Insulin Glargine (Lantus U100 Insulin Vial) 100 Unit/Ml Vial 50 UNIT SUBQ BID Lactulose (Lactulose) 20 Gm/30 Ml Solution 20 GM PO DIRECTED take 2-6 times daily with goal of 2-3 bowel movements per day. Levothyroxine (Levothyroxine) 50 Mcg Tablet 50 MCG PO DAILY Spironolactone (Aldactone) 25 Mg Tablet 25 MG PO HS Torsemide (Demadex) 20 Mg Tablet 20 MG PO DAILY Scheduled PRN Oxycodone (Roxicodone) 5 Mg Tablet 5 MG PO Q6H PRN PRN For Pain General Time Seen by MD: 11:05 Chief Complaint Shoulder injury left rib injury L Hx Obtained From: Patient, Other family... (Granddaughter) Arrived By: Walk-in Onset Occurred: 6 days ago Symptom Duration: Since onset Caused by: Fall on ground Location: : Shoulder left Quality: Painful Severity: Current: Moderate Severity: Maximum: Moderate Additional Notes: rib pain Pertinent Negative: Pt denies other symptoms Exacerbated by: Range of motion Recent Healthcare: Recent hospitalization Similar Sx Previous: No Past Medical History Past Medical History Notes: Followed by liver specialist Vandana: KAYKAY Melendez PCP: Andrea Boyd, [facility] Past Medical History - Hepatitis C uncertain means of acquisition - 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 Portal hypertension with leg edema and ascites c. Hypervolemic hypotonic hyponatremia secondary to cirrhosis Insulin dependent type 2 diabetes Hypertension GERD End Stage Liver Disease with Anasarca Past Surgical History Reports: Cholecystectomy Family History Negative for heart, liver issues Smoking History Never Smoker Social History Lives with family Alcohol Use: Denies alcohol use Drug Use: Denies drug use Other Social History: Good social support, Local resident Ambulatory Status Independent Review of Systems Basic Review of Systems Respiratory: No shortness of breath, No cough, No wheeze Constitutional: Denies: Chills, Fatigue, Fever Musculoskeletal: Reports: Extremity pain, Extremity swelling (LE edema, chronic ), Joint pain Complete sys rev & neg: except as marked. Cardiovascular: Reports: Chest pain (L rib/lateral/anterior) GI: Reports: Abdominal pain (chronic), Diarrhea (15 days), Nausea Physical Exam Initial Vital Signs Vital Signs (First) Date Time Temp Pulse Resp B/P Pulse Ox O2 Delivery O2 Flow Rate FiO2 01/31/17 10:50 36.0 75 20 130/67 100 Initial VS: Reviewed, Vital signs normal General/Constitutional: Well-developed, Well-nourished Head / Eyes: Atraumatic, Normocephalic, PERRL ENT: Mucous membranes moist, Conjunctiva normal, No scleral icterus Respiratory: Breath sounds normal, Clear to auscultation, No respiratory distress Cardiovascular: Regular rate & rhythm, Heart sounds normal, Intact distal pulses Abdomen / GI: Soft, Non-tender, No guarding, No rebound, No distention Skin: Warm, Dry, No cyanosis Neurologic: Alert, Oriented, Nonfocal Psychiatric: Mood/affect normal, Behavior normal, Normal thought content General/Constitutional: Awake, Alert, Well appearing Neck: Supple, Full range of motion, No swelling, Non-tender Respiratory / Chest: Breath sounds NL, Breath sounds = bilat, No respiratory distress, No rales, No rhonchi, No wheezing Chest Wall / Ribs: Positive: Chest tender lateral L, Chest tender lower L, Chest tender upper L, Rib tender nondeformed L Cardiovascular: Heart rate NL, Regular rhythm, Heart sounds NL, Peripheral circulation NL Left Shoulder: Positive: ROM reduced, Tenderness present... (Moderate) Restricted range of motion in all directions related to pain. No clavicular tenderness. Point of most tenderness is superior and anterior shoulder. No pain or abnormalities distal to the elbow. Minor tenderness to the humeru. Radial pulse present. CMS intact distally. Patient has 3+ pitting edema bilateral lower extremities family says this is chronic. Abdomen is soft and round and mildly tender throughout the entire abdomen. Family states she has chronic abdominal pain and there is no new pain or abdominal symptoms that she has not been seen and worked up for Interpretation & Diagnostics Interpretation & Diagnostics: PROCEDURE: X-RAY LEFT SHOULDER, MINIMUM TWO VIEWS ([id number]) INDICATIONS: fell onto shoulder/pain TECHNIQUE: 3 views of the shoulder were acquired. COMPARISON: None. FINDINGS: Bones: No fractures or dislocations. No suspicious bony lesions. Visualized ribs appear intact. Soft tissues: No suspicious soft tissue calcifications. IMPRESSION: 1. No fracture or dislocation. The X-Ray Chest Interpretation Chest Xray Interpretation: IMPRESSION: 1. Suggestion of a minimally displaced fracture of the left 9th rib. 2. Small right pleural effusion. 3. Mild pulmonary edema and cardiomegaly suggesting congestive heart failure. Re-Eval/Medical Decision Med Decision/Clinical Course Past patient and family multiple times if she was having any issues with breathing or shortness of breath and denies this every time I ask her. The swelling in her lower extremities is the same as it always is this is not new for her. She denies any new abdominal symptoms either. Her chest x-ray does show a right pleural effusion this was also seen on her CT at the end of October. Also shows pulmonary edema. She does have a history of CHF. And as I said she is having no dyspnea. There is a possible ninth rib fracture on the left side however most of her pain is more lateral fifth and sixth ribs. Discussed x-ray results with family. She does not know if she takes for pain usually there is nothing on her medication reconciliation. Will do oxycodone per her past medical history. We will give her a sling for her left arm pain and discussed rib support Discharge & Departure Shift Change Sign-Out Imaging Studies: Imaging discussed Procedures: Results discussed Response to Therapy: Improved Impression: Primary Impression: Sprain of shoulder, left Encounter type: initial encounter Shoulder sprain type: unspecified sprain Qualified Code: S43.402A - Unspecified sprain of left shoulder joint, initial encounter Additional Impressions: Acute costochondritis Edema Edema type: unspecified Qualified Code: R60.9 - Edema, unspecified CHF (congestive heart failure) Congestive heart failure type: unspecified congestive heart failure type Congestive heart failure chronicity: chronic Qualified Code: I50.9 - Heart failure, unspecified Pleural effusion Disposition: Home Patient Instructions: Costochondritis (ED) Referrals: OTHER,PHYSICIAN (PCP) ANDREA BOYD PA-C EDSupervising Provider for APC: Alfa De Santiago MD, Linnea K ARNP Jan 31, 2017 11:13
--- NOTE | 2017-01-31 11:43 | DRSVH ---
PROCEDURE: X-RAY LEFT RIBS INCLUDEING PA CHEST, MINUMUM THREE VIEWS ([id number]) INDICATIONS: fell onto shoulder/pain TECHNIQUE: 2 views of the left ribs were acquired, along with a single view chest. COMPARISON: [facility], CR, XR CHEST 1VW, 11/10/2016, 0:15. FINDINGS: Surgical changes and devices: None. Bones and chest wall: There is mild cortical irregularity along the costochondral junction of the lef t 9th rib which may represent a minimally displaced fracture. No suspicious bony lesions. Overlying soft tissues appear unremarkable. Lungs and pleura: There is a new small right pleural effusion with associated linear opacities likely representing compressive atelectasis. There are increased reticular interstitial opacities bilatera lly consistent with mild pulmonary edema. No evidence of pneumothorax. No definite left effusion. Mediastinum: Mediastinal contours appear unchanged. Heart size is enlarged. IMPRESSION: 1. Suggestion of a minimally displaced fracture of the left 9th rib. 2. Small right pleural effusion. 3. Mild pulmonary edema and cardiomegaly suggesting congestive heart failure. Dictated by: Kumar Xie M.D. on 01/31/2017 at 11:33 Approved by: Kumar Xie M.D. on 01/31/2017 at 11:36
--- NOTE | 2017-01-31 11:44 | DRSVH ---
PROCEDURE: X-RAY LEFT SHOULDER, MINIMUM TWO VIEWS ([id number]) INDICATIONS: fell onto shoulder/pain TECHNIQUE: 3 views of the shoulder were acquired. COMPARISON: None. FINDINGS: Bones: No fractures or dislocations. No suspicious bony lesions. Visualized ribs appear intact. Soft tissues: No suspicious soft tissue calcifications. IMPRESSION: 1. No fracture or dislocation. The Dictated by: Kumar Xie M.D. on 01/31/2017 at 11:36 Approved by: Kumar Xie M.D. on 01/31/2017 at 11:36
[2017-01-31] MEDS ORDERED: OXYC-474 PO (12:51)
[2017-02-14] MEDS ORDERED: SPIR100T3 PO (09:25)
[2017-02-14] MEDS ORDERED: LEVO50TA6 PO ×2 (09:25→11:05)
[2017-02-14] MEDS ORDERED: FRSM80T PO (09:25)
[2017-02-14] MEDS ORDERED: INSU100I13 SUBQ (11:08)
[2017-02-17] MEDS ORDERED: TRAM-14 PO (07:35)
[2017-02-17] MEDS ORDERED: AMLO2.5T PO (09:13)
== END 2017-01-31 13:47 | disposition home or self-care (01) ==
LOC: SED 10:42
DX: S43.402A Unspecified sprain of left shoulder joint, initial encounter (principal); M94.0 Chondrocostal junction syndrome [Tietze]; E11.9 Type 2 diabetes mellitus without complications; I12.0 Hypertensive chronic kidney disease with stage 5 chronic kidney disease or end stage renal disease; N18.6 End stage renal disease; K21.9 Gastro-esophageal reflux disease without esophagitis; I50.9 Heart failure, unspecified; J90 Pleural effusion, not elsewhere classified; K70.31 Alcoholic cirrhosis of liver with ascites; Z79.1 Long term (current) use of non-steroidal anti-inflammatories (NSAID); W01.0XXA Fall on same level from slipping, tripping and stumbling without subsequent striking against object, initial encounter; Y93.89 Activity, other specified; Y99.8 Other external cause status; Y92.9 Unspecified place or not applicable; R60.9 Edema, unspecified; Z79.4 Long term (current) use of insulin

== ENCOUNTER 2017-03-11 05:44 | Inpatient (IN) | payer SELFPAY ==
[2017-03-11] VITALS (8 sets, daily range): BP systolic 122–168; BP diastolic 44–94; PULSE 79–110; RESP 22–36; O2SAT 99–100
[~2017-03-11] VITALS: Ht 152.4 cm; Wt 98.2 kg
[~2017-03-11 05:44] MED LIST changes: +AMLO2.5T PO; -AMLO5TAB2 PO; +FRSM80T PO; +INSU100I13 SUBQ; -INSU100V7 SUBQ; +SPIR100T3 PO; -SPIR25TA PO; +TRAM-14 PO
--- NOTE | 2017-03-11 06:20 | ED.REPORT ---
HPI-Altered Mental Status Date of Service Mar 11, 2017 ED Provider: Nasir Clay MD Patient is a 62 year old female with a hx of liver cirrhosis, DM, and HTN who presents to the ED in the care of family complaining of progressively increasing confusion onset yesterday morning. Associated symptoms include multiple episodes of coffee colored emesis and a productive cough with brown sputum. Per family, she is not experiencing hematemesis, focal weakness, visual changes, or any other symptoms. She was admitted to the hospital about a month ago for hepatic encephalopathy. Nursing Notes Stated Complaint: VOMITING Chief Complaint: Neuro Symptoms/ Deficits Nursing Notes Reviewed: Yes Allergies: Coded Allergies: No Known Allergies (Verified Allergy, Unknown, 03/11/17) Scheduled Amlodipine (Amlodipine) 2.5 Mg Tablet 2.5 MG PO DAILY Fluoxetine (Fluoxetine) 20 Mg Capsule 20 MG PO DAILY Furosemide (Furosemide) 80 Mg Tab 80 MG PO DAILY Insulin Glargine (Lantus U100 Solostar Insulin Pen) 100 Unit/1 Ml Insuln.pen 50 UNIT SUBQ DAILY Lactulose (Lactulose) 20 Gm/30 Ml Solution 20 GM PO DIRECTED take 2-6 times daily with goal of 2-3 bowel movements per day. Levothyroxine (Levothyroxine) 50 Mcg Tablet 50 MCG PO DAILY Spironolactone (Spironolactone) 100 Mg Tablet 100 MG PO DAILY Torsemide (Demadex) 20 Mg Tablet 20 MG PO DAILY Scheduled PRN Tramadol (Ultram) 50 Mg Tablet 50 MG PO Q12H PRN PRN For Mild Pain General Time Seen by MD: 06:06 Chief Complaint Confused Hx Obtained From: Other family... Arrived By: Walk-in Sudden in Onset?: No Onset Occurred: Yesterday Symptom Duration: Since onset Risk Factors )( IC Bleed Risk Strat Age (<1 yr or >60 yrs)No Blood thinners RF Statements: Risk factors reviewed )( SAH Risk Stratification HypertensionNo Anticoagulation therapy, No Coagulopathy, No Polycystic kidney disease, No Prior SAH RF Statements: Risk factors reviewed Past Medical History Past Medical History Notes: Followed by liver specialist Vandana: KAYKAY Melendez PCP: Ngozi Burk, [facility] Past Medical History - Hepatitis C uncertain means of acquisition - 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 Portal hypertension with leg edema and ascites c. Hypervolemic hypotonic hyponatremia secondary to cirrhosis Insulin dependent type 2 diabetes Hypertension GERD End Stage Liver Disease with Anasarca Reports: Depression Past Surgical History Reports: Cholecystectomy Family History Negative for heart, liver issues Smoking History Never Smoker Social History Lives with family Alcohol Use: Denies alcohol use Drug Use: Denies drug use Other Social History: Good social support, Local resident Ambulatory Status Independent Review of Systems Respiratory: Reports: Prod cough, brown GI: Reports: Vomiting, Denies: Hematemesis Neurologic: Denies: Focal weakness, Vision change, Weakness Psychiatric: Reports: Confusion Complete sys rev & neg: except as marked. Physical Exam Initial Vital Signs Vital Signs (First) Date Time Temp Pulse Resp B/P Pulse Ox O2 Delivery O2 Flow Rate FiO2 03/11/17 06:07 36.6 79 22 145/94 99 Room Air Initial VS: Reviewed, Vital signs abnormal Skin: Warm, Dry Alertness: Positive: Sleeping but arousable Head / Eyes: Atraumatic, Normocephalic Neck: Supple, Full range of motion Respiratory / Chest: Breath sounds NL, Breath sounds = bilat, No respiratory distress Cardiovascular: Heart rate NL, Regular rhythm, Heart sounds NL, No gallop, No murmurs, No rubs Neurologic: Speech NL Oriented to self Abdomen: Atraumatic, Soft, Non-tender Positive fluid wave Rectum / Perineum: No gross blood guaiac negative Interpretation & Diagnostics Lab Results Interpretation Result Diagram: 03/11/17 0620 03/11/17 0620 Test 03/11/17 06:20 03/11/17 08:01 White Blood Count 8.1th/mm3 (3.8-10.1) Red Blood Count 3.18mil/mm3 (3.90-5.20) Hemoglobin 9.5g/dL (12.0-15.6) Hematocrit 26.2% (35.0-46.0) Mean Corpuscular Volume 82.4fL (81-100) Mean Corpuscular Hemoglobin 29.9pg (27.0-35.0) Mean Corpuscular Hemoglobin Concent 36.3% (32.0-37.0) Red Cell Distribution Width 13.1% (12.3-15.4) Platelet Count 89bil/L (150-400) Neutrophils (%) (Auto) 80.8% (40-74) Lymphocytes (%) (Auto) 15.6% (14-46) Monocytes (%) (Auto) 3.2% (4-12) Eosinophils (%) (Auto) 0.1% (0-5) Basophils (%) (Auto) 0.1% (0-3) Sodium Level 128mEq/L (134-144) Potassium Level 6.3mEq/L (3.5-5.2) Chloride Level 94mEq/L (97-108) Carbon Dioxide Level 11mmol/L (18-29) Blood Urea Nitrogen 102mg/dL (8-27) Creatinine 5.40mg/dL (0.57-1.00) Estimat Glomerular Filtration Rate 11mL/min (>59) Glucose Level 182mg/dL (60-99) Lactic Acid Level 2.4mmol/L (0.4-2.0) Calcium Level 8.9mg/dL (8.5-10.1) Magnesium Level 2.6mg/dL (1.6-2.6) Total Bilirubin 2.4mg/dL (0.0-1.2) Aspartate Amino Transf (AST/SGOT) 41U/L (0-50) Alanine Aminotransferase (ALT/SGPT) 33U/L (0-32) Alkaline Phosphatase 275U/L (25-165) Ammonia 307ug/dL (18-53) Troponin T 0.161ug/L (0.0-0.011) Total Protein 6.4g/dL (6.4-8.4) Albumin 2.7g/dL (3.4-5.0) Lipase 190U/L (13-60) Thyroid Stimulating Hormone (TSH) 9.750uIU/mL (0.450-4.500) Hold Mcdonough Top Tube Received (Received) Urine Color Dark yellow (YELLOW) Urine Appearance Hazy (CLEAR,HAZY) Urine pH 5.0 (5.0-8.0) Urine Specific Boles 1.016 (1.003-1.035) Urine Protein 100mg/dL (NEG,TRACE) Urine Glucose (UA) Negativemg/dL (NEGATIVE) Urine Ketones Negativemg/dL (NEGATIVE) Urine Occult Blood Large (NEGATIVE) Urine Nitrite Negative (NEGATIVE) Urine Bilirubin Negative (NEGATIVE) Urine Urobilinogen Normalmg/dL (NORMAL) Urine Leukocyte Esterase Negative (NEGATIVE) Urine RBC 11-50/hpf (0-2) Urine WBC 0-5/hpf (0-5) Urine Epithelial Cells Occasional/hpf (NONE-MOD) Urine Crystals Oxalic acid crystals (NONE Urine Bacteria Few/hpf (NONE-FEW) Urine Hyaline Casts Occasional/lpf (NONE) Urine Granular Casts None seen (NONE SEEN) Urine Waxy Casts None seen (NONE SEEN) Urine Red Blood Cell Casts Rare (NONE SEEN) Urine White Blood Cell Casts None seen (NONE SEEN) Urine Mucus None seen (None Seen) Urine Trichomonas None seen (NONE SEEN) Urine Yeast None (NONE SEEN) Urinalysis Comment None Urine Culture Reflexed Not indicated X-Ray Chest Interpretation Chest Xray Interpretation: IMPRESSION: Bibasilar atelectasis. Recommend an upright PA and lateral chest radiograph performed in the radiology when the patient is able. Dictated by: Boris Ferrer M.D. on 03/11/2017 at 7:45 Approved by: Boris Ferrer M.D. on 03/11/2017 at 7:47 ED MD read: Left perihilar infiltrates vs edema View: Portable, 1 view Interpretation / Wet Read by: Interpret - ED physician, Interpret - Radiologist Re-Eval/Medical Decision Med Decision/Clinical Course 62-year-old female history of cirrhosis, Presley, insulin-dependent diabetes, recent admission for hepatic encephalopathy several weeks ago presenting with altered mental status times one day. Patient also with some nausea and vomiting yesterday per family. On arrival she is somnolent but arousable. Her vital signs are stable. Her blood pressures were borderline low with maps in the high 60s. Portable chest x-ray is clear repeat two-view chest x-ray is pending. Urine dip is negative for infection formal urinalysis pending. Her labs show a creatinine of 5 BUN of 100 comparison to creatinine of 1.3 3 weeks ago. Her lactate is 2.6. Troponins are 0.1. Her white blood cell count is normal. Potassium is 6.3. Patient discussed with nephrology who will see the patient emergently. Probable dialysis. Renal ultrasound no hydronephrosis. CT head and CT abdomen are pending as patient could not lay still. Patient will be admitted to ICU for altered mental status, acute renal failure, lactic acidosis, hyperkalemia, elevated troponins, hepatic encephalopathy. Altered mental status likely due to hepatic encephalopathy as well as acute renal failure. Possible hepatorenal syndrome. Admitted to hospitalist. Re-Evaluation/Progress : Time of Eval: 07:30 Re-Evaluation/Progress Note: Rechecked patient. Discussed lab results with patient and family. Dicussed plan for admission. Patient and family understand and agree with plan. All questions addressed at this time. Consultation #1: Referral / Consult Name: Teresita Kamara MD Consulted With: Nephrology Call Returned at: 08:09 Safekeeping Clerk: Will see patient, Agrees with eval, Agrees with plan Note: Discussed pt's case. Will see pt. Consultation #2: Referral / Consult Name: Enio Murphy MD Consulted With: Hospitalist Call Returned at: 08:44 Safekeeping Clerk: Will see patient, Agrees with eval, Agrees with plan, Accepts admit Note: Discussed pt's case. Accepts admit. No abx at this time. Counseled Regarding: Diagnosis, Lab results, Need for admission Patient Discharge & Departure Departure Notes 62-year-old female history of cirrhosis, Presley, IDDM Impression: Primary Impression: Altered mental status Altered mental status type: unspecified Qualified Code: R41.82 - Altered mental status, unspecified Additional Impressions: Hepatorenal failure Hepatic encephalopathy Hyperkalemia Lactic acidosis Elevated troponin Disposition: ADMITTED TO HOSPITAL Discharge Condition All VS Reviewed: Yes Condition: Stable [facility] Except Billable Proc Time Spent: 30-74 minutes Services Performed: Patient management by me, Time spent at bedside, Reviewing test results, Reviewing imaging, Discussing patient care, Documentation in record, Time with fam/surrogate Scribe Attestation Portions of this note were transcribed by Keon Díaz. I, Dr. Clay personally performed the history, physical exam and medical decision-making; I reviewed and confirmed the accuracy of the information in the transcribed note. Signed by: Urszula Peacock, 03/11/17 at 0853. copies to: [facility] Carrie QUESADA Ben M MD Mar 11, 2017 06:20 KEON DÍAZ Mar 11, 2017 06:28
[2017-03-11] MEDS ORDERED: 0.9% Sodium Chloride 500 ML IV ONE ×2 (06:29→10:10)
[2017-03-11] MEDS ORDERED: Ondansetron 2 mg/mL 2 mL Inj IVPUSH PRN ×4 (06:30→15:00)
[2017-03-11] MEDS ORDERED: Rocuronium 10 mg/mL 5 mL Inj ONE (06:33)
[2017-03-11] MEDS ORDERED: Etomidate 2 mg/mL 20 mL Inj IV ONE (06:33)
[2017-03-11 07:04] LABS: Magnesium 2.6 mg/dL (1.6-2.6)
[2017-03-11 07:12] LABS: BASOPHILS % (AUTO) 0.1 % (0-3); EOSINOPHILS % (AUTO) 0.1 % (0-5); MONOCYTES % (AUTO) 3.2 % (4-12); Mean Corpuscular Hemoglobin 29.9 pg (27.0-35.0); Mean Corpuscular Volume 82.4 fL (81-100); NEUTROPHILS % (AUTO) 80.8 % (40-74); Platelet Count 89 bil/L (150-400)
--- NOTE | 2017-03-11 07:49 | DRSVH ---
PROCEDURE: X-RAY CHEST ONE VIEW, PORTABLE ([id number]) INDICATIONS: altered mental status TECHNIQUE: One view of the chest was acquired. COMPARISON: [facility], CR, XR CHEST 1VW (PORTABLE), 02/14/2017, 15:56. FINDINGS: Surgical changes and devices: Right upper quadrant surgical clips. Lungs and pleura: No pleural effusions or pneumothorax. Basilar atelectasis. Mediastinum: Prominent cardiomediastinal silhouette. Bones and chest wall: No suspicious bony lesions. Overlying soft tissues appear unremarkable. IMPRESSION: Bibasilar atelectasis. Recommend an upright PA and lateral chest radiograph performed in the radiology when the patient is able. Dictated by: Boris Ferrer M.D. on 03/11/2017 at 7:45 Approved by: Boris Ferrer M.D. on 03/11/2017 at 7:47
[2017-03-11] MEDS ORDERED: Lactulose 20 Gm/30 mL 30 mL Syrup PO ONE (08:15)
[2017-03-11] MEDS ORDERED: Alum-Mag Hydrox-Simeth 30 mL Suspension PO PRN ×2 (08:50→14:25)
[2017-03-11 08:51] LABS: APPEARANCE,URINE HAZY (CLEAR,HAZY); COLOR,URINE DARK YELLOW (YELLOW); OCCULT BLOOD,URINE LARGE (NEGATIVE); UROBILINOGEN,URINE NORMAL (NORMAL)
[2017-03-11] MEDS ORDERED: Insulin Human REGular-Omnicell 100 Unit/mL IV ONE (08:55)
[2017-03-11] MEDS ORDERED: [UNRECOGNIZED DRUG - OTHER] IV ONE (08:55)
[2017-03-11] MEDS ORDERED: Albuterol 2.5 mg/3 mL Inhalation Solution NEB ONE ×3 (08:55→19:00)
--- NOTE | 2017-03-11 08:55 | DRSVH ---
PROCEDURE: US RENAL SONOGRAM INDICATIONS: acute renal failure TECHNIQUE: Real-time scanning was performed of the kidneys and bladder, with image documentation. COMPARISON: [facility], US, [facility], 11/18/2016, 8:40. FINDINGS: Kidneys: Kidneys are normal in size. Right kidney measures 11.9 cm long; left kidney measures 11.2 cm long. Right renal cortical thickness is 1.8 cm; left renal cortical thickness is 1.5 cm. Renal c ortical echotexture is normal. No hydronephrosis or nephrolithiasis. No suspicious solid mass lesio ns. Bladder: The bladder could not be effectively imaged due to the patient's general medical condition. Miscellaneous: No free pelvic fluid. IMPRESSION: No hydronephrosis or large renal masses. The bladder could not be effectively imaged due to the patient's general medical condition. Dictated by: Boris Ferrer M.D. on 03/11/2017 at 8:51 Approved by: Boris Ferrer M.D. on 03/11/2017 at 8:53
[2017-03-11] MEDS ORDERED: Dextrose 10% 250 ML IV ONE (09:50)
[2017-03-11] MEDS: Lactulose 200 GM/Bottle Enema RECTAL SCH ×4 (10:35→22:35)
[2017-03-11] MEDS: 0.9% Sodium Chloride 1,000 ML IV SCH (12:20)
--- NOTE | 2017-03-11 12:33 | CONS ---
[address] [address] CONSULTATION REPORT PATIENT: NILESH SPRINGER : 1955 MR#: [id number] ADMIT: 03/11/2017 JOB ID: [id number] DATE OF SERVICE: 03/11/2017 NEPHROLOGY CONSULTATION: REQUESTING PHYSICIAN: Paramjit Parks MD REASON FOR CONSULTATION: Management of acute kidney injury and hyperkalemia. CHIEF COMPLAINT: Altered mental status. HISTORY OF PRESENT ILLNESS: This is a 62-year-old lady with significant past medical history of chronic liver cirrhosis secondary to MSOHER, history of hepatic encephalopathy, hypertension, type 2 diabetes, chronic kidney disease stage 3, who presented to the hospital due to altered mental status. The patient now is very obtunded. She is not able to provide us any medical history. Her family is at the bedside. They are Syriac-speaking only. I have my medical student help us translate. According to the family the patient has stopped taking lactulose for several days. They reported that she does not like to have watery diarrhea. When she goes out running errands. The family stated that she became confused and obtunded one day prior to the admission. She also experienced nausea and vomiting. She had multiple episodes of coffee ground emesis. Therefore, they brought her to the hospital for further investigation. The patient was admitted in January 2017 due to hepatic encephalopathy. Her initial blood work showed the ammonia level of 307. Initial BUN and creatinine were 102 and 5.4, respectively. Sodium was 128 and potassium was 6.3. Of note, the patient has been taking three diuretics including furosemide, spironolactone, and torsemide. PAST MEDICAL HISTORY: 1. Chronic liver cirrhosis secondary to nonalcoholic steatohepatitis. 2. Hepatic encephalopathy. 3. Type 2 diabetes. 4. Chronic kidney disease stage 3. 5. Hypertension. 6. Portal hypertension. 7. GERD. 8. Chronic thrombocytopenia. PAST SURGICAL HISTORY: Status post cholecystectomy. FAMILY HISTORY: No kidney disease in the family. SOCIAL HISTORY: Denies current use of alcohol, tobacco, or illicit drugs. ALLERGIES: No known drug allergies. REVIEW OF SYSTEMS: Unable to obtain due to mentation. HOME MEDICATIONS: Amlodipine, fluoxetine, furosemide, Lantus, lactulose, levothyroxine, spironolactone, torsemide, and tramadol. PHYSICAL EXAMINATION: Temperature 36.6, pulse 98, respiratory 25, blood pressure 145/81, O2 sat 99% on room air. General appearance: Obtunded, moaning in pain. Localized pain. Unresponsive to verbal stimuli. HEENT: Atraumatic. Moist mucous membranes. PERRLA. Mild pallor and icteric sclerae. No JVD. No lymphadenopathy. No thyroid enlargement. Heart: Regular rhythm. Normal S1, S2. Soft systolic murmur noted. Lungs: Clear to auscultation bilaterally. No wheezing. No rhonchi. No accessory muscle use. Abdomen: Soft, obese. Active bowel sounds. No fluid shift or fluid thrill. Extremities: Trace edema on the lower extremities. LABORATORY: WBC 8.1, hemoglobin 9.5, platelets 89, sodium 128, potassium 6.3, chloride 94, bicarb 11, BUN 102, creatinine 5.4, glucose 182. Lactic acid 2.4. Total bilirubin 2.4, AST 41, ALT 33, alkaline phos 275. Ammonia 307. Troponin 0.161. Albumin 2.7. Lipase 190. IMAGING: Kidney sonogram: No hydronephrosis or large renal masses. Unable to evaluate the bladder. Chest x-ray: Bibasilar atelectasis. ASSESSMENT: 1. Acute kidney injury on chronic kidney disease. The patient has been taking three diuretics according to the family. She has not had any good appetite over the past 1-2 days. Kidney sonogram does not show any obstruction and there was no free pelvic fluid identified. The etiology of acute kidney injury at this point I think is related to over-diuresis. I will go ahead and give the patient normal saline bolus 500 mL x1 and run at 100 mL/hour. Repeat her BMP afterwards. If worsens will consider renal replacement therapy. 2. Hyperkalemia secondary to medication, intravascular volume depletion, and metabolic acidosis. Will try medical management for now and repeat potassium level afterwards. 3. Anion gap metabolic acidosis. Likely due to lactic acidosis and uremia. 4. Lactic acidosis. Could be related to liver cirrhosis. 5. Elevation of serum troponin in the setting of acute kidney injury. 6. Elevation of lipase in the setting of acute kidney injury. 7. Hyponatremia. 8. Hepatic encephalopathy. PLAN: 1. We will start off with medical management for now. Will give patient normal saline bolus and continue drip at 100 mL/hour. 2. Discontinue all diuretics. 3. Start medical management for the hyperkalemia. 4. Repeat BMP within 2-3 hours after the treatment. 5. Check serum osmo and urine osmo. 6. Check TSH. Thank you for allowing me to participate in the care of your patient.
[2017-03-11] MEDS ORDERED: Polyethylene Glycol (PEG) 17 Gm Powder PO PRN (14:25)
--- NOTE | 2017-03-11 14:43 | ABG ---
DateTimeAnalyzed 14:32:05 -_ pH ____7.378 - 7.350 7.450 pCO2 ___19.1__ -mmHg 35.0 45.0 pO2 ___94.6__ -mmHg 70.0 100 HCO3- ___11.3__ -mmol/L 22.0 26.0 ABE __-12.8__ -mmol/L -2.0 2.0 tHb ____9.0__ -g/dL 12.0 18.0 O2Hb ___97.0__ -% 95.0 COHb ____1.7__ -% 1.5 MetHb ____0.0__ -% 0.4 1.5 sO2 ___98.7__ -% FIO2 ___21.0__ -% Drawn By RC - Date/Time Notified____ 14:42:00 -_ Notified By RC - Notified Whom ___DR. MCCART - K+ ____5.4__ -mmol/L tO2 ___12.4__ -Vol% Enio test _Positive -
[2017-03-11 15:27] LABS: INR 1.05 ratio
[2017-03-11] MEDS ORDERED: Sodium Bicarb (50 mEq) 8.4% 1 mEq/mL 50 mL Syringe IVPUSH ONE (15:50)
[2017-03-11 16:03] LABS: Magnesium 2.5 mg/dL (1.6-2.6); Phosphorus 6.9 mg/dL (2.5-4.9)
--- NOTE | 2017-03-11 16:20 | NUR ---
Admit Pt arrived to CCU room #2016 from ED. Pt Swiss speaking only with 2 daughters who speak some Syriac. Forming Tube Selector at bedside. Pt very confused and not following commands. Placed vieyra catheter, dark andressa urine output. NPO. Second peripheral IV placed. Fluids pushed. Lactulose enema given with extra large output. MRSA swab sent. RR increased to 30-37 with apparent respiratory distress. ABG's ordered ph=7.3. 50ml Bicarb push given. Hemodialysis catheter placement and emergent dialysis ordered. Consent signed with family, RN, and MD.
--- NOTE | 2017-03-11 17:46 | CONS ---
[address] [address] CONSULTATION REPORT PATIENT: NILESH SPRINGER : 1955 MR#: [id number] ADMIT: 03/11/2017 JOB ID: [id number] DATE OF SERVICE: 03/11/2017 PULMONARY CRITICAL CARE CONSULTATION NOTE: The patient is a 62-year-old woman seen in consultation at the request of Dr. Parks for acute renal failure and severe metabolic acidosis in the setting of known cirrhosis due to MOSHER. The patient was seen and evaluated with resident physician, Dr. Reagan. Please refer to his separate detailed note for additional information. The following is a brief attending note. HISTORY OF PRESENT ILLNESS: A 62-year-old woman who has known cirrhosis due to MOSHER with portal hypertension, type 2 diabetes and chronic kidney disease. She started having nausea and vomiting yesterday, according to her daughter, but continued taking her diuretics despite that. She was brought into the emergency department for continued nausea, vomiting, dyspnea today and found to have severe kidney injury with creatinine up to greater than 5 and potassium greater than 6. Her baseline creatinine is 1.3. She was quickly moved to the ICU where she is currently. She is currently unable to provide me any history, moaning, in distress with dyspnea trying to compensate for her respiratory acidosis, although hemodynamically stable. She is in the process of having a dialysis catheter placed at this time. Past medical history, social history, family history, and review of systems are per Dr. Reagan's separate detailed note. Please refer to that. Of note, she does have: 1. Diabetes. 2. 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 3. Chronic kidney disease with baseline creatinine 1.3. She is Slovak-speaking and her children are with her at the bedside. PHYSICAL EXAMINATION: Vital signs reviewed. She is febrile to 38.2, pulse 107, respirations 36, BP 156/48, and sats 100% on room air. General: She is a short, morbidly obese woman who is in distress breathing fast. Chest: Clear to auscultation bilaterally. Heart: Regular rate, rhythm. Abdomen nontender. Extremities: No cyanosis, clubbing, but she does have edema. LABORATORIES: Reviewed. Notable for a stable hemoglobin 9.5, sodium 129, potassium 6.2, bicarb of 11, BUN of 107 and creatinine of 5.5. She also has some elevated liver enzymes and lipase. Chest x-ray is relatively clear with minimal basilar atelectasis. ASSESSMENT AND RECOMMENDATIONS: 1. Acute renal failure. 2. Severe hyperkalemia. 3. Severe metabolic acidosis with adequate respiratory compensation. 4. Respiratory distress due to compensation for metabolic acidosis. 5. Morbid obesity. 6. Nonalcoholic steatohepatitis (MOSHER) with cirrhosis and portal hypertension. RECOMMENDATIONS: This complex 62-year-old woman is here with acute renal failure most likely due to dehydration in combination with diuretic use in the setting of nausea and vomiting. She has multiple indications for emergent dialysis including hyperkalemia and metabolic acidosis, but seems to be compensating very well for it at this time on her own. I think it would be a bad idea to electively intubate her, in fact, we should be working on her metabolic acidosis. Dr. Hannah is placing a femoral dialysis catheter for emergent dialysis and I think this will be the best step for her. If necessary, we could use BiPAP to help her respirations, but at the moment, she does not appear to need it and is doing well on her own. She needs scheduled lactulose at least three times a day and we should not hold this. There is no indication for antibiotics or other acute issues at this time. She does meet indication for DVT prophylaxis but not GI prophylaxis. There appears to be no evidence of GI bleeding at this time. She is a FULL CODE. I spoke with her children at the bedside and updated them. TIME: Critical care time is 60 minutes. JEMIMA
--- NOTE | 2017-03-11 18:04 | PCM.CHPMED ---
Subjective Date of Service: Mar 11, 2017 Primary Physician: Admitting Physician: Enio Murphy MD Primary Care Physician: [facility] Carrie Sanchez Attending Physician: Eino Murphy MD Chief Complaint: Chief Complaint: Pulmonary critical care consultation Wesley Jimenezh (Papi) PGY3 and Attending Dr. Spence Patient is a 62-year-old speaking only female with medical history significant for liver cirrhosis secondary to Presley with portal hypertension and recurrent hepatic encephalopathy with most recent admission on 02/14/2017. History of Present Illness: On this admission, patient presented with nausea and vomiting started yesterday per family that later progressed to alter mental status significantly decrease, thus brought to the ED for further evaluation. Patient has not taken lactulose for the past 3-5days per family. At baseline, patient mentating well, able to "Facebook". Per OCT, Pt on 3 diuretics, spironolactone, furosemide, and torsemide. Patient is further lived at home alone, although medication is managed by one of her daughters. They report adherence to all medication except lactulose. Review of Systems: A comprehensive review of systems was conducted with the patient and found to be negative except as above in the History of Present Illness. PMH Past Medical History Liver cirrhosis secondary to PRESLEY, no history of hepatitis C - Portal hypertensive gastropathy - Grade 2 distal esophageal varices Heart primary with preserved ejection fraction grade 1. Pulmonary hypertension- right ventricular pressure 40 mmHg 11/11/2016 Subacute hypothyroidism Hypertension with hypertensive heart Depression Diabetes type II Chronic kidney disease baseline creatinine 1.3 GERD Bedside Blood Glucose: 190 Surgical History Cholecystectomy Home Medications Amlodipine 2.5 mg daily Fluoxetine 20 mg daily Furosemide 80 mg daily Insulin Lantus 50 units daily Lactulose 20 gm titrated to 3 bowel movements daily Levothyroxine 50 MCG daily Spironolactone 100 mg qd Torsemide 20 mg qd Tramadol 50 mg every 12 hours when necessary Allergies: Coded Allergies: No Known Allergies (Verified Allergy, Unknown, 03/11/17) Family History Family History No family history of liver disease or coronary disease Social History Hx Alcohol Use: NoHx Substance Use: NoHx Tobacco Use: No Smoking Status: Never Smoker Exam Vital Signs Vital Sign - Last Date Time Temp Pulse Resp B/P Pulse Ox O2 Delivery O2 Flow Rate FiO2 03/11/17 16:25 38.2 107 36 156/48 100 CONT NEB Intake and Output 03/10/17 03/10/17 03/11/17 Cumulative From/Thru 15:00 23:00 07:00 03/11/17 06:07 - 03/11/17 06:28 Intake Total 1000 ml 1000 ml Balance 1000 ml 1000 ml Intake IV Total 1000 ml 1000 ml Additional Information: General: Mentally altered, mild respiratory distress HEENT: Normocephalic, atraumatic. PERRLA, sclera icteric Neck: No JVD, No bruits. No lymphadenopathy or thyromegaly. Cardiovascular: Tachycardic regular rhythm, no appreciable murmur rub or gallop Pulmonary: b/l air sound with no crackles, wheezes, or rhonchi. Abdomen: +Bowel sound, Soft, nontender, nondistended. No signs of ascites Extremities: No clubbing or cyanosis, no lymphedema, moderate 2+ pitting edema Skin: Normal temperature, turgor, and texture; no rash. No visualized skin ulcer. Neurological: Mentally altered, moaning, moving equally on all 4 extremities Lab and Diagnostics Result Diagram: 03/11/17 0620 03/11/17 1407 Assessment & Plan Assessment Patient is a 62-year-old female with medical history significant for diabetes type II, CKD, liver cirrhosis with portal hypertension on 3 diuretics, had significant nausea, vomiting, and altered mentation admitted to the ICU for acute kidney injury with emergent dialysis given hyperkalemia. Problem list # Anion gap metabolic acidosis # Encephalopathy secondary to metabolic and hepatic # Acute on chronic kidney injury secondary to over diurese # Hyperkalemia # Liver cirrhosis 2nd to PRESLEY Uncertain the source of nausea vomiting, possible gastritis, gastroparesis, versus hepatic encephalopathy; got dehydrated while taking 3 diuretics thus, developed a CARITO with anion gap metabolic acidosis. Alter mentation may be secondary to electrolyte abnormalities, hyperuricemia or alternatively hepatic related- hyperammonemia causing encephalopathy. Anion gap metabolic acidosis - 2nd to uremia with respiratory compensation - Should RR decrease, consider BIPAP Encephalopathy - Multifactorial causes: electrolyte abnormality, hyperuricemia, liver cirrhosis - Emergent dialysis. - [employer] Systems Engineer Teresita Vásquez has been consulted and following patient - Lactulose Q4H, will need to change to oral lactulose once she can safely take PO meds - CT-Head to r/o intracranial pathologies Acute on chronic kidney injury - Secondary to overdiuresis on top of dehydration from vomiting and poor by mouth intake - Emergent dialysis per nephrology Teresita Barker - Monitor urine output, limit nephrotoxic medication Hyperkalemia - Secondary to CARITO-metabolic acidosis - No EKG changes - Albuterol, insulin, glucose, Kayexalate has been given - Emergent dialysis as above Liver cirrhosis - With secondary splenic sequestration, thrombocytopenia, portal hypertension , esophageal varices - holding off home Lasix, spironolactone, and torsemide till renal function improves - Monitor for any signs of bleeding DVT prophylaxis: heparin subq GI prophylaxis: not indicated at this time Code Status: FULL CODE per family Total critical care time 1hr Addendum Acute on chronic kidney injury - Secondary to overdiuresis on top of dehydration from vomiting and poor by mouth intake - Emergent dialysis per nephrology Teresita Barker - Monitor urine output, limit nephrotoxic medication - Unsuccessful placement of HD catheter for dialysis, unable to withdraw right femoral guidewire due to a kink caused by significant agitation - Pt intubated, sedated, and will be taken to research laboratory technician for IJ HD catheter placement under fluoroscopy and also removal of guidewire. Bacteremia - 3/4 positive streptococcal on Gram stain - Unknown source at this time - Sputum culture ordered - Place patient on Rocephin. - Will likely need ID Dr. Arnett consultation in the a.m. Problems: Attending Statement I have seen and examined this patient with the resident physician. Vital signs , labs, imaging have been reviewed. I agree with the assessment and plan above. Please refer to my separately dictated progress note for any modifications to above. Araseli Spence M.D. Pulmonary and Critical Care medicine Pager [phone] Wesley Reagan DO Mar 11, 2017 18:04 Araseli Spence MD Mar 12, 2017 16:12
[2017-03-11] MEDS ORDERED: fentaNYL-PF 50 mCg/mL 2 mL Inj IVPUSH ONE ×2 (18:20→18:25)
--- NOTE | 2017-03-11 18:55 | PCM.HPMED ---
Subjective Date of Service Mar 11, 2017 Primary Provider: Admitting Physician: Enio Murphy MD Primary Care Physician: [facility] Carrie Sanchez Attending Physician: Enio Murphy MD Chief Complaint: Altered mental status History of Present Illness: Ms. Shania To is a 62 year old primary mongolian speaking lady, here due to hepatic encephalopathy, non alcoholic steatohepatits, acute renal failure, and Insulin dependent Diabetes mellitus here today for 1 day history of decreased mental status reported by family members, namely daughters that she lives with. Family reports 2 days prior to admission she had nausea, vomiting, decreased appetite, and had stopped taking home meds (lactulose). The vomit was described as coffee colored and watery. They also report a productive cough with small amounts of brown sputum. They also note decreased stools from baseline. They denied fever, syncope, Headache, shortness of breath, abdominal pain, diarrhea, dysuria. She has a long history of hepatic encephalopathy. In the ED her vitals 36.8, HR 66, RR 18, BP 135/59, 96% RA. In the ED the patient received Rectal Lactulose and NS IV fluids. Review of Systems: A comprehensive review of systems was conducted with the patient and found to be negative except as above in the History of Present Illness. Allergies Coded Allergies: No Known Allergies (Verified Allergy, Unknown, 03/11/17) Home Medications Amlodipine (Amlodipine) 2.5 Mg Tablet 2.5 MG PO DAILY Fluoxetine (Fluoxetine) 20 Mg Capsule 20 MG PO DAILY Furosemide (Furosemide) 80 Mg Tab 80 MG PO DAILY Insulin Glargine (Lantus U100 Solostar Insulin Pen) 100 Unit/1 Ml Insuln.pen 50 UNIT SUBQ DAILY Lactulose (Lactulose) 20 Gm/30 Ml Solution 20 GM PO DIRECTED take 2-6 times daily with goal of 2-3 bowel movements per day. Levothyroxine (Levothyroxine) 50 Mcg Tablet 50 MCG PO DAILY Spironolactone (Spironolactone) 100 Mg Tablet 100 MG PO DAILY Torsemide (Demadex) 20 Mg Tablet 20 MG PO DAILY PMH Hepatitis C uncertain means of acquisition 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 Portal hypertension with leg edema and ascites c. Hypervolemic hypotonic hyponatremia secondary to cirrhosis Insulin dependent type 2 diabetes Hypertension GERD End Stage Liver Disease with Anasarca Reports: Depression Surgical History Cholecystectomy Family History Family unable to reports. Social History Hx Alcohol Use: No Hx Substance Use: No Hx Tobacco Use: No Smoking Status: Never Smoker Living Arrangement: with Family (With Daughter. ) Exam Vital Signs Vital Sign - Last Date Time Temp Pulse Resp B/P Pulse Ox O2 Delivery O2 Flow Rate FiO2 03/11/17 16:25 38.2 107 36 156/48 100 CONT NEB Intake and Output 03/10/17 03/10/17 03/11/17 Cumulative From/Thru 15:00 23:00 07:00 03/11/17 06:07 - 03/11/17 06:28 Intake Total 1000 ml 1000 ml Balance 1000 ml 1000 ml Intake IV Total 1000 ml 1000 ml Exam General: Decreased level of consciousness, moans and responds to questions. Obese. HEENT: Normocephalic, atraumatic. External ears without defect. Pupils equal, round, and reactive to light and accommodation. Anicteric sclerae, moist conjunctivae, and no lid lag. Oropharynx free of erythema and cobble stoning with moist mucosa. Neck: Supple with full range of motion. No jugular venous distension. No bruits. No lymphadenopathy or thyromegaly. Cardiovascular: Tachycardic rate and rhythm with no murmurs, rubs, or gallops appreciated Pulmonary: Clear to auscultation bilaterally with no crackles, with minor diffuse wheezes, or rhonchi. Tachypnic Normal respiratory effort with no use of accessory muscles. Abdomen: Bowel tones present. Soft, Obese, scattered bruising, Possibly tender to palpation diffusely , nondistended. No hepatosplenomegaly or masses appreciated. Extremities: No clubbing, cyanosis, Moderate pitting edema to the knees, no lymphadenopathy appreciated. Skin: Normal temperature, turgor, scattered bruising, fragile with new skin tares and texture; no rash, ulcers, or subcutaneous nodules appreciated. Neurological: Unable to fully appreciate due to altered mental status. Psychiatric: Unable to fully appreciate due to altered mental status. Lab and Diagnostics Result Diagram: 03/11/17 0620 03/11/17 1407 Cardiac Echo Impressions Echocardiogram Interpretation Summary Borderline concentric left ventricular hypertrophy with ejection fraction 60- 65%. Grade I diastolic dysfunction. No valvular abnormality. Comparison is made with the echocardiogram of 11/11/2016, there has been no significant change. Additional Diagnostics: AGB DateTimeAnalyzed 14:32:05 -_ pH ____7.378 - 7.350 7.450 pCO2 ___19.1__ -mmHg 35.0 45.0 pO2 ___94.6__ -mmHg 70.0 100 HCO3- ___11.3__ -mmol/L 22.0 26.0 Assessment & Plan Ms. Shania To is a 62 year old lady here due to hepatic encephalopathy, non alcoholic steatoHepatits, Acute renal failure, and Insulin dependent Diabetes mellitus requiring emergent hemo-dialysis and lactulose treatments. Acute Renal Failure, Present on admission. Active. - Initially thought to be 2nd to pre-renal azotemia. - Creatinine 5.4, baseline 1.3. BUN 102. - Monitor I/O, Amya in place. - IV fluids given NS @ 100 ml/hr. - Nephrology consulted, recommendations appreciated. - Hemo-dialysis cath placed in IJ by Dr. Kamara, and Dr. Mendoza. - Plan for Hemo-dialysis. Severe Sepsis, not present on admission. Active. - Temp 38.2, HR 107, RR 36. Cre 5.4. - Blood cx x2 pending. - UA wnl, aside from RBC 11-50. Hepatic Encephalopathy, Present on admission. Active. - 2nd to endstage liver cirrhosis/MOSHER. - History of Grade 2 esophageal varicies (August), Portal htn gastropathy. - Hep B pending. - Ammonia 307 initially. - Lactulose at 200 mg rectally Q4H with rectal ballon 30-[address] mins. FMS tube in place. Acute Hyperkalemia, Present on admission. Active. - 2nd to renal failure. - K+ - 6.3 - EKG reviewed, with no T wave abnormalities. NSR. - 10 mg Nebulized Albuterol, insulin and glucose given. Mixed Anion Gap Metabolic Acidosis and alkalosis and Respiratory Alkalosis. Present on admission. Active. - AG - 22, Delta AG 10, Delta Bicarb 13. calculated PaCO2 24. - Fluids given, HD planned. No Bicarb ggt available, Na-Acetate contraindicated , Bicarb IV push 50 mEq given. - ABG as above. - Lactic acid 2.4, repeat pending. Grade 1 Diastolic Heart failure, chronic. Present on admission. Active. - With pulmonary hypertension. - ECHO February 16 as above. Insulin Using Diabetes Mellitus, Present on admission. Active. - Continue home Lantus 50 U daily. - Heart healthy/Carb consistent diet. - High dose correctional scale. - Glu 244. - HA1c pending. Acute on Chronic Normocytic Anemia, Present on admission. Active. - Hgb 9.5, many past values of between 9-10. - Monitor. Chronic Thrombocytopenia. Present on admission. Active. - Likely Splenic sequestration. - Monitor. Demand Ischemia, with elevated Troponins. Chronic, present on admission. Active. - Elevated tropes - 0.166, with Q6 H trend. No EKG changes. - Previous tropoinins elevated. - Stress test 02/16/17 showed no ischemia. Morbid Obesity. - BMI 41.1 Hypertension, chronic. - Continue home meds when appropriate. Subclinical Hypothyroidism,acute on chronic. - Continue home Synthroid. Will give IV tomorrow if cant tolerate PO. Acetaminophen for mild pain when necessary. Bowel regimen Senna and MiraLAX scheduled and PRN. Zofran when necessary for nausea and vomiting. SubQ heparin held for now. SCDs in place. High-risk medications: - Disposition: Likely here for > 2 midnights. Dependent upon mental status and renal function. Will be discharged to likely home when medically stable. Pain Evaluation: Adequate Pain Control Resuscitation Status: CPR: Attempt Resuscitation Attending Statement The patient was seen and examined together with Dr. Jason on 03/11/2017 and I agree with the history, exam and plan as outlined in the note above. . LORAINE JASON DO Mar 11, 2017 17:48 Paramjit Parks MD Mar 13, 2017 17:31
[2017-03-11] MEDS ORDERED: Calcium GLUCO 10% (Gm) Inj 1 GM in 0.9% Sodium Chloride 50 ML IV ONE (19:00)
--- NOTE | 2017-03-11 19:07 | PCM.PROC ---
Procedure Note Date of Service: Mar 11, 2017 Pre Procedure Diagnosis: CARITO, metabolic acidosis Procedure: Nontunneled catheter placement Indication for Procedure: CARITO, metabolic acidosis, hyperkalemia Procedure Details: Consent: Detailed explanation of the procedure, treatment options, risks including but not limited to infection and bleeding, and benefits were explained to family. A written informed consent was obtained. Technique: A time out was preformed identifying the correct procedure, the correct location with the nursing staff. The right groin was prepped with 2% chlorhexidine and draped with a full length sterile sheet in the usual fashion. 1% lidocaine was administered subcutaneously for local anesthesia. The right femoral vein was accessed under ultrasound guidance with an 18 gauge thin wall needle. Multiple attempts without success. Procedure aborted. EBL: 5 mL. No immediate complication. Will contact club attendant to assist us with catheter placement. Teresita Kamara MD Mar 11, 2017 19:07
--- NOTE | 2017-03-11 19:19 | ABG ---
DateTimeAnalyzed 19:12:34 -_ pH ____7.392 - 7.350 7.450 pCO2 ___17.3__ -mmHg 35.0 45.0 pO2 162 -mmHg 69.0 116 HCO3- ___10.5__ -mmol/L 22.0 26.0 ABE __-13.4__ -mmol/L tHb ____7.8__ -g/dL O2Hb ___99.1__ -% COHb ____1.5__ -% 1.5 MetHb ____0.0__ -% FIO2 ___21.0__ -% Drawn By md - Date/Time Notified____ 19:19:00 -_ Liter_Flow ____6.00_ -L/min Oxygen Device 1 __CANNULA - Notified By MD - Notified Whom RN J.HERLICKSON - K+ ____4.9__ -mmol/L Enio test N/A -
--- NOTE | 2017-03-11 19:38 | OP ---
[address] [address] OPERATIVE REPORT PATIENT: NILESH SPRINGER : 1955 MR#: [id number] ADMIT: 03/11/2017 JOB ID: [id number] DATE OF SURGERY: 03/11/2017 SURGEON: Mayur Mendoza MD PREOPERATIVE DIAGNOSIS(ES): Acute renal failure. POSTOPERATIVE DIAGNOSIS(ES): Acute renal failure. PROCEDURE: Unsuccessful attempt at dialysis catheter placement. METHOD: The right side of the neck area was initially prepped and draped under standard sterile technique. Ultrasound was used to identify the right internal jugular. However the patient did not cooperate; she kept moving her head. The right IJ approach was then abandoned. The right groin was then prepped and draped under standard sterile technique. Lidocaine 1% local anesthesia was used to infiltrate the skin. An 18-gauge needle was used to obtain venous access under ultrasound guidance. After the wire was in place, a dilator was advanced. However the patient bent her knee and caused the wire to kink. I could not advance the dilator and attempt to withdraw the wire was unsuccessful. The procedure was terminated. The patient will be brought to the woodworking shop laborer for dialysis catheter placement under fluoroscopy. JEMIMA
[2017-03-11] MEDS ORDERED: Propofol 10,000 mCg/mL 100 mL Inj ONE (19:42)
[2017-03-11] MEDS ORDERED: cefTRIAXone 2,000 mg/D5W 50 mL IV Minibag Plus IV SCH ×2 (19:54)
--- NOTE | 2017-03-11 20:24 | DRSVH ---
PROCEDURE: X-RAY CHEST ONE VIEW, PORTABLE ([id number]) INDICATIONS: POST INTUBATION, ET placement TECHNIQUE: One view of the chest was acquired. COMPARISON: [facility], CR, XR CHEST 1VW (PORTABLE), 03/11/2017, 6:58. FINDINGS: Surgical changes and devices: Interval intubation with ET tube tip presumably the silvano. Lungs and pleura: Elevation of left hemidiaphragm with left basilar atelectasis. Right lung is clear . Mediastinum: Mediastinal contours appear normal. Heart size is normal. Bones and chest wall: No suspicious bony lesions. Overlying soft tissues appear unremarkable. IMPRESSION: Interval intubation. Left hemidiaphragm elevation with left basilar atelectasis. Dictated by: Boris Ferrer M.D. on 03/11/2017 at 20:21 Approved by: Boris Ferrer M.D. on 03/11/2017 at 20:22
[2017-03-11] MEDS ORDERED: Heparin 10,000 Unit/1,000 mL NS Premix IV ONE (20:33)
[2017-03-11] MEDS ORDERED: Heparin 1,000 Unit/mL 10 mL Inj ONE ×2 (20:34→21:16)
[2017-03-11] MEDS: fentaNYL 2,500 mCg/250 mL 2,500 MCG in IV Premix 1 EACH IV SCH (20:36)
--- NOTE | 2017-03-11 21:47 | OP ---
[address] [address] OPERATIVE REPORT PATIENT: NILESH SPRINGER : 1955 MR#: [id number] ADMIT: 03/11/2017 JOB ID: [id number] DATE OF SURGERY: 03/11/2017 SURGEON: Mayur Mendoza MD PREOPERATIVE DIAGNOSIS(ES): Acute renal failure. POSTOPERATIVE DIAGNOSIS(ES): Acute renal failure. PROCEDURE: 1. Central venous access from the right IJ approach under ultrasound guidance. 2. Temporary dialysis catheter placement. 3. Femoral venous wire removal under fluoroscopy. COMPLICATIONS: None. DESCRIPTION OF PROCEDURE: The right side of her neck was prepped and draped under standard sterile technique. Central venous access was obtained from the right IJ approach under ultrasound guidance by using micropuncture needle. Dilator was performed to create a skin tract. A 13.5 Maori temporary dialysis catheter was then placed under fluoroscopy with the tip of the catheter at the junction of the superior vena cava and right atrium. This was secured in situ. The attention was then turned to the femoral wire. It was removed under fluoroscopy. The patient was then transferred to intensive care unit in stable condition. JEMIMA
--- NOTE | 2017-03-11 21:53 | PROCED ---
[address] [address] PROCEDURE NOTE PATIENT: NILESH SPRINGER : 1955 MR#: [id number] ADMIT: 03/11/2017 JOB ID: [id number] DATE OF SERVICE: PREOPERATIVE DIAGNOSIS(ES): POSTOPERATIVE DIAGNOSIS(ES): SURGEON: Mike Reagan MD INTUBATION NOTE: I was asked by the hospitalist to come place an invasive airway in this patient who Is suffering from respiratory distress. After review of the patient's history and pertinent labs, the decision was made to intubate. Consent was unable to be obtained as the patient was obtunded. After sufficient preoxygenation, induction was achieved in rapid sequence using 10 mg of etomidate, followed by 50 mg of rocuronium in the right upper extremity peripheral IV. However, this did not seem to achieve any affect. i believe that this IV was infiltrated. Thus, after rechecking her vitals and pre-oxygenating, another 10 mg of etomidate and 50 mg of rocuronium was given in another peripheral IV. This had its intended effect. After several seconds, the patient was relaxed. A GlideScope #3 was used to visualize the glottic opening, after which a 7.5-[place] Citizen high-low cuffed endotracheal tube was passed under visualization. Qualitative end title CO2 was confirmed. Breath sounds were a little weaker on the left side. The tube was pulled back about 21 cm at the lips. Chest x-ray is pending to confirm tube position. The patient's vital signs remained stable after the procedure.
--- NOTE | 2017-03-11 22:17 | ABG ---
DateTimeAnalyzed 22:09:28 -_ pH ____7.305 - 7.350 7.450 pCO2 ___25.7__ -mmHg 35.0 45.0 pO2 167 -mmHg 69.0 116 HCO3- ___12.8__ -mmol/L 22.0 26.0 ABE __-12.5__ -mmol/L tHb ____7.9__ -g/dL O2Hb ___99.0__ -% COHb ____1.3__ -% 1.5 MetHb ____0.1__ -% FIO2 ___21.0__ -% PEEP ____5.0__ -cmH2O Set_RR 26 -b/min Vt __400.0__ -L Drawn By MD - Date/Time Notified____ 22:17:00 -_ Spontaneous_RR 26 -b/min Oxygen Device 1 VENTILATOR - Notified By MD - Notified Whom RN J.HERLICKSON - K+ ____4.5__ -mmol/L Enio test N/A -
[2017-03-12] VITALS (21 sets, daily range): BP systolic 86–162; BP diastolic 36–67; PULSE 63–81; RESP 16–27; O2SAT 96–100
[2017-03-12] MEDS: 0.9% Sodium Chloride 1,000 ML IV SCH ×3 (00:08→18:44)
[2017-03-12] MEDS: fentaNYL 2,500 mCg/250 mL 2,500 MCG in IV Premix 1 EACH IV SCH ×2 (00:08→23:25)
[2017-03-12] MEDS: Propofol Inj 1,000,000 MCG in IV Premix 1 EACH IV SCH ×3 (00:09→23:29)
[2017-03-12] MEDS: Heparin 5,000 Unit/mL Inj SUBQ SCH ×4 (00:09→21:06)
--- NOTE | 2017-03-12 00:15 | NUR ---
Dialysis note: S/P catheter placement 2 hours tx 1500 ml net UF Right IJ catheter, dsg changed, sutures intact Hepatitis serologies drawn Pls see DTR for VS details Qb 250 w/ cath limbs reversed A-V V-A due to poor cath function Heparin prime given On vent @ 60% FiO2 w/ sat 100% Tolerated tx, cont'd on sedation Catheter flushed, heparin dwelled and secured Stable condition at end of tx Report given to Efren YORK
[2017-03-12] MEDS ORDERED: Heparin 5,000 Unit/mL Inj SUBQ SCH (00:30)
[2017-03-12] MEDS ORDERED: Vancomycin Inj 1,000 MG in IV Premix 1 EACH IV PRN (01:00)
[2017-03-12] MEDS ORDERED: LORazepam 100 mg/100 mL NS 100 MG in IV Premix 100 EACH IV SCH (02:32)
[2017-03-12] MEDS ORDERED: LORazepam Inj 100 MG in 0.9% Sodium Chloride 50 ML IV PRN (02:48)
[2017-03-12 02:51] LABS: EOSINOPHILS % (AUTO) 0 % (0-5); Mean Corpuscular Hemoglobin 29.7 pg (27.0-35.0); Mean Corpuscular Volume 85.4 fL (81-100); Platelet Count 59 bil/L (150-400)
[2017-03-12 02:59] LABS: Magnesium 2.1 mg/dL (1.6-2.6)
[2017-03-12 03:24] LABS: Phosphorus 7.2 mg/dL (2.5-4.9)
[2017-03-12 03:25] LABS: BASOPHILS % (AUTO) 0 % (0-3); MONOCYTES % (AUTO) 6 % (4-12); NEUTROPHILS % (AUTO) 78 % (40-74)
--- NOTE | 2017-03-12 03:40 | ABG ---
DateTimeAnalyzed 03:32:12 -_ pH ____7.398 - 7.350 7.450 pCO2 ___25.0__ -mmHg 35.0 45.0 pO2 136 -mmHg 69.0 116 HCO3- ___15.4__ -mmol/L 22.0 26.0 ABE ___-8.9__ -mmol/L tHb ____6.8__ -g/dL O2Hb ___98.7__ -% COHb ____1.3__ -% 1.5 MetHb ____0.2__ -% FIO2 ___21.0__ -% PEEP ____5.0__ -cmH2O Set_RR 22 -b/min Vt __400.0__ -L Drawn By MD - Date/Time Notified____ 03:39:00 -_ Spontaneous_RR 27 -b/min Oxygen Device 1 VENTILATOR - Notified By MD - Notified Whom DR HAUSANDERS - K+ ____4.4__ -mmol/L Enio test N/A -
[2017-03-12 04:47] LABS: BASOPHILS % (AUTO) 0.1 % (0-3); EOSINOPHILS % (AUTO) 0 % (0-5); MONOCYTES % (AUTO) 3.7 % (4-12); Mean Corpuscular Hemoglobin 29.3 pg (27.0-35.0); Mean Corpuscular Volume 85.2 fL (81-100); NEUTROPHILS % (AUTO) 91.7 % (40-74); Platelet Count 60 bil/L (150-400)
[2017-03-12 05:10] LABS: INR 1.24 ratio
--- NOTE | 2017-03-12 05:11 | PCM.CONPHA ---
Subjective Date of Service: Mar 12, 2017 Requesting Provider: Harvey Haider DO Altered mental status History of Present Illness a/ - 62 y/o female patient brought by her family for concerning of altered mental status. In ED, patient found to be in severe acidosis and acute renal failure required emergent dialysis. Ceftriaxone iv was given and to be continued - WBC: 8.1. Blood cultures showed positive for Gram positive cocci, MRSA ( PCR) is still pending. Afebrile at admission. Patient developed a temp of 38.2C after and was under acute respiratory distress which required to be intubated. Vancomycin initiated for empirical coverage of suspected bacteremia - Wt: 95.5kg, ht: 152.4cm, BMI: 41.1 kg/m2, SCr: 5.4mg/dL (baseline of 1.3) , estimated clearance~ 11ml/min - Nephrology follows and ID consult requested in am. Patient is planned to receive dialysis again on 03/12. IVF@100mg/hr p/ - Give Vancomycin 2G iv once after dialysis (20mg/kg) Floor pharmacist will follow up with am labs and determine random Vancomycin trough as well as next Vancomycin doses Thank you for consulting clinical pharmacy in the care of this patient Eugenia James Mar 12, 2017 05:11 03/12/17 03:46 84 133/50 100 40 03/12/17 00:19 82 118/49 100 40 03/12/17 00:00 36.8 78 26 86/49 100 Mechanical Ventilator 40 03/11/17 22:00 88 03/11/17 20:00 110 26 165/51 100 Mechanical Ventilator 03/11/17 19:54 111 168/60 100 60 03/11/17 16:25 38.2 107 36 156/48 100 CONT NEB 03/11/17 14:01 99 36 100 CONT NEB 03/11/17 09:07 36.6 98 25 145/81 99 Room Air 03/11/17 08:10 98 25 145/81 99 Room Air 03/11/17 06:07 36.6 79 22 145/94 99 Room Air Intake and Output 03/09/17 03/10/17 03/11/17 23:59 23:59 23:59 Intake Total 1850 ml Output Total 1800 ml Balance 50 ml Weight (Kilograms): 95.450 Height (Feet): 5 Height (Inches): 0.00 Test 03/11/17 06:20 03/11/17 08:01 03/11/17 14:07 03/11/17 15:04 Osmolality 311 (275-300) Thyroid Stimulating Hormone (TSH) 9.750uIU/mL (0.450-4.500) Hold Mcdonough Top Tube Received (Received) Urine Color Dark yellow (YELLOW) Urine Appearance Hazy (CLEAR,HAZY) Urine pH 5.0 (5.0-8.0) Urine Specific [place] 1.016 (1.003-1.035) Urine Protein 100mg/dL (NEG,TRACE) Urine Glucose (UA) Negativemg/dL (NEGATIVE) Urine Ketones Negativemg/dL (NEGATIVE) Urine Occult Blood Large (NEGATIVE) Urine Nitrite Negative (NEGATIVE) Urine Bilirubin Negative (NEGATIVE) Urine Urobilinogen Normalmg/dL (NORMAL) Urine Leukocyte Esterase Negative (NEGATIVE) Urine RBC 11-50/hpf (0-2) Urine WBC 0-5/hpf (0-5) Urine Epithelial Cells Occasional/hpf (NONE-MOD) Urine Crystals Oxalic acid crystals (NONE Urine Bacteria Few/hpf (NONE-FEW) Urine Hyaline Casts Occasional/lpf (NONE) Urine Granular Casts None seen (NONE SEEN) Urine Waxy Casts None seen (NONE SEEN) Urine Red Blood Cell Casts Rare (NONE SEEN) Urine White Blood Cell Casts None seen (NONE SEEN) Urine Mucus None seen (None Seen) Urine Trichomonas None seen (NONE SEEN) Urine Yeast None (NONE SEEN) Urinalysis Comment None Urine Culture Reflexed Not indicated Free Thyroxine 1.30ng/dL (0.82-1.77) Prothrombin Time 11.3sec (8.1-12.5) Prothromb Time International Ratio 1.05ratio Ammonia 149ug/dL (18-53) Test 03/11/17 17:50 03/11/17 19:20 03/11/17 22:28 03/12/17 02:05 Lactic Acid Level 5.9mmol/L (0.4-2.0) Troponin T 0.193ug/L (0.0-0.011) White Blood Count 19.1th/mm3 (3.8-10.1) Red Blood Count 2.46mil/mm3 (3.90-5.20) Hemoglobin 7.3g/dL (12.0-15.6) Hematocrit 21.0% (35.0-46.0) Mean Corpuscular Volume 85.4fL (81-100) Mean Corpuscular Hemoglobin 29.7pg (27.0-35.0) Mean Corpuscular Hemoglobin Concent 34.8% (32.0-37.0) Red Cell Distribution Width 13.5% (12.3-15.4) Platelet Count 59bil/L (150-400) Neutrophils (%) (Auto) 78% (40-74) Lymphocytes (%) (Auto) 3% (14-46) Monocytes (%) (Auto) 6% (4-12) Eosinophils (%) (Auto) 0% (0-5) Basophils (%) (Auto) 0% (0-3) Band Neutrophils % 13% (1-5) Hematology Comments Left shift 2+ Sodium Level 136mEq/L (134-144) Potassium Level 4.5mEq/L (3.5-5.2) Chloride Level 100mEq/L (97-108) Carbon Dioxide Level 13mmol/L (18-29) Blood Urea Nitrogen 73mg/dL (8-27) Creatinine 4.84mg/dL (0.57-1.00) Estimat Glomerular Filtration Rate 13mL/min (>59) Glucose Level 263mg/dL (60-99) Calcium Level 8.1mg/dL (8.5-10.1) Phosphorus Level 7.2mg/dL (2.5-4.9) Magnesium Level 2.1mg/dL (1.6-2.6) Total Bilirubin 1.7mg/dL (0.0-1.2) Aspartate Amino Transf (AST/SGOT) 39U/L (0-50) Alanine Aminotransferase (ALT/SGPT) 26U/L (0-32) Alkaline Phosphatase 180U/L (25-165) Total Protein 4.8g/dL (6.4-8.4) Albumin 2.3g/dL (3.4-5.0) Lipase 139U/L (13-60) Procalcitonin 13.83ng/mL (0.00-0.08) Eugenia Herbert Mar 12, 2017 05:11
[2017-03-12 05:18] LABS: D-Dimer 5.38 mg/L FEU (<0.50)
--- NOTE | 2017-03-12 05:29 | NUR ---
Vent, Sedation, Criticals Vs as noted. HD cath placed by Dr. Pederson in laborer [place]. Tolerated well. Continues ventilated with sats 100%. Vent settings adjusted per Dr Haider. Propofol gtt adjusted to RASS -2 and to keep SBP 100-110. Fentanyl gtt 75mcg/h. Pt arouses to open eyes to stim but does not follow commands or interact. Critical microbiology results taken by Dr Haider. Maya cath in place with total 75ml brown andressa uop through the night. Incontinent of stool x2 tonight. H/h results reported. Pt type and crossed.
[2017-03-12] MEDS ORDERED: 0.9% Sodium Chloride 250 ML IV PRN ×2 (05:30→13:15)
--- NOTE | 2017-03-12 06:23 | NUR ---
D/c ativan gtt Ativan gtt ordered and received from pharmacy. Never started and returned to director pharmacy services. Propofol gtt continues.
--- NOTE | 2017-03-12 07:43 | DRSVH ---
PROCEDURE: CT BRAIN WITHOUT CONTRAST ([id number]) INDICATIONS: altered mental status TECHNIQUE: Noncontrast 4.5 mm thick angled axial sections acquired from the foramen magnum to the vertex, with c oronal reformats. COMPARISON: [facility], CT, CT CHEST ABD PELVIS WO CON, 03/12/2017, 0:58. [facility], CT, BRAIN W/O CONTRAST, 02/02/2011, 19:32. FINDINGS: Image quality: Excellent. CSF spaces: Basal cisterns are patent. No extra-axial fluid collections. The ventricles are symmet nigel in size and shape. Brain: No intracranial bleeds or masses. There is mild cerebral volume loss for age, with resultant ventricular and sulcal prominence. There are mild periventricular and deep white matter chronic sma ll vessel ischemic changes. There is intracranial internal carotid artery atherosclerosis. Skull and face: Calvarium and visualized facial bones appear intact, without suspicious lesions. Sinuses: Visualized sinuses and mastoids are clear. There is an orotracheal tube. IMPRESSION: 1. No acute intracranial abnormalities. 2. Cerebral volume loss and chronic microvascular ischemic changes. No significant discrepancy with the night monitor radiology preliminary report. Dictated by: Frida Vega M.D. on 03/12/2017 at 7:39 Approved by: Frida Vega M.D. on 03/12/2017 at 7:41
[2017-03-12] MEDS ORDERED: Albumin 25% 25 GM in IV Premix 1 EACH IV ONE (07:50)
[2017-03-12] MEDS: Lactulose 20 Gm/30 mL 30 mL Syrup TUBE SCH ×2 (08:02→16:46)
--- NOTE | 2017-03-12 08:19 | DRSVH ---
PROCEDURE: X-RAY CHEST ONE VIEW, PORTABLE ([id number]) INDICATIONS: ET positioning TECHNIQUE: One view of the chest was acquired. COMPARISON: 03/11/2017 FINDINGS: Surgical changes and devices: Right IJ dialysis catheter with tip over the mid SVC. Endotracheal tube with tip well above the silvano. Nasogastric tube with tip looped in the stomach. Surgical clips righ t upper quadrant. Lungs and pleura: No pleural effusions or pneumothorax. Bilateral vascular congestion with mild pulm onary edema. Mediastinum: Mediastinal contours appear normal. Heart size is larger, possible pericardial effusio n.. Bones and chest wall: No suspicious bony lesions. Overlying soft tissues appear unremarkable. IMPRESSION: 1. Pulmonary vascular congestion may reflect fluid overload but etiology is indeterminate. 2. Increased heart size could reflect pericardial effusion. 3. Support tubes in position. Dictated by: Petros Wiley M.D. on 03/12/2017 at 8:15 Approved by: Petros Wiley M.D. on 03/12/2017 at 8:17
[2017-03-12] MEDS ORDERED: Vancomycin Dose per Pharmacist XX SCH (08:30)
[2017-03-12] MEDS ORDERED: Chlorhexidine 0.12% 15 mL Oral Solution MT SCH (08:30)
[2017-03-12] MEDS ORDERED: Famotidine Inj 20 MG in IV Premix 1 EACH IV SCH (08:30)
[2017-03-12] MEDS: Chlorhexidine 0.12% 15 mL Oral Solution MT SCH ×4 (08:31→19:45)
[2017-03-12] MEDS ORDERED: 0.9% Sodium Chloride 1,000 ML IV ONE (08:50)
--- NOTE | 2017-03-12 09:07 | DRSVH ---
PROCEDURE: CT CHEST, ABDOMEN AND PELVIS WITHOUT CONTRAST ([id number]) INDICATIONS: bacteremia without a source TECHNIQUE: After the administration of oral contrast, 5 mm thick sections acquired from the lung apices to the s ymphysis pubis. 5 mm thick coronal and sagittal reformats acquired, with additional 7 mm coronal MIP reformats through the lungs. For radiation dose reduction, the following was used: automated expos ure control, adjustment of mA and/or kV according to patient size. COMPARISON: [facility], CT, CT ABD PELVIS W CON, 10/23/2015, 23:40. [facility], CT, CT ABD PELVIS WO CON, 11/10/2016, 3:54. [facility], CR, XR CHEST 1VW (PORTABLE), 03/12/2017, 5:15. FINDINGS: Image quality: Excellent. CHEST: Endotracheal tube and nasogastric tube are noted. Lungs and pleura: Bibasilar infiltrates and consolidations consistent with pneumonia. There is trace left pleural effusion and small right effusion. No pneumothorax. Central and peripheral airways are patent are normal in caliber. Mediastinum: Heart size is normal. There is pericardial effusion. No mediastinal adenopathy by CT s ize criteria. Thoracic aorta and central pulmonary arteries are normal in size. Esophagus is normal in caliber. No hiatal hernia. Chest wall: No axillary or supraclavicular adenopathy by size criteria. Thyroid gland is normal. ABDOMEN: Solid organs: Liver demonstrates nodular contour suggesting cirrhosis. Liver is normal in size. Spl een is enlarged measuring 16.8 cm in length. Gallbladder is surgically absent. Pancreas is normal in contours. No adrenal nodules. Both kidneys are normal in size, without hydronephrosis or nephrolit hiasis. Peritoneum and bowel: Small and large bowel loops are normal in caliber and wall thickness. There i s a small amount of free fluid. No free air. Nodes and vessels: No retroperitoneal or mesenteric adenopathy by size criteria. Aorta and inferior vena cava are normal in size. Large venous collaterals are noted in upper abdomen consistent with p ortal hypertension. Miscellaneous: No ventral hernias. Body wall edema. PELVIS: Genitourinary: Bladder is contracted with a Maya catheter. Miscellaneous: No inguinal hernias or adenopathy. Bones: No suspicious bony lesions. No vertebral body compression fractures. IMPRESSION: 1. Bilateral lower lobe infiltrates and consolidations consistent with pneumonia. 2. Cirrhotic liver. 3. Splenomegaly and large venous collaterals in upper abdomen consistent with portal hypertension. 4. A small amount of ascites. No significant discrepancy with the overnight cashier radiology preliminary report. Dictated by: Frida Vega M.D. on 03/12/2017 at 8:54 Approved by: Frida Vega M.D. on 03/12/2017 at 9:05
[2017-03-12] MEDS: Norepineph 8,000 mCg/250 mL NS 8,000 MCG in IV Premix 1 EACH IV SCH (09:22)
--- NOTE | 2017-03-12 09:24 | NUR ---
Hypotension/Dialysis Hypotensive this am, MAPs 50s; 250cc NS bolus given, slight improvement. Receiving albumin now. Dialysis started at 0900, pt MAP 40s-50s. 1L NS bolus infusing, MAPs remain 40s-50s. ICU team aware, ordered to start Norepi. MAP currently 57, titrating NE. Addendum: 03/12/17 at 1240 by GABBY LAWTON RN GI Incont large liquid brown stool. FMS placed.
[2017-03-12] MEDS ORDERED: Sodium Chloride LOK Flush 10 mL Syringe IVFLUSH PRN ×3 (09:30→17:30)
--- NOTE | 2017-03-12 09:50 | NUR ---
NUTRITION ASSESSMENT: ASSESS:62 YO female admitted to CCU with hepatic encephalopathy, non alcoholic steatohepatitis, severe sepsis and acute renal failure following her discontinuation of lactulose for 3 - 5 days prior to admission. She required intubation and initiation of dialysis. This morning, her blood pressure dropped, she became hypotensive, requiring Norepi to be initiated. Code status: full. PMHx:Hepatitis C of unknown etiology, cirrhosis of the liver with ascites due to Hepatitis C, thrombocytopenia secondary to splenic sequestration, portal HTN with leg edema and ascites, hypervolemic hypotonic hyponatremia secondary to cirrhosis, type II diabetes ID, GERD, end-stage liver disease with anasarca, depression, cholecystectomy. DIET:NPO. LABS: Reviewed. CO2 14, BUN 76, Cr 5.13, Glu 324, A1c 5.9, Lactic Acid 6.4, Ca 7.9, Total Bili 1.4, ALT 164, Lactate Dehydrogenase 384, PAB 11, Procalcitonin 13.83. MEDICATIONS: Reviewed. Lactulose, albumin, norepi, fentanyl. Propofol rate currently 9 mL/hr, providing 238 lipid kcal. NUTRITION FOCUSED PHYSICAL ASSESSMENT: GI symptoms / stool: Incontinent of stool.Jorge: 10. Skin Integrity: Wound consult initiated related to Jorge 10; evaluation pending. ANTHROPOMETRICS: Current Wt: 95.45 kgBMI: 41.0 kg/m2. IBW: 45.5 kgAdj. BW (55.26 kg. ESTIMATED NEEDS (CLASS III OBESITY, RENAL DIALYSIS, ES LIVER DISEASE): Calories: 1364 - 1591 kcal (30 - 35 kcal / kg IBW) Protein: 82 - 91 g protein 1.8 - 2.0 g / kg IBW) Fluid: Managed by nephrology. NUTRITION DIAGNOSIS: 1)Increased nutrient needs related to increased demand for nutrients, as evidenced by requirement for renal dialysis, end-stage liver disease. 2)Inadequate oral intake related to inability to consume sufficient energy, as evidenced by NPO / vent status. INTERVENTION: 1) Once patient is more stable, recommend initiate enteral feeding; unsigned orders in chart for provider authorization. Recommendation: initiate Nepro at 10 mL/hr x 12 hr. Once tolerance established, recommend advance 5 ml every 4 hr. to goal rate 40 mL/hr x 22 hr. Flush dose 40 mL H2O every 4 hr; additional free water per nephrology. Enteral feeding at goal will provide 1584 kcal (1822 with propofol), 71 g protein, sufficient to meet > 100% kcal / 84% protein needs. 2) Once it is determined that patient will continue to require vs. discontinue dialysis, enteral formula recommendation and additional protein recommendation will be reassessed. MONITOR/EVALUATE: NPO status, enteral feeding start / advance / tolerance, labs, GI/nutrition status. Follow up per high nutrition risk guidelines.
[2017-03-12] MEDS: Penicillin G K Inj 3,000,000 UNITS in IV Premix 1 EACH IV SCH ×2 (11:24→16:30)
--- NOTE | 2017-03-12 11:48 | PROG NOTE ---
[address] [address] PROGRESS NOTE PATIENT: NILESH SPRINGER : 1955 MR#: [id number] ADMIT: 03/11/2017 JOB ID: [id number] DATE: 03/12/2017 PULMONARY CRITICAL CARE PROGRESS NOTE: The patient is a 62-year-old woman with nonalcoholic steatohepatitis associated cirrhosis admitted with acute on chronic renal failure requiring emergent hemodialysis, and respiratory failure. INTERVAL HISTORY: Blood cultures 11/24 from yesterday started growing group B streptococcus within 12 hours. She had difficulty with placement of right femoral dialysis line yesterday and eventually needed to be intubated for having the line placed in her right IJ instead in the director labor standards. She also has had a kinked guidewire stuck in her right femoral vein which had to be removed in the director labor standards. All of this was uneventfully done in the director labor standards. REVIEW OF SYSTEMS: Could not be obtained. PHYSICAL EXAMINATION: Vital signs reviewed. T-max 36.9, pulse 78, respirations 22, BP 114/41, sats 99% on 30% FiO2. General: Obese woman lying in bed. She is agitated and trying to move. Chest clear to auscultation. Tries to open her eyes and follow commands. LABORATORIES: Reviewed. WBC is 15.6, hemoglobin down to 6.7 from 9.5 yesterday, platelets 16. Chemistry reviewed. Potassium is down to 5, bicarb 14, BUN 76, creatinine 5.1, lactate 6.4. Chest x-ray reviewed. Shows low lung volumes with basilar atelectasis and pulmonary edema. Arterial blood gas this morning shows pH 7.398, pCO2 of 25, pO2 of 136, bicarb of 15.4. ASSESSMENT: 1. Acute hypoxic respiratory failure-intubated March 11. 2. Acute on chronic kidney injury. Initiated on hemodialysis March 11, 2017. 3. Severe hyperkalemia-improved. 4. Severe metabolic acidosis-improving. 5. Streptococcus agalactiae bacteremia. 6. Severe anemia-likely due to acute blood loss. Unclear source. 7. Nonalcoholic steatohepatitis (MOSHER) associated cirrhosis. 8. Septic shock. RECOMMENDATIONS: This 62-year-old woman with MOSHER cirrhosis is presenting with acute renal failure in the setting of Strep agalactiae bacteremia. She also has acute anemia that appears to be due to blood loss but we see no active visible signs of bleeding. With regards to the bacteremia, Infectious Disease is consulting. She is on ceftriaxone and they are planning on switching to penicillin, which is supposedly a better agent for this specific organism. Repeat blood cultures are pending and transthoracic echo is pending to rule out endocarditis. With regards to source, that is not yet clear,m although potential sources include skin, pneumonia, etc. With regards to the anemia, again we see no obvious signs of ongoing bleeding. NG output does not look bloody. I wonder about the possibility of a hematoma in the femoral area as a result of multiple line attempts that were performed yesterday. She is getting a transfusion right now so we will recheck the hemoglobin and follow it. If it continues to drop, then I would get imaging such as an ultrasound of the right groin area to further evaluate and also consider an NG lavage. We are giving her PPI b.i.d. but no octreotide since there is no evidence of GI bleed. With regards to the kidney issues, she is getting dialysis again today and had dialysis last night. The hyperkalemia has improved, but the metabolic acidosis persists, so I am hoping this will improve as well with this next round of dialysis. She is currently hypotensive and is getting a second liter of normal saline fluid bolus. We added norepinephrine but my goal is to wean this off with IV fluids. We had an arterial line placed in order to get a better measure of her blood pressure and this shows a better blood pressure than we had initially thought. I am hoping we can avoid placement of a another IJ line or a PICC line in this situation. She is on appropriate DVT prophylaxis. With regard to GI, she is on PPI b.i.d. in the event that this is GI bleed. She is getting lactulose for hepatic encephalopathy. She is a FULL CODE. TIME: Critical care time is 60 minutes.
--- NOTE | 2017-03-12 12:02 | PCM.PNNEPH ---
Subjective Date of Service Mar 12, 2017 Subjective s/p right IJ HD cath placement last night. First HD initiated last night. s/p intubation Hypotensive episode this morning, NS bolus, IV alb and levophed started. Currently on 2nd session of HD Blood culture (+) Strep Agalactiae. Exam Vital Signs Vital Sign - Last Date Time Temp Pulse Resp B/P Pulse Ox O2 Delivery O2 Flow Rate FiO2 03/12/17 11:27 36.8 78 25 138/47 99 Mechanical Ventilator 30 Intake and Output 03/11/17 03/11/17 03/12/17 Cumulative From/Thru 15:00 23:00 07:00 03/11/17 06:07 - 03/12/17 06:00 Intake Total 850 ml 2479 ml 4329 ml Output Total 200 ml 1600 ml 75 ml 1875 ml Balance -200 ml -750 ml 2404 ml 2454 ml Intake IV Total 850 ml 2479 ml 4329 ml Output Urine Total 200 ml 100 ml 75 ml 375 ml Ultrafiltrate 1500 ml 1500 ml # Bowel Movements 2 2 Exam General appearance: Sedated and intubated. HEENT: Atraumatic. Moist mucous membranes. PERRLA. Mild pallor and icteric sclerae. No JVD. No lymphadenopathy. No thyroid enlargement. Heart: Regular rhythm. Normal S1, S2. Soft systolic murmur noted. Lungs: Clear to auscultation bilaterally. No wheezing. No rhonchi. No accessory muscle use. Abdomen: Soft, obese. Active bowel sounds. No fluid shift or fluid thrill. Extremities: Trace edema on the lower extremities. Lab and Diagnostics Result Diagram: 03/12/17 04303/12/17 0430 Cardiac Echo Impressions Echocardiogram Interpretation Summary Borderline concentric left ventricular hypertrophy with ejection fraction 60- 65%. Grade I diastolic dysfunction. No valvular abnormality. Comparison is made with the echocardiogram of 11/11/2016, there has been no significant change. Additional Diagnostics AGB DateTimeAnalyzed 14:32:05 -_ pH ____7.378 - 7.350 7.450 pCO2 ___19.1__ -mmHg 35.0 45.0 pO2 ___94.6__ -mmHg 70.0 100 HCO3- ___11.3__ -mmol/L 22.0 26.0 Plan Impression 1. Acute kidney injury on chronic kidney disease secondary to ATN in the setting of sepsis. Requiring HD. First HD on 03/11. HD: 3 hr, UF as tolerated, DFR 600, BFR 300 2K, 35HCO3, revaclear, right IJ. 2. Hyperkalemia, resolved. 3. Anion gap metabolic acidosis. improving. 4. Lactic acidosis. 5. Strep agalactiae bacteremia. 6. AMS secondary to hepatic encephalopathy and sepsis. 7. 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 PLAN: 1. Continue daily HD. 2. No objection to place PICC line if indicated at this time. Teresita Kamara MD Mar 12, 2017 12:02
--- NOTE | 2017-03-12 12:06 | CONS ---
[address] [address] CONSULTATION REPORT PATIENT: NILESH SPRINGER : 1955 MR#: [id number] ADMIT: 03/11/2017 JOB ID: [id number] DATE OF SERVICE: 03/12/2017 INFECTIOUS DISEASE CONSULTATION: I would like to thank Dr. Haider for this timely consult. I also thank Dr. Spence, who also consulted us regarding this case. REASON FOR CONSULT: High-grade group B strep bacteremia in a patient with underlying diabetes and chronic liver disease. HISTORY OF PRESENT ILLNESS: The patient is an unfortunate 62-year-old woman with multiple overlapping severe medical problems. Her most severe problem is MOSHER with cirrhosis and episodes of hepatic encephalopathy. She is also known to be diabetic and in the past has had episodes of renal insufficiency. Her relevant history this time begins about three days ago when for unclear reasons she stopped taking her baseline lactulose, which is intended as a prophylactic agent for hepatic encephalopathy. She subsequently developed changes in mental status, nausea, vomiting, coffee-grounds emesis, and some dark-colored sputum. There was no report of fevers or chills but she was brought to the emergency department because of these mental status changes where she decompensated and eventually required intubation last night during her ED visit. At about that same time fevers were detected and blood cultures were most appropriately obtained. The patient was found to be in renal failure with extreme elevation of the potassium and after great difficulty a dialysis catheter was inserted to initiate emergency dialysis. I was called around midnight regarding antibiotic choice in this patient as she was clearly becoming septic with hypotension and obviously very diminished urine output. The initial antibiotic choices included vancomycin and ceftriaxone. Subsequently this morning we have report of positive blood cultures for streptococcal organisms which by latex are group B strep. ID consultation is requested regarding appropriate antibiotic management. This morning the patient is lightly sedated and restrained in the ICU. She is currently quite agitated, but when asked in Samoan she does occasionally shake or nod her head appropriately, but it is clear that the primary thing she has experienced at this point is terror actually over being intubated and restrained in the ICU. No additional useful history can be obtained from her but in talking to the family there is no report of fevers, chills significant difficulty breathing, or any other focal complaint prior to admission other than the mental status changes and cough, with nausea and vomiting. PAST MEDICAL HISTORY: 1. Cirrhosis of the liver with ascites. Whether this is due to MOSHER or hepatitis C is unclear. Some notes in the chart indicate hepatitis C, but in reviewing our serologies during her past multiple admissions it does not appear hep C has been checked, so were uncertain as to the nature of the cirrhosis. a. Portal hypertension with peripheral edema and ascites. b. Hepatic encephalopathy. c. Chronic thrombocytopenia. 2. Insulin-dependent diabetes mellitus. 3. Hypertension. 4. GERD. 5. Depression. 6. Status post cholecystectomy. 7. Hypothyroidism. 8. Chronic anemia. SOCIAL HISTORY: It is reported the patient neither smokes nor drinks. She lives with family in the local area. FAMILY HISTORY: Cannot be assessed from this intubated and somewhat sedated but agitated woman. REVIEW OF SYSTEMS: Cannot be done given the fact she is intubated, agitated, and sedated at the same time. PHYSICAL EXAMINATION: Reveals a woman who is a thrashing about. Because of her labile and rather low blood pressure there are concerns about giving her too much sedation which has led to this agitated and intubated situation. The patient's eyes are open. She does respond to voice. When called in Samoan she diverts her gaze to the questioner and sometimes will nod appropriately but mainly is just struggling. The head is without trauma. The neck is completely supple. There is no obvious cervical or supraclavicular adenopathy. No jugular venous distention is noted. The patient's lungs are essentially clear anteriorly and posteriorly, as when she sits up one can listen to her fairly well. Cardiac tones regular rate and rhythm without notable murmur. The abdomen is obese, but soft and without obvious splenomegaly nor ascites. Within the inguinal folds there is chronic inflammation in a pattern that one would expect for intertriginous yeast infection in a somewhat obese patient. She does have a Maya catheter with very minimal urine output. The extremities are notable for 2+ edema which extends basically all the way up to the waist in a pattern consistent with anasarca. There is no skin rash or skin breakdown anywhere to suggest a primary source of her infection. She does not have evidence of synovitis. Neurologic exam cannot be done but we do observe her moving all four extremities as she struggles to try and sit up or move in bed against the restraints. A sensory exam cannot be done. LABORATORIES: Include white count 8000 yesterday in the ER, which rapidly jumped to 19,000 this morning. There is a significant left shift, 13% bands. Platelet count is 60,000, which is near her baseline looking back over the past couple of years. Creatinine is 5.13. Note that when she was here in October her creatinine was around 2. When she was here in January, it was about 1.5, so today's level of 5.13 is a significant decrement. BUN 76. LFTs basically normal. Total bilirubin 1.4 but ALT, AST, and alk phos are normal. Lactate was 2.4 when she hit the ER yesterday morning, by yesterday evening it was 6, and now 6.4. Procalcitonin is 14. Yesterday evening in the ER it was 4 and now 14. Bicarbonate is currently 13, and was as low yesterday as 11. Urinalysis without white cells. A hep C antibody is pending. Oddly, despite multiple admissions and questions about hep C sero status, there is not a hep C noted in the computer, at least within the [employer] computer system. Micro studies include the positive blood cultures for group B strep. Those were done at 6 a.m. yesterday morning and were positive within less than 12 hours, which is extraordinary. MRSA screen was done and negative. Sputum shows moderate polys without predominant organism. In looking at the prior cultures, the patient has not had any significant bacteremias documented during the past two years at this institution. IMAGING: Includes a chest x-ray, which we reviewed with the pulmonary attending during ICU rounds this morning. It shows some increased pulmonary vascular congestion consistent with fluid overload and cardiomegaly, but no infiltrate. IMPRESSION: This is an unfortunate woman with underlying end-stage liver disease and some mild to moderate chronic renal insufficiency and underlying diabetes. She presents with mental status changes and the development of high fevers and flagrant septic shock with renal failure. She has group B strep in her blood and it is notable these blood cultures turned positive in just about 11 hours in all four bottles, which suggests an overwhelming group B streptococcal bacteremia. Group B strep bacteremia is unexplained in about 1/3 of cases, but when a focal site is identified it typically is one of several possibilities including meningitis, endocarditis, pneumonia, skin or soft tissue infections, and urinary tract infection. So far we see no evidence here for meningitis in this woman with a supple neck. Likewise she has a normal urinalysis, no evidence of skin and soft tissue infection, and a normal chest x-ray. Her cardiac exam does not disclose any new murmurs, and in fact no murmurs at all, so this may board turner to be a primary group B strep bacteremia of unknown source. The optimal drug for group B strep remains penicillin in high doses. Ceftriaxone or vancomycin could be used if there was a reason not to give penicillin. There is some in vitro evidence that aminoglycosides when added to beta lactams produce superior killing of group B strep, which is not as susceptible the penicillin as is its cousin group A strep. That said, I am reluctant to add gentamicin in this patient who is already teetering on the edge of hepatorenal syndrome. At this point she is not receiving pressors even though her blood pressure is at 120/40 or so. RECOMMENDATIONS: 1. Will go ahead stop the ceftriaxone. 2. Will initiate therapy with penicillin at a renally adjusted dose of about two million q.6 h. hours and will be discussing this dosing with the ICU pharmacist. 3. This patient will require obviously extremely close followup. 4. A transthoracic echo should be obtained. If there are concerns about any findings on the transthoracic echo, then I would proceed with a transesophageal echo. 5. Additional blood cultures should be obtained on a daily basis until they are consistently negative in this patient who is quite immunosuppressed. 6. Note that I will be off work for the next nine days and on vacation. I can be reached about this or any other patient by telephone or text message if need be, and I will be returning to work on March 22. Thank you very much.
--- NOTE | 2017-03-12 12:21 | PCM.PNMED ---
Subjective Date of Service Mar 12, 2017 Subjective Patient is a 62-year-old female with a medical history significant for liver cirrhosis and diabetes type II recently stopped taking her lactulose reportedly complains of nausea and vomiting in addition to coughing 2 days prior admitted for altered mental status a Chiari, hyperkalemia requiring emergent dialysis. Due to increased agitation, and the need for line placement, patient was intubated overnight. Patient remains in ICU for vent management, severe sepsis, acute kidney injury needing dialysis. Overnight, patient satting well at 100%, with an FiO2 of 21%, PEEP of 5, respiratory rate 22, tidal volume 400. Hemodynamically however, patient MAP's 57-63, not on pressor. Patient urine output remains scant. Patient did had 1.5 L ultrafiltrate removed yesterday however. Lactic acid is 6.4. Electrolytes normalize, sodium 134, potassium 5, chloride 99, bicarbonate 14, BP 176, creatinine 5.13, glucose 324. Liver enzymes bilirubin 1.4 with AST a LT 40/25, alkaline phosphatase 164, lipase 139 down from 190 yesterday.Pt afebrile overnight. However WBC 15.6 with blood culture 4/4 positive for strep Agalactaie. Night ICU team place patient on in addition to ceftriaxone and vancomycin. Hemoglobin 6.7 this a.m. thus patient was given 1 unit of PRBC. Fibrinogen 197, no schistocytes found. Platelets abnormally low at 60. This is chronic however. Exam Vital Signs Vital Sign - Last Date Time Temp Pulse Resp B/P Pulse Ox O2 Delivery O2 Flow Rate FiO2 03/12/17 11:27 36.8 78 25 138/47 99 Mechanical Ventilator 30 Intake and Output 03/11/17 03/11/17 03/12/17 Cumulative From/Thru 15:00 23:00 07:00 03/11/17 06:07 - 03/12/17 06:00 Intake Total 850 ml 2479 ml 4329 ml Output Total 200 ml 1600 ml 75 ml 1875 ml Balance -200 ml -750 ml 2404 ml 2454 ml Intake IV Total 850 ml 2479 ml 4329 ml Output Urine Total 200 ml 100 ml 75 ml 375 ml Ultrafiltrate 1500 ml 1500 ml # Bowel Movements 2 2 Exam General: Some agitation otherwise sedated and intubated HEENT: Normocephalic, atraumatic. PERRLA, sclera icteric, no neck stiffness noted Neck: No JVD, No bruits. No lymphadenopathy or thyromegaly. Right IJ HD catheter in place, nonerythematous Cardiovascular: Tachycardic regular rhythm, no appreciable murmur rub or gallop Pulmonary: b/l air sound is breath, no crackles or wheezes Abdomen: +Bowel sound, Soft, nontender, nondistended. No signs of ascites, fecal management system in place : Maya catheter in place Extremities: No clubbing or cyanosis, no lymphedema, moderate 2+ pitting edema, Skin: Normal temperature, turgor, and texture; no rash. No visualized skin ulcer. 2 peripheral IV access, left arterial line in place Neurological: Mentally altered, moaning, moving equally on all 4 extremities Lab and Diagnostics Result Diagram: 03/12/1742903/12/17429 Cardiac Echo Impressions Echocardiogram Interpretation Summary Borderline concentric left ventricular hypertrophy with ejection fraction 60- 65%. Grade I diastolic dysfunction. No valvular abnormality. Comparison is made with the echocardiogram of 11/11/2016, there has been no significant change. Additional Diagnostics AGB DateTimeAnalyzed 14:32:05 -_ pH ____7.378 - 7.350 7.450 pCO2 ___19.1__ -mmHg 35.0 45.0 pO2 ___94.6__ -mmHg 70.0 100 HCO3- ___11.3__ -mmol/L 22.0 26.0 Assessment & Plan Patient is a 62-year-old female with medical history significant for diabetes type II, CKD, liver cirrhosis with portal hypertension on 3 diuretics, had significant nausea, vomiting, and altered mentation admitted to the ICU for acute kidney injury with emergent dialysis given hyperkalemia, now also found severe sepsis. Problem list # Severe sepsis # Pneumonia # Encephalopathy # Acute kidney injury # Ventilatory dependent respiratory failure Patient is a medically complex. Probable inciting event likely noncompliant to medication, lactulose, thus causing nausea vomiting, and confusion exacerbated by the use of multiple diuretics, causing acute kidney injury, hyperkalemia. Uncertain about group B strep bacteremia, most likely source pneumonia given the CT scan demonstrating bibasilar infiltrate. Daughters did report the patient was coughing 2 days prior to admission. Also unknown, cause for significant normocytic anemia, initial hemoglobin 9.5 dropped to 6.7 on day 2. She could have been a GI bleed, possible bleeding into her right thigh due to multiple attempts and placing hemodialysis catheter. Current plans are to dialyze her all the while treating the severe sepsis, pneumonia. Severe sepsis - Positive for serous criteria, source likely pneumonia, and multiple end organ damage - Maintain map above 65 with fluid boluses. - Okay to place PICC line for pressor support should patient need it per discussion with nephrology - Sitter norepinephrine should map below 65 Encephalopathy - Multifactorial causes: electrolyte abnormality, hyperuricemia, liver cirrhosis, sepsis - CT head unremarkable - Treat the underlying causes Pneumonia - 4/4 positive group B strep, CT lung suggestive of bibasilar pneumonia - Antibiotic: Penicillin G per infectious disease Dr. Arnett, Rocephin and vancomycin discontinued Ventilatory dependent respiratory failure - Patient initially intubated for emergent line placement, patient with significant agitation - Current ventilation setting FiO2 21%, PEEP 5, RR 22, tidal volume 400. - Titrate respiratory rate to compensate for metabolic acidosis - Sedated on propofol and fentanyl - Daily ABG and chest x-ray Acute on chronic kidney injury - Secondary to overdiuresis on top of dehydration from vomiting and poor by mouth intake - Emergent dialysis per nephrology Teresita Barker - Monitor urine output, limit nephrotoxic medication Liver cirrhosis - With secondary splenic sequestration, thrombocytopenia, portal hypertension , esophageal varices - holding off home Lasix, spironolactone, and torsemide till renal function improves - Lactulose 20 mg every 8 hours, fecal management system in place Normocytic anemia - Receive 1 unit PRBC - Cause uncertain at this time, perhaps a GI bleed, right femoral bleeding - Fibrinogen 197, no schistocytes seen on smear review. - NG suctioning unremarkable for any blood, stool guaiacs test ordered - Repeat H&H. - Consider ultrasound of right lower leg DVT prophylaxis: heparin subq GI prophylaxis: not indicated at this time Code Status: FULL CODE per family Total critical care time 1hr Resuscitation Status: CPR: Attempt Resuscitation Attending Statement I have seen and examined this patient with the resident physician. Vital signs , labs, imaging have been reviewed. I agree with the assessment and plan above. Please refer to my separately dictated progress note for any modifications to above. Araseli Spence M.D. Pulmonary and Critical Care medicine Pager [phone] Wesley Reagan DO Mar 12, 2017 12:21 Araseli Spence MD Mar 12, 2017 16:16
[2017-03-12] MEDS ORDERED: Glucose 40% Oral Gel 15 Gm Tube PO PRN (12:25)
--- NOTE | 2017-03-12 12:45 | NUR ---
Dialysis note: 3 1/2 hours tx Zero net UF Right IJ catheter, dsg dry and intact Pls see DTR for VS details, hypotensive at start of tx, started on Norepi gtt but stopped it the last hr of tx Albumin IV and NS bolus given by primary RN beginning of tx Qb 300 w/ cath limbs reversed A-V V-A due to poor cath function Heparin prime given On vent @ 30% FiO2 w/ sat 90-100% Tolerated the rest of the tx, cont'd on sedation Catheter flushed, heparin dwelled and secured Stable condition at end of tx Report given to Margarita YORK
--- NOTE | 2017-03-12 14:24 | NUR ---
Inpatient Wound Nurse Patient seen by CWON RN for PU Protocol Prevention. Three <1 cm crusted areas noted inside lower lip, appear as dried blood, no new oozing or bleeding and these do not correspond with ET tube placement. No open areas found in skin folds. Clear adhesive dressing in R groin CDI. L heel mildly boggy, blanchable, pink, and warm, WNL of adjacent skin temp and color. Heels repositioned and floated on pillow. Patient tolerates lateral roll poorly, and so, was not rolled for posterior visual observation. Patient's primary RN reported no open areas observed at previous turning.
--- NOTE | 2017-03-12 15:25 | NUR ---
H&H Hgb/Hct 6.8/18.6, 1unit PRBCs administered per Dr. Spence's orders. Continue to trend H&H. Addendum: 03/12/17 at 1826 by GABBY LAWTON RN Post transfusion Hgb/hct 7.7/22. BPs soft, MAP <65. Per Dr. Spence, 1L NS bolus administered, and 1 unit PRBCs to be administered still. AJ doss PIV no longer working, IV therapist d/c'd it. Sedation running in hand IV. PICC RN in to place PICC line, once sufficient IV access established blood transfusion can be started, as well as other routine IV medications. MAPs remain high 50s to low 60s, pt may require restarting norepinephrine.
--- NOTE | 2017-03-12 16:09 | NUR ---
Social Work: Multidisciplinary Rounds Pt discussed in am rounds; pt currently in CCU. Pt has screened in for assessment however LEAD JAVA DEVELOPER ARCHITECT cannot see pt and family today due to high census. LEAD JAVA DEVELOPER ARCHITECT will continue to follow and meet with pt to complete assessment prior to d/c. SUZANNE Dexter
--- NOTE | 2017-03-12 17:01 | DRSVH ---
[facility] [address] [place] [address] Echocardiogram Report Name: NILESH SPRINGER Study Date: 03/12/2017 Height: 60 in Hospital Exam Location: [facility] Weight: 21 0 lb Gender: Female BSA: 1.9 m2 : 1955 Age: 62 yrs BP: 111/44 mmHg Reason For Study: Endocarditis Ordering Physician: HOSPITALIST [facility] Performed By: Carlota Tillman Referring Physician: [facility] Interpretation Summary Left ventricular wall thickness is borderline increased. The ejection fraction is estimated to be 60-65%. Left ventricular wall motion is normal. The right ventricle is normal in size and function. Right ventricular systolic pressure is estimated to be 30 mmHg plus the clinically estimated CVP which cannot be estimated on this exam. The left atrial size is normal. Right atrial size is normal. There is no significant valvular heart disease. No overt evidence for endocarditis. The aortic root is normal size. No significant changes since prior study on 02/16/2017. Procedure: A two-dimensional transthoracic echocardiogram with color flow and Doppler was performed. The study quality was technically adequate. Comparison is made with the echocardiogram of 02/16/2017 and 11/11/2016. The patient was in normal sinus rhythm during the exam. Left Ventricle: Left ventricular wall thickness is borderline increased. The left ventricle is normal in size. The ejection fraction is estimated to be 60-65%. Left ventricular wall motion is normal. Spectral Doppler of the mitral inflow yields an E/A ratio that is between 0.8 and 1.5. The E/E' ratio is mildly increased, suggesting possible increased filling pressures. Right Ventricle: The right ventricle is normal in size and function. Atria: The left atrial size is normal. Right atrial size is normal. Mitral Valve: The mitral valve is normal in structure and function. There is no vegetation seen on the mitral valve. There is trace mitral regurgitation. Aortic Valve: The aortic valve is not well visualized. The aortic valve is grossly normal. There is no aortic valvular vegetation. No aortic regurgitation is present. Tricuspid Valve: The tricuspid valve is normal in structure and function. There is no tricuspid valve vegetation. There is mild tricuspid regurgitation. Right ventricular systolic pressure is estimated to be 30 mmHg plus the clinically estimated CVP which cannot be estimated on this exam. Pulmonic Valve: The pulmonic valve is not well seen, but is grossly normal. There is no vegetation on the pulmonic valve. There is a trace or physiologic amount of pulmonic regurgitation. There is no significant valvular heart disease. Great Vessels: The aortic root is normal size. The IVC has a measurement of 27 mm. Inspiratory collapse cannot be assessed because of mechanical ventilation, thus CVP cannot be estimated.. Pericardium/ Pleura There is no pericardial effusion. MMode/2D Measurements & Calculations LVIDd: 5.5 cm RA long axis Ao root diam LVIDs: 3.7 cm LA A4 area: 22.2 cm FS: 32.0 % LA length (vol): 5.9 cm RA area Aortic Jxn IVSd: 0.91 cm IVC diam: 2.7 cm : 2.7 cm LVPWd: 1.0 cm : 17.3 cm RA vol: 50.0 ml RA : 26.2 mm2 LV bonds. diameter/BSA LV sys. diameter/BSA RVD1 (basal) (cm/m^2): 2.9 (cm/m^2): 2.0 Doppler Measurements & Calculations Ao V2 max MV E max joe MV E/A: 0.92 TR max joe : 185.3 cm/sec : 112.8 cm/sec Med Peak E' Joe : 274.8 cm/sec Ao max PG MV A max joe TR max PG : 13.7 mmHg : 123.1 cm/sec E/E' med: 17.1 : 30.2 mmHg Ao mean PG MV P1/2t: 80.6 msec Lat Peak E' Joe PA V2 max : 92.6 cm/sec LVOT Max Joe E/E' lat: 13.9 PA mean PG : 120.3 cm/sec E/e' average: 15.5 sev ratio PA Accel Time : 0.14 sec MV V2 mean MV P1/2t max joe Ao V2 mean LV V1 max PG : 78.1 cm/sec : 132.9 cm/sec MV mean PG MVA(P1/2t): 2.7 cm2 Ao V2 VTI: 50.8 cm LV V1 VTI : 31.9 cm MV V2 VTI: 37.3 cm MV dec time : 0.27 sec PA V2 mean : 61.3 cm/sec Reading Physician:PM
[2017-03-12] MEDS: Insulin LISPRO 300 Unit/3 mL Inj SUBQ SCH ×2 (17:30→21:16)
--- NOTE | 2017-03-12 17:30 | PCM.PROC ---
Procedure Note Date of Service: Mar 12, 2017 Pre Procedure Diagnosis: Severe sepsis Post Procedure Diagnosis: Severe sepsis Procedure: Left arterial line under ultrasound guidance Provider and Tank Builder Helper: IV therapy Indication for Procedure: Hemodynamic monitoring Procedural Analgesia: 1% lidocaine Procedure Details: A time-out was completed verifying correct patient, procedure, site, positioning. Allens test was performed to ensure adequate perfusion. The patients <LEFT> wrist was prepped and draped in sterile fashion. 1% Lidocaine was used to anesthetize the area. Ultrasound was used to identify the radial artery. A 18G Arrow arterial line was introduced into the <LEFT RADIAL ARTERY> . The catheter was threaded over the guide wire and the needle was removed with appropriate pulsatile blood return. The catheter was then sutured in place to the skin and a sterile dressing applied. Perfusion to the extremity distal to the point of catheter insertion was checked and found to be adequate. < Attending Dr. Spence> was present for the entire procedure. Estimated blood loss: Scant, Less than 1 mL Post Procedure Plan: Keep dressing dry Daily monitor and dressing changes as needed for infection Wesley Reagan DO Mar 12, 2017 17:30
--- NOTE | 2017-03-12 17:56 | ABG ---
DateTimeAnalyzed 17:48:43 -_ pH ____7.531 - 7.350 7.450 pCO2 ___30.3__ -mmHg 35.0 45.0 pO2 ___64.2__ -mmHg 69.0 116 HCO3- ___25.4__ -mmol/L 22.0 26.0 ABE ____2.3__ -mmol/L tHb ____8.0__ -g/dL O2Hb ___93.6__ -% COHb ____2.0__ -% 1.5 MetHb ____0.1__ -% sO2 ___95.6__ -% FIO2 ___21.0__ -% Drawn By BTl - Date/Time Notified____ 17:56:00 -_ Notified By btl - Notified Whom ___Dr. McCart - K+ ____3.7__ -mmol/L tO2 ___10.6__ -Vol% Enio test N/A -
--- NOTE | 2017-03-12 18:50 | DRSVH ---
PROCEDURE: X-RAY PICC LINE PLACEMENT BY NURSE ([id number]) INDICATIONS: medicine access COMPARISON: None. FINDINGS: PICC was placed by the intravenous therapy team from the right side. Fluoroscopic spot fi lm demonstrates tip of PICC in the atriocaval junction. IMPRESSION: Tip of PICC lies within the atriocaval junction. Dictated by: Faith Bojorquez MD, PhD on 03/12/2017 at 18:47 Approved by: Faith Bojorquez MD, PhD on 03/12/2017 at 18:48
--- NOTE | 2017-03-12 19:34 | PCM.PNMED ---
Subjective Date of Service Mar 12, 2017 Subjective Overnight Events: Right femoral dialysis line placement was attempted, which resulted in a kinked guidewire stuck in right femoral vein, which was successfully removed in the track repair laborer. She did require intubation overnight. Hospital day 2, patient is intubated and sedated. She has equal breath sounds bilaterally and having good stool output. Urine output has been minimal. Exam Vital Signs Vital Sign - Last Date Time Temp Pulse Resp B/P Pulse Ox O2 Delivery O2 Flow Rate FiO2 03/12/17 06:12 36.8 77 22 113/41 03/12/17 04:00 100 Mechanical Ventilator 30 Intake and Output 03/11/17 03/11/17 03/12/17 Cumulative From/Thru 15:00 23:00 07:00 03/11/17 06:07 - 03/12/17 06:00 Intake Total 850 ml 2479 ml 4329 ml Output Total 200 ml 1600 ml 75 ml 1875 ml Balance -200 ml -750 ml 2404 ml 2454 ml Intake IV Total 850 ml 2479 ml 4329 ml Output Urine Total 200 ml 100 ml 75 ml 375 ml Ultrafiltrate 1500 ml 1500 ml # Bowel Movements 2 2 Exam General: Patient intubated and sedated. HEENT: Normocephalic, atraumatic. Pupils equal, round, and reactive to light and accommodation. Anicteric sclerae. Cardiovascular: Tachycardic rate and rhythm with no murmurs, rubs, or gallops appreciated Pulmonary: Intubated, equal air sounds bilaterally. Abdomen: Bowel tones present. Soft, Obese, scattered bruising, nondistended. Extremities: No clubbing, cyanosis, Moderate pitting edema to the knees, no lymphadenopathy appreciated. Skin: Normal temperature, turgor, scattered bruising, fragile with new skin tares and texture; no rash, ulcers, or subcutaneous nodules appreciated. Neurological: Unable to assess as patient intubated and sedated Psychiatric: Unable to assess as patient intubated and sedated Lab and Diagnostics Item Value Date Time Lactic Acid Level 1.8 mmol/L 03/12/17 1755 Lactic Acid Level 6.4 mmol/L *H 03/12/17 0430 Lactate Dehydrogenase 384 U/L H 03/12/17 0430 Prealbumin 11 mg/dL L 03/12/17 0430 Procalcitonin 4.04 ng/mL H 03/11/17 1920 Procalcitonin 13.83 ng/mL H 03/12/17 0205 Lipase 139 U/L H 03/12/17 0205 Result Diagram: 03/12/17 0430 03/12/17 0430 Microbiology Item Value Date Time Adenovirus DNA (PCR) - Final Complete 03/12/17 1234 Nasopharangeal Not Detected Blood Culture Received 03/12/17 0848 Blood Aerobic And Anaerobic Bottle Pending Sputum Quality Screen - Final Resulted 03/11/17 2010 Trachea MRSA (PCR) - Final Complete 03/11/17 1600 Nose Blood Culture - Preliminary Resulted 03/11/17 0703 Blood Aerobic And Anaerobic Bottle Strep Agalactiae - (Group B) Streptococcus pneumoniae Ag Screen - Final Complete 03/11/17 0620 Urine,Random Blood Culture - Preliminary Resulted 03/11/17 0620 Blood Aerobic And Anaerobic Bottle Strep Agalactiae - (Group B) X-Rays, CTs and MRIs PROCEDURE: X-RAY PICC LINE PLACEMENT BY NURSE ([id number]) IMPRESSION: Tip of PICC lies within the atriocaval junction. PROCEDURE: X-RAY CHEST ONE VIEW, PORTABLE ([id number]) IMPRESSION: 1. Pulmonary vascular congestion may reflect fluid overload but etiology is indeterminate. 2. Increased heart size could reflect pericardial effusion. 3. Support tubes in position. PROCEDURE: CT CHEST, ABDOMEN AND PELVIS WITHOUT CONTRAST ([id number]) IMPRESSION: 1. Bilateral lower lobe infiltrates and consolidations consistent with pneumonia. 2. Cirrhotic liver. 3. Splenomegaly and large venous collaterals in upper abdomen consistent with portal hypertension. 4. A small amount of ascites. PROCEDURE: X-RAY CHEST ONE VIEW, PORTABLE ([id number]) IMPRESSION: Interval intubation. Left hemidiaphragm elevation with left basilar atelectasis. Cardiac Echo Impressions 03/12/17 Left ventricular wall thickness is borderline increased. The ejection fraction is estimated to be 60-65%. Left ventricular wall motion is normal. The right ventricle is normal in size and function. Right ventricular systolic pressure is estimated to be 30 mmHg plus the clinically estimated CVP which cannot be estimated on this exam. The left atrial size is normal. Right atrial size is normal. There is no significant valvular heart disease. No overt evidence for endocarditis. The aortic root is normal size. No significant changes since prior study on 02/16/2017. Echocardiogram Interpretation Summary Borderline concentric left ventricular hypertrophy with ejection fraction 60- 65%. Grade I diastolic dysfunction. No valvular abnormality. Comparison is made with the echocardiogram of 11/11/2016, there has been no significant change. Additional Diagnostics AGB 14:32:05 pH_7.378 pCO2_19.1 pO2_94.6 HCO3_11.3 Assessment & Plan Ms. Shania To is a 62 year old lady here due to hepatic encephalopathy, non alcoholic steatoHepatits, Acute renal failure, and Insulin dependent Diabetes mellitus requiring emergent hemo-dialysis and lactulose treatments. Ventilator Dependent Respiratory Failure, not present on admission, active Patient required intubation for urgent line placement for dialysis. - Management per ICU team - Sedated on propofol and fentanyl - Daily ABG and chest x-ray Severe Sepsis, not present on admission. Active. - Likely secondary to bacteremia - Temp 38.2, HR 107, RR 36. Cre 5.4. - Blood cultures x4: Strep agalactiae - 2 L bolus of fluids given - PICC in place in case of need for pressors. Bacteremia, present on admission, active 11/24 positive blood cultures for Strep agalactiae - ID consulted and will see patient - Switched from Ceftriaxone to Penicillin 03/12/17 per ID recommendation Hepatic Encephalopathy, Present on admission. Active. - Secondary to endstage liver cirrhosis/MOSHER. - History of Grade 2 esophageal varicies (August), Portal htn gastropathy. - Hep B pending. - Ammonia 307 initially. - Lactulose at 200 mg rectally Q4H with rectal balloon 30-[address] mins. [address] tube in place. Acute on Chronic Normocytic Anemia, Present on admission. Active. - Hgb 9.5 on admission down to 6.8. Source of blood loss currently unknown. - LDH is elevated, Haptoglobin pending. - 3 units PRBC given Acute Renal Failure, Present on admission. Improved - Initially thought to be 2nd to pre-renal azotemia. - Creatinine 5.4, baseline 1.3. BUN 102. - Monitor I/O, Maya in place. - IV fluids given NS @ 250 ml/hr. - Nephrology consulted, recommendations appreciated. - Hemodialysis done 03/11/17 Acute Hyperkalemia, Present on admission. Resolved - Secondary to renal failure. EKG reviewed, with no T wave abnormalities. NSR. - Hemodilaysis done 03/11/17 Mixed Anion Gap Metabolic Acidosis and alkalosis and Respiratory Alkalosis. Present on admission. Active. - AG - 22, Delta AG 10, Delta Bicarb 13. calculated PaCO2 24. - Fluids given, HD planned. No Bicarb ggt available, Na-Acetate contraindicated , Bicarb IV push 50 mEq given. - ABG as above. Repeat today - Repeat lactic acid Grade 1 Diastolic Heart failure, chronic. Present on admission. Active. - With pulmonary hypertension. - Echo 03/12/17 and February 16 as above. Insulin Using Diabetes Mellitus, Present on admission. Active. - Continue home Lantus 50 U daily. - Heart healthy/Carb consistent diet. - High dose correctional scale. - Glu 244. - HA1c pending. Chronic Thrombocytopenia. Present on admission. Active. - Likely Splenic sequestration. - Monitor. Demand Ischemia, with elevated Troponins. Chronic, present on admission. Active. - Elevated tropes - 0.166, with Q6 H trend. No EKG changes. - Previous tropoinins elevated. - Stress test 02/16/17 showed no ischemia. - Repeat Echocardiogram, results as above Morbid Obesity. - BMI 41.1 Hypertension, chronic. - Continue home meds when appropriate. Subclinical Hypothyroidism,acute on chronic. - Continue home Synthroid. Will give IV tomorrow if cant tolerate PO. Acetaminophen for mild pain when necessary. Bowel regimen Senna and MiraLAX scheduled and PRN. Zofran when necessary for nausea and vomiting. SubQ heparin held for now. SCDs in place. Disposition: Likely here for > 2 midnights. Dependent upon mental status and renal function. Will be discharged to likely home when medically stable. Resuscitation Status: CPR: Attempt Resuscitation Attending Statement The patient was seen and examined together with Dr. Wright on 03/12/2017 and I agree with the history, exam and plan as outlined in the note above. . Speedy Wright DO Mar 12, 2017 06:53 Paramjit Parks MD Mar 13, 2017 17:38
[2017-03-12] MEDS: Pantoprazole 4 mg/mL 10 mL Inj IVPUSH SCH (19:45)
[2017-03-12] MEDS ORDERED: cefTRIAXone 2,000 mg/D5W 50 mL IV Minibag Plus IV SCH ×2 (21:00)
--- NOTE | 2017-03-12 21:30 | ABG ---
DateTimeAnalyzed 21:21:00 -_ pH ____7.442 - 7.350 7.450 pCO2 ___35.2__ -mmHg 35.0 45.0 pO2 ___62.6__ -mmHg 69.0 116 HCO3- ___23.6__ -mmol/L 22.0 26.0 ABE ____0.2__ -mmol/L -2.0 2.0 tHb ____8.8__ -g/dL O2Hb ___90.3__ -% COHb ____2.2__ -% MetHb ____0.4__ -% sO2 ___92.7__ -% FIO2 ___21.0__ -% PEEP ____5.0__ -cmH2O Set_RR ___16.0__ -b/min Vt __400.0__ -L Drawn By TLA - Date/Time Notified____ 21:28:00 -_ Spontaneous_RR ___16.0__ -b/min Oxygen Device 1 VENTILATOR - Notified By TLA - Notified Whom Efren Hurleckson-RN -__ B 761 -mmHg tO2 ___11.2__ -Vol% Enio test N/A -
[2017-03-13] VITALS (14 sets, daily range): BP systolic 108–150; BP diastolic 42–86; PULSE 62–88; RESP 16; O2SAT 96–99
[2017-03-13] MEDS: Penicillin G K Inj 3,000,000 UNITS in IV Premix 1 EACH IV SCH ×3 (00:36→16:48)
[2017-03-13] MEDS: Chlorhexidine 0.12% 15 mL Oral Solution MT SCH ×6 (00:36→19:50)
[2017-03-13] MEDS: Lactulose 20 Gm/30 mL 30 mL Syrup TUBE SCH ×3 (03:00→16:48)
[2017-03-13 04:48] LABS: BASOPHILS % (AUTO) 0.2 % (0-3); EOSINOPHILS % (AUTO) 1.3 % (0-5); MONOCYTES % (AUTO) 8.6 % (4-12); Mean Corpuscular Hemoglobin 29.7 pg (27.0-35.0); NEUTROPHILS % (AUTO) 79.4 % (40-74); Platelet Count 47 bil/L (150-400)
[2017-03-13] MEDS: 0.9% Sodium Chloride 1,000 ML IV SCH ×2 (05:00→13:14)
[2017-03-13 05:18] LABS: Magnesium 1.6 mg/dL (1.6-2.6); Phosphorus 3.9 mg/dL (2.5-4.9)
--- NOTE | 2017-03-13 05:29 | ABG ---
DateTimeAnalyzed 05:22:11 -_ pH ____7.445 - 7.350 7.450 pCO2 ___35.5__ -mmHg 35.0 45.0 pO2 ___86.5__ -mmHg 69.0 116 HCO3- ___24.4__ -mmol/L 22.0 26.0 ABE ____0.3__ -mmol/L tHb ____9.5__ -g/dL O2Hb ___96.5__ -% COHb ____1.9__ -% 1.5 MetHb ____0.1__ -% sO2 ___98.4__ -% FIO2 ___21.0__ -% PEEP ____5.0__ -cmH2O Set_RR 16 -b/min Vt __400.0__ -L Drawn By MD - Date/Time Notified____ 05:29:00 -_ Spontaneous_RR 16 -b/min Oxygen Device 1 VENTILATOR - Notified By MD - Notified Whom RN J.HERLICKSON - K+ ____3.8__ -mmol/L tO2 ___12.9__ -Vol% Enio test N/A -
--- NOTE | 2017-03-13 06:26 | NUR ---
Vent, sedation, hypotension Vs as noted. Continues ventilated with sats high 90s on 40% fio2. Suctioning moderate pink brown secretions per ETT. Propofol 15mcg/kg/min and Fentany 125mcg/h effective for sedation. Transfused one unit RBCs. Tolerated well. MAP dropped to 50s after RBCs. Levophed gtt started at 0.04mcg/kg/min with improvement.
[2017-03-13] MEDS: Propofol Inj 1,000,000 MCG in IV Premix 1 EACH IV SCH ×2 (07:45→18:03)
[2017-03-13] MEDS: Heparin 5,000 Unit/mL Inj SUBQ SCH ×2 (07:50→19:50)
[2017-03-13] MEDS: Insulin LISPRO 300 Unit/3 mL Inj SUBQ SCH ×4 (08:00→22:00)
[2017-03-13] MEDS: Pantoprazole 4 mg/mL 10 mL Inj IVPUSH SCH ×2 (08:25→17:27)
[2017-03-13] MEDS: Norepineph 8,000 mCg/250 mL NS 8,000 MCG in IV Premix 1 EACH IV SCH (08:25)
--- NOTE | 2017-03-13 09:22 | ABG ---
DateTimeAnalyzed 09:13:54 -_ pH ____7.420 - 7.350 7.450 pCO2 ___39.0__ -mmHg 35.0 45.0 pO2 ___75.6__ -mmHg 69.0 116 HCO3- ___25.3__ -mmol/L 22.0 26.0 ABE ____0.8__ -mmol/L tHb ____9.1__ -g/dL O2Hb ___94.4__ -% COHb ____2.0__ -% 1.5 MetHb ____0.0__ -% sO2 ___96.4__ -% FIO2 ___30.0__ -% PEEP ___10.0__ -cmH2O Set_RR 16 -b/min Vt __400.0__ -L Drawn By as - Date/Time Notified____ 09:21:00 -_ Spontaneous_RR 16 -b/min Oxygen Device 1 VENTILATOR - Notified By ams - Notified Whom dr parimi - K+ ____3.6__ -mmol/L tO2 ___12.2__ -Vol% Enio test N/A -
--- NOTE | 2017-03-13 11:32 | PROG NOTE ---
[address] [address] PROGRESS NOTE PATIENT: NILESH SPRINGER : 1955 MR#: [id number] ADMIT: 03/11/2017 JOB ID: [id number] DATE: 03/13/2017 PULMONARY CRITICAL CARE PROGRESS NOTE: The patient is a 62-year-old woman with non alcoholic steatohepatitis associated cirrhosis presenting with strep agalactiae bacteremia and acute renal failure with septic shock. INTERVAL HISTORY: She had a PICC line placed yesterday evening and has been getting norepinephrine through that. This has been tapered down and is almost completely off currently. She was just started on dialysis again this morning. She continues to make almost no urine-80 cc yesterday. REVIEW OF SYSTEMS: Could not be obtained. PHYSICAL EXAMINATION: Vital signs reviewed. T-max 37, pulse 84, respirations 16, BP 112/47, sats 99% on 30% FiO2 and 10 cm of PEEP. General: Intubated, sedated, tries to open her eyes to voice but is not following commands for me. Chest: Clear to auscultation. Abdomen nontender. LABORATORIES: Reviewed. Hemoglobin stable at 9.3 today up from 6.8 yesterday. Platelets 47. Chemistry also reviewed. Creatinine 3.4, BUN 40 and electrolytes that are normal. Procalcitonin this morning is up to 27 from 13 yesterday. Cultures: Initial blood cultures from day one growing strep agalactiae in all bottles. Subsequent blood cultures, sputum cultures are negative to date at 24 hours. Chest x-ray done this morning reviewed. Shows low lung volumes and increased patchy bilateral infiltrates compared to yesterday which could be pulmonary edema. ASSESSMENT AND RECOMMENDATIONS: 1. Septic shock. 2. Strep agalactiae bacteremia. 3. Acute renal failure. Initiated on hemodialysis March 11. 4. MOSHER associated cirrhosis. 5. Severe anemia-source unclear, resolved. No obvious evidence of blood loss. This 62-year-old woman with known non alcoholic steatohepatitis associated alcoholic cirrhosis and chronic kidney disease is presenting with strep agalactiae bacteremia with septic shock, acute renal failure. We had problems with severe anemia yesterday that was unexplained and I wonder if this is related to the line placement attempts the day prior. So far, there is no evidence of ongoing bleeding either from GI source and no evidence of a hematoma on the CT of the chest, abdomen and pelvis that was done the other day. I also see no evidence of DIC or hemolysis based on labs done yesterday. At this point, plan is to continue antibiotics per Dr. Arnett-she is currently on penicillin alone. She was on low-dose norepinephrine which has been weaned off this morning. She is getting dialysis this morning and nephrology is following. She is getting PPI b.i.d. as well as subcu heparin. She is a FULL CODE. Her daughter was updated at the bedside with an foam charger. CRITICAL CARE TIME: 45 minutes.
--- NOTE | 2017-03-13 12:42 | DRSVH ---
PROCEDURE: X-RAY CHEST ONE VIEW, PORTABLE ([id number]) INDICATIONS: pneumonia, ET positioning TECHNIQUE: One view of the chest was acquired. COMPARISON: [facility], CR, XR CHEST 1VW (PORTABLE), 03/12/2017, 5:15. FINDINGS: Surgical changes and devices: Endotracheal tube, right IJ and central line and nasogastric tube are i n expected position. Lungs and pleura: Bilateral patchy airspace opacities are increased. No pleural effusions or pneumot horax. Lungs are clear. Mediastinum: Mediastinal contours appear normal. Heart size is normal. Bones and chest wall: No suspicious bony lesions. Overlying soft tissues appear unremarkable. IMPRESSION: Appropriate position of endotracheal tube. Persistent bilateral pneumonia. Dictated by: Frida Vega M.D. on 03/13/2017 at 12:39 Approved by: Frida Vega M.D. on 03/13/2017 at 12:40
--- NOTE | 2017-03-13 12:45 | NUR ---
Dialysis note: 3 1/2 hours tx 1000 ml net UF Right IJ catheter, dsg dry and intact Pls see DTR for VS details, on Levophed gtt but stopped after the first hr of tx Qb 300 w/ cath limbs reversed A-V V-A due to poor cath function Heparin prime given On vent @ 30% FiO2 w/ sat in the 90's Tolerated tx, cont'd on IV sedation Catheter flushed, heparin dwelled and secured Stable condition at end of tx Report given to Cynthia YORK
[2017-03-13 13:28] LABS: OSMOLALITY, URINE 321 mOs/kH2O (250-1200)
--- NOTE | 2017-03-13 13:55 | PCM.PNNEPH ---
Subjective Date of Service Mar 13, 2017 Subjective off vasopressors. remains anuric, UOP < 100 ml/ 24 hr. had 3rd session of HD this morning without complications. UF 1 L. Exam Vital Signs Vital Sign - Last Date Time Temp Pulse Resp B/P Pulse Ox O2 Delivery O2 Flow Rate FiO2 03/13/17 11:55 62 150/86 99 30 03/13/17 08:28 37.0 16 Mechanical Ventilator Intake and Output 03/12/17 03/12/17 03/13/17 Cumulative From/Thru 15:00 23:00 07:00 03/11/17 06:07 - 03/13/17 06:00 Intake Total 721 ml 3895 ml 1447 ml 94360 ml Output Total 0 ml 85 ml 50 ml 2010 ml Balance 721 ml 3810 ml 1397 ml 8382 ml Intake IV Total 110 ml 3545 ml 1447 ml 9431 ml Packed Cells 611 ml 350 ml 961 ml Output Urine Total 10 ml 0 ml 385 ml Stool Total 75 ml 0 ml 75 ml Gastric Drainage Total 50 ml 50 ml Ultrafiltrate 0 ml 1500 ml # Bowel Movements 2 Exam General appearance: Sedated and intubated. HEENT: Atraumatic. Moist mucous membranes. PERRLA. Mild pallor and icteric sclerae. No JVD. Heart: Regular rhythm. Normal S1, S2. Soft systolic murmur noted. Lungs: Clear to auscultation bilaterally. No wheezing. No rhonchi. No accessory muscle use. Abdomen: Soft, obese. decreased BS. No fluid shift or fluid thrill. Extremities: 2+ edema on the lower extremities. Lab and Diagnostics Result Diagram: 03/13/17 0430 03/13/17 0430 Microbiology Item Value Date Time Adenovirus DNA (PCR) - Final Complete 03/12/17 1234 Nasopharangeal Not Detected Blood Culture Received 03/12/17 0848 Blood Aerobic And Anaerobic Bottle Pending Sputum Quality Screen - Final Resulted 03/11/17 2010 Trachea MRSA (PCR) - Final Complete 03/11/17 1600 Nose Blood Culture - Preliminary Resulted 03/11/17 0703 Blood Aerobic And Anaerobic Bottle Strep Agalactiae - (Group B) Streptococcus pneumoniae Ag Screen - Final Complete 03/11/17 0620 Urine,Random Blood Culture - Preliminary Resulted 03/11/17 0620 Blood Aerobic And Anaerobic Bottle Strep Agalactiae - (Group B) X-Rays, CTs and MRIs PROCEDURE: X-RAY PICC LINE PLACEMENT BY NURSE ([id number]) IMPRESSION: Tip of PICC lies within the atriocaval junction. PROCEDURE: X-RAY CHEST ONE VIEW, PORTABLE ([id number]) IMPRESSION: 1. Pulmonary vascular congestion may reflect fluid overload but etiology is indeterminate. 2. Increased heart size could reflect pericardial effusion. 3. Support tubes in position. PROCEDURE: CT CHEST, ABDOMEN AND PELVIS WITHOUT CONTRAST ([id number]) IMPRESSION: 1. Bilateral lower lobe infiltrates and consolidations consistent with pneumonia. 2. Cirrhotic liver. 3. Splenomegaly and large venous collaterals in upper abdomen consistent with portal hypertension. 4. A small amount of ascites. PROCEDURE: X-RAY CHEST ONE VIEW, PORTABLE ([id number]) IMPRESSION: Interval intubation. Left hemidiaphragm elevation with left basilar atelectasis. Cardiac Echo Impressions 03/12/17 Left ventricular wall thickness is borderline increased. The ejection fraction is estimated to be 60-65%. Left ventricular wall motion is normal. The right ventricle is normal in size and function. Right ventricular systolic pressure is estimated to be 30 mmHg plus the clinically estimated CVP which cannot be estimated on this exam. The left atrial size is normal. Right atrial size is normal. There is no significant valvular heart disease. No overt evidence for endocarditis. The aortic root is normal size. No significant changes since prior study on 02/16/2017. Echocardiogram Interpretation Summary Borderline concentric left ventricular hypertrophy with ejection fraction 60- 65%. Grade I diastolic dysfunction. No valvular abnormality. Comparison is made with the echocardiogram of 11/11/2016, there has been no significant change. Additional Diagnostics AGB 14:32:05 pH_7.378 pCO2_19.1 pO2_94.6 HCO3_11.3 Plan Impression 1. Acute kidney injury on chronic kidney disease secondary to ATN in the setting of sepsis. Requiring HD. First HD on 03/11. 2. Hyperkalemia. Resolved. 3. Anion gap metabolic acidosis. Resolved. 4. Strep agalactiae bacteremia. 5. AMS secondary to hepatic encephalopathy and sepsis. 6. 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 PLAN: Next HD in am for 3.5 hr, UF 2-3L as tolerated. Continue IV abx per ID. Teresita Kamara MD Mar 13, 2017 13:55
[2017-03-13] MEDS: fentaNYL 2,500 mCg/250 mL 2,500 MCG in IV Premix 1 EACH IV SCH (17:28)
--- NOTE | 2017-03-13 18:26 | NUR ---
BP Dialysis today from 0975-0307. BP maintained stable on low dose levophed. Put on hold at 1000 and has tolerated well since. Vent 30% . 20cc urine output. Urine sent. Receiving Lactulose, 50ml dark brown/black stool. Opened eyes to family today and shook her head yes.
--- NOTE | 2017-03-13 22:01 | PCM.PNMED ---
Subjective Date of Service Mar 13, 2017 Subjective Overnight Events: One unit PRBC transfused overnight, MAP of 50, levophed drip started Hospital day 3, patient is intubated and sedated. She is moving to touch. Exam Vital Signs Vital Sign - Last Date Time Temp Pulse Resp B/P Pulse Ox O2 Delivery O2 Flow Rate FiO2 03/13/17 05:17 89 122/54 97 40 03/13/17 04:00 37.0 16 03/13/17 00:00 Mechanical Ventilator Intake and Output 03/12/17 03/12/17 03/13/17 Cumulative From/Thru 15:00 23:00 07:00 03/11/17 06:07 - 03/13/17 06:00 Intake Total 721 ml 3895 ml 1447 ml 44598 ml Output Total 0 ml 85 ml 50 ml 2010 ml Balance 721 ml 3810 ml 1397 ml 8382 ml Intake IV Total 110 ml 3545 ml 1447 ml 9431 ml Packed Cells 611 ml 350 ml 961 ml Output Urine Total 10 ml 0 ml 385 ml Stool Total 75 ml 0 ml 75 ml Gastric Drainage Total 50 ml 50 ml Ultrafiltrate 0 ml 1500 ml # Bowel Movements 2 Exam General: Patient intubated and sedated. HEENT: Normocephalic, atraumatic. Pupils equal, round, and reactive to light and accommodation. Anicteric sclerae. Cardiovascular: Tachycardic rate and rhythm with no murmurs, rubs, or gallops appreciated Pulmonary: Intubated, equal air sounds bilaterally. Abdomen: Bowel tones present. Soft, Obese, scattered bruising, nondistended. Extremities: No clubbing, cyanosis, Moderate pitting edema to the knees, no lymphadenopathy appreciated. Skin: Normal temperature, turgor, scattered bruising, fragile with new skin tares and texture; no rash, ulcers, or subcutaneous nodules appreciated. Neurological: Unable to assess as patient intubated and sedated Psychiatric: Unable to assess as patient intubated and sedated Lab and Diagnostics Item Value Date Time Hemoglobin 9.3 g/dL L 03/13/17 043 Hematocrit 26.6 % L 03/13/17 0430 White Blood Count 11.5 th/mm3 H 03/13/17 0430 Red Blood Count 3.13 mil/mm3 L 03/13/17 0430 White Blood Count 15.6 th/mm3 H 03/12/17 0430 Platelet Count 47 cristiane/L L 03/13/17 0430 Platelet Count 59 cristiane/L L 03/12/17 0205 Platelet Count 60 cristiane/L L 03/12/17 0430 Hepatitis B Surface Antigen Negative 03/11/178 Hepatitis B Core Total Antibody Negative 03/11/178 Hepatitis B Surface Antibody Non reactive 03/11/178 Hepatitis C Antibody <0.1 s/co ratio 03/11/17 2228 Urine Legionella pneumophilia Ag Negative 03/11/17 0620 Haptoglobin < 10 mg/dL L 03/11/178 Result Diagram: 03/13/17 0430 03/13/17 043 Microbiology Item Value Date Time Adenovirus DNA (PCR) - Final Complete 03/12/17 1234 Nasopharangeal Not Detected Blood Culture Received 03/12/17 0848 Blood Aerobic And Anaerobic Bottle Pending Sputum Quality Screen - Final Resulted 03/11/17 2010 Trachea MRSA (PCR) - Final Complete 03/11/17 1600 Nose Blood Culture - Preliminary Resulted 03/11/17 0703 Blood Aerobic And Anaerobic Bottle Strep Agalactiae - (Group B) Streptococcus pneumoniae Ag Screen - Final Complete 03/11/17 0620 Urine,Random Blood Culture - Preliminary Resulted 03/11/17 0620 Blood Aerobic And Anaerobic Bottle Strep Agalactiae - (Group B) X-Rays, CTs and MRIs PROCEDURE: X-RAY PICC LINE PLACEMENT BY NURSE ([id number]) IMPRESSION: Tip of PICC lies within the atriocaval junction. PROCEDURE: X-RAY CHEST ONE VIEW, PORTABLE ([id number]) IMPRESSION: 1. Pulmonary vascular congestion may reflect fluid overload but etiology is indeterminate. 2. Increased heart size could reflect pericardial effusion. 3. Support tubes in position. PROCEDURE: CT CHEST, ABDOMEN AND PELVIS WITHOUT CONTRAST ([id number]) IMPRESSION: 1. Bilateral lower lobe infiltrates and consolidations consistent with pneumonia. 2. Cirrhotic liver. 3. Splenomegaly and large venous collaterals in upper abdomen consistent with portal hypertension. 4. A small amount of ascites. PROCEDURE: X-RAY CHEST ONE VIEW, PORTABLE ([id number]) IMPRESSION: Interval intubation. Left hemidiaphragm elevation with left basilar atelectasis. Cardiac Echo Impressions 03/12/17 Left ventricular wall thickness is borderline increased. The ejection fraction is estimated to be 60-65%. Left ventricular wall motion is normal. The right ventricle is normal in size and function. Right ventricular systolic pressure is estimated to be 30 mmHg plus the clinically estimated CVP which cannot be estimated on this exam. The left atrial size is normal. Right atrial size is normal. There is no significant valvular heart disease. No overt evidence for endocarditis. The aortic root is normal size. No significant changes since prior study on 02/16/2017. Echocardiogram Interpretation Summary Borderline concentric left ventricular hypertrophy with ejection fraction 60- 65%. Grade I diastolic dysfunction. No valvular abnormality. Comparison is made with the echocardiogram of 11/11/2016, there has been no significant change. Additional Diagnostics DateTimeAnalyzed 05:22:11 -_ pH ____7.445 - 7.350 7.450 pCO2 ___35.5__ -mmHg 35.0 45.0 pO2 ___86.5__ -mmHg 69.0 116 HCO3- ___24.4__ -mmol/L 22.0 26.0 FIO2 ___21.0__ -% PEEP ____5.0__ -cmH2O AGB 14:32:05 pH_7.378 pCO2_19.1 pO2_94.6 HCO3_11.3 Assessment & Plan Ms. Shania To is a 62 year old lady here due to hepatic encephalopathy, non alcoholic steatoHepatits, Acute renal failure, and Insulin dependent Diabetes mellitus requiring emergent hemo-dialysis and lactulose treatments. Ventilator Dependent Respiratory Failure, not present on admission, active Patient required intubation for urgent line placement for dialysis. - Management per ICU team - Sedated on propofol and fentanyl - Daily ABG and chest x-ray Severe Sepsis, not present on admission. Improved. Met SIRS criteria with; Tachycardia, tachypnea and Fever. Lactic acid elevated. - Likely secondary to bacteremia - Temp 38.2, HR 107, RR 36. Cr 5.4. - Blood cultures x4: Strep agalactiae - PICC in place in case of need for pressors. Levophed drip as needed. Bacteremia, present on admission, active 11/24 positive blood cultures for Strep agalactiae. - ID consulted and will see patient - Switched from Ceftriaxone to Penicillin 03/12/17 per ID recommendation Hepatic Encephalopathy, Present on admission. Active. - Secondary to endstage liver cirrhosis/MOSHER. - History of Grade 2 esophageal varicies (August), Portal htn gastropathy. - Hep B negative. - Ammonia 307 initially. - Lactulose at 200 mg rectally Q4H with rectal balloon 30-60 mins. FMS tube in place. Acute on Chronic Normocytic Anemia, Present on admission. Active. - Hgb 9.5 went down to 6.8. Required 3 units PRBC with improvement to 9.2. Source of blood loss currently unknown. - LDH is elevated, Haptoglobin decreased. - Continue to monitor Acute Renal Failure, Present on admission. Improved - Initially thought to be 2nd to pre-renal azotemia. - Creatinine 5.4, baseline 1.3. BUN 102. - Monitor I/O, Maya in place. - IV fluids given NS @ 250 ml/hr. - Nephrology consulted, recommendations appreciated. - Hemodialysis done daily since 03/11/17 Acute Hyperkalemia, Present on admission. Resolved - Secondary to renal failure. EKG reviewed, with no T wave abnormalities. NSR. - Hemodilaysis done daily since 03/11/17 Mixed Anion Gap Metabolic Acidosis and alkalosis and Respiratory Alkalosis. Present on admission. Resolved - AG - 22, Delta AG 10, Delta Bicarb 13. calculated PaCO2 24. - ABG as above. Repeat today Grade 1 Diastolic Heart failure, chronic. Present on admission. Active. - With pulmonary hypertension. - Echo 03/12/17 and February 16 as above. Insulin Using Diabetes Mellitus, Present on admission. Active. HgA1C 5.9 - Start home Lantus 50 U daily when extubated and tolerating PO intake - High dose correctional scale. Chronic Thrombocytopenia. Present on admission. Active. - Likely Splenic sequestration. - Monitor. Demand Ischemia, with elevated Troponins. Chronic, present on admission. Active. - Elevated tropes - 0.166, with Q6 H trend. No EKG changes. - Previous tropoinins elevated. - Stress test 02/16/17 showed no ischemia. - Repeat Echocardiogram, results as above Morbid Obesity. - BMI 41.1 Hypertension, chronic. - Continue home meds when appropriate. Subclinical Hypothyroidism,acute on chronic. - Continue home Synthroid. Acetaminophen for mild pain when necessary. Bowel regimen Senna and MiraLAX scheduled and PRN. Zofran when necessary for nausea and vomiting. SubQ heparin held for now. SCDs in place. Disposition: Likely here for > 2 midnights. Dependent upon mental status and renal function. Will be discharged to likely home when medically stable. Resuscitation Status: CPR: Attempt Resuscitation Attending Statement The patient was seen and examined together with Dr. Wright on 03/13/2017 and I agree with the history, exam and plan as outlined in the note above. . Speedy Wright DO Mar 13, 2017 06:53 Paramjit Parks MD Mar 14, 2017 07:55
[2017-03-14] VITALS (10 sets, daily range): BP systolic 109–144; BP diastolic 42–53; PULSE 60–74; RESP 12–16; O2SAT 95–99
[2017-03-14] MEDS: Lactulose 20 Gm/30 mL 30 mL Syrup TUBE SCH ×3 (00:30→16:34)
[2017-03-14] MEDS: Chlorhexidine 0.12% 15 mL Oral Solution MT SCH ×6 (00:44→20:10)
[2017-03-14] MEDS: Penicillin G K Inj 3,000,000 UNITS in IV Premix 1 EACH IV SCH ×3 (00:47→16:40)
[2017-03-14] MEDS: 0.9% Sodium Chloride 1,000 ML IV SCH ×2 (00:54→08:04)
--- NOTE | 2017-03-14 04:46 | ABG ---
DateTimeAnalyzed 04:41:00 -_ pH ____7.418 - 7.350 7.450 pCO2 ___37.4__ -mmHg 35.0 45.0 pO2 ___67.5__ -mmHg 69.0 116 HCO3- ___23.7__ -mmol/L 22.0 26.0 ABE ___-0.1__ -mmol/L -2.0 2.0 tHb ____9.6__ -g/dL O2Hb ___90.8__ -% COHb ____2.2__ -% MetHb ____0.8__ -% sO2 ___93.6__ -% FIO2 ___21.0__ -% PEEP ___10.0__ -cmH2O Set_RR ___16.0__ -b/min Vt __400.0__ -L Drawn By MD - Date/Time Notified____ 04:46:00 -_ Spontaneous_RR ___16.0__ -b/min Oxygen Device 1 VENTILATOR - Notified By MD - Notified Whom RN J.HERLICKSON - B 759 -mmHg tO2 ___12.4__ -Vol% Enio test N/A -
[2017-03-14] MEDS: Propofol Inj 1,000,000 MCG in IV Premix 1 EACH IV SCH (04:54)
[2017-03-14 05:03] LABS: BASOPHILS % (AUTO) 0.1 % (0-3); EOSINOPHILS % (AUTO) 1.8 % (0-5); MONOCYTES % (AUTO) 7.4 % (4-12); Mean Corpuscular Hemoglobin 29.2 pg (27.0-35.0); Mean Corpuscular Volume 86.2 fL (81-100); NEUTROPHILS % (AUTO) 76.8 % (40-74); Platelet Count 46 bil/L (150-400)
--- NOTE | 2017-03-14 05:04 | NUR ---
Vent, Sedation Vs as noted. Continues ventilated with sats high 90s on now 40% fio2. Suctioning small amounts pete colored sputum per ett. Sedation of Propofol 15mcg and Fentanyl 125mcg/h unchanged. Pt arouses easily to nod appropriately to family. Tele sinus rhythm 60s. Afebrile. Maya cath in place with minimal brown cloudy uop. FMS in place with thin yellow/brown stool that occasionally leaks around tube. Left radial Esther in place with normal wave forms. Right PICC in secure. Right IJ HD cath in place and secure.
[2017-03-14 05:28] LABS: Magnesium 1.5 mg/dL (1.6-2.6); Phosphorus 3.4 mg/dL (2.5-4.9)
--- NOTE | 2017-03-14 07:56 | DRSVH ---
PROCEDURE: X-RAY CHEST ONE VIEW, PORTABLE ([id number]) INDICATIONS: pneumonia, ET positioning TECHNIQUE: One view of the chest was acquired. COMPARISON: None. FINDINGS: Surgical changes and devices: Tubes and catheters are in stable and expected positions. Lungs and pleura: No pleural effusions or pneumothorax. Mild patchy bilateral perihilar and basilar opacities present, which is decreased. Mediastinum: Mediastinal contours appear normal. Heart size is normal. Bones and chest wall: No suspicious bony lesions. Overlying soft tissues appear unremarkable. IMPRESSION: Resolving multifocal pneumonia. Dictated by: Idris Reynaga M.D. on 03/14/2017 at 7:54 Approved by: Idris Reynaga M.D. on 03/14/2017 at 7:54
[2017-03-14] MEDS: Insulin LISPRO 300 Unit/3 mL Inj SUBQ SCH ×4 (08:00→20:56)
[2017-03-14] MEDS: Pantoprazole 4 mg/mL 10 mL Inj IVPUSH SCH ×2 (08:03→16:40)
[2017-03-14] MEDS: Norepineph 8,000 mCg/250 mL NS 8,000 MCG in IV Premix 1 EACH IV SCH (08:04)
[2017-03-14] MEDS: Heparin 5,000 Unit/mL Inj SUBQ SCH (08:04)
--- NOTE | 2017-03-14 11:41 | PROG NOTE ---
[address] [address] PROGRESS NOTE PATIENT: NILESH SPRINGER : 1955 MR#: [id number] ADMIT: 03/11/2017 JOB ID: [id number] DATE: 03/14/2017 PULMONARY CRITICAL CARE PROGRESS NOTE: IDENTIFICATION: The patient is a 62-year-old woman with MOSHER cirrhosis admitted with strep agalactiae bacteremia and acute renal failure with septic shock. INTERVAL HISTORY: She has been off pressors since yesterday morning. She is getting dialysis right now, tolerating it well hemodynamically. She is on minimal ventilator settings. REVIEW OF SYSTEMS: Could not be obtained since the patient is intubated and sedated. PHYSICAL EXAMINATION: Vital signs reviewed. Afebrile. Pulse 63, respirations 16, BP 109/42, sats 98% on 30% FiO2. General intubated, sedated. Does open her eyes and move how occasionally. Chest clear to auscultation. She does have diffuse anasarca. LABORATORIES: Reviewed. Notable for stable hemoglobin at 9.1, platelets are still low at 46. Chemistry reviewed. Electrolytes are within normal limits. Arterial blood gas from this morning shows pH of 7.41, pCO2 of 37, pO2 of 67, and bicarb of 23. ASSESSMENT AND RECOMMENDATIONS: 1. Septic shock-improved, off pressors. 2. Strep agalactiae bacteremia. 3. Acute on chronic renal failure-on dialysis on hemodialysis since March 12. 4. Severe anemia-likely blood loss, resolved. 5. Nonalcoholic steatohepatitis associated cirrhosis. 6. Acute hypoxic respiratory failure on mechanical ventilation since March 12. A 62-year-old woman with nonalcoholic steatohepatitis cirrhosis presenting with septic shock, Strep agalactiae bacteremia, and acute renal failure. She is off pressors since yesterday morning and has been getting daily dialysis since the evening of March 12. With regards to respiratory status, she is "quite stable on minimal ventilator settings." We put her on a pressure support trial today, and she is doing extremely well. I would like to continue this for another hour and then get a blood gas. If all of this is good, I think we should go ahead and extubate her. From a renal standpoint, she remains anuric, requiring dialysis. From an ID standpoint, she is getting penicillin for Strep agalactiae which cleared after the initial blood cultures. Procalcitonin today is down to 23 from 27, so I think we should continue to follow this. We do not have an obvious clear source, but it could be skin, lungs et cetera. ID has been following. Her hemoglobin has been stable even though we do not have a clear source identified for the bleeding. This happened the morning after her multiple attempts at line placement so I wonder if there was some blood loss associated with this. There is no evidence of GI bleed and she had an abdominal CT that showed no bleeding intra-abdominally either. I hope to extubate her today. She is on DVT prophylaxis, but with her the platelet count less than 50 I think this should be stopped. She is also on GI prophylaxis with pantoprazole. She is a FULL CODE. Family is not at the bedside currently, and I will update them prior to extubation. TIME: Critical care time is 60 minutes.
--- NOTE | 2017-03-14 11:49 | ABG ---
DateTimeAnalyzed 11:42:06 -_ pH ____7.458 - 7.350 7.450 pCO2 ___40.3__ -mmHg 35.0 45.0 pO2 104 -mmHg 69.0 116 HCO3- ___28.5__ -mmol/L 22.0 26.0 ABE ____4.3__ -mmol/L tHb ___10.7__ -g/dL O2Hb ___97.3__ -% COHb ____1.8__ -% 1.5 MetHb ____0.2__ -% sO2 ___99.2__ -% FIO2 ___30.0__ -% Pressure_Support ____5.0__ -cmH2O PEEP ____5.0__ -cmH2O Drawn By as - Date/Time Notified____ 11:49:00 -_ Spontaneous_RR 11 -b/min Oxygen Device 1 VENTILATOR - Notified By ams - Notified Whom dr parimi - K+ ____3.3__ -mmol/L tO2 ___14.8__ -Vol% Enio test N/A -
--- NOTE | 2017-03-14 12:15 | NUR ---
Dialysis note: 3 1/2 hours tx 3000 ml net UF Right IJ catheter, dsg changed, no s/s of infection noted Pls see DTR for VS details Qb 300 w/ cath limbs reversed A-V V-A due to poor cath function Heparin prime given On vent @ 30% FiO2 w/ sat in the high 90's to 100% Tolerated tx, cont'd on IV sedation Catheter flushed, heparin dwelled and secured Stable condition at end of tx Report given to Nini YORK
--- NOTE | 2017-03-14 12:58 | PCM.PNNEPH ---
Subjective Date of Service Mar 14, 2017 Subjective Improving. On CPAP mode. HD this morning,UF 3L. no complications. Exam Vital Signs Vital Sign - Last Date Time Temp Pulse Resp B/P Pulse Ox O2 Delivery O2 Flow Rate FiO2 03/14/17 12:00 36.8 72 144/53 99 30 03/14/17 08:00 Ventilator 03/14/17 04:00 16 Intake and Output 03/13/17 03/13/17 03/14/17 Cumulative From/Thru 15:00 23:00 07:00 03/11/17 06:07 - 03/14/17 06:08 Intake Total 1311 ml 981 ml 71351 ml Output Total 1000 ml 270 ml 320 ml 3600 ml Balance -1000 ml 1041 ml 661 ml 9084 ml Intake IV Total 1311 ml 981 ml 55557 ml Packed Cells 961 ml Output Urine Total 20 ml 20 ml 425 ml Stool Total 50 ml 100 ml 225 ml Gastric Drainage Total 200 ml 200 ml 450 ml Ultrafiltrate 1000 ml 2500 ml # Bowel Movements 2 Exam General appearance: Intubated on CPAP mode, responsive to painful stimuli. HEENT: Atraumatic. Moist mucous membranes. PERRLA. Mild pallor and icteric sclerae. No JVD. Heart: Regular rhythm. Normal S1, S2. Soft systolic murmur noted. Lungs: Clear to auscultation bilaterally. No wheezing. No rhonchi. Abdomen: Soft, obese. decreased BS. No fluid shift or fluid thrill. Extremities: 2+ edema on the lower extremities. Lab and Diagnostics Result Diagram: 03/14/17 0445 03/14/17 0445 Microbiology Item Value Date Time Adenovirus DNA (PCR) - Final Complete 03/12/17 1234 Nasopharangeal Not Detected Blood Culture Received 03/12/17 0848 Blood Aerobic And Anaerobic Bottle Pending Sputum Quality Screen - Final Resulted 03/11/17 2010 Trachea MRSA (PCR) - Final Complete 03/11/17 1600 Nose Blood Culture - Preliminary Resulted 03/11/17 0703 Blood Aerobic And Anaerobic Bottle Strep Agalactiae - (Group B) Streptococcus pneumoniae Ag Screen - Final Complete 03/11/17 0620 Urine,Random Blood Culture - Preliminary Resulted 03/11/17 0620 Blood Aerobic And Anaerobic Bottle Strep Agalactiae - (Group B) X-Rays, CTs and MRIs PROCEDURE: X-RAY PICC LINE PLACEMENT BY NURSE ([id number]) IMPRESSION: Tip of PICC lies within the atriocaval junction. PROCEDURE: X-RAY CHEST ONE VIEW, PORTABLE ([id number]) IMPRESSION: 1. Pulmonary vascular congestion may reflect fluid overload but etiology is indeterminate. 2. Increased heart size could reflect pericardial effusion. 3. Support tubes in position. PROCEDURE: CT CHEST, ABDOMEN AND PELVIS WITHOUT CONTRAST ([id number]) IMPRESSION: 1. Bilateral lower lobe infiltrates and consolidations consistent with pneumonia. 2. Cirrhotic liver. 3. Splenomegaly and large venous collaterals in upper abdomen consistent with portal hypertension. 4. A small amount of ascites. PROCEDURE: X-RAY CHEST ONE VIEW, PORTABLE ([id number]) IMPRESSION: Interval intubation. Left hemidiaphragm elevation with left basilar atelectasis. Cardiac Echo Impressions 03/12/17 Left ventricular wall thickness is borderline increased. The ejection fraction is estimated to be 60-65%. Left ventricular wall motion is normal. The right ventricle is normal in size and function. Right ventricular systolic pressure is estimated to be 30 mmHg plus the clinically estimated CVP which cannot be estimated on this exam. The left atrial size is normal. Right atrial size is normal. There is no significant valvular heart disease. No overt evidence for endocarditis. The aortic root is normal size. No significant changes since prior study on 02/16/2017. Echocardiogram Interpretation Summary Borderline concentric left ventricular hypertrophy with ejection fraction 60- 65%. Grade I diastolic dysfunction. No valvular abnormality. Comparison is made with the echocardiogram of 11/11/2016, there has been no significant change. Additional Diagnostics DateTimeAnalyzed 05:22:11 -_ pH ____7.445 - 7.350 7.450 pCO2 ___35.5__ -mmHg 35.0 45.0 pO2 ___86.5__ -mmHg 69.0 116 HCO3- ___24.4__ -mmol/L 22.0 26.0 FIO2 ___21.0__ -% PEEP ____5.0__ -cmH2O AGB 14:32:05 pH_7.378 pCO2_19.1 pO2_94.6 HCO3_11.3 Plan Impression 1. Acute kidney injury on chronic kidney disease secondary to ATN in the setting of sepsis. Requiring daily HD since 03/11. 2. Hyperkalemia. Resolved. 3. Anion gap metabolic acidosis. Resolved. 4. Strep agalactiae bacteremia. 5. AMS secondary to hepatic encephalopathy and sepsis. 6. 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 7. Acute respiratory failure due to sepsis. PLAN: Next HD in am, 3.5 hr, UF 1-2L. Weaning protocol. Continue IV abx. Renally dose medications. Avoid nephrotoxins. Teresita Kamara MD Mar 14, 2017 12:58
--- NOTE | 2017-03-14 17:51 | PCM.PNMED ---
Subjective Date of Service Mar 14, 2017 Subjective Overnight Events. No acute events overnight. Patient is resting in bed tolerating spontaneous breathing trial. She is currently sedated with decreasing Fentanyl. Due to her current altered mental status the patient was unable to report current conditions. Exam Vital Signs Vital Sign - Last Date Time Temp Pulse Resp B/P Pulse Ox O2 Delivery O2 Flow Rate FiO2 03/14/17 07:13 61 111/45 97 30 03/14/17 04:00 36.8 16 Mechanical Ventilator Intake and Output 03/13/17 03/13/17 03/14/17 Cumulative From/Thru 15:00 23:00 07:00 03/11/17 06:07 - 03/14/17 06:08 Intake Total 1311 ml 981 ml 46409 ml Output Total 1000 ml 270 ml 320 ml 3600 ml Balance -1000 ml 1041 ml 661 ml 9084 ml Intake IV Total 1311 ml 981 ml 77422 ml Packed Cells 961 ml Output Urine Total 20 ml 20 ml 425 ml Stool Total 50 ml 100 ml 225 ml Gastric Drainage Total 200 ml 200 ml 450 ml Ultrafiltrate 1000 ml 2500 ml # Bowel Movements 2 Exam General: Patient intubated and sedated. HEENT: Normocephalic, atraumatic. Pupils equal, round, and reactive to light and accommodation. Anicteric sclerae. Cardiovascular: Tachycardic rate and rhythm with no murmurs, rubs, or gallops appreciated Pulmonary: Intubated, equal air sounds bilaterally. Abdomen: Bowel tones present. Soft, Obese, scattered bruising, nondistended. Extremities: No clubbing, cyanosis, Moderate pitting edema to the knees, no lymphadenopathy appreciated. Skin: Normal temperature, turgor, scattered bruising, fragile with new skin tares and texture; no rash, ulcers, or subcutaneous nodules appreciated. Neurological: Unable to assess as patient intubated and sedated Psychiatric: Unable to assess as patient intubated and sedated IVs and Medications Medications Reviewed: Medications were reviewed in detail Lab and Diagnostics Result Diagram: 03/14/17 0445 03/14/17 0445 Microbiology Item Value Date Time Adenovirus DNA (PCR) - Final Complete 03/12/17 1234 Nasopharangeal Not Detected Blood Culture Received 03/12/17 0848 Blood Aerobic And Anaerobic Bottle Pending Sputum Quality Screen - Final Resulted 03/11/172009 Trachea MRSA (PCR) - Final Complete 03/11/17 1600 Nose Blood Culture - Preliminary Resulted 03/11/17 0703 Blood Aerobic And Anaerobic Bottle Strep Agalactiae - (Group B) Streptococcus pneumoniae Ag Screen - Final Complete 03/11/17 0620 Urine,Random Blood Culture - Preliminary Resulted 03/11/17 0620 Blood Aerobic And Anaerobic Bottle Strep Agalactiae - (Group B) X-Rays, CTs and MRIs PROCEDURE: X-RAY PICC LINE PLACEMENT BY NURSE ([id number]) IMPRESSION: Tip of PICC lies within the atriocaval junction. PROCEDURE: X-RAY CHEST ONE VIEW, PORTABLE ([id number]) IMPRESSION: 1. Pulmonary vascular congestion may reflect fluid overload but etiology is indeterminate. 2. Increased heart size could reflect pericardial effusion. 3. Support tubes in position. PROCEDURE: CT CHEST, ABDOMEN AND PELVIS WITHOUT CONTRAST ([id number]) IMPRESSION: 1. Bilateral lower lobe infiltrates and consolidations consistent with pneumonia. 2. Cirrhotic liver. 3. Splenomegaly and large venous collaterals in upper abdomen consistent with portal hypertension. 4. A small amount of ascites. PROCEDURE: X-RAY CHEST ONE VIEW, PORTABLE ([id number]) IMPRESSION: Interval intubation. Left hemidiaphragm elevation with left basilar atelectasis. Cardiac Echo Impressions 03/12/17 Left ventricular wall thickness is borderline increased. The ejection fraction is estimated to be 60-65%. Left ventricular wall motion is normal. The right ventricle is normal in size and function. Right ventricular systolic pressure is estimated to be 30 mmHg plus the clinically estimated CVP which cannot be estimated on this exam. The left atrial size is normal. Right atrial size is normal. There is no significant valvular heart disease. No overt evidence for endocarditis. The aortic root is normal size. No significant changes since prior study on 02/16/2017. Echocardiogram Interpretation Summary Borderline concentric left ventricular hypertrophy with ejection fraction 60- 65%. Grade I diastolic dysfunction. No valvular abnormality. Comparison is made with the echocardiogram of 11/11/2016, there has been no significant change. Additional Diagnostics DateTimeAnalyzed 05:22:11 -_ pH ____7.445 - 7.350 7.450 pCO2 ___35.5__ -mmHg 35.0 45.0 pO2 ___86.5__ -mmHg 69.0 116 HCO3- ___24.4__ -mmol/L 22.0 26.0 FIO2 ___21.0__ -% PEEP ____5.0__ -cmH2O AGB 14:32:05 pH_7.378 pCO2_19.1 pO2_94.6 HCO3_11.3 Assessment & Plan Ms. Shania To is a 62 year old lady here due to hepatic encephalopathy, non alcoholic steatoHepatits, Acute renal failure, and Insulin dependent Diabetes mellitus requiring emergent hemo-dialysis and lactulose treatments. She is extubated and tolerating RA and no current sedation medications. Encephalopathy, Present on admission. Active. - Initially Secondary to endstage liver cirrhosis/MOSHER and high ammonia levels. - History of Grade 2 esophageal varicies (August), Portal htn gastropathy. - Ammonia 307 initially. Currently 40. - Lactulose at 200 mg rectally Q4H with rectal balloon 30-60 mins. [address] tube in place. Severe Sepsis, not present on admission. Improved. Met SIRS criteria with; Tachycardia, tachypnea and Fever. Lactic acid elevated. - Likely secondary to bacteremia - Temp 38.2, HR 107, RR 36. Cr 5.4. - Blood cultures x4: Strep agalactiae - PICC in place in case of need for pressors. Levophed drip as needed. Bacteremia, present on admission, Active 4/4 positive blood cultures for Strep agalactiae. - Switched from Ceftriaxone to Penicillin 03/12/17 per ID recommendation. - ID consulted and will see patient, Melquiades out of town till early march. Ventilator Dependent Respiratory Failure, not present on admission, Resolved. Patient required intubation for urgent line placement for dialysis. - Management per ICU team - Sedated on propofol and fentanyl - Daily ABG and chest x-ray Acute on Chronic Normocytic Anemia, Present on admission. Active. - Hgb 9.5 went down to 6.8. Required 3 units PRBC with improvement to 9.2. Source of blood loss currently unknown. - LDH is elevated, Haptoglobin decreased. - Continue to monitor Acute Renal Failure, Present on admission. Improved - Initially thought to be 2nd to pre-renal azotemia. - Creatinine 5.4, baseline 1.3. BUN 102. - Monitor I/O, Maya in place. - IV fluids given NS @ 250 ml/hr. - Nephrology consulted, recommendations appreciated. - Hemodialysis done daily since 03/11/17 Acute Hyperkalemia, Present on admission. Resolved - Secondary to renal failure. EKG reviewed, with no T wave abnormalities. NSR. - Hemodilaysis done daily since 03/11/17 Mixed Anion Gap Metabolic Acidosis and alkalosis and Respiratory Alkalosis. Present on admission. Resolved - AG - 22, Delta AG 10, Delta Bicarb 13. calculated PaCO2 24. - ABG as above. Repeat today Grade 1 Diastolic Heart failure, chronic. Present on admission. Active. - With pulmonary hypertension. - Echo 03/12/17 and February 16 as above. Insulin Using Diabetes Mellitus, Present on admission. Active. HgA1C 5.9 - Start home Lantus 50 U daily when extubated and tolerating PO intake - High dose correctional scale. Chronic Thrombocytopenia. Present on admission. Active. - Likely Splenic sequestration. - Monitor. Demand Ischemia, with elevated Troponins. Chronic, present on admission. Active. - Elevated tropes - 0.166, with Q6 H trend. No EKG changes. - Previous tropoinins elevated. - Stress test 02/16/17 showed no ischemia. - Repeat Echocardiogram, results as above Morbid Obesity. - BMI 41.1 Hypertension, chronic. - Continue home meds when appropriate. Subclinical Hypothyroidism,acute on chronic. - Continue home Synthroid. Acetaminophen for mild pain when necessary. Bowel regimen Senna and MiraLAX scheduled and PRN. Zofran when necessary for nausea and vomiting. SubQ heparin held for now. SCDs in place. Disposition: Likely here for > 2 midnights. Dependent upon mental status and renal function. Will be discharged to likely home when medically stable. Pain Evaluation: Adequate Pain Control Resuscitation Status: CPR: Attempt Resuscitation Attending Statement The patient was seen and examined together with Dr. Jason on 03/14/2017 and I agree with the history, exam and plan as outlined in the note above. . LORAINE JASON DO Mar 14, 2017 07:23 Paramjit Parks MD Mar 16, 2017 10:14
--- NOTE | 2017-03-14 17:56 | NUR ---
Extubation/mentation/respiratory Pt tolerated SBT well and was able to maintain good volumes and RR. Sedation was turned off 30 minutes prior to extubation (see CCU flow sheet for titration) and pt was extubated at 1245. Pt sats in mid to high 90s on 3L NC, RR 11-15. Pt can nod yes or no answers and briefly opens eyes, but does not squeeze hands or follow many commands. Checked ammonia level and monitoring vitals and LOC. Giving lactulose through FMS and clamping for 1 hour post dosing. Q2h turns and oral care continues, using yankaur. Pt's family at bedside.
[2017-03-14] MEDS: fentaNYL 2,500 mCg/250 mL 2,500 MCG in IV Premix 1 EACH IV SCH (20:36)
--- NOTE | 2017-03-14 20:38 | ABG ---
DateTimeAnalyzed 20:30:00 -_ pH ____7.381 - 7.350 7.450 pCO2 ___42.1__ -mmHg 35.0 45.0 pO2 ___95.6__ -mmHg 69.0 116 HCO3- ___24.4__ -mmol/L 22.0 26.0 ABE ___-0.2__ -mmol/L -2.0 2.0 tHb ___10.2__ -g/dL O2Hb ___94.5__ -% COHb ____2.5__ -% MetHb ____0.0__ -% sO2 ___96.9__ -% FIO2 ___28.0__ -% Drawn By TLA - Date/Time Notified____ 20:38:00 -_ Liter_Flow ____2.0__ -L/min Oxygen Device 1 __CANNULA - Notified By TLA - Notified Whom _Maria RN - B 758 -mmHg tO2 ___13.7__ -Vol% Enio test N/A -
[2017-03-15] VITALS (7 sets, daily range): BP systolic 104–123; BP diastolic 38–48; PULSE 65–80; RESP 8–16; O2SAT 96–99
[2017-03-15] MEDS: Penicillin G K Inj 3,000,000 UNITS in IV Premix 1 EACH IV SCH ×3 (00:18→16:54)
[2017-03-15] MEDS: Lactulose 20 Gm/30 mL 30 mL Syrup TUBE SCH ×3 (00:19→16:54)
[2017-03-15] MEDS ORDERED: Mag Sulf 2 Gm/50mL IV Premix(Mag < 1.6 & Creat > 2) IV ONE (01:20)
[2017-03-15 04:07] LABS: BASOPHILS % (AUTO) 0.1 % (0-3); EOSINOPHILS % (AUTO) 0.6 % (0-5); MONOCYTES % (AUTO) 8.5 % (4-12); Mean Corpuscular Hemoglobin 29.5 pg (27.0-35.0); NEUTROPHILS % (AUTO) 80.1 % (40-74); Platelet Count 49 bil/L (150-400)
[2017-03-15 04:29] LABS: Magnesium 2.1 mg/dL (1.6-2.6)
--- NOTE | 2017-03-15 05:23 | NUR ---
neuro pt very sleepy, pt opens eyes to stimulation but does no track, pt resists turning, ls- decreased t/o, shallow respirations, hob up, resp rate=9-12, sats upper 90's on two liters o2 per nc, good oral care done, abg's done due to decreased loc and shallow resp effort and rate, abg's wnl, resident aware of pt's decreased loc and abg results, no new orders, bg=79 and 89 also, mg rider given per resident order, minimal andressa uop per f/c, liquid brown stool per fms, right ij dialysis cath intact, right picc line intact left radial a line intact, see ccu flow sheet,
[2017-03-15] MEDS: Insulin LISPRO 300 Unit/3 mL Inj SUBQ SCH ×4 (08:00→22:00)
[2017-03-15] MEDS: Pantoprazole 4 mg/mL 10 mL Inj IVPUSH SCH ×2 (08:25→16:54)
[2017-03-15] MEDS: Norepineph 8,000 mCg/250 mL NS 8,000 MCG in IV Premix 1 EACH IV SCH ×2 (08:53→18:08)
--- NOTE | 2017-03-15 10:17 | NUR ---
NUTRITION FOLLOW UP: ASSESS: 62 YO F admitted to CCU with hepatic encephalopathy, non alcoholic steatohepatitis, severe sepsis and acute renal failure. She required intubation and initiation of daily dialysis. Pt extubated 03/14. Pt remains NPO X 4 days = inadequate nutrition. PMHx: Hepatitis C, Liver cirrhosis, thrombocytopenia secondary to splenic sequestration, portal HTN, leg edema, ascites, hypervolemic hypotonic hyponatremia,, type 2 diabetes ID, GERD, depression, cholecystectomy. DIET: NPO X 4 days. LABS: Reviewed. Cr 3.37, Ca 7.9, T.bili 2.1, Alk Phos 188, Alb 2.0, PAB 7 MEDICATIONS: Reviewed. Lactulose, Propofol. GI: 2 BM 03/11. SKIN: Wound consult initiated related to Jorge 10; evaluation pending. ANTHROPOMETRICS: Current Wt: 102.3 kg, BMI: 44.0 kg/m2. IBW: 45.5 kg, Adj. BW 59.7 kg. ESTIMATED NEEDS (BMI, RENAL DIALYSIS, ES LIVER DISEASE): Calories: 5672-1178 kcal (30-35 kcal/kg Adj. BW) Protein: 89-107 g/day (1.5-1.8 g/kg Adj. BW) NUTRITION DIAGNOSIS: 1) Increased nutrient needs related to increased demand for nutrients, as evidenced by requirement for renal dialysis, end-stage liver disease.---PERSISTS. 2) Inadequate oral intake related to inability to consume sufficient energy, as evidenced by NPO status.---PERSISTS. INTERVENTION: 1) As pt is extubated, recommend speech therapy evaluation and timely advancement of diet. 2) If diet unable to advance, recommend nutrition support. Recommend initiating enteral nutrition of Nepro starting at 10 ml/hr, once tolerance established, advance 10 ml q 4 hr to goal rate of 50 ml/hr. At goal TF would provide 1980 kcal, 89 g protein; meeting 100% of calorie/protein needs. MONITOR/EVALUATE: NPO status, nutrition support, POC, labs, GI/nutrition status. Follow per high nutrition risk guidelines.
--- NOTE | 2017-03-15 11:36 | PCM.PNNEPH ---
Subjective Date of Service Mar 15, 2017 Subjective s/p extubation. nonverbal. not following commands. HD yesterday, 3L UF. remains anuric. Exam Vital Signs Vital Sign - Last Date Time Temp Pulse Resp B/P Pulse Ox O2 Delivery O2 Flow Rate FiO2 03/15/17 08:30 36.6 65 8 114/42 99 Nasal Cannula 2.00 03/14/17 12:00 30 Intake and Output 03/14/17 03/14/17 03/15/17 Cumulative From/Thru 15:00 23:00 07:00 03/11/17 06:07 - 03/15/17 06:24 Intake Total 323 ml 261 ml 88635 ml Output Total 3000 ml 130 ml 130 ml 6860 ml Balance -3000 ml 193 ml 131 ml 6408 ml Intake Oral 0 ml 0 ml IV Total 323 ml 261 ml 09107 ml Packed Cells 961 ml Output Urine Total 30 ml 30 ml 485 ml Stool Total 100 ml 100 ml 425 ml Gastric Drainage Total 450 ml Ultrafiltrate 3000 ml 5500 ml # Bowel Movements 2 Exam General appearance: nonverbal, responsive to verbal and painful stimuli. not following command. HEENT: Atraumatic. Moist mucous membranes. PERRLA. Mild pallor, No JVD. right IJ HD cath placement. Heart: Regular rhythm. Normal S1, S2. Soft systolic murmur noted. Lungs: decreased BS at bases, No wheezing. No rhonchi. Abdomen: Soft, obese. decreased BS. No fluid shift or fluid thrill. Extremities: 2+ edema on the lower extremities. Ecchymosis noted on UE. Lab and Diagnostics Result Diagram: 03/15/17 0340 03/15/17 0340 Microbiology Item Value Date Time Adenovirus DNA (PCR) - Final Complete 03/12/17 1234 Nasopharangeal Not Detected Blood Culture Received 03/12/17 0848 Blood Aerobic And Anaerobic Bottle Pending Sputum Quality Screen - Final Resulted 03/11/17 2010 Trachea MRSA (PCR) - Final Complete 03/11/17 1600 Nose Blood Culture - Preliminary Resulted 03/11/17 0703 Blood Aerobic And Anaerobic Bottle Strep Agalactiae - (Group B) Streptococcus pneumoniae Ag Screen - Final Complete 03/11/17 0620 Urine,Random Blood Culture - Preliminary Resulted 03/11/17 0620 Blood Aerobic And Anaerobic Bottle Strep Agalactiae - (Group B) X-Rays, CTs and MRIs PROCEDURE: X-RAY PICC LINE PLACEMENT BY NURSE ([id number]) IMPRESSION: Tip of PICC lies within the atriocaval junction. PROCEDURE: X-RAY CHEST ONE VIEW, PORTABLE ([id number]) IMPRESSION: 1. Pulmonary vascular congestion may reflect fluid overload but etiology is indeterminate. 2. Increased heart size could reflect pericardial effusion. 3. Support tubes in position. PROCEDURE: CT CHEST, ABDOMEN AND PELVIS WITHOUT CONTRAST ([id number]) IMPRESSION: 1. Bilateral lower lobe infiltrates and consolidations consistent with pneumonia. 2. Cirrhotic liver. 3. Splenomegaly and large venous collaterals in upper abdomen consistent with portal hypertension. 4. A small amount of ascites. PROCEDURE: X-RAY CHEST ONE VIEW, PORTABLE ([id number]) IMPRESSION: Interval intubation. Left hemidiaphragm elevation with left basilar atelectasis. Cardiac Echo Impressions 03/12/17 Left ventricular wall thickness is borderline increased. The ejection fraction is estimated to be 60-65%. Left ventricular wall motion is normal. The right ventricle is normal in size and function. Right ventricular systolic pressure is estimated to be 30 mmHg plus the clinically estimated CVP which cannot be estimated on this exam. The left atrial size is normal. Right atrial size is normal. There is no significant valvular heart disease. No overt evidence for endocarditis. The aortic root is normal size. No significant changes since prior study on 02/16/2017. Echocardiogram Interpretation Summary Borderline concentric left ventricular hypertrophy with ejection fraction 60- 65%. Grade I diastolic dysfunction. No valvular abnormality. Comparison is made with the echocardiogram of 11/11/2016, there has been no significant change. Additional Diagnostics DateTimeAnalyzed 05:22:11 -_ pH ____7.445 - 7.350 7.450 pCO2 ___35.5__ -mmHg 35.0 45.0 pO2 ___86.5__ -mmHg 69.0 116 HCO3- ___24.4__ -mmol/L 22.0 26.0 FIO2 ___21.0__ -% PEEP ____5.0__ -cmH2O AGB 14:32:05 pH_7.378 pCO2_19.1 pO2_94.6 HCO3_11.3 Plan Impression 1. Acute kidney injury on chronic kidney disease secondary to ATN in the setting of sepsis. Requiring daily HD since 03/11. 2. Hyperkalemia. Resolved. 3. Anion gap metabolic acidosis. Resolved. 4. Strep agalactiae bacteremia. 5. AMS secondary to hepatic encephalopathy and sepsis. 6. 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 7. Acute respiratory failure due to sepsis. PLAN: HD again today 3.5 hr, UF as tolerated. Continue IV abx. Renally dose medications. Avoid nephrotoxins. Teresita Kamara MD Mar 15, 2017 11:36
--- NOTE | 2017-03-15 11:51 | NUR ---
Social Work Note: Brief Note/Multidisciplinary Rounds Data& Assessment: Pt was discussed in AM rounds today, per MD pt remains medically complex and remains on the vent with daily dialysis. Shania To is a 62 year old female admitted on 03/11/2017 for AMS and ARF. Pt remains in CCU on the vent. Pt lives in with her daughter at home. Pt does not qualify for health insurance. No MD orders at this time. SW to continue to follow for discharge planning needs and MD orders. SW to follow up with pt family regarding initial assessment. Plan: Pt remains on the vent. SW to continue to follow for discharge planning needs and MD orders. SW to follow up with pt family regarding initial assessment. SUZANNE Garcaí
--- NOTE | 2017-03-15 14:41 | PROG NOTE ---
[address] [address] PROGRESS NOTE PATIENT: NILESH SPRINGER : 1955 MR#: [id number] ADMIT: 03/11/2017 JOB ID: [id number] DATE: 03/15/2017 PROBLEM LIST: 1. 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 2. Acute renal failure. 3. Bacteremia with Strep agalactiae. 4. Hepatic encephalopathy. 5. Hypoxemic respiratory failure, improved. SUBJECTIVE: None. The patient is minimally responsive. Opens her eyes to verbal stimuli, though does not make any cognitive contact. OBJECTIVE: Temperature 36.6. Pulse 65, respiratory rate 18-11, blood pressure 114/42, O2 sat on 2 L is 99%. General appearance: No acute distress. Eyes: Conjunctivae are pink. No scleral icterus. Pupils about 2 mm and seemingly reactive. Nose and throat could not be examined. Chest: Fair breath sounds bilaterally. Lung perales are clear. No use of accessory muscles. Heart: Regular rhythm. Heart tones normal. Abdomen is soft. Nondistended. Possibly some very mild tenderness in the right upper quadrant with possibly liver edge felt about 2 cm below the right costal margin. Spleen not palpable. Few bowel tones. Extremities: 2 to 3+ pretibial edema. LABORATORY DATA: Shows a white count of 13,600, slowly increasing, with 80 polymorphonuclears, no bands, 10 lymphocytes. Hemoglobin stable at 9.8. Platelet count 49,000 and stable. Sodium 144, potassium 4.2, chloride 106, CO2 is 23. BUN 24 and stable. Creatinine 3.37 and unchanged. Calcium 7.9 with albumin of 2. Magnesium 2.1. Total bilirubin 2.1, slowly decreasing. AST normal at 42. ALT normal at 24. Alkaline phos mildly elevated at 188, upper limits of normal being 165. Ammonia level is 40. Arterial blood gases last evening on 2 L of oxygen showed pO2 95, pCO2 42, pH is 7.38. ASSESSMENT: Hypoxemic respiratory failure. Significantly improved. Mild A-a O2 gradient. Ventilation, in spite of her stuporous state, is adequate with normal CO2, bicarbonate and pH in spite of the renal failure. Plan is to repeat dialysis again today. Hopefully, to take off some more fluid. Hopefully this might result in some improvement in her mental status. Currently, receiving lactulose for her hepatic encephalopathy. Had been receiving propofol and fentanyl up until yesterday for control of agitation on the ventilator. Hopefully, that will too improve with time and dialysis. For the moment, seems to be protecting her airway but that remains to be seen how things proceed. The markedly abnormal renal function in the face of the hepatic dysfunction is certainly ominous. The hope would be that her renal function soon improves. PLAN: 1. Continue supplemental oxygen. Do not see a need for assisted ventilation at this point. 2. Dialysis today. Time spent in critical care, 35 minutes.
--- NOTE | 2017-03-15 17:11 | NUR ---
Dialysis note: 3.5hr tx completed via R temporary catheter. Catheter ports reversed d/t inadequate arterial flow, BFR at 350. BVP 70.7, Net fl removed 1600ml. Art line in place with pressures stable at 100-110 during tx. Catheter dresg CD&I, no signs of infection
--- NOTE | 2017-03-15 17:21 | NUR ---
P: Altered Mental Status I: Pt opens her eyes but doesn't really track. Unable to follow commands. NS TKO. HD done without difficulty. NPO. Maya patent but putting out no urine. family at bedside and updated by Dr. Glynn and . Turned Q 2 hours. FMS draining liquid brown stool, Oral care done Q 4 hours but does not open her mouth. Blood sugars has not needed coverage. NSR. Afebrile. E: Stable S: No restraints needed. Pt is not pulling at lines or trying to get up out of bed. Frequent rounding.
[2017-03-15] MEDS: Propofol Inj 1,000,000 MCG in IV Premix 1 EACH IV SCH (19:10)
[2017-03-15] MEDS: fentaNYL 2,500 mCg/250 mL 2,500 MCG in IV Premix 1 EACH IV SCH (19:10)
--- NOTE | 2017-03-15 19:52 | PCM.PNMED ---
Subjective Date of Service Mar 15, 2017 Subjective Assessment: Patient extubated yesterday and appears to be breathing well on her own. She remains mildly responsive to external stimuli however is unable to obey commands at this time. Events Overnight: No acute events overnight. ROS: Due to comatose nature of this patient a review of systems was unable to be obtained. Exam Vital Signs Vital Sign - Last Date Time Temp Pulse Resp B/P Pulse Ox O2 Delivery O2 Flow Rate FiO2 03/15/17 16:30 36.6 74 16 111/40 96 Nasal Cannula 2.00 03/14/17 12:00 30 Intake and Output 03/14/17 03/14/17 03/15/17 Cumulative From/Thru 15:00 23:00 07:00 03/11/17 06:07 - 03/15/17 06:24 Intake Total 323 ml 261 ml 40353 ml Output Total 3000 ml 130 ml 130 ml 6860 ml Balance -3000 ml 193 ml 131 ml 6408 ml Intake Oral 0 ml 0 ml IV Total 323 ml 261 ml 80855 ml Packed Cells 961 ml Output Urine Total 30 ml 30 ml 485 ml Stool Total 100 ml 100 ml 425 ml Gastric Drainage Total 450 ml Ultrafiltrate 3000 ml 5500 ml # Bowel Movements 2 Exam General: Patient obtunded, mildly responsive to verbal stimuli HEENT: Normocephalic, atraumatic. Pupils equal, round, and minimally reactive to light and accommodation. Anicteric sclerae. Cardiovascular: Tachycardic rate and rhythm with minor systolic murmur, no rubs , or gallops appreciated Pulmonary: Clear to auscultation bilaterally, equal air sounds bilaterally. Abdomen: Bowel tones present. Soft, Obese, scattered bruising, nondistended. Extremities: No clubbing, cyanosis, severe pitting edema of the arms and legs, no lymphadenopathy appreciated. Skin: Normal temperature, turgor, scattered bruising, no rash, ulcers, or subcutaneous nodules appreciated. Neurological: Difficult to assess as patient is obtunded Psychiatric: Unable to assess as patient is obtunded IVs and Medications IV Fluids 250 mL norepinephrine 50 mls penicillin Medications Reviewed: Medications were reviewed in detail Medications Lactulose Pantoprazole Lab and Diagnostics Item Value Date Time Red Blood Count 3.32 mil/mm3 L 03/15/17 0340 Mean Corpuscular Volume 88.0 fL 03/15/17 0340 Mean Corpuscular Hemoglobin 29.5 pg 03/15/17 0340 Mean Corpuscular Hemoglobin Concent 33.6 % 03/15/17 0340 Red Cell Distribution Width 15.4 % 03/15/17 0340 Neutrophils (%) (Auto) 80.1 % H 03/15/17 034 Lymphocytes (%) (Auto) 10.1 % L 03/15/17 0340 Result Diagram: 03/15/17 03403/15/17 034 Microbiology Item Value Date Time Adenovirus DNA (PCR) - Final Complete 03/12/17 1234 Nasopharangeal Not Detected Blood Culture Received 03/12/17 0848 Blood Aerobic And Anaerobic Bottle Pending Sputum Quality Screen - Final Resulted 03/11/17 2010 Trachea MRSA (PCR) - Final Complete 03/11/17 1600 Nose Blood Culture - Preliminary Resulted 03/11/17 0703 Blood Aerobic And Anaerobic Bottle Strep Agalactiae - (Group B) Streptococcus pneumoniae Ag Screen - Final Complete 03/11/17 0620 Urine,Random Blood Culture - Preliminary Resulted 03/11/17 0620 Blood Aerobic And Anaerobic Bottle Strep Agalactiae - (Group B) X-Rays, CTs and MRIs PROCEDURE: X-RAY PICC LINE PLACEMENT BY NURSE ([id number]) IMPRESSION: Tip of PICC lies within the atriocaval junction. PROCEDURE: X-RAY CHEST ONE VIEW, PORTABLE ([id number]) IMPRESSION: 1. Pulmonary vascular congestion may reflect fluid overload but etiology is indeterminate. 2. Increased heart size could reflect pericardial effusion. 3. Support tubes in position. PROCEDURE: CT CHEST, ABDOMEN AND PELVIS WITHOUT CONTRAST ([id number]) IMPRESSION: 1. Bilateral lower lobe infiltrates and consolidations consistent with pneumonia. 2. Cirrhotic liver. 3. Splenomegaly and large venous collaterals in upper abdomen consistent with portal hypertension. 4. A small amount of ascites. PROCEDURE: X-RAY CHEST ONE VIEW, PORTABLE ([id number]) IMPRESSION: Interval intubation. Left hemidiaphragm elevation with left basilar atelectasis. Cardiac Echo Impressions 03/12/17 Left ventricular wall thickness is borderline increased. The ejection fraction is estimated to be 60-65%. Left ventricular wall motion is normal. The right ventricle is normal in size and function. Right ventricular systolic pressure is estimated to be 30 mmHg plus the clinically estimated CVP which cannot be estimated on this exam. The left atrial size is normal. Right atrial size is normal. There is no significant valvular heart disease. No overt evidence for endocarditis. The aortic root is normal size. No significant changes since prior study on 02/16/2017. Echocardiogram Interpretation Summary Borderline concentric left ventricular hypertrophy with ejection fraction 60- 65%. Grade I diastolic dysfunction. No valvular abnormality. Comparison is made with the echocardiogram of 11/11/2016, there has been no significant change. Additional Diagnostics DateTimeAnalyzed 05:22:11 -_ pH ____7.445 - 7.350 7.450 pCO2 ___35.5__ -mmHg 35.0 45.0 pO2 ___86.5__ -mmHg 69.0 116 HCO3- ___24.4__ -mmol/L 22.0 26.0 FIO2 ___21.0__ -% PEEP ____5.0__ -cmH2O AGB 14:32:05 pH_7.378 pCO2_19.1 pO2_94.6 HCO3_11.3 Assessment & Plan Ms. Shania To is a 62 year old lady here due to hepatic encephalopathy, non alcoholic steatoHepatits, Acute renal failure, and Insulin dependent Diabetes mellitus requiring emergent hemo-dialysis and lactulose treatments. She is extubated and tolerating RA and no current sedation medications. Encephalopathy, Present on admission. Active. - Initially Secondary to endstage liver cirrhosis/MOSHER and high ammonia levels. - History of Grade 2 esophageal varicies (August), Portal htn gastropathy. - Ammonia 307 initially. Currently 40. - Lactulose at 200 mg rectally Q4H with rectal balloon 30-[address] mins[address] tube in place. - Ongoing sedation likely due to decreased renal clearance. Patient was dialyzed yesterday and will continue dialysis daily until she regains consciousness. Severe Sepsis, not present on admission. Improved. Met SIRS criteria with; Tachycardia, tachypnea and Fever. Lactic acid initially elevated but has now returned to normal levels. - Likely secondary to bacteremia currently being treated with penicillin. - Initial Temp 38.2, HR 107, RR 36. Cr 5.4. - Vitals now within normal limits. - Blood cultures x4: Strep agalactiae - PICC in place in case of need for pressors. Levophed drip as needed. Bacteremia, present on admission, Active / positive blood cultures for Strep agalactiae. - Switched from Ceftriaxone to Penicillin 03/12/17 per ID recommendation. - ID consulted and will see patientMelquiades out of town till early march. Ventilator Dependent Respiratory Failure, not present on admission, Resolved. - Patient required intubation for urgent line placement for dialysis. - Previously Sedated on propofol and fentanyl, this was DC yesterday the patient remains obtunded - Extubated on 03/14 and breathing well on room air. - Daily ABG and chest x-ray Acute on Chronic Normocytic Anemia, Present on admission. Active. - Hgb 9.5 initially, went down to 6.8, Required 3 units PRBC with improvement to 9.2. Today blood counts remain stable. Source of blood loss currently unknown. - LDH is elevated, Haptoglobin decreased. - Continue to monitor Acute Renal Failure, Present on admission. Improved - Initially thought to be 2nd to pre-renal azotemia. - Creatinine 5.4, baseline 1.3. BUN 102. - Monitor I/O, Maya in place. - IV fluids given NS @ 250 ml/hr. - Nephrology consulted, recommendations appreciated. - Hemodialysis done daily since 03/11/17 Acute Hyperkalemia, Present on admission. Resolved - Secondary to renal failure. EKG reviewed, with no T wave abnormalities. NSR. - Hemodilaysis done daily since 03/11/17 Mixed Anion Gap Metabolic Acidosis and alkalosis and Respiratory Alkalosis. Present on admission. Resolved - AG - 22, Delta AG 10, Delta Bicarb 13. calculated PaCO2 24. - ABG as above. Repeat today Grade 1 Diastolic Heart failure, chronic. Present on admission. Active. - With pulmonary hypertension. - Echo 03/12/17 and 02/16 as above. Insulin Using Diabetes Mellitus, Present on admission. Active. HgA1C 5.9 - Start home Lantus 50 U daily when awake and tolerating PO intake - High dose correctional scale. Chronic Thrombocytopenia. Present on admission. Active. - Likely Splenic sequestration. - Monitor. Demand Ischemia, with elevated Troponins. Chronic, present on admission. Active. - Elevated tropes - 0.166, with Q6 H trend. No EKG changes. - Previous tropoinins elevated. - Stress test 02/16/17 showed no ischemia. - Echocardiogram repeat on 03/12 shows "Left ventricular wall thickness is borderline increased. The ejection fraction is estimated to be 60-65%. No significant changes since prior study on 02/16/2017." Morbid Obesity. - BMI 41.1 Hypertension, chronic. - Continue home meds when appropriate. Subclinical Hypothyroidism,acute on chronic. - Continue home Synthroid. Acetaminophen for mild pain when necessary. Bowel regimen Senna and MiraLAX scheduled and PRN. Zofran when necessary for nausea and vomiting. SubQ heparin held for now. SCDs in place. Disposition: The patient seems to be progressing daily. We'll continue to monitor the patient and treat accordingly. At this time the patient is very tenuous and will need close monitoring for her many organ system issues stemming from her hepatorenal syndrome. VTE Mechanical Devices: Intermittant Pneumatic CD Resuscitation Status: CPR: Attempt Resuscitation Attending Statement The patient was seen and examined together with Dr. Winchester on 03/15/17 and I have added additional information to the note above. Sigifredo Winchester DO Mar 15, 2017 19:52 Mayra Glynn DO Mar 19, 2017 18:05
[2017-03-16] VITALS (7 sets, daily range): BP systolic 107–132; BP diastolic 34–48; PULSE 70–77; RESP 15–22; O2SAT 95–98
[2017-03-16] MEDS: Lactulose 20 Gm/30 mL 30 mL Syrup TUBE SCH ×3 (00:30→16:29)
[2017-03-16] MEDS: Penicillin G K Inj 3,000,000 UNITS in IV Premix 1 EACH IV SCH ×3 (00:38→16:29)
--- NOTE | 2017-03-16 02:56 | NUR ---
P) Altered LOC Pt. opens eyes spontaneously but does not appear to track, stares at ceiling, does not follow any commands but moves her arm and legs and when turned stated "Oh m God", at another point I asked her if she new where she was, she said "hay" or "yes" but did not answer any other questions, considering deliberate non-cooperation. Cardiac rhythm sinus with an IVCD, able to wean off the norepi so far, low grade temp. tonight, T-max 37.2c orally. Lungs with breath sounds decreased in bases, R more decreased than L, blood sugars WNL, no insulin coverage needed as yet. Of note, the 4th toe on her R foot appears dusky, dorsalis pedis pulses palpable but faint, pitting pedal edema. Pt. has so far put out 5ml of cloudy, brown, urine. I) Meds per 's orders, cont. close monitoring, turning q2h and floating heels. I) Resting quietly with eyes closed between care.
[2017-03-16] MEDS: Sodium Chloride LOK Flush 10 mL Syringe IVFLUSH PRN (04:15)
[2017-03-16 04:54] LABS: BASOPHILS % (AUTO) 0.1 % (0-3); EOSINOPHILS % (AUTO) 1.5 % (0-5); MONOCYTES % (AUTO) 8.7 % (4-12); Mean Corpuscular Hemoglobin 29.6 pg (27.0-35.0); Mean Corpuscular Volume 89.4 fL (81-100); Platelet Count 51 bil/L (150-400)
[2017-03-16] MEDS: Insulin LISPRO 300 Unit/3 mL Inj SUBQ SCH ×4 (08:00→21:59)
[2017-03-16] MEDS: Pantoprazole 4 mg/mL 10 mL Inj IVPUSH SCH ×2 (08:01→16:28)
--- NOTE | 2017-03-16 10:12 | PCM.PNMED ---
Subjective Date of Service Mar 16, 2017 Subjective Assessment: Patient was obtunded today, however more lucid than yesterday. Not yet following commands. Events Overnight: No acute events overnight. ROS: Due to the patient being obtunded a review of systems was unable to be obtained. Exam Vital Signs Vital Sign - Last Date Time Temp Pulse Resp B/P Pulse Ox O2 Delivery O2 Flow Rate FiO2 03/16/17 04:00 37.1 71 15 107/44 95 Nasal Cannula 2.00 03/14/17 12:00 30 Intake and Output 03/15/17 03/15/17 03/16/17 Cumulative From/Thru 15:00 23:00 07:00 03/11/17 06:07 - 03/16/17 06:24 Intake Total 156 ml 252 ml 60881 ml Output Total 1600 ml 216 ml 8676 ml Balance -1444 ml 36 ml 5000 ml Intake Oral 0 ml IV Total 156 ml 252 ml 01453 ml Packed Cells 961 ml Output Urine Total 0 ml 10 ml 495 ml Stool Total 206 ml 631 ml Gastric Drainage Total 450 ml Ultrafiltrate 1600 ml 7100 ml # Bowel Movements 2 Exam General: Minor attempts at verbal medication, responsive to verbal and painful stimuli. not following commands. No acute distress HEENT: Atraumatic. Moist mucous membranes. PERRLA. Anicteric sclerae, moist conjunctivae. Mild pallor, No JVD. right IJ HD cath placement. Heart: Regular rhythm. Normal S1, S2. systolic murmur appreciated. Lungs: Clear to auscultation bilaterally with no crackles, wheezes, or rhonchi. Normal respiratory effort with no use of accessory muscles. Abdomen: Soft, obese. No fluid shift or fluid thrill. Extremities: Moderate edema on the upper and lower extremities. Ecchymosis noted on right upper extremity Psych: Patient's mood and affect are somnolent IVs and Medications IV Fluids 40 mL normal saline IV flush 50 mL penicillin every 8 Medications Reviewed: Medications were reviewed in detail Medications Penicillin IV Lab and Diagnostics Result Diagram: 03/16/17 0415 03/15/17 0340 Microbiology Item Value Date Time Adenovirus DNA (PCR) - Final Complete 03/12/17 1234 Nasopharangeal Not Detected Blood Culture Received 03/12/17 0848 Blood Aerobic And Anaerobic Bottle Pending Sputum Quality Screen - Final Resulted 7/20/17 2010 Trachea MRSA (PCR) - Final Complete 03/11/17 1600 Nose Blood Culture - Preliminary Resulted 03/11/17 0703 Blood Aerobic And Anaerobic Bottle Strep Agalactiae - (Group B) Streptococcus pneumoniae Ag Screen - Final Complete 03/11/17 0620 Urine,Random Blood Culture - Preliminary Resulted 03/11/17 0620 Blood Aerobic And Anaerobic Bottle Strep Agalactiae - (Group B) X-Rays, CTs and MRIs PROCEDURE: X-RAY PICC LINE PLACEMENT BY NURSE ([id number]) IMPRESSION: Tip of PICC lies within the atriocaval junction. PROCEDURE: X-RAY CHEST ONE VIEW, PORTABLE ([id number]) IMPRESSION: 1. Pulmonary vascular congestion may reflect fluid overload but etiology is indeterminate. 2. Increased heart size could reflect pericardial effusion. 3. Support tubes in position. PROCEDURE: CT CHEST, ABDOMEN AND PELVIS WITHOUT CONTRAST ([id number]) IMPRESSION: 1. Bilateral lower lobe infiltrates and consolidations consistent with pneumonia. 2. Cirrhotic liver. 3. Splenomegaly and large venous collaterals in upper abdomen consistent with portal hypertension. 4. A small amount of ascites. PROCEDURE: X-RAY CHEST ONE VIEW, PORTABLE ([id number]) IMPRESSION: Interval intubation. Left hemidiaphragm elevation with left basilar atelectasis. . Cardiac Echo Impressions Echocardiogram 03/12/17 Left ventricular wall thickness is borderline increased. The ejection fraction is estimated to be 60-65%. Left ventricular wall motion is normal. The right ventricle is normal in size and function. Right ventricular systolic pressure is estimated to be 30 mmHg plus the clinically estimated CVP which cannot be estimated on this exam. The left atrial size is normal. Right atrial size is normal. There is no significant valvular heart disease. No overt evidence for endocarditis. The aortic root is normal size. No significant changes since prior study on 02/16/2017. Echocardiogram 02/16/2017 Borderline concentric left ventricular hypertrophy with ejection fraction 60- 65%. Grade I diastolic dysfunction. No valvular abnormality. Comparison is made with the echocardiogram of 11/11/2016, there has been no significant change. . Additional Diagnostics DateTimeAnalyzed 05:22:11 -_ pH ____7.445 - 7.350 7.450 pCO2 ___35.5__ -mmHg 35.0 45.0 pO2 ___86.5__ -mmHg 69.0 116 HCO3- ___24.4__ -mmol/L 22.0 26.0 FIO2 ___21.0__ -% PEEP ____5.0__ -cmH2O AGB 14:32:05 pH_7.378 pCO2_19.1 pO2_94.6 HCO3_11.3 Assessment & Plan Ms. Shania To is a 62 year old lady here due to hepatic encephalopathy, non alcoholic steatoHepatits, Acute renal failure, and Insulin dependent Diabetes mellitus requiring emergent hemo-dialysis and lactulose treatments. She is extubated and tolerating RA and no current sedation medications. Encephalopathy, Present on admission. Active. - Initially Secondary to endstage liver cirrhosis/MOSHER and high ammonia levels. - History of Grade 2 esophageal varicies (August), Portal htn gastropathy. - Ammonia 307 initially. Currently 40. - Lactulose at 200 mg rectally Q4H with rectal balloon 30-[address] mins. [address] tube in place. - Ongoing sedation likely due to decreased renal clearance of propofol and fentanyl. Patient was dialyzed yesterday and will continue dialysis daily until she regains consciousness. Severe Sepsis, not present on admission. Improved. Met SIRS criteria with; Tachycardia, tachypnea and Fever. Lactic acid initially elevated but has now returned to normal levels. - Likely secondary to bacteremia currently being treated with penicillin. - Initial Temp 38.2, HR 107, RR 36. Cr 5.4. - Vitals now within normal limits. - Blood cultures x4: Strep agalactiae - PICC placed in case of need for pressors. Levophed not likely needed as patient will be downgraded to medical floor. Bacteremia, present on admission, Active 11/24 positive blood cultures for Strep agalactiae. - Switched from Ceftriaxone to Penicillin 03/12/17 per ID recommendation. - ID consulted and was following, Melquiades out of town till early march. Ventilator Dependent Respiratory Failure, not present on admission, Resolved. - Patient required intubation for urgent line placement for dialysis. - Previously Sedated on propofol and fentanyl, this was DC on 03/14 the patient has remained partially obtunded since that time. Acute on Chronic Normocytic Anemia, Present on admission. Active. - Hgb 9.5 initially, went down to 6.8, Required 3 units PRBC with improvement to 9.2. Today blood counts remain stable. Source of blood loss currently unknown. - LDH elevated, Haptoglobin decreased. - Continue to monitor and transfuse as needed Acute Renal Failure, Present on admission. Improved - Initially thought to be 2nd to pre-renal azotemia. - Creatinine initially 5.4, today 3.4, baseline 1.3. BUN initially 102, today 24 - Monitor I/O, Maya in place. - Discontinued IV fluids given NS @ 250 ml/hr. - Nephrology consulted, and following - Continue hemodialysis done daily since 03/11/17 Acute Hyperkalemia, Present on admission. Resolved - Secondary to renal failure. EKG reviewed, with no T wave abnormalities. NSR. - Continue hemodilaysis done daily since 03/11/17 Mixed Anion Gap Metabolic Acidosis and alkalosis and Respiratory Alkalosis. Present on admission. Resolved - AG - 22, Delta AG 10, Delta Bicarb 13. calculated PaCO2 24. - ABG as above. no need for repeat ABGs. Grade 1 Diastolic Heart failure, chronic. Present on admission. Active. - With pulmonary hypertension. - Echo 03/12/17 and 02/16 as above. Insulin Using Diabetes Mellitus, Present on admission. Active. HgA1C 5.9 - Decrease home Lantus dose from 50 U daily to 10 units daily. Will take once patient is tolerating by mouth nutrition - Medium dose correctional scale (patient currently only on TPN) Chronic Thrombocytopenia. Present on admission. Active. - Platelet counts remain stable. - Likely Splenic sequestration. - Monitor. Demand Ischemia, with elevated Troponins. Chronic, present on admission. Active. - Elevated tropes - 0.166, with Q6 H trend. No EKG changes. - Previous tropoinins elevated. - Stress test 02/16/17 showed no ischemia. - Echocardiogram repeat on 03/12 shows "Left ventricular wall thickness is borderline increased. The ejection fraction is estimated to be 60-65%. No significant changes since prior study on 02/16/2017." Morbid Obesity. - BMI 41.1 Severe protein nutrition, present on admission, active. - Patient has received nothing by mouth for 5 days - Prealbumin 7 - Patient started on tube feeds today - Continue to monitor nutritional status. - Consider swallow eval the patient is able to follow commands appropriately. Hypertension, chronic. - Continue home meds when appropriate. Subclinical Hypothyroidism,acute on chronic. - Continue home Synthroid. Acetaminophen for mild pain when necessary. Bowel regimen Senna and MiraLAX scheduled and PRN. Zofran when necessary for nausea and vomiting. SubQ heparin held for now. SCDs in place. Disposition: Discharge dependent upon mental status and renal function. 03/16 patient downgraded to medical floor since she is now breathing appropriately and is responding to external stimuli. Will be discharged likely to home when medically stable. VTE Mechanical Devices: Intermittant Pneumatic CD Resuscitation Status: CPR: Attempt Resuscitation Attending Statement The patient was seen and examined together with Dr. Winchester on 03/16/17 and I have added additional information to the note above. Sigifredo Winchester DO Mar 16, 2017 10:12 Mayra Glynn DO Mar 18, 2017 13:03
--- NOTE | 2017-03-16 10:17 | NUR ---
NUTRITION FOLLOW UP: ASSESS: 62 YO F admitted to CCU with hepatic encephalopathy, non alcoholic steatohepatitis, severe sepsis and acute renal failure. She required intubation and initiation of daily dialysis. Pt extubated 03/14 but continues to be somnolent and unable to safely tolerate PO intake. Pt remains NPO X 5 days = inadequate nutrition. Received verbal order during CCU rounds to start TF. Of note, pts wt today is documented as 37.1kg. Per RN, this is wrong and current wt is 104.9kg. PMHx: Hepatitis C, Liver cirrhosis, thrombocytopenia secondary to splenic sequestration, portal HTN, leg edema, ascites, hypervolemic hypotonic hyponatremia, type 2 diabetes ID, GERD, depression, cholecystectomy. DIET: NPO X 5 days. LABS: Reviewed. (03/15) Cr 3.37, Ca 7.9, T.bili 2.1, Alk Phos 188, Alb 2.0, PAB 7 MEDICATIONS: Reviewed. Lactulose GI: 100ml stool output 03/15 via FMS SKIN: No PU per WC ANTHROPOMETRICS: Current Wt: 104.9 kg, BMI: 45.2kg/m2. IBW: 45.5 kg, Adj. BW 59.7 kg. ESTIMATED NEEDS (BMI, RENAL DIALYSIS, ES LIVER DISEASE): Calories: 7532-8122 kcal (30-35 kcal/kg Adj. BW) Protein: 90-110 g/day (1.5-1.8 g/kg Adj. BW) NUTRITION DIAGNOSIS: 1) Increased nutrient needs related to increased demand for nutrients, as evidenced by requirement for renal dialysis, end-stage liver disease.---PERSISTS. 2) Inadequate oral intake related to inability to consume sufficient energy, as evidenced by NPO status.---PERSISTS. INTERVENTION: 1) As pt is extubated, recommend speech therapy evaluation and timely advancement of diet once pt is appropriate. 2) Recommend start enteral nutrition of Nepro starting at 10 ml/hr, once tolerance established, advance 10 ml q 4 hr to goal rate of 52 ml/hr. At goal TF would provide 2060 kcal, 92 g protein; meeting 100% of calorie/protein needs. MONITOR/EVALUATE: NPO status, TF start/clifton, POC, labs, GI/nutrition status. Follow per high nutrition risk guidelines.
--- NOTE | 2017-03-16 13:15 | NUR ---
Dialysis note: 3 1/2 hours tx 3000 ml net UF Right IJ catheter, dsg dry and intact Pls see DTR for VS details Qb 300-400 w/ cath limbs reversed A-V V-A due to freq high art pressure alarms Heparin prime given O2 @ 2L via NC on w/ sat in the 90's Tolerated tx, slept at intervals Catheter flushed, heparin dwelled and secured Stable condition at end of tx Report given to Helen YORK
--- NOTE | 2017-03-16 13:55 | NUR ---
Social Work Note: Initial Assessment/Multidisciplinary Rounds Data& Assessment: EMR reviewed. Pt was discussed in AM rounds today, Per MD Pt was recently extubated and no longer requires the vent. Pt currently receiving daily dialysis. SW met with pt and pt family at bedside with the assistance of the virtual stick interceptor, SW role explained and discharge planning checklist provided. Shania To is a 62 year old female admitted on 03/11/2017 for AMS and ARF. Pt required intubation. Pt lives in [place] with her daughter and is normally independent at baseline with ADL"s with no need for DME. Pt does not have HH or SNF hx. Pt does not have LTC insurance or VA benefits. Pt is not eligible for insurance coverage. SW provided pt family with a financial analysis advisor application. Pt family denies any needs at this time. SW to continue to follow for pt needs, MD orders and capacity for self care. Pt remains medically complex per MD and pt potential discharge needs are unclear at this time. Pt prognosis is evolving. Plan: Pt who is not medically ready for discharge at this time. SW to continue to follow for pt needs, MD orders and pt medical progression. Pt family denies any needs at this time. SW to continue to follow. SUAZNNE García Addendum: 03/16/17 at 1404 by NADIR BEST Amended: Links added.
--- NOTE | 2017-03-16 14:14 | PCM.PNNEPH ---
Subjective Date of Service Mar 16, 2017 Subjective Status post extubation 2 days. Patient remains mostly nonverbal though she is able to follow commands such as opening her mouth and stick out her tongue. She was also track with her eyes. At time of interview receiving hemodialysis, 1.6 L ultrafiltrate yesterday. Remains anuric. Exam Vital Signs Vital Sign - Last Date Time Temp Pulse Resp B/P Pulse Ox O2 Delivery O2 Flow Rate FiO2 03/16/17 12:30 36.6 70 18 122/34 96 Nasal Cannula 2.00 03/14/17 12:00 30 Intake and Output 03/15/17 03/15/17 03/16/17 Cumulative From/Thru 15:00 23:00 07:00 03/11/17 06:07 - 03/16/17 06:24 Intake Total 156 ml 252 ml 24209 ml Output Total 1600 ml 216 ml 8676 ml Balance -1444 ml 36 ml 5000 ml Intake Oral 0 ml IV Total 156 ml 252 ml 05987 ml Packed Cells 961 ml Output Urine Total 0 ml 10 ml 495 ml Stool Total 206 ml 631 ml Gastric Drainage Total 450 ml Ultrafiltrate 1600 ml 7100 ml # Bowel Movements 2 Exam General: Responsive to verbal stimuli, able to follow commands. HEENT: Normocephalic, atraumatic. Pupils equal, round, and reactive to light and accommodation. moist mucosa. Cardiovascular: Regular rate and rhythm with soft systolic murmur heard best at left second intercostal/sternal border Pulmonary: Inspiratory and auditory wheezes, decreased breath sounds and decreased air movement. Normal respiratory effort with no use of accessory muscles. Abdomen: Obese Soft, nontender, nondistended. No fluid wave appreciated no bowel sounds appreciated. Extremities: Bilateral lower extremity edema to upper leg. Upper extremity ecchymosis. Skin: Normal temperature, turgor, and texture, Lab and Diagnostics Result Diagram: 03/16/17 0415 03/15/17 0340 Microbiology Item Value Date Time Adenovirus DNA (PCR) - Final Complete 03/12/17 1234 Nasopharangeal Not Detected Blood Culture Received 03/12/17 0848 Blood Aerobic And Anaerobic Bottle Pending Sputum Quality Screen - Final Resulted 03/11/17 2010 Trachea MRSA (PCR) - Final Complete 03/11/17 1600 Nose Blood Culture - Preliminary Resulted 03/11/17 0703 Blood Aerobic And Anaerobic Bottle Strep Agalactiae - (Group B) Streptococcus pneumoniae Ag Screen - Final Complete 03/11/17 0620 Urine,Random Blood Culture - Preliminary Resulted 03/11/17 0620 Blood Aerobic And Anaerobic Bottle Strep Agalactiae - (Group B) X-Rays, CTs and MRIs PROCEDURE: X-RAY PICC LINE PLACEMENT BY NURSE ([id number]) IMPRESSION: Tip of PICC lies within the atriocaval junction. PROCEDURE: X-RAY CHEST ONE VIEW, PORTABLE ([id number]) IMPRESSION: 1. Pulmonary vascular congestion may reflect fluid overload but etiology is indeterminate. 2. Increased heart size could reflect pericardial effusion. 3. Support tubes in position. PROCEDURE: CT CHEST, ABDOMEN AND PELVIS WITHOUT CONTRAST ([id number]) IMPRESSION: 1. Bilateral lower lobe infiltrates and consolidations consistent with pneumonia. 2. Cirrhotic liver. 3. Splenomegaly and large venous collaterals in upper abdomen consistent with portal hypertension. 4. A small amount of ascites. PROCEDURE: X-RAY CHEST ONE VIEW, PORTABLE ([id number]) IMPRESSION: Interval intubation. Left hemidiaphragm elevation with left basilar atelectasis. X-RAY CHEST ONE VIEW, PORTABLE ([id number]) IMPRESSION: Resolving multifocal pneumonia. Cardiac Echo Impressions 03/12/17 Left ventricular wall thickness is borderline increased. The ejection fraction is estimated to be 60-65%. Left ventricular wall motion is normal. The right ventricle is normal in size and function. Right ventricular systolic pressure is estimated to be 30 mmHg plus the clinically estimated CVP which cannot be estimated on this exam. The left atrial size is normal. Right atrial size is normal. There is no significant valvular heart disease. No overt evidence for endocarditis. The aortic root is normal size. No significant changes since prior study on 02/16/2017. Echocardiogram Interpretation Summary Borderline concentric left ventricular hypertrophy with ejection fraction 60- 65%. Grade I diastolic dysfunction. No valvular abnormality. Comparison is made with the echocardiogram of 11/11/2016, there has been no significant change. Additional Diagnostics DateTimeAnalyzed 05:22:11 -_ pH ____7.445 - 7.350 7.450 pCO2 ___35.5__ -mmHg 35.0 45.0 pO2 ___86.5__ -mmHg 69.0 116 HCO3- ___24.4__ -mmol/L 22.0 26.0 FIO2 ___21.0__ -% PEEP ____5.0__ -cmH2O AGB 14:32:05 pH_7.378 pCO2_19.1 pO2_94.6 HCO3_11.3 Plan Impression 1. Acute kidney injury on chronic kidney disease secondary to ATN in the setting of sepsis. Requiring daily HD since 03/11. 2. Hyperkalemia. Resolved. 3. Anion gap metabolic acidosis. Resolved. 4. Strep agalactiae bacteremia. 5. AMS secondary to hepatic encephalopathy and sepsis. 6. 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 7. Acute respiratory failure due to sepsis. Plan: HD again today 3.5 hr, UF as tolerated. Continue IV abx. Renally dose medications. Avoid nephrotoxins. GAMALIEL OLIVA DO Mar 16, 2017 14:14
--- NOTE | 2017-03-16 17:03 | NUR ---
Evaluation completed. Please go to "Notes" then click on "Assessments and Notes" (bottom left corner of screen). Then select appropriate discipline tab on top of screen.
--- NOTE | 2017-03-16 18:27 | NUR ---
P: Alteration in neuro status I: Pt is more awake and conversing with staff and family. Swallow done and pt was unable to cooperate at the time. Doctor notified and NGT placement attempted by nurse and MD without success. pt has some bloody drainage that she is able to spit out. Pt is in a chair position to assist with secretions. lactulose enema held until pt is able to lay down. O2 4L/NC with sats stable. Pt had HD today and they took of 3Liters. Pt status changed to PCU status. Will dc arterial line soon.Maya patent but had no urine output. Rt PICC patent. Left arterial line patent. FMS minimal output especially with a lactulose supply. Family at bedside and updated on pt's condition and plan of care with dining room coordinator present. E: Stable S: Frequent rounding. Family at bedside.
[2017-03-17] VITALS (9 sets, daily range): BP systolic 108–136; BP diastolic 32–80; PULSE 73–81; RESP 18–25; O2SAT 92–98
[2017-03-17] MEDS: Penicillin G K Inj 3,000,000 UNITS in IV Premix 1 EACH IV SCH ×2 (00:03→09:08)
[2017-03-17] MEDS: Lactulose 20 Gm/30 mL 30 mL Syrup TUBE SCH ×3 (00:26→16:30)
[2017-03-17 05:07] LABS: BASOPHILS % (AUTO) 0.2 % (0-3); EOSINOPHILS % (AUTO) 0.9 % (0-5); MONOCYTES % (AUTO) 7.5 % (4-12); Mean Corpuscular Hemoglobin 29.5 pg (27.0-35.0); Mean Corpuscular Volume 90.3 fL (81-100); NEUTROPHILS % (AUTO) 82.4 % (40-74); Platelet Count 46 bil/L (150-400)
--- NOTE | 2017-03-17 05:10 | NUR ---
oral care pt with a weak cough, oral suction and care down often this shift, two times a large clot was removed from pts mouth, pt on 5L NC, pt opens eyes ot name and able to follow some commands, when family is here pt more apt to follow commands, vieyra with less then 30cc output and FMS with minimal output even with lactulose given, tele SR,
[2017-03-17 05:31] LABS: Magnesium 1.8 mg/dL (1.6-2.6); Phosphorus 4.4 mg/dL (2.5-4.9)
--- NOTE | 2017-03-17 06:30 | NUR ---
oxygen pt coughing up another large blood clot, pts SpO2 low 90 on NC changed to an oxy mask at 10L SpO2 mid 90s. Addendum: 03/17/17 at 0646 by HARRY GARCIA RN pt continuing to desat increased oxygen to 13L oxymask called he said he would consult with the day
[2017-03-17] MEDS: Pantoprazole 4 mg/mL 10 mL Inj IVPUSH SCH ×2 (08:59→16:14)
[2017-03-17] MEDS: Insulin LISPRO 300 Unit/3 mL Inj SUBQ SCH ×2 (09:01→12:58)
[2017-03-17] MEDS: Norepineph 8,000 mCg/250 mL NS 8,000 MCG in IV Premix 1 EACH IV SCH (09:11)
--- NOTE | 2017-03-17 09:19 | DRSVH ---
PROCEDURE: X-RAY CHEST ONE VIEW, PORTABLE ([id number]) INDICATIONS: Possible aspiration TECHNIQUE: One view of the chest was acquired. COMPARISON: [facility], CR, XR PICC LINE PLACE BY NURSE, 03/12/2017, 17:13. [facility], CR, XR CHEST 1VW (PORTABLE), 03/14/2017, 4:57. FINDINGS: Surgical changes and devices: Stable positioning of right IJ CVL. Right PICC present tube tip projec ana over the lower SVC. Cholecystectomy clips. Lungs and pleura: Diffuse, widespread bilateral pulmonary interstitial and air space opacities are p resent increased from prior examination. No pneumothorax. Mediastinum: Mediastinal contours appear normal. Heart size is normal. Bones and chest wall: No suspicious bony lesions. Overlying soft tissues appear unremarkable. IMPRESSION: 1. Interval increase in diffuse bilateral widespread pulmonary opacities consistent with pulmonary ed katharina versus diffuse bilateral pneumonia and/or aspiration. Correlate clinically. Dictated by: Efren White RRA Interpreted: Henry Mansfield MD on 03/17/2017 at 9:12 Approved by: Henry Mansfield M.D. on 03/17/2017 at 9:16
--- NOTE | 2017-03-17 10:16 | NUR ---
NUTRITION FOLLOW UP: ASSESS: 62 YO F admitted to CCU with hepatic encephalopathy, non alcoholic steatohepatitis, severe sepsis and acute renal failure. She required intubation and initiation of daily dialysis. Pt extubated 03/14 but continues to be somnolent and unable to safely tolerate PO intake per ST. Pt remains NPO X 6 days = inadequate nutrition. NGT was unable to be placed 03/16 for TF so pt had PICC placed and TPN is to start. Of note, pts alk phos is elevated prior to TPN start, related to liver disease. PMHx: Hepatitis C, Liver cirrhosis, thrombocytopenia secondary to splenic sequestration, portal HTN, leg edema, ascites, hypervolemic hypotonic hyponatremia, type 2 diabetes ID, GERD, depression, cholecystectomy. DIET: NPO X 6 days. LABS: Reviewed. Na 146, chief console operator 3.01, Glu 140, Ca 8.2, T.bili 1.7, alk phos 185, Alb 2.0 MEDICATIONS: Reviewed. Lactulose GI: 206ml stool output 03/17 via FMS SKIN: No PU per WC ANTHROPOMETRICS: Current Wt: 100.1 kg, BMI: 43.1kg/m2. Admit wt 103kg IBW: 45.5 kg, Adj. BW 59.7 kg. ESTIMATED NEEDS (BMI, RENAL DIALYSIS, ES LIVER DISEASE): Calories: 3116-8876 kcal (30-35 kcal/kg Adj. BW) Protein: 90-110 g/day (1.5-1.8 g/kg Adj. BW) Fluids: ~1500-2000ml/day or per nephrology NUTRITION DIAGNOSIS: 1) Increased nutrient needs related to increased demand for nutrients, as evidenced by requirement for renal dialysis, end-stage liver disease.---PERSISTS. 2) Inadequate oral intake related to inability to consume sufficient energy, as evidenced by NPO status.---PERSISTS. INTERVENTION: 1) Diet advance per ST when appropriate 2) As NGT was unable to be placed, TPN is to start. Recommend start at 155g Dex, 60g AA and 25g lipids to provide 1017kcal and 60g pro (~50% estimated needs) 3) If TPN tolerated and pt continues to have minimal PO intake, recommend advance TPN to goal of 310g Dex, 110g AA and 45g lipids to provide 1945kcal and 110g pro (100% estimated needs) 4) Will adjust TPN daily based on labs and if pt is able to tolerate PO intake. MONITOR/EVALUATE: NPO status, wt, TPN start/clifton, POC, labs, GI/nutrition status. Follow per high nutrition risk guidelines.
[2017-03-17] MEDS ORDERED: TPN Per Pharmacist XX ONE (10:35)
--- NOTE | 2017-03-17 12:12 | PCM.PNMED ---
Subjective Date of Service Mar 17, 2017 Subjective Assessment: Patient is awake, with alertness waxes and wanes. She was able to express that she has pain, but could not point to one specific location. Events Overnight: Overnight she began coughing up blood clots as a result of the attempted placement of the NG tube. This morning she appears stable and has continued to cough, however she has not been coughing up blood. ROS: Complains of shortness of breath, chest pain, diffuse body pain. Denies fever/chills, nausea, abdominal pain. Exam Vital Signs Vital Sign - Last Date Time Temp Pulse Resp B/P Pulse Ox O2 Delivery O2 Flow Rate FiO2 03/17/17 08:57 76 03/17/17 08:19 24 113/32 94 OxyMask 13.00 03/17/17 03:20 37.3 03/14/17 12:00 30 Intake and Output 03/16/17 03/16/17 03/17/17 Cumulative From/Thru 15:00 23:00 07:00 03/11/17 06:07 - 03/17/17 06:13 Intake Total 187 ml 166 ml 82270 ml Output Total 3000 ml 130 ml 65551 ml Balance -3000 ml 187 ml 36 ml 2223 ml Intake Oral 0 ml IV Total 187 ml 166 ml 05109 ml Packed Cells 961 ml Output Urine Total 30 ml 525 ml Stool Total 100 ml 731 ml Gastric Drainage Total 450 ml Ultrafiltrate 3000 ml 07138 ml # Bowel Movements 2 Exam General: Patient arousable with verbal stimuli, alertness waxes and wanes, able to answer questions and follow some commands. no acute distress. HEENT: Normocephalic, atraumatic. Pupils equal, round, and minimally reactive to light and accommodation. Anicteric sclerae. right IJ HD cath placement. Cardiovascular: Tachycardic rate and rhythm with mild systolic murmur, no rubs, or gallops appreciated Pulmonary: Clear to auscultation bilaterally, equal air sounds bilaterally. Abdomen: Bowel tones present. Soft, Obese, scattered bruising, nondistended. Extremities: No clubbing, cyanosis, +3 non pitting edema of the arms and +3 pitting edema of the legs, no lymphadenopathy appreciated. Skin: Normal temperature, turgor, scattered bruising, no rash, ulcers, or subcutaneous nodules appreciated. Neurological: Difficult to assess due to waxing and waning alertness, however, cranial nerves appear grossly intact. Psychiatric: Appears to be in good spirits especially when family is in the room. IVs and Medications IV Fluids Norepinephrine 250 mL Penicillin 50 mL Medications Reviewed: Medications were reviewed in detail Lab and Diagnostics Result Diagram: 03/17/17 0500 03/17/17 0500 Microbiology Item Value Date Time Adenovirus DNA (PCR) - Final Complete 03/12/17 1234 Nasopharangeal Not Detected Blood Culture Received 03/12/17 0848 Blood Aerobic And Anaerobic Bottle Pending Sputum Quality Screen - Final Resulted 03/11/17 2010 Trachea MRSA (PCR) - Final Complete 03/11/17 1600 Nose Blood Culture - Preliminary Resulted 03/11/17 0703 Blood Aerobic And Anaerobic Bottle Strep Agalactiae - (Group B) Streptococcus pneumoniae Ag Screen - Final Complete 03/11/17 0620 Urine,Random Blood Culture - Preliminary Resulted 03/11/17 0620 Blood Aerobic And Anaerobic Bottle Strep Agalactiae - (Group B) X-Rays, CTs and MRIs PROCEDURE: X-RAY PICC LINE PLACEMENT BY NURSE ([id number]) IMPRESSION: Tip of PICC lies within the atriocaval junction. PROCEDURE: X-RAY CHEST ONE VIEW, PORTABLE ([id number]) IMPRESSION: 1. Pulmonary vascular congestion may reflect fluid overload but etiology is indeterminate. 2. Increased heart size could reflect pericardial effusion. 3. Support tubes in position. PROCEDURE: CT CHEST, ABDOMEN AND PELVIS WITHOUT CONTRAST ([id number]) IMPRESSION: 1. Bilateral lower lobe infiltrates and consolidations consistent with pneumonia. 2. Cirrhotic liver. 3. Splenomegaly and large venous collaterals in upper abdomen consistent with portal hypertension. 4. A small amount of ascites. PROCEDURE: X-RAY CHEST ONE VIEW, PORTABLE ([id number]) IMPRESSION: Interval intubation. Left hemidiaphragm elevation with left basilar atelectasis. . Cardiac Echo Impressions Echocardiogram 03/12/17 Left ventricular wall thickness is borderline increased. The ejection fraction is estimated to be 60-65%. Left ventricular wall motion is normal. The right ventricle is normal in size and function. Right ventricular systolic pressure is estimated to be 30 mmHg plus the clinically estimated CVP which cannot be estimated on this exam. The left atrial size is normal. Right atrial size is normal. There is no significant valvular heart disease. No overt evidence for endocarditis. The aortic root is normal size. No significant changes since prior study on 02/16/2017. Echocardiogram 02/16/2017 Borderline concentric left ventricular hypertrophy with ejection fraction 60- 65%. Grade I diastolic dysfunction. No valvular abnormality. Comparison is made with the echocardiogram of 11/11/2016, there has been no significant change. . Additional Diagnostics DateTimeAnalyzed 05:22:11 -_ pH ____7.445 - 7.350 7.450 pCO2 ___35.5__ -mmHg 35.0 45.0 pO2 ___86.5__ -mmHg 69.0 116 HCO3- ___24.4__ -mmol/L 22.0 26.0 FIO2 ___21.0__ -% PEEP ____5.0__ -cmH2O AGB 14:32:05 pH_7.378 pCO2_19.1 pO2_94.6 HCO3_11.3 Assessment & Plan Ms. Shania To is a 62 year old lady here due to hepatic encephalopathy, non alcoholic steatoHepatits, Acute renal failure, and Insulin dependent Diabetes mellitus requiring emergent hemo-dialysis and lactulose treatments. She is extubated and tolerating RA and no current sedation medications. Encephalopathy, Present on admission. Active. - Initially Secondary to endstage liver cirrhosis/MOSHER and high ammonia levels. - History of Grade 2 esophageal varicies (August), Portal htn gastropathy. - Ammonia 307 initially. Repeat ammonia today 38. - Lactulose at 200 mg rectally Q4H with rectal balloon 30-[address] mins. [address] tube in place. - Ongoing sedation likely due to decreased renal clearance of propofol and fentanyl. Patient will continue dialysis daily until fluid status improves. Severe Sepsis, not present on admission. Improved. Met SIRS criteria with; Tachycardia, tachypnea and Fever. Lactic acid initially elevated but has now returned to normal levels. - Likely secondary to bacteremia currently being treated with penicillin. - Initial Temp 38.2, HR 107, RR 36. Cr 5.4. - Vitals now within normal limits. - Blood cultures x4: Strep agalactiae - PICC placed in case of need for pressors. Levophed not likely needed as patient will be downgraded to medical floor. - Repeat blood cultures 2 pending. Post ventilatory respiratory distress, not present on admission, active. - After trial of NG tube placement for enteric feeding, patient began coughing up blood and continued to do so overnight. - Since that time her O2 requirements increased steadily. She is currently on 15 L of oxygen through rebreather mask. - Chest x-ray was obtained 03/17 to rule out pulmonary edema, and/or aspiration pneumonia. X-ray shows "Interval increase in diffuse bilateral widespread pulmonary opacities consistent with pulmonary edema versus diffuse bilateral pneumonia and/or aspiration." - Patient continues to have nonproductive cough, however, no other signs of infection at this time. - If white count begins to climb or patient develops fever/chills consider IV antibiotics with coverage for aspiration at that time. Bacteremia, present on admission, Active 4/4 positive blood cultures for Strep agalactiae. - Switched from Ceftriaxone to Penicillin 03/12/17 per ID recommendation. - ID consulted and will see patientMelquiades out of town till early march. Ventilator Dependent Respiratory Failure, not present on admission, Resolved. - Patient required intubation for urgent line placement for dialysis. - Previously Sedated on propofol and fentanyl, this was DC on 03/14 the patient has remained partially obtunded since that time. Acute on Chronic Normocytic Anemia, Present on admission. Active. - Hgb 9.5 initially, went down to 6.8, Required 3 units PRBC with improvement to 9.2. Today blood counts remain stable at 9.4 despite apparent blood loss from attempted NG tube placement. Other sources of blood loss currently unknown. - LDH is elevated, Haptoglobin decreased. - Continue to monitor Acute Renal Failure, Present on admission. Improved - Initially thought to be 2nd to pre-renal azotemia. - Creatinine initially 5.4, today 3.0, baseline 1.3. BUN initially 102, today 27 - Monitor I/O, Maya in place. - Initially given IV fluids NS @ 250 ml/hr. - Nephrology consulted, recommendations appreciated. - Hemodialysis daily since 03/11/17, continue until fluid status improves. Acute Hyperkalemia, Present on admission. Resolved - Secondary to renal failure. EKG reviewed, with no T wave abnormalities. NSR. - Hemodialysis daily since 03/11/17, continue until fluid status improves. Mixed Anion Gap Metabolic Acidosis and alkalosis and Respiratory Alkalosis. Present on admission. Resolved - AG - 22, Delta AG 10, Delta Bicarb 13. calculated PaCO2 24. - ABG as above. no need for repeat ABGs. Grade 1 Diastolic Heart failure, chronic. Present on admission. Active. - With pulmonary hypertension. - Echo 03/12/17 and 02/16 as above. Insulin Using Diabetes Mellitus, Present on admission. Active. HgA1C 5.9 - Start home Lantus 50 U daily when awake and tolerating PO intake - High dose correctional scale. Chronic Thrombocytopenia. Present on admission. Active. - Platelet counts remain stable. - Likely Splenic sequestration. - Monitor. Demand Ischemia, with elevated Troponins. Chronic, present on admission. Active. - Elevated tropes - 0.166, with Q6 H trend. No EKG changes. - Previous tropoinins elevated. - Stress test 02/16/17 showed no ischemia. - Echocardiogram repeat on 03/12 shows "Left ventricular wall thickness is borderline increased. The ejection fraction is estimated to be 60-65%. No significant changes since prior study on 02/16/2017." Morbid Obesity. - BMI 41.1 Severe protein nutrition, present on admission, active. - Patient has received nothing by mouth for 5 days - Prealbumin 7 - Attempted NG tube placement for feedings yesterday evening, however this was unsuccessful. - TPN will be initiated this evening after dialysis. - Continue to monitor nutritional status. - Consider swallow eval after dialysis this evening, or when the patient is responding more or becomes more lucid. Hypertension, chronic. - Continue home meds when appropriate. Subclinical Hypothyroidism,acute on chronic. - Continue home Synthroid when appropriate. Acetaminophen for mild pain when necessary. Bowel regimen Senna and MiraLAX scheduled and PRN. Zofran when necessary for nausea and vomiting. SubQ heparin held for now. SCDs in place. Disposition: Dependent upon mental status and renal function. 03/16 patient downgraded to medical floor since she is now breathing appropriately and is responding to external stimuli. Will be discharged to likely home when medically stable. VTE Mechanical Devices: Intermittant Pneumatic CD Resuscitation Status: CPR: Attempt Resuscitation Attending Statement The patient was seen and examined together with Dr. Winchester on 03/17/17 and I have added additional information to the note above. Sigifredo Winchester DO Mar 17, 2017 11:54 Mayra Glynn DO Mar 20, 2017 13:40
--- NOTE | 2017-03-17 12:48 | PCM.PHAPRO ---
Progress Altered mental status Assessment & Plan 62 year female with hepatic encephalopathy non alcoholic steatohepatits chronic anemia Acute renal failure requiring daily hemodialysis IDDM Recently extubated to room air Bacteremia with Strep agalactiae Obesity with BMI 41.1 Severe protein nutrition, present on admission, active. I. Volume/HD Off pressors, volume status fluctuation with HD II. Chem Mild hypernatremia p/ Reduced Na in mix III. Glucose IDDM by history, monitor and cover with Regular Insulin IV. Macronutrients Cautious introduction of lipids (MOSHER) and consideration of permissive underfeeding approach. PARENTERAL NUTRITION ORDERS 1 17-Mar-17 Standard Hang Time: 2100 Substrates Total kcal: 767 AMINO ACIDS 60 g DEXTROSE 155 g Total Volume (mL): 1000 LIPIDS g Sterile Water for Injection mL To Infuse Over (hrs): 24 Total Volume 1000 mL At at a rate of (mL/hr): 42 Additives Sodium Chloride 20 mEq "typical" daily requirements Sodium Acetate 10 mEq Sodium 50-120mEq Potassium Chloride 30 mEq Potassium 60-120mEq Potassium Phosphate 5 mEq Phosphate 20-40mEq Calcium Gluconate 9 mEq Magnesium 8-32mEq Magnesium Sulfate 4 mEq Calcium 9-22mEq Acetate* 80-120mEq Chloride* 80-120mEq Regular Insulin units *Depending on acid-base status Famotidine mg Multivitamins 1 std dose Insulin Regimen Trace Elements 1 std dose none Thiamine 100 mg Regular Low Intensity Subcut Folic Acid 1 mg Regular Medium Intensity Subcut Ascorbic Acid 500 mg Regular High Intensity Subcut Regular Insulin Infusion Other: Special Instructions: To be infused via central line only. For delay or inturruption of TPN contact the pharmacist for alternative replacement solution. Signature Date: NILESH SPRINGER 2015 Chao Blanchard S Pharm D Mar 17, 2017 12:48
--- NOTE | 2017-03-17 14:14 | ABG ---
DateTimeAnalyzed 14:06:15 -_ pH ____7.488 - 7.350 7.450 pCO2 ___34.3__ -mmHg 35.0 45.0 pO2 143 -mmHg 69.0 116 HCO3- ___26.1__ -mmol/L 22.0 26.0 ABE ____2.4__ -mmol/L tHb ____9.0__ -g/dL O2Hb ___98.7__ -% COHb ____2.6__ -% 1.5 MetHb ____0.0__ -% FIO2 __100.0__ -% Drawn By as - Date/Time Notified____ 14:14:00 -_ Liter_Flow ___15.00_ -L/min Oxygen Device 1 NON RE-[place]TE - Notified By ams - Notified Whom lawrence kinoshita, RN - K+ ____4.5__ -mmol/L Enio test _Positive -
[2017-03-17] MEDS ORDERED: Piperacillin-Tazo 3.375 Gm Inj 3.375 GM in Dextrose 5% Minibag Plus 50 ML IV SCH (14:45)
--- NOTE | 2017-03-17 15:53 | PCM.PNNEPH ---
Subjective Date of Service Mar 17, 2017 Subjective Overnight: Patient developed hemoptysis most likely secondary to trauma from NG tube placement. O2 saturation levels fell requiring oxygen mask. Status post extubation 3 days. Patient able to answer one-word sentences and follows simple commands. She is able to relate that she is in the hospital though will not/cannot answer which hospital. 30 mL urine output over 24 hour period. Ht received yesterday with 3 L removed Exam Vital Signs Vital Sign - Last Date Time Temp Pulse Resp B/P Pulse Ox O2 Delivery O2 Flow Rate FiO2 03/17/17 12:59 36.9 80 20 128/45 93 OxyMask 14.00 03/14/17 12:00 30 Intake and Output 03/16/17 03/16/17 03/17/17 Cumulative From/Thru 15:00 23:00 07:00 03/11/17 06:07 - 03/17/17 06:13 Intake Total 187 ml 166 ml 49853 ml Output Total 3000 ml 130 ml 55766 ml Balance -3000 ml 187 ml 36 ml 2223 ml Intake Oral 0 ml IV Total 187 ml 166 ml 48923 ml Packed Cells 961 ml Output Urine Total 30 ml 525 ml Stool Total 100 ml 731 ml Gastric Drainage Total 450 ml Ultrafiltrate 3000 ml 76397 ml # Bowel Movements 2 Exam General: Responsive to verbal stimuli, able to follow commands and answer machines appropriately in 1-2 word sentences. HEENT: Normocephalic, atraumatic. Pupils equal, round, and reactive to light and accommodation. moist mucosa, oximeter in place Cardiovascular: Regular rate and rhythm with soft systolic murmur heard best at left second intercostal/sternal border Pulmonary: Inspiratory and auditory wheezes, decreased breath sounds and decreased air movement. Normal respiratory effort with no use of accessory muscles. Abdomen: Obese Soft, nontender, nondistended. No fluid wave appreciated no bowel sounds appreciated. Extremities: Bilateral lower extremity edema to upper leg. Upper extremity ecchymosis. Skin: Normal temperature, turgor, and texture, IVs and Medications Medications Reviewed: Medications were reviewed in detail Lab and Diagnostics Result Diagram: 03/17/17 0500 03/17/17 0500 Microbiology Item Value Date Time Adenovirus DNA (PCR) - Final Complete 03/12/17 1234 Nasopharangeal Not Detected Blood Culture Received 03/12/17 0848 Blood Aerobic And Anaerobic Bottle Pending Sputum Quality Screen - Final Resulted 03/11/172009 Trachea MRSA (PCR) - Final Complete 03/11/17 1600 Nose Blood Culture - Preliminary Resulted 03/11/17 0703 Blood Aerobic And Anaerobic Bottle Strep Agalactiae - (Group B) Streptococcus pneumoniae Ag Screen - Final Complete 03/11/17 0620 Urine,Random Blood Culture - Preliminary Resulted 03/11/17 0620 Blood Aerobic And Anaerobic Bottle Strep Agalactiae - (Group B) X-Rays, CTs and MRIs PROCEDURE: X-RAY PICC LINE PLACEMENT BY NURSE ([id number]) IMPRESSION: Tip of PICC lies within the atriocaval junction. PROCEDURE: X-RAY CHEST ONE VIEW, PORTABLE ([id number]) IMPRESSION: 1. Pulmonary vascular congestion may reflect fluid overload but etiology is indeterminate. 2. Increased heart size could reflect pericardial effusion. 3. Support tubes in position. PROCEDURE: CT CHEST, ABDOMEN AND PELVIS WITHOUT CONTRAST ([id number]) IMPRESSION: 1. Bilateral lower lobe infiltrates and consolidations consistent with pneumonia. 2. Cirrhotic liver. 3. Splenomegaly and large venous collaterals in upper abdomen consistent with portal hypertension. 4. A small amount of ascites. PROCEDURE: X-RAY CHEST ONE VIEW, PORTABLE ([id number]) IMPRESSION: Interval intubation. Left hemidiaphragm elevation with left basilar atelectasis. X-RAY CHEST ONE VIEW, PORTABLE IMPRESSION: 1. Interval increase in diffuse bilateral widespread pulmonary opacities consistent with pulmonary edema versus diffuse bilateral pneumonia and/or aspiration. Correlate clinically. Dictated by: Efren White RRNabeel Interpreted: Henry Mansfield MD on 03/17/2017 at 9 :12 . Cardiac Echo Impressions Echocardiogram 03/12/17 Left ventricular wall thickness is borderline increased. The ejection fraction is estimated to be 60-65%. Left ventricular wall motion is normal. The right ventricle is normal in size and function. Right ventricular systolic pressure is estimated to be 30 mmHg plus the clinically estimated CVP which cannot be estimated on this exam. The left atrial size is normal. Right atrial size is normal. There is no significant valvular heart disease. No overt evidence for endocarditis. The aortic root is normal size. No significant changes since prior study on 02/16/2017. Echocardiogram 02/16/2017 Borderline concentric left ventricular hypertrophy with ejection fraction 60- 65%. Grade I diastolic dysfunction. No valvular abnormality. Comparison is made with the echocardiogram of 11/11/2016, there has been no significant change. . Additional Diagnostics DateTimeAnalyzed 05:22:11 -_ pH ____7.445 - 7.350 7.450 pCO2 ___35.5__ -mmHg 35.0 45.0 pO2 ___86.5__ -mmHg 69.0 116 HCO3- ___24.4__ -mmol/L 22.0 26.0 FIO2 ___21.0__ -% PEEP ____5.0__ -cmH2O AGB 14:32:05 pH_7.378 pCO2_19.1 pO2_94.6 HCO3_11.3 Plan Impression Impression 1. Acute kidney injury on chronic kidney disease secondary to ATN in the setting of sepsis. Requiring daily HD since 03/11. 2. Hyperkalemia. Resolved. 3. Anion gap metabolic acidosis. Resolved. 4. Strep agalactiae bacteremia. 5. AMS secondary to hepatic encephalopathy and sepsis. 6. 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 7. Acute respiratory failure due to sepsis. Plan: Plan: Continue with HD TPN placement, reassess volume status 03/18/2017 Continue IV abx. Renally dose medications. Avoid nephrotoxins. GAMALIEL OLIVA DO Mar 17, 2017 15:53
--- NOTE | 2017-03-17 17:01 | NUR ---
Respiratory pt drowsy and unable to hold attention. pt on oxymask at 13-15L, sating low 90s with dips in to 80s. o2 pleth good. family at bedside, able to get patient to reponse and then falls back to sleep. Medical team informed of situation. ABG drawn, good results. Pt mask changed to NRB at 15L. oxygen probe changed to forehead for increased accuracy. Saturation throughout afternoon improved to 95-97%. pt appeared to resting better. will continue to monitor.
[2017-03-17] MEDS ORDERED: Lactulose 200 GM/Bottle Enema RECTAL ONE (18:40)
[2017-03-18] VITALS (15 sets, daily range): BP systolic 82–152; BP diastolic 38–48; PULSE 65–80; RESP 15–36; O2SAT 90–100
[2017-03-18] MEDS: Lactulose 20 Gm/30 mL 30 mL Syrup TUBE SCH ×3 (00:30→14:58)
[2017-03-18] MEDS: Piperacillin-Tazo 3.375 Gm Inj 3.375 GM in Dextrose 5% Minibag Plus 50 ML IV SCH ×3 (00:55→19:59)
[2017-03-18] MEDS: Insulin Human REGular 300 Unit/3 mL Inj SUBQ SCH ×4 (02:30→20:06)
--- NOTE | 2017-03-18 03:25 | NUR ---
Respiratory/BiPAP During evening assessment and med pass patient noted to be having difficulty maintaining adequate SpO2 despite being on 15L O2 via a non-rebreather mask. Patient's SpO2 84-89% with occasional peaks to 91-92%. Adjusted oxygen equipment and oximetry sensor with no change in readings. Discussed with RT; recommend BiPAP. Page to Dr. House with nursing concerns and RT recommendation. Patient placed on BiPAP at 60% FiO2, with SpO2 improved to 97-98%. Patient making frequent attempts to remove the BiPAP mask. Over the course of the night patient's SpO2 continues to drop despite BiPAP; FiO2 currently at 80%, SpO2 94%. Frequent safety checks.
[2017-03-18 04:24] LABS: BASOPHILS % (AUTO) 0.1 % (0-3); EOSINOPHILS % (AUTO) 0.3 % (0-5); MONOCYTES % (AUTO) 3.6 % (4-12); Mean Corpuscular Hemoglobin 29.3 pg (27.0-35.0); Mean Corpuscular Volume 90.2 fL (81-100); NEUTROPHILS % (AUTO) 89.6 % (40-74); Platelet Count 51 bil/L (150-400)
[2017-03-18 04:51] LABS: Magnesium 2.1 mg/dL (1.6-2.6); Phosphorus 4.9 mg/dL (2.5-4.9)
--- NOTE | 2017-03-18 07:01 | ABG ---
DateTimeAnalyzed 06:55:00 -_ pH ____7.418 - 7.350 7.450 pCO2 ___39.6__ -mmHg 35.0 45.0 pO2 ___52.8__ -mmHg 69.0 116 HCO3- ___25.1__ -mmol/L 22.0 26.0 ABE ____1.1__ -mmol/L -2.0 2.0 tHb ____9.1__ -g/dL O2Hb ___84.6__ -% COHb ____2.1__ -% MetHb ____0.5__ -% sO2 ___86.9__ -% FIO2 __100.0__ -% CPAP ___15.0__ -cmH2O PEEP ____8.0__ -cmH2O Drawn By as - Date/Time Notified____ 07:01:00 -_ Spontaneous_RR ___30.0__ -b/min Oxygen Device 1 ____BIPAP - Notified By ams - Notified Whom _dr field - B 761 -mmHg tO2 ___10.9__ -Vol% Enio test _Positive -
[2017-03-18] MEDS ORDERED: Insulin GLARgine 100 Unit/mL Syringe SUBQ ONE (07:35)
[2017-03-18] MEDS: Pantoprazole 4 mg/mL 10 mL Inj IVPUSH SCH ×2 (08:14→15:50)
[2017-03-18] MEDS ORDERED: Total Parenteral Nutrition 1 BAG IV SCH (08:30)
[2017-03-18] MEDS ORDERED: Propofol 10,000 mCg/mL 100 mL Inj ONE (08:32)
--- NOTE | 2017-03-18 08:41 | DRSVH ---
PROCEDURE: X-RAY CHEST ONE VIEW, PORTABLE ([id number]) INDICATIONS: post intubation TECHNIQUE: One view of the chest was acquired. COMPARISON: [facility], CR, XR CHEST 1VW (PORTABLE), 03/14/2017, 4:57. [facility], CR, XR CHEST 1VW (PORTABLE), 03/17/2017, 7:48. FINDINGS: Surgical changes and devices: There is a new endotracheal tube with the tip approximately 2.7 cm from the silvano. A right internal jugular catheter is present with the tip projecting over the superior vena cava. Lungs and pleura: No definite pleural effusions or pneumothorax. There are confluent diffuse bilate ral airspace opacities which appear progressively increased compared to the prior studies. Mediastinum: Mediastinal contours appear unchanged. Heart size is mildly enlarged. Bones and chest wall: No suspicious bony lesions. Overlying soft tissues appear unremarkable. IMPRESSION: 1. Endotracheal tube tip approximately 2.7 cm from the silvano. Recommend withdrawal by approximately 1 cm. 2. Progressive increase in confluent diffuse bilateral airspace opacities. Findings may reflect inc reased pulmonary edema/ARDS, pneumonia, or hemorrhage. Dictated by: Kumar Xie M.D. on 03/18/2017 at 8:35 Approved by: Kumar Xie M.D. on 03/18/2017 at 8:40
--- NOTE | 2017-03-18 08:47 | PROCED ---
[address] [address] PROCEDURE NOTE PATIENT: NILESH SPRINGER : 1955 MR#: [id number] ADMIT: 03/11/2017 JOB ID: [id number] INTUBATION PROCEDURE NOTE: DATE OF SERVICE: 03/18/2017 PREOPERATIVE DIAGNOSIS(ES): Respiratory Failure POSTOPERATIVE DIAGNOSIS(ES): Respiratory Failure SURGEON: Slava Scales MD I was asked by Dr. Han to intubate the patient. Upon entering the room she is somnolent. Oxygen saturations on BiPAP at 100% oxygen were between 88 and 89%. Recent arterial blood gas demonstrated a PO2 of 53 decreased over the last couple of days. The patient was given 10 mg of etomidate, 50 mg of rocuronium. The BiPAP machine was not sufficient to ventilate the patient as her sats fell to 76% in seconds. The BiPAP was removed. The patient was manually ventilated with an Ambu bag and an oral airway increasing her sats to the original 88%. The patient was intubated with a #3 Glidescope and a 7.5 endotracheal tube. Although the intubation took less than 10 seconds, the patient's oxygen saturation fell to 72%. CO2 was confirmed. The patient's oxygen saturation was quickly brought back up to 88% and chest x-ray was ordered, and she was placed on the ventilator. [facility] CENTERJos[facility] Luis
[2017-03-18] MEDS ORDERED: fentaNYL 2,500 mCg/250 mL Premix IV ONE (09:43)
--- NOTE | 2017-03-18 10:48 | NUR ---
NUTRITION FOLLOW UP: ASSESS: 62 YO F admitted to CCU with hepatic encephalopathy, non alcoholic steatohepatitis, severe sepsis and acute renal failure. She required intubation and initiation of daily dialysis. Pt extubated 03/14 but required re-intubation 03/18. Pt remains NPO. NGT was unable to be placed 03/16 for TF so pt had PICC placed and TPN was started 03/17. TPN provides a total of 1000ml [id number]. Pt is have dialysis today. Palliative care is following. PMHx: Hepatitis C, Liver cirrhosis, thrombocytopenia secondary to splenic sequestration, portal HTN, leg edema, ascites, hypervolemic hypotonic hyponatremia, type 2 diabetes ID, GERD, depression, cholecystectomy. DIET: NPO X 7 days. LABS: Reviewed. 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 Lactulose, fentanyl GI: 100ml stool output 03/17 via FMS SKIN: No PU per WC ANTHROPOMETRICS: Current Wt: 101.1 kg, BMI: 43.5kg/m2. Admit wt 103kg IBW: 45.5 kg, Adj. BW 59.7 kg. ESTIMATED NEEDS (BMI, RENAL DIALYSIS, ES LIVER DISEASE,VENT): Calories: 2735-4357 kcal (30-35 kcal/kg Adj. BW) Protein: 90-110 g/day (1.5-1.8 g/kg Adj. BW) Fluids: ~1500-2000ml/day or per nephrology NUTRITION DIAGNOSIS: 1) Increased nutrient needs related to increased demand for nutrients, as evidenced by requirement for renal dialysis, end-stage liver disease.---PERSISTS. 2) Inadequate oral intake related to inability to consume sufficient energy, as evidenced by NPO status.---PERSISTS. INTERVENTION: 1) Will slightly adjust TPN today. Will keep Lipids low due to pt's history of liver disease. Recommend 145g Dex, 70g AA and 10g lipids to provide 873kcal and 70g pro (45% kcal and 63% pro needs) Will monitor labs closely, possible need to decrease lipids 2) Will monitor for possible propofol start as pt is currently intubated. If propofol is started, recommend remove lipids from TPN. MONITOR/EVALUATE: NPO status, wt, TPN [place], POC, labs, GI/nutrition status. Follow per high nutrition risk guidelines.
--- NOTE | 2017-03-18 11:23 | ABG ---
DateTimeAnalyzed 11:14:21 -_ pH ____7.440 - 7.350 7.450 pCO2 ___40.2__ -mmHg 35.0 45.0 pO2 ___87.0__ -mmHg 69.0 116 HCO3- ___27.3__ -mmol/L 22.0 26.0 ABE ____2.9__ -mmol/L tHb ____8.6__ -g/dL O2Hb ___98.0__ -% COHb ____2.4__ -% 1.5 MetHb ____0.0__ -% sO2 ___98.9__ -% FIO2 ___80.0__ -% PEEP ___10.0__ -cmH2O Set_RR 15 -b/min Vt __400.0__ -L Drawn By as - Date/Time Notified____ 11:22:00 -_ Spontaneous_RR 15 -b/min Oxygen Device 1 VENTILATOR - Notified By ams - Notified Whom dr kendregan - K+ ____4.4__ -mmol/L tO2 ___11.8__ -Vol% OrderingPhysicianInitials bak - Enio test _Positive -
[2017-03-18] MEDS ORDERED: Norepinephrine 8,000 mCg/250 mL NS Premix IV ONE (14:19)
[2017-03-18] MEDS ORDERED: Albumin 25% 50 ML IV ONE ×2 (14:24→14:41)
[2017-03-18] MEDS ORDERED: Albumin 25% 100 ML IV ONE (14:42)
--- NOTE | 2017-03-18 14:54 | PCM.PNNEPH ---
GAMALIEL HERNANDEZ DO 03/18/17 1454: Subjective Date of Service Mar 18, 2017 Subjective Overnight: Oxygen saturation levels continued to drop despite high flow O2 NRB at 15 L. Patient placed on BiPAP with initial improvement and then a continuation in decrease in oxygenation. Patient required intubation early this morning. Today: Patient intubated with minimal sedation requiring no blood pressure support. Patient did not receive hemodialysis yesterday, creatinine spike to 5 from 3. White count improved calcitonin now trending up. Ammonia remained stable. Exam Vital Signs Vital Sign - Last Date Time Temp Pulse Resp B/P Pulse Ox O2 Delivery O2 Flow Rate FiO2 03/18/17 14:22 62 82/41 99 100 03/18/17 12:00 36.9 16 Mechanical Ventilator 03/17/17 20:26 15.00 Intake and Output 03/17/17 03/17/17 03/18/17 Cumulative From/Thru 15:00 23:00 07:00 03/11/17 06:07 - 03/18/17 06:42 Intake Total 139 ml 200 ml 71222 ml Output Total 10 ml 0 ml 18901 ml Balance 129 ml 200 ml 2552 ml Intake Oral 0 ml 0 ml 0 ml IV Total 139 ml 163 ml 52260 ml TPN/PPN 37 ml 37 ml Packed Cells 961 ml Output Urine Total 10 ml 0 ml 535 ml Stool Total 731 ml Gastric Drainage Total 450 ml Ultrafiltrate 90297 ml # Bowel Movements 2 Exam General:NIntubated with minimal sedation. Intermittently responsive to verbal stimuli, responsive to painful stimuli HEENT: Normocephalic, atraumatic. ET tube in place Neck: No jugular venous distension. Cardiovascular: Regular rate and rhythm soft systolic murmur heard best at left second intercostal/sternal border, difficult to appreciate secondary to ambient noise Pulmonary: Good air movement with inspiratory and auditory wheezes, difficult to appreciate secondary to ventilator noise Abdomen: Palpation 4 quadrants no rigidity Extremities: Lower extremity edema to pretibial area, upper extremity ecchymosis Skin: Normal temperature, turgor, and texture IVs and Medications Medications Reviewed: Medications were reviewed in detail Lab and Diagnostics Result Diagram: 03/18/17 7780 03/18/17 0410 Microbiology Item Value Date Time Adenovirus DNA (PCR) - Final Complete 03/12/17 1234 Nasopharangeal Not Detected Blood Culture Received 03/12/17 0848 Blood Aerobic And Anaerobic Bottle Pending Sputum Quality Screen - Final Resulted 03/11/17 2010 Trachea MRSA (PCR) - Final Complete 03/11/17 1600 Nose Blood Culture - Preliminary Resulted 03/11/17 0703 Blood Aerobic And Anaerobic Bottle Strep Agalactiae - (Group B) Streptococcus pneumoniae Ag Screen - Final Complete 03/11/17 0620 Urine,Random Blood Culture - Preliminary Resulted 03/11/17 0620 Blood Aerobic And Anaerobic Bottle Strep Agalactiae - (Group B) X-Rays, CTs and MRIs PROCEDURE: X-RAY PICC LINE PLACEMENT BY NURSE ([id number]) IMPRESSION: Tip of PICC lies within the atriocaval junction. PROCEDURE: X-RAY CHEST ONE VIEW, PORTABLE ([id number]) IMPRESSION: 1. Pulmonary vascular congestion may reflect fluid overload but etiology is indeterminate. 2. Increased heart size could reflect pericardial effusion. 3. Support tubes in position. PROCEDURE: CT CHEST, ABDOMEN AND PELVIS WITHOUT CONTRAST ([id number]) IMPRESSION: 1. Bilateral lower lobe infiltrates and consolidations consistent with pneumonia. 2. Cirrhotic liver. 3. Splenomegaly and large venous collaterals in upper abdomen consistent with portal hypertension. 4. A small amount of ascites. PROCEDURE: X-RAY CHEST ONE VIEW, PORTABLE ([id number]) IMPRESSION: Interval intubation. Left hemidiaphragm elevation with left basilar atelectasis. X-RAY CHEST ONE VIEW, PORTABLE IMPRESSION: 1. Interval increase in diffuse bilateral widespread pulmonary opacities consistent with pulmonary edema versus diffuse bilateral pneumonia and/or aspiration. Correlate clinically. Dictated by: Efren White RRA Interpreted: Henry Mansfield MD on 03/17/2017 at 9 :12 . X-RAY CHEST ONE VIEW, PORTABLE IMPRESSION: 1. Endotracheal tube tip approximately 2.7 cm from the silvano. Recommend withdrawal by approximately 1 cm. 2. Progressive increase in confluent diffuse bilateral airspace opacities. Findings may reflect increased pulmonary edema/ARDS, pneumonia, or hemorrhage. Dictated by: Kumar Xie M.D. on 03/18/2017 at 8:35 Cardiac Echo Impressions Echocardiogram 03/12/17 Left ventricular wall thickness is borderline increased. The ejection fraction is estimated to be 60-65%. Left ventricular wall motion is normal. The right ventricle is normal in size and function. Right ventricular systolic pressure is estimated to be 30 mmHg plus the clinically estimated CVP which cannot be estimated on this exam. The left atrial size is normal. Right atrial size is normal. There is no significant valvular heart disease. No overt evidence for endocarditis. The aortic root is normal size. No significant changes since prior study on 02/16/2017. Echocardiogram 02/16/2017 Borderline concentric left ventricular hypertrophy with ejection fraction 60- 65%. Grade I diastolic dysfunction. No valvular abnormality. Comparison is made with the echocardiogram of 11/11/2016, there has been no significant change. . Additional Diagnostics DateTimeAnalyzed 05:22:11 -_ pH ____7.445 - 7.350 7.450 pCO2 ___35.5__ -mmHg 35.0 45.0 pO2 ___86.5__ -mmHg 69.0 116 HCO3- ___24.4__ -mmol/L 22.0 26.0 FIO2 ___21.0__ -% PEEP ____5.0__ -cmH2O AGB 14:32:05 pH_7.378 pCO2_19.1 pO2_94.6 HCO3_11.3 Plan Impression 1. Acute kidney injury on chronic kidney disease secondary to ATN in the setting of sepsis. Requiring daily HD since 03/11, dialysis not received 2016 2. Acute hypoxic respiratory failure, most likely secondary to hemorrhage and aspiration, ongoing 3. Hyperkalemia. Resolved. 4. Anion gap metabolic acidosis. Resolved. 5. Strep agalactiae bacteremia, improving 6. AMS secondary to hepatic encephalopathy and sepsis. 7. 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 Plan: Continue with HD, 3L to be taken off today 03/18/2017 Continue IV abx, broaden coverage for aspiration pneumonia Renally dose medications. Avoid nephrotoxins Teresita Kamara MD 03/18/17 1754: Exam Lab and Diagnostics Result Diagram: 03/18/1740903/18/17409 Plan Impression Patient was seen and examined. Agreed with Dr. Hernandez' assessment and plan. Plan to continue daily HD. Will reassess volume status on the daily basis. Joe Hannah MD. GAMALIEL HERNANDEZ DO Mar 18, 2017 14:54 Teresita Kamara MD Mar 18, 2017 17:54
[2017-03-18] MEDS: fentaNYL 2,500 mCg/250 mL 2,500 MCG in IV Premix 1 EACH IV SCH (14:57)
--- NOTE | 2017-03-18 14:57 | DRSVH ---
PROCEDURE: X-RAY CHEST ONE VIEW, PORTABLE ([id number]) INDICATIONS: SHORTNESS OF BREATH TECHNIQUE: One view of the chest was acquired. COMPARISON: [facility], CR, XR CHEST 1VW (PORTABLE), 03/17/2017, 7:48. [facility], CR, XR CHEST 1VW (PORTABLE), 03/18/2017, 8:12. FINDINGS: Surgical changes and devices: Endotracheal tube is unchanged in position with the tip approximately 2 .5 cm from the silvano. Right upper extremity PICC line is demonstrated with the tip at the cavoatria l junction. There is a right internal jugular catheter with the tip in the superior vena cava again noted Lungs and pleura: No definite pneumothorax or pleural effusions. There are progressively increased diffuse confluent airspace opacities bilaterally. There are areas of developing consolidation in the left lung base. Mediastinum: Mediastinal contours appear unchanged. Heart size is enlarged. Bones and chest wall: No suspicious bony lesions. Overlying soft tissues appear unremarkable. IMPRESSION: 1. Endotracheal tube tip approximately 2.5 cm from the silvano. Recommend withdrawal by approximatel y 1 cm. 2. Progressive increase in diffuse bilateral airspace opacities likely representing pulmonary edema/ ARDS or pneumonia. Dictated by: Kumar Xie M.D. on 03/18/2017 at 14:50 Approved by: Kumar Xie M.D. on 03/18/2017 at 14:56
--- NOTE | 2017-03-18 15:44 | NUR ---
spiritual care: nurse referral emotional support to large family as they gather and in pairs, visit room, coping, grieving in waiting area.
--- NOTE | 2017-03-18 16:06 | CONS ---
[address] [address] CONSULTATION REPORT PATIENT: NILESH SPRINGER : 1955 MR#: [id number] ADMIT: 03/11/2017 JOB ID: [id number] DATE OF SERVICE: 03/18/2017 EMERGENT PULMONARY CONSULTATION: REASON FOR CONSULTATION: Hypoxemic respiratory failure. HISTORY OF PRESENT ILLNESS: A 62-year-old female admitted March 11, 2017 for cirrhosis due to MOSHER, acute renal failure, and severe metabolic acidosis. She was eventually intubated, requiring intubation and mechanical ventilation for procedures and dialysis, and extubated 4 days ago. She did well for the ensuing 2 days; however, yesterday noted to be a bit more lethargic. Today is minimally responsive. O2 saturations on BPAP 88-89. If the mask is removed for even the shortest period of time O2 saturation drops to 83%, sometimes on one occasion 78%. Given her very fragile status, anesthesia was called regarding intubation given that her O2 desaturations have been rapid, with marked deterioration. Intubation was accomplished with only a few seconds to place the tube, but O2 sats dropped to 78% in spite of excellent management of the airway. Blood pressure at that time was 140/42, O2 sat running about 99, initially 90 immediately after intubation but slowly increasing. FiO2 on 100% PEEP of 10. Respiratory rate was 36 prior to intubation and 16 after intubation. Pulse 70-86. Temperature 37.1. Urine output 10 mL. PHYSICAL EXAMINATION: Head: Normocephalic. Eyes: Conjunctivae pink almost to the point of slight erythema. No scleral icterus. Pupils about 3 mm. Nose and throat could not be examined. Chest: Fair breath sounds bilaterally. Coarse crackles throughout both lung perales, maybe more so on the left than the right. Heart: Regular rhythm. Heart tones seem normal. Abdomen: Soft, quiet. Extremities: Anasarca. Skin: No breakdown. After intubation, mouth suctioned of some bloody secretions with few clots. Post-intubation chest x-ray shows diffuse alveolar type infiltrate throughout both lung perales. Endotracheal tube is in good position 2-3 cm above the main silvano. LABORATORY DATA: Showed a white count of 15,200, hemoglobin 9.3, platelet count 51,000. Sodium 144, potassium 4.5, chloride 104, CO2 of 25, BUN 50, creatinine 4.97. Calcium 8.3 with an albumin of 2. Phosphorous 4.9, magnesium 2.1, total bilirubin 2, AST 67, ALT 22, alkaline phosphatase 203. Ammonia level yesterday was 38, down from a peak of 307 on admission. ASSESSMENT: 1. Respiratory failure: Pulmonary edema pattern. Looks alveolar. May be due to total body fluid overload, aspiration of bloody secretions, or sepsis. She has had a wide pulse pressure her entire hospitalization. Has been on antibiotics for a Strep agalactiae bacteremia. Dialysis is planned today. 2. Renal failure: The patient is receiving daily dialysis. Nephrology opinion is that the patient will require lifelong dialysis. 3. Cirrhosis secondary to nonalcoholic steatohepatitis (MOSHER): The patient has hepatic encephalopathy. Has apparently had episodes of variceal bleeding in the past. Came in with encephalopathy due to not taking her lactulose, possibly other etiologies including her bacteremia. In any case, the question is what can be done for the liver and what is the prognosis. The patient is now reintubated after 4 days, the whole time being in the ICU related to fluid problems that emanate from both her hepatic and renal failure. The patient remained stable on the current vent settings; however, just as dialysis was started this afternoon I was called emergently because of O2 saturation of 83 with a blood pressure of 76/34. She was fighting the ventilator. Multiple changes made and started on IMV as in the past she has wanted large tidal volumes. Seemed to do a little better with that. In addition she was given 50 g of albumin and started on a norepi infusion currently running at 0.07 mcg/kg per minute with improvement in her blood pressure to about 126/45. Dialysis was resumed. After about an hour we have 531 mL of fluid removed. Flow volume loop showed that there was significant patient:ventilator dyssynchrony. At times not receiving her volume due to stiffness of the lung, probably due to active exhalation. Other times large lung volumes. At other times some collapse of the airway as the patient was probably breathing in as the ventilator was pushing air in. With vent changes, mode changed to SMV with pressure support of 15, FiO2 of 100%, O2 sat slowly jessica from 83% to 99%-100%. During this time dialysis was withheld. As we stabilized the patient, dialysis was resumed. Apparently the patient puts out no urine and without the dialysis we would not be able to remove any fluid from her already oversaturated lungs. PLAN: 1. Norepinephrine infusion. 2. Albumin IV. Received 50 g. 3. Vent change to start SIMV, PEEP of 10, tidal volume of 600, rate of 15, pressure support of 15. 4. Continue fentanyl. 5. May have to institute paralysis, which would entail using propofol or benzodiazepines. Would prefer to avoid this, especially given her hepatorenal failure. Seems to be settling down somewhat. Will see how we do. TIME: Time spent so far was 80 minutes this morning and 75 minutes this afternoon.
--- NOTE | 2017-03-18 17:23 | PCM.PNMED ---
Subjective Date of Service Mar 18, 2017 Subjective Assessment: Patient intubated this morning, somnolent but responding to verbal stimuli, unable to follow commands appropriately. Events Overnight: Overnight patient continued to desaturate even on 15 L of oxygen. An ABG was run which showed her PO2 at 143 and showed minimal evidence of respiratory alkalosis. She was subsequently placed on BiPAP which was run at 100%. Even with this intervention she continued to desaturate. An ABG was run this morning which showed her PO2 at 52. Due to her rapid desaturation off BiPAP Dr. Chandra notified the anesthesiologist distribution collection operator who came to perform intubation. Intubation was successful, and the patient was stabilized at that point. Family was notified of her change in status and a meeting was called to discuss treatment going forward. As patient was receiving dialysis later this evening she began to desaturate further requiring propofol and increased fentanyl due to increased ventilator dyssynchrony. Blood pressure came unstable at this point and nicardipine is given to further stabilize the patient. ROS: Due to the patient being intubated, a review of systems was unable to be obtained. Exam Vital Signs Vital Sign - Last Date Time Temp Pulse Resp B/P Pulse Ox O2 Delivery O2 Flow Rate FiO2 03/18/17 14:40 66 101/38 95 100 03/18/17 14:00 37.0 18 03/18/17 12:00 Mechanical Ventilator 03/17/17 20:26 15.00 Intake and Output 03/17/17 03/17/17 03/18/17 Cumulative From/Thru 15:00 23:00 07:00 03/11/17 06:07 - 03/18/17 06:42 Intake Total 139 ml 200 ml 55507 ml Output Total 10 ml 0 ml 76265 ml Balance 129 ml 200 ml 2552 ml Intake Oral 0 ml 0 ml 0 ml IV Total 139 ml 163 ml 59781 ml TPN/PPN 37 ml 37 ml Packed Cells 961 ml Output Urine Total 10 ml 0 ml 535 ml Stool Total 731 ml Gastric Drainage Total 450 ml Ultrafiltrate 26625 ml # Bowel Movements 2 Exam General: Patient is somnolent, however, arousable with verbal stimuli, alertness waxes and wanes, unable follow commands. HEENT: Normocephalic, atraumatic. Pupils equal, round, and minimally reactive to light and accommodation. Anicteric sclerae. right IJ HD cath placement. Cardiovascular: Tachycardic rate and rhythm with minor systolic murmur, no rubs , or gallops appreciated Pulmonary: Clear to auscultation bilaterally, equal air sounds bilaterally. Abdomen: Bowel tones present. Soft, Obese, scattered bruising, nondistended. Extremities: No clubbing, cyanosis, severe pitting edema of the arms and legs, no lymphadenopathy appreciated. Skin: Normal temperature, turgor, scattered bruising of the upper arms, no ulcers, or subcutaneous nodules appreciated. Neurological: Unable to assess due to somnolence status Psychiatric: Unable to assess due to intubation status IVs and Medications IV Fluids 350 mL NS delivered IV medication Medications Reviewed: Medications were reviewed in detail Medications High-risk medications include: Fentanyl Nicardipine gtt Lab and Diagnostics Item Value Date Time Lymphocytes (%) (Auto) 11.0 % L 03/16/17414 Neutrophils (%) (Auto) 78.0 % H 03/16/17 041 Red Cell Distribution Width 15.6 % H 03/16/17 041 Mean Corpuscular Volume 89.4 fL 03/16/17 041 Mean Corpuscular Hemoglobin 29.6 pg 03/16/17414 Mean Corpuscular Hemoglobin Concent 33.1 % 03/16/17 041 Procalcitonin 13.59 ng/mL H 03/16/17 0415 Prealbumin 7 mg/dL L 03/15/17 0340 Albumin 2.0 g/dL L 03/15/17 0340 Total Protein 4.4 g/dL L 03/15/17 0340 Alkaline Phosphatase 188 U/L H 03/15/17 0340 Alanine Aminotransferase (ALT/SGPT) 24 U/L 03/15/17 0340 Aspartate Amino Transf (AST/SGOT) 42 U/L 03/15/17 0340 Total Bilirubin 2.1 mg/dL H 03/15/17 0340 Magnesium Level 2.1 mg/dL 03/15/17 0340 Calcium Level 7.9 mg/dL L 03/15/17 0340 Estimat Glomerular Filtration Rate 20 mL/min 03/15/17 0340 Result Diagram: 03/18/17 0410 03/18/17 041 Microbiology Item Value Date Time Adenovirus DNA (PCR) - Final Complete 03/12/17 1234 Nasopharangeal Not Detected Blood Culture Received 03/12/17 0848 Blood Aerobic And Anaerobic Bottle Pending Sputum Quality Screen - Final Resulted 03/11/17 2010 Trachea MRSA (PCR) - Final Complete 03/11/17 1600 Nose Blood Culture - Preliminary Resulted 03/11/17 0703 Blood Aerobic And Anaerobic Bottle Strep Agalactiae - (Group B) Streptococcus pneumoniae Ag Screen - Final Complete 03/11/17 0620 Urine,Random Blood Culture - Preliminary Resulted 03/11/17 0620 Blood Aerobic And Anaerobic Bottle Strep Agalactiae - (Group B) X-Rays, CTs and MRIs PROCEDURE: X-RAY PICC LINE PLACEMENT BY NURSE ([id number]) IMPRESSION: Tip of PICC lies within the atriocaval junction. PROCEDURE: X-RAY CHEST ONE VIEW, PORTABLE ([id number]) IMPRESSION: 1. Pulmonary vascular congestion may reflect fluid overload but etiology is indeterminate. 2. Increased heart size could reflect pericardial effusion. 3. Support tubes in position. PROCEDURE: CT CHEST, ABDOMEN AND PELVIS WITHOUT CONTRAST ([id number]) IMPRESSION: 1. Bilateral lower lobe infiltrates and consolidations consistent with pneumonia. 2. Cirrhotic liver. 3. Splenomegaly and large venous collaterals in upper abdomen consistent with portal hypertension. 4. A small amount of ascites. PROCEDURE: X-RAY CHEST ONE VIEW, PORTABLE ([id number]) IMPRESSION: Interval intubation. Left hemidiaphragm elevation with left basilar atelectasis. X-RAY CHEST ONE VIEW, PORTABLE IMPRESSION: 1. Interval increase in diffuse bilateral widespread pulmonary opacities consistent with pulmonary edema versus diffuse bilateral pneumonia and/or aspiration. Correlate clinically. Dictated by: Efren White [facility] Interpreted: Henry Mansfield MD on 03/17/2017 at 9 :12 . X-RAY CHEST ONE VIEW, PORTABLE IMPRESSION: 1. Endotracheal tube tip approximately 2.7 cm from the silvano. Recommend withdrawal by approximately 1 cm. 2. Progressive increase in confluent diffuse bilateral airspace opacities. Findings may reflect increased pulmonary edema/ARDS, pneumonia, or hemorrhage. Dictated by: Kumar Xie M.D. on 03/18/2017 at 8:35 Cardiac Echo Impressions Echocardiogram 03/12/17 Left ventricular wall thickness is borderline increased. The ejection fraction is estimated to be 60-65%. Left ventricular wall motion is normal. The right ventricle is normal in size and function. Right ventricular systolic pressure is estimated to be 30 mmHg plus the clinically estimated CVP which cannot be estimated on this exam. The left atrial size is normal. Right atrial size is normal. There is no significant valvular heart disease. No overt evidence for endocarditis. The aortic root is normal size. No significant changes since prior study on 02/16/2017. Echocardiogram 02/16/2017 Borderline concentric left ventricular hypertrophy with ejection fraction 60- 65%. Grade I diastolic dysfunction. No valvular abnormality. Comparison is made with the echocardiogram of 11/11/2016, there has been no significant change. . Additional Diagnostics DateTimeAnalyzed 05:22:11 -_ pH ____7.445 - 7.350 7.450 pCO2 ___35.5__ -mmHg 35.0 45.0 pO2 ___86.5__ -mmHg 69.0 116 HCO3- ___24.4__ -mmol/L 22.0 26.0 FIO2 ___21.0__ -% PEEP ____5.0__ -cmH2O AGB 14:32:05 pH_7.378 pCO2_19.1 pO2_94.6 HCO3_11.3 Assessment & Plan Ms. Shania To is a 62 year old lady here due to hepatic encephalopathy, non alcoholic steatoHepatits, Acute renal failure, and Insulin dependent Diabetes mellitus requiring emergent hemo-dialysis and lactulose treatments. Encephalopathy, Present on admission. Active. - Initially Secondary to endstage liver cirrhosis/MOSHER and high ammonia levels. - History of Grade 2 esophageal varicies (August), Portal htn gastropathy. - Ammonia 307 initially. Currently 45. - Lactulose at 200 mg rectally Q4H with rectal balloon 30-[address] mins. [address] tube in place. - Ongoing sedation likely due to decreased renal clearance of propofol and fentanyl. - Patient has been receiving daily dialysis and should continue dialysis until her fluid status improves. Severe Sepsis, not present on admission. Improved. Initially Met SIRS criteria with; Tachycardia, tachypnea and Fever. Lactic acid initially elevated returned to normal levels. - Likely secondary to bacteremia currently being treated with IV Zosyn. - Initial Temp 38.2, HR 107, RR 36. Cr 5.4. - Vitals now within normal limits. - 03/11 Blood cultures x4: Positive for Strep agalactiae, 03/12 cultures 4: No growth, 03/17 blood cultures 2 no growth, 03/18 blood cultures 4: Pending. - 03/11 MRSA PCR negative, 03/18 MRSA PCR pending - PICC placed for nicardipine use Bacteremia, present on admission, Active / positive blood cultures for Strep agalactiae. - Switched from Ceftriaxone to Penicillin 03/12/17 per ID recommendation. - 03/17 switched from penicillin to Zosyn for broader coverage of possible aspiration pneumonia. - ID consulted and was following, Melquiades out of town till early march. - White count increased 03/18 at 15.2, no fevers, tachycardia, patient on vent lactic acid rechecked (pending) Ventilator Dependent Respiratory Failure, not present on admission, worsening - 03/11 patient required intubation for urgent line placement for dialysis Sedated on propofol and fentanyl, this was DC on 03/14 the patient has remained partially obtunded since that time. - 03/18 patient was found to be in acute respiratory distress as noted by ABG with PO2 of 52, she was subsequently reintubated at that time. Fentanyl and propofol were again required to control the patient's breathing on the vent. - We will defer to ICU team for ventilator management. Acute on Chronic Normocytic Anemia, Present on admission. Improving - Hgb 9.5 initially, went down to 6.8, Required 3 units PRBC with improvement to 9.2. blood counts continued to slowly trend down. Source of blood loss currently unknown. - If Hgb less than 8.0 consider transfusion PRBC at that time. - Continue to monitor and transfuse as needed Acute Renal Failure, Present on admission. Worsening - Initially thought to be 2nd to pre-renal azotemia. - Creatinine initially 5.4, today 5, baseline 1.3. BUN initially 102, today 50 - Monitor I/O, Maya in place. - Nephrology consulted, and following - Hemodialysis done daily since 03/11/17 - Patient did not receive hemodialysis on 03/17, patient received emergent dialysis in the morning of 03/18 Acute Hyperkalemia, Present on admission. Resolved - Secondary to renal failure. EKG reviewed, with no T wave abnormalities. NSR. - Hemodilaysis done daily since 03/11/17 - Patient did not receive hemodialysis on 03/17, no major changes and potassium noted. Mixed Anion Gap Metabolic Acidosis and alkalosis and Respiratory Alkalosis. Present on admission. Active - ABGs as above. - Will provide mechanical ventilation as required - We will defer to ICU team for ventilator management. Grade 1 Diastolic Heart failure, chronic. Present on admission. Active. - With pulmonary hypertension. - Echo 03/12/17 and 02/16 as above. Insulin Using Diabetes Mellitus, Present on admission. Active. HgA1C 5.9 - Home Lantus dose 10 units daily. - Medium dose correctional scale insulin as patient is currently only on TPN Chronic Thrombocytopenia. Present on admission. Active. - Platelet counts remain stable. - Likely Splenic sequestration. - Monitor. Demand Ischemia, with elevated Troponins. Chronic, present on admission. Active. - Elevated tropes - 0.166, with Q6 H trend. No EKG changes. - Previous tropoinins elevated. - Stress test 02/16/17 showed no ischemia. - Echocardiogram repeat on 03/12 shows "Left ventricular wall thickness is borderline increased. The ejection fraction is estimated to be 60-65%. No significant changes since prior study on 02/16/2017." Morbid Obesity. - BMI 41.1 Severe protein nutrition, present on admission, active. - Patient has received nothing by mouth for 6 days - TPN initiated 03/17 - Continue to monitor nutritional status. Hypertension, chronic. - Continue home meds when appropriate. Subclinical Hypothyroidism,acute on chronic. - Continue home Synthroid. Bowel regimen Senna and MiraLAX scheduled and PRN. Zofran when necessary for nausea and vomiting. SubQ heparin held for now. SCDs in place. Disposition: Discharge dependent upon mental status and renal function. Patient required repeat intubation today prognosis guarded. Dated disposition uncertain. Possibility of expiration in the hospital is likely at this point. Extensive discussion was held with the patient's family (her 11 children) as to the grave prognosis of the patient. At this time the family still wants all measures done for her however some of the family members are grasping that this is most likely end-of-life for the patient. The family will continue to discuss the patient's prognosis and what more should be done for her or if she should have a compassionate extubation and switch to comfort care. We will continue to discuss with the patient's family and update them as necessary however at this time the patient is going into multisystem organ failure. VTE Mechanical Devices: Intermittant Pneumatic CD Resuscitation Status: CPR: Attempt Resuscitation Attending Statement The patient was seen and examined together with Dr. Chaudhry on 03/18/17 and I have added additional information to the note above. Sigifredo Winchester DO Mar 18, 2017 17:23 Mayra Glynn DO Mar 19, 2017 13:24
--- NOTE | 2017-03-18 18:00 | NUR ---
Dialysis note: 3 1/2 hours tx 3000 ml net UF Right IJ catheter, dsg dry and intact Heparin prime given Qb 300-400 w/ cath limbs reversed A-V V-A due to freq high art pressure alarms On vent @ 80% FiO2 w/ sat in the 90's Pt restless at start of tx, on Fentanyl gtt and bolus given by primary RN Pls see DTR for VS details Pt became hypotensive shortly after start of tx, desat in the 80's, RT increased FiO2 to 100% Dr Han came at bedside Norepi gtt started; Albumin 25% 50 Gm IV total given by primary RN BP improved (120-150's over 40's HR 60-70's) and able to resume fluid removal O2 sat improved in the 90's, vent decreased to 90% FiO2 Dr Hannah updated on pt's condition and above interventions Family took turns visiting pt in groups 2 hrs into tx, pt still restless and waking up, cont'd on Fentanyl gtt, PRN Ativan 0.5 mg IV given by primary RN Pt tolerated the rest of the tx w/ no problems Catheter flushed, heparin dwelled and secured Stable condition at end of tx Report given to Elisa YORK
--- NOTE | 2017-03-18 18:32 | NUR ---
Intubated this morning for desats, failing bipap support. Intermittent restlessness treated with Fentanyl bolus'/gtt, Ativan in small doses. Large supportive family at bedside, family/MD meeting today. Levophed started during hemodialysis for BP support, with good effect; 3L fluid taken off, now titrating to lower dose as able. Appears comfortable and in no distress, open eyes occasionally and trying to sit up. Continued scant UOP via vieyra. Sinus rhythm on tele. Afebrile.
--- NOTE | 2017-03-18 18:43 | PCM.ADCARE ---
Sigifredo Winchester DO 03/18/17 1843: Advance Care Planning Note Purpose of Encounter: The purpose of this encounter was to determine the CODE STATUS of the patient in question, Shania To. Parties in Attendance: 11 children of the patient, Dr. Glynn, Dr. Winchester Decisional Capacity: The patient is currently on the ventilator, unable to communicate and does not have decisional capacity at this point. Goals of Care Determinations: Family is adamant that they would like everything done for the patient that is possible at this point. Plan: All medical interventions deemed necessary for patients survival will be attempted at this time. CODE STATUS: Full code Time Spent Adv.Care Plannin hour spent communicating with, an consoling family members. Mayra Glynn DO 03/18/17 2003: Advance Care Planning Note Goals of Care Determinations: However, some of the family members understand that this is most likely end of life for the patient. At this time the older siblings are the ones that make the decision in regards to code status. At this time the patient seems to have multisystem organ failure secondary to her hepatorenal syndrome. We will continue to implement all life sustaining measures at this time as per family wishes. Adv. Care Plan Documenation: 60 minutes spent in advance care planing with the family The patient was seen and examined together with Dr. Winchester on 03/18/17 and I have added additional information to the note above. Sigifredo Winchester DO Mar 18, 2017 18:43 Mayra Glynn DO Mar 18, 2017 20:03
[2017-03-18] MEDS ORDERED: LORazepam 0.5 mg Tablet PO PRN (19:55)
[2017-03-18] MEDS ORDERED: LORazepam 100 mg/100 mL NS 100 MG in IV Premix 1 EACH IV PRN (20:00)
[2017-03-18] MEDS: Chlorhexidine 0.12% 15 mL Oral Solution MT SCH (20:03)
[2017-03-18] MEDS: Insulin GLARgine 100 Unit/mL Syringe SUBQ SCH (20:07)
[2017-03-18] MEDS: Total Parenteral Nutrition 1 BAG IV SCH (20:10)
[2017-03-18] MEDS: Sodium Chloride LOK Flush 10 mL Syringe IVFLUSH PRN (22:39)
[2017-03-19] VITALS (15 sets, daily range): BP systolic 92–149; BP diastolic 37–62; PULSE 60–80; RESP 15–21; O2SAT 70–100
[2017-03-19] MEDS: Lactulose 20 Gm/30 mL 30 mL Syrup TUBE SCH ×4 (00:12→23:53)
[2017-03-19] MEDS: Chlorhexidine 0.12% 15 mL Oral Solution MT SCH ×7 (00:12→23:50)
--- NOTE | 2017-03-19 01:22 | NUR ---
P) Sedation/fever/respiratory Pt. still fighting vent after 1mg. ativan with Ppeak of 33-34 and Pplat of 30, gave 1mg IV ativan without any improvement, multiple family members here to visit pt. attempted to limit family in room to 3 at a time with minimal success. Febrile tonight, T-max so far 37.6c orally. Lungs with coarse, decreased breath sounds bilat, L>R. I) Started ativan gtt. will titrate down as able, meds per 's orders, turning q2h and floating heels, FMS and vieyra in place. E) Currently resting quietly with eyes closed.
[2017-03-19] MEDS: Insulin Human REGular 300 Unit/3 mL Inj SUBQ SCH ×4 (02:34→20:53)
[2017-03-19 04:24] LABS: BASOPHILS % (AUTO) 0.2 % (0-3); EOSINOPHILS % (AUTO) 1.6 % (0-5); MONOCYTES % (AUTO) 1.9 % (4-12); Mean Corpuscular Hemoglobin 29.5 pg (27.0-35.0); Platelet Count 46 bil/L (150-400)
--- NOTE | 2017-03-19 04:57 | ABG ---
DateTimeAnalyzed 04:48:00 -_ pH ____7.408 - 7.350 7.450 pCO2 ___44.7__ -mmHg 35.0 45.0 pO2 ___60.7__ -mmHg 69.0 116 HCO3- ___27.7__ -mmol/L 22.0 26.0 ABE ____3.2__ -mmol/L -2.0 2.0 tHb ____8.4__ -g/dL O2Hb ___89.1__ -% COHb ____1.9__ -% MetHb ____0.7__ -% sO2 ___91.5__ -% FIO2 ___90.0__ -% PEEP ___10.0__ -cmH2O Set_RR ___15.0__ -b/min Vt __450.0__ -L Drawn By TLA - Date/Time Notified____ 04:56:00 -_ Spontaneous_RR ___15.0__ -b/min Oxygen Device 1 VENTILATOR - Notified By TLA - Notified Whom Bettina, RN - B 760 -mmHg tO2 ___10.6__ -Vol% Enio test _Positive -
[2017-03-19 05:09] LABS: Magnesium 1.7 mg/dL (1.6-2.6); Phosphorus 2.2 mg/dL (2.5-4.9)
--- NOTE | 2017-03-19 05:25 | NUR ---
P) Respiratory Pt. SPO2 drops into the low 80's with turning and sitting up for x-ray, takes 1-2 minutes to recover, pO2 60.7 this am. I) Vent turned up to 100%, does not tolerate continuous rotation. E) Suctioning with any movement, phlegm clear to brownish red.
[2017-03-19] MEDS ORDERED: Furosemide 10 mg/mL 4 mL Inj IVPUSH ONE (07:10)
[2017-03-19] MEDS: Piperacillin-Tazo 3.375 Gm Inj 3.375 GM in Dextrose 5% Minibag Plus 50 ML IV SCH ×2 (08:10→20:48)
[2017-03-19] MEDS: Pantoprazole 4 mg/mL 10 mL Inj IVPUSH SCH ×2 (08:10→17:18)
[2017-03-19] MEDS: Cisatracurium Inj 200,000 MCG in 0.9% Sodium Chloride-Pha MIX 100 ML IV SCH ×2 (09:34→20:54)
[2017-03-19] MEDS: fentaNYL 2,500 mCg/250 mL 2,500 MCG in IV Premix 1 EACH IV SCH (09:51)
[2017-03-19] MEDS ORDERED: Levothyroxine 100 mCg/5 mL Inj IV ONE (10:50)
--- NOTE | 2017-03-19 12:13 | PCM.PNNEPH ---
Subjective Date of Service Mar 19, 2017 Subjective The patient is unchanged. She remains sedated on a ventilator with normal urine output. Blood pressures been fair. This morning her hemoglobin is 8.1, sodium is 145, potassium 3.9, chloride of 106, bicarbonate 24, BUN and creatinine were 34 and 3.36. Morning phosphorus is 2.2 respectively. Exam Vital Signs Vital Sign - Last Date Time Temp Pulse Resp B/P Pulse Ox O2 Delivery O2 Flow Rate FiO2 03/19/17 10:02 77 149/43 93 100 03/19/17 08:00 37.1 16 Mechanical Ventilator 03/17/17 20:26 15.00 Intake and Output 03/18/17 03/18/17 03/19/17 Cumulative From/Thru 15:00 23:00 07:00 03/11/17 06:07 - 03/19/17 06:27 Intake Total 876 ml 950 ml 23835 ml Output Total 3000 ml 15 ml 16 ml 73615 ml Balance -3000 ml 861 ml 934 ml 1347 ml Intake Oral 0 ml 0 ml IV Total 446 ml 395 ml 22609 ml TPN/PPN 430 ml 555 ml 1022 ml Packed Cells 961 ml Output Urine Total 15 ml 15 ml 565 ml Stool Total 1 ml 732 ml Gastric Drainage Total 450 ml Ultrafiltrate 3000 ml 60913 ml # Bowel Movements 0 2 Exam Patient's sclera are pale. Patient is unresponsive in part due to sedation. Lungs showed scattered rhonchi. Her weight is somewhat tachycardic. Abdomen was soft with diminished bowel sounds. There was no tenderness rebound guarding masses or hepatosplenomegaly. Extremities show any evidence of any clubbing cyanosis or edema. Skin turgor is good. Lab and Diagnostics Result Diagram: 03/19/17 0415 03/19/17 0415 Microbiology Item Value Date Time Adenovirus DNA (PCR) - Final Complete 03/12/17 1234 Nasopharangeal Not Detected Blood Culture Received 03/12/17 0848 Blood Aerobic And Anaerobic Bottle Pending Sputum Quality Screen - Final Resulted 03/11/17 2010 Trachea MRSA (PCR) - Final Complete 03/11/17 1600 Nose Blood Culture - Preliminary Resulted 03/11/17 0703 Blood Aerobic And Anaerobic Bottle Strep Agalactiae - (Group B) Streptococcus pneumoniae Ag Screen - Final Complete 03/11/17 0620 Urine,Random Blood Culture - Preliminary Resulted 03/11/17 0620 Blood Aerobic And Anaerobic Bottle Strep Agalactiae - (Group B) X-Rays, CTs and MRIs PROCEDURE: X-RAY PICC LINE PLACEMENT BY NURSE ([id number]) IMPRESSION: Tip of PICC lies within the atriocaval junction. PROCEDURE: X-RAY CHEST ONE VIEW, PORTABLE ([id number]) IMPRESSION: 1. Pulmonary vascular congestion may reflect fluid overload but etiology is indeterminate. 2. Increased heart size could reflect pericardial effusion. 3. Support tubes in position. PROCEDURE: CT CHEST, ABDOMEN AND PELVIS WITHOUT CONTRAST ([id number]) IMPRESSION: 1. Bilateral lower lobe infiltrates and consolidations consistent with pneumonia. 2. Cirrhotic liver. 3. Splenomegaly and large venous collaterals in upper abdomen consistent with portal hypertension. 4. A small amount of ascites. PROCEDURE: X-RAY CHEST ONE VIEW, PORTABLE ([id number]) IMPRESSION: Interval intubation. Left hemidiaphragm elevation with left basilar atelectasis. X-RAY CHEST ONE VIEW, PORTABLE IMPRESSION: 1. Interval increase in diffuse bilateral widespread pulmonary opacities consistent with pulmonary edema versus diffuse bilateral pneumonia and/or aspiration. Correlate clinically. Dictated by: Efren White RRA Interpreted: Henry Mansfield MD on 03/17/2017 at 9 :12 . X-RAY CHEST ONE VIEW, PORTABLE IMPRESSION: 1. Endotracheal tube tip approximately 2.7 cm from the silvano. Recommend withdrawal by approximately 1 cm. 2. Progressive increase in confluent diffuse bilateral airspace opacities. Findings may reflect increased pulmonary edema/ARDS, pneumonia, or hemorrhage. Dictated by: Kumar Xie M.D. on 03/18/2017 at 8:35 Cardiac Echo Impressions Echocardiogram 03/12/17 Left ventricular wall thickness is borderline increased. The ejection fraction is estimated to be 60-65%. Left ventricular wall motion is normal. The right ventricle is normal in size and function. Right ventricular systolic pressure is estimated to be 30 mmHg plus the clinically estimated CVP which cannot be estimated on this exam. The left atrial size is normal. Right atrial size is normal. There is no significant valvular heart disease. No overt evidence for endocarditis. The aortic root is normal size. No significant changes since prior study on 02/16/2017. Echocardiogram 02/16/2017 Borderline concentric left ventricular hypertrophy with ejection fraction 60- 65%. Grade I diastolic dysfunction. No valvular abnormality. Comparison is made with the echocardiogram of 11/11/2016, there has been no significant change. . Additional Diagnostics DateTimeAnalyzed 05:22:11 -_ pH ____7.445 - 7.350 7.450 pCO2 ___35.5__ -mmHg 35.0 45.0 pO2 ___86.5__ -mmHg 69.0 116 HCO3- ___24.4__ -mmol/L 22.0 26.0 FIO2 ___21.0__ -% PEEP ____5.0__ -cmH2O AGB 14:32:05 pH_7.378 pCO2_19.1 pO2_94.6 HCO3_11.3 Plan Impression Impression #1 acute tubular necrosis secondary to sepsis #2 hepatorenal syndrome #3 hypophosphatemia. Recommendations #1 patient to be dialyzed today for 3-1/2 hours on a standard dialyzer, 3 potassium bath, 400 blood flow and excellent dialysate flow and will take 2-3 L of fluid off. I would also like to supplement 20 mmol of sodium phosphate IV. The prognosis is quite poor. Neymar May DO Mar 19, 2017 12:13
[2017-03-19] MEDS ORDERED: Sodium Phosphate Inj 20 MEQ in Dextrose 5% 250 ML IV ONE (12:15)
--- NOTE | 2017-03-19 12:30 | PROG NOTE ---
[address] [address] PROGRESS NOTE PATIENT: NILESH SPRINGER : 1955 MR#: [id number] ADMIT: 03/11/2017 JOB ID: [id number] DATE: 03/19/2017 PULMONARY CRITICAL CARE FOLLOWUP NOTE: PROBLEMS: 1. Pulmonary edema. 2. Acute hypoxemic respiratory failure. 3. 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 4. Hepatorenal syndrome. 5. Anasarca. 6. Streptococcus agalactiae bacteremia. 7. Thrombocytopenia. 8. Anemia. 9. Lactic acidosis. 10. Hypoalbuminemia. 11. Encephalopathy, hepatic, probable multifactorial. 12. Diabetes mellitus. 13. Called emergently this morning regarding desaturation. OBJECTIVE: Temperature 37.4. Pulse 77. Respiratory rate 20 with ventilator set at 16. Blood pressure 112/37. O2 sat on an FiO2 of 100%, PEEP of 10, is 90%. I and O shows 1 L in, 3 L taken in ultrafiltrate after dialysis yesterday. Sedated, on ventilator. However, some patient/ventilator dyssynchrony. Eyes: Conjunctivae are pink. Chest: Fair breath sounds bilaterally. Bronchovesicular sounds in the anterior lung perales. Somewhat bronchial quality to the breath sounds in the left lower dependent lung field. Heart: Regular rhythm. Heart tones normal. Abdomen: Soft. Quiet. Extremities: Anasarca. Chest x-ray shows diffuse ill-defined pulmonary opacities with air bronchograms in the retrocardiac area and left upper lung field as well as the right mid lung field. Arterial blood gases on an FiO2 of 100%, PEEP of 10, tidal volume of 450, rate of 15 showed a pO2 of 60, pCO2 of 44, pH of 7.40. LABORATORY VALUES: Showed a white count of 19,100 up from 15,200 yesterday, with 91 polymorphonuclears, no bands, 4 lymphocytes, 1 monocyte. Hemoglobin 8.1, down from 9.3 yesterday. Platelet count 46,000, relatively stable. Sodium 145, potassium 3.9, chloride 106, CO2 is 26, BUN 34. Creatinine 3.8, down from 4.97 yesterday prior to dialysis. Glucose 252. Lactic acid 2.6. Calcium 8.2, with an albumin of 2.4. Phosphorus mildly low at 2.2, lower limits of normal being 2.5 mg/dL. Magnesium normal at 1.7. Total bilirubin moderately elevated 2.7. AST mildly elevated 55. ALT normal at 16. Alkaline phos mildly elevated at 174. During the evaluation it was noted that the patient had some thoracoabdominal discoordination with active inspiratory and expiratory abdominal movements. Seemed to settle down with a bit more Ativan. Sats were running about 90-91 and given a pO2 of 60 and questionable hemodynamics, we decided to leave her at that level. The plan was to call Renal about possibly doing dialysis early this morning. Given Lasix 80 mg IV push on the off chance we could encourage some urine output. Totally ineffective. Spoke to the family at length regarding the situation regarding her lungs as well as other comorbidities. It was apparent on rounds that the family misunderstood our discussion. Had a per diem interpreter to re-explain the situation. Went over the details of her lung, brain, kidney, and liver issues. Tried to explain as carefully as I could exactly what was going on. The per diem interpreter believes the family understood what I was trying to say. However, the patient's daughter, who is the primary decision maker, was unfortunately not available. Called back about 90 minutes later because of worsening saturations. O2 sat now down to 84%. PEEP was raised to 12. It was also noted she was quite dyssynchronous with the ventilator. Yesterday we had placed her on SIMV with a rate of 15. The patient was breathing maybe 17. Her rate had increased to 22 but her own breaths were rather ineffective. Switched over to PRVC. Continued to fight the ventilator. At this point blood pressure was 149/43, pulse remained at about 77. Patient minimally responsive. Chest had bronchovesicular breath sounds. Rather clear in the anterior lung perales. Diminished at the left base in a dependent area. Multiple ventilator changes made with increasing volumes, increasing rate, increasing flows, without much effect. Switched over to pressure control mode with pressure control 19, PEEP 12. Resulted in tidal volumes in the mid 500s. Respiratory rate settled at around 16. O2 sats slowly jessica to 92 and on one occasion 94%. Discussed situation with the family through a per diem interpreter, explaining that the lungs were doing worse. Again rediscussed the lungs in the light of her multiple comorbidities. Explained that we were changing the breathing machine settings in order to help with her oxygenation and breathing status. The per diem interpreter indicated that he thought they understood our conversation. PLAN: pressure control ventilation with pressure of 19, PEEP of 12 resulting in tidal volume in the low 500s. FiO2 was left at 100%. Discussed with primary team possible recrudescence of her sepsis. Discussed Zosyn-resistant bacterial infection as well as the possibility of a fungal infection given that she is getting TPN. Discussed definitive prognostic delineation regarding her cirrhosis. Renal has opined that she will probably need lifelong dialysis. Pulmonary status deteriorating, possibly related to fluid overload, hypoalbuminemia, as well as possible sepsis. TIME: Time spent so far in critical care 2 hours, with 1 hour spent early in the morning and 1 hour spent later in the morning.
--- NOTE | 2017-03-19 13:17 | PCM.PHAPRO ---
Progress Altered mental status TPN #3 62 year female with hepatic encephalopathy non alcoholic steato-hepatits (MOSHER) chronic anemia Acute renal failure requiring daily hemodialysis IDDM Recently extubated to room air Bacteremia with Strep agalactiae Obesity with BMI 41.1 Severe protein nutrition, present on admission, active. I. Volume/HD Off pressors, volume status fluctuation with HD II. Chem Mild hypernatremia p/ Reduced Na in mix III. Glucose IDDM by history, monitor and cover with Regular Insulin IV. Macronutrients Cautious introduction of lipids (MOSHER) and consideration of permissive underfeeding approach. PARENTERAL NUTRITION ORDERS 3 19-Mar-17 Standard Hang Time: 2100 Substrates Total kcal: 873 AMINO ACIDS 70 g DEXTROSE 145 g Total Volume (mL): 1000 LIPIDS 10 g Sterile Water for Injection mL To Infuse Over (hrs): 24 Total Volume 1000 mL At at a rate of (mL/hr): 42 Additives Sodium Chloride 20 mEq "typical" daily requirements Sodium Acetate 10 mEq Sodium 50-120mEq Potassium Chloride 30 mEq Potassium 60-120mEq Potassium Phosphate 10 mEq Phosphate 20-40mEq Calcium Gluconate 9 mEq Magnesium 8-32mEq Magnesium Sulfate 4 mEq Calcium 9-22mEq Acetate* 80-120mEq Chloride* 80-120mEq Regular Insulin units *Depending on acid-base status Famotidine mg Multivitamins 1 std dose Insulin Regimen Trace Elements 1 std dose none Thiamine 100 mg Regular Low Intensity Subcut Folic Acid 1 mg Regular Medium Intensity Subcut Ascorbic Acid mg Regular High Intensity Subcut Regular Insulin Infusion Other: Special Instructions: To be infused via central line only. For delay or inturruption of TPN contact the pharmacist for alternative replacement solution. Chao Blanchard Pharm D Mar 19, 2017 13:17
--- NOTE | 2017-03-19 14:38 | DRSVH ---
PROCEDURE: X-RAY CHEST ONE VIEW, PORTABLE ([id number]) INDICATIONS: respiratory distress TECHNIQUE: One view of the chest was acquired. COMPARISON: [facility], CR, XR CHEST 1VW (PORTABLE), 03/18/2017, 14:23. FINDINGS: Surgical changes and devices: ETT tip projected 3.5 cm above the silvano. Right PICC present tip proj ected over the lower SVC. Right IJ double lumen dialysis catheter again noted tip projecting over th e mid superior vena cava. Cholecystectomy clips. Lungs and pleura: Diffuse, widespread bilateral pulmonary interstitial and air space opacities are p resent Mediastinum: Mediastinal contours appear normal. Heart size is normal. Bones and chest wall: No suspicious bony lesions. Overlying soft tissues appear unremarkable. IMPRESSION: No significant change in pulmonary edema and/or diffuse bilateral pneumonia. ARDS cannot be excluded. Dictated by: Efren White [facility] Interpreted: Henry Mansfield MD on 03/19/2017 at 9:54 Approved by: Henry Mansfield M.D. on 03/19/2017 at 14:34
--- NOTE | 2017-03-19 17:08 | PCM.PNMED ---
Subjective Date of Service Mar 19, 2017 Subjective Assessment: Patient comatose and intubated. Family in the room, again discussed with the family her continual tenuous status. They are beginning to understand the gravity of the situation. Events Overnight: Patient continues to desat despite oxygen at 100% ROS: Due to the patient being comatose and intubated, a review of systems was unable to be obtained. Exam Vital Signs Vital Sign - Last Date Time Temp Pulse Resp B/P Pulse Ox O2 Delivery O2 Flow Rate FiO2 03/19/17 14:52 113/43 98 100 03/19/17 14:02 80 03/19/17 12:00 37.1 21 Mechanical Ventilator 03/17/17 20:26 15.00 Intake and Output 03/18/17 03/18/17 03/19/17 Cumulative From/Thru 15:00 23:00 07:00 03/11/17 06:07 - 03/19/17 06:27 Intake Total 876 ml 950 ml 96538 ml Output Total 3000 ml 15 ml 16 ml 98181 ml Balance -3000 ml 861 ml 934 ml 1347 ml Intake Oral 0 ml 0 ml IV Total 446 ml 395 ml 91004 ml TPN/PPN 430 ml 555 ml 1022 ml Packed Cells 961 ml Output Urine Total 15 ml 15 ml 565 ml Stool Total 1 ml 732 ml Gastric Drainage Total 450 ml Ultrafiltrate 3000 ml 21635 ml # Bowel Movements 0 2 Exam General: Patient is currently intubated, comatose. HEENT: Normocephalic, atraumatic. Pupils equal, round, and minimally reactive to light and accommodation. Anicteric sclerae. right IJ HD cath placement. Cardiovascular: Normal rate and rhythm with II/ systolic murmur, no rubs, or gallops appreciated Pulmonary: Coarse sounds made by the vent. Coarse rhonchi appreciated diffusely. Equal air sounds bilaterally. Abdomen: Bowel tones present. Soft, Obese, scattered bruising, nondistended. Extremities: No clubbing, cyanosis, +3 non pitting edema of the arms and +3 pitting edema of the legs, no lymphadenopathy appreciated. Skin: Normal temperature, turgor, scattered bruising of the upper arms, no ulcers, or subcutaneous nodules appreciated. Neurological: Unable to assess due to intubation status Psychiatric: Unable to assess due to intubation status IVs and Medications IV Fluids 600 mL normal saline delivered with IV medications. Medications Reviewed: Medications were reviewed in detail Medications High-risk medications include: Fentanyl Lab and Diagnostics Result Diagram: 03/19/17 0415 03/19/17 0415 Microbiology Item Value Date Time Adenovirus DNA (PCR) - Final Complete 03/12/17 1234 Nasopharangeal Not Detected Blood Culture Received 03/12/17 0848 Blood Aerobic And Anaerobic Bottle Pending Sputum Quality Screen - Final Resulted 03/11/17 2010 Trachea MRSA (PCR) - Final Complete 03/11/17 1600 Nose Blood Culture - Preliminary Resulted 03/11/17 0703 Blood Aerobic And Anaerobic Bottle Strep Agalactiae - (Group B) Streptococcus pneumoniae Ag Screen - Final Complete 03/11/17 0620 Urine,Random Blood Culture - Preliminary Resulted 03/11/17 0620 Blood Aerobic And Anaerobic Bottle Strep Agalactiae - (Group B) X-Rays, CTs and MRIs X-RAY CHEST ONE VIEW, PORTABLE IMPRESSION: Bibasilar atelectasis. Recommend an upright PA and lateral chest radiograph performed in the radiology when the patient is able. Dictated by: Boris Ferrer M.D. on 03/11/2017 at 7:45 Approved by: Boris Ferrer M.D. on 03/11/2017 at 7:47 CT BRAIN WITHOUT CONTRAST IMPRESSION: 1. No acute intracranial abnormalities. 2. Cerebral volume loss and chronic microvascular ischemic changes. No significant discrepancy with the casino shift manager radiology preliminary report. Dictated by: Frida Vega M.D. on 03/12/2017 at 7:39 Approved by: Frida Vega M.D. on 03/12/2017 at 7:41 X-RAY CHEST ONE VIEW, PORTABLE IMPRESSION: Interval intubation. Left hemidiaphragm elevation with left basilar atelectasis. Dictated by: Boris Ferrer M.D. on 03/11/2017 at 20:21 Approved by: Boris Ferrer M.D. on 03/11/2017 at 20:22 CT CHEST, ABDOMEN AND PELVIS WITHOUT CONTRAST IMPRESSION: 1. Bilateral lower lobe infiltrates and consolidations consistent with pneumonia. 2. Cirrhotic liver. 3. Splenomegaly and large venous collaterals in upper abdomen consistent with portal hypertension. 4. A small amount of ascites. Dictated by: Frida Vega M.D. on 03/12/2017 at 8:54 Approved by: Frida Vega M.D. on 03/12/2017 at 9:05 X-RAY CHEST ONE VIEW, PORTABLE IMPRESSION: 1. Pulmonary vascular congestion may reflect fluid overload but etiology is indeterminate. 2. Increased heart size could reflect pericardial effusion. 3. Support tubes in position. Dictated by: Petros Wiley M.D. on 03/12/2017 at 8:15 Approved by: Petros Wiley M.D. on 03/12/2017 at 8:17 X-RAY PICC LINE PLACEMENT BY NURSE IMPRESSION: Tip of PICC lies within the atriocaval junction. Dictated by: Faith Bojorquez MD, PhD on 03/12/2017 at 18:47 Approved by: Faith Bojorquez MD, PhD on 03/12/2017 at 18:48 X-RAY CHEST ONE VIEW, PORTABLE. IMPRESSION: Appropriate position of endotracheal tube. Persistent bilateral pneumonia. Dictated by: Frida Vega M.D. on 03/13/2017 at 12:39 Approved by: Frida Vega M.D. on 03/13/2017 at 12:40 X-RAY CHEST ONE VIEW, PORTABLE IMPRESSION: Resolving multifocal pneumonia. Dictated by: Idris Reynaga M.D. on 03/14/2017 at 7:54 Approved by: Idris Reynaga M.D. on 03/14/2017 at 7:54 X-RAY CHEST ONE VIEW, PORTABLE IMPRESSION: 1. Interval increase in diffuse bilateral widespread pulmonary opacities consistent with pulmonary edema versus diffuse bilateral pneumonia and/or aspiration. Correlate clinically. Dictated by: Efren White [facility] Interpreted: Henry Mansfield MD on 03/17/2017 at 9: 12 Approved by: Henry Mansfield M.D. on 03/17/2017 at 9:16 X-RAY CHEST ONE VIEW, PORTABLE IMPRESSION: 1. Endotracheal tube tip approximately 2.7 cm from the silvano. Recommend withdrawal by approximately 1 cm. 2. Progressive increase in confluent diffuse bilateral airspace opacities. Findings may reflect increased pulmonary edema/ARDS, pneumonia, or hemorrhage. Dictated by: Kumar Xie M.D. on 03/18/2017 at 8:35 X-RAY CHEST ONE VIEW, PORTABLE. IMPRESSION: 1. Endotracheal tube tip approximately 2.5 cm from the silvano. Recommend withdrawal by approximately 1 cm. 2. Progressive increase in diffuse bilateral airspace opacities likely representing pulmonary edema/ARDS or pneumonia. Dictated by: Kumar Xie M.D. on 03/18/2017 at 14:50 Approved by: Kumar Xie M.D. on 03/18/2017 at 14:56 X-RAY CHEST ONE VIEW, PORTABLE IMPRESSION: No significant change in pulmonary edema and/or diffuse bilateral pneumonia. ARDS cannot be excluded. Dictated by: Efren White [facility] Interpreted: Henry Mansfield MD on 03/19/2017 at 9: 54 Approved by: Henry Mansfield M.D. on 03/19/2017 at 14:34 . Cardiac Echo Impressions Echocardiogram 03/12/17 Left ventricular wall thickness is borderline increased. The ejection fraction is estimated to be 60-65%. Left ventricular wall motion is normal. The right ventricle is normal in size and function. Right ventricular systolic pressure is estimated to be 30 mmHg plus the clinically estimated CVP which cannot be estimated on this exam. The left atrial size is normal. Right atrial size is normal. There is no significant valvular heart disease. No overt evidence for endocarditis. The aortic root is normal size. No significant changes since prior study on 02/16/2017. Echocardiogram 02/16/2017 Borderline concentric left ventricular hypertrophy with ejection fraction 60- 65%. Grade I diastolic dysfunction. No valvular abnormality. Comparison is made with the echocardiogram of 11/11/2016, there has been no significant change. . Additional Diagnostics US RENAL SONOGRAM IMPRESSION: No hydronephrosis or large renal masses. The bladder could not be effectively imaged due to the patient's general medical condition. Dictated by: Boris Ferrer M.D. on 03/11/2017 at 8:51 Approved by: Boris Ferrer M.D. on 03/11/2017 at 8:53 AGB 14:32:05 pH_7.378 pCO2_19.1 pO2_94.6 HCO3_11.3 ABG 05:22:11 pH 7.445 pCO2 35.5 pO2 86.5 HCO3 24.4 FIO2 21.0 PEEP 5.0 [facility] 04:41:00 pH 7.418 pCO2 37.4 pO2 67.5 HCO3 23.7 FIO2 21.0 PEEP 10.0 [facility] 14:06:15 pH 7.488 pCO2 34.3 pO2 143 HCO3 26.1 FIO2 100.0 [facility] 06:55:00 pH 7.418 pCO2 39.6 pO2 52.8 HCO3 25.1 FIO2 100.0 CPAP 15.0 PEEP 8.0 [facility] 11:14:21 pH 7.440 pCO2 40.2 pO2 87.0 HCO3 27.3 FIO2 80.0 PEEP 10.0 [facility] 04:48:00 pH 7.408 pCO2 44.7 pO2 60.7 HCO3 27.7 FIO2 90.0 PEEP 10.0 Assessment & Plan Ms. Shania Cavazosgado is a 62 year old lady here due to hepatic encephalopathy, non alcoholic steatoHepatits, Acute renal failure, and Insulin dependent Diabetes mellitus requiring emergent hemo-dialysis and lactulose treatments. Encephalopathy, Present on admission. Active. - Initially Secondary to endstage liver cirrhosis/MOSHER and high ammonia levels. - History of Grade 2 esophageal varicies (August), Portal htn gastropathy. - Ammonia 307 initially. Currently 45. - Lactulose at 200 mg rectally Q4H with rectal balloon 30-[address] mins. [address] tube in place. - Patient has been receiving daily dialysis and should continue dialysis until her fluid status improves. Severe Sepsis, not present on admission. Improved. Initially Met SIRS criteria with; Tachycardia, tachypnea and Fever. Lactic acid initially elevated returned to normal levels. - Likely secondary to bacteremia initially treated with penicillin, currently being treated with IV Zosyn. - White count continues to climb 03/19, 19.1. Up from 11.1 on 03/17 - No fevers, - 03/11 Blood cultures x4: Positive for Strep agalactiae, 03/12 cultures 4: No growth, 03/17 blood cultures 2 no growth, 03/18 blood cultures 4: No growth after 24 hours - 03/11 MRSA PCR negative, 03/18 MRSA PCR negative - PICC placed for nicardipine use, blood pressures low but has been maintained stable with use of nicardipine Bacteremia, present on admission, Active Initially 11/24 positive blood cultures for Strep agalactiae. - Switched from Ceftriaxone to Penicillin 03/12/17 per ID recommendation. - 03/17 switched from penicillin to Zosyn for broader coverage of possible aspiration pneumonia - White count increased 03/19 at 19.1, no fevers, tachycardia, patient on vent lactic acid 2.6 03/19 Ventilator Dependent Respiratory Failure, not present on admission, worsening - 03/11 patient required intubation for urgent line placement for dialysis Sedated on propofol and fentanyl, this was DC on 03/14 the patient has remained partially obtunded since that time. - 03/18 patient was found to be in acute respiratory distress as noted by ABG with PO2 of 52, she was subsequently reintubated at that time. Fentanyl and Ativan were required to control the patient's breathing on the vent. - Will defer to ICU team for ventilator management. Acute on Chronic Normocytic Anemia, Present on admission. Improving - Hgb 9.5 initially, went down to 6.8, Required 3 units PRBC with improvement to 9.2. blood counts continue to slowly trend down. Source of blood loss currently unknown. - If Hgb less than 8.0 consider transfusion PRBC at that time. - Continue to monitor and transfuse as needed Acute Renal Failure, Present on admission. Worsening - Initially thought to be 2nd to pre-renal azotemia. - Creatinine initially 5.4, today 3.86, baseline 1.3. BUN initially 102, today 34 - Monitor I/O, Maya in place. - Nephrology consulted, and following - Hemodialysis done daily since 03/11/17 - Patient did not receive hemodialysis on 03/17, patient has received daily dialysis since that time. Acute Hyperkalemia, Present on admission. Resolved - Secondary to renal failure. EKG reviewed, with no T wave abnormalities. NSR. - Hemodilaysis done daily since 03/11/17 - Patient did not receive hemodialysis on 03/17, no major changes in potassium noted. Mixed Anion Gap Metabolic Acidosis and alkalosis and Respiratory Alkalosis. Present on admission. Active - ABGs as above. - Will provide mechanical ventilation as required - We will defer to ICU team for ventilator management. Grade 1 Diastolic Heart failure, chronic. Present on admission. Active. - With pulmonary hypertension. - Echo 03/12/17 and 02/16 as above. Insulin Using Diabetes Mellitus, Present on admission. Active. HgA1C 5.9 - Home Lantus dose 10 units daily. - Medium dose correctional scale insulin as patient is currently only on TPN Chronic Thrombocytopenia. Present on admission. Active. - Platelet counts remain stable. - Likely Splenic sequestration. - Monitor Demand Ischemia, with elevated Troponins. Chronic, present on admission. Active. - Elevated tropes - 0.166, with Q6 H trend. No EKG changes. - Previous tropoinins elevated. - Stress test 02/16/17 showed no ischemia. - Echocardiogram repeat on 03/12 shows "Left ventricular wall thickness is borderline increased. The ejection fraction is estimated to be 60-65%. No significant changes since prior study on 02/16/2017." Morbid Obesity. - BMI 41.1 Severe protein nutrition, present on admission, active. - Patient has received nothing by mouth for 6 days - TPN initiated 03/17 - Continue to monitor nutritional status. Hypertension, chronic. - Continue home meds when appropriate. Subclinical Hypothyroidism,acute on chronic. - Continue home Synthroid. Bowel regimen Senna and MiraLAX scheduled and PRN. Zofran when necessary for nausea and vomiting. SubQ heparin held for now. SCDs in place. Disposition: Patient required repeat intubation today prognosis guarded with possibility of expiration in the hospital is likely at this point. More discussion was held with the family today about the patient's prognosis some of the children are accepting the fact that the patient is declining and one daughter (Sophia) stated that their mother would not want to live on machines and sustained in this manner and that the best thing would be to extubate the patient. She stated that she will continue to talk with the family and let us know if they are all in agreement with a compassionate extubation. The patient is steadily declining and could possibly make that decision for us. We will continue to discuss with the family for further treatment plans and goals of care. VTE Mechanical Devices: Intermittant Pneumatic CD Resuscitation Status: CPR: Attempt Resuscitation Time spent 90 minutes Attending Statement The patient was seen and examined together with Dr. Winchester 03/19/2017 on (date) and I have added additional information to the note above. Sigifredo Winchester DO Mar 19, 2017 17:08 Mayra Glynn DO Mar 20, 2017 14:57
--- NOTE | 2017-03-19 17:50 | NUR ---
Dialysis note: 3 1/2 hours tx 3000 ml net UF Right IJ catheter, dsg dry and intact Pls see DTR for VS details, cont'd on Norepi gtt Qb 400 w/ cath limbs reversed A-V V-A due to poor cath function Heparin prime given On vent @ 100% FiO2 w/ sat in the 90's to 100% Tolerated tx, cont'd on IV sedation (Fentanyl and Ativan) Catheter flushed, heparin dwelled and secured Stable condition at end of tx Report given to Cheryl YORK
--- NOTE | 2017-03-19 17:54 | NUR ---
Oxygenation... Pt was very unstable ventilation jenkisn this am with persistent Spo2 drops into the 80's and occasionally 70's. MD was at the bedside frequently with vent adjustments made. Have been unable to turn pt or do any CLRT as movement caused pt to desat quickly. Dr Glynn spoke with family at the bedside and updated the severity of her illness. They have made the decision to continue the level of care she is receiving and to continue dialysis. They have met with the tours hostess and have been grieving at the bedside. Restraints removed as pt is not showing attempts to pull tubes and has family at the bedside continuously. Did [place] dialysis well and this afternoon SPo2 has improved to 100% and pt has been able to have FI02 weaned down to 85%.
[2017-03-19] MEDS: TPN Per Pharmacist XX SCH (18:44)
[2017-03-19] MEDS: Total Parenteral Nutrition 1 BAG IV SCH (20:49)
[2017-03-19] MEDS: Insulin GLARgine 100 Unit/mL Syringe SUBQ SCH (20:52)
[2017-03-19] MEDS ORDERED: Norepinephrine 8,000 mCg/250 mL NS Premix IV ONE (23:56)
[2017-03-20] VITALS (13 sets, daily range): BP systolic 105–149; BP diastolic 36–52; PULSE 76–89; RESP 18–19; O2SAT 86–100
--- NOTE | 2017-03-20 00:24 | NUR ---
P) Respiratory/cardiac Pt.'s breath sounds continue coarse with scattered rales, more air moving on R than L. bronchospastic cough productive of clear wilder to reddish phlegm. SPO2 drops into the 80's with turning, cont. rotation or range of motion,pt. appears to have no reserve. Cardiac rhythm still sinus with an IVCD and no ectopy but requiring increasing amounts of norepinephrine to maintain MAP above 60. Low grade temp again tonight, T-max 37.1c orally. I) Meds per 's orders, cont. to monitor, turning gently q2h, floating heels. E) LOTS of family in and out, updating as appropriate.
[2017-03-20] MEDS: Insulin Human REGular 300 Unit/3 mL Inj SUBQ SCH ×4 (02:25→20:21)
[2017-03-20] MEDS: Chlorhexidine 0.12% 15 mL Oral Solution MT SCH ×6 (04:05→23:58)
--- NOTE | 2017-03-20 04:31 | ABG ---
DateTimeAnalyzed 04:25:00 -_ pH ____7.379 - 7.350 7.450 pCO2 ___47.7__ -mmHg 35.0 45.0 pO2 ___67.1__ -mmHg 69.0 116 HCO3- ___27.5__ -mmol/L 22.0 26.0 ABE ____2.5__ -mmol/L -2.0 2.0 tHb ____8.8__ -g/dL O2Hb ___90.0__ -% COHb ____2.5__ -% MetHb ____0.7__ -% sO2 ___93.0__ -% FIO2 ___80.0__ -% PEEP ___15.0__ -cmH2O Vt __360.0__ -L Drawn By AF - Date/Time Notified____ 04:31:00 -_ Spontaneous_RR ___18.0__ -b/min Oxygen Device 1 VENTILATOR - Notified By AF - B 760 -mmHg tO2 ___11.2__ -Vol% Enio test _Positive -
[2017-03-20 05:21] LABS: BASOPHILS % (AUTO) 0.1 % (0-3); EOSINOPHILS % (AUTO) 3.4 % (0-5); MONOCYTES % (AUTO) 2.7 % (4-12); Mean Corpuscular Hemoglobin 29.7 pg (27.0-35.0); Mean Corpuscular Volume 91.9 fL (81-100); NEUTROPHILS % (AUTO) 87.7 % (40-74); Platelet Count 54 bil/L (150-400)
--- NOTE | 2017-03-20 05:30 | NUR ---
P) Fever Pt. febrile again tonight, T-max 377.8c orally. I) Passive cooling measures. E) Resting quietly.
[2017-03-20 05:52] LABS: Magnesium 1.6 mg/dL (1.6-2.6); Phosphorus 2.1 mg/dL (2.5-4.9)
[2017-03-20] MEDS: Cisatracurium Inj 200,000 MCG in 0.9% Sodium Chloride-Pha MIX 100 ML IV SCH ×2 (08:28→19:00)
[2017-03-20] MEDS: Pantoprazole 4 mg/mL 10 mL Inj IVPUSH SCH ×2 (08:35→18:06)
[2017-03-20] MEDS: Levothyroxine 100 mCg/5 mL Inj IV SCH (08:36)
[2017-03-20] MEDS: Piperacillin-Tazo 3.375 Gm Inj 3.375 GM in Dextrose 5% Minibag Plus 50 ML IV SCH ×2 (08:36→20:14)
[2017-03-20] MEDS: Lactulose 20 Gm/30 mL 30 mL Syrup TUBE SCH ×3 (08:40→23:57)
[2017-03-20] MEDS: TPN Per Pharmacist XX SCH (08:40)
--- NOTE | 2017-03-20 08:53 | DRSVH ---
PROCEDURE: X-RAY CHEST ONE VIEW, PORTABLE ([id number]) INDICATIONS: respiratory distress TECHNIQUE: One view of the chest was acquired. COMPARISON: [facility], CR, XR CHEST 1VW (PORTABLE), 03/19/2017, 5:04. FINDINGS: Surgical changes and devices: Unchanged endotracheal tube and large bore right-sided central venous c atheter with the tip projecting in the upper SVC. There is a right PICC line which is also unchanged Lungs and pleura: No definite pleural effusion or pneumothorax. There are widespread groundglass and patchy consolidated opacities which are minimally improved since yesterday Mediastinum: Mediastinal contours appear normal. Heart size is normal. Bones and chest wall: No suspicious bony lesions. Overlying soft tissues appear unremarkable. IMPRESSION: Overall, minimally improved aeration of lungs bilaterally since yesterday. Stable support equipment Dictated by: Ross Keating M.D. on 03/20/2017 at 8:46 Approved by: Ross Keating M.D. on 03/20/2017 at 8:50
--- NOTE | 2017-03-20 09:52 | CONS ---
[address] [address] CONSULTATION REPORT PATIENT: NILESH SPRINGER : 1955 MR#: [id number] ADMIT: 03/11/2017 JOB ID: [id number] DATE OF SERVICE: 03/20/2017 GASTROENTEROLOGY CONSULTATION: REASON FOR CONSULTATION: Altered mental status, renal syndrome cirrhosis. HISTORY OF PRESENT ILLNESS: This is a unfortunate 62-year-old female with a history of cirrhosis presented from [facility] with a MELD score of 23 on March 12, 2017 by labs complicated with acute renal failure and respiratory failure, currently intubated admitted for altered mental status and encephalopathy. The patient was admitted on March 11, 2017 in which the patient was found to have altered mental status. The patient is only Sami-speaking. The patient could not speak during this interview given intubated and alter ms and in which most of the history has come from the family members. The patient also has a history status post cholecystectomy, portal hypertension, chronic thrombocytopenia, chronic kidney disease stage 3, and diabetes type 2 and hepatic encephalopathy. During this hospital stay, the patient had an ammonia of 307 upon admission in which her BUN was 102 and creatinine 5.4. The patient was also found to be hyponatremia 128 sodium and potassium 6.3. The patient was placed on hemodialysis. The patient was also found to have blood work which showed bacteremia on March 11, 2017 showing blood cultures positive for strep agalactia. The patient also required intubation on March 11, 2017 at that point in time. It is unknown whether the patient had an EGD or colonoscopy in the past and family history is unknown whether there is inflammatory bowel disease, colon cancer or IBD. The patient presents for further evaluation. PAST MEDICAL HISTORY: As stated above. PAST SURGERIES: As stated above. CURRENT MEDICATIONS: Showin. Insulin. 2. Synthroid. 3. TPN. 4. Lorazepam as needed. 5. Fentanyl drip. 6. Zosyn. 7. Pantoprazole 40 IV b.i.d. 8. Lactulose 20 g rectal 2 q.8. 9. Senna, MiraLAX and Zofran as needed. ALLERGIES: No known drug allergies. SOCIAL HISTORY/FAMILY HISTORY: Is unobtainable. REVIEW OF SYSTEMS: Unobtainable. PHYSICAL EXAMINATION: Vital signs upon presentation: Temperature is 37.8, pulse of 90, blood pressure of 121/44, respiratory rate 18, satting 97%. Currently on mechanical ventilation, intubated, FiO2 to 80%. Generally obtunded, intubated, in no acute distress. Head: No scars. Eyes: Bilateral scleral icterus. Throat: Supple. Lungs: Crackles bilaterally. Abdomen: Soft, nondistended, nontender. Normoactive bowel sounds. Extremities: Anasarca. LABORATORIES: Labs show a sodium 143, potassium 4.0, chloride 105, bicarbonate 32, creatinine 3.7, glucose 236, lactic acid 2.6 calcium 8.1, phosphorus 2.1, magnesium 1.6. Total bili 3.6, AST 47, ALT 16, alk phos 194. Total protein 5.0. Albumin 2.2. TSH 4.2, free T4 0.63. IMAGING: CT chest, abdomen and pelvis performed on March 11, 2017 showed bilateral lobe infiltrates of the lung with consolidation consistent with pneumonia, cirrhosis of the liver, splenomegaly with large venous collaterals with portal hypertension, small amount of ascites. ASSESSMENT AND PLAN: This is a unfortunate 62-year-old Sami-speaking only female currently intubated with a history of cirrhosis presumed due to MOSHER, MELD score of 23 as of March 12, 2017, complicated with portal hypertensive, splenomegaly, currently with history of status post cholecystectomy, diabetes type 2, chronic kidney disease stage 3, now currently on hemodialysis from hepatorenal syndrome, admitted with altered mental status, when she was found to have bacteremia, pneumonia, renal failure on hemodialysis and hepatic encephalopathy. I have had a long discussion with three of the family members in which one was able to speak Armenian. I have informed them of the poor prognosis of the patient at this point in time. I have also recommended that the family members get together and talk to each other in terms of goals of care for this patient. I think a palliative care consultation would be worthwhile for this patient given the multiorgan failure of this patient currently in the ICU setting. In regard to GI, I agree with lactulose rectally at this point in time. xifaxan 550mg po would be part of the standard of care for hepatic encephalopathy in addition to lactulose for this hospitalized pt if the patient was able to take this by mouth. RECOMMENDATIONS: 1. Highly recommend palliative care consultation. Prognosis is poor given the multi organ failure of this patient. 2. Continue lactulose per rectal 20 g pr q.8- goal of 3bm/day. 3. Serial CMPs, PT and INR 4. I have encouraged the patient's family to discuss goals of care given the poor prognosis of this patient. Will continue to follow. MTDD
[2017-03-20] MEDS: fentaNYL 2,500 mCg/250 mL 2,500 MCG in IV Premix 1 EACH IV SCH (10:37)
--- NOTE | 2017-03-20 10:47 | NUR ---
NUTRITION FOLLOW UP: ASSESS: 62 YO F admitted to CCU with hepatic encephalopathy, non alcoholic steatohepatitis, severe sepsis and acute renal failure. She required intubation and initiation of daily dialysis. Pt extubated 03/14 but required re-intubation 03/18. Pt remains NPO. NGT was unable to be placed 03/16 for enteral feeding; PICC was placed to initiate TPN 03/17, which continues to provide suboptimal macronutrient content due to multi-system organ failure. There have been multiple discussions with the many family members involved in the patient's care; apparently some of them are coming to fiber [facility] with the terminal diagnosis; however, code status remains full at this time. PMHx: Hepatitis C, Liver cirrhosis, thrombocytopenia secondary to splenic sequestration, portal HTN, leg edema, ascites, hypervolemic hypotonic hyponatremia, type 2 diabetes ID, GERD, depression, cholecystectomy. DIET: NPO X 9 days. TPN: Continuing to recommend minimal lipids due to pt hx liver disease, as well as reduced dextrose and protein related to multisystem organ failure. Formulation follows: 145 g Dex, 70 g AA and 10g lipids to provide 873 kcal and 70 g pro (45% kcal and 63% pro needs) Will monitor labs closely, possible need to decrease lipids LABS: Reviewed. BUN 32, Cr 3.27, Glu 236, Ca 8.1, Phos 2.1, Total Bili 3.6, Alk Phos 194, Alb 2.2. MEDICATIONS: Reviewed. Rectal lactulose, fentanyl, ativan, norepi, insulin, nimbex. GI: 70 ml stool output today via FMS. SKIN: No pressure injuries reported. ANTHROPOMETRICS: Current Wt: 95.0 kg, BMI: 40.0 kg/m2. Admit wt 103kg IBW: 45.5 kg, Adj. BW 59.7 kg. ESTIMATED NEEDS (BMI, RENAL DIALYSIS, ES LIVER DISEASE,VENT): Calories: 7053-0172 kcal (30-35 kcal/kg Adj. BW) Protein: 90-110 g/day (1.5-1.8 g/kg Adj. BW) Fluids: ~1500-2000ml/day or per nephrology NUTRITION DIAGNOSIS: 1) Increased nutrient needs related to increased demand for nutrients, as evidenced by requirement for renal dialysis, end-stage liver disease - PERSISTS. 2) Inadequate oral intake related to inability to consume sufficient energy, as evidenced by NPO status - PERSISTS. INTERVENTION: 1) Will continue same TPN over weekend. MONITOR/EVALUATE: NPO status, wt, TPN [place], POC, labs, GI/nutrition status. Follow per high nutrition risk guidelines.
--- NOTE | 2017-03-20 10:57 | PCM.PNNEPH ---
Subjective Date of Service Mar 20, 2017 Subjective Follow-up patient's condition is quite poor. She remains dependent on a ventilator with 80% oxygen and 18 of PEEP. Her blood pressure has remained low and requiring increasing doses of norepinephrine. Last 24-hour shoe; 15 mL of urine out. White count remains elevated at 23.2 and her hemoglobin is 8.6. Morning labs showed a sodium of 143, potassium 4.0, chloride 105, bicarbonate 26 , BUN and creatinine were 32 and 3.27 with an albumin of 2.2. Her morning chest x-ray continues to demonstrate extensive pulmonary edema and blanching of the costophrenic angles. Exam Vital Signs Vital Sign - Last Date Time Temp Pulse Resp B/P Pulse Ox O2 Delivery O2 Flow Rate FiO2 03/20/17 08:15 90 121/44 97 80 03/20/17 04:00 37.8 18 Mechanical Ventilator 03/17/17 20:26 15.00 Intake and Output 03/19/17 03/19/17 03/20/17 Cumulative From/Thru 15:00 23:00 07:00 03/11/17 06:07 - 03/20/17 05:50 Intake Total 619 ml 904 ml 54532 ml Output Total 3000 ml 50 ml 80 ml 35336 ml Balance -3000 ml 569 ml 824 ml -260 ml Intake Oral 0 ml IV Total 527 ml 405 ml 47048 ml TPN/PPN 92 ml 499 ml 1613 ml Packed Cells 961 ml Output Urine Total 0 ml 10 ml 575 ml Stool Total 70 ml 802 ml Urine/Stool Mix 50 ml 50 ml Gastric Drainage Total 450 ml Ultrafiltrate 3000 ml 46195 ml # Bowel Movements 2 Exam Patient is sedated and on a ventilator. Lungs showed a few scattered rhonchi and diffuse soft rales. Heart is tachycardic. Abdomen is soft with minimal bowel sounds. There is no tenderness rebound guarding masses or hepatosplenomegaly. Extremities do not show any evidence of any clubbing cyanosis or some generalized edema throughout her body. Lab and Diagnostics Result Diagram: 03/20/1715 03/20/1715 Microbiology Item Value Date Time Adenovirus DNA (PCR) - Final Complete 03/12/17 1234 Nasopharangeal Not Detected Blood Culture Received 03/12/17 0848 Blood Aerobic And Anaerobic Bottle Pending Sputum Quality Screen - Final Resulted 7/20/17 2010 Trachea MRSA (PCR) - Final Complete 03/11/17 1600 Nose Blood Culture - Preliminary Resulted 03/11/17 0703 Blood Aerobic And Anaerobic Bottle Strep Agalactiae - (Group B) Streptococcus pneumoniae Ag Screen - Final Complete 03/11/17 0620 Urine,Random Blood Culture - Preliminary Resulted 03/11/17 0620 Blood Aerobic And Anaerobic Bottle Strep Agalactiae - (Group B) X-Rays, CTs and MRIs X-RAY CHEST ONE VIEW, PORTABLE IMPRESSION: Bibasilar atelectasis. Recommend an upright PA and lateral chest radiograph performed in the radiology when the patient is able. Dictated by: Boris Ferrer M.D. on 03/11/2017 at 7:45 Approved by: Boris Ferrer M.D. on 03/11/2017 at 7:47 CT BRAIN WITHOUT CONTRAST IMPRESSION: 1. No acute intracranial abnormalities. 2. Cerebral volume loss and chronic microvascular ischemic changes. No significant discrepancy with the rn shift mgr radiology preliminary report. Dictated by: Frida Vega M.D. on 03/12/2017 at 7:39 Approved by: Frida Vega M.D. on 03/12/2017 at 7:41 X-RAY CHEST ONE VIEW, PORTABLE IMPRESSION: Interval intubation. Left hemidiaphragm elevation with left basilar atelectasis. Dictated by: Boris Ferrer M.D. on 03/11/2017 at 20:21 Approved by: Boris Ferrer M.D. on 03/11/2017 at 20:22 CT CHEST, ABDOMEN AND PELVIS WITHOUT CONTRAST IMPRESSION: 1. Bilateral lower lobe infiltrates and consolidations consistent with pneumonia. 2. Cirrhotic liver. 3. Splenomegaly and large venous collaterals in upper abdomen consistent with portal hypertension. 4. A small amount of ascites. Dictated by: Frida Vega M.D. on 03/12/2017 at 8:54 Approved by: Frida Vega M.D. on 03/12/2017 at 9:05 X-RAY CHEST ONE VIEW, PORTABLE IMPRESSION: 1. Pulmonary vascular congestion may reflect fluid overload but etiology is indeterminate. 2. Increased heart size could reflect pericardial effusion. 3. Support tubes in position. Dictated by: Petros Wiley M.D. on 03/12/2017 at 8:15 Approved by: Petros Wiley M.D. on 03/12/2017 at 8:17 X-RAY PICC LINE PLACEMENT BY NURSE IMPRESSION: Tip of PICC lies within the atriocaval junction. Dictated by: Faith Bojorquez MD, PhD on 03/12/2017 at 18:47 Approved by: Faith Bojorquez MD, PhD on 03/12/2017 at 18:48 X-RAY CHEST ONE VIEW, PORTABLE. IMPRESSION: Appropriate position of endotracheal tube. Persistent bilateral pneumonia. Dictated by: Frida Vega M.D. on 03/13/2017 at 12:39 Approved by: Frida Vega M.D. on 03/13/2017 at 12:40 X-RAY CHEST ONE VIEW, PORTABLE IMPRESSION: Resolving multifocal pneumonia. Dictated by: Idris Reynaga M.D. on 03/14/2017 at 7:54 Approved by: Idris Reynaga M.D. on 03/14/2017 at 7:54 X-RAY CHEST ONE VIEW, PORTABLE IMPRESSION: 1. Interval increase in diffuse bilateral widespread pulmonary opacities consistent with pulmonary edema versus diffuse bilateral pneumonia and/or aspiration. Correlate clinically. Dictated by: Efren White RRA Interpreted: Henry Mansfield MD on 03/17/2017 at 9: 12 Approved by: Henry Mansfield M.D. on 03/17/2017 at 9:16 X-RAY CHEST ONE VIEW, PORTABLE IMPRESSION: 1. Endotracheal tube tip approximately 2.7 cm from the silvano. Recommend withdrawal by approximately 1 cm. 2. Progressive increase in confluent diffuse bilateral airspace opacities. Findings may reflect increased pulmonary edema/ARDS, pneumonia, or hemorrhage. Dictated by: Kumar Xie M.D. on 03/18/2017 at 8:35 X-RAY CHEST ONE VIEW, PORTABLE. IMPRESSION: 1. Endotracheal tube tip approximately 2.5 cm from the silvano. Recommend withdrawal by approximately 1 cm. 2. Progressive increase in diffuse bilateral airspace opacities likely representing pulmonary edema/ARDS or pneumonia. Dictated by: Kumar Xie M.D. on 03/18/2017 at 14:50 Approved by: Kumar Xie M.D. on 03/18/2017 at 14:56 X-RAY CHEST ONE VIEW, PORTABLE IMPRESSION: No significant change in pulmonary edema and/or diffuse bilateral pneumonia. ARDS cannot be excluded. Dictated by: Efren White [facility] Interpreted: Henry Mansfield MD on 03/19/2017 at 9: 54 Approved by: Henry Mansfield M.D. on 03/19/2017 at 14:34 . Cardiac Echo Impressions Echocardiogram 03/12/17 Left ventricular wall thickness is borderline increased. The ejection fraction is estimated to be 60-65%. Left ventricular wall motion is normal. The right ventricle is normal in size and function. Right ventricular systolic pressure is estimated to be 30 mmHg plus the clinically estimated CVP which cannot be estimated on this exam. The left atrial size is normal. Right atrial size is normal. There is no significant valvular heart disease. No overt evidence for endocarditis. The aortic root is normal size. No significant changes since prior study on 02/16/2017. Echocardiogram 02/16/2017 Borderline concentric left ventricular hypertrophy with ejection fraction 60- 65%. Grade I diastolic dysfunction. No valvular abnormality. Comparison is made with the echocardiogram of 11/11/2016, there has been no significant change. . Additional Diagnostics US RENAL SONOGRAM IMPRESSION: No hydronephrosis or large renal masses. The bladder could not be effectively imaged due to the patient's general medical condition. Dictated by: Boris Ferrer M.D. on 03/11/2017 at 8:51 Approved by: Boris Ferrer M.D. on 03/11/2017 at 8:53 [facility] 14:32:05 pH_7.378 pCO2_19.1 pO2_94.6 HCO3_11.3 [facility] 05:22:11 pH 7.445 pCO2 35.5 pO2 86.5 HCO3 24.4 FIO2 21.0 PEEP 5.0 [facility] 04:41:00 pH 7.418 pCO2 37.4 pO2 67.5 HCO3 23.7 FIO2 21.0 PEEP 10.0 [facility] 14:06:15 pH 7.488 pCO2 34.3 pO2 143 HCO3 26.1 FIO2 100.0 [facility] 06:55:00 pH 7.418 pCO2 39.6 pO2 52.8 HCO3 25.1 FIO2 100.0 CPAP 15.0 PEEP 8.0 AB 11:14:21 pH 7.440 pCO2 40.2 pO2 87.0 HCO3 27.3 FIO2 80.0 PEEP 10.0 ABG 04:48:00 pH 7.408 pCO2 44.7 pO2 60.7 HCO3 27.7 FIO2 90.0 PEEP 10.0 Plan Impression Impression #1 acute tubular necrosis #2 hepatorenal syndrome #3 sepsis Recommendations #1 the patient dialyzed today for 3-1/2 hours on a standard dialyzer, 3 potassium bath, and also help to 200 in our, 400 blood flow 600 dialysate flow, I will also give 25 g of albumin at the start of the treatment and after 1 hour we will try to take 2-3 L as tolerated. Prognosis is quite pleased. I have discussed this with the family once again. Neymar May DO Mar 20, 2017 10:57
--- NOTE | 2017-03-20 11:38 | NUR ---
Skin/Turning.. Have been unable to do consistent turning in the past due to instability of ventilation and desats that would occur with any movement of the pt. This am had stable Spo2 so attempt made to turn to the left for skin check. Noted to have 1 inch area on lower R buttock of shear. Mipelex applied to area and to the sacrum prophylactically. Pt had desats to 88% but recovered once she was left alone. Has had improved B/P, levophed weaned. Family at the bedside and updated.
--- NOTE | 2017-03-20 15:42 | PROG NOTE ---
[address] [address] PROGRESS NOTE PATIENT: NILESH SPRINGER : 1955 MR#: [id number] ADMIT: 03/11/2017 JOB ID: [id number] FOLLOWUP VENTILATOR MANAGEMENT NOTE: DATE: 03/20/2017 PROBLEM LIST: 1. Pulmonary edema with hypoxemic hypercarbic respiratory failure. 2. 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 3. Acute renal failure, probable hepatorenal syndrome. 4. Streptococcus agalactiae bacteremia. 5. Hepatic encephalopathy. SUBJECTIVE: None. OBJECTIVE: Temperature 36.9 with a T-max of 37.8, pulse 90, respiratory rate 18, blood pressure 115/36, O2 sat on FiO2 of 80%, PEEP of 15 is 96% to 99%. I and O shows 1.5 L in, 15 mL of urine out with dialysis removing 3 liters of ultrafiltrate. General appearance: Sedated on the ventilator. Chest fairly good breath sounds bilaterally. Scattered crackles in the anterior lung perales with delivered tidal volume of mid 400s, peak inspiratory pressure is 32, plateau was about 27. PEEP is set at 15, measured at 15. Heart: Regular rhythm. Heart tones seem normal. Arterial blood gases on FiO2 of 80%, PEEP of 15. Pressure control of 19 shows a pO2 of 67, pCO2 47, pH 7.37 (the patient's ventilator mode is pressure control with a pressure of 19, PEEP of 15, FiO2 of 0.8, respiratory rate of 18, delivering tidal volume in the mid 400s.) ASSESSMENT: Some improvement in respiratory status. Greatly heartening, as for the past two days it has been constant deterioration. This is our first day of any improvement. Hopefully, will portend continued respiratory advance. PLAN: Continue current vent settings.
[2017-03-20] MEDS ORDERED: Albumin 25% 100 ML IV ONE (16:15)
[2017-03-20] MEDS ORDERED: Norepinephrine 8,000 mCg/250 mL NS Premix IV ONE (20:05)
--- NOTE | 2017-03-20 20:12 | PCM.PNMED ---
Subjective Date of Service Mar 20, 2017 Subjective Assessment: Patient comatose on ventilator. Discussed with family new findings , which were not many. Family continues to endorse doing everything for the patient at this time. Events Overnight: No acute events overnight. ROS: Due to the patient being comatose, a review of systems was unable to be obtained. Exam Vital Signs Vital Sign - Last Date Time Temp Pulse Resp B/P Pulse Ox O2 Delivery O2 Flow Rate FiO2 03/20/17 19:37 Ventilator 03/20/17 19:32 80 03/20/17 19:32 36.7 18 134/47 99 90 03/17/17 20:26 15.00 Intake and Output 03/19/17 03/19/17 03/20/17 Cumulative From/Thru 15:00 23:00 07:00 03/11/17 06:07 - 03/20/17 05:50 Intake Total 619 ml 904 ml 34690 ml Output Total 3000 ml 50 ml 80 ml 43059 ml Balance -3000 ml 569 ml 824 ml -260 ml Intake Oral 0 ml IV Total 527 ml 405 ml 64275 ml TPN/PPN 92 ml 499 ml 1613 ml Packed Cells 961 ml Output Urine Total 0 ml 10 ml 575 ml Stool Total 70 ml 802 ml Urine/Stool Mix 50 ml 50 ml Gastric Drainage Total 450 ml Ultrafiltrate 3000 ml 54296 ml # Bowel Movements 2 Exam General: Patient is currently intubated, comatose. HEENT: Normocephalic, atraumatic. Pupils equal, round, and minimally reactive to light and accommodation. Anicteric sclerae. right IJ HD cath placement. Cardiovascular: Normal rate and rhythm with II/ systolic murmur, no rubs, or gallops appreciated Pulmonary: Coarse sounds made by the vent. Coarse rhonchi appreciated diffusely. Equal air sounds bilaterally. Abdomen: Bowel tones present. Soft, Obese, scattered bruising, nondistended. Extremities: No clubbing, cyanosis, +3 non pitting edema of the arms and +3 pitting edema of the legs, no lymphadenopathy appreciated. Skin: Normal temperature, turgor, scattered bruising of the upper arms, no ulcers, or subcutaneous nodules appreciated. Neurological: Unable to assess due to intubation status Psychiatric: Unable to assess due to intubation status IVs and Medications IV Fluids 50 mL IV saline TPN 42 mL/hour Lab and Diagnostics Result Diagram: 7/29/17 0515 03/20/17 0515 Microbiology Item Value Date Time Adenovirus DNA (PCR) - Final Complete 03/12/17 1234 Nasopharangeal Not Detected Blood Culture Received 03/12/17 0848 Blood Aerobic And Anaerobic Bottle Pending Sputum Quality Screen - Final Resulted 03/11/17 2010 Trachea MRSA (PCR) - Final Complete 03/11/17 1600 Nose Blood Culture - Preliminary Resulted 03/11/17 0703 Blood Aerobic And Anaerobic Bottle Strep Agalactiae - (Group B) Streptococcus pneumoniae Ag Screen - Final Complete 03/11/17 0620 Urine,Random Blood Culture - Preliminary Resulted 03/11/17 0620 Blood Aerobic And Anaerobic Bottle Strep Agalactiae - (Group B) X-Rays, CTs and MRIs X-RAY CHEST ONE VIEW, PORTABLE IMPRESSION: Bibasilar atelectasis. Recommend an upright PA and lateral chest radiograph performed in the radiology when the patient is able. Dictated by: Boris Ferrer M.D. on 03/11/2017 at 7:45 Approved by: Boris Ferrer M.D. on 03/11/2017 at 7:47 CT BRAIN WITHOUT CONTRAST IMPRESSION: 1. No acute intracranial abnormalities. 2. Cerebral volume loss and chronic microvascular ischemic changes. 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 Dictated by: Frida Vega M.D. on 03/12/2017 at 7:39 Approved by: Frida Vega M.D. on 03/12/2017 at 7:41 X-RAY CHEST ONE VIEW, PORTABLE IMPRESSION: Interval intubation. Left hemidiaphragm elevation with left basilar atelectasis. Dictated by: Boris Ferrer M.D. on 03/11/2017 at 20:21 Approved by: Boris Ferrer M.D. on 03/11/2017 at 20:22 CT CHEST, ABDOMEN AND PELVIS WITHOUT CONTRAST IMPRESSION: 1. Bilateral lower lobe infiltrates and consolidations consistent with pneumonia. 2. Cirrhotic liver. 3. Splenomegaly and large venous collaterals in upper abdomen consistent with portal hypertension. 4. A small amount of ascites. Dictated by: Frida Vega M.D. on 03/12/2017 at 8:54 Approved by: Frida Vega M.D. on 03/12/2017 at 9:05 X-RAY CHEST ONE VIEW, PORTABLE IMPRESSION: 1. Pulmonary vascular congestion may reflect fluid overload but etiology is indeterminate. 2. Increased heart size could reflect pericardial effusion. 3. Support tubes in position. Dictated by: Petros Wiley M.D. on 03/12/2017 at 8:15 Approved by: Petros Wiley M.D. on 03/12/2017 at 8:17 X-RAY PICC LINE PLACEMENT BY NURSE IMPRESSION: Tip of PICC lies within the atriocaval junction. Dictated by: Faith Bojorquez MD, PhD on 03/12/2017 at 18:47 Approved by: Faith Bojorquez MD, PhD on 03/12/2017 at 18:48 X-RAY CHEST ONE VIEW, PORTABLE. IMPRESSION: Appropriate position of endotracheal tube. Persistent bilateral pneumonia. Dictated by: Frida Vega M.D. on 03/13/2017 at 12:39 Approved by: Frida Vega M.D. on 03/13/2017 at 12:40 X-RAY CHEST ONE VIEW, PORTABLE IMPRESSION: Resolving multifocal pneumonia. Dictated by: Idris Reynaga M.D. on 03/14/2017 at 7:54 Approved by: Idris Reynaga M.D. on 03/14/2017 at 7:54 X-RAY CHEST ONE VIEW, PORTABLE IMPRESSION: 1. Interval increase in diffuse bilateral widespread pulmonary opacities consistent with pulmonary edema versus diffuse bilateral pneumonia and/or aspiration. Correlate clinically. Dictated by: Efren White [facility] Interpreted: Henry Mansfield MD on 03/17/2017 at 9: 12 Approved by: Henry Mansfield M.D. on 03/17/2017 at 9:16 X-RAY CHEST ONE VIEW, PORTABLE IMPRESSION: 1. Endotracheal tube tip approximately 2.7 cm from the silvano. Recommend withdrawal by approximately 1 cm. 2. Progressive increase in confluent diffuse bilateral airspace opacities. Findings may reflect increased pulmonary edema/ARDS, pneumonia, or hemorrhage. Dictated by: Kumar Xie M.D. on 03/18/2017 at 8:35 X-RAY CHEST ONE VIEW, PORTABLE. IMPRESSION: 1. Endotracheal tube tip approximately 2.5 cm from the silvano. Recommend withdrawal by approximately 1 cm. 2. Progressive increase in diffuse bilateral airspace opacities likely representing pulmonary edema/ARDS or pneumonia. Dictated by: Kumar Xie M.D. on 03/18/2017 at 14:50 Approved by: Kumar Xie M.D. on 03/18/2017 at 14:56 X-RAY CHEST ONE VIEW, PORTABLE IMPRESSION: No significant change in pulmonary edema and/or diffuse bilateral pneumonia. ARDS cannot be excluded. Dictated by: Efren White [facility] Interpreted: Henry Mansfield MD on 03/19/2017 at 9: 54 Approved by: Henry Mansfield M.D. on 03/19/2017 at 14:34 . Cardiac Echo Impressions Echocardiogram 03/12/17 Left ventricular wall thickness is borderline increased. The ejection fraction is estimated to be 60-65%. Left ventricular wall motion is normal. The right ventricle is normal in size and function. Right ventricular systolic pressure is estimated to be 30 mmHg plus the clinically estimated CVP which cannot be estimated on this exam. The left atrial size is normal. Right atrial size is normal. There is no significant valvular heart disease. No overt evidence for endocarditis. The aortic root is normal size. No significant changes since prior study on 02/16/2017. Echocardiogram 02/16/2017 Borderline concentric left ventricular hypertrophy with ejection fraction 60- 65%. Grade I diastolic dysfunction. No valvular abnormality. Comparison is made with the echocardiogram of 11/11/2016, there has been no significant change. . Additional Diagnostics US RENAL SONOGRAM IMPRESSION: No hydronephrosis or large renal masses. The bladder could not be effectively imaged due to the patient's general medical condition. Dictated by: Boris Ferrer M.D. on 03/11/2017 at 8:51 Approved by: Boris Ferrer M.D. on 03/11/2017 at 8:53 [facility] 14:32:05 pH_7.378 pCO2_19.1 pO2_94.6 HCO3_11.3 AB 05:22:11 pH 7.445 pCO2 35.5 pO2 86.5 HCO3 24.4 FIO2 21.0 PEEP 5.0 AB 04:41:00 pH 7.418 pCO2 37.4 pO2 67.5 HCO3 23.7 FIO2 21.0 PEEP 10.0 [facility] 14:06:15 pH 7.488 pCO2 34.3 pO2 143 HCO3 26.1 FIO2 100.0 [facility] 06:55:00 pH 7.418 pCO2 39.6 pO2 52.8 HCO3 25.1 FIO2 100.0 CPAP 15.0 PEEP 8.0 [facility] 11:14:21 pH 7.440 pCO2 40.2 pO2 87.0 HCO3 27.3 FIO2 80.0 PEEP 10.0 [facility] 04:48:00 pH 7.408 pCO2 44.7 pO2 60.7 HCO3 27.7 FIO2 90.0 PEEP 10.0 Assessment & Plan Ms. Shania To is a 62 year old lady here due to hepatic encephalopathy, non alcoholic steatoHepatits, Acute renal failure, and Insulin dependent Diabetes mellitus requiring emergent hemo-dialysis and lactulose treatments. Encephalopathy, Present on admission. Active. - Initially Secondary to endstage liver cirrhosis/MOSHER and high ammonia levels. - History of Grade 2 esophageal varicies (August), Portal htn gastropathy. - Ammonia 307 initially. Last checked 45. - Lactulose at 200 mg rectally Q4H with rectal balloon 30-60 mins. [address]MS tube in place. - Patient has been receiving daily dialysis and should continue dialysis until her fluid status improves. Severe Sepsis, not present on admission. Improved. Initially Met SIRS criteria with; Tachycardia, tachypnea and Fever. Lactic acid initially elevated returned to normal levels. - Likely secondary to bacteremia initially treated with penicillin, currently being treated with IV Zosyn. - White count continues to climb 03/20, 23.2. Up from 11.1 on 03/17 - No fevers, - 03/11 Blood cultures x4: Positive for Strep agalactiae, 03/12 cultures 4: No growth, 03/17 blood cultures 2 no growth, 03/18 blood cultures 4: No growth - 03/11 MRSA PCR negative, 03/18 MRSA PCR negative - PICC placed for nicardipine use, blood pressures low but has been maintained stable with use of nicardipine Bacteremia, present on admission, Active Initially 4/ positive blood cultures for Strep agalactiae. - 03/12 Switched from Ceftriaxone to Penicillin per ID recommendation. - 03/17 switched from penicillin to Zosyn for broader coverage of possible aspiration pneumonia - White count continues to increase, no fevers, tachycardia, patient on vent, lactic acid 2.6 03/19 Ventilator Dependent Respiratory Failure, not present on admission, worsening - 03/11 patient required intubation for urgent line placement for dialysis Sedated on propofol and fentanyl, this was DC on 03/14 the patient has remained partially obtunded since that time. - 03/18 patient was found to be in acute respiratory distress as noted by ABG with PO2 of 52, she was subsequently reintubated at that time. Fentanyl and Ativan were required to control the patient's breathing on the vent. - Will defer to ICU team for ventilator management. Acute on Chronic Normocytic Anemia, Present on admission. Improving - Hgb 9.5 initially, went down to 6.8, Required 3 units PRBC with improvement to 9.2. blood counts continue to slowly trend down. Source of blood loss currently unknown. - If Hgb less than 8.0 consider transfusion PRBC at that time. - Continue to monitor and transfuse as needed Acute Renal Failure, Present on admission. Worsening - Initially thought to be 2nd to pre-renal azotemia. - Creatinine initially 5.4, today 3.86, baseline 1.3. BUN initially 102, today 34 - Monitor I/O, Maya in place. - Nephrology consulted, and following - Hemodialysis done daily since 03/11/17 - Patient did not receive hemodialysis on 03/17, patient has received daily dialysis since that time. Acute Hyperkalemia, Present on admission. Resolved - Secondary to renal failure. EKG reviewed, with no T wave abnormalities. NSR. - Hemodilaysis done daily since 03/11/17 - Patient did not receive hemodialysis on 03/17, no major changes in potassium noted. Mixed Anion Gap Metabolic Acidosis and alkalosis and Respiratory Alkalosis. Present on admission. Active - ABGs as above. - Will provide mechanical ventilation as required - We will defer to ICU team for ventilator management. Grade 1 Diastolic Heart failure, chronic. Present on admission. Active. - With pulmonary hypertension. - Echo 03/12/17 and 02/16 as above. Insulin Using Diabetes Mellitus, Present on admission. Active. HgA1C 5.9 - Increase home Lantus dose from 10 units to 30 units QHS. - Medium dose correctional scale insulin as patient is currently only on TPN Chronic Thrombocytopenia. Present on admission. Active. - Platelet counts remain stable. - Likely Splenic sequestration. - Monitor Demand Ischemia, with elevated Troponins. Chronic, present on admission. Active. - Elevated tropes - 0.166, with Q6 H trend. No EKG changes. - Previous tropoinins elevated. - Stress test 02/16/17 showed no ischemia. - Echocardiogram repeat on 03/12 shows "Left ventricular wall thickness is borderline increased. The ejection fraction is estimated to be 60-65%. No significant changes since prior study on 02/16/2017." Morbid Obesity. - BMI 41.1 Severe protein nutrition, present on admission, active. - Patient has received nothing by mouth for 6 days - TPN initiated 03/17 - Continue to monitor nutritional status. Hypertension, chronic. - Continue home meds when appropriate. Subclinical Hypothyroidism,acute on chronic. - Continue home Synthroid. Bowel regimen Senna and MiraLAX scheduled and PRN. Zofran when necessary for nausea and vomiting. SubQ heparin held for now. SCDs in place. Disposition: As patient required repeat intubation, prognosis guarded. Possibility of expiration in the hospital is likely at this point. More discussion was held with the family today about the patient's prognosis some of the children are accepting the fact that the patient is declining and one daughter (Sophia) stated that their mother would not want to live on machines and sustained in this manner and that the best thing would be to extubate the patient. She stated that she will continue to talk with the family and let us know if they are all in agreement with a compassionate extubation. The patient is steadily declining and could possibly make that decision for us. We will continue to discuss with the family for further treatment plans and goals of care. VTE Mechanical Devices: Intermittant Pneumatic CD Resuscitation Status: CPR: Attempt Resuscitation Attending Statement The patient was seen and examined together with Dr. Winchester on 03/20/17 and I have added additional information to the note above. Sigifredo Winchester DO Mar 20, 2017 20:12 Mayra Glynn DO Mar 21, 2017 11:17
[2017-03-20] MEDS: Total Parenteral Nutrition 1 BAG IV SCH (20:14)
[2017-03-20] MEDS: Insulin GLARgine 100 Unit/mL Syringe SUBQ SCH (20:21)
--- NOTE | 2017-03-20 20:46 | NUR ---
Hemodialysis note: 3.5 hr tx completed, 2.5kg fluid removed. BP dropped at beginning of tx, Norepi rate increased and BP stabilized for rest of tx. SBP 130-140. BVP 71.2, BFR 350 with catheter ports reversed. Catheter dresg changed, exit site and surrounding area cleaned using chloraprep and alcohol. No S/S infection or bleeding. Dialyzer clear post RB.
[2017-03-20] MEDS: Norepineph 8,000 mCg/250 mL NS 8,000 MCG in IV Premix 1 EACH IV SCH (20:55)
[2017-03-21] VITALS (12 sets, daily range): BP systolic 113–149; BP diastolic 35–45; PULSE 81–87; RESP 18–20; O2SAT 93–99
[2017-03-21] MEDS: Insulin Human REGular 300 Unit/3 mL Inj SUBQ SCH ×4 (03:05→20:56)
[2017-03-21] MEDS: Chlorhexidine 0.12% 15 mL Oral Solution MT SCH ×5 (03:05→20:21)
--- NOTE | 2017-03-21 04:15 | NUR ---
Respiratory/hypotension. Pt on PCV mode on vent support, @start of shift fio2 0.90 down to 0.80, sp02 mid 90's @rest, with turns/activity briefly desats to 86% Remain on levo gtt for hypotension, slowly tapered gtt to 0.09 mcg/kg/min to keep map>60, anuric.
[2017-03-21 05:41] LABS: BASOPHILS % (AUTO) 0.2 % (0-3); EOSINOPHILS % (AUTO) 3.5 % (0-5); MONOCYTES % (AUTO) 4.2 % (4-12); Mean Corpuscular Hemoglobin 29.9 pg (27.0-35.0); Mean Corpuscular Volume 92.9 fL (81-100); NEUTROPHILS % (AUTO) 86.6 % (40-74); Platelet Count 48 bil/L (150-400)
[2017-03-21 06:21] LABS: Magnesium 1.4 mg/dL (1.6-2.6); Phosphorus 1.9 mg/dL (2.5-4.9)
[2017-03-21] MEDS: Cisatracurium Inj 200,000 MCG in 0.9% Sodium Chloride-Pha MIX 100 ML IV SCH ×2 (07:22→18:49)
[2017-03-21] MEDS ORDERED: Potassium Phos (mEq) Inj 20 MEQ in Dextrose 5% 250 ML IV ONE (08:00)
[2017-03-21] MEDS: Piperacillin-Tazo 3.375 Gm Inj 3.375 GM in Dextrose 5% Minibag Plus 50 ML IV SCH ×2 (08:24→20:21)
[2017-03-21] MEDS: Pantoprazole 4 mg/mL 10 mL Inj IVPUSH SCH ×2 (08:24→17:45)
[2017-03-21] MEDS: Levothyroxine 100 mCg/5 mL Inj IV SCH (08:24)
[2017-03-21] MEDS: Lactulose 20 Gm/30 mL 30 mL Syrup TUBE SCH ×2 (08:25→17:45)
--- NOTE | 2017-03-21 08:54 | DRSVH ---
PROCEDURE: X-RAY CHEST ONE VIEW, PORTABLE ([id number]) INDICATIONS: 62 year-old female with respiratory distress. TECHNIQUE: One view of the chest was acquired. COMPARISON: [facility], CR, XR CHEST 1VW (PORTABLE), 03/20/2017, 3:29. [facility], CR, XR CHEST 1VW (PORTABLE), 03/19/2017, 5:04. [facility], CR, XR CHEST 1VW (CHARLIE BLE), 03/18/2017, 14:23. FINDINGS: Surgical changes and devices: Endotracheal tube and right internal jugular central venous catheter re main in expected positions, as well as right PICC. Patient is status post cholecystectomy. Lungs and pleura: No pleural effusions or pneumothorax. Widespread bilateral airspace opacities have increased in density, with internal air bronchograms. Mediastinum: Mediastinal contours appear normal. Heart size is normal. Bones and chest wall: No suspicious bony lesions. Overlying soft tissues appear unremarkable. IMPRESSION: Interval increased degree of diffuse pulmonary edema. Dictated by: Juan Carlos Fernandez M.D. on 03/21/2017 at 8:50 Approved by: Juan Carlos Fernandez M.D. on 03/21/2017 at 8:51
--- NOTE | 2017-03-21 09:47 | PCM.PNSURG ---
Subjective Date of Service: Mar 21, 2017 Date of Service: Mar 21, 2017 Visit Information: Subjective: intubated Postop General: No Complaints Objective Vital Sign- Last 8 Hours Date Time Temp Pulse Resp B/P Pulse Ox O2 Delivery O2 Flow Rate FiO2 03/21/17 08:19 Ventilator 03/21/17 08:00 36.8 82 20 126/35 99 Mechanical Ventilator 90 03/21/17 07:55 78 126/35 95 80 03/21/17 04:45 82 132/45 95 80 03/21/17 04:01 83 03/21/17 04:01 37.2 82 18 113/37 96 Mechanical Ventilator 80 Intake and Output- Last 8 Hour 03/21/17 Cumulative From/Thru 07:00 03/11/17 06:07 - 03/21/17 05:38 Intake Total 831 ml 98953 ml Output Total 80 ml 80718 ml Balance 751 ml -2207 ml Intake Oral 0 ml 0 ml IV Total 353 ml 85110 ml TPN/PPN 478 ml 2091 ml Packed Cells 961 ml Output Urine Total 0 ml 575 ml Stool Total 80 ml 982 ml Urine/Stool Mix 0 ml 50 ml Gastric Drainage Total 450 ml Ultrafiltrate 59233 ml # Bowel Movements 2 General: No Acute Distress Neck: Supple Lungs: Crackles Heart: Exam Unremarkable Abdomen: Benign, Soft, Non-tender, Non-distended, Normoactive bowel tones Extremities: Distal Pulses Palpable Result Diagram: 03/21/17 0535 03/21/17 0535 Assessment & Plan Impression This is a unfortunate 62-year-old Slovenian-speaking only female currently intubated with a history of cirrhosis presumed due to MOSHER, MELD score of 23 as of March 12, 2017, complicated with portal hypertensive, splenomegaly, currently with history of status post cholecystectomy, diabetestype 2, chronic kidney disease stage 3, now currently on hemodialysis from hepatorenal syndrome, admitted with altered mental status, when she was found to have bacteremia, pneumonia, renal failure on hemodialysis and hepatic encephalopathy. I have had a long discussion on 03/20 with three of the family members in which one was able to speak Kinyarwanda. I have informed them of the poor prognosis of the patient at this point in time. I have also recommended that the family members get together and talk to each other in terms of goals of care for this patient. I think a palliative care/ethics consultation would be worthwhile for this patient given the multiorgan failure of this patient currently in the ICU setting. In regard to GI, I agree with lactulose rectally at this point in time given cirrhosis and HE. xifaxan 550mg po would be part of the standard of care for hepatic encephalopathy in addition to lactulose for this hospitalized pt if the patient was able to take this by mouth. ct chest/abdomen/pelvis no contrast 03/11/2017- IMPRESSION: 1. Bilateral lower lobe infiltrates and consolidations consistent with pneumonia. 2. Cirrhotic liver. 3. Splenomegaly and large venous collaterals in upper abdomen consistent with portal hypertension. 4. A small amount of ascites. RECOMMENDATIONS: 1. Recommend palliative care/ethics consultation. 2. Continue lactulose per rectal 20 g pr q.8- goal of 3bm/day. 3. Serial CMPs, PT and INR daily Will continue to follow. Problems: Resuscitation Status: CPR: Attempt Resuscitation Escobar Alcocer MD Mar 21, 2017 09:47
[2017-03-21] MEDS: fentaNYL 2,500 mCg/250 mL 2,500 MCG in IV Premix 1 EACH IV SCH (11:10)
--- NOTE | 2017-03-21 11:10 | PCM.PNNEPH ---
Subjective Date of Service Mar 21, 2017 Subjective The patient's condition is unchanged. She remains ventilatory dependent on high flow and high pressure oxygen. She was made 10 also urine in the last 24 hours. Blood pressure is somewhat better. This morning the sodium is 140, potassium 4.3, chloride 101, bicarbonate 24, BUN and creatinine were 30 and 2.53. Chest x-ray shows some slight improvement. Exam Vital Signs Vital Sign - Last Date Time Temp Pulse Resp B/P Pulse Ox O2 Delivery O2 Flow Rate FiO2 03/21/17 08:19 Ventilator 03/21/17 08:00 36.8 82 20 126/35 99 90 03/17/17 20:26 15.00 Intake and Output 03/20/17 03/20/17 03/21/17 Cumulative From/Thru 15:00 23:00 07:00 03/11/17 06:07 - 03/21/17 05:38 Intake Total 402 ml 831 ml 53005 ml Output Total 3100 ml 80 ml 68201 ml Balance -2698 ml 751 ml -2207 ml Intake Oral 0 ml 0 ml IV Total 402 ml 353 ml 64465 ml TPN/PPN 478 ml 2091 ml Packed Cells 961 ml Output Urine Total 0 ml 0 ml 575 ml Stool Total 100 ml 80 ml 982 ml Urine/Stool Mix 0 ml 50 ml Gastric Drainage Total 450 ml Ultrafiltrate 3000 ml 82981 ml # Bowel Movements 2 Exam Patient is sedated and on a ventilator. Lungs show diffuse scattered rhonchi. Sounds are diminished. Heart was tachycardic. Abdomen shows minimal to no oral sounds. There is no tenderness, rebound, guarding, masses, or hepatosplenomegaly. Extremities do not show any evidence of any clubbing, cyanosis, or edema. Lab and Diagnostics Result Diagram: 03/21/17 0535 03/21/17 0535 Microbiology Item Value Date Time Adenovirus DNA (PCR) - Final Complete 03/12/17 1234 Nasopharangeal Not Detected Blood Culture Received 03/12/17 0848 Blood Aerobic And Anaerobic Bottle Pending Sputum Quality Screen - Final Resulted 03/11/17 2010 Trachea MRSA (PCR) - Final Complete 03/11/17 1600 Nose Blood Culture - Preliminary Resulted 03/11/17 0703 Blood Aerobic And Anaerobic Bottle Strep Agalactiae - (Group B) Streptococcus pneumoniae Ag Screen - Final Complete 03/11/17 0620 Urine,Random Blood Culture - Preliminary Resulted 03/11/17 0620 Blood Aerobic And Anaerobic Bottle Strep Agalactiae - (Group B) X-Rays, CTs and MRIs X-RAY CHEST ONE VIEW, PORTABLE IMPRESSION: Bibasilar atelectasis. Recommend an upright PA and lateral chest radiograph performed in the radiology when the patient is able. Dictated by: Boris Ferrer M.D. on 03/11/2017 at 7:45 Approved by: Boris Ferrer M.D. on 03/11/2017 at 7:47 CT BRAIN WITHOUT CONTRAST IMPRESSION: 1. No acute intracranial abnormalities. 2. Cerebral volume loss and chronic microvascular ischemic changes. No significant discrepancy with the night coordinator radiology preliminary report. Dictated by: Frida Vega M.D. on 03/12/2017 at 7:39 Approved by: Frida Vega M.D. on 03/12/2017 at 7:41 X-RAY CHEST ONE VIEW, PORTABLE IMPRESSION: Interval intubation. Left hemidiaphragm elevation with left basilar atelectasis. Dictated by: Boris Ferrer M.D. on 03/11/2017 at 20:21 Approved by: Boris Ferrer M.D. on 03/11/2017 at 20:22 CT CHEST, ABDOMEN AND PELVIS WITHOUT CONTRAST IMPRESSION: 1. Bilateral lower lobe infiltrates and consolidations consistent with pneumonia. 2. Cirrhotic liver. 3. Splenomegaly and large venous collaterals in upper abdomen consistent with portal hypertension. 4. A small amount of ascites. Dictated by: Frida Vega M.D. on 03/12/2017 at 8:54 Approved by: Frida Vega M.D. on 03/12/2017 at 9:05 X-RAY CHEST ONE VIEW, PORTABLE IMPRESSION: 1. Pulmonary vascular congestion may reflect fluid overload but etiology is indeterminate. 2. Increased heart size could reflect pericardial effusion. 3. Support tubes in position. Dictated by: Petros Wiley M.D. on 03/12/2017 at 8:15 Approved by: Petros Wiley M.D. on 03/12/2017 at 8:17 X-RAY PICC LINE PLACEMENT BY NURSE IMPRESSION: Tip of PICC lies within the atriocaval junction. Dictated by: Faith Bojorquez MD, PhD on 03/12/2017 at 18:47 Approved by: Faith Bojorquez MD, PhD on 03/12/2017 at 18:48 X-RAY CHEST ONE VIEW, PORTABLE. IMPRESSION: Appropriate position of endotracheal tube. Persistent bilateral pneumonia. Dictated by: Frida Vega M.D. on 03/13/2017 at 12:39 Approved by: Frida Vega M.D. on 03/13/2017 at 12:40 X-RAY CHEST ONE VIEW, PORTABLE IMPRESSION: Resolving multifocal pneumonia. Dictated by: Idris Reynaga M.D. on 03/14/2017 at 7:54 Approved by: Idris Reynaga M.D. on 03/14/2017 at 7:54 X-RAY CHEST ONE VIEW, PORTABLE IMPRESSION: 1. Interval increase in diffuse bilateral widespread pulmonary opacities consistent with pulmonary edema versus diffuse bilateral pneumonia and/or aspiration. Correlate clinically. Dictated by: Efren MAGAÑA Interpreted: Henry Mansfield MD on 03/17/2017 at 9: 12 Approved by: Henry Mansfield M.D. on 03/17/2017 at 9:16 X-RAY CHEST ONE VIEW, PORTABLE IMPRESSION: 1. Endotracheal tube tip approximately 2.7 cm from the silvano. Recommend withdrawal by approximately 1 cm. 2. Progressive increase in confluent diffuse bilateral airspace opacities. Findings may reflect increased pulmonary edema/ARDS, pneumonia, or hemorrhage. Dictated by: Kumar Xie M.D. on 03/18/2017 at 8:35 X-RAY CHEST ONE VIEW, PORTABLE. IMPRESSION: 1. Endotracheal tube tip approximately 2.5 cm from the silvano. Recommend withdrawal by approximately 1 cm. 2. Progressive increase in diffuse bilateral airspace opacities likely representing pulmonary edema/ARDS or pneumonia. Dictated by: Kumar Xie M.D. on 03/18/2017 at 14:50 Approved by: Kumar Xie M.D. on 03/18/2017 at 14:56 X-RAY CHEST ONE VIEW, PORTABLE IMPRESSION: No significant change in pulmonary edema and/or diffuse bilateral pneumonia. ARDS cannot be excluded. Dictated by: Efren MAGAÑA Interpreted: Henry Mansfield MD on 03/19/2017 at 9: 54 Approved by: Henry Mansfield M.D. on 03/19/2017 at 14:34 . Cardiac Echo Impressions Echocardiogram 03/12/17 Left ventricular wall thickness is borderline increased. The ejection fraction is estimated to be 60-65%. Left ventricular wall motion is normal. The right ventricle is normal in size and function. Right ventricular systolic pressure is estimated to be 30 mmHg plus the clinically estimated CVP which cannot be estimated on this exam. The left atrial size is normal. Right atrial size is normal. There is no significant valvular heart disease. No overt evidence for endocarditis. The aortic root is normal size. No significant changes since prior study on 02/16/2017. Echocardiogram 02/16/2017 Borderline concentric left ventricular hypertrophy with ejection fraction 60- 65%. Grade I diastolic dysfunction. No valvular abnormality. Comparison is made with the echocardiogram of 11/11/2016, there has been no significant change. . Additional Diagnostics US RENAL SONOGRAM IMPRESSION: No hydronephrosis or large renal masses. The bladder could not be effectively imaged due to the patient's general medical condition. Dictated by: Boris Ferrer M.D. on 03/11/2017 at 8:51 Approved by: Boris Ferrer M.D. on 03/11/2017 at 8:53 [facility] 14:32:05 pH_7.378 pCO2_19.1 pO2_94.6 HCO3_11.3 [facility] 05:22:11 pH 7.445 pCO2 35.5 pO2 86.5 HCO3 24.4 FIO2 21.0 PEEP 5.0 [facility] 04:41:00 pH 7.418 pCO2 37.4 pO2 67.5 HCO3 23.7 FIO2 21.0 PEEP 10.0 [facility] 14:06:15 pH 7.488 pCO2 34.3 pO2 143 HCO3 26.1 FIO2 100.0 [facility] 06:55:00 pH 7.418 pCO2 39.6 pO2 52.8 HCO3 25.1 FIO2 100.0 CPAP 15.0 PEEP 8.0 [facility] 11:14:21 pH 7.440 pCO2 40.2 pO2 87.0 HCO3 27.3 FIO2 80.0 PEEP 10.0 [facility] 04:48:00 pH 7.408 pCO2 44.7 pO2 60.7 HCO3 27.7 FIO2 90.0 PEEP 10.0 Plan Impression Impression #1 acute tubular necrosis #2 sepsis #3 hepatorenal syndrome Recommendations #1 on dialysis for today and most likely have her scheduled tomorrow. Once again her prognosis is quite poor. I have discussed this with the family. Neymar May DO Mar 21, 2017 11:10
--- NOTE | 2017-03-21 12:04 | PCM.PNMED ---
Subjective Date of Service Mar 21, 2017 Subjective Patient remains intubated and sedated, unable to participate in interaction in any meaningful way. One of patient's children at the bedside, the grim nature of the patient's prognosis was explained, the daughter relates that some of her 11 children understand this and wish to proceed to comfort care, however the eldest daughter Selina who is primary decision maker has been hitherto steadfast in her desire for aggressive continued care. Palliative care meeting is tentatively set for tomorrow to discuss goals of care. Overnight sedation and intensity of respiratory support were attempted to be weaned without success as patient desaturated. Comprehensive ROS cannot be obtained in this intubated and sedated patient. Exam Vital Signs Vital Sign - Last Date Time Temp Pulse Resp B/P Pulse Ox O2 Delivery O2 Flow Rate FiO2 03/21/17 08:19 Ventilator 03/21/17 08:00 36.8 82 20 126/35 99 90 03/17/17 20:26 15.00 Intake and Output 03/20/17 03/20/17 03/21/17 Cumulative From/Thru 15:00 23:00 07:00 03/11/17 06:07 - 03/21/17 05:38 Intake Total 402 ml 831 ml 68410 ml Output Total 3100 ml 80 ml 27651 ml Balance -2698 ml 751 ml -2207 ml Intake Oral 0 ml 0 ml IV Total 402 ml 353 ml 23948 ml TPN/PPN 478 ml 2091 ml Packed Cells 961 ml Output Urine Total 0 ml 0 ml 575 ml Stool Total 100 ml 80 ml 982 ml Urine/Stool Mix 0 ml 50 ml Gastric Drainage Total 450 ml Ultrafiltrate 3000 ml 45758 ml # Bowel Movements 2 Exam Gen: Intubated and sedated chronically ill appearing elderly woman Neck: supple, no JVD, no lymphadenopathy, IJ line in place HEENT: pupils minimally reactive to light, does not motion track, no scleral icterus CV: RRR, 2/6 systolic murmur, no rubs or gallops Resp: Diffuse expiratory wheezing, ventilator breath sounds, no rales or rhonchi Abd: soft, no organomegaly, hypoactive bowel sounds Extr: Diffuse ecchymosis, mild edema in all four extremities significantly improved, no cyanosis or clubbing Neuro: Difficult to assess in intubated sedated patient, no discernible response to external stimuli, does grimace with oral care IVs and Medications IV Fluids 600 ml NS delivered with IV meds Medications Reviewed: Medications were reviewed in detail Lab and Diagnostics Item Value Date Time Red Blood Count 2.54 mil/mm3 L 03/21/17534 Mean Corpuscular Volume 92.9 fL 03/21/17534 Mean Corpuscular Hemoglobin 29.9 pg 03/21/17534 Mean Corpuscular Hemoglobin Concent 32.2 % 03/21/17534 Red Cell Distribution Width 17.4 % H 03/21/17 05 Neutrophils (%) (Auto) 86.6 % H 03/21/17534 Lymphocytes (%) (Auto) 5.1 % L 03/21/17534 Monocytes (%) (Auto) 4.2 % 03/21/17534 Eosinophils (%) (Auto) 3.5 % 03/21/17534 Basophils (%) (Auto) 0.2 % 03/21/17534 Estimat Glomerular Filtration Rate 27 mL/min 03/21/1735 Lactic Acid Level 2.4 mmol/L H 03/21/1735 Calcium Level 8.2 mg/dL L 03/21/17534 Phosphorus Level 1.9 mg/dL L 03/21/17534 Magnesium Level 1.4 mg/dL L 03/21/1735 Total Bilirubin 5.7 mg/dL H 03/21/17 0535 Aspartate Amino Transf (AST/SGOT) 44 U/L 03/21/17534 Alanine Aminotransferase (ALT/SGPT) 14 U/L 03/21/17534 Alkaline Phosphatase 176 U/L H 03/21/17 0535 Total Protein 5.0 g/dL L 03/21/17 0535 Albumin 2.6 g/dL L 03/21/17 05 Prealbumin 4 mg/dL L 03/21/17534 Procalcitonin 17.05 ng/mL H 03/21/17 05 Result Diagram: 03/21/1753403/21/17534 Microbiology Item Value Date Time Adenovirus DNA (PCR) - Final Complete 03/12/17 1234 Nasopharangeal Not Detected Blood Culture Received 03/12/17 0848 Blood Aerobic And Anaerobic Bottle Pending Sputum Quality Screen - Final Resulted 7/20/17 2010 Trachea MRSA (PCR) - Final Complete 03/11/17 1600 Nose Blood Culture - Preliminary Resulted 03/11/17 0703 Blood Aerobic And Anaerobic Bottle Strep Agalactiae - (Group B) Streptococcus pneumoniae Ag Screen - Final Complete 03/11/17 0620 Urine,Random Blood Culture - Preliminary Resulted 03/11/17 0620 Blood Aerobic And Anaerobic Bottle Strep Agalactiae - (Group B) X-Rays, CTs and MRIs X-RAY CHEST ONE VIEW, PORTABLE IMPRESSION: Bibasilar atelectasis. Recommend an upright PA and lateral chest radiograph performed in the radiology when the patient is able. Dictated by: Boris Ferrer M.D. on 03/11/2017 at 7:45 Approved by: Boris Ferrer M.D. on 03/11/2017 at 7:47 CT BRAIN WITHOUT CONTRAST IMPRESSION: 1. No acute intracranial abnormalities. 2. Cerebral volume loss and chronic microvascular ischemic changes. No significant discrepancy with the manager night radiology preliminary report. Dictated by: Frida Vega M.D. on 03/12/2017 at 7:39 Approved by: Frida Vega M.D. on 03/12/2017 at 7:41 CT CHEST, ABDOMEN AND PELVIS WITHOUT CONTRAST IMPRESSION: 1. Bilateral lower lobe infiltrates and consolidations consistent with pneumonia. 2. Cirrhotic liver. 3. Splenomegaly and large venous collaterals in upper abdomen consistent with portal hypertension. 4. A small amount of ascites. Dictated by: Frida Vega M.D. on 03/12/2017 at 8:54 Approved by: Frida Vega M.D. on 03/12/2017 at 9:05 X-RAY PICC LINE PLACEMENT BY NURSE IMPRESSION: Tip of PICC lies within the atriocaval junction. Dictated by: Faith Bojorquez MD, PhD on 03/12/2017 at 18:47 Approved by: Faith Bojorquez MD, PhD on 03/12/2017 at 18:48 X-RAY CHEST ONE VIEW, PORTABLE. IMPRESSION: 1. Endotracheal tube tip approximately 2.5 cm from the silvano. Recommend withdrawal by approximately 1 cm. 2. Progressive increase in diffuse bilateral airspace opacities likely representing pulmonary edema/ARDS or pneumonia. Dictated by: Kumar Xie M.D. on 03/18/2017 at 14:50 Approved by: Kumar Xie M.D. on 03/18/2017 at 14:56 X-RAY CHEST ONE VIEW, PORTABLE IMPRESSION: No significant change in pulmonary edema and/or diffuse bilateral pneumonia. ARDS cannot be excluded. Dictated by: Efren White [facility] Interpreted: Henry Mansfield MD on 03/19/2017 at 9: 54 Approved by: Henry Mansfield M.D. on 03/19/2017 at 14:34 . Cardiac Echo Impressions Echocardiogram 03/12/17 Left ventricular wall thickness is borderline increased. The ejection fraction is estimated to be 60-65%. Left ventricular wall motion is normal. The right ventricle is normal in size and function. Right ventricular systolic pressure is estimated to be 30 mmHg plus the clinically estimated CVP which cannot be estimated on this exam. The left atrial size is normal. Right atrial size is normal. There is no significant valvular heart disease. No overt evidence for endocarditis. The aortic root is normal size. No significant changes since prior study on 02/16/2017. Echocardiogram 02/16/2017 Borderline concentric left ventricular hypertrophy with ejection fraction 60- 65%. Grade I diastolic dysfunction. No valvular abnormality. Comparison is made with the echocardiogram of 11/11/2016, there has been no significant change. . Additional Diagnostics US RENAL SONOGRAM IMPRESSION: No hydronephrosis or large renal masses. The bladder could not be effectively imaged due to the patient's general medical condition. Dictated by: Boris Ferrer M.D. on 03/11/2017 at 8:51 Approved by: Boris Ferrer M.D. on 03/11/2017 at 8:53 . Assessment & Plan Ms. Shania To is a 62 year old lady here due to hepatic encephalopathy, non alcoholic steatoHepatits, Acute renal failure, and Insulin dependent Diabetes mellitus requiring emergent hemo-dialysis and lactulose treatments. Patient in multi-organ system failure with grim prognosis, will attempt to have a discussion with family in conjunction with palliative care in regards to goals of care. Encephalopathy, Present on admission. Active. - Initially Secondary to endstage liver cirrhosis/MOSHER and high ammonia levels. - History of Grade 2 esophageal varicies (August), Portal htn gastropathy. - Ammonia 307 initially. since trending to normal - Lactulose at 200 mg rectally Q4H with rectal balloon 30-[address] mins. [address]MS tube in place. - Patient has been receiving daily dialysis and should continue dialysis until her fluid status improves. Severe Sepsis, not present on admission. Improved. Initially Met SIRS criteria with; Tachycardia, tachypnea and Fever. Lactic acid initially elevated returned to normal levels. - Likely secondary to bacteremia initially treated with penicillin, currently being treated with IV Zosyn. - No fevers, - 03/11 Blood cultures x4: Positive for Strep agalactiae, 03/12 cultures 4: No growth, 03/17 blood cultures 2 no growth, 03/18 blood cultures 4: No growth - 03/11 MRSA PCR negative, 03/18 MRSA PCR negative - PICC placed for nicardipine use, blood pressures low but has been maintained stable with use of nicardipine Bacteremia, present on admission, Active Initially 11/24 positive blood cultures for Strep agalactiae. - 03/12 Switched from Ceftriaxone to Penicillin per ID recommendation. - 03/17 switched from penicillin to Zosyn for broader coverage of possible aspiration pneumonia - no fevers, tachycardia, patient on vent Ventilator Dependent Respiratory Failure, not present on admission, worsening - 03/11 patient required intubation for urgent line placement for dialysis Sedated on propofol and fentanyl, this was DC on 03/14 the patient has remained partially obtunded since that time. - 03/18 patient was found to be in acute respiratory distress as noted by ABG with PO2 of 52, she was subsequently reintubated at that time. Fentanyl and Ativan were required to control the patient's breathing on the vent. - Will defer to ICU team for ventilator management. Acute on Chronic Normocytic Anemia, Present on admission. Improving - Hgb 9.5 initially, went down to 6.8, Required 3 units PRBC with improvement to 9.2. blood counts continue to slowly trend down. Source of blood loss currently unknown. - If Hgb less than 8.0 consider transfusion PRBC at that time. - Continue to monitor and transfuse as needed Acute Renal Failure, Present on admission. Active - Initially thought to be 2nd to pre-renal azotemia. - Creatinine initially 5.4, today 3.86, baseline 1.3. BUN initially 102 - Monitor I/O, Maya in place. - Nephrology consulted, and following - Hemodialysis done daily since 03/11/17 - Patient did not receive hemodialysis on 03/17, patient has received daily dialysis since that time. Acute Hyperkalemia, Present on admission. Resolved - Secondary to renal failure. EKG reviewed, with no T wave abnormalities. NSR. - Hemodilaysis done daily since 03/11/17 - Patient did not receive hemodialysis on 03/17, no major changes in potassium noted. Mixed Anion Gap Metabolic Acidosis and alkalosis and Respiratory Alkalosis. Present on admission. Active - ABGs daily until respiratory status improves - Will provide mechanical ventilation as required - We will defer to ICU team for ventilator management. Grade 1 Diastolic Heart failure, chronic. Present on admission. Active. - With pulmonary hypertension. - Echo 03/12/17 and 02/16 as above. Insulin Using Diabetes Mellitus, Present on admission. Active. HgA1C 5.9 - Increase home Lantus dose from 10 units to 30 units QHS. - Medium dose correctional scale insulin as patient is currently only on TPN Chronic Thrombocytopenia. Present on admission. Active. - Platelet counts remain stable. - Likely Splenic sequestration. - Monitor Elevated Troponin of uncertain significance. Chronic, present on admission. Stable - Elevated tropes - 0.166, with Q6 H trend. No EKG changes. - Previous tropoinins elevated. - Stress test 02/16/17 showed no ischemia. - Echocardiogram repeat on 03/12 shows "Left ventricular wall thickness is borderline increased. The ejection fraction is estimated to be 60-65%. No significant changes since prior study on 02/16/2017." Morbid Obesity. - BMI 41.1 Severe protein nutrition, present on admission, active. - Patient has received nothing by mouth for 6 days - TPN initiated 03/17 - Continue to monitor nutritional status. Hypertension, chronic. - Continue home meds when appropriate. Subclinical Hypothyroidism,acute on chronic. - Continue home Synthroid. Bowel regimen Senna and MiraLAX scheduled and PRN. Zofran when necessary for nausea and vomiting. SubQ heparin held for now due to hepatic coagulopathy. SCDs in place. Disposition: As patient required repeat intubation, prognosis guarded. Possibility of expiration in the hospital is likely at this point. Discussion with family about the patient's imminent demise and the possibility of compassionate extubation will likely take place tomorrow in conjunction with palliative care. Pain Evaluation: Adequate Pain Control VTE Mechanical Devices: Intermittant Pneumatic CD Resuscitation Status: CPR: Attempt Resuscitation Attending Statement The patient was seen and examined together with Dr. Ferguson on 03/21/17 and I agree with the history, exam and plan as outlined in the note above. Escobar Ferguson DO Mar 21, 2017 12:04 Mayra Glynn DO Mar 21, 2017 17:24 Escobar Ferguson DO Mar 21, 2017 12:04 Chronic Thrombocytopenia. Present on admission. Active. - Platelet counts remain stable. - Likely Splenic sequestration. - Monitor Demand Ischemia, with elevated Troponins. Chronic, present on admission. Active. - Elevated tropes - 0.166, with Q6 H trend. No EKG changes. - Previous tropoinins elevated. - Stress test 02/16/17 showed no ischemia. - Echocardiogram repeat on 03/12 shows "Left ventricular wall thickness is borderline increased. The ejection fraction is estimated to be 60-65%. No significant changes since prior study on 02/16/2017." Morbid Obesity. - BMI 41.1 Severe protein nutrition, present on admission, active. - Patient has received nothing by mouth for 6 days - TPN initiated 03/17 - Continue to monitor nutritional status. Hypertension, chronic. - Continue home meds when appropriate. Subclinical Hypothyroidism,acute on chronic. - Continue home Synthroid. Bowel regimen Senna and MiraLAX scheduled and PRN. Zofran when necessary for nausea and vomiting. SubQ heparin held for now. SCDs in place. Disposition: As patient required repeat intubation, prognosis guarded. Possibility of expiration in the hospital is likely at this point. More discussion was held with the family today about the patient's prognosis some of the children are accepting the fact that the patient is declining and one daughter (Sophia) stated that their mother would not want to live on machines and sustained in this manner and that the best thing would be to extubate the patient. She stated that she will continue to talk with the family and let us know if they are all in agreement with a compassionate extubation. The patient is steadily declining and could possibly make that decision for us. We will continue to discuss with the family for further treatment plans and goals of care. VTE Mechanical Devices: Intermittant Pneumatic CD Resuscitation Status: CPR: Attempt Resuscitation Escobar Ferguson DO Mar 21, 2017 12:04
--- NOTE | 2017-03-21 14:14 | PROG NOTE ---
[address] [address] PROGRESS NOTE PATIENT: NILESH SPRINGER : 1955 MR#: [id number] ADMIT: 03/11/2017 JOB ID: [id number] DATE: 03/21/2017 FOLLOWUP VENTILATOR MANAGEMENT NOTE: PROBLEM LIST: 1. Acute hypoxemic hypercarbic respiratory failure. 2. Cirrhosis. 3. Hepatorenal syndrome. 4. Morbid obesity. 5. Streptococcus agalactiae bacteremia. SUBJECTIVE: None. OBJECTIVE: Temperature 37.1. Pulse 78-82, respiratory rate 20 with ventilator set at 18, blood pressure 140/43, O2 sat on FiO2 of 80%, PEEP of 15 is 98%. General appearance: Sedated on the ventilator. Chest: Fairly good breath sounds bilaterally. Clear anteriorly. Heart: Regular rhythm. Heart tones normal. Abdomen soft. Quiet. Extremities: 3+ pretibial edema. LABORATORY: Shows a white count of 15,400 with moderate neutrophilia. Hemoglobin 7.6, down from 8.8 yesterday. Platelet count 48,000 and unchanged. Sodium 140, potassium 4.3, chloride 101, CO2 is 24. BUN 30 and stable. Creatinine 2.53, down from 3.27 yesterday. Lactic acid mildly elevated, 2.4. Calcium 8.2. Albumin 2.6. Blood cultures of March 18, 2017, showed no growth at 48 hours. Current ventilator settings on pressure control of 19, FiO2 of 0.8, PEEP of 15, respiratory rate set at 18 with the breathing 19-20. Peak inspiratory pressure 32. The patient receiving breaths in the mid 400s with pressure control 19. Loops look relatively normal. ASSESSMENT: Oxygenation is holding its own. Was doing a bit better but then with interventions O2 sat transiently decreased. Back rising, initially requiring an increase in the FiO2 to 0.9, now back down to her usual value of 0.8. Chest x-ray shows some increased pulmonary parenchymal markings when compared to yesterday's film but overall improved since past three or four days. ASSESSMENT: Acute hypoxemic hypercarbic respiratory failure. Doing reasonably well given the severity of her condition. Unclear whether dialysis is to be given today. Family thinks it is not. In any case, we are doing acceptable with the ventilatory status without any worsening of her condition over the past 24 hours. PLAN: 1. Continue current regimen. 2. Venous gases in a.m.
--- NOTE | 2017-03-21 15:49 | PCM.CONPHA ---
Subjective Altered mental status Objective Vital Signs Date Time Temp Pulse Resp B/P Pulse Ox O2 Delivery O2 Flow Rate FiO2 03/21/17 15:22 Ventilator 03/21/17 12:24 37.1 82 140/43 98 Mechanical Ventilator 80 03/21/17 12:01 Ventilator 03/21/17 12:00 78 136/40 97 80 03/21/17 08:19 Ventilator 03/21/17 08:00 36.8 82 20 126/35 99 Mechanical Ventilator 90 03/21/17 07:55 78 126/35 95 80 03/21/17 04:45 82 132/45 95 80 03/21/17 04:01 83 03/21/17 04:01 37.2 82 18 113/37 96 Mechanical Ventilator 80 03/21/17 00:00 36.9 85 18 149/43 95 Mechanical Ventilator 80 03/21/17 00:00 85 03/20/17 23:52 86 143/43 95 80 03/20/17 20:29 84 138/42 100 80 03/20/17 19:37 Ventilator 03/20/17 19:32 80 03/20/17 19:32 36.7 80 18 134/47 99 Mechanical Ventilator 90 03/20/17 18:00 86 90 03/20/17 16:00 37.0 80 18 105/52 96 Mechanical Ventilator 90 03/20/17 16:00 81 106/39 99 75 03/20/17 16:00 Ventilator 03/20/17 16:00 80 Intake and Output 03/19/17 03/20/17 03/21/17 00:00 00:00 00:00 Intake Total 1076 ml 1569 ml 1306 ml Output Total 3015 ml 3066 ml 3180 ml Balance -1939 ml -1497 ml -1874 ml Weight (Kilograms): 93.600 Test 03/11/17 06:20 03/11/17 08:01 03/11/17 17:50 03/11/17 19:20 Hemoglobin A1c 5.9% (4.8-5.6) Osmolality 311 (275-300) Urine Legionella pneumophilia Ag Negative (Negative) Urine Color Dark yellow (YELLOW) Urine Appearance Hazy (CLEAR,HAZY) Urine pH 5.0 (5.0-8.0) Urine Specific [place] 1.016 (1.003-1.035) Urine Protein 100mg/dL (NEG,TRACE) Urine Glucose (UA) Negativemg/dL (NEGATIVE) Urine Ketones Negativemg/dL (NEGATIVE) Urine Occult Blood Large (NEGATIVE) Urine Nitrite Negative (NEGATIVE) Urine Bilirubin Negative (NEGATIVE) Urine Urobilinogen Normalmg/dL (NORMAL) Urine Leukocyte Esterase Negative (NEGATIVE) Urine RBC 11-50/hpf (0-2) Urine WBC 0-5/hpf (0-5) Urine Epithelial Cells Occasional/hpf (NONE-MOD) Urine Crystals Oxalic acid crystals (NONE Urine Bacteria Few/hpf (NONE-FEW) Urine Hyaline Casts Occasional/lpf (NONE) Urine Granular Casts None seen (NONE SEEN) Urine Waxy Casts None seen (NONE SEEN) Urine Red Blood Cell Casts Rare (NONE SEEN) Urine White Blood Cell Casts None seen (NONE SEEN) Urine Mucus None seen (None Seen) Urine Trichomonas None seen (NONE SEEN) Urine Yeast None (NONE SEEN) Urinalysis Comment None Urine Culture Reflexed Not indicated Ethylene Glycol None detectedmg/dL Troponin T 0.193ug/L (0.0-0.011) Test 03/11/17 22:28 03/12/17 02:05 03/12/17 04:30 03/13/17 12:07 Haptoglobin < 10mg/dL (34-200) Hepatitis B Surface Antigen Negative (Negative) Hepatitis B Surface Antibody Non reactive (.) Hepatitis B Core Total Antibody Negative (Negative) Hepatitis C Antibody <0.1s/co ratio (0.0-0.9) Band Neutrophils % 13% (1-5) Lipase 139U/L (13-60) Cortisol 33.1ug/dL (.) Hematology Comments Prothrombin Time 13.3sec (8.1-12.5) Prothromb Time International Ratio 1.24ratio Activated Partial Thromboplast Time 45.3sec (22.8-33.0) Fibrinogen 197mg/dL (157-380) D-Dimer 5.38mg/L FEU (<0.50) Lactate Dehydrogenase 384U/L (100-190) Urine Osmolality 321mOs/kH2O (250-1200) Urine Random Creatinine 136mg/dL (15-278) Urine Random Sodium 23mEq/L Urine Urea Nitrogen 96mg/dL (Not Estab.) Test 03/14/17 04:45 03/17/17 10:07 03/18/17 10:20 03/19/17 04:15 Cholesterol Level 106mg/dL (100-199) LDL Cholesterol, Calculated 62.000mg/dL (0-99) VLDL Cholesterol 32.000mg/dL HDL Cholesterol 12mg/dL (>39) Cholesterol/HDL Ratio 8.83 (0.0-4.4) Hold Mcdonough Top Tube Received (Received) Ammonia 45ug/dL (18-53) Thyroid Stimulating Hormone (TSH) 4.280uIU/mL (0.450-4.500) Free Thyroxine 0.63ng/dL (0.82-1.77) Test 03/20/17 05:15 03/21/17 05:35 Triglycerides Level 109mg/dL (0-149) White Blood Count 15.4th/mm3 (3.8-10.1) Red Blood Count 2.54mil/mm3 (3.90-5.20) Hemoglobin 7.6g/dL (12.0-15.6) Hematocrit 23.6% (35.0-46.0) Mean Corpuscular Volume 92.9fL (81-100) Mean Corpuscular Hemoglobin 29.9pg (27.0-35.0) Mean Corpuscular Hemoglobin Concent 32.2% (32.0-37.0) Red Cell Distribution Width 17.4% (12.3-15.4) Platelet Count 48bil/L (150-400) Neutrophils (%) (Auto) 86.6% (40-74) Lymphocytes (%) (Auto) 5.1% (14-46) Monocytes (%) (Auto) 4.2% (4-12) Eosinophils (%) (Auto) 3.5% (0-5) Basophils (%) (Auto) 0.2% (0-3) Sodium Level 140mEq/L (134-144) Potassium Level 4.3mEq/L (3.5-5.2) Chloride Level 101mEq/L (97-108) Carbon Dioxide Level 24mmol/L (18-29) Blood Urea Nitrogen 30mg/dL (8-27) Creatinine 2.53mg/dL (0.57-1.00) Estimat Glomerular Filtration Rate 27mL/min (>59) Glucose Level 229mg/dL (60-99) Lactic Acid Level 2.4mmol/L (0.4-2.0) Calcium Level 8.2mg/dL (8.5-10.1) Phosphorus Level 1.9mg/dL (2.5-4.9) Magnesium Level 1.4mg/dL (1.6-2.6) Total Bilirubin 5.7mg/dL (0.0-1.2) Aspartate Amino Transf (AST/SGOT) 44U/L (0-50) Alanine Aminotransferase (ALT/SGPT) 14U/L (0-32) Alkaline Phosphatase 176U/L (25-165) Total Protein 5.0g/dL (6.4-8.4) Albumin 2.6g/dL (3.4-5.0) Prealbumin 4mg/dL (20-40) Procalcitonin 17.05ng/mL (0.00-0.08) Assessment/Plan Assessment/Plan PARENTERAL NUTRITION ORDERS 01 19- Standard Hang Time: 2100 Substrates Total kcal: 873 AMINO ACIDS 70 g DEXTROSE 145 g Total Volume (mL): 1000 LIPIDS 10 g Sterile Water for Injection mL To Infuse Over (hrs): 24 Total Volume 1000 mL At at a rate of (mL/hr): 42 Additives Sodium Chloride 20 mEq "typical" daily requirements Sodium Acetate 10 mEq Sodium 50-120mEq Potassium Chloride 30 mEq Potassium 60-120mEq Potassium Phosphate 25 mEq Phosphate 20-40mEq Calcium Gluconate 4 mEq Magnesium 8-32mEq Magnesium Sulfate 8 mEq Calcium 9-22mEq Acetate* 80-120mEq Chloride* 80-120mEq Regular Insulin units *Depending on acid-base status Famotidine mg Multivitamins 1 std dose Insulin Regimen Trace Elements 1 std dose none Thiamine 100 mg Regular Low Intensity Subcut Folic Acid 1 mg Regular Medium Intensity Subcut Ascorbic Acid mg Regular High Intensity Subcut Regular Insulin Infusion Other: Special Instructions: To be infused via central line only. For delay or inturruption of TPN contact the pharmacist for alternative replacement solution. Signature Date: NILESH SPRINGER [address] [facility] Albert Richards Pharm.D Mar 21, 2017 15:49
--- NOTE | 2017-03-21 18:30 | NUR ---
Respiratory/sedation/metabolic Continues on pressure control with 80% fi02 and 15 of PEEP. Small to moderate amounts of thick pete secretions with ET suction. Sp02 maintained in low 90s throughout shift. Fentanyl and ativan sedation continued. RASS -2. SR per playground monitor. MAP > 60. Norepi infusing at 0.125mcg/kg/min. Afebrile. Blood glucose elevated, > 200s. TPN infusing as ordered. Will continue to monitor.
[2017-03-21] MEDS: TPN Per Pharmacist XX SCH (20:20)
[2017-03-21] MEDS: Norepineph 8,000 mCg/250 mL NS 8,000 MCG in IV Premix 1 EACH IV SCH (20:21)
[2017-03-21] MEDS: Total Parenteral Nutrition 1 BAG IV SCH (20:21)
[2017-03-21] MEDS: Insulin GLARgine 100 Unit/mL Syringe SUBQ SCH (20:36)
[2017-03-22] VITALS (12 sets, daily range): BP systolic 99–148; BP diastolic 36–47; PULSE 83–91; RESP 18–26; O2SAT 90–98
[2017-03-22] MEDS: Lactulose 20 Gm/30 mL 30 mL Syrup TUBE SCH ×2 (00:34→08:46)
[2017-03-22] MEDS: Chlorhexidine 0.12% 15 mL Oral Solution MT SCH ×6 (00:34→20:16)
[2017-03-22] MEDS: Insulin Human REGular 300 Unit/3 mL Inj SUBQ SCH ×2 (02:37→08:47)
[2017-03-22] MEDS: Cisatracurium Inj 200,000 MCG in 0.9% Sodium Chloride-Pha MIX 100 ML IV SCH (04:12)
--- NOTE | 2017-03-22 04:38 | ABG ---
DateTimeAnalyzed 04:31:00 -_ pH ____7.307 - pCO2 ___49.5__ -mmHg pO2 ___43.4__ -mmHg HCO3- ___24.0__ -mmol/L ABE ___-1.7__ -mmol/L tHb ____7.8__ -g/dL O2Hb ___72.4__ -% COHb ____2.6__ -% MetHb ____0.9__ -% sO2 ___75.0__ -% FIO2 ___80.0__ -% PEEP ___15.0__ -cmH2O Vt __360.0__ -L Drawn By RN - Oxygen Device 2 19 PRESSURE CONTROL - Date/Time Notified____ 04:37:00 -_ Spontaneous_RR ___18.0__ -b/min Oxygen Device 1 VENTILATOR - Notified By BLF - Notified Whom KYLE PRASAD RN - B 764 -mmHg tO2 ____8.0__ -Vol% OrderingPhysicianInitials bak - Enio test N/A -
[2017-03-22 04:48] LABS: BASOPHILS % (AUTO) 0.2 % (0-3); EOSINOPHILS % (AUTO) 4.3 % (0-5); Mean Corpuscular Hemoglobin 30.1 pg (27.0-35.0); Mean Corpuscular Volume 92.2 fL (81-100); NEUTROPHILS % (AUTO) 78.8 % (40-74); Platelet Count 77 bil/L (150-400)
[2017-03-22 05:02] LABS: INR 1.24 ratio
[2017-03-22 05:19] LABS: Magnesium 1.6 mg/dL (1.6-2.6); Phosphorus 2.9 mg/dL (2.5-4.9)
--- NOTE | 2017-03-22 06:20 | NUR ---
Respiratory Pt remain on vent support, settings unchanged through the night, sp02 93-95%, unable to wean off levophed gtt, map hovering from 55-65, anuric, RASS -2 to -3 to ativan and fentanyl gtt sedation, remain off restraints.
[2017-03-22] MEDS ORDERED: Micafungin Inj 150 MG in 0.9% Sodium Chloride 100 ML IV SCH (08:30)
[2017-03-22] MEDS ORDERED: Micafungin Inj 150 MG in Dextrose 5% 100 ML IV SCH (08:32)
[2017-03-22] MEDS: Pantoprazole 4 mg/mL 10 mL Inj IVPUSH SCH (08:43)
[2017-03-22] MEDS: Piperacillin-Tazo 3.375 Gm Inj 3.375 GM in Dextrose 5% Minibag Plus 50 ML IV SCH (08:46)
[2017-03-22] MEDS: Levothyroxine 100 mCg/5 mL Inj IV SCH (08:46)
[2017-03-22] MEDS: TPN Per Pharmacist XX SCH (08:47)
--- NOTE | 2017-03-22 08:58 | PCM.PNSURG ---
Subjective Date of Service: Mar 22, 2017 Date of Service: Mar 22, 2017 Visit Information: Reason for Visit Ams,Arf Surgery/Surgery Date Post-Op Day # Date of Admission: Mar 11, 2017 at 08:52 Hospital Day # Subjective: Patient intubated and sedated. Plan for discussion with the family, primary team , and palliative care about goals of care and possibility of transitioning to comfort care. Objective Vital Sign- Last 8 Hours Date Time Temp Pulse Resp B/P Pulse Ox O2 Delivery O2 Flow Rate FiO2 03/22/17 04:11 87 03/22/17 04:11 37.2 85 21 107/39 96 Mechanical Ventilator 80 03/22/17 03:53 86 99/44 95 80 Intake and Output- Last 8 Hour 03/22/17 Cumulative From/Thru 07:00 03/11/17 06:07 - 03/22/17 06:16 Intake Total 840 ml 89367 ml Output Total 105 ml 39552 ml Balance 735 ml -461 ml Intake Oral 0 ml IV Total 370 ml 56562 ml TPN/PPN 470 ml 3114 ml Packed Cells 961 ml Output Urine Total 5 ml 580 ml Stool Total 100 ml 1232 ml Urine/Stool Mix 50 ml Gastric Drainage Total 450 ml Ultrafiltrate 60105 ml # Bowel Movements 2 General: Other (Intubated and sedated) Neck: Other (IJ in place) Lungs: Wheezes, Other (Intubated) Heart: Regular Rate/Rhythm, Murmur (2/6 systolic) Abdomen: Soft, Other (hypoactive bowel sounds) Extremities: Distal Pulses Palpable, Warm, Edema Localized Neuro: Other (Intubated and sedated) Result Diagram: 03/22/17 0430 03/22/17 0430 Assessment & Plan Impression This is a unfortunate 62-year-old Italian-speaking only female currently intubated with a history of cirrhosis presumed due to MOSHER, MELD score of 23 as of March 12, 2017, complicated with portal hypertensive, splenomegaly, currently with history of status post cholecystectomy, diabetestype 2, chronic kidney disease stage 3, now currently on hemodialysis from hepatorenal syndrome, admitted with altered mental status, when she was found to have bacteremia, pneumonia, renal failure on hemodialysis and hepatic encephalopathy. I have had a long discussion on 03/20 with three of the family members in which one was able to speak Bahamian. I have informed them of the poor prognosis of the patient at this point in time. I have also recommended that the family members get together and talk to each other in terms of goals of care for this patient. I think a palliative care/ethics consultation would be worthwhile for this patient given the multiorgan failure of this patient currently in the ICU setting. In regard to GI, I agree with lactulose rectally at this point in time given cirrhosis and HE. xifaxan 550mg po would be part of the standard of care for hepatic encephalopathy in addition to lactulose for this hospitalized pt if the patient was able to take this by mouth. CT chest/abdomen/pelvis no contrast 03/11/2017- IMPRESSION: 1. Bilateral lower lobe infiltrates and consolidations consistent with pneumonia. 2. Cirrhotic liver. 3. Splenomegaly and large venous collaterals in upper abdomen consistent with portal hypertension. 4. A small amount of ascites. RECOMMENDATIONS: 1. Recommend palliative care/ethics consultation. 2. Continue lactulose per rectal 20 g pr q.8- goal of 3bm/day. 3. Serial CMPs, PT and INR daily Will continue to follow. Problems: Resuscitation Status: CPR: Attempt Resuscitation SHANTA GARAY DO Mar 22, 2017 08:58
--- NOTE | 2017-03-22 09:03 | PROG NOTE ---
[address] [address] PROGRESS NOTE PATIENT: NILESH SPRINGER : 1955 MR#: [id number] ADMIT: 03/11/2017 JOB ID: [id number] DATE: 03/22/2017 REASON FOR FOLLOWUP: Streptococcal septic shock with underlying hepatic failure and now renal failure. INTERVAL HISTORY: I saw this patient nine days ago just as I was preparing to leave on vacation and I am returning today. At the time I initially saw the patient, she was critically ill with underlying baseline hepatic failure and superimposed renal failure as well as streptococcal septic shock and ventilator dependent respiratory failure. We had switched the patient to penicillin on that date as the optimal agent for her beta strep. Subsequent to that time the patient improved somewhat and was extubated only to decline once again and require re-intubation. She is currently critically ill and I have discussed this case in detail with the team including the primary team caring for the patient as well as the nursing staff and respiratory therapy at the bedside. Note that the patient has been switched from penicillin to Zosyn because of concerns about possible nosocomial aspiration pneumonia, and she is requiring high inspired oxygen concentrations today as well as norepinephrine to maintain her blood pressure. Her urine output remains dismal and she is dialysis dependent as well as ventilator dependent this morning. PHYSICAL EXAMINATION: Reveals a critically ill woman lying supine in her ICU bed. She is febrile as her temperature at midnight was 37.9 and she is both in hepatic and renal failure and both of these tend to suppress temperature. Her pulse is currently in the 80s, blood pressure 107/39. She is on 80% FiO2 and 15 of PEEP saturating 96%. Her eyes are deeply jaundiced. Nose appears normal. Oral endotracheal tube, orogastric tube in good position. She has a right neck dialysis catheter in place as well as a right upper extremity PICC line. She does not have any NG tube. Her neck is reasonably supple without obvious adenopathy. Her lungs are notable for coarse sounds at both bases with rales and rhonchi. Cardiac tones regular rate and rhythm without a significant murmur, though it is difficult to hear with the patient on the ventilator. Abdomen is soft and nontender with minimal if any ascites today. Maya catheter is present. There is very little clear yellow urine output. The patient's extremities are surprising well perfused despite her norepinephrine at 0.12 mics per kg and no obvious cellulitis or drug rash is noted. LABORATORIES: Include white count which has trended up and down throughout her hospital stay starting off at about 19,000 nine days ago. It is now 14,000, but it has been bouncing around since that time. It did normalize on the during her third hospital day and since then has been persistently elevated. The diff though was 78% segs and not especially left shifted. Her creatinine is 4.33. She has been receiving off and on dialysis throughout her hospital stay. Her liver function tests last done yesterday bilirubin 5.7, alk phos 176, AST and ALT appear normal. Procalcitonin came in at around 14. It has gone as high as 27 and today is 20 so really no clear trend at all with procalcitonin throughout this long hospital stay. No recent urinalysis has been done, the last one 10 days ago did not have pyuria. Hep C has come back negative. Comprehensive review of the micro shows that the initial blood cultures grew group B strep which was exquisitely sensitive to penicillin. She has now received a full 10 days of therapy for that organism. All followup blood cultures as well as a MRSA screen have been negative. No recent sputum sample has been sent. I reviewed today's chest x-ray and compared to prior it shows bilateral hazy infiltrates that would be consistent with fluid overload or CHF. The possibility of a superimposed pneumonia obviously cannot be excluded. IMPRESSION: This unfortunate woman suffers from what would appear to be an impossible collection of problems. She has underlying liver disease with an end-stage liver disease on the basis of nonalcoholic steatohepatitis to that septic shock has been added which started off as a group B strep septic shock, as well as renal failure which continues to require dialysis. Despite the fact the patient has had 10 days of appropriate aggressive care she is no better and arguably worse than when she came. The source of her continued leukocytosis and low-grade fevers and elevated procalcitonin remains unclear to me. We are dressing both her underlying group B strep bacteremia of course with the Zosyn as well as possibility of aspiration pneumonia. At this point, I think a full workup to determine the cause of her fevers is indicated as well as empiric initiation of antifungal therapy in this woman who is now receiving TPN as well as vasopressor agents and has numerous lines in place. RECOMMENDATIONS: 1. Additional diagnostics will include fungal blood cultures x2 with one drawn through the PICC line, stool for C. diff, urinalysis with reflex culture, lipase, and sputum Gram stain and culture via the endotracheal tube. 2. Will continue with Zosyn for the time being and as work horse antibiotic as I am not sure that we have any reason to definitively switch. 3. We will add to this micafungin. Note that micafungin ostially requires an even higher dose in the presence of cirrhosis so we will use 150 once a day to start today. 4. This case discussed in great detail with the team.
--- NOTE | 2017-03-22 09:56 | PCM.CONPAL ---
Date of Service Mar 22, 2017 Date of Hospital Admission: Mar 11, 2017 at 08:52 Date of Palliative Consult: Mar 22, 2017 Requesting Provider: Harvey Haider DO Reason Palliative Care Consult: Goals of Care Discussion Reason for Consultation Palliative Care received verbal order from Dr Ferguson 03/22/17 to assist with goals of care. Patient admitted 03/11/17. Palliative Care has seen patient during previous admissions. Selina Condon (daughter) [phone] Hospital Unit @time of consult: Critical Care (room 2016) Palliative Care Recommendation Summary of palliative recommendations: -Symptom management (Pain/other)- per Hospitalist medical team and the pulmonary mine analyst. -DPOA/Advanced Directives/POLST- per family members, daughter Beth is POA but oldest daughter Selina (with whom the patient lives) is the best contact/has the most information. Apparently, no prior advanced directive or POLST completed. The patient herself is unable to participate in interaction in any meaningful way. The Hospitalist Attending (Luis) Team reports that one of the patient's daughters says one adult child reports that some of the patient's 11 children understand Mrs. To's poor prognosis and wish to proceed to comfort care, however the eldest daughter Selina, who is recognized by the family as the primary decision maker, has been steadfast in her desire for ongoing aggressive care. Attending Team and Palliative Care will meet with family today at 2pm to discuss goals of care. Prognosis: Mrs. To had been followed closely at [facility], and from prior conversations (my partner Dr. Wild on 11/16/16 ) with Mrs. Field's trim die maker, the patient is NOT a transplant candidate. Dr. Lainez spoke to KAYKAY Melendez today before the family meeting, and she reviewed the case with me. -Family/emotional support- excellent family support from multiple family members , though language and financial barriers pose problems. Family Meeting: held today with Dr. Mendez (who is fluent in Persian), Dr. Ferguson (who speaks Persian), and Dr. Lainez. Family members present were all adult children of Mrs. To. They were Karen, Perla, Beth, Trino, Latasha, Selina (the oldest), Li, Dillon and Jina. 1. Dr. Mendez and Marty explained that the patient's situation has deteriorated and neither her liver nor kidneys were working and this leads to fluid overload that causes her body to have edema and ascites. When she is dialysed the fluid is removed and filtered, but her blood pressure drops. BP meds to support her blood pressure in turn, hurt her kidneys and liver. It is a vicious cycle and the doctors can not do anything to break the cycle. In addition, her infection has not improved and she may now have a fungal infection. 2. Dr. Lainez reported to family that all the specialists have put in their written notes that they have done everything medically possible and mother is not improving despite their best efforts. Dr. Lainez also told family that she spoke to KAYKAY Melendez today before the family meeting, and KAYKAY Melendez said she feels there is nothing more that [facility] could recommend to help the patient and agrees that Mrs. To's prognosis is poor, given the current situation, her infection and ongoing, persistent organ failure. 3. Family's questions were answered and then they spent some time alone together to try to decide whether they could agree to stop life support. After a time, the family decided that they could not come to a consensus so they would individually vote and the majority of children's opinion, they would all agree to honor. The majority opinion was to go forward with a compassionate extubation. 4. Family is now in the process of saying good-byes and calling in 2 uncles who are en route. Dr. Lainez coordinated plan with CHELA Campos and the respiratory therapist. Dr. Lainez wrote orders to continue fentanyl infusion, titrating up for comfort and increase ativan to 2mg/hr. She wrote for extubation when family has informed RN that they are ready. We anticipate that pt may within hours of extubation. Patient's trim die maker: Sofia MCCRACKEN/Ph.D. [facility] [address] [place] [address] option 8 (for her nurse Gisela) Problems: Resuscitation Status Resuscitation Status: CPR: Attempt Resuscitation . Advanced Care Planning Address: Code status change, Comfort care Pain: Moderate Symptom management: Dyspnea (intubated, order changed to extubation for comfort ) Pt History History of Present Illness This is a unfortunate 62-year-old Persian-speaking only female currently intubated with a history of cirrhosis presumed due to MOSHER, MELD score of 23 as of March 12, 2017, complicated with portal hypertensive, splenomegaly, currently with history of status post cholecystectomy, diabetes type 2, chronic kidney disease stage 3, now currently on hemodialysis from hepatorenal syndrome, admitted with altered mental status after a day of nausea and vomiting at home. On admission on 03/11, she was found to have bacteremia, pneumonia, renal failure on hemodialysis and hepatic encephalopathy. Hospital Course: Pt has received 12 days of critical care in CCU to treat her underlying hepatorenal failure as well as streptococcal septicemia. She has been ventilatory dependent throughout her hospitalization with a brief period of extubation after which she had to be re-intubated. She needs norepinephrine to sustain her hypotensive blood pressure. She has very poor urine output and is dialysis dependent. She continues to have low grade fevers,an elevated procalcitonin and white count. She will get cultured again today and started on IV micafungin to cover for possible fungemia. Her prognosis is poor given the multi organ failure of this patient and Doctors Lalo (nephrology), Melquiades (ID), Len (Surgery), and Leodan (GI) have stated this in their most recent progress notes and have told members of the family this as individual specialists. Past Medical History Significant PMH Noted: 61-year-old female with history of cirrhosis with ascites secondary to MOSHER (NOT hepatitis C as is documented elsewhere) a. 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 Portal hypertension with leg edema and ascites c. Hypervolemic hypotonic hyponatremia secondary to cirrhosis Insulin dependent type 2 diabetes Hypertension GERD End Stage Liver Disease with Anasarca Depression Surgical History Cholecystectomy Family History no liver disease of other family members Social History At baseline, patient mentating well, able to "Facebook". Patient is further lived at home alone, nonsmoker, nondrinker, her medication is managed by one of her daughters. They report adherence to all medication except lactulose, which she didn't take for 3 days prior to admission. Medications Current Medications: Current Medications Insulin Glargine 30 unit 30 unit HS SUBQ Last administered on 7/30/17at 20:36; Admin Dose 30 UNIT; Start 03/20/17 at 21:00 Norepinephrine 8000 mcg/Premix 250 ml @ 8.94 mls/hr Q24H IV Last administered on 03/21/17 20:21; Admin Dose 12.5 MLS/HR; Start 03/20/17 at 20:55 Micafungin Sodium 150 mg/Sodium Chloride 107.5 ml @ 107.5 mls/ hr Q24 IV; Start 03/22/17 at 08:30; Stop 03/22/17 at 08:34; Status DC Micafungin Sodium/ Dextrose/Water 107.5 ml @ 107.5 mls/ hr Q24 IV; Start at 08:32 Scheduled Amlodipine (Amlodipine) 2.5 Mg Tablet 2.5 MG PO DAILY Fluoxetine (Fluoxetine) 20 Mg Capsule 20 MG PO DAILY Furosemide (Furosemide) 80 Mg Tab 80 MG PO DAILY Insulin Glargine (Lantus U100 Solostar Insulin Pen) 100 Unit/1 Ml Insuln.pen 50 UNIT SUBQ DAILY Lactulose (Lactulose) 20 Gm/30 Ml Solution 20 GM PO DIRECTED take 2-6 times daily with goal of 2-3 bowel movements per day. Levothyroxine (Levothyroxine) 50 Mcg Tablet 50 MCG PO DAILY Spironolactone (Spironolactone) 100 Mg Tablet 100 MG PO DAILY Torsemide (Demadex) 20 Mg Tablet 20 MG PO DAILY Scheduled PRN Tramadol (Ultram) 50 Mg Tablet 50 MG PO Q12H PRN PRN For Mild Pain Objective Findings Exam Vital Sign - Last Date Time Temp Pulse Resp B/P Pulse Ox O2 Delivery O2 Flow Rate FiO2 03/22/17 07:30 85 125/40 92 80 03/22/17 04:11 37.2 21 Mechanical Ventilator 03/17/17 20:26 15.00 Intake and Output 03/21/17 03/21/17 03/22/17 Cumulative From/Thru 15:00 23:00 07:00 03/11/17 06:07 - 03/22/17 06:16 Intake Total 1161 ml 840 ml 94246 ml Output Total 150 ml 105 ml 71303 ml Balance 1011 ml 735 ml -461 ml Intake Oral 0 ml IV Total 608 ml 370 ml 57050 ml TPN/PPN 553 ml 470 ml 3114 ml Packed Cells 961 ml Output Urine Total 5 ml 580 ml Stool Total 150 ml 100 ml 1232 ml Urine/Stool Mix 50 ml Gastric Drainage Total 450 ml Ultrafiltrate 55224 ml # Bowel Movements 2 Objective General: sedated, vented HEENT: Her eyes are deeply jaundiced. Nose appears normal. Oral endotracheal tube, orogastric tube in good position. Neck: +right neck dialysis catheter in place. RUE PICC line. Neck supple. Card: S1,S2, soft systolic murmur. rrr. Resp: Coarse breath sounds at bases with +rales/+rhonchi. She is on 80% FiO2 and 15 of PEEP saturating 96%. Abd: soft, nontender, obese. : +vieyra, scant clear yellow urine. Ext: 2+ edema Skin: no rashes. Lab/Diagnostics Result Diagram: 03/22/17 0430 Time spent Total time 70 minutes; >50% face to face with patient and/or family, providing counselling regarding plans and recommendations, and in care coordination with his/her medical teams. I also spent an additional 60 minutes counseling for advanced care planning with the patient/the patients family/the surrogate decision maker. Sherri Lainez MD Mar 22, 2017 09:56
--- NOTE | 2017-03-22 10:47 | PCM.PNNEPH ---
Subjective Date of Service Mar 22, 2017 Subjective Overall the patient's condition is unchanged. She still is requiring 80% of oxygen and 15 of PEEP for her oxygenation. There were no further urine output being made and her lab has been reviewed. Exam Vital Signs Vital Sign - Last Date Time Temp Pulse Resp B/P Pulse Ox O2 Delivery O2 Flow Rate FiO2 03/22/17 07:30 85 125/40 92 80 03/22/17 04:11 37.2 21 Mechanical Ventilator 03/17/17 20:26 15.00 Intake and Output 03/21/17 03/21/17 03/22/17 Cumulative From/Thru 15:00 23:00 07:00 03/11/17 06:07 - 03/22/17 06:16 Intake Total 1161 ml 840 ml 10233 ml Output Total 150 ml 105 ml 36324 ml Balance 1011 ml 735 ml -461 ml Intake Oral 0 ml IV Total 608 ml 370 ml 82999 ml TPN/PPN 553 ml 470 ml 3114 ml Packed Cells 961 ml Output Urine Total 5 ml 580 ml Stool Total 150 ml 100 ml 1232 ml Urine/Stool Mix 50 ml Gastric Drainage Total 450 ml Ultrafiltrate 61853 ml # Bowel Movements 2 Exam Patient is sedated and on a ventilator. Lungs showed scattered rhonchi in all lung perales. Heart is tachycardic. Abdomen is soft with minimal bowel sounds. There is no tenderness rebound guarding masses or hepatosplenomegaly. Extremities do not show any evidence of any clubbing, cyanosis, or edema. Skin turgor is good. Lab and Diagnostics Result Diagram: 03/22/17 0430 03/22/17 0430 Microbiology Item Value Date Time Adenovirus DNA (PCR) - Final Complete 03/12/17 1234 Nasopharangeal Not Detected Blood Culture Received 03/12/17 0848 Blood Aerobic And Anaerobic Bottle Pending Sputum Quality Screen - Final Resulted 03/11/17 2010 Trachea MRSA (PCR) - Final Complete 03/11/17 1600 Nose Blood Culture - Preliminary Resulted 03/11/17 0703 Blood Aerobic And Anaerobic Bottle Strep Agalactiae - (Group B) Streptococcus pneumoniae Ag Screen - Final Complete 03/11/17 0620 Urine,Random Blood Culture - Preliminary Resulted 03/11/17 0620 Blood Aerobic And Anaerobic Bottle Strep Agalactiae - (Group B) X-Rays, CTs and MRIs X-RAY CHEST ONE VIEW, PORTABLE IMPRESSION: Bibasilar atelectasis. Recommend an upright PA and lateral chest radiograph performed in the radiology when the patient is able. Dictated by: Boris Ferrer M.D. on 03/11/2017 at 7:45 Approved by: Boris Ferrer M.D. on 03/11/2017 at 7:47 CT BRAIN WITHOUT CONTRAST IMPRESSION: 1. No acute intracranial abnormalities. 2. Cerebral volume loss and chronic microvascular ischemic changes. No significant discrepancy with the slot shift supervisor radiology preliminary report. Dictated by: Frida Vega M.D. on 03/12/2017 at 7:39 Approved by: Frida Vega M.D. on 03/12/2017 at 7:41 CT CHEST, ABDOMEN AND PELVIS WITHOUT CONTRAST IMPRESSION: 1. Bilateral lower lobe infiltrates and consolidations consistent with pneumonia. 2. Cirrhotic liver. 3. Splenomegaly and large venous collaterals in upper abdomen consistent with portal hypertension. 4. A small amount of ascites. Dictated by: Frida Vega M.D. on 03/12/2017 at 8:54 Approved by: Frida Vega M.D. on 03/12/2017 at 9:05 X-RAY PICC LINE PLACEMENT BY NURSE IMPRESSION: Tip of PICC lies within the atriocaval junction. Dictated by: Faith Bojorquez MD, PhD on 03/12/2017 at 18:47 Approved by: Faith Bojorquez MD, PhD on 03/12/2017 at 18:48 X-RAY CHEST ONE VIEW, PORTABLE. IMPRESSION: 1. Endotracheal tube tip approximately 2.5 cm from the silvano. Recommend withdrawal by approximately 1 cm. 2. Progressive increase in diffuse bilateral airspace opacities likely representing pulmonary edema/ARDS or pneumonia. Dictated by: Kumar Xie M.D. on 03/18/2017 at 14:50 Approved by: Kumar Xie M.D. on 03/18/2017 at 14:56 X-RAY CHEST ONE VIEW, PORTABLE IMPRESSION: No significant change in pulmonary edema and/or diffuse bilateral pneumonia. ARDS cannot be excluded. Dictated by: Efren White RRA Interpreted: Henry Mansfield MD on 03/19/2017 at 9: 54 Approved by: Henry Mansfield M.D. on 03/19/2017 at 14:34 . Cardiac Echo Impressions Echocardiogram 03/12/17 Left ventricular wall thickness is borderline increased. The ejection fraction is estimated to be 60-65%. Left ventricular wall motion is normal. The right ventricle is normal in size and function. Right ventricular systolic pressure is estimated to be 30 mmHg plus the clinically estimated CVP which cannot be estimated on this exam. The left atrial size is normal. Right atrial size is normal. There is no significant valvular heart disease. No overt evidence for endocarditis. The aortic root is normal size. No significant changes since prior study on 02/16/2017. Echocardiogram 02/16/2017 Borderline concentric left ventricular hypertrophy with ejection fraction 60- 65%. Grade I diastolic dysfunction. No valvular abnormality. Comparison is made with the echocardiogram of 11/11/2016, there has been no significant change. . Additional Diagnostics US RENAL SONOGRAM IMPRESSION: No hydronephrosis or large renal masses. The bladder could not be effectively imaged due to the patient's general medical condition. Dictated by: Boris Ferrer M.D. on 03/11/2017 at 8:51 Approved by: Boris Ferrer M.D. on 03/11/2017 at 8:53 . Plan Impression Impression #1 acute tubular necrosis #2 sepsis #3 hepatorenal syndrome Recommendations #1 patient to be dialyzed today for 3-1/2 hours on a standard dialyzer, 2 potassium bath, 400 blood flow, 600 dialysate flow, thousand of heparin and 400, and will take 2 L of fluid off. Neymar May DO Mar 22, 2017 10:47
--- NOTE | 2017-03-22 10:57 | NUR ---
Palliative Care Palliative Care received verbal order from Dr Ferguson 03/22/17 to assist with goals of care. Patient admitted 03/11/17. Palliative Care has seen patient during previous admissions. Selina Condon (daughter) [phone] Palliative Care to follow. Sheree Black
--- NOTE | 2017-03-22 11:02 | NUR ---
Palliative care note D/A: New referral received for PC to assist with goals of care. This worker asked to arrange for FCTM with project design engineer. Phone call to Gail at [facility], do not have an hour opening until 03/23 at 1300. Arrange for this time for FCTM with Dr. Lainez. Phone call to [facility] phone service and place call to pt dtr Selina at [phone]. [facility] Diane leaves msg indicating above meeting time and asking for pt three dtr's and any other important family members to attend. Informed by Dr. Lainez that she has been informed that medical team will be meeting with family today between 2-[address] Mendez will be interpreting. Dr. Lainez indicates no further need for FCTM for tomorrow and to cancel arrangements. Phone call to Gail at [facility] and 1300 time on 03/23/17 is cancelled. Phone call to [facility] phone line and speak to Eduardo. Phone call to Selina who does answer phone at this time. She is aware of planned meeting for this afternoon and is informed of cancellation for tomorrow's 1300 mtg. Note also that pt has a medical care provider who see's her for her liver disease. [phone]. This information is provided to Dr. Lainez. Pt has been seen in past by PC. Dr. Wild sent his notes to Sofia MCCRACKEN and discussed with her. Pt has three daughters. Eldest dtr Selina was elected to be family contact in October 2016. Pt lives with dtr Beth at [phone]. Other family members noted in past notes include Dillon at [phone] and Navin at [phone]. P: Palliative care to follow. Tracey REBOLLAR, [facility]
--- NOTE | 2017-03-22 11:12 | DRSVH ---
PROCEDURE: X-RAY CHEST ONE VIEW, PORTABLE ([id number]) INDICATIONS: fu aspiration TECHNIQUE: One view of the chest was acquired. COMPARISON: [facility], CR, XR CHEST 1VW (PORTABLE), 03/21/2017, 3:41. FINDINGS: Surgical changes and devices: ETT tip projected 3.5 cm above the silvano. Right PICC tube tip project ed over the lower SVC and right IJ CVL projected over the mid upper SVC. Cholecystectomy clips. Lungs and pleura: Diffuse, widespread bilateral pulmonary interstitial and air space opacities are p resent increased from prior examination. No pneumothorax. Mediastinum: Mediastinal contours appear normal. Heart size is normal. Bones and chest wall: No suspicious bony lesions. Overlying soft tissues appear unremarkable. IMPRESSION: 1. Support lines and tubes as above. Increasing pulmonary opacity suspicious for florid pulmonary edema, ARDS, or infection. Dictated by: Efren LEMAA Interpreted: Anusha Beaulieu MD on 03/22/2017 at 9:37 Approved by: Anusha Beaulieu M.D. on 03/22/2017 at 11:10
--- NOTE | 2017-03-22 11:18 | NUR ---
NUTRITION FOLLOW UP: ASSESS: 62 YO F admitted to CCU with hepatic encephalopathy, non alcoholic steatohepatitis, severe sepsis and acute renal failure. She required intubation and initiation of dialysis. Pt extubated 03/14 but required re-intubation 03/18. Pt remains NPO. NGT was unable to be placed 03/16 for enteral feeding; PICC was placed to initiate TPN 03/17, which continues to provide suboptimal macronutrient content. Palliative consult planned today, possible plan for comfort care. PMHx: Hepatitis C, Liver cirrhosis, thrombocytopenia secondary to splenic sequestration, portal HTN, leg edema, ascites, hypervolemic hypotonic hyponatremia, type 2 diabetes ID, GERD, depression, cholecystectomy. DIET: NPO X 11 days. TPN: 145 g Dex, 70 g AA and 10g lipids to provide 873 kcal and 70 g pro (45% kcal and 63% pro needs). LABS: Reviewed. BUN 55, CR 4.33, Glu 225, Ca 8.4, (03/21): Alb 2.6, PAB 4. MEDICATIONS: Reviewed. Insulin, Pressor, Fentanyl, Lactulose. GI: Stool via FMS. SKIN: No pressure injuries reported. ANTHROPOMETRICS: Current Wt: 96.4 kg, BMI: 41.5 kg/m2. Admit wt 103 kg IBW: 45.5 kg, Adj. BW 59.7 kg. ESTIMATED NEEDS (BMI, RENAL DIALYSIS, ES LIVER DISEASE,VENT): Calories: 7908-2800 kcal/day (30-35 kcal/kg Adj. BW) Protein: 90-110 g/day (1.5-1.8 g/kg Adj. BW) Fluids: ~6287-3652 ml/day or per nephrology NUTRITION DIAGNOSIS: 1) Increased nutrient needs related to increased demand for nutrients, as evidenced by requirement for renal dialysis, end-stage liver disease - PERSISTS. 2) Inadequate oral intake related to inability to consume sufficient energy, as evidenced by NPO status - PERSISTS. INTERVENTION: 1) Pending plan of care discussion, continue current TPN. 2) If family continues to desire full, aggressive care strongly recommend increasing TPN to better meet pt's estimated needs. Cirrhosis is not necessarily a reason to keep TPN at a suboptimal level. Per ASPEN, fat requirement for individual's with cirrhosis should be 30-40% of nonprotein calories. Alk Phos appear to be elevated but it appears to not be related to TPN infusion. If having issues with liver labs, consider cyclic lipids rather than severely reducing lipids and limiting calories. To prevent parenteral nutrition associated liver complications, ASPEN recommend keeping IVFE to less than 1 g/kg/day or decreasing dextrose. Protein also does not need to be limited as pt has ESRD on hemodialysis. 3) If pt's family desires continued care, recommend advancing TPN to 200 g dextrose, 90 g AA, 25 g lipids to provide 1290 kcal, 90 g protein; meeting 71% calorie and 100% protein needs. 4) Recommend slow advancement of TPN to goal of 310 g Dex, 110 g AA and 45 g lipids to provide 1945 kcal and 110 g protein to meet 100% estimated needs. MONITOR/EVALUATE: NPO status, wt, TPN tolerance/advance, POC, labs, GI/nutrition status. Follow per high nutrition risk guidelines.
[2017-03-22] MEDS: fentaNYL 2,500 mCg/250 mL 2,500 MCG in IV Premix 1 EACH IV SCH (12:21)
--- NOTE | 2017-03-22 12:53 | PCM.PHAPRO ---
Progress Altered mental status tpn#6 Fluids/HD Chem Glucose Macro Misc PARENTERAL NUTRITION ORDERS 6 22-Mar-17 Standard Hang Time: 2100 Substrates Total kcal: 873 AMINO ACIDS 70 g DEXTROSE 145 g Total Volume (mL): 1000 LIPIDS 10 g Sterile Water for Injection mL To Infuse Over (hrs): 24 Total Volume 1000 mL At at a rate of (mL/hr): 42 Additives Sodium Chloride 20 mEq "typical" daily requirements Sodium Acetate 10 mEq Sodium 50-120mEq Potassium Chloride 30 mEq Potassium 60-120mEq Potassium Phosphate 20 mEq Phosphate 20-40mEq Calcium Gluconate 4 mEq Magnesium 8-32mEq Magnesium Sulfate 8 mEq Calcium 9-22mEq Acetate* 80-120mEq Chloride* 80-120mEq Regular Insulin units *Depending on acid-base status Famotidine mg Multivitamins 1 std dose Insulin Regimen Trace Elements 1 std dose none Thiamine 100 mg Regular Low Intensity Subcut Folic Acid 1 mg Regular Medium Intensity Subcut Ascorbic Acid mg Regular High Intensity Subcut Regular Insulin Infusion Other: Special Instructions: Chao Blanchard Pharm D Mar 22, 2017 12:52
--- NOTE | 2017-03-22 14:14 | NUR ---
spiritual care: palliative care Visited with large number of extended family at the bedside today. They expressed their grief and the trouble they are having coming to a consensus as a family for the future care of the patient. It seems that some of the family would like to end care and allow the pt to peacefully pass away while others in the family would like to continue aggressive care. There are 11 children with countless in-laws, grandchildren and great-grandchildren. I listened to the family talk about their sadness and hope that they could reach a consensus and then prayed with pt at their request. Spiritual care will continue to follow as needed.
[2017-03-22] MEDS ORDERED: fentaNYL 2,500 mCg/250 mL 2,500 MCG in IV Premix 1 EACH IV SCH (15:19)
[2017-03-22] MEDS ORDERED: fentaNYL-PF 50 mCg/mL 2 mL Inj IVPUSH PRN (15:20)
[2017-03-22] MEDS ORDERED: LORazepam 100 mg/100 mL NS 100 MG in IV Premix 1 EACH IV SCH (15:20)
--- NOTE | 2017-03-22 15:45 | NUR ---
Dialysis note: 1 1/2 hours tx 1000 ml net UF Right IJ catheter, dsg dry and intact Pls see DTR for VS details, cont'd on Norepi gtt Qb 400-450 w/ cath limbs reversed A-V V-A due to poor cath function Heparin given On vent @ 90-100% FiO2 w/ sat in the 80-90's Cont'd on IV sedation After 1 1/2 hrs tx, dialysis stopped per Palliative MD; Dr May notified Catheter flushed, heparin dwelled and secured Report given to Elisa YORK
--- NOTE | 2017-03-22 16:44 | NUR ---
Social Work Note: Continued Discharge Planning Data& Assessment: Pt was discussed in multidisciplinary rounds today, per MD pt prognosis is poor and pt remains on the vent. Per MD pt family meeting is taking place this afternoon to discuss prognosis and plan of care. No MD orders identified at this time. SW to continue to follow. Plan: Pt remains on the vent. SW to continue to follow for prognosis and plan of care. SW to continue to follow. SUZANNE García
--- NOTE | 2017-03-22 17:18 | NUR ---
Increasing 02 needs, Fi02 to 100% on vent support, maintaining sats 86-92%. Appears comfortable and in no distress, occasionally attempting to open eyes. No movement of extremities noted. No UOP, FMS draining Lactulose, no stool. Abd soft. Suctioning mod-large amounts thick, wilder ETT secretions. Multiple family members at bedside throughout the day, meeting with Palliative medicine team and MDs this afternoon. Hemodialysis stopped this afternoon when family made the decision to move toward extubation/comfort care. DNR status noted. Multiple visitors at this time, will move forward withdrawing vent support when family is ready.
--- NOTE | 2017-03-22 17:24 | PCM.PNMED ---
Subjective Date of Service Mar 22, 2017 Subjective 62 yo morbidly obese woman admitted 9 days ago with sepsis and acute on chronic renal, respiratory and hepatic failures. She remains dialysis and ventilator dependent. Following a meeting with family members, Palliative care and the primary team, it was decided that ongoing aggressive care, as she has received, would not be appropriate or in her best interests. The family has requested that ventilation and other life prolonging measures cease once family members have been given an opportunity to visit [place] this afternoon. It appears that orders for transition to comfort care have been written by the Palliative team. As [facility] was involved in only vent management, we will sign off this case but remain available if we can help in any way. Exam Vital Signs Vital Sign - Last Date Time Temp Pulse Resp B/P Pulse Ox O2 Delivery O2 Flow Rate FiO2 03/22/17 16:00 90 26 143/44 98 100 03/22/17 12:00 37.3 03/22/17 08:00 Mechanical Ventilator 03/17/17 20:26 15.00 Intake and Output 03/21/17 03/21/17 03/22/17 Cumulative From/Thru 15:00 23:00 07:00 03/11/17 06:07 - 03/22/17 06:16 Intake Total 1161 ml 840 ml 12782 ml Output Total 150 ml 105 ml 62792 ml Balance 1011 ml 735 ml -461 ml Intake Oral 0 ml IV Total 608 ml 370 ml 66225 ml TPN/PPN 553 ml 470 ml 3114 ml Packed Cells 961 ml Output Urine Total 5 ml 580 ml Stool Total 150 ml 100 ml 1232 ml Urine/Stool Mix 50 ml Gastric Drainage Total 450 ml Ultrafiltrate 10685 ml # Bowel Movements 2 Lab and Diagnostics Result Diagram: 03/22/17 0430 03/22/17 0430 Microbiology Item Value Date Time Adenovirus DNA (PCR) - Final Complete 03/12/17 1234 Nasopharangeal Not Detected Blood Culture Received 03/12/17 0848 Blood Aerobic And Anaerobic Bottle Pending Sputum Quality Screen - Final Resulted 03/11/17 2010 Trachea MRSA (PCR) - Final Complete 03/11/17 1600 Nose Blood Culture - Preliminary Resulted 03/11/17 0703 Blood Aerobic And Anaerobic Bottle Strep Agalactiae - (Group B) Streptococcus pneumoniae Ag Screen - Final Complete 03/11/17 0620 Urine,Random Blood Culture - Preliminary Resulted 03/11/17 0620 Blood Aerobic And Anaerobic Bottle Strep Agalactiae - (Group B) X-Rays, CTs and MRIs X-RAY CHEST ONE VIEW, PORTABLE IMPRESSION: Bibasilar atelectasis. Recommend an upright PA and lateral chest radiograph performed in the radiology when the patient is able. Dictated by: Boris Ferrer M.D. on 03/11/2017 at 7:45 Approved by: Boris Ferrer M.D. on 03/11/2017 at 7:47 CT BRAIN WITHOUT CONTRAST IMPRESSION: 1. No acute intracranial abnormalities. 2. Cerebral volume loss and chronic microvascular ischemic changes. No significant discrepancy with the rn shift mgr radiology preliminary report. Dictated by: Frida Vega M.D. on 03/12/2017 at 7:39 Approved by: Frida Vega M.D. on 03/12/2017 at 7:41 CT CHEST, ABDOMEN AND PELVIS WITHOUT CONTRAST IMPRESSION: 1. Bilateral lower lobe infiltrates and consolidations consistent with pneumonia. 2. Cirrhotic liver. 3. Splenomegaly and large venous collaterals in upper abdomen consistent with portal hypertension. 4. A small amount of ascites. Dictated by: Frida Vega M.D. on 03/12/2017 at 8:54 Approved by: Frida Vega M.D. on 03/12/2017 at 9:05 X-RAY PICC LINE PLACEMENT BY NURSE IMPRESSION: Tip of PICC lies within the atriocaval junction. Dictated by: Faith Bojorquez MD, PhD on 03/12/2017 at 18:47 Approved by: Faith Bojorquez MD, PhD on 03/12/2017 at 18:48 X-RAY CHEST ONE VIEW, PORTABLE. IMPRESSION: 1. Endotracheal tube tip approximately 2.5 cm from the silvano. Recommend withdrawal by approximately 1 cm. 2. Progressive increase in diffuse bilateral airspace opacities likely representing pulmonary edema/ARDS or pneumonia. Dictated by: Kumar Xie M.D. on 03/18/2017 at 14:50 Approved by: Kumar Xie M.D. on 03/18/2017 at 14:56 X-RAY CHEST ONE VIEW, PORTABLE IMPRESSION: No significant change in pulmonary edema and/or diffuse bilateral pneumonia. ARDS cannot be excluded. Dictated by: Efren White [facility] Interpreted: Henry Mansfield MD on 03/19/2017 at 9: 54 Approved by: Henry Mansfield M.D. on 03/19/2017 at 14:34 . Cardiac Echo Impressions Echocardiogram 03/12/17 Left ventricular wall thickness is borderline increased. The ejection fraction is estimated to be 60-65%. Left ventricular wall motion is normal. The right ventricle is normal in size and function. Right ventricular systolic pressure is estimated to be 30 mmHg plus the clinically estimated CVP which cannot be estimated on this exam. The left atrial size is normal. Right atrial size is normal. There is no significant valvular heart disease. No overt evidence for endocarditis. The aortic root is normal size. No significant changes since prior study on 02/16/2017. Echocardiogram 02/16/2017 Borderline concentric left ventricular hypertrophy with ejection fraction 60- 65%. Grade I diastolic dysfunction. No valvular abnormality. Comparison is made with the echocardiogram of 11/11/2016, there has been no significant change. . Additional Diagnostics US RENAL SONOGRAM IMPRESSION: No hydronephrosis or large renal masses. The bladder could not be effectively imaged due to the patient's general medical condition. Dictated by: Boris Ferrer M.D. on 03/11/2017 at 8:51 Approved by: Boris Ferrer M.D. on 03/11/2017 at 8:53 . Assessment & Plan Ms. Shania To is a 62 year old lady here due to hepatic encephalopathy, non alcoholic steatoHepatits, Acute renal failure, and Insulin dependent Diabetes mellitus requiring emergent hemo-dialysis and lactulose treatments. Patient in multi-organ system failure with grim prognosis, will attempt to have a discussion with family in conjunction with palliative care in regards to goals of care. Encephalopathy, Present on admission. Active. - Initially Secondary to endstage liver cirrhosis/MOSHER and high ammonia levels. - History of Grade 2 esophageal varicies (August), Portal htn gastropathy. - Ammonia 307 initially. since trending to normal - Lactulose at 200 mg rectally Q4H with rectal balloon 30-60 mins. FMS tube in place. - Patient has been receiving daily dialysis and should continue dialysis until her fluid status improves. Severe Sepsis, not present on admission. Improved. Initially Met SIRS criteria with; Tachycardia, tachypnea and Fever. Lactic acid initially elevated returned to normal levels. - Likely secondary to bacteremia initially treated with penicillin, currently being treated with IV Zosyn. - No fevers, - 03/11 Blood cultures x4: Positive for Strep agalactiae, 03/12 cultures 4: No growth, 03/17 blood cultures 2 no growth, 03/18 blood cultures 4: No growth - 03/11 MRSA PCR negative, 03/18 MRSA PCR negative - PICC placed for nicardipine use, blood pressures low but has been maintained stable with use of nicardipine Bacteremia, present on admission, Active Initially 11/24 positive blood cultures for Strep agalactiae. - 03/12 Switched from Ceftriaxone to Penicillin per ID recommendation. - 03/17 switched from penicillin to Zosyn for broader coverage of possible aspiration pneumonia - no fevers, tachycardia, patient on vent Ventilator Dependent Respiratory Failure, not present on admission, worsening - 03/11 patient required intubation for urgent line placement for dialysis Sedated on propofol and fentanyl, this was DC on 03/14 the patient has remained partially obtunded since that time. - 03/18 patient was found to be in acute respiratory distress as noted by ABG with PO2 of 52, she was subsequently reintubated at that time. Fentanyl and Ativan were required to control the patient's breathing on the vent. - Will defer to ICU team for ventilator management. Acute on Chronic Normocytic Anemia, Present on admission. Improving - Hgb 9.5 initially, went down to 6.8, Required 3 units PRBC with improvement to 9.2. blood counts continue to slowly trend down. Source of blood loss currently unknown. - If Hgb less than 8.0 consider transfusion PRBC at that time. - Continue to monitor and transfuse as needed Acute Renal Failure, Present on admission. Active - Initially thought to be 2nd to pre-renal azotemia. - Creatinine initially 5.4, today 3.86, baseline 1.3. BUN initially 102 - Monitor I/O, Maya in place. - Nephrology consulted, and following - Hemodialysis done daily since 03/11/17 - Patient did not receive hemodialysis on 03/17, patient has received daily dialysis since that time. Acute Hyperkalemia, Present on admission. Resolved - Secondary to renal failure. EKG reviewed, with no T wave abnormalities. NSR. - Hemodilaysis done daily since 03/11/17 - Patient did not receive hemodialysis on 03/17, no major changes in potassium noted. Mixed Anion Gap Metabolic Acidosis and alkalosis and Respiratory Alkalosis. Present on admission. Active - ABGs daily until respiratory status improves - Will provide mechanical ventilation as required - We will defer to ICU team for ventilator management. Grade 1 Diastolic Heart failure, chronic. Present on admission. Active. - With pulmonary hypertension. - Echo 03/12/17 and 02/16 as above. Insulin Using Diabetes Mellitus, Present on admission. Active. HgA1C 5.9 - Increase home Lantus dose from 10 units to 30 units QHS. - Medium dose correctional scale insulin as patient is currently only on TPN Chronic Thrombocytopenia. Present on admission. Active. - Platelet counts remain stable. - Likely Splenic sequestration. - Monitor Elevated Troponin of uncertain significance. Chronic, present on admission. Stable - Elevated tropes - 0.166, with Q6 H trend. No EKG changes. - Previous tropoinins elevated. - Stress test 02/16/17 showed no ischemia. - Echocardiogram repeat on 03/12 shows "Left ventricular wall thickness is borderline increased. The ejection fraction is estimated to be 60-65%. No significant changes since prior study on 02/16/2017." Morbid Obesity. - BMI 41.1 Severe protein nutrition, present on admission, active. - Patient has received nothing by mouth for 6 days - TPN initiated 03/17 - Continue to monitor nutritional status. Hypertension, chronic. - Continue home meds when appropriate. Subclinical Hypothyroidism,acute on chronic. - Continue home Synthroid. Bowel regimen Senna and MiraLAX scheduled and PRN. Zofran when necessary for nausea and vomiting. SubQ heparin held for now due to hepatic coagulopathy. SCDs in place. Disposition: As patient required repeat intubation, prognosis guarded. Possibility of expiration in the hospital is likely at this point. Discussion with family about the patient's imminent demise and the possibility of compassionate extubation will likely take place tomorrow in conjunction with palliative care. VTE Mechanical Devices: Intermittant Pneumatic CD Resuscitation Status: CPR: Attempt Resuscitation Nacho Loyd MD Mar 22, 2017 17:23
[2017-03-22] MEDS ORDERED: Norepinephrine 8,000 mCg/250 mL NS Premix IV ONE (20:03)
[2017-03-22] MEDS ORDERED: TPN Per Pharmacist XX ONE (20:10)
[2017-03-22] MEDS ORDERED: Norepineph 8,000 mCg/250 mL NS 8,000 MCG in IV Premix 1 EACH IV SCH (20:10)
[2017-03-22] MEDS ORDERED: Total Parenteral Nutrition 1 BAG IV ONE (20:30)
--- NOTE | 2017-03-22 20:36 | PCM.PNMED ---
Subjective Date of Service Mar 22, 2017 Subjective Assessment: Patient remains intubated and comatose. We discussed again with the family the options for her care. In a group meeting involving all of her kids and multiple doctors including Dr. Winchester, Dr. Ferguson, Dr. Astorga, and Dr. Cho, we discussed the options for palliative care. The family was split on this decision with a slight majority deciding that end-of-life treatment would be best for this patient. The extended family was called to "say goodbye" to the patient. Ultimately the family decided that they would like to wait until morning to extubate the patient. Events Overnight: No acute events overnight. ROS:Due to the patient being comatose, a review of systems was unable to be obtained. Exam Vital Signs Vital Sign - Last Date Time Temp Pulse Resp B/P Pulse Ox O2 Delivery O2 Flow Rate FiO2 03/22/17 20:11 84 128/39 94 100 03/22/17 19:20 Ventilator 03/22/17 19:16 18 03/22/17 12:00 37.3 03/17/17 20:26 15.00 Intake and Output 03/21/17 03/21/17 03/22/17 Cumulative From/Thru 15:00 23:00 07:00 03/11/17 06:07 - 03/22/17 06:16 Intake Total 1161 ml 840 ml 42895 ml Output Total 150 ml 105 ml 32952 ml Balance 1011 ml 735 ml -461 ml Intake Oral 0 ml IV Total 608 ml 370 ml 46749 ml TPN/PPN 553 ml 470 ml 3114 ml Packed Cells 961 ml Output Urine Total 5 ml 580 ml Stool Total 150 ml 100 ml 1232 ml Urine/Stool Mix 50 ml Gastric Drainage Total 450 ml Ultrafiltrate 14490 ml # Bowel Movements 2 Exam General: Patient is currently intubated, comatose. HEENT: Normocephalic, atraumatic. Pupils equal, round, and minimally reactive to light and accommodation. Anicteric sclerae. right IJ HD cath placement. Cardiovascular: Normal rate and rhythm with II/ systolic murmur, no rubs, or gallops appreciated Pulmonary: Coarse sounds made by the vent. Coarse rhonchi appreciated diffusely. Equal air sounds bilaterally. Abdomen: Bowel tones present. Soft, Obese, scattered bruising, nondistended. Extremities: No clubbing, cyanosis, +3 non pitting edema of the arms and +3 pitting edema of the legs, no lymphadenopathy appreciated. Skin: Normal temperature, turgor, scattered bruising of the upper arms, no ulcers, or subcutaneous nodules appreciated. Neurological: Unable to assess due to intubation status Psychiatric: Unable to assess due to intubation status IVs and Medications IV Fluids 550 mL normal saline delivered with IV medications. Medications Reviewed: Medications were reviewed in detail Medications High-risk medications include: Fentanyl Lorazepam Lab and Diagnostics Result Diagram: 03/22/17 04303/22/17 0430 Microbiology Item Value Date Time Adenovirus DNA (PCR) - Final Complete 03/12/17 1234 Nasopharangeal Not Detected Blood Culture Received 03/12/17 0848 Blood Aerobic And Anaerobic Bottle Pending Sputum Quality Screen - Final Resulted 03/11/17 2010 Trachea MRSA (PCR) - Final Complete 03/11/17 1600 Nose Blood Culture - Preliminary Resulted 03/11/17 0703 Blood Aerobic And Anaerobic Bottle Strep Agalactiae - (Group B) Streptococcus pneumoniae Ag Screen - Final Complete 03/11/17 0620 Urine,Random Blood Culture - Preliminary Resulted 03/11/17 0620 Blood Aerobic And Anaerobic Bottle Strep Agalactiae - (Group B) X-Rays, CTs and MRIs X-RAY CHEST ONE VIEW, PORTABLE IMPRESSION: Bibasilar atelectasis. Recommend an upright PA and lateral chest radiograph performed in the radiology when the patient is able. Dictated by: Boris Ferrer M.D. on 03/11/2017 at 7:45 Approved by: Boris Ferrer M.D. on 03/11/2017 at 7:47 CT BRAIN WITHOUT CONTRAST IMPRESSION: 1. No acute intracranial abnormalities. 2. Cerebral volume loss and chronic microvascular ischemic changes. No significant discrepancy with the shift production associate radiology preliminary report. Dictated by: Frida Vega M.D. on 03/12/2017 at 7:39 Approved by: Frida Vega M.D. on 03/12/2017 at 7:41 CT CHEST, ABDOMEN AND PELVIS WITHOUT CONTRAST IMPRESSION: 1. Bilateral lower lobe infiltrates and consolidations consistent with pneumonia. 2. Cirrhotic liver. 3. Splenomegaly and large venous collaterals in upper abdomen consistent with portal hypertension. 4. A small amount of ascites. Dictated by: Frida Vega M.D. on 03/12/2017 at 8:54 Approved by: Frida Vega M.D. on 03/12/2017 at 9:05 X-RAY PICC LINE PLACEMENT BY NURSE IMPRESSION: Tip of PICC lies within the atriocaval junction. Dictated by: Faith Bojorquez MD, PhD on 03/12/2017 at 18:47 Approved by: Faith Bojorquez MD, PhD on 03/12/2017 at 18:48 X-RAY CHEST ONE VIEW, PORTABLE. IMPRESSION: 1. Endotracheal tube tip approximately 2.5 cm from the silvano. Recommend withdrawal by approximately 1 cm. 2. Progressive increase in diffuse bilateral airspace opacities likely representing pulmonary edema/ARDS or pneumonia. Dictated by: Kumar Xie M.D. on 03/18/2017 at 14:50 Approved by: Kumar Xie M.D. on 03/18/2017 at 14:56 X-RAY CHEST ONE VIEW, PORTABLE IMPRESSION: No significant change in pulmonary edema and/or diffuse bilateral pneumonia. ARDS cannot be excluded. Dictated by: Efren White [facility] Interpreted: Henry Mansfield MD on 03/19/2017 at 9: 54 Approved by: Henry Mansfield M.D. on 03/19/2017 at 14:34 . Cardiac Echo Impressions Echocardiogram 03/12/17 Left ventricular wall thickness is borderline increased. The ejection fraction is estimated to be 60-65%. Left ventricular wall motion is normal. The right ventricle is normal in size and function. Right ventricular systolic pressure is estimated to be 30 mmHg plus the clinically estimated CVP which cannot be estimated on this exam. The left atrial size is normal. Right atrial size is normal. There is no significant valvular heart disease. No overt evidence for endocarditis. The aortic root is normal size. No significant changes since prior study on 02/16/2017. Echocardiogram 02/16/2017 Borderline concentric left ventricular hypertrophy with ejection fraction 60- 65%. Grade I diastolic dysfunction. No valvular abnormality. Comparison is made with the echocardiogram of 11/11/2016, there has been no significant change. . Additional Diagnostics US RENAL SONOGRAM IMPRESSION: No hydronephrosis or large renal masses. The bladder could not be effectively imaged due to the patient's general medical condition. Dictated by: Boris Ferrer M.D. on 03/11/2017 at 8:51 Approved by: Boris Ferrer M.D. on 03/11/2017 at 8:53 . Assessment & Plan Ms. Shania To is a 62 year old lady here due to hepatic encephalopathy, non alcoholic steatoHepatits, Acute renal failure, and Insulin dependent Diabetes mellitus requiring emergent hemo-dialysis and lactulose treatments. Patient in multi-organ system failure with grim prognosis, will attempt to have a discussion with family in conjunction with palliative care in regards to goals of care. Encephalopathy, Present on admission. Active. - Initially Secondary to endstage liver cirrhosis/MOSHER and high ammonia levels. - History of Grade 2 esophageal varicies (August), Portal htn gastropathy. - Ammonia 307 initially. since trending to normal - Lactulose at 200 mg rectally Q4H with rectal balloon 30-60 mins. FMS tube in place. - Patient has been receiving daily dialysis and should continue dialysis until her fluid status improves. Severe Sepsis, not present on admission. Improved. Initially Met SIRS criteria with; Tachycardia, tachypnea and Fever. Lactic acid initially elevated returned to normal levels. - Likely secondary to bacteremia initially treated with penicillin, currently being treated with IV Zosyn. - No fevers, - 03/11 Blood cultures x4: Positive for Strep agalactiae, 03/12 cultures 4: No growth, 03/17 blood cultures 2 no growth, 03/18 blood cultures 4: No growth - 03/11 MRSA PCR negative, 03/18 MRSA PCR negative - PICC placed for nicardipine use, blood pressures low but has been maintained stable with use of nicardipine Bacteremia, present on admission, Active Initially 4/ positive blood cultures for Strep agalactiae. - 03/12 Switched from Ceftriaxone to Penicillin per ID recommendation. - 03/17 switched from penicillin to Zosyn for broader coverage of possible aspiration pneumonia - no fevers, tachycardia, patient on vent Ventilator Dependent Respiratory Failure, not present on admission, worsening - 03/11 patient required intubation for urgent line placement for dialysis Sedated on propofol and fentanyl, this was DC on 03/14 the patient has remained partially obtunded since that time. - 03/18 patient was found to be in acute respiratory distress as noted by ABG with PO2 of 52, she was subsequently reintubated at that time. Fentanyl and Ativan were required to control the patient's breathing on the vent. - Will defer to ICU team for ventilator management. Acute on Chronic Normocytic Anemia, Present on admission. Improving - Hgb 9.5 initially, went down to 6.8, Required 3 units PRBC with improvement to 9.2. blood counts continue to slowly trend down. Source of blood loss currently unknown. - If Hgb less than 8.0 consider transfusion PRBC at that time. - Continue to monitor and transfuse as needed Acute Renal Failure, Present on admission. Active - Initially thought to be 2nd to pre-renal azotemia. - Creatinine initially 5.4, today 3.86, baseline 1.3. BUN initially 102 - Monitor I/O, Maya in place. - Nephrology consulted, and following - Hemodialysis done daily since 03/11/17 - Patient did not receive hemodialysis on 03/17, patient has received daily dialysis since that time. Acute Hyperkalemia, Present on admission. Resolved - Secondary to renal failure. EKG reviewed, with no T wave abnormalities. NSR. - Hemodilaysis done daily since 03/11/17 - Patient did not receive hemodialysis on 03/17, no major changes in potassium noted. Mixed Anion Gap Metabolic Acidosis and alkalosis and Respiratory Alkalosis. Present on admission. Active - ABGs daily until respiratory status improves - Will provide mechanical ventilation as required - We will defer to ICU team for ventilator management. Grade 1 Diastolic Heart failure, chronic. Present on admission. Active. - With pulmonary hypertension. - Echo 03/12/17 and 02/16 as above. Insulin Using Diabetes Mellitus, Present on admission. Active. HgA1C 5.9 - Increase home Lantus dose from 10 units to 30 units QHS. - Medium dose correctional scale insulin as patient is currently only on TPN Chronic Thrombocytopenia. Present on admission. Active. - Platelet counts remain stable. - Likely Splenic sequestration. - Monitor Elevated Troponin of uncertain significance. Chronic, present on admission. Stable - Elevated tropes - 0.166, with Q6 H trend. No EKG changes. - Previous tropoinins elevated. - Stress test 6/27/17 showed no ischemia. - Echocardiogram repeat on 03/12 shows "Left ventricular wall thickness is borderline increased. The ejection fraction is estimated to be 60-65%. No significant changes since prior study on 02/16/2017." Morbid Obesity. - BMI 41.1 Severe protein nutrition, present on admission, active. - Patient has received nothing by mouth for 6 days - TPN initiated 03/17 - Continue to monitor nutritional status. Hypertension, chronic. - Continue home meds when appropriate. Subclinical Hypothyroidism,acute on chronic. - Continue home Synthroid. Bowel regimen Senna and MiraLAX scheduled and PRN. Zofran when necessary for nausea and vomiting. SubQ heparin held for now due to hepatic coagulopathy. SCDs in place. Disposition: As patient required repeat intubation, prognosis guarded. Possibility of expiration in the hospital is likely at this point. We discussed again with the family the options for her care. In a group meeting involving all of her kids and multiple doctors including Dr. Winchester, Dr. Ferguson, Dr. Yamila Dockery, and Dr. Cho, we discussed the options for palliative care. The family was split on this decision with a slight majority deciding that end-of- life treatment would be best for this patient. The extended family was called to "say goodbye" to the patient. Ultimately the family decided that they would like to wait until morning to extubate the patient. Pain Evaluation: Adequate Pain Control VTE Mechanical Devices: Intermittant Pneumatic CD Resuscitation Status: CPR: Attempt Resuscitation Attending Statement The patient was seen and examined together with Dr. Ferguson on 03/21/17 and I agree with the history, exam and plan as outlined in the note above. VTE Mechanical Devices: Intermittant Pneumatic CD Resuscitation Status: CPR: Attempt Resuscitation Attending Statement The patient was seen and examined together with Dr. Winchester on 03/22/2017 and I agree with the history, exam and plan as outlined in the note above. . Sigifredo Winchester DO Mar 22, 2017 20:36 Paramjit Parks MD Mar 26, 2017 07:42
[2017-03-23] VITALS (8 sets, daily range): BP systolic 100–130; BP diastolic 37–83; PULSE 92–94; RESP 16–30; O2SAT 83–94
[2017-03-23] MEDS: Chlorhexidine 0.12% 15 mL Oral Solution MT SCH ×4 (00:30→11:41)
--- NOTE | 2017-03-23 05:40 | NUR ---
Plan Family members decided to give patient one more day and to not extubate tonight. Family member states that the patient's daughter is in [place] and doesn't have papers to get into the [place]. Pt also states that if a MD was to sign a paper saying the patient was nearing end of life that the family member would be able to visit. Unsure whether family is trying to pursue this or not. Additional follow up needed during day with family/social work/case management/fertilizer applicator services.
--- NOTE | 2017-03-23 10:21 | PCM.PNSURG ---
Subjective Date of Service: Mar 23, 2017 Date of Service: Mar 23, 2017 Visit Information: Reason for Visit Ams,Arf Surgery/Surgery Date Post-Op Day # Date of Admission: Mar 11, 2017 at 08:52 Hospital Day # Subjective: Gastroenterology Progress Note Patient remains intubated and sedated. Decision was made overnight to compassionately extubate later this morning and transition to comfort care. Objective Vital Sign- Last 8 Hours Date Time Temp Pulse Resp B/P Pulse Ox O2 Delivery O2 Flow Rate FiO2 03/23/17 08:35 Ventilator 03/23/17 08:32 37.8 92 30 119/40 88 Mechanical Ventilator 03/23/17 08:25 92 111/41 86 100 03/23/17 06:03 92 03/23/17 04:19 93 116/45 83 100 03/23/17 03:19 93 21 130/37 87 Mechanical Ventilator 100 Intake and Output- Last 8 Hour 03/23/17 Cumulative From/Thru 07:00 03/11/17 06:07 - 03/23/17 05:37 Intake Total 747 ml 91876 ml Output Total 0 ml 99868 ml Balance 747 ml 247 ml Intake Oral 0 ml 0 ml IV Total 747 ml 18089 ml TPN/PPN 3618 ml Packed Cells 961 ml Output Urine Total 0 ml 585 ml Stool Total 1257 ml Urine/Stool Mix 50 ml Gastric Drainage Total 450 ml Ultrafiltrate 96901 ml # Bowel Movements 0 2 General: Other (Intubated and sedated) Neck: Other (right IJ present) Lungs: Coarse Heart: Regular Rate/Rhythm, Other (systolic murmur present) Abdomen: Soft Extremities: Edema Generalized Neuro: Other Catheters: Urethral 2 Way Maya Result Diagram: 03/22/17 0430 03/22/17 0430 Assessment & Plan Impression This is a unfortunate 62-year-old Nigerien-speaking only female currently intubated with a history of cirrhosis presumed due to MOSHER, MELD score of 23 as of March 12, 2017, complicated with portal hypertensive, splenomegaly, currently with history of status post cholecystectomy, diabetestype 2, chronic kidney disease stage 3, now currently on hemodialysis from hepatorenal syndrome, admitted with altered mental status, when she was found to have bacteremia, pneumonia, renal failure on hemodialysis and hepatic encephalopathy. I have had a long discussion on 03/20 with three of the family members in which one was able to speak Kinyarwanda. I have informed them of the poor prognosis of the patient at this point in time. I have also recommended that the family members get together and talk to each other in terms of goals of care for this patient. I think a palliative care/ethics consultation would be worthwhile for this patient given the multiorgan failure of this patient currently in the ICU setting. In regard to GI, I agree with lactulose rectally at this point in time given cirrhosis and HE. xifaxan 550mg po would be part of the standard of care for hepatic encephalopathy in addition to lactulose for this hospitalized pt if the patient was able to take this by mouth. CT chest/abdomen/pelvis no contrast 03/11/2017- IMPRESSION: 1. Bilateral lower lobe infiltrates and consolidations consistent with pneumonia. 2. Cirrhotic liver. 3. Splenomegaly and large venous collaterals in upper abdomen consistent with portal hypertension. 4. A small amount of ascites. RECOMMENDATIONS: 1. Patient will be compassionately extubated today and proceed with comfort care if needed. GI will sign off at this time. Problems: Resuscitation Status: CPR: Attempt Resuscitation SHANTA GARAY DO Mar 23, 2017 10:21
--- NOTE | 2017-03-23 14:51 | NUR ---
spiritual care: end of life Visited with family earlier in the day as they gathered around the pt and family requested that this cupola melting supervisor be present for the extubation of the pt at 2 p.m. When I returned at 1:50 the large family was gathered around the bedside. Prayed over the pt and with the family who has a strong sarah tradition. Waited in the hallway with three of the pt's young grandchildren while the pt was extubated. Added a final blessing after the pt .
--- NOTE | 2017-03-23 15:06 | PCM.DC.MEX ---
Discharge Summary Date of Service Mar 23, 2017 Dates of Hospitalization Date of Hospital Admission Mar 11, 2017 at 08:52 Date of Expiration: Mar 23, 2017 Time of Expiration: 14:10 Providers: Admitting Physician: Paramjit Parks MD Primary Care Physician: Carrie Elliott Attending Physician: Paramjit Parks MD Diagnosis at Time of Acute hypoxic respiratory failure Additional Diagnosis Hepatorenal syndrome Consultations Nephro: Dr. May, Dr. Bauer Pulmonary critical care: Dr. Han, Dr. Maria GI: Dr. Vegas ID: Dr. Melquiades Miller XRay, CTs & MRIs X-RAY CHEST ONE VIEW, PORTABLE IMPRESSION: Bibasilar atelectasis. Recommend an upright PA and lateral chest radiograph performed in the radiology when the patient is able. Dictated by: Boris Ferrer M.D. on 03/11/2017 at 7:45 Approved by: Boris Ferrer M.D. on 03/11/2017 at 7:47 CT BRAIN WITHOUT CONTRAST IMPRESSION: 1. No acute intracranial abnormalities. 2. Cerebral volume loss and chronic microvascular ischemic changes. No significant discrepancy with the shift nurse manager radiology preliminary report. Dictated by: Frida Vega M.D. on 03/12/2017 at 7:39 Approved by: Frida Vega M.D. on 03/12/2017 at 7:41 CT CHEST, ABDOMEN AND PELVIS WITHOUT CONTRAST IMPRESSION: 1. Bilateral lower lobe infiltrates and consolidations consistent with pneumonia. 2. Cirrhotic liver. 3. Splenomegaly and large venous collaterals in upper abdomen consistent with portal hypertension. 4. A small amount of ascites. Dictated by: Frida Vega M.D. on 03/12/2017 at 8:54 Approved by: Frida Vega M.D. on 03/12/2017 at 9:05 X-RAY PICC LINE PLACEMENT BY NURSE IMPRESSION: Tip of PICC lies within the atriocaval junction. Dictated by: Faith Bojorquez MD, PhD on 03/12/2017 at 18:47 Approved by: Faith Bojorquez MD, PhD on 03/12/2017 at 18:48 X-RAY CHEST ONE VIEW, PORTABLE. IMPRESSION: 1. Endotracheal tube tip approximately 2.5 cm from the silvano. Recommend withdrawal by approximately 1 cm. 2. Progressive increase in diffuse bilateral airspace opacities likely representing pulmonary edema/ARDS or pneumonia. Dictated by: Kumar Xie M.D. on 03/18/2017 at 14:50 Approved by: Kumar Xie M.D. on 03/18/2017 at 14:56 X-RAY CHEST ONE VIEW, PORTABLE IMPRESSION: No significant change in pulmonary edema and/or diffuse bilateral pneumonia. ARDS cannot be excluded. Dictated by: Efren White [facility] Interpreted: Henry Mansfield MD on 03/19/2017 at 9: 54 Approved by: Henry Mansfield M.D. on 03/19/2017 at 14:34 . Cardiac Echo Impression Echocardiogram 03/12/17 Left ventricular wall thickness is borderline increased. The ejection fraction is estimated to be 60-65%. Left ventricular wall motion is normal. The right ventricle is normal in size and function. Right ventricular systolic pressure is estimated to be 30 mmHg plus the clinically estimated CVP which cannot be estimated on this exam. The left atrial size is normal. Right atrial size is normal. There is no significant valvular heart disease. No overt evidence for endocarditis. The aortic root is normal size. No significant changes since prior study on 02/16/2017. Echocardiogram 02/16/2017 Borderline concentric left ventricular hypertrophy with ejection fraction 60- 65%. Grade I diastolic dysfunction. No valvular abnormality. Comparison is made with the echocardiogram of 11/11/2016, there has been no significant change. . Other Diagnostics US RENAL SONOGRAM IMPRESSION: No hydronephrosis or large renal masses. The bladder could not be effectively imaged due to the patient's general medical condition. Dictated by: Boris Ferrer M.D. on 03/11/2017 at 8:51 Approved by: Boris Ferrer M.D. on 03/11/2017 at 8:53 . Brief History This is a unfortunate 62-year-old [place]an-speaking only female currently intubated with a history of cirrhosis presumed due to MOSHER, MELD score of 23 as of March 12, 2017, complicated with portal hypertensive, splenomegaly, currently with history of status post cholecystectomy, diabetes type 2, chronic kidney disease stage 3, now currently on hemodialysis from hepatorenal syndrome, admitted with altered mental status after a day of nausea and vomiting at home. On admission on 03/11, she was found to have bacteremia, pneumonia, renal failure on hemodialysis and hepatic encephalopathy. Hospital Course Pt has received 12 days of critical care in CCU to treat her underlying hepatorenal failure as well as streptococcal septicemia. She had been ventilatory dependent throughout her hospitalization with a brief period of extubation after which she had to be re-intubated. She needed norepinephrine to sustain her hypotensive blood pressure. She had very poor urine output and is dialysis dependent. She continued to have low grade fevers,an elevated procalcitonin and white count. She got cultured again today and started on IV micafungin to cover for possible fungemia. Pt was evaluated by multiple specialists, all of which agree that this case was terminal. After extensive discussion with family it was elected to proceed with compassionate extubation, patient shortly after extubation. Encephalopathy, Present on admission. Active. - Initially Secondary to endstage liver cirrhosis/MOSHER and high ammonia levels. - History of Grade 2 esophageal varicies (August), Portal htn gastropathy. - Ammonia 307 initially. - Lactulose at 200 mg rectally Q4H with rectal balloon 30-60 mins. [address]MS tube in place. - Patient has been receiving daily dialysis, wich was discontinued based on palliative measures. Severe Sepsis, not present on admission. Improved. Initially Met SIRS criteria with; Tachycardia, tachypnea and Fever. Lactic acid initially elevated returned to normal levels. - Likely secondary to bacteremia initially treated with penicillin, currently being treated with IV Zosyn. - No fevers - 03/11 Blood cultures x4: Positive for Strep agalactiae, 03/12 cultures 4: No growth, 03/17 blood cultures 2 no growth, 03/18 blood cultures 4: No growth - 03/11 MRSA PCR negative, 03/18 MRSA PCR negative - PICC placed for nicardipine use, blood pressures low but had been maintained stable with use of nicardipine Bacteremia, present on admission, Active Initially / positive blood cultures for Strep agalactiae. - 03/12 Switched from Ceftriaxone to Penicillin per ID recommendation. - 03/17 switched from penicillin to Zosyn for broader coverage of possible aspiration pneumonia - no fevers, tachycardia. Ventilator Dependent Respiratory Failure, not present on admission, worsening - 03/11 patient required intubation for urgent line placement for dialysis Sedated on propofol and fentanyl, this was DC on 03/14 the patient has remained partially obtunded since that time. - 03/18 patient was found to be in acute respiratory distress as noted by ABG with PO2 of 52, she was subsequently reintubated at that time. Fentanyl and Ativan were required to control the patient's breathing on the vent. - Compassionate extubation complete 03/23 Acute on Chronic Normocytic Anemia, Present on admission. Improving - Hgb 9.5 initially, went down to 6.8, Required 3 units PRBC with improvement to 9.2. blood counts continue to slowly trend down. Source of blood loss currently unknown. - If Hgb less than 8.0 consider transfusion PRBC at that time. Acute Renal Failure, Present on admission. Active - Initially thought to be 2nd to pre-renal azotemia. - Creatinine initially 5.4, today 3.86, baseline 1.3. BUN initially 102 - Monitor I/O, Maya in place. - Nephrology consulted, and following - Hemodialysis done daily since 03/11/17 - Dialysis discontinued on 03/22 in conjunction with withdrawal of care Acute Hyperkalemia, Present on admission. Resolved - Secondary to renal failure. EKG reviewed, with no T wave abnormalities. NSR. - Hemodilaysis done daily since 03/11/17 - Dialysis discontinued on 03/22 in conjunction with withdrawal of care Mixed Anion Gap Metabolic Acidosis and alkalosis and Respiratory Alkalosis. Present on admission. Active - ABGs daily until respiratory status improves - Will provide mechanical ventilation as required - Compassionate extubation complete 03/231 Grade 1 Diastolic Heart failure, chronic. Present on admission. Active. - With pulmonary hypertension. - Echo 03/12/17 and 02/16 as above. Insulin Using Diabetes Mellitus, Present on admission. Active. HgA1C 5.9 - TPN DC on 03/23 in the pm in conjunction with Compassionate extubation Chronic Thrombocytopenia. Present on admission. Active. - Platelet counts remain stable. - Likely Splenic sequestration. Elevated Troponin of uncertain significance. Chronic, present on admission. Stable - Elevated tropes - 0.166, with Q6 H trend. No EKG changes. - Previous tropoinins elevated. - Stress test 02/16/17 showed no ischemia. - Echocardiogram repeat on 03/12 shows "Left ventricular wall thickness is borderline increased. The ejection fraction is estimated to be 60-65%. No significant changes since prior study on 02/16/2017." Morbid Obesity. - BMI 41.1 Severe protein nutrition, present on admission, active. - Patient has received nothing by mouth for 6 days - TPN initiated 03/17 - TPN DC on 03/23 in the pm in conjunction with Compassionate extubation Hypertension, chronic. - Pt was hypotensive throughout hospital stay Subclinical Hypothyroidism,acute on chronic. - Pt remained euthyroid during hospital course. Exam Test 03/11/17 06:20 03/11/17 08:01 03/11/17 17:50 03/11/17 19:20 Hemoglobin A1c 5.9% (4.8-5.6) Osmolality 311 (275-300) Urine Legionella pneumophilia Ag Negative (Negative) Urine Color Dark yellow (YELLOW) Urine Appearance Hazy (CLEAR,HAZY) Urine pH 5.0 (5.0-8.0) Urine Specific [place] 1.016 (1.003-1.035) Urine Protein 100mg/dL (NEG,TRACE) Urine Glucose (UA) Negativemg/dL (NEGATIVE) Urine Ketones Negativemg/dL (NEGATIVE) Urine Occult Blood Large (NEGATIVE) Urine Nitrite Negative (NEGATIVE) Urine Bilirubin Negative (NEGATIVE) Urine Urobilinogen Normalmg/dL (NORMAL) Urine Leukocyte Esterase Negative (NEGATIVE) Urine RBC 11-50/hpf (0-2) Urine WBC 0-5/hpf (0-5) Urine Epithelial Cells Occasional/hpf (NONE-MOD) Urine Crystals Oxalic acid crystals (NONE Urine Bacteria Few/hpf (NONE-FEW) Urine Hyaline Casts Occasional/lpf (NONE) Urine Granular Casts None seen (NONE SEEN) Urine Waxy Casts None seen (NONE SEEN) Urine Red Blood Cell Casts Rare (NONE SEEN) Urine White Blood Cell Casts None seen (NONE SEEN) Urine Mucus None seen (None Seen) Urine Trichomonas None seen (NONE SEEN) Urine Yeast None (NONE SEEN) Urinalysis Comment None Urine Culture Reflexed Not indicated Ethylene Glycol None detectedmg/dL Troponin T 0.193ug/L (0.0-0.011) Test 03/11/17 22:28 03/12/17 02:05 03/12/17 04:30 03/13/17 12:07 Haptoglobin < 10mg/dL (34-200) Hepatitis B Surface Antigen Negative (Negative) Hepatitis B Surface Antibody Non reactive (.) Hepatitis B Core Total Antibody Negative (Negative) Hepatitis C Antibody <0.1s/co ratio (0.0-0.9) Band Neutrophils % 13% (1-5) Cortisol 33.1ug/dL (.) Hematology Comments Activated Partial Thromboplast Time 45.3sec (22.8-33.0) Fibrinogen 197mg/dL (157-380) D-Dimer 5.38mg/L FEU (<0.50) Lactate Dehydrogenase 384U/L (100-190) Urine Osmolality 321mOs/kH2O (250-1200) Urine Random Creatinine 136mg/dL (15-278) Urine Random Sodium 23mEq/L Urine Urea Nitrogen 96mg/dL (Not Estab.) Test 03/14/17 04:45 03/17/17 10:07 03/18/17 10:20 03/19/17 04:15 Cholesterol Level 106mg/dL (100-199) LDL Cholesterol, Calculated 62.000mg/dL (0-99) VLDL Cholesterol 32.000mg/dL HDL Cholesterol 12mg/dL (>39) Cholesterol/HDL Ratio 8.83 (0.0-4.4) Hold Mcdonough Top Tube Received (Received) Ammonia 45ug/dL (18-53) Thyroid Stimulating Hormone (TSH) 4.280uIU/mL (0.450-4.500) Free Thyroxine 0.63ng/dL (0.82-1.77) Test 03/21/17 05:35 03/22/17 04:30 Lactic Acid Level 2.4mmol/L (0.4-2.0) Ionized Calcium 1.12mmol/L (1.17-1.32) Total Bilirubin 5.7mg/dL (0.0-1.2) Aspartate Amino Transf (AST/SGOT) 44U/L (0-50) Alanine Aminotransferase (ALT/SGPT) 14U/L (0-32) Alkaline Phosphatase 176U/L (25-165) Total Protein 5.0g/dL (6.4-8.4) Albumin 2.6g/dL (3.4-5.0) Prealbumin 4mg/dL (20-40) White Blood Count 14.3th/mm3 (3.8-10.1) Red Blood Count 2.56mil/mm3 (3.90-5.20) Hemoglobin 7.7g/dL (12.0-15.6) Hematocrit 23.6% (35.0-46.0) Mean Corpuscular Volume 92.2fL (81-100) Mean Corpuscular Hemoglobin 30.1pg (27.0-35.0) Mean Corpuscular Hemoglobin Concent 32.6% (32.0-37.0) Red Cell Distribution Width 17.9% (12.3-15.4) Platelet Count 77bil/L (150-400) Neutrophils (%) (Auto) 78.8% (40-74) Lymphocytes (%) (Auto) 10.1% (14-46) Monocytes (%) (Auto) 6.0% (4-12) Eosinophils (%) (Auto) 4.3% (0-5) Basophils (%) (Auto) 0.2% (0-3) Prothrombin Time 13.3sec (8.1-12.5) Prothromb Time International Ratio 1.24ratio Sodium Level 136mEq/L (134-144) Potassium Level 4.8mEq/L (3.5-5.2) Chloride Level 97mEq/L (97-108) Carbon Dioxide Level 22mmol/L (18-29) Blood Urea Nitrogen 55mg/dL (8-27) Creatinine 4.33mg/dL (0.57-1.00) Estimat Glomerular Filtration Rate 15mL/min (>59) Glucose Level 225mg/dL (60-99) Calcium Level 8.4mg/dL (8.5-10.1) Phosphorus Level 2.9mg/dL (2.5-4.9) Magnesium Level 1.6mg/dL (1.6-2.6) Triglycerides Level 131mg/dL (0-149) Lipase 66U/L (13-60) Procalcitonin 19.90ng/mL (0.00-0.08) Microbiology Results Item Value Date Time Adenovirus DNA (PCR) - Final Complete 03/12/17 1234 Nasopharangeal Not Detected Blood Culture Received 03/12/17 0848 Blood Aerobic And Anaerobic Bottle Pending Sputum Quality Screen - Final Resulted 7/20/17 2010 Trachea MRSA (PCR) - Final Complete 03/11/17 1600 Nose Blood Culture - Preliminary Resulted 03/11/17 0703 Blood Aerobic And Anaerobic Bottle Strep Agalactiae - (Group B) Streptococcus pneumoniae Ag Screen - Final Complete 03/11/17 0620 Urine,Random Blood Culture - Preliminary Resulted 03/11/17 0620 Blood Aerobic And Anaerobic Bottle Strep Agalactiae - (Group B) Time spent Greater than 35 minutes spent planning and coordinating compassionate extubation copies to: [facility],Sigifredo Cruz DO Mar 23, 2017 15:06 Paramjit Parks MD Mar 26, 2017 07:40
--- NOTE | 2017-03-23 20:18 | NUR ---
Extubation: @ 1300 I was notified by patient family that they had come to a decision to extubate patient at 1400. Dr Ferguson was notified. Family present in room when patient was extubated at 1358 by RT. Estimated time of 1410. Family requested to spend time with patient and family gathered until 1615. Pt daughter Selina requested [facility] in [place] to be called. home was called and arranged [place] [facility] [place] Family aware and accepting of plan. (Arrangements and information communicated to family by RN and all questions/concerns addressed with help of [place] speaking sole seamer).
== END 2017-03-23 14:10 | disposition expired | DRG 870 ==
LOC: SED 05:44 → CCU 08:52 → PCC 03-16 17:58 → CCU 03-18 07:49
PROVIDERS: ADMIT Internal Medicine; ATTEND Internal Medicine
PROC: 4A033R1 Measurement of Arterial Saturation, Peripheral, Percutaneous Approach (ICD-10-PCS; 2017-03-11)
PROC: 0BH17EZ Insertion of Endotracheal Airway into Trachea, Via Natural or Artificial Opening (ICD-10-PCS; 2017-03-11)
PROC: 5A1945Z Respiratory Ventilation, 24-96 Consecutive Hours (ICD-10-PCS; 2017-03-11)
PROC: 05HM33Z Insertion of Infusion Device into Right Internal Jugular Vein, Percutaneous Approach (ICD-10-PCS; 2017-03-11)
PROC: B513ZZA Fluoroscopy of Right Jugular Veins, Guidance (ICD-10-PCS; 2017-03-11)
PROC: 30233N1 Transfusion of Nonautologous Red Blood Cells into Peripheral Vein, Percutaneous Approach (ICD-10-PCS; 2017-03-12)
PROC: 03HY32Z Insertion of Monitoring Device into Upper Artery, Percutaneous Approach (ICD-10-PCS; 2017-03-12)
PROC: 5A1955Z Respiratory Ventilation, Greater than 96 Consecutive Hours (ICD-10-PCS; principal; 2017-03-18)
PROC: 0BH17EZ Insertion of Endotracheal Airway into Trachea, Via Natural or Artificial Opening (ICD-10-PCS; 2017-03-18)
DX: A40.1 Sepsis due to streptococcus, group B (principal); G93.40 Encephalopathy, unspecified; K76.7 Hepatorenal syndrome; R65.21 Severe sepsis with septic shock; J96.01 Acute respiratory failure with hypoxia; J18.9 Pneumonia, unspecified organism; N17.0 Acute kidney failure with tubular necrosis; E87.2 Acidosis; K76.6 Portal hypertension; I24.8 Other forms of acute ischemic heart disease; Z68.41 Body mass index [BMI] 40.0-44.9, adult; I50.32 Chronic diastolic (congestive) heart failure; E11.9 Type 2 diabetes mellitus without complications; Z79.4 Long term (current) use of insulin; E87.5 Hyperkalemia; K75.81 Nonalcoholic steatohepatitis (NASH); K74.60 Unspecified cirrhosis of liver; I12.9 Hypertensive chronic kidney disease with stage 1 through stage 4 chronic kidney disease, or unspecified chronic kidney disease; N18.3 Chronic kidney disease, stage 3 (moderate); K21.9 Gastro-esophageal reflux disease without esophagitis; K72.90 Hepatic failure, unspecified without coma; E86.0 Dehydration; E66.01 Morbid (severe) obesity due to excess calories; E02 Subclinical iodine-deficiency hypothyroidism; D69.6 Thrombocytopenia, unspecified; Z51.5 Encounter for palliative care